=== PATIENT | female | born 1945 | race Caucasian/White ===

== ENCOUNTER → 2016-04-06 | Outpatient (CLI) | payer OTHER ==
[~2016-04-06] MED LIST: ALBU1AER9 INH; AMR2 PO; ASPEC81 PO; ATOR-24 PO; CLOP1TAB15 PO; COEN1CAP28 PO; CZR50 PO; FLUO20CA35 PO; INSUINJ8 SC; ISOS30TA3 PO; METF1000 PO; METO50TA16 PO; MULT-190 PO; NITR0.4S UT; PRIM50TA29 PO; REPA0.5T PO; VTMB122500 PO
[2016-04-06 12:28] LABS: HEMATOCRIT 36.9 % (37-47); MEAN CORPUSCULAR HGB CONC 34.1 g/dl (32-36); MEAN PLATELET VOLUME 10.1 fL (7.4-10.4); PLATELET COUNT 244 K/uL (130-400); RED BLOOD COUNT 4.34 M/uL (4.2-5.4); WHITE BLOOD COUNT 8.22 K/uL (4.8-10.8)
[2016-04-06 16:45] LABS: ALT/SGPT 26 U/L (12-78); AST/SGOT 20 U/L (15-37); BLOOD UREA NITROGEN 13 mg/dl (7-18); BUN/CREATININE RATIO 13.3 (10-20); CARBON DIOXIDE 26 mmol/L (21-32); CHLORIDE 105 mmol/L (98-107); CHOLESTEROL 134 mg/dl (0-200); CHOLESTEROL/HDL RATIO 2.7; CREATININE 0.97 mg/dl (0.60-1.20); GLUCOSE 68 mg/dl (70-99); HDL CHOLESTEROL 50 mg/dl; POTASSIUM 4.3 mmol/L (3.5-5.1); SODIUM 141 mmol/L (136-145)
[2016-04-06 16:48] LABS: ALB/GLOB RATIO 0.9 (0.9-2); ALKALINE PHOSPHATASE 65 U/L (45-117); LDL CHOLESTEROL CALCULATED 59 mg/dl; TRIGLYCERIDES 124 mg/dl (0-150); VERY LOW DENSITY LIPOPROT CALC 25 mg/dl
== END | disposition home or self-care (01) ==
LOC: C.LABBFT 09:12
PROVIDERS: ATTEND Internal Medicine
DX: I25.10 Atherosclerotic heart disease of native coronary artery without angina pectoris (principal)

== ENCOUNTER → 2016-07-20 | Outpatient (CLI) | payer OTHER ==
--- NOTE | 2016-07-20 15:08 | MAMMOGRAPHY REPORT ---
BILATERAL DIGITAL SCREENING MAMMOGRAM WITH CAD: 07/20/2016 CLINICAL HISTORY: Routine screening. Patient has no complaints. TECHNIQUE: Current study was also evaluated with a Computer Aided Detection (CAD) system. Bilatera l CC and MLO views were obtained. COMPARISON: Comparison is made to exams dated: 07/14/2015 mammogram, 08/26/2014 mammogram, 08/12/2014 m ammogram, 05/30/2013 mammogram, 05/21/2012 mammogram, and 05/17/2011 mammogram - [facility]. BREAST COMPOSITION: There are scattered areas of fibroglandular density in both breasts. FINDINGS: No suspicious masses, calcifications, or areas of architectural distortion are noted in e ither breast. There has been no significant interval change compared to prior exams. Bilateral puneet gn-appearing calcifications are not significantly changed. A biopsy marker clip is again noted in t he right lower inner quadrant. IMPRESSION: ACR BI-RADS CATEGORY 2: BENIGN There is no mammographic evidence of malignancy. A 1 year screening mammogram is recommended. The p atient will receive written notification of the results. Approximately 10% of breast cancers are not detected with mammography. A negative mammographic repor t should not delay biopsy if a clinically suggestive mass is present. Monie Pereira M.D. /:07/20/2016 12:22:39 Critical Care Nurse Specialist: Shaila FOSTER(Roddy)(M), [facility] letter sent: Normal 1/2 BI-RADS Code: ACR BI-RADS Category 2: Benign
== END | disposition home or self-care (01) ==
LOC: C.MAMM 09:09
PROVIDERS: ATTEND Internal Medicine
DX: Z12.31 Encounter for screening mammogram for malignant neoplasm of breast (principal)

== ENCOUNTER → 2016-10-09 | Outpatient (CLI) | payer OTHER ==
[2016-10-09 12:27] LABS: HEMATOCRIT 36.8 % (37-47); MEAN CELL VOLUME 86.6 fL (80-100); MEAN CORPUSCULAR HEMOGLOBIN 29.6 pg (25-34); MEAN CORPUSCULAR HGB CONC 34.2 g/dl (32-36); MEAN PLATELET VOLUME 9.9 fL (7.4-10.4); PLATELET COUNT 235 K/uL (130-400); RED BLOOD COUNT 4.25 M/uL (4.2-5.4); WHITE BLOOD COUNT 7.16 K/uL (4.8-10.8)
[2016-10-09 12:51] LABS: ESTIMATED AVERAGE GLUCOSE 212 mg/dl; HA1C FLAG Normal (Normal)
[2016-10-09 12:52] LABS: BLOOD UREA NITROGEN 15 mg/dl (7-18); GLUCOSE 125 mg/dl (70-99)
[2016-10-09 12:53] LABS: ALT/SGPT 29 U/L (12-78); BUN/CREATININE RATIO 14.9 (10-20); CALCIUM 9.3 mg/dl (8.5-10.1); CARBON DIOXIDE 28 mmol/L (21-32); CHLORIDE 107 mmol/L (98-107); CHOLESTEROL 128 mg/dl (0-200); POTASSIUM 5.3 mmol/L (3.5-5.1); SODIUM 139 mmol/L (136-145); TRIGLYCERIDES 131 mg/dl (0-150); VERY LOW DENSITY LIPOPROT CALC 26 mg/dl
[2016-10-09 13:03] LABS: ALB/GLOB RATIO 0.9 (0.9-2); ALKALINE PHOSPHATASE 67 U/L (45-117); AST/SGOT 19 U/L (15-37); CHOLESTEROL/HDL RATIO 3.3; HDL CHOLESTEROL 39 mg/dl; LDL CHOLESTEROL CALCULATED 63 mg/dl
== END | disposition home or self-care (01) ==
LOC: C.LABBFT 09:20
PROVIDERS: ATTEND Physician Assistant
DX: I25.10 Atherosclerotic heart disease of native coronary artery without angina pectoris (principal); E11.9 Type 2 diabetes mellitus without complications

== ENCOUNTER → 2017-04-23 | Outpatient (CLI) | payer OTHER ==
[2017-04-23 12:23] LABS: HEMATOCRIT 36.1 % (37-47); HEMOGLOBIN 11.7 g/dL (12.0-16.0); MEAN CELL VOLUME 87.4 fL (80-100); MEAN CORPUSCULAR HEMOGLOBIN 28.3 pg (25-34); MEAN CORPUSCULAR HGB CONC 32.4 g/dl (32-36); MEAN PLATELET VOLUME 10.7 fL (7.4-10.4); PLATELET COUNT 243 K/uL (130-400); RED CELL DISTRIBUTION WIDTH CV 13.7 % (11.5-14.5); RED CELL DISTRIBUTION WIDTH SD 43.6 fL (36.4-46.3); WHITE BLOOD COUNT 7.46 K/uL (4.8-10.8)
[2017-04-23 12:34] LABS: HEMOGLOBIN A1C 8.1 % (4.5-5.6)
[2017-04-23 12:48] LABS: ALBUMIN 3.4 gm/dl (3.4-5.0); ALT/SGPT 25 U/L (12-78); AST/SGOT 20 U/L (15-37); BLOOD UREA NITROGEN 15 mg/dl (7-18); CALCIUM 9.4 mg/dl (8.5-10.1); CARBON DIOXIDE 27 mmol/L (21-32); CHOLESTEROL 113 mg/dl (0-200); CREATININE 1.08 mg/dl (0.60-1.20); GLUCOSE 196 mg/dl (70-99); POTASSIUM 4.7 mmol/L (3.5-5.1); SODIUM 137 mmol/L (136-145)
[2017-04-23 12:51] LABS: ALKALINE PHOSPHATASE 67 U/L (45-117); LDL CHOLESTEROL CALCULATED 56 mg/dl; TOTAL PROTEIN 7.8 gm/dl (6.4-8.2)
[2017-04-23 14:13] LABS: CREATININE RANDOM URINE 79.4 mg/dl
== END | disposition home or self-care (01) ==
LOC: C.LABBFT 09:09
PROVIDERS: ATTEND Internal Medicine
DX: E11.9 Type 2 diabetes mellitus without complications (principal); E78.5 Hyperlipidemia, unspecified; I10 Essential (primary) hypertension

== ENCOUNTER → 2017-07-23 | Outpatient (CLI) | payer OTHER ==
--- NOTE | 2017-07-24 12:45 | MAMMOGRAPHY REPORT ---
BILATERAL DIGITAL SCREENING MAMMOGRAM TOMOSYNTHESIS WITH CAD: 07/23/2017 CLINICAL HISTORY: Routine screening. Patient has no complaints. TECHNIQUE: Breast tomosynthesis in addition to standard 2D mammography was performed. Current study was also evaluated with a Computer Aided Detection (CAD) system. COMPARISON: Comparison is made to exams dated: 07/20/2016 mammogram, 07/14/2015 mammogram, 09/10/2014 m ammogram, 09/10/2014 stereotactic biopsy, 08/26/2014 mammogram, and 08/12/2014 mammogram - [facility]. BREAST COMPOSITION: There are scattered areas of fibroglandular density in both breasts. FINDINGS: There is an 8 mm irregular focal asymmetry in the upper outer middle one third of the left breast, for which additional targeted ultrasound and possible additional mammographic views are veronica mmended. There are moderate vascular calcifications and scattered benign rodlike and round/coarse calcificatio ns in the breasts. No other suspicious masses, asymmetries, areas of architectural distortion or prince picious microcalcifications identified. IMPRESSION: ACR BI-RADS CATEGORY 0: INCOMPLETE EVALUATION: NEED ADDITIONAL IMAGING EVALUATION The 8 mm irregular focal asymmetry in the left upper outer breast needs additional evaluation. The patient will be called to schedule an appointment. Approximately 10% of breast cancers are not detected with mammography. A negative mammographic report should not delay biopsy if a clinically suggestive mass is present. Marline Reed M.D. ay/:07/23/2017 14:24:16 Manager Banking: Aishwarya FOSTER(Roddy)(Rey), [facility] letter sent: Addl Imaging 0 BI-RADS Code: ACR BI-RADS Category 0: Incomplete Evaluation: Need Additional Imaging Evaluation
== END | disposition home or self-care (01) ==
LOC: C.MAMM 10:57
PROVIDERS: ATTEND Internal Medicine
DX: Z12.31 Encounter for screening mammogram for malignant neoplasm of breast (principal); N64.89 Other specified disorders of breast

== ENCOUNTER → 2017-07-26 | Outpatient (CLI) | payer OTHER ==
--- NOTE | 2017-07-26 12:41 | MAMMOGRAPHY REPORT ---
ULTRASOUND OF LEFT BREAST: 07/26/2017 CLINICAL HISTORY: Callback from screening mammogram for left breast asymmetry. COMPARISON: Comparison is made to exams dated: 07/23/2017 mammogram, 07/20/2016 mammogram, 07/14/2015 m ammogram, 08/12/2014 mammogram, 05/30/2013 mammogram, and 05/21/2012 mammogram - [facility]ter. TECHNIQUE: Real-time targeted ultrasound of the left breast was performed. FINDINGS: Real-time, high-resolution targeted ultrasound was performed of the left upper outer quadra nt in the region of the 8 mm irregular focal asymmetry seen on the recent screening mammogram. In th e left 2:00 breast, 5 cm from the nipple, there is an irregular hypoechoic solid mass with non-circum scribed margins which measures 6 x 7 x 5 mm. This corresponds with the mammographic asymmetry and is highly suspicious for malignancy. Recommend ultrasound-guided core needle biopsy for further evalua tion. Targeted ultrasound was performed of the left axillary region, which shows morphologically normal lef t axillary lymph nodes without evidence of adenopathy. IMPRESSION: ACR BI-RADS CATEGORY 5: HIGHLY SUGGESTIVE OF MALIGNANCY - FOLLOW-UP RECOMMENDED 1. Irregular hypoechoic 7 mm mass in the left 2:00 breast on ultrasound, which corresponds with the n ew irregular mammographic asymmetry. The mass is suspicious for malignancy and ultrasound-guided cor e needle biopsy is recommended for further evaluation. 2. No evidence of left axillary adenopathy. A phone call was made to the physician's office to confirm faxed results were received. The patient was verbally notified of the results. She tentatively scheduled the biopsy before leaving the depart ment. I will leave it up to the patient's referring provider if she can safely discontinue baby aspi rin for a few days (preferably 5-7 days) prior to the procedure. Monie Pereira M.D. /:07/26/2017 08:57:32 Emt I/99: Shaila DAN)(Rey), [facility] letter sent: Abnormal 4/5 BI-RADS Code: ACR BI-RADS Category 5: Highly Suggestive Of Malignancy
== END | disposition home or self-care (01) ==
LOC: C.MAMM 08:29
PROVIDERS: ATTEND Internal Medicine
DX: N63.21 Unspecified lump in the left breast, upper outer quadrant (principal)

== ENCOUNTER → 2017-08-01 | Outpatient (CLI) | payer OTHER ==
--- NOTE | 2017-08-01 11:09 | Discharge Instructions ---
Discharge Instructions Procedure Procedure Date: August 01, 2017. Reason for visit: Left Mass. Discharge Discharge Date: August 01, 2017. Discharge Diagnosis: status post breast biopsy Instructions Activity Recommendations: Additional Limitations (see below) Return to School/Work: no limitations Recommended Home Diet: No Limitations Provider Instructions: ACTIVITY RECOMMENDATIONS: * No lifting, pushing, pulling or exercising the affected side for three days. RETURN TO SCHOOL/WORK: * You may return to work/school after the procedure, but do not perform any strenuous activities for 24 to 48 hours. MEDICATIONS: * Tylenol (two 325 mg) every four to six hours if needed for mild pain (if not allergic to Tylenol). DIET: * Resume previous diet. SPECIAL CARE INSTRUCTIONS: * Keep biopsy site dry for 24 hours. May shower after 24 hours, but do not soak (bathe) incision. * May remove Tegaderm (plastic patch) tomorrow AFTER showering. * Leave the steri-strips on for one week. Allow the steri-strips to fall off by themselves. If not off after one week, you may remove them. You may place a Bandaid crosswise over the strips, if desired. * Apply ice 10 minutes on and 10 minutes off as needed. * Wear a bra at bedtime to sleep more comfortably for 2-3 days. * Your referring physician should have the results after approximately 5 to 7 business days. * Call for unusual bleeding, fever, drainage, etc or if you have any questions call during normal business hours or after hours call Dr Pereira, . FOLLOW UP VISIT: Follow-up with Referring Physician as scheduled. Allergies Coded Allergies: Lisinopril (Unverified Allergy, Mild, Cough, 12/09/14) Dedrick Quan Recommendations: Call your doctor if: * Temperature above 101 degrees * Pain not relieved by pain medicine ordered * There is increased drainage or redness from any incision * You have any unanswered questions or concerns. Your Doctors Instructions noted above were prepared by provider Monie Pereira. Patient Signature Section: Patient Instructions Signature Page William Xie Patient (or Guardian) Signature/Date: I have read and understand the instructions given to me by my caregivers. Caregiver/RN/Doctor Signature/Date: The above-named patient and/or guardian has received patient instructions on this date. + Original Patient Signature Page (only) stays with chart. Please make copy for patient.
--- NOTE | 2017-08-01 15:04 | MAMMOGRAPHY REPORT ---
ULTRASOUND GUIDED BIOPSY LEFT BREAST: 08/01/2017 CLINICAL HISTORY: Left 2:00 breast mass. PATIENT CONSENT: The procedure, risks and benefits were discussed with the patient and informed writt en consent was obtained. A timeout was performed immediately prior to the procedure. PROCEDURE DESCRIPTION: With ultrasound guidance, aseptic technique, and lidocaine as the local anesth etic (1% lidocaine to anesthetize the skin and 1% lidocaine with epinephrine to anesthetize the deepe r tissues), the mass of concern in the left 2:00 breast was sampled 5 times with a 14-gauge Achieve b iopsy needle. Immediately thereafter, with ultrasound guidance, aseptic technique, and lidocaine as the local anesthetic, a metallic localizer clip was placed centrally in the mass. Direct pressure wa s applied to the site immediately post procedure and hemostasis was achieved. Postprocedure unilater al mammograms were performed to confirm placement of the clip in the expected location of the breast mass. The patient tolerated the procedure without complication. She was given wound care instructio ns. The specimens were sent to pathology for analysis. COMPARISON: Comparison is made to exams dated: 07/26/2017 ultrasound, 07/23/2017 mammogram, 07/20/2016 m ammogram, 07/14/2015 mammogram, 08/26/2014 mammogram, and 08/12/2014 mammogram - [facility]ter. IMPRESSION: ULTRASOUND GUIDED BIOPSY Ultrasound-guided core needle biopsy of the left 2:00 breast mass, with clip placement. The patient will receive pathology results from her referring provider. Monie Pereira M.D. ah/:08/01/2017 11:10:16 Medical Research Assistant: Shaila DAN)(M), [facility]
--- NOTE | 2017-08-01 15:08 | MAMMOGRAPHY REPORT ---
UNILATERAL LEFT DIGITAL DIAGNOSTIC MAMMOGRAM TOMOSYNTHESIS: 08/01/2017 CLINICAL HISTORY: Status post left breast biopsy. TECHNIQUE: Breast tomosynthesis in addition to standard 2D mammography was performed. Postprocedura l left CC and ML tomosynthesis images were obtained. COMPARISON: Comparison is made to exams dated: 07/23/2017 mammogram, 07/26/2017 ultrasound, 07/20/2016 m ammogram, 07/14/2015 mammogram, 09/10/2014 mammogram, and 09/10/2014 stereotactic biopsy - [facility]. BREAST COMPOSITION: There are scattered areas of fibroglandular density in the left breast. FINDINGS: A new ribbon-shaped biopsy marker clip is seen at the site of the biopsied mass in the left 2:00 breast. No significant postbiopsy hematoma is seen. IMPRESSION: POST PROCEDURE IMAGING FOR MARKER PLACEMENT New biopsy marker clip status post left breast biopsy. Pathology results are pending. Approximately 10% of breast cancers are not detected with mammography. A negative mammographic report should not delay biopsy if a clinically suggestive mass is present. Monie Pereira M.D. ah/:08/01/2017 11:32:59 Data Center Manager: Shaila FOSTER(R)(M), [facility] BI-RADS Code: Post Procedure Imaging For Marker Placement
== END | disposition home or self-care (01) ==
LOC: C.MAMM 10:28
PROVIDERS: ATTEND Internal Medicine
DX: N63.20 Unspecified lump in the left breast, unspecified quadrant (principal); C50.912 Malignant neoplasm of unspecified site of left female breast

== ENCOUNTER → 2017-10-30 | Outpatient (CLI) | payer OTHER ==
[~2017-10-30] MED LIST changes: -ALBU1AER9 INH; -ASPEC81 PO; -CLOP1TAB15 PO; -INSUINJ8 SC; -ISOS30TA3 PO; +NVLNI SQ; -REPA0.5T PO; +REPA1TAB40 PO; +VNTHFA/IN INH
[2017-10-30 12:45] LABS: HEMATOCRIT 34.1 % (37-47); MEAN CELL VOLUME 86.1 fL (80-100); MEAN CORPUSCULAR HEMOGLOBIN 27.8 pg (25-34); MEAN CORPUSCULAR HGB CONC 32.3 g/dl (32-36); RED CELL DISTRIBUTION WIDTH CV 14.5 % (11.5-14.5); RED CELL DISTRIBUTION WIDTH SD 45.6 fL (36.4-46.3); WHITE BLOOD COUNT 6.98 K/uL (4.8-10.8)
[2017-10-30 12:49] LABS: ALBUMIN 3.3 gm/dl (3.4-5.0); ALKALINE PHOSPHATASE 70 U/L (45-117); ALT/SGPT 25 U/L (12-78); AST/SGOT 22 U/L (15-37); BLOOD UREA NITROGEN 15 mg/dl (7-18); CALCIUM 8.8 mg/dl (8.5-10.1); CARBON DIOXIDE 24 mmol/L (21-32); CHOLESTEROL 101 mg/dl (0-200); GLUCOSE 191 mg/dl (70-99); LDL CHOLESTEROL CALCULATED 43 mg/dl; POTASSIUM 5.6 mmol/L (3.5-5.1); SODIUM 133 mmol/L (136-145); TOTAL PROTEIN 7.2 gm/dl (6.4-8.2)
[2017-10-30 13:14] LABS: BASO % 1.1 %; BASO ABS # 0.08 K/uL (0-0.2); EOS % 10.7 %; EOS ABS # 0.75 K/uL (0-0.5); IG# 0.01 K/uL (0.00-0.02); LYMPH % 22.2 %; LYMPH ABS # 1.55 K/uL (1.2-3.4); MEAN PLATELET VOLUME 12.3 fL (7.4-10.4); MONO % 9.5 %; MONO ABS # 0.66 K/uL (0.11-0.59); NEUT % 56.4 %; NEUT ABS # 3.93 K/uL (1.4-6.5); PLATELET COUNT 65 K/uL (130-400)
== END | disposition home or self-care (01) ==
LOC: C.LAB1850 10:47
PROVIDERS: ATTEND Internal Medicine
DX: I25.10 Atherosclerotic heart disease of native coronary artery without angina pectoris (principal); E11.65 Type 2 diabetes mellitus with hyperglycemia; D05.10 Intraductal carcinoma in situ of unspecified breast

== ENCOUNTER → 2017-11-05 | Outpatient (CLI) | payer OTHER ==
[~2017-11-05] MED LIST changes: +GADAVIST IV PRN
--- NOTE | 2017-11-06 14:57 | MAMMOGRAPHY REPORT ---
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 Reexcision of the medial steve n performed 10/04/2017 demonstrated 2 additional foci of DCIS. COMPARISON: Prior screening mammograms dated 07/23/2017, 07/20/2016, 08/12/2014, 05/30/2013, stereotactic right breast biopsy and postprocedure mammogram dated 09/10/2014, left breast diagnostic ultrasound da merna 07/26/2017, left breast core needle biopsy dated 08/01/2017. TECHNIQUE: Using a 1.5 Machelle magnet and dedicated breast coil, multisequence axial images were obtain ed through the breasts. After uneventful IV administration of 8 mL of Gadavist, dynamic multiphase c ontrast-enhanced axial images, and sagittal postcontrast were obtained. Temporal subtraction axial i mages and 3-D MIP images are provided. Everything was then reviewed on a 3-D workstation, [employer]. FINDINGS: Right breast: There is minimal background parenchymal enhancement. There is susceptibility artifact from a biopsy marker clip in the 6:00 posterior right breast, denoting the site of prior benign stere otactic biopsy. There is a single conspicuous focus of enhancement in the 9:00 middle one third of t he right breast measuring 4 x 4 x 5 mm (axial page 77/120, sagittal page 111/136), that demonstrates associated mixed plateau and washout kinetics, no significant T2 hyperintensity. Although this could represent background enhancement, given that it is the only conspicuous focus, targeted second look ultrasound and possible ultrasound-guided core biopsy is recommended. No other suspicious mass, non- mass enhancement or suspicious kinetics identified in the right breast. No suspicious right axillary lymphadenopathy. Left breast: There is minimal background parenchymal enhancement. There is a skin surgical scar in t he left upper outer quadrant, in addition to mild asymmetric diffuse left breast skin thickening, ski n edema and trabecular edema. There is small cylindrical surgical cavity/fluid collection measuring 1 x 3 cm at the lumpectomy bed in the 2:00 middle one third of the left breast, with expected archite ctural distortion and associated diffuse irregular non-mass enhancement throughout the surgical site. This non-mass enhancement and associated architectural distortion measures approximately 4.1 cm in AP by 2.4 cm in craniocaudal by 2.7 cm in transverse dimension and the MRI appearance could represent postsurgical change and/or residual disease. The associated kinetics are predominantly persistent e xcept for 1 small fingerlike projection along the posterior lateral/superior aspect of the surgical s ite which measures 3 mm and demonstrates plateau-type kinetics. Given this is the only focal area of plateau type kinetics near or at the surgical bed it raises suspicion for residual DCIS. No other c onspicuous non-mass enhancement, mass enhancement or suspicious kinetics identified in the left breas t. The nipple areolar complex is intact. The retromammary fat is intact. There is expected archite ctural distortion in the left axilla from lymph node sampling. No suspicious left axillary lymphaden opathy. There is susceptibility artifact from median sternotomy wires. Asymmetric enlargement and heterogene ous enhancement of the right thyroid lobe. IMPRESSION: ACR BI-RADS CATEGORY 0: INCOMPLETE EVALUATION: NEED ADDITIONAL IMAGING EVALUATION 1. One conspicuous focus of enhancement in the 9:00 middle one third of the right breast measuring 4 x 4 x 5 mm that could represent normal background enhancement although targeted second look ultrasou nd, possible ultrasound-guided core biopsy is recommended given that it is the only area of enhanceme nt within the right breast. 2. Expected architectural distortion, small 1 x 3 cm cylindrical fluid collection and associated irr egular non-mass enhancement at the lumpectomy bed in the 2:00 middle one third of the left breast. T he associated non-mass enhancement which measures approximately 4.1 x 2.4 x 2.7 cm demonstrates predo minantly persistent type kinetics, with one single 3mm fingerlike projection demonstrating plateau ty pe kinetics along the posterior lateral/superior aspect of the surgical site, which raises suspicion for an additional focus of DCIS. 3. No other suspicious mass, non-mass enhancement or suspicious kinetics identified in the left [address]ia st. 4. Stable biopsy marker clip in the 6:00 posterior right breast. Marline Reed M.D. 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
== END | disposition home or self-care (01) ==
LOC: C.MRI 09:03
PROVIDERS: ATTEND Surgery
DX: D05.12 Intraductal carcinoma in situ of left breast (principal); Z98.890 Other specified postprocedural states

== ENCOUNTER → 2017-11-07 | Outpatient (CLI) | payer OTHER ==
[~2017-11-07] MED LIST changes: -GADAVIST IV PRN
[2017-11-07 17:17] LABS: BASO % 0.4 %; BASO ABS # 0.03 K/uL (0-0.2); EOS ABS # 0.15 K/uL (0-0.5); HEMATOCRIT 33.4 % (37-47); HEMOGLOBIN 10.9 g/dL (12.0-16.0); IG# 0.02 K/uL (0.00-0.02); LYMPH % 31.7 %; LYMPH ABS # 2.33 K/uL (1.2-3.4); MEAN CELL VOLUME 86.3 fL (80-100); MEAN CORPUSCULAR HEMOGLOBIN 28.2 pg (25-34); MEAN CORPUSCULAR HGB CONC 32.6 g/dl (32-36); MEAN PLATELET VOLUME 10.3 fL (7.4-10.4); MONO % 8.2 %; NEUT % 57.4 %; NEUT ABS # 4.21 K/uL (1.4-6.5); PLATELET COUNT 274 K/uL (130-400); RED CELL DISTRIBUTION WIDTH CV 14.7 % (11.5-14.5); WHITE BLOOD COUNT 7.34 K/uL (4.8-10.8)
[2017-11-07 17:26] LABS: ALBUMIN 3.4 gm/dl (3.4-5.0); ALKALINE PHOSPHATASE 71 U/L (45-117); ALT/SGPT 26 U/L (12-78); AST/SGOT 20 U/L (15-37); BLOOD UREA NITROGEN 12 mg/dl (7-18); CALCIUM 9.1 mg/dl (8.5-10.1); CARBON DIOXIDE 23 mmol/L (21-32); CREATININE 1.03 mg/dl (0.60-1.20); GLUCOSE 217 mg/dl (70-99); SODIUM 134 mmol/L (136-145); TOTAL PROTEIN 7.5 gm/dl (6.4-8.2)
== END | disposition home or self-care (01) ==
LOC: C.LABBFT 14:07
PROVIDERS: ATTEND Internal Medicine
DX: C50.919 Malignant neoplasm of unspecified site of unspecified female breast (principal)

== ENCOUNTER 2024-05-25 10:00 | Observation (INO) ==
[2024-05-25] MEDS: SODIUM CHLORIDE 0.9% 1,000 ML IV SCH (10:48)
--- NOTE | 2024-05-25 11:00 | Emergency Department Note ---
Impression & Plan Generalized weakness, Diarrhea, Hypomagnesemia, JOBY (acute kidney injury), Pulmonary edema, Dyspnea ED Provider Note ED Provider Note NAME: CARLA MOORE AGE:78 SEX: Female : 1945 ARRIVES VIA: Private vehicle INFORMANT: Patient ED PROVIDER(s): Marj Sung DO CHIEF COMPLAINT: Diarrhea, weakness, fatigue HPI: This is an 78-year-old female who presents emergency department due to concern for 1 week of diarrhea with worsening weakness and fatigue. Patient denies nausea, vomiting, and fevers but admits to chills. She states she has intermittent brief episodes of abdominal pain. She denies any known sick contacts, no change in medications, no change in diet, no recent travel. She denies any history of IBS or IBD. She denies noting any blood with the diarrhea. She states she is having upwards of 6-7 episodes per day. PAST MEDICAL HISTORY:See Below PAST SURGICAL HISTORY:See Below FAMILY HISTORY:See Below SOCIAL HISTORY:See Below HOME MEDICATIONS:See Below ALLERGIES:See Below VITALS:See Below PHYSICAL EXAMINATION: GENERAL: alert, well appearing, well nourished, no distress, non-toxic EYE EXAM: normal conjunctiva, PERRL and EOM's grossly intact OROPHARYNX: no exudate, no erythema, lips, buccal mucosa, and tongue normal and mucous membranes are dry NECK: supple, no nuchal rigidity, no adenopathy, non-tender LUNGS: Clear to auscultation. Normal chest wall mechanics, no w/r/r HEART: no murmurs, S1 normal and S2 normal ABDOMEN: abdomen soft, non-tender, normo-active bowel sounds, no masses, no rebound or guarding. SKIN: no rashes, petechiae, orbruising UPPER EXTREMITIES: upper extremities are grossly normal. FROM, nml pulses b/l. LOWER EXTREMITIES: No pitting edema. FROM, nml pulses b/l. NEURO EXAM: Normal sensorium, cranial nerves II-XII grossly intact, normal speech, no facial droop,nogross weakness of arms, no gross weakness of legs. Gross sensation intact. No ataxia. Vital Signs: reviewed and remarkable Differential Diagnosis: dehydration, stroke, anemia, hypoglycemia, hyponatremia, hypernatremia, urinary tract infection, pneumonia, bronchitis, sepsis, gastroenteritis, additional abdominal pathology, metabolic abnormalities, as well as others were considered MEDICAL DECISION MAKING: This is an 78-year-old female who presents emergency department due to concern for 1 week of persistent diarrhea with increased weakness and fatigue. Unclear etiology per bedside discussion. She was afebrile and hemodynamically stable on arrival. She did appear clinically dehydrated. Labs drawn and sent, IV established, EKG performed at bedside and interpreted by me and patient monitored on telemetry. She was started on IV fluid rehydration. Patient was noted to have hypomagnesemia and she was given repletion. She was noted to be hyperglycemic as well and was given IV insulin. Following further rehydration and monitoring this was rechecked and was still elevated and she was given an additional dose of IV insulin. No evidence for DKA. Patient reported feeling slight improvement and was interested in p.o. trial. She tolerated ice chips and then water without difficulty. She then was able to tolerate devaughn dakotah. She did not have any further diarrhea while present in the emergency department. Patient was noted to have hyponatremia although I suspect that some of this was related to her hyperglycemia as well as decreased oral intake throughout the week. Patient's blood work was rechecked as a precaution to monitor for improvement as clinically she reported feeling well and her preference was to be discharged home. Patient was able to urinate, a specimen was obtained and sent and was suggestive of infection. She was started on IV antibiotics. I suspect some of this is due to the recent diarrhea this week and keeping up with personal hygiene. After patient tolerated p.o., we discussed ambulatory trial. While ambulating patient became very tachypneic and dyspneic. I reexamined the patient and noted bilateral rails. A stat bedside chest x-ray was ordered now showing new pulmonary edema. Patient's fluids were stopped and she was given a dose of IV Lasix. Due to concern for evolving symptoms and tenuous volume status, we discussed further inpatient management. Case discussed with the hospitalist team for additional evaluation and management. Patient did remain hemodynamically stable and was not overly hypoxic despite her tachypnea and increased work of breathing. Consultation(s): 1644: Discussed with Dr. Kim, [facility] hospitalist team, for additional evaluation and management. ER Treatment Provided: See below Diagnostics Interpreted By Me: -ECG: Normal sinus at 73, normal axis, normal intervals, nonspecific ST/T wave changes -Cardiac Monitoring: An order was placed for continuous cardiac monitoring. The monitor shows a rate of 77 with normal sinus rhythm. -Laboratory studies: As stated above and show below. -Imaging studies: cxr: Bilateral pulmonary edema, no pleural effusions, no wide mediastinum, no focal consolidation Triage Nursing Note Reviewed Prior/Outside Records Reviewed Critical care: Critical care of 44 min performed to assess and manage high likelihood of life- threatening electrolyte abnormalities and acute pulmonary edema, involving labs and imaging performed with assessment to evaluate diarrhea, dehydration, and acute dyspnea diagnosis with frequent reassessment. This time includes bedside time, treatment discussions with patient/family/consultants, documentation time and excludes procedure time. Past Med/Surg History Problem List (Updated 05/25/24 @ 18:23 by Marj Sung DO) Dyspnea (Acute) Pulmonary edema (Acute) JOBY (acute kidney injury) (Acute) Hypomagnesemia (Acute) UTI (urinary tract infection) Diarrhea (Acute) Generalized weakness (Acute) Gait disorder Allergic rhinitis Overweight (BMI 25.0-29.9) Abnormal PFT Dyspnea on exertion Solitary pulmonary nodule Wheeze Postmenopausal estrogen deficiency Sore throat Congestion of nasal sinus Cough Headache Bacterial sinusitis Sensorineural hearing loss of both ears Diabetic nephropathy associated with type 2 diabetes mellitus Uncontrolled type 2 diabetes mellitus with hyperglycemia, with long-term current use of insulin Seborrheic keratoses Abrasion, right lower leg, initial encounter Subacromial bursitis Rotator cuff tendinitis Toe fracture Glenohumeral arthritis Toe swelling Left shoulder pain CAD (coronary artery disease) (Chronic) 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) Tremor (Chronic) Osteopenia (Acute) Obesity (Acute) Hypertension (Chronic) Dyslipidemia (Chronic) Depression (Chronic) Breast cancer (Chronic 07/2017) left breast infiltrating ductal CA dx 07/2017 (ER+/WI+, Her 2 -) and right breast invasive ductal CA dx 11/2017 (ER+/WI+, Her 2 +), s/p elective B/L mastectomy with right axillary dissection (0/7 nodes +), on Arimedex since Jan 2018 Arthralgia of multiple sites (Acute) Arteriosclerotic cardiovascular disease (Acute) Chronic kidney disease Type 2 diabetes mellitus treated with insulin (Chronic) 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 Sinusitis Parkinsonism Anemia (Chronic) Tremor of both hands (Chronic) Internal hemorrhoid (Chronic) Gait instability (Chronic) Hypercalcemia Hypomagnesemia Hypophosphatemia Medical History Arthritis Hx of breast cancer Anxiety Neuropathy Myocardial Infarction History of COVID-19 Thrombocytopenia DM type 2 (diabetes mellitus, type 2) CAD (coronary artery disease) Tremor Hypertension Hyperlipidemia Unstable angina (03/16/14) Surgical History H/O bilateral mastectomy H/O lumpectomy History of tooth extraction History of surgery History of colonoscopy History of trigger finger History of open reduction and internal fixation (ORIF) procedure History of cataract surgery History of cardiac cath History of coronary artery bypass graft Family History Sister Breast cancer Father Alcoholism Mother Heart disease Uncle Heart disease Daughter Family history of diabetes mellitus Other No family history of adverse response to anesthesia Denies family history of Ovarian cancer Prostate cancer Myocardial infarction Colorectal cancer Social History Smoking Status: Former smoker Tobacco Type: Cigarettes Age Started Using Tobacco: 13; Age Quit Using Tobacco: 43; packs per day: 0.75; Smoking End Date: 35 years ago; Second Hand Exposure: No; Do You Dip or Chew Tobacco: No; Hx Alcohol Use: No Hx Substance Use: No Preferred Language: Albanian Communication Ability: Effective Visual Impairment: No Limitations Hearing Ability: Normal Composing Room Machinist Required: No Beliefs That Will Affect Care: None marital status: Current Living Situation: Spouse current occupational status: retired 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 [employer] Other Information That Helps Us Care for You: No Feels Safe at Home: Yes Safety Concerns: Feels Safe At This Time Childhood Exposure to Second-Hand Smoke: Yes Diet: regular caffeine: Yes Dental Care, Regularly: No Physical Activity Frequency: Does not Exercise Seatbelt Use: always Sunscreen Use: Yes Assistive Devices: None Allergies Allergies Allergy/AdvReac Type Severity Reaction Status Date / Time lisinopril Allergy Intermediate Cough Verified 05/12/24 14:17 isosorbide AdvReac Headache Verified 05/12/24 14:17 Home Meds Home Medications Medication Instructions Recorded Confirmed anastrozole 1 mg tablet 1 mg PO QAM 11/08/18 05/25/24 coenzyme Q10 200 mg capsule 200 mg PO QAM 01/06/20 05/25/24 lancets 33 gauge (OneTouch Delica 02/09/20 05/12/24 Plus Lancet) choline [id number] 1 tab PO QAM 08/27/20 05/25/24 tablet vit C 250 mg-vit E 90 mg-zinc 40 1 tab PO BID 09/26/21 05/25/24 mg-copper 1 ev-vvsesy-[id number] capsule (PreserVision AREDS-2) prevagen 1 tab PO DAILY 05/29/22 05/25/24 cyanocobalamin (vitamin B-12) 1,000 mcg PO .3XWK 12/19/23 05/25/24 2,500 mcg tablet Previous Rx's Medication Instructions Recorded blood-glucose meter (OneTouch #1 ea 07/29/20 Verio Meter) Spacer for Inhaler #1 ea 09/27/21 blood-glucose meter (OneTouch #1 ea 03/24/22 Verio Flex Meter) clopidogrel 75 mg tablet 75 mg PO DAILY #90 tabs 05/08/23 losartan 50 mg tablet 50 mg PO QAM #90 tabs 05/08/23 insulin NPH isoph U-100 human 100 See Rx Instructions subcut 05/23/23 unit/mL (3 mL) subcutaneous pen .COMPLEX 90 days #90 mL (Novolin N FlexPen) insulin regular human 100 unit/mL 30 unit (0.3 mL) subcut BID 90 05/23/23 (3 mL) subcutaneous pen (Novolin R days #60 mL FlexPen) pen needle, diabetic 32 gauge x #400 ea 05/23/2332" (BD Ultra-Fine Suzette Pen Needle) metoprolol tartrate 50 mg tablet 50 mg PO BID #180 tabs 05/31/23 (Lopressor) ipratropium 0.5 mg-albuterol 3 mg 3 ml inhalation Q4H PRN wheezing 07/10/23 (2.5 mg base)/3 mL nebulization #180 mL soln nebulizer and compressor #1 ea 07/10/23 OneTouch Verio test strips (blood #300 ea 07/30/23 sugar diagnostic) budesonide 0.5 mg/2 mL suspension 0.5 mg (2 mL) inhalation BID #60 mL 07/30/23 for nebulization alendronate 70 mg tablet 70 mg PO .COMPLEX #5 tabs 12/19/23 atorvastatin 80 mg tablet 80 mg PO QPM #90 tabs 01/08/24 nitroglycerin 0.4 mg sublingual 0.4 mg sublingual Q5M PRN chest 01/08/24 tablet (Nitrostat) pain #25 tabs albuterol sulfate 90 mcg/actuation 2 puff inhalation Q6H PRN Wheezing 01/17/24 aerosol inhaler #18 grams metformin 1,000 mg tablet 1,000 mg PO BID #180 tabs 01/21/24 fluoxetine 20 mg capsule (Prozac) 20 mg PO QAM #90 caps 04/24/24 primidone 50 mg tablet (Mysoline) 100 mg (2 x 50 mg) PO BID 90 days 05/06/24 #360 tabs amlodipine 5 mg tablet 5 mg PO QAM #90 tabs 05/07/24 Results & Data (ED) Vital Signs Vital Signs - 24 hr 05/25/24 10:02 05/25/24 10:45 05/25/24 11:12 Temperature 36.9 C Temperature Source Oral Pulse Rate 76 67 67 Pulse Rate [Apical] Pulse Rate from SpO2 Sensor 65 67 Pulse Rhythm [Apical] Respiratory Rate 18 13 20 Respiratory Effort / Characteristics Respiratory Depth Blood Pressure 122/65 Blood Pressure [Right Arm] Blood Pressure Mean 84 Blood Pressure Mean [Right Arm] Pulse Oximetry 98 97 92 Oxygen Delivery Method Room Air Sepsis New/Unexplained Change in Mental Status No Sepsis Action Taken by Nursing No Action Required 05/25/24 11:54 05/25/24 11:54 05/25/24 11:56 Temperature Temperature Source Pulse Rate 74 73 Pulse Rate [Apical] Pulse Rate from SpO2 Sensor 73 Pulse Rhythm [Apical] Respiratory Rate 21 Respiratory Effort / Characteristics Respiratory Depth Blood Pressure 141/87 H Blood Pressure [Right Arm] Blood Pressure Mean 112 Blood Pressure Mean [Right Arm] Pulse Oximetry 95 Oxygen Delivery Method Sepsis New/Unexplained Change in Mental Status Sepsis Action Taken by Nursing 05/25/24 11:58 05/25/24 12:00 05/25/24 12:30 Temperature Temperature Source Pulse Rate Pulse Rate [Apical] 77 Pulse Rate from SpO2 Sensor Pulse Rhythm [Apical] Respiratory Rate 22 Respiratory Effort / Characteristics Respiratory Depth Blood Pressure 151/83 H 111/73 Blood Pressure [Right Arm] 141/87 H Blood Pressure Mean 106 78 Blood Pressure Mean [Right Arm] 105 Pulse Oximetry 97 Oxygen Delivery Method Room Air Sepsis New/Unexplained Change in Mental Status Sepsis Action Taken by Nursing 05/25/24 12:30 05/25/24 13:00 05/25/24 13:00 Temperature Temperature Source Pulse Rate 71 73 Pulse Rate [Apical] Pulse Rate from SpO2 Sensor 69 73 Pulse Rhythm [Apical] Respiratory Rate 26 H 21 Respiratory Effort / Characteristics Respiratory Depth Blood Pressure 139/70 Blood Pressure [Right Arm] Blood Pressure Mean 105 Blood Pressure Mean [Right Arm] Pulse Oximetry 96 97 Oxygen Delivery Method Sepsis New/Unexplained Change in Mental Status Sepsis Action Taken by Nursing 05/25/24 13:30 05/25/24 13:31 05/25/24 13:34 Temperature Temperature Source Pulse Rate 70 Pulse Rate [Apical] 72 Pulse Rate from SpO2 Sensor Pulse Rhythm [Apical] Regular Respiratory Rate 25 H 18 Respiratory Effort / Characteristics Non-Labored Spontaneous Respiratory Depth Normal Blood Pressure 137/64 Blood Pressure [Right Arm] 137/64 Blood Pressure Mean 76 Blood Pressure Mean [Right Arm] 88 Pulse Oximetry 97 Oxygen Delivery Method Room Air Sepsis New/Unexplained Change in Mental Status Sepsis Action Taken by Nursing 05/25/24 14:00 05/25/24 14:00 05/25/24 14:27 Temperature Temperature Source Pulse Rate 71 70 Pulse Rate [Apical] Pulse Rate from SpO2 Sensor 72 70 Pulse Rhythm [Apical] Respiratory Rate 27 H 28 H Respiratory Effort / Characteristics Respiratory Depth Blood Pressure 110/88 Blood Pressure [Right Arm] Blood Pressure Mean 99 Blood Pressure Mean [Right Arm] Pulse Oximetry 96 95 Oxygen Delivery Method Sepsis New/Unexplained Change in Mental Status Sepsis Action Taken by Nursing 05/25/24 14:35 05/25/24 14:42 05/25/24 15:45 Temperature Temperature Source Pulse Rate 74 75 Pulse Rate [Apical] Pulse Rate from SpO2 Sensor Pulse Rhythm [Apical] Respiratory Rate 30 H 26 H Respiratory Effort / Characteristics Respiratory Depth Blood Pressure 119/64 142/74 H Blood Pressure [Right Arm] Blood Pressure Mean 85 96 Blood Pressure Mean [Right Arm] Pulse Oximetry 93 Oxygen Delivery Method Sepsis New/Unexplained Change in Mental Status Sepsis Action Taken by Nursing 05/25/24 16:01 05/25/24 17:03 05/25/24 18:00 Temperature Temperature Source Pulse Rate 75 72 75 Pulse Rate [Apical] Pulse Rate from SpO2 Sensor 75 76 Pulse Rhythm [Apical] Respiratory Rate 27 H 23 24 Respiratory Effort / Characteristics Respiratory Depth Blood Pressure 145/75 H 155/81 H 118/94 Blood Pressure [Right Arm] Blood Pressure Mean 86 105 102 Blood Pressure Mean [Right Arm] Pulse Oximetry 92 93 95 Oxygen Delivery Method Sepsis New/Unexplained Change in Mental Status Sepsis Action Taken by Nursing Laboratory Data 05/26/24 08:07 05/26/24 08:07 Lab Results 05/25/24 05/25/24 05/25/24 Range/Units 10:46 12:43 14:25 WBC 11.67 H (4.8-10.8) K/ul RBC 3.45 L (4.20-5.40) M/uL Hgb 9.9 L (12.0-16.0) g/dl Hct 29.4 L (37.0-47.0) % MCV 85.2 (80.0-100.0) fL MCH 28.7 (25.0-34.0) pg MCHC 33.7 (32.0-36.0) g/dL RDW Std Deviation 41.0 (36.4-46.3) fL RDW Coeff of Sarina 13.2 (11.5-14.5) % Plt Count 273 (130-400) K/uL MPV 10.6 (9.4-12.4) fL Immature Gran % (Auto) 0.3 % Neut % (Auto) 85.9 % Lymph % (Auto) 7.4 % [place] % (Auto) 5.9 % Eos % (Auto) 0.3 % Baso % (Auto) 0.2 % Neut # (Auto) 10.04 H (1.40-6.50) K/uL Lymph # (Auto) 0.86 L (1.20-3.40) K/uL [place] # (Auto) 0.69 H (0.11-0.59) K/uL Eos # (Auto) 0.03 (0.00-0.50) K/uL Baso # (Auto) 0.02 (0.00-0.20) K/uL Immature Gran # (Auto) 0.03 (0.01-0.20) K/uL Sodium 128 L (136-145) mmol/L Potassium 4.4 (3.5-5.1) mmol/L Chloride 98 (98-107) mmol/L Carbon Dioxide 23 (21-32) mmol/L Anion Gap 7 (3-11) BUN 26 H (6-23) mg/dl Creatinine 1.24 H (0.6-1.2) mg/dl Est Cr Clr Drug Dosing 33.9 ml/min eGFR 43.99 BUN/Creatinine Ratio 21.0 H (10-20) Glucose 387 H* (70-99(Fasting)) mg/dl POC Glucose 348 H* (70-99) mg/dl Lactate (0.4-2.0) mmol/L Calcium 8.9 (8.6-10.3) mg/dl Magnesium 1.3 L (1.7-2.4) mg/dl Total Bilirubin 0.4 (0.2-1.0) mg/dl AST 23 (13-39) U/L ALT 24 (7-52) U/L Alkaline Phosphatase 56 (34-104) U/L Total Protein 6.5 (6.0-8.3) gm/dl Albumin 3.2 L (3.4-5.0) gm/dl Globulin 3.3 (2.5-4.0) gm/dl Albumin/Globulin Ratio 1.0 (0.9-2) Lipase 142 H (11-82) U/L TSH 2.490 (0.300-4.500) uIu/ml Urine Color Yellow Urine Appearance Cloudy A (Clear) Urine pH 6.0 (4.5-7.5) Ur Specific [place] 1.032 H (1.000-1.030) Urine Protein 1+ H (Negative) Urine Glucose (UA) 2+ H (Negative) Urine Ketones Negative (Negative) Urine Blood 1+ H (Negative) Urine Nitrite Positive A (Negative) Urine Bilirubin Negative (Negative) Urine Urobilinogen Negative (Negative) Ur Leukocyte Esterase 2+ H (Negative) Urine WBC (Auto) >50 H (0-5) /hpf Urine RBC (Auto) 0-2 (0-2) /hpf U Hyaline Cast (Auto) 3-5 H (0-2) /lpf U Epithel Cells (Auto) 0-2 (0-2) /hpf Urine Bacteria (Auto) 4+ H (None Seen) 05/25/24 05/25/24 Range/Units 14:45 16:02 WBC (4.8-10.8) K/ul RBC (4.20-5.40) M/uL Hgb (12.0-16.0) g/dl Hct (37.0-47.0) % MCV (80.0-100.0) fL MCH (25.0-34.0) pg MCHC (32.0-36.0) g/dL RDW Std Deviation (36.4-46.3) fL RDW Coeff of Sarina (11.5-14.5) % Plt Count (130-400) K/uL MPV (9.4-12.4) fL Immature Gran % (Auto) % Neut % (Auto) % Lymph % (Auto) % [place] % (Auto) % Eos % (Auto) % Baso % (Auto) % Neut # (Auto) (1.40-6.50) K/uL Lymph # (Auto) (1.20-3.40) K/uL [place] # (Auto) (0.11-0.59) K/uL Eos # (Auto) (0.00-0.50) K/uL Baso # (Auto) (0.00-0.20) K/uL Immature Gran # (Auto) (0.01-0.20) K/uL Sodium 127 L (136-145) mmol/L Potassium 4.4 (3.5-5.1) mmol/L Chloride 98 (98-107) mmol/L Carbon Dioxide 23 (21-32) mmol/L Anion Gap 6 (3-11) BUN 25 H (6-23) mg/dl Creatinine 1.22 H (0.6-1.2) mg/dl Est Cr Clr Drug Dosing 34.5 ml/min eGFR 44.86 BUN/Creatinine Ratio 20.5 H (10-20) Glucose 331 H* (70-99(Fasting)) mg/dl POC Glucose 313 H* (70-99) mg/dl Lactate 1.3 (0.4-2.0) mmol/L Calcium 8.4 L (8.6-10.3) mg/dl Magnesium (1.7-2.4) mg/dl Total Bilirubin (0.2-1.0) mg/dl AST (13-39) U/L ALT (7-52) U/L Alkaline Phosphatase (34-104) U/L Total Protein (6.0-8.3) gm/dl Albumin (3.4-5.0) gm/dl Globulin (2.5-4.0) gm/dl Albumin/Globulin Ratio (0.9-2) Lipase 114 H (11-82) U/L TSH (0.300-4.500) uIu/ml Urine Color Urine Appearance (Clear) Urine pH (4.5-7.5) Ur Specific [place] (1.000-1.030) Urine Protein (Negative) Urine Glucose (UA) (Negative) Urine Ketones (Negative) Urine Blood (Negative) Urine Nitrite (Negative) Urine Bilirubin (Negative) Urine Urobilinogen (Negative) Ur Leukocyte Esterase (Negative) Urine WBC (Auto) (0-5) /hpf Urine RBC (Auto) (0-2) /hpf U Hyaline Cast (Auto) (0-2) /lpf U Epithel Cells (Auto) (0-2) /hpf Urine Bacteria (Auto) (None Seen) Administered Medications Acetaminophen (Acetaminophen 325 Mg Tab) 650 mg PO Q4H PRN PRN Reason: pain/fever Stop: 06/24/24 17:16 Last Admin: 05/26/24 16:06 Dose: 650 mg Documented By: Admin: 05/26/24 05:30 Dose: 650 mg Documented By: AMRITA Amlodipine Besylate (Amlodipine Besylate 5 Mg Tab) [facility] [place] Stop: 06/25/24 08:59 Last Admin: 05/26/24 09:03 Dose: 5 mg Documented By: COLEMAN Anastrozole (Anastrozole 1 Mg Tab) 1 [facility] [place] Stop: 06/25/24 08:59 Last Admin: 05/26/24 09:03 Dose: 1 mg Documented By: COLEMAN Co-signed By: IZA Atorvastatin Calcium (Atorvastatin 40 Mg Tab) 80 mg PO QPM [facility] Stop: 06/24/24 20:59 Last Admin: 05/25/24 20:38 Dose: 80 mg Documented By: AMRITA Budesonide (Budesonide 0.5 Mg/2 Ml Vial (Pulmicort)) 0.5 mg INH BID [facility] Stop: 06/24/24 20:59 Last Admin: 05/26/24 06:14 Dose: 0.5 mg Documented By: Admin: 05/25/24 21:47 Dose: 0.5 mg Documented By: MARTHA Clopidogrel Bisulfate (Clopidogrel Bisulfate 75 Mg Tab) 75 mg PO DAILY [facility] Stop: 06/25/24 08:59 Last Admin: 05/26/24 09:03 Dose: 75 mg Documented By: COLEMAN Fluoxetine HCl (Fluoxetine Hcl 20 Mg Cap) 20 mg PO QAM [facility] Stop: 06/25/24 08:59 Last Admin: 05/26/24 09:03 Dose: 20 mg Documented By: COLEMAN Heparin Sodium (Porcine) (Heparin Sod 5,000 Unit/0.5 Ml Vial) 5,000 units SQ Q12 [facility] Stop: 06/24/24 20:59 Last Admin: 05/26/24 09:04 Dose: 5,000 units Documented By: Admin: 05/25/24 20:41 Dose: 5,000 units Documented By: AMRITA Ceftriaxone Sodium (Rocephin) 2,000 mg in 50 mls @ 100 mls/hr IV Q24H [facility] Stop: 05/31/24 15:49 Last Admin: 05/26/24 16:07 Dose: 100 mls/hr Documented By: COLEMAN Insulin Aspart (Insulin Aspart Per Unit Charge) 0 units SC ACHS [facility] Stop: 06/24/24 20:59 Last Admin: 05/26/24 13:08 Dose: 13 units Documented By: COLEMAN Co-signed By: IZA Admin: 05/26/24 09:05 Dose: 8 units Documented By: COLEMAN Co-signed By: IZA Admin: 05/25/24 20:41 Dose: 15 units Documented By: AMRITA Co-signed By: LESLIE Metoprolol Tartrate (Metoprolol Tartrate 50 Mg Tab) 50 mg PO BID [facility] Stop: 06/24/24 20:59 Last Admin: 05/26/24 09:03 Dose: 50 mg Documented By: Admin: 05/25/24 20:38 Dose: 50 mg Documented By: AMRITA Primidone (Primidone 50 Mg Tab) 100 mg PO BID [facility] Stop: 06/24/24 20:59 Last Admin: 05/26/24 09:03 Dose: 100 mg Documented By: Admin: 05/25/24 20:38 Dose: 100 mg Documented By: AMRITA Discontinued Medications Furosemide (Furosemide 40 Mg/4 Ml Vial) 40 mg IV ONE ONE Stop: 05/25/24 16:41 Last Admin: 05/25/24 17:19 Dose: 40 mg Documented By: POPEYE Sodium Chloride (Nss) 1,000 mls @ 250 mls/hr IV .Q4H [facility] Stop: 05/26/24 10:44 Last Infusion: 05/25/24 16:54 Dose: 0 mls/hr Documented By: Admin: 05/25/24 15:11 Dose: 250 mls/hr Documented By: Infusion: 05/25/24 14:55 Dose: Infused Documented By: Admin: 05/25/24 10:48 Dose: 250 mls/hr Documented By: RUT Magnesium Sulfate/Dextrose (Magnesium Sulfate / D5w) 1 gm in 100 mls @ 100 mls/hr IV Q1H [facility] Stop: 05/25/24 13:51 Last Infusion: 05/25/24 13:46 Dose: Infused Documented By: Admin: 05/25/24 12:32 Dose: 100 mls/hr Documented By: Infusion: 05/25/24 12:32 Dose: Infused Documented By: Admin: 05/25/24 11:55 Dose: 100 mls/hr Documented By: RUT Acetaminophen (Ofirmev) 1,000 mg in 100 mls @ 400 mls/hr IV NOW STA Stop: 05/25/24 13:35 Last Infusion: 05/25/24 13:46 Dose: Infused Documented By: Admin: 05/25/24 13:32 Dose: 400 mls/hr Documented By: RUT Ceftriaxone Sodium (Rocephin) 2,000 mg in 50 mls @ 100 mls/hr IV NOW STA Stop: 05/25/24 15:47 Last Infusion: 05/25/24 16:32 Dose: Infused Documented By: Admin: 05/25/24 15:49 Dose: 100 mls/hr Documented By: POPEYE Magnesium Sulfate/Dextrose (Magnesium Sulfate / D5w) 1 gm in 100 mls @ 50 mls/hr IV Q2H [facility] Stop: 05/25/24 18:29 Last Infusion: 05/25/24 20:46 Dose: Infused Documented By: Admin: 05/25/24 17:19 Dose: 50 mls/hr Documented By: POPEYE Insulin Glargine (Lantus Per Unit Charge) 25 units SQ BID [facility] Stop: 06/24/24 20:59 Last Admin: 05/26/24 09:04 Dose: 25 units Documented By: COLEMAN Co-signed By: IZA Admin: 05/25/24 20:42 Dose: 25 units Documented By: AMRITA Co-signed By: EFK Insulin Human Regular (Novolin-R Insulin Per Unit Charge) 4 units IV NOW STA Stop: 05/25/24 11:48 Last Admin: 05/25/24 11:55 Dose: 4 units Documented By: RUT Co-signed By: TNK Insulin Human Regular (Novolin-R Insulin Per Unit Charge) 4 units IV NOW STA Stop: 05/25/24 15:21 Last Admin: 05/25/24 15:45 Dose: 4 units Documented By: POPEYE Co-signed By: RUPERTO Imaging Data Radiologist's Impression: Abdomen/Pelvis CT 05/25/24 12:[address] WITH IV CONTRAST CT DOSE: 1171.13 mGy.cm HISTORY: Acute generalized abdominal pain with diarrhea diarrhea, anemia TECHNIQUE: Multiaxial CT images of the abdomen and pelvis were performed following the IV administration of 94 cc of Optiray, A dose lowering technique was utilized adhering to the principles of ALARA. COMPARISON STUDY: None. FINDINGS: Cardiomegaly. Median sternotomy with coronary artery calcifications. Small pleural effusions. Interstitial pulmonary edema with mild bibasilar atelectasis. No pneumatosis or pneumoperitoneum. Unremarkable spleen, pancreas and adrenal glands. Mildly distended gallbladder. Mild marginal lobulated liver suggestive of cirrhosis. Small left hepatic lobe cyst. Patency of the hepatic and portal veins. Cortical thinning of the kidneys with bilateral perinephric stranding. Urothelial thickening of the renal collecting systems. 4 mm calcification of the superior pole left kidney. Urinary bladder wall thickening with partial distention. No adnexal mass lesions. Retroaortic left renal vein. Atherosclerosis of the aorta and branch vessels. There is suggestion of high-grade stenosis in the right common femoral artery secondary to calcified plaque on image 299. Colonic diverticulosis without acute diverticulitis. No bowel obstruction or bowel wall thickening. Distal esophageal wall thickening with small hiatal hernia. Normal appendix. No acute fracture. IMPRESSION: 1. Bladder wall thickening with partial distention. Correlate with urinalysis. 2. Bilateral perinephric stranding with urothelial thickening. Correlate with urinalysis to exclude infection. 3. Cardiomegaly with interstitial pulmonary edema and small pleural effusions. 4. Cirrhotic morphology of the liver. 5. Additional findings as above. ACT 112: Negative or not required by law. The above report was generated using voice recognition software. It may contain grammatical, syntax or spelling errors. Electronically signed by: Surinder Valdez M.D. 05/25/2024 1:02 PM Chest X-Ray 05/25/24 16:20 Clinical History: Shortness of breath Technique: A frontal view of the chest was obtained Comparison is made to the prior examination dated 03/24/2024 Findings: There is worsened diffuse interstitial prominence, most likely due to pulmonary edema. The heart size is at the upper limit of normal. No pleural effusion or pneumothorax is seen. No fracture is noted. Sternal wires are present Impression: Diffuse interstitial prominence, most likely due to pulmonary edema Electronically signed by Luis Pyle 05-25-2024 4:46 PM Discharge Plan Visit Data Chief Complaint: Weakness Stated Complaint: WEAK, CAN'T EAT/POOR APPETITE ED Provider: Marj Sung Discharge Problem: Generalized weakness, Diarrhea, Hypomagnesemia, JOBY (acute kidney injury), Pulmonary edema, Dyspnea Patient Disposition: Admitted As Inpatient Discharge Instructions Interventions: ED Discharge Assessment Last Done: 05/25/24 18:39
[2024-05-25 11:26] LABS: Basophils # (auto) 0.02 K/uL (0.00-0.20); Basophils % (auto) 0.2 %; Eosinophils # (auto) 0.03 K/uL (0.00-0.50); Eosinophils % (auto) 0.3 %; Hematocrit (blood only) 29.4 % (37.0-47.0); Hemoglobin 9.9 g/dl (12.0-16.0); Immature Granulocytes # (auto) 0.03 K/uL (0.01-0.20); Immature Granulocytes % (auto) 0.3 %; Lymphocytes # (auto) 0.86 K/uL (1.20-3.40); Lymphocytes % (auto) 7.4 %; Mean Corpuscular Hemoglobin 28.7 pg (25.0-34.0); Mean Corpuscular Hgb Conc 33.7 g/dL (32.0-36.0); Mean Corpuscular Volume 85.2 fL (80.0-100.0); Mean Platelet Volume 10.6 fL (9.4-12.4); Monocytes # (auto) 0.69 K/uL (0.11-0.59); Monocytes % (auto) 5.9 %; Neutrophils # (auto) 10.04 K/uL (1.40-6.50); Neutrophils % (auto) 85.9 %; Platelet Count 273 K/uL (130-400); RDW Coefficient of Variation 13.2 % (11.5-14.5); Red Blood Count 3.45 M/uL (4.20-5.40); White Blood Count 11.67 K/ul (4.8-10.8)
[2024-05-25 11:46] LABS: Albumin Level 3.2 gm/dl (3.4-5.0); Bilirubin,Total 0.4 mg/dl (0.2-1.0); Calcium 8.9 mg/dl (8.6-10.3); Creatinine Clr Calc Pharmacy 33.9 ml/min; Globulin 3.3 gm/dl (2.5-4.0); Magnesium 1.3 mg/dl (1.7-2.4); Potassium 4.4 mmol/L (3.5-5.1); Total Protein 6.5 gm/dl (6.0-8.3)
[2024-05-25 11:55] LABS: Thyroid Stimulating Hormone 2.49 uIu/ml (0.300-4.500)
[2024-05-25] MEDS: NovoLIN-R INSULIN PER UNIT CHARGE IV STA ×2 (11:55→15:45)
[2024-05-25] MEDS: MAGNESIUM SULFATE / D5W 1 GM/100 ML BAG IV SCH ×2 (11:55→17:19)
--- NOTE | 2024-05-25 13:05 | CT Scan Report ---
ABDOMEN AND PELVIS CT WITH IV CONTRAST CT DOSE: 1171.13 mGy.cm HISTORY: Acute generalized abdominal pain with diarrhea diarrhea, anemia TECHNIQUE: Multiaxial CT images of the abdomen and pelvis were performed following the IV administrat ion of 94 cc of Optiray, A dose lowering technique was utilized adhering to the principles of ALARA. COMPARISON STUDY: None. FINDINGS: Cardiomegaly. Median sternotomy with coronary artery calcifications. Small pleural effusion s. Interstitial pulmonary edema with mild bibasilar atelectasis. No pneumatosis or pneumoperitoneum. Unremarkable spleen, pancreas and adrenal glands. Mildly distended gallbladder. Mild marginal lobulat ed liver suggestive of cirrhosis. Small left hepatic lobe cyst. Patency of the hepatic and portal vei ns. Cortical thinning of the kidneys with bilateral perinephric stranding. Urothelial thickening of t he renal collecting systems. 4 mm calcification of the superior pole left kidney. Urinary bladder wal l thickening with partial distention. No adnexal mass lesions. Retroaortic left renal vein. Atheroscl erosis of the aorta and branch vessels. There is suggestion of high-grade stenosis in the right commo n femoral artery secondary to calcified plaque on image 299. Colonic diverticulosis without acute diverticulitis. No bowel obstruction or bowel wall thickening. D istal esophageal wall thickening with small hiatal hernia. Normal appendix. No acute fracture. IMPRESSION: 1. Bladder wall thickening with partial distention. Correlate with urinalysis. 2. Bilateral perinephric stranding with urothelial thickening. Correlate with urinalysis to exclude i nfection. 3. Cardiomegaly with interstitial pulmonary edema and small pleural effusions. 4. Cirrhotic morphology of the liver. 5. Additional findings as above. ACT 112: Negative or not required by law. The above report was generated using voice recognition software. It may contain grammatical, syntax o r spelling errors. Electronically signed by: Surinder Valdez M.D. 05/25/2024 1:02 PM
[2024-05-25] MEDS: ACETAMINOPHEN 1,000 MG/100 ML VIAL IV STA (13:32)
[2024-05-25 14:47] LABS: Appearance Urine Cloudy (Clear); Bacteria Urine Automated 4+ (None Seen); Bilirubin Urine Negative (Negative); Blood Urine 1+ (Negative); Color Urine Yellow; Epithelial Cell Urine Auto 0-2 /hpf (0-2); Glucose Urine UA 2+ (Negative); Ketones Urine Negative (Negative); Leukocyte Esterase Urine 2+ (Negative); Nitrite Urine Positive (Negative); Protein Urine 1+ (Negative); RBC Urine Automated 0-2 /hpf (0-2); Specific Gravity Urine 1.032 (1.000-1.030); Urobilinogen Urine Negative (Negative); WBC Urine Automated >50 /hpf (0-5)
[2024-05-25 15:20] LABS: BUN Creatinine Ratio 20.5 (10-20); Calcium 8.4 mg/dl (8.6-10.3); Creatinine Clr Calc Pharmacy 34.5 ml/min; Potassium 4.4 mmol/L (3.5-5.1)
[2024-05-25] MEDS: cefTRIAXone SODIUM 2,000 MG/50 ML BAG IV STA (15:49)
--- NOTE | 2024-05-25 16:38 | History & Physical Report ---
Date of Service May 25, 2024 Assessment & Plan (1) UTI (urinary tract infection): Plan: UTI With leukocytosis, infected appearing UA, cystitis radiographically Continue Rocephin Follow urine speciation Coronary artery disease S/p triple CABG with known occluded grafts. Pt reports has stents placed subsequent to this EKG without acute territorial ST changes on admission. No chest pain on admission DSE 08/2023: EF 55-60%. Base to mid septal wall hypokinesis and ST depressions in inferior leads occurred with exertion. Overall felt to be low risk Continue Plavix, amlodipine, Imdur, metoprolol. Losartan held for mild JOBY resume once renal function is at baseline Continue statin - No SERENITY. No hypoxia although some mild CHF radiographically and basilar crackles present. - Lasix given in ER. Defer additional to clinical re-evaluation. No risk of intravascular contraction given diarrhea, poor intake, and Cr rise DM2 Hyperglycemic on admission. S/p IV insulin 4 units x 2 Home regimen NPH 46 units, RR 31 units before breakfast. Was trialing are 31 units before dinner and NPH 46 units a p.m. Will switch to basal bolus based on estimated total daily dose of approximately 104 units. Goal BSG 129332 Last A1c 05/22/2023 9.9%, poorly controlled Tremor/gait disorder Continued on primidone Mixed tremor/resting/postural tremor. Had some response to primidone and is continued on this. No indication on prior examinations of parkinsonian disease. 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 Has had intermittent abdominal pain and 6-7 bowel movements per day. On ER provider assessment she is found to have a leukocytosis of 11.6, is hyponatremic at 127, has a mild JOBY with creatinine 1.22, is hypomagnesemic, and has an infected appearing UA. CTA/P with contrast shows bladder wall thickening consistent with UTI, bilateral perinephric stranding consistent with UTI, cardiomegaly with interstitial pulmonary edema and small pleural effusions, and cirrhotic morphology of the liver. Is recommended for admission for UTI without prior culture results available. 1 week of fatigue, weakness, and diarrhea. BSG has been very high. Chills for the last week, shaking chills covering with blankets No chest pain or chest pressure Denies shortness of breath except for going for a walk today when she was mostly very tired Denies orthopnea. Dyspnea improves with rest. Has a hx of heart failure due to triple bipass, but feels her fluid levels are mostly close to normal. 10 years since her last CHF exacerbation (2010) per pt. Did have 2 stents after that but reports she hasn't really had problems with fluid since. Medical History: Reviewed Medications: Reviewed Surgical History: Reviewed Family history: Reviewed Allergies: Reviewed Social History: No tobacco/etoh Code Status: DNR/DNI Allergies Allergy/AdvReac Type Severity Reaction Status Date / Time lisinopril Allergy Intermediate Cough Verified 05/12/24 14:17 isosorbide AdvReac Headache Verified 05/12/24 14:17 Home Medications Medication Instructions Recorded Confirmed Type anastrozole 1 mg tablet 1 mg PO QAM 11/08/18 05/25/24 History coenzyme Q10 200 mg capsule 200 mg PO QAM 01/06/20 05/25/24 History lancets 33 gauge (OneTouch Delica 02/09/20 05/12/24 History Plus Lancet) blood-glucose meter (OneTouch #1 ea 07/29/20 05/12/24 Rx Verio Meter) choline [id number] 1 tab PO QAM 08/27/20 05/25/24 History tablet vit C 250 mg-vit E 90 mg-zinc 40 1 tab PO BID 09/26/21 05/25/24 History mg-copper 1 [id number] capsule (PreserVision AREDS-2) Spacer for Inhaler #1 ea 09/27/21 05/12/24 Rx blood-glucose meter (OneTouch #1 ea 03/24/22 05/12/24 Rx Verio Flex Meter) prevagen 1 tab PO DAILY 05/29/22 05/25/24 History clopidogrel 75 mg tablet 75 mg PO DAILY #90 tabs 05/08/23 05/25/24 Rx losartan 50 mg tablet 50 mg PO QAM #90 tabs 05/08/23 05/25/24 Rx insulin NPH isoph U-100 human 100 See Rx Instructions subcut 05/23/23 05/25/24 Rx unit/mL (3 mL) subcutaneous pen .COMPLEX 90 days #90 mL (Novolin N FlexPen) insulin regular human 100 unit/mL 30 unit (0.3 mL) subcut BID 90 05/23/23 05/25/24 Rx (3 mL) subcutaneous pen (Novolin R days #60 mL FlexPen) pen needle, diabetic 32 gauge x #400 ea 05/23/23 05/12/24 Rx 5/32" (BD Ultra-Fine Suzette Pen Needle) metoprolol tartrate 50 mg tablet 50 mg PO BID #180 tabs 05/31/23 05/25/24 Rx (Lopressor) ipratropium 0.5 mg-albuterol 3 mg 3 ml inhalation Q4H PRN wheezing 07/10/23 05/25/24 Rx (2.5 mg base)/3 mL nebulization #180 mL soln nebulizer and compressor #1 ea 07/10/23 05/12/24 Rx OneTouch Verio test strips (blood #300 ea 07/30/23 05/12/24 Rx sugar diagnostic) budesonide 0.5 mg/2 mL suspension 0.5 mg (2 mL) inhalation BID #60 mL 07/30/23 05/25/24 Rx for nebulization alendronate 70 mg tablet 70 mg PO .COMPLEX #5 tabs 12/19/23 05/25/24 Rx cyanocobalamin (vitamin B-12) 1,000 mcg PO .3XWK 12/19/23 05/25/24 History 2,500 mcg tablet atorvastatin 80 mg tablet 80 mg PO QPM #90 tabs 01/08/24 05/25/24 Rx nitroglycerin 0.4 mg sublingual 0.4 mg sublingual Q5M PRN chest 01/08/24 05/25/24 Rx tablet (Nitrostat) pain #25 tabs albuterol sulfate 90 mcg/actuation 2 puff inhalation Q6H PRN Wheezing 01/17/24 05/25/24 Rx aerosol inhaler #18 grams metformin 1,000 mg tablet 1,000 mg PO BID #180 tabs 01/21/24 05/25/24 Rx fluoxetine 20 mg capsule (Prozac) 20 mg PO QAM #90 caps 04/24/24 05/25/24 Rx primidone 50 mg tablet (Mysoline) 100 mg (2 x 50 mg) PO BID 90 days 05/06/24 05/25/24 Rx #360 tabs amlodipine 5 mg tablet 5 mg PO QAM #90 tabs 05/07/24 05/25/24 Rx Past Med/Surg History Problem List (Updated 05/25/24 @ 16:51 by Xu Kim MD) UTI (urinary tract infection) Diarrhea (Acute) Generalized weakness (Acute) Gait disorder Allergic rhinitis Overweight (BMI 25.0-29.9) Abnormal PFT Dyspnea on exertion Solitary pulmonary nodule Wheeze Postmenopausal estrogen deficiency Sore throat Congestion of nasal sinus Cough Headache Bacterial sinusitis Sensorineural hearing loss of both ears Diabetic nephropathy associated with type 2 diabetes mellitus Uncontrolled type 2 diabetes mellitus with hyperglycemia, with long-term current use of insulin Seborrheic keratoses Abrasion, right lower leg, initial encounter Subacromial bursitis Rotator cuff tendinitis Toe fracture Glenohumeral arthritis Toe swelling Left shoulder pain CAD (coronary artery disease) (Chronic) 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) Tremor (Chronic) Osteopenia (Acute) Obesity (Acute) Hypertension (Chronic) Dyslipidemia (Chronic) Depression (Chronic) Breast cancer (Chronic 07/2017) left breast infiltrating ductal CA dx 07/2017 (ER+/MS+, Her 2 -) and right breast invasive ductal CA dx 11/2017 (ER+/MS+, Her 2 +), s/p elective B/L mastectomy with right axillary dissection (0/7 nodes +), on Arimedex since Jan 2018 Arthralgia of multiple sites (Acute) Arteriosclerotic cardiovascular disease (Acute) Chronic kidney disease Type 2 diabetes mellitus treated with insulin (Chronic) 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 Sinusitis Parkinsonism Anemia (Chronic) Tremor of both hands (Chronic) Internal hemorrhoid (Chronic) Gait instability (Chronic) Hypercalcemia Hypomagnesemia Hypophosphatemia Medical History Arthritis Hx of breast cancer Anxiety Neuropathy Myocardial Infarction History of COVID-19 Thrombocytopenia DM type 2 (diabetes mellitus, type 2) CAD (coronary artery disease) Tremor Hypertension Hyperlipidemia Unstable angina (03/16/14) Surgical History H/O bilateral mastectomy H/O lumpectomy History of tooth extraction History of surgery History of colonoscopy History of trigger finger History of open reduction and internal fixation (ORIF) procedure History of cataract surgery History of cardiac cath History of coronary artery bypass graft Family History Sister Breast cancer Father Alcoholism Mother Heart disease Uncle Heart disease Daughter Family history of diabetes mellitus Other No family history of adverse response to anesthesia Denies family history of Ovarian cancer Prostate cancer Myocardial infarction Colorectal cancer Social History Smoking Status: Former smoker Tobacco Type: Cigarettes Age Started Using Tobacco: 13; Age Quit Using Tobacco: 43; packs per day: 0.75; Second Hand Exposure: Yes ( A CHILD); Do You Dip or Chew Tobacco: No; Hx Alcohol Use: No Hx Substance Use: No Preferred Language: Nigerien Communication Ability: Effective Visual Impairment: No Limitations Hearing Ability: Normal Section Cutter Required: No Beliefs That Will Affect Care: None marital status: Current Living Situation: Spouse current occupational status: retired 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 NAD. Cooperative. HEENT: Atraumatic, normocephalic. Pulm: Diminished, trace basilar crackles. Symmetrical chest rise. No increased work of breathing. No respiratory distress. Cardiac: RRR, -mrg. Radial pulses intact and symmetrical. Abdominal: Nontender, nondistended, soft. BS present. Ext: no edema Results & Data Results & Data Vital Signs (Past 12 Hours) Vital Signs Temp Pulse Pulse Resp BP BP Pulse Ox 05/25/24 14:42 74 30 H 05/25/24 14:35 119/64 05/25/24 14:27 70 28 H 95 05/25/24 14:00 71 27 H 96 05/25/24 14:00 110/88 05/25/24 13:34 72 18 137/64 97 05/25/24 13:31 137/64 05/25/24 13:30 70 25 H 05/25/24 13:00 139/70 05/25/24 13:00 73 21 97 05/25/24 12:30 71 26 H 96 05/25/24 12:30 111/73 05/25/24 12:00 151/83 H 05/25/24 11:58 77 22 141/87 H 97 05/25/24 11:56 141/87 H 05/25/24 11:54 73 21 95 05/25/24 11:54 74 05/25/24 11:12 67 20 92 05/25/24 10:45 67 13 97 05/25/24 10:02 36.9 C 76 18 122/65 98 O2 Del Method 05/25/24 14:42 05/25/24 14:35 05/25/24 14:27 05/25/24 14:00 05/25/24 14:00 05/25/24 13:34 Room Air 05/25/24 13:31 05/25/24 13:30 05/25/24 13:00 05/25/24 13:00 05/25/24 12:30 05/25/24 12:30 05/25/24 12:00 05/25/24 11:58 Room Air 05/25/24 11:56 05/25/24 11:54 05/25/24 11:54 05/25/24 11:12 05/25/24 10:45 05/25/24 10:02 Room Air PG Care Time/CCT Total # of Minutes Spent Total Time Spent with Patient: Total time spent is greater than 50% in coordination of care (as documented) at patient's floor/unit and/or counseling patient: Coding Level of Care Code 04227 INT INP/OBS CARE 3/75MIN Diagnoses UTI (urinary tract infection) N39.0 Uncontrolled type 2 diabetes mellitus with hyperglycemia, with long-term current use of insulin E11.65; Z79.4 CAD (coronary artery disease) I25.10 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
--- NOTE | 2024-05-25 16:47 | XRay Report ---
Clinical History: Shortness of breath Technique: A frontal view of the chest was obtained Comparison is made to the prior examination dated 03/24/2024 Findings: There is worsened diffuse interstitial prominence, most likely due to pulmonary edema. The heart size is at the upper limit of normal. No pleural effusion or pneumothorax is seen. No fracture is noted. Sternal wires are present Impression: Diffuse interstitial prominence, most likely due to pulmonary edema Electronically signed by Luis Pyle 05-25-2024 4:46 PM
[2024-05-25] MEDS ORDERED: POLYETHYLENE (MIRALAX) 17 GM PACK PO PRN (17:17)
[2024-05-25] MEDS: FUROSEMIDE 40 MG/4 ML VIAL IV ONE (17:19)
[2024-05-25] MEDS ORDERED: GLUCOSE 40% GEL 15 GM TUBE PO PRN (19:17)
[2024-05-25] MEDS ORDERED: ALBUTEROL HFA 8 GM INHALER INH PRN (19:17)
[2024-05-25] MEDS ORDERED: ALBUT/IPRATROP 3MG/0.5MG NEB 3 ML VIAL INH PRN (19:17)
[2024-05-25] MEDS ORDERED: GLUCOSE 10 TAB/TUBE PO PRN (19:17)
[2024-05-25] MEDS ORDERED: CARBOHYDRATES FOR HYPOGLYCEMIA PO PRN (19:17)
[2024-05-25] MEDS ORDERED: DEXTROSE 50% 50 ML SYRINGE IV PRN (19:17)
[2024-05-25] MEDS ORDERED: GLUCAGON FOR INJ 1 MG VIAL SQ PRN (19:17)
[2024-05-25] MEDS: ATORVASTATIN 40 MG TAB PO SCH (20:38)
[2024-05-25] MEDS: METOPROLOL TARTRATE 50 MG TAB PO SCH (20:38)
[2024-05-25] MEDS: PRIMIDONE 50 MG TAB PO SCH (20:38)
[2024-05-25] MEDS: HEPARIN SOD 5,000 UNIT/0.5 ML VIAL SQ SCH (20:41)
[2024-05-25] MEDS: INSULIN ASPART PER UNIT CHARGE SC SCH (20:41)
[2024-05-25] MEDS: LANTUS PER UNIT CHARGE SQ SCH (20:42)
[2024-05-25] MEDS: BUDESONIDE 0.5 MG/2 ML VIAL (PULMICORT) INH SCH (21:47)
[2024-05-26] MEDS: ACETAMINOPHEN 325 MG TAB PO PRN (05:30)
[2024-05-26 08:36] LABS: Basophils # (auto) 0.02 K/uL (0.00-0.20); Basophils % (auto) 0.2 %; Eosinophils # (auto) 0.05 K/uL (0.00-0.50); Eosinophils % (auto) 0.4 %; Hematocrit (blood only) 29.4 % (37.0-47.0); Hemoglobin 10.2 g/dl (12.0-16.0); Immature Granulocytes # (auto) 0.05 K/uL (0.01-0.20); Immature Granulocytes % (auto) 0.4 %; Lymphocytes # (auto) 1.24 K/uL (1.20-3.40); Lymphocytes % (auto) 10.1 %; Mean Corpuscular Hgb Conc 34.7 g/dL (32.0-36.0); Mean Corpuscular Volume 83.5 fL (80.0-100.0); Mean Platelet Volume 10.5 fL (9.4-12.4); Monocytes # (auto) 0.64 K/uL (0.11-0.59); Monocytes % (auto) 5.2 %; Neutrophils # (auto) 10.24 K/uL (1.40-6.50); Neutrophils % (auto) 83.7 %; Platelet Count 304 K/uL (130-400); RDW Coefficient of Variation 13.3 % (11.5-14.5); RDW Standard Deviation 40.9 fL (36.4-46.3); Red Blood Count 3.52 M/uL (4.20-5.40); White Blood Count 12.24 K/ul (4.8-10.8)
[2024-05-26 08:54] LABS: BUN Creatinine Ratio 19.5 (10-20); Creatinine Clr Calc Pharmacy 36.5 ml/min; Magnesium 1.8 mg/dl (1.7-2.4)
[2024-05-26] MEDS: CLOPIDOGREL BISULFATE 75 MG TAB PO SCH (09:03)
[2024-05-26] MEDS: amLODIPine BESYLATE 5 MG TAB PO SCH (09:03)
[2024-05-26] MEDS: ANASTROZOLE 1 MG TAB PO SCH (09:03)
[2024-05-26] MEDS: FLUoxetine HCL 20 MG CAP PO SCH (09:03)
[2024-05-26 09:35] LABS: Estimated Average Glucose 246 mg/dl; Hemoglobin A1C 10.2 % (4.5-5.6)
--- NOTE | 2024-05-26 13:02 | Hospitalist Progress Note ---
Date of Service May 26, 2024 Assessment & Plan (1) UTI (urinary tract infection): Plan: UTI With leukocytosis, infected appearing UA, cystitis radiographically Continue Rocephin UCx positive for E. coli, sensitivities remain pending. Coronary artery disease S/p triple CABG with known occluded grafts. Pt reports has stents placed subsequent to this EKG without acute territorial ST changes on admission. No chest pain on admission DSE 08/2023: EF 55-60%. Base to mid septal wall hypokinesis and ST depressions in inferior leads occurred with exertion. Overall felt to be low risk Continue Plavix, amlodipine, Imdur, metoprolol. Losartan held for mild JOBY resume once renal function is at baseline Continue statin - No SERENITY. No hypoxia although some mild CHF radiographically and basilar crackles present. -Appears relatively euvolemic /. No lower extremity edema, lungs are slightly diminished but clear. Breathing is unlabored without dyspnea patient was able to walk the halls without shortness of breath. P.o. encouraged, diuresis deferred. DM2 Hyperglycemic on admission. S/p IV insulin 4 units x 2 Continue basal bolus. Blood sugars above goal today, coverage tightened Goal BSG [id number] Last A1c 05/22/2023 9.9%, poorly controlled Repeat A1c remains poorly controlled. Will need updated insulin recommendations on discharge Tremor/gait disorder Continued on primidone Mixed tremor/resting/postural tremor. Had some response to primidone and is continued on this. No indication on prior examinations of parkinsonian disease. 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 Diarrhea improved, no further diarrhea today. Still feels weak and tired. No dysuria. Denies cough, shortness of breath, congestion. Denies chest pain chest pressure. Physical Exam Physical Exam: General: A&Ox3. NAD. Cooperative. HEENT: Atraumatic, normocephalic. Pulm: Clear. Symmetrical chest rise. No increased work of breathing. No respiratory distress. Cardiac: RRR, -mrg. Radial pulses intact and symmetrical. Abdominal: Nontender, nondistended, soft. BS present. Ext: no edema Results & Data Results & Data Vital Signs (Past 12 Hours) Vital Signs Temp Pulse Pulse Resp BP BP Pulse Ox 05/26/24 10:49 36.7 C 71 16 164/88 H 95 05/26/24 08:30 05/26/24 07:48 36.7 C 79 16 164/88 H 95 05/26/24 07:28 84 05/26/24 06:15 80 16 96 05/26/24 02:57 36.7 C 81 18 144/77 H 94 O2 Del Method 05/26/24 10:49 Room Air 05/26/24 08:30 Room Air 05/26/24 07:48 Room Air 05/26/24 07:28 05/26/24 06:15 Room Air 05/26/24 02:57 Room Air PG Care Time/CCT Total # of Minutes Spent Total Time Spent with Patient: Total time spent is greater than 50% in coordination of care (as documented) at patient's floor/unit and/or counseling patient: Coding Level of Care Code 72232 SUB INP/OBS CARE 350MIN Diagnoses UTI (urinary tract infection) N39.0 Uncontrolled type 2 diabetes mellitus with hyperglycemia, with long-term current use of insulin E11.65; Z79.4 CAD (coronary artery disease) I25.10 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
[2024-05-26] MEDS ORDERED: PHARMACY GLYCEMIC MGMT CONSULT PRN (13:03)
--- NOTE | 2024-05-26 13:26 | Pharmacy Report ---
Pharmacy Glycemic Short Note 2 - Date of Service May 26, 2024 - Glycemic Short BSG Results (Last 24 hours): 05/25/24 05/25/24 05/25/24 14:45 16:02 19:33 Glucose 331 H* POC Glucose 313 H* 312 H* 05/26/24 05/26/24 05/26/24 08:07 08:22 12:11 Glucose 256 H POC Glucose 254 H 285 H OUTPATIENT ANTIDIABETIC REGIMEN: * NPH 48 units SC AM + 44 units SC PM * Regular insulins 30 units SC BID * Metformin 1000 mg PO BID HbA1c: * 10.2% (05/26/24) ASSESSMENT: * 78 yo F admitted on 05/25/24 secondary to UTI. Pharmacy has been consulted to assist with inpatient glycemic management. Patient is a Type 2 diabetic as an outpatient. Please refer to outpatient regimen and most recent HbA1c above. * Received 25 units of basal last night in addition to 23 units total of bolus insulin. BSGs high: 348-313-312 mg/dL. * Fasting BSG was 254 mg/dL this AM. Given another 25 of basal this morning. Pharmacy consulted after lunchtime today when BSG was 285 mg/dL. * Will tighten goal range to 110-140 mg/dL hoping that this keeps most BSGs below 180 mg/dL. Will increase basal to near home dose with reasoning being outpatient A1c uncontrolled on home dose. Also tightening correction factor and carb ratio. PLAN FOR INPATIENT GLYCEMIC CONTROL: * Hold outpatient oral diabetes medications * Basal insulin * Lantus 25 units SC x 1 this AM * Lantus 40 units SC BID starting this PM * Bolus insulin * NovoLog per scale ACHS or Q6hrs while NPO * Goal Range: Low 110 mg/dL - High 140 mg/dL * Correction Factor: 12 mg/dL/unit * Nutritional / Prandial insulin per carb ratio of 1 unit per 3 grams CHO consumed
[2024-05-26] MEDS: cefTRIAXone SODIUM 2,000 MG/50 ML BAG IV SCH (16:07)
[2024-05-26] MEDS: LANTUS PER UNIT CHARGE SQ SCH (21:33)
[2024-05-26] MEDS: ONDANSETRON INJ 2 MG/ML 2 ML VIAL IV PRN (21:34)
[2024-05-27] MEDS: INSULIN ASPART PER UNIT CHARGE SC SCH (00:11)
[2024-05-27 00:20] VITALS: TEMP 98.1
[2024-05-27 07:25] VITALS: BP 157/79
[2024-05-27 07:45] VITALS: RESP 15; O2SAT 93
[2024-05-27] MEDS: OPTIRAY 320 100ml IV ONE (08:46)
[2024-05-27] MEDS: LANTUS PER UNIT CHARGE SQ SCH (09:04)
[2024-05-27 12:13] VITALS: PULSE 81
--- NOTE | 2024-05-27 12:19 | Discharge Summary ---
Discharge Summary Date of Service May 27, 2024 Principal Dx & Hospital Course #1 = Principal Diagnosis (1) UTI (urinary tract infection): Yumiko is an 78-year-old female who presented with acute UTI and hyperglycemia. Hypoglycemia resolved with inpatient glycemic control but A1c recently 9.9 suggesting poor recent control. Her UTI resolved with antibiotics and her strength greatly improved. She is seen by PT who recommended discharge home. She was provided with a home PT prescription at time of discharge. She does have a history of coronary disease and triple CABG however had no chest pain at or during admission, and was euvolemic during admission and on discharge. Diuresis was not required during admission. To do as outpatient: 1. Complete 5-day course of antibiotics with cefpodoxime 200 mg p.o. twice daily 2. Outpatient physical therapy 3. 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 Has had intermittent abdominal pain and 6-7 bowel movements per day. On ER provider assessment she is found to have a leukocytosis of 11.6, is hyponatremic at 127, has a mild JOBY with creatinine 1.22, is hypomagnesemic, and has an infected appearing UA. CTA/P with contrast shows bladder wall thickening consistent with UTI, bilateral perinephric stranding consistent with UTI, cardiomegaly with interstitial pulmonary edema and small pleural effusions, and cirrhotic morphology of the liver. Is recommended for admission for UTI without prior culture results available. 1 week of fatigue, weakness, and diarrhea. BSG has been very high. Chills for the last week, shaking chills covering with blankets No chest pain or chest pressure Denies shortness of breath except for going for a walk today when she was mostly very tired Denies orthopnea. Dyspnea improves with rest. Has a hx of heart failure due to triple bipass, but feels her fluid levels are mostly close to normal. 10 years since her last CHF exacerbation (2010) per pt. Did have 2 stents after that but reports she hasn't really had problems with fluid since. Medical History: Reviewed Medications: Reviewed Surgical History: Reviewed Family history: Reviewed Allergies: Reviewed Social History: No tobacco/etoh Code Status: DNR/DNI Discharge Exam General: A&Ox3. NAD. Cooperative. HEENT: Atraumatic, normocephalic. Pulm: CTAB A&P. -wheezes, -rales, -rhonchi. Symmetrical chest rise. No increase in work of breathing. No respiratory distress. Cardiac: RRR, soft SM. Radial pulses intact and symmetrical. Abdominal: Nontender, nondistended, soft. BS present. Discharge Plan Discharge Items Patient Disposition: Home - Self-Care Reason For Visit: UTI, ? CHF Discharge Diagnosis: UTI Activity: Resume your previous activity Non-emergency contact: Primary Care Provider Call non-emergency contact if: you have any medication questions, your symptoms worsen and your pain is not controlled Follow-up/Referrals: Harry Lozano PA-C [Physician Customs Brokerage Agent] - () Bashir Melgar DO [Primary Care Provider] - 06/12/24 9:00 am Diet: Regular Addtl Attending Provider Instructions: You were seen in the hospital for a UTI and low sodium. Your low sodium was improving and near normal day of discharge. Your urine culture showed a UTI with E coli, a common bacteria. You have been prescribed antibiotics as below. Please take cefpodoxime 200mg twice daily by mouth for 3 more days. You can take your first dose of this medication in the morning on 05/28. This is an antibiotic for your UTI. Your blood sugar has been poorly controlled. You had good control in the hospital using a combination of short acting and long acting insulin. Your A1C is still elevated above goal, indicating that while your blood sugar was acutely worse in the hospital due to your infection you also need better fpc control. An appointment with your disease education specialist is being scheduled. If you develop any new or worsening symptoms including fever, chills, sweats, chest pain, chest pressure, difficulty breathing, uncontrolled nausea/vomiting, rash, wheezing, passing out or nearly passing out, bleeding, black/bloody bowel movements, or other new or concerning symptoms please call your primary care physician, or call 911 for re-evaluation in the emergency department if you are very concerned. Pending Studies at Discharge: No Stand-Alone Forms: My [facility], Smoking Cessation Medications and DC Order Prescriptions: New cefpodoxime 200 mg tablet 200 mg PO BID 3 Days Qty: 6 0RF Rx Instructions: must administer with a meal/food Continued (DME) blood-glucose meter [OneTouch Verio Meter] [facility] [place] Rx Instructions .ROUTE .MEDSUPPLY Qty: 1 0RF Rx Instructions: Test blood sugar two times daily clopidogrel 75 mg tablet 75 mg PO DAILY Qty: 90 3RF losartan 50 mg tablet 50 mg PO QAM Qty: 90 3RF metoprolol tartrate [Lopressor] 50 mg tablet 50 mg PO BID Qty: 180 3RF (DME) OneTouch Verio test strips Strip See Rx Instructions .ROUTE .MEDSUPPLY Qty: 300 3RF Dose Instruction: As directed Rx Instructions: test blood sugar three times a day albuterol sulfate 90 mcg/actuation HFA aerosol inhaler 2 puff INHALATION Q6H PRN (Reason: Wheezing) Qty: 18 3RF metformin 1,000 mg tablet 1,000 mg PO BID Qty: 180 3RF fluoxetine [Prozac] 20 mg capsule 20 mg PO QAM Qty: 90 3RF amlodipine 5 mg tablet 5 mg PO QAM Qty: 90 3RF Patient Comments: TAKES 7.5MG QAM prevagen 1 tab PO DAILY (DME) blood-glucose meter [OneTouch Verio Flex meter] [facility] [place] See Rx Instructions .ROUTE .MEDSUPPLY Qty: 1 0RF Rx Instructions: As directed (DME) lancets [OneTouch Delica Plus Lancet] [facility] See Rx Instructions .ROUTE .MEDSUPPLY Dose Instruction: As directed Rx Instructions: test blood sugar 2 x daily choline [id number] Tablet 1 tab PO QAM Patient Comments: prevegen anastrozole 1 mg tablet 1 mg PO QAM coenzyme Q10 200 mg capsule 200 mg PO QAM Novolin N FlexPen 100 unit/mL (3 mL) insulin pen See Rx Instructions subcut .COMPLEX 90 Days Qty: 90 3RF Rx Instructions: 48 unit in AM; 44 units PM subcutaneously; Novolin R FlexPen 100 unit/mL (3 mL) insulin pen 30 unit subcut BID 90 Days Qty: 60 2RF (DME) pen needle, diabetic [BD Ultra-Fine Suzette Pen Needle] 32 gauge x 5/32" needle See Dose Instructions .ROUTE .MEDSUPPLY Qty: 400 3RF Rx Instructions: use 4 daily budesonide 0.5 mg/2 mL suspension for nebulization 0.5 mg inhalation BID Qty: 60 1RF cyanocobalamin (vitamin B-12) 2,500 mcg tablet 1,000 mcg PO .3XWK Rx Instructions: 1,000 mcg orally 3x per week; atorvastatin 80 mg tablet 80 mg PO QPM Qty: 90 3RF nitroglycerin [Nitrostat] 0.4 mg tablet, sublingual 0.4 mg Sublingual Q5M PRN (Reason: chest pain) Qty: 25 5RF Rx Instructions: PLACE 1 TAB UNDER TONGUE Q5M FOR UP TO 3 DOSES PRN CHEST PAIN. CALL 911 IF PAIN PERSISTS (DME) nebulizer and compressor Device See Rx Instructions .ROUTE .MEDSUPPLY Qty: 1 0RF Rx Instructions: As directed ipratropium-albuterol 0.5 mg-3 mg(2.5 mg base)/3 mL solution for nebulization 3 ml inhalation Q4H PRN (Reason: wheezing) Qty: 180 1RF primidone [Mysoline] 50 mg tablet 100 mg PO BID 90 Days Qty: 360 1RF alendronate 70 mg tablet 70 mg PO .COMPLEX Qty: 5 11RF Rx Instructions: 70 mg orally once weekly; PreserVision AREDS-2 250-90-40-1 mg Capsule 1 tab PO BID (DME) Spacer for Inhaler Misc See Rx Instructions .Route Qty: 1 0RF Rx Instructions: Use with albuterol inhaler as needed every 2 hours for wheezing. Discharge Orders: Discharge Order (Routine); Ordered 05/27/24 Ordered By: Xu Kim Admission Data Admit Date/Time: 05/25/24 17:19 Attending Provider: Xu Kim Admit Provider: Xu Kim Primary Care Provider: Bashir Melgar Other Providers: Xu Kim Other Interventions: Discharge Summary Assessment (RN) Last Done: 05/27/24 12:12 Hospital Stay Data Consultations 05/25/24 16:43 ED Decision to Admit Stat Diagnostic Imagining Performed 05/25/24 12:13 CT abd pelvis IV con only Stat Pending Results Patient Have Any Pending Studies at Discharge: No Discharge Instructions Given to Patient (Per Discharging Provider) You were seen in the hospital for a UTI and low sodium. Your low sodium was improving and near normal day of discharge. Your urine culture showed a UTI with E coli, a common bacteria. You have been prescribed antibiotics as below. Please take cefpodoxime 200mg twice daily by mouth for 3 more days. You can take your first dose of this medication in the morning on 05/28. This is an antibiotic for your UTI. Your blood sugar has been poorly controlled. You had good control in the hospital using a combination of short acting and long acting insulin. Your A1C is still elevated above goal, indicating that while your blood sugar was acutely worse in the hospital due to your infection you also need better tip stitcher control. An appointment with your disease education specialist is being scheduled. If you develop any new or worsening symptoms including fever, chills, sweats, chest pain, chest pressure, difficulty breathing, uncontrolled nausea/vomiting, rash, wheezing, passing out or nearly passing out, bleeding, black/bloody bowel movements, or other new or concerning symptoms please call your primary care physician, or call 911 for re-evaluation in the emergency department if you are very concerned. Total Time Total Time Spent Total Time Spent (In Minutes): Time spend day of discharge 35 minutes including direct patient care, documentation, review of labs and images, and coordination of care. 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
--- NOTE | 2024-05-28 16:44 | Electrocardiogram Report ---
Test Reason : Blood Pressure : */* mmHG Vent. Rate : 73 BPM Atrial Rate : 73 BPM P-R Int : 154 ms QRS Dur : 74 ms QT Int : 420 ms P-R-T Axes : 37 9 129 degrees QTcB Int : 462 ms Normal sinus rhythm Abnormal ECG When compared with ECG of 26-Sep-2021 22:59, Minimal criteria for Anteroseptal infarct are no longer Present T wave inversion more evident in Anterior leads Confirmed by Alfredo August ([id number]) on 05/28/2024 4:43:52 PM Referred By: REFERRED SELF Confirmed By: Alfredo August
== END 2024-05-27 12:13 | disposition home or self-care (01) ==
LOC: ED 10:00 → INTOOBSV 17:19 → 2W 17:19

== ENCOUNTER 2024-05-31 14:00 | Inpatient (IN) ==
[2024-05-31] MEDS: NITROGLYCERIN SL 0.4 MG/TAB TAB SL PRN (14:20)
[2024-05-31] MEDS: ASPIRIN CHEW 324 MG ONE (14:22)
[2024-05-31] MEDS: ASPIRIN CHEW 324 MG PO STA (14:22)
[2024-05-31] MEDS: NITROGLYCERIN SL 0.4 MG/TAB TAB ONE (14:22)
[2024-05-31 14:23] LABS: HCO3 VBG 23 mmol/L; Oxygen Saturation VBG 80.9 %; PCO2 VBG 55 mmHg (38-50); PO2 VBG 53 mmHg; pH VBG 7.23 (7.36-7.41)
[2024-05-31] MEDS: NITROGLYCERIN 2% OINTMENT 30GM TUBE EXT ONE ×2 (14:25)
[2024-05-31 14:34] LABS: Basophils # (auto) 0.08 K/uL (0.00-0.20); Basophils % (auto) 0.4 %; Eosinophils # (auto) 0.27 K/uL (0.00-0.50); Eosinophils % (auto) 1.4 %; Hematocrit (blood only) 33.7 % (37.0-47.0); Immature Granulocytes # (auto) 0.16 K/uL (0.01-0.20); Immature Granulocytes % (auto) 0.8 %; Lymphocytes % (auto) 12.6 %; Mean Corpuscular Hemoglobin 28.9 pg (25.0-34.0); Mean Corpuscular Hgb Conc 32.6 g/dL (32.0-36.0); Mean Corpuscular Volume 88.7 fL (80.0-100.0); Mean Platelet Volume 9.7 fL (9.4-12.4); Monocytes # (auto) 0.95 K/uL (0.11-0.59); Monocytes % (auto) 4.8 %; Neutrophils # (auto) 15.89 K/uL (1.40-6.50); Platelet Count 609 K/uL (130-400); RDW Coefficient of Variation 14.1 % (11.5-14.5); RDW Standard Deviation 45.1 fL (36.4-46.3); White Blood Count 19.85 K/ul (4.8-10.8)
--- NOTE | 2024-05-31 14:35 | XRay Report ---
HISTORY: Chest pain. Shortness of breath. TECHNIQUE: Portable AP radiograph of the chest. COMPARISON: Chest radiograph dated 05/25/2024. FINDINGS: Small effusions. Pulmonary vascular congestion. Mild pulmonary edema. No pneumothorax. Cardiomegaly. Postsurgical changes of median sternotomy and CABG. Left-sided aortic arch. Midline trachea. Degenerative changes of the shoulders. Included upper abdomen is unremarkable. IMPRESSION: Findings of CHF with cardiomegaly, trace effusions, vascular congestion, and mild interstitial pulmonary edema. Electronically signed by Zak Burger 05-31-2024 2:35 PM
[2024-05-31 14:44] LABS: Anion Gap 9 (3-11); BUN Creatinine Ratio 16.8 (10-20); Blood Urea Nitrogen 17 mg/dl (6-23); Carbon Dioxide 24 mmol/L (21-32); Chloride 99 mmol/L (98-107); Glucose 283 mg/dl (70-99(Fasting)); Lipase 51 U/L (11-82); Potassium 5.3 mmol/L (3.5-5.1); Sodium 132 mmol/L (136-145)
[2024-05-31 14:59] LABS: Troponin I High Sensitivity 166.7 pg/ml (0-14)
[2024-05-31] MEDS: FUROSEMIDE 40 MG/4 ML VIAL IV ONE (15:07)
[2024-05-31] MEDS ORDERED: NITROGLYCERIN SL 0.4 MG/TAB TAB SL PRN (15:20)
[2024-05-31] MEDS ORDERED: ALBUT/IPRATROP 3MG/0.5MG NEB 3 ML VIAL INH PRN (15:20)
[2024-05-31] MEDS ORDERED: GLUCAGON FOR INJ 1 MG VIAL SQ PRN (15:25)
[2024-05-31] MEDS ORDERED: GLUCOSE 10 TAB/TUBE PO PRN (15:25)
[2024-05-31] MEDS ORDERED: GLUCOSE 40% GEL 15 GM TUBE PO PRN (15:25)
[2024-05-31] MEDS ORDERED: ACETAMINOPHEN 325 MG TAB PO PRN (15:25)
[2024-05-31] MEDS ORDERED: PHARMACY GLYCEMIC MGMT CONSULT PRN (15:25)
[2024-05-31] MEDS ORDERED: CARBOHYDRATES FOR HYPOGLYCEMIA PO PRN (15:25)
[2024-05-31] MEDS ORDERED: DEXTROSE 50% 50 ML SYRINGE IV PRN (15:25)
[2024-05-31 15:36] LABS: Influenza A virus by PCR Negative (Neg); Influenza B virus by PCR Negative (Neg); RSV by PCR Negative (Neg); SARS CoV2 RNA(COVID-19) Ceph NEGATIVE (Negative)
[2024-05-31] MEDS: HEPARIN 25000 UNIT/500 ML D5W 25,000 UNITS/500 ML BAG IV SCH (16:08)
[2024-05-31] MEDS: HEPARIN SOD (PORCINE) 1000 UNIT/ML IV ONE (16:10)
[2024-05-31] MEDS: Heparin IV Adult Wt-Based Standard w/ INITIAL Bolus Protocol IV STA (16:18)
--- NOTE | 2024-05-31 16:33 | History & Physical Report ---
Date of Service May 31, 2024 Assessment & Plan (1) CHF exacerbation: Plan: -lasix 40 IV BID -bipap -echo -cardiology consulted -BNP >3000 -CXR with pulmonary edema (2) NSTEMI (non-ST elevated myocardial infarction): Plan: -troponin >160 -con't to trend -asa, plavix, metoprolol, atorvastatin -heparin drip (3) Diabetes: Plan: -RISS (4) Hypertension: Plan: -amlodapine -losartan -metoprolol (5) Hyperlipidemia: Plan: -atorvastatin History of Present Illness Chief Complaint: SOB Primary Care Provider: Bashir Melgar DO Pt is an 78 y/o female with pmh of CAD s/p CABG, stents x2, DM, HTN, HLD, anxiety, who presents with 1 day history of SOB that began this am. Patient denies any chest pain, fever, or cough. In the ER her CXR showed CHF with pulmonary vascular congestion. Her EKG showe sinus tachycardia with some lateral ischemia. Her troponin was >166 and BNP > 3000. Pt was given lasix IV and started on bipap in the ER. Her symptoms improved and she was also started on heparin drip. Pt is being admitted for further treatment of CHF exacerbation with NSTEMI. Allergies Allergy/AdvReac Type Severity Reaction Status Date / Time lisinopril Allergy Intermediate Cough Verified 05/31/24 16:23 isosorbide AdvReac Headache Verified 05/31/24 16:23 Home Medications Medication Instructions Recorded Confirmed Type anastrozole 1 mg tablet 1 mg PO QAM 11/08/18 05/31/24 History coenzyme Q10 200 mg capsule 200 mg PO QAM 01/06/20 05/31/24 History lancets 33 gauge (OneTouch Delica 02/09/20 05/12/24 History Plus Lancet) blood-glucose meter (OneTouch #1 ea 07/29/20 05/12/24 Rx Verio Meter) choline [id number] 1 tab PO QAM 08/27/20 05/25/24 History tablet vit C 250 mg-vit E 90 mg-zinc 40 1 tab PO BID 09/26/21 05/31/24 History mg-copper 1 [id number] capsule (PreserVision AREDS-2) Spacer for Inhaler #1 ea 09/27/21 05/12/24 Rx blood-glucose meter (OneTouch #1 ea 03/24/22 05/12/24 Rx Verio Flex Meter) prevagen 1 tab PO DAILY 05/29/22 05/25/24 History insulin NPH isoph U-100 human 100 See Rx Instructions subcut 05/23/23 05/31/24 Rx unit/mL (3 mL) subcutaneous pen .COMPLEX 90 days #90 mL (Novolin N FlexPen) insulin regular human 100 unit/mL 30 unit (0.3 mL) subcut BID 90 05/23/23 05/31/24 Rx (3 mL) subcutaneous pen (Novolin R days #60 mL FlexPen) pen needle, diabetic 32 gauge x #400 ea 05/23/23 05/12/24 Rx 532" (BD Ultra-Fine Suzette Pen Needle) metoprolol tartrate 50 mg tablet 50 mg PO BID #180 tabs 05/31/23 05/31/24 Rx (Lopressor) ipratropium 0.5 mg-albuterol 3 mg 3 ml inhalation Q4H PRN wheezing 07/10/23 05/31/24 Rx (2.5 mg base)/3 mL nebulization #180 mL soln nebulizer and compressor #1 ea 07/10/23 05/12/24 Rx OneTouch Verio test strips (blood #300 ea 07/30/23 05/12/24 Rx sugar diagnostic) budesonide 0.5 mg/2 mL suspension 0.5 mg (2 mL) inhalation BID #60 mL 07/30/23 05/31/24 Rx for nebulization alendronate 70 mg tablet 70 mg PO .COMPLEX #5 tabs 12/19/23 05/31/24 Rx cyanocobalamin (vitamin B-12) 1,000 mcg PO .3XWK 12/19/23 05/31/24 History 2,500 mcg tablet atorvastatin 80 mg tablet 80 mg PO QPM #90 tabs 01/08/24 05/31/24 Rx nitroglycerin 0.4 mg sublingual 0.4 mg sublingual Q5M PRN chest 01/08/24 05/31/24 Rx tablet (Nitrostat) pain #25 tabs albuterol sulfate 90 mcg/actuation 2 puff inhalation Q6H PRN Wheezing 01/17/24 05/31/24 Rx aerosol inhaler #18 grams metformin 1,000 mg tablet 1,000 mg PO BID #180 tabs 01/21/24 05/31/24 Rx fluoxetine 20 mg capsule (Prozac) 20 mg PO QAM #90 caps 04/24/24 05/31/24 Rx primidone 50 mg tablet (Mysoline) 100 mg (2 x 50 mg) PO BID 90 days 05/06/24 05/31/24 Rx #360 tabs amlodipine 5 mg tablet 5 mg PO QAM #90 tabs 05/07/24 05/31/24 Rx clopidogrel 75 mg tablet 75 mg PO DAILY #90 tabs 05/28/24 05/31/24 Rx losartan 50 mg tablet 50 mg PO QAM #90 tabs 05/28/24 05/31/24 Rx Past Med/Surg History Problem List (Updated 05/31/24 @ 16:36 by Syd Adams MD) Diabetes NSTEMI (non-ST elevated myocardial infarction) CHF exacerbation Dyspnea (Acute) Pulmonary edema (Acute) JOBY (acute kidney injury) (Acute) Hypomagnesemia (Acute) UTI (urinary tract infection) Diarrhea (Acute) Generalized weakness (Acute) Gait disorder Allergic rhinitis Overweight (BMI 25.0-29.9) Abnormal PFT Dyspnea on exertion Solitary pulmonary nodule Wheeze Postmenopausal estrogen deficiency Sore throat Congestion of nasal sinus Cough Headache Bacterial sinusitis Sensorineural hearing loss of both ears Diabetic nephropathy associated with type 2 diabetes mellitus Uncontrolled type 2 diabetes mellitus with hyperglycemia, with long-term current use of insulin Seborrheic keratoses Abrasion, right lower leg, initial encounter Subacromial bursitis Rotator cuff tendinitis Toe fracture Glenohumeral arthritis Toe swelling Left shoulder pain CAD (coronary artery disease) (Chronic) 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) Tremor (Chronic) Osteopenia (Acute) Obesity (Acute) Hypertension (Chronic) Dyslipidemia (Chronic) Depression (Chronic) Breast cancer (Chronic 07/2017) left breast infiltrating ductal CA dx 07/2017 (ER+/ME+, Her 2 -) and right breast invasive ductal CA dx 11/2017 (ER+/ME+, Her 2 +), s/p elective B/L mastectomy with right axillary dissection (0/7 nodes +), on Arimedex since Jan 2018 Arthralgia of multiple sites (Acute) Arteriosclerotic cardiovascular disease (Acute) Chronic kidney disease Type 2 diabetes mellitus treated with insulin (Chronic) 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 Sinusitis Parkinsonism Anemia (Chronic) Tremor of both hands (Chronic) Internal hemorrhoid (Chronic) Gait instability (Chronic) Hypercalcemia Hypomagnesemia Hypophosphatemia Medical History Arthritis Hx of breast cancer Anxiety Neuropathy Myocardial Infarction History of COVID-19 Thrombocytopenia DM type 2 (diabetes mellitus, type 2) CAD (coronary artery disease) Tremor Hypertension Hyperlipidemia Unstable angina (03/16/14) Surgical History H/O bilateral mastectomy H/O lumpectomy History of tooth extraction History of surgery History of colonoscopy History of trigger finger History of open reduction and internal fixation (ORIF) procedure History of cataract surgery History of cardiac cath History of coronary artery bypass graft Family History Sister Breast cancer Father Alcoholism Mother Heart disease Uncle Heart disease Daughter Family history of diabetes mellitus Other No family history of adverse response to anesthesia Denies family history of Ovarian cancer Prostate cancer Myocardial infarction Colorectal cancer Social History Smoking Status: Former smoker Tobacco Type: Cigarettes Age Started Using Tobacco: 13; Age Quit Using Tobacco: 43; packs per day: 0.75; Second Hand Exposure: No; Do You Dip or Chew Tobacco: No; Hx Alcohol Use: No Hx Substance Use: No Preferred Language: Korean Communication Ability: Effective Visual Impairment: No Limitations Hearing Ability: Normal Caterpillar Operator Required: No Beliefs That Will Affect Care: None marital status: Current Living Situation: Spouse current occupational status: retired 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 HENT: Negative for neck pain/stiffness, headache, congestion, sore throat, swelling. EYES: Negative for discharge/pain or vision changes. RESP: Negative for cough/hemoptysis and shortness of breath. CV: Negative chest pain, difficulty breathing, palpitations. ABD: Negative pain, nausea, vomiting. : Negative increase frequency, dysuria, blood in urine or stool. MUSC: Negative for muscle aches, edema. SKIN: Negative rash, lesions/sores. NEURO: Negative headache, dizziness, weakness. Physical Exam Physical Exam: GENERAL APPEARANCE NAD, activity normal for age, well developed/ well nourished, no cyanosis, pallor, or diaphoresis. EYES lids/conjunctiva normal. EARS/NOSE/THROAT Mucous membranes moist, nares normal, lips/teeth normal uvula midline without oral pharyngeal erythema, exudate or swelling TMs normal bilaterally. No lymphangitis/lymphedema. HEAD/NECK normocephalic atraumatic, no facial trauma, neck is supple. Bipap in place RESPIRATORY respiratory effort normal, speaks in full sentences, no tripod position, no accessory muscle use. Lungs clear to auscultation without rhonchi, wheezes, rales CARDIAC Regular rate and rhythm, no edema. ABDOMINAL Soft, ND/NT. No evidence of fluid wave. No pulsatile masses on exam, rebound tenderness, Blanca sign or pain over Mcburney's point. MUSCLES/EXTREMITIES No abnormal range of motion, no swelling. SKIN Warm, pink and dry. No rashes, dermatoses, petechiae or lesions. NEUROLOGICAL Speech is clear and appropriate. Normal level of consciousness. Gait and coordination are normal. 5/5 strength in all extremities. PSYCH Normal mood and affect. Judgement/competence is appropriate Results & Data Results & Data Vital Signs (Past 12 Hours) Vital Signs Pulse Resp BP BP Pulse Ox O2 Del Method O2 Flow Rate 05/31/24 15:12 82 30 H 134/73 99 05/31/24 15:09 84 21 123/85 99 05/31/24 15:00 82 21 126/72 99 05/31/24 14:56 115/68 05/31/24 14:50 134/82 05/31/24 14:48 BiPAP 05/31/24 14:47 98 BiPAP 05/31/24 14:45 90 33 H 144/82 H 98 05/31/24 14:36 90 30 H 146/90 H 98 05/31/24 14:35 146/90 H 05/31/24 14:30 214/107 H 05/31/24 14:30 100 H 28 H 98 05/31/24 14:21 104 H 34 H 92 05/31/24 14:20 22 197/129 H 94 05/31/24 14:15 103 H 33 H 96 05/31/24 14:13 101 H 36 H 216/132 H 94 Nasal Cannula 6 05/31/24 14:13 Oxymask 8 05/31/24 14:11 106 H 05/31/24 14:08 216/132 H FiO2 05/31/24 15:12 05/31/24 15:09 05/31/24 15:00 05/31/24 14:56 05/31/24 14:50 05/31/24 14:48 35 05/31/24 14:47 35 05/31/24 14:45 05/31/24 14:36 05/31/24 14:35 05/31/24 14:30 05/31/24 14:30 35 05/31/24 14:21 05/31/24 14:20 05/31/24 14:15 05/31/24 14:13 05/31/24 14:13 05/31/24 14:11 05/31/24 14:08 PG Care Time/CCT Total # of Minutes Spent Total Time Spent with Patient: Total time spent is greater than 50% in coordination of care (as documented) at patient's floor/unit and/or counseling patient: Coding Level of Care Code 94887 INT INP/OBS CARE 2/55MIN Diagnoses CHF exacerbation I50.9 NSTEMI (non-ST elevated myocardial infarction) I21.4 Diabetes E11.9 Hypertension I10 Hyperlipidemia E78.5
--- NOTE | 2024-05-31 18:08 | Emergency Department Note ---
History of Present Illness General Chief Complaint: Shortness of Breath/Dyspnea Time Seen by Provider: 05/31/24 14:10 History of Present Illness Provider Complaint: shortness of breath Onset (ago): day(s) (1) Severity: severe Consistency/Duration: + progressively worsening Relieved By: + oxygen and + upright position Exacerbated By: + lying flat, + exertion, + coughing and + talking Known history of: congestive heart failure Associated symptoms: + cough, + wheezing, + orthopnea and + chest congestion; no chest pain, no sputum production or no hemoptysis Treatment prior to arrival: oxygen and bronchodilator Related Data Home oxygen amount: none Home Medications Medication Instructions Recorded Confirmed Type anastrozole 1 mg tablet 1 mg PO QAM 11/08/18 05/31/24 History coenzyme Q10 200 mg capsule 200 mg PO QAM 01/06/20 05/31/24 History lancets 33 gauge (OneTouch Delica 02/09/20 05/12/24 History Plus Lancet) blood-glucose meter (OneTouch #1 ea 07/29/20 05/12/24 Rx Verio Meter) vit C 250 mg-vit E 90 mg-zinc 40 1 tab PO BID 09/26/21 05/31/24 History mg-copper 1 [id number] capsule (PreserVision AREDS-2) Spacer for Inhaler #1 ea 09/27/21 05/12/24 Rx blood-glucose meter (OneTouch #1 ea 03/24/22 05/12/24 Rx Verio Flex Meter) prevagen 1 tab PO DAILY 05/29/22 05/31/24 History insulin NPH isoph U-100 human 100 See Rx Instructions subcut 05/23/23 05/31/24 Rx unit/mL (3 mL) subcutaneous pen .COMPLEX 90 days #90 mL (Novolin N FlexPen) insulin regular human 100 unit/mL 30 unit (0.3 mL) subcut BID 90 05/23/23 05/31/24 Rx (3 mL) subcutaneous pen (Novolin R days #60 mL FlexPen) pen needle, diabetic 32 gauge x #400 ea 05/23/23 05/12/24 Rx 5/32" (BD Ultra-Fine Suzette Pen Needle) metoprolol tartrate 50 mg tablet 50 mg PO BID #180 tabs 05/31/23 05/31/24 Rx (Lopressor) ipratropium 0.5 mg-albuterol 3 mg 3 ml inhalation Q4H PRN wheezing 07/10/23 05/31/24 Rx (2.5 mg base)/3 mL nebulization #180 mL soln nebulizer and compressor #1 ea 07/10/23 05/12/24 Rx OneTouch Verio test strips (blood #300 ea 07/30/23 05/12/24 Rx sugar diagnostic) budesonide 0.5 mg/2 mL suspension 0.5 mg (2 mL) inhalation BID #60 mL 07/30/23 05/31/24 Rx for nebulization alendronate 70 mg tablet 70 mg PO .COMPLEX #5 tabs 12/19/23 05/31/24 Rx cyanocobalamin (vitamin B-12) 1,000 mcg PO .3XWK 12/19/23 05/31/24 History 2,500 mcg tablet atorvastatin 80 mg tablet 80 mg PO QPM #90 tabs 01/08/24 05/31/24 Rx nitroglycerin 0.4 mg sublingual 0.4 mg sublingual Q5M PRN chest 01/08/24 05/31/24 Rx tablet (Nitrostat) pain #25 tabs albuterol sulfate 90 mcg/actuation 2 puff inhalation Q6H PRN Wheezing 01/17/24 05/31/24 Rx aerosol inhaler #18 grams metformin 1,000 mg tablet 1,000 mg PO BID #180 tabs 01/21/24 05/31/24 Rx fluoxetine 20 mg capsule (Prozac) 20 mg PO QAM #90 caps 04/24/24 05/31/24 Rx primidone 50 mg tablet (Mysoline) 100 mg (2 x 50 mg) PO BID 90 days 05/06/24 05/31/24 Rx #360 tabs amlodipine 5 mg tablet 5 mg PO QAM #90 tabs 05/07/24 05/31/24 Rx clopidogrel 75 mg tablet 75 mg PO DAILY #90 tabs 05/28/24 05/31/24 Rx losartan 50 mg tablet 50 mg PO QAM #90 tabs 05/28/24 05/31/24 Rx choline [id number] 1 tab PO QAM 05/31/24 05/31/24 History Allergies Allergy/AdvReac Type Severity Reaction Status Date / Time lisinopril Allergy Intermediate Cough Verified 05/31/24 16:23 isosorbide AdvReac Headache Verified 05/31/24 16:23 Past Med/Surg History Problem List (Updated 05/31/24 @ 18:36 by Perry Chow MD) Flash pulmonary edema (Acute) Diabetes NSTEMI (non-ST elevated myocardial infarction) CHF exacerbation Dyspnea (Acute) Pulmonary edema (Acute) JOBY (acute kidney injury) (Acute) Hypomagnesemia (Acute) UTI (urinary tract infection) Diarrhea (Acute) Generalized weakness (Acute) Gait disorder Allergic rhinitis Overweight (BMI 25.0-29.9) Abnormal PFT Dyspnea on exertion Solitary pulmonary nodule Wheeze Postmenopausal estrogen deficiency Sore throat Congestion of nasal sinus Cough Headache Bacterial sinusitis Sensorineural hearing loss of both ears Diabetic nephropathy associated with type 2 diabetes mellitus Uncontrolled type 2 diabetes mellitus with hyperglycemia, with long-term current use of insulin Seborrheic keratoses Abrasion, right lower leg, initial encounter Subacromial bursitis Rotator cuff tendinitis Toe fracture Glenohumeral arthritis Toe swelling Left shoulder pain CAD (coronary artery disease) (Chronic) 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) Tremor (Chronic) Osteopenia (Acute) Obesity (Acute) Hypertension (Chronic) Dyslipidemia (Chronic) Depression (Chronic) Breast cancer (Chronic 07/2017) left breast infiltrating ductal CA dx 07/2017 (ER+/MT+, Her 2 -) and right breast invasive ductal CA dx 11/2017 (ER+/MT+, Her 2 +), s/p elective B/L mastectomy with right axillary dissection (0/7 nodes +), on Arimedex since Jan 2018 Arthralgia of multiple sites (Acute) Arteriosclerotic cardiovascular disease (Acute) Chronic kidney disease Type 2 diabetes mellitus treated with insulin (Chronic) 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 Sinusitis Parkinsonism Anemia (Chronic) Tremor of both hands (Chronic) Internal hemorrhoid (Chronic) Gait instability (Chronic) Hypercalcemia Hypomagnesemia Hypophosphatemia Medical History Arthritis Hx of breast cancer Anxiety Neuropathy Myocardial Infarction 2010 History of COVID-19 01/2021>MILD SYMPTOMS *RESOLVED Thrombocytopenia DM type 2 (diabetes mellitus, type 2) IDDM CAD (coronary artery disease) Tremor L ARM ON OCC-NO DIAGNOSIS Hypertension Hyperlipidemia Unstable angina (03/16/14) Surgical History H/O bilateral mastectomy SURGERY ONLY>(NO LIMB RESTRICTION) NO RECONSTRUCTION H/O lumpectomy LEFT X 2 History of tooth extraction History of surgery Right Axillary Dissection, Bilateral Breast Scar Revision - 12/2017 [facility] History of colonoscopy History of trigger finger right thumb release History of open reduction and internal fixation (ORIF) procedure RT ANKLE History of cataract surgery RT/LEFT History of cardiac cath STENTS 06/2010 IN LAD (DIAG AND CX), 1 STENT 04/2011, AND 1 STENT 2013 IN LAD History of coronary artery bypass graft 3 VESSELS-2009 AT [place] *FOLLOWS WITH DR. HAMMER Family History Sister Breast cancer Father Alcoholism Mother Heart disease Uncle Heart disease Daughter Family history of diabetes mellitus Other No family history of adverse response to anesthesia Denies family history of Ovarian cancer Prostate cancer Myocardial infarction Colorectal cancer Social History Smoking Status: Former smoker Tobacco Type: Cigarettes Age Started Using Tobacco: 13; Age Quit Using Tobacco: 43; packs per day: 0.75; Second Hand Exposure: No; Do You Dip or Chew Tobacco: No; Hx Alcohol Use: No Hx Substance Use: No Preferred Language: Arabic Communication Ability: Effective Visual Impairment: No Limitations Hearing Ability: Normal Library Aide Required: No Beliefs That Will Affect Care: None marital status: Current Living Situation: Spouse current occupational status: retired 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 [employer] Feels Safe at Home: Yes Childhood Exposure to Second-Hand Smoke: Yes Diet: regular caffeine: Yes Dental Care, Regularly: No Physical Activity Frequency: Does not Exercise Seatbelt Use: always Sunscreen Use: Yes Assistive Devices: None Physical Exam 2 Vital Signs: Vital Signs - 24 hr 05/31/24 14:08 05/31/24 14:11 05/31/24 14:13 Pulse Rate 106 H Pulse Rate from Sp O2 Sensor Respiratory Rate Respiratory Effort / Characteristics Spontaneous Access ory Muscle Use Lab ored Short of Loida th SOB on Exertion Respiratory Depth Shallow Respiratory Patter n Tachypnea Blood Pressure 216/132 H Blood Pressure [Le ft Arm] Blood Pressure Marci n 146 Blood Pressure Marci n [Left Arm] Pulse Oximetry Oxygen Delivery Me thod Oxymask Oxygen Flow Rate 8 Fraction of Inspir ed Oxygen SaO2/FiO2 Ratio Sepsis Recent Feve r Within 48 Hours Sepsis New/Unexpla ined Change in Men isabelle Status Sepsis Action Take n by Nursing 05/31/24 14:13 05/31/24 14:15 05/31/24 14:20 Pulse Rate 101 H 103 H Pulse Rate from Sp O2 Sensor 102 H Respiratory Rate 36 H 33 H 22 Respiratory Effort / Characteristics Accessory Muscle U se Labored Short o f Breath SOB on Ex ertion Respiratory Depth Respiratory Patter n Tachypnea Blood Pressure 216/132 H 197/129 H Blood Pressure [Le ft Arm] Blood Pressure Marci n 160 153 Blood Pressure Marci n [Left Arm] Pulse Oximetry 94 96 94 Oxygen Delivery Me thod Nasal Cannula Oxygen Flow Rate 6 Fraction of Inspir ed Oxygen SaO2/FiO2 Ratio Sepsis Recent Feve r Within 48 Hours No Sepsis New/Unexpla ined Change in Men isabelle Status No Sepsis Action Take n by Nursing Physician Notified 05/31/24 14:21 05/31/24 14:30 05/31/24 14:30 Pulse Rate 104 H 100 H Pulse Rate from Sp O2 Sensor 105 H Respiratory Rate 34 H 28 H Respiratory Effort / Characteristics Non-Labored Sponta neous Respiratory Depth Normal Respiratory Patter n Regular Blood Pressure 214/107 H Blood Pressure [Le ft Arm] Blood Pressure Marci n 149 Blood Pressure Marci n [Left Arm] Pulse Oximetry 92 98 Oxygen Delivery Me thod Oxygen Flow Rate Fraction of Inspir ed Oxygen 35 SaO2/FiO2 Ratio Sepsis Recent Feve r Within 48 Hours Sepsis New/Unexpla ined Change in Men isbaelle Status Sepsis Action Take n by Nursing 05/31/24 14:35 05/31/24 14:36 05/31/24 14:45 Pulse Rate 90 90 Pulse Rate from Sp O2 Sensor 90 Respiratory Rate 30 H 33 H Respiratory Effort / Characteristics Respiratory Depth Respiratory Patter n Blood Pressure 146/90 H 144/82 H Blood Pressure [Le ft Arm] 146/90 H Blood Pressure Marci n 108 101 Blood Pressure Marci n [Left Arm] 108 Pulse Oximetry 98 98 Oxygen Delivery Me thod Oxygen Flow Rate Fraction of Inspir ed Oxygen SaO2/FiO2 Ratio Sepsis Recent Feve r Within 48 Hours Sepsis New/Unexpla ined Change in Men isabelle Status Sepsis Action Take n by Nursing 05/31/24 14:47 05/31/24 14:48 05/31/24 14:50 Pulse Rate Pulse Rate from Sp O2 Sensor Respiratory Rate Respiratory Effort / Characteristics Respiratory Depth Respiratory Patter n Blood Pressure 134/82 Blood Pressure [Le ft Arm] Blood Pressure Marci n 94 Blood Pressure Marci n [Left Arm] Pulse Oximetry 98 Oxygen Delivery Me thod BiPAP BiPAP Oxygen Flow Rate Fraction of Inspir ed Oxygen 35 35 SaO2/FiO2 Ratio 280 Sepsis Recent Feve r Within 48 Hours Sepsis New/Unexpla ined Change in Men isabelle Status Sepsis Action Take n by Nursing 05/31/24 14:56 05/31/24 15:00 05/31/24 15:09 Pulse Rate 82 84 Pulse Rate from Sp O2 Sensor 82 85 Respiratory Rate 21 21 Respiratory Effort / Characteristics Respiratory Depth Respiratory Patter n Blood Pressure 115/68 126/72 123/85 Blood Pressure [Le ft Arm] Blood Pressure Marci n 91 90 97 Blood Pressure Marci n [Left Arm] Pulse Oximetry 99 99 Oxygen Delivery Me thod Oxygen Flow Rate Fraction of Inspir ed Oxygen SaO2/FiO2 Ratio Sepsis Recent Feve r Within 48 Hours Sepsis New/Unexpla ined Change in Men isabelle Status Sepsis Action Take n by Nursing 05/31/24 15:12 Pulse Rate 82 Pulse Rate from Sp O2 Sensor 83 Respiratory Rate 30 H Respiratory Effort / Characteristics Respiratory Depth Respiratory Patter n Blood Pressure 134/73 Blood Pressure [Le ft Arm] Blood Pressure Marci n 93 Blood Pressure Marci n [Left Arm] Pulse Oximetry 99 Oxygen Delivery Me thod Oxygen Flow Rate Fraction of Inspir ed Oxygen SaO2/FiO2 Ratio Sepsis Recent Feve r Within 48 Hours Sepsis New/Unexpla ined Change in Men isabelle Status Sepsis Action Take n by Nursing Physical Exam: Physical Exam GENERAL: Ill-appearing. CV: Tachycardic rate, regular rhythm, normal heart sounds and intact distal pulses. There is no peripheral edema. Palpable radial pulses bue. PULM/CHEST: Tachypneic. Inspiratory rales bilaterally. Expiratory wheezes bilaterally. NEURO: Motor and sensation grossly intact. Course Course 1410: The patient was evaluated in room A1. A complete history and physical exam was performed Cardiac monitoring: An order was placed for continuous cardiac monitoring. The monitor shows a rate of 100 with sinus rhythm interpreted by me Patient hypoxic and hypertensive. Patient placed on supplemental oxygen via Ventimask. Patient will be started on BiPAP. Patient sounds like she might be in flash pulmonary edema. Nitroglycerin 0.4 mg sublingual ordered for the patient. 1417: Chest x-ray confirms cardiomegaly with fluid overload. Patient does appear to be in flash pulmonary edema. Patient moved to resuscitation bay will be started on BiPAP. 1423: Patient is having difficult time with sublingual nitroglycerin not dissolving underneath her tongue. Patient switched to Nitropaste. 1500: Vital signs stable. Patient tolerating BiPAP well. Blood pressure improved. Nitropaste removed from the patient's chest. Patient reports her breathing is improved. BNP greater than 3000 high-sensitivity troponin 166.7. Patient will be admitted to the [facility] team. Administered Medications Heparin Sodium/Dextrose (Heparin 93325 Unit/500 Ml D5w) 25,000 units in 500 mls @ 22 mls/hr IV .[id number] [facility]; Protocol Stop: 06/30/24 15:44 Last Admin: 05/31/24 16:08 Dose: 1,100 units/hr, 22 mls/hr Documented By: HENRY Co-signed By: LIDIA Nitroglycerin (Nitroglycerin Sl 0.4 Mg/Tab Tab) 0.4 mg SL Q5M PRN PRN Reason: Chest Pain Stop: 06/30/24 14:12 Last Admin: 05/31/24 14:20 Dose: 0.4 mg Documented By: MARGIE Discontinued Medications Aspirin (Aspirin Chew 324 Mg) 324 mg PO NOW STA Stop: 05/31/24 14:14 Last Admin: 05/31/24 14:22 Dose: 324 mg Documented By: MARGIE Aspirin (Aspirin Chew 324 Mg) Confirm Administered Dose 324 mg .ROUTE .STK-MED ONE Stop: 05/31/24 14:15 Last Admin: 05/31/24 14:22 Dose: Not Given Documented By: MARGIE Furosemide (Furosemide 40 Mg/4 Ml Vial) 40 mg IV ONE ONE Stop: 05/31/24 14:59 Last Admin: 05/31/24 15:07 Dose: 40 mg Documented By: MARGIE Heparin Sodium (Porcine) (Heparin Sod (Porcine) 1000 Unit/Ml) 1 units IV NOW ONE Stop: 05/31/24 15:40 Last Admin: 05/31/24 16:10 Dose: 5,000 units Documented By: HENRY Co-signed By: LIDIA Heparin Sodium/Dextrose (Heparin Iv Adult Wt-Based Standard W/ Initial Bolus Protocol) 1 each IV NOW STA; Protocol Stop: 05/31/24 15:24 Last Admin: 05/31/24 16:18 Dose: Not Given Documented By: HENRY Nitroglycerin (Nitroglycerin Sl 0.4 Mg/Tab Tab) Confirm Administered Dose 0.4 mg .ROUTE .STK-MED ONE Stop: 05/31/24 14:14 Last Admin: 05/31/24 14:22 Dose: Not Given Documented By: MARGIE Nitroglycerin (Nitroglycerin 2% Ointment 30gm Tube) 0.5 inch EXT NOW ONE Stop: 05/31/24 14:24 Last Admin: 05/31/24 14:25 Dose: 0.5 inch Documented By: MARGIE Nitroglycerin (Nitroglycerin 2% Ointment 30gm Tube) Confirm Administered Dose 18 inch EXT .STK-MED ONE Stop: 05/31/24 14:24 Last Admin: 05/31/24 14:25 Dose: Not Given Documented By: MARGIE Medical Decision Making Laboratory Data Attestation: I reviewed the patient's lab results. 05/31/24 14:13 05/31/24 14:13 Lab Results 05/31/24 05/31/24 Range/Units 14:13 14:45 WBC 19.85 H (4.8-10.8) K/ul RBC 3.80 L (4.20-5.40) M/uL Hgb 11.0 L (12.0-16.0) g/dl Hct 33.7 L (37.0-47.0) % MCV 88.7 (80.0-100.0) fL MCH 28.9 (25.0-34.0) pg MCHC 32.6 (32.0-36.0) g/dL RDW Std Deviation 45.1 (36.4-46.3) fL RDW Coeff of Sarina 14.1 (11.5-14.5) % Plt Count 609 H (130-400) K/uL MPV 9.7 (9.4-12.4) fL Immature Gran % (Auto) 0.8 % Neut % (Auto) 80.0 % Lymph % (Auto) 12.6 % [place] % (Auto) 4.8 % Eos % (Auto) 1.4 % Baso % (Auto) 0.4 % Neut # (Auto) 15.89 H (1.40-6.50) K/uL Lymph # (Auto) 2.50 (1.20-3.40) K/uL [place] # (Auto) 0.95 H (0.11-0.59) K/uL Eos # (Auto) 0.27 (0.00-0.50) K/uL Baso # (Auto) 0.08 (0.00-0.20) K/uL Immature Gran # (Auto) 0.16 (0.01-0.20) K/uL VBG pH 7.23 L (7.36-7.41) VBG pCO2 55 H (38-50) mmHg VBG pO2 53 mmHg VBG HCO3 23 mmol/L VBG O2 Saturation 80.9 % VBG Base Excess -5.0 mEq/L Sodium 132 L (136-145) mmol/L Potassium 5.3 H (3.5-5.1) mmol/L Chloride 99 (98-107) mmol/L Carbon Dioxide 24 (21-32) mmol/L Anion Gap 9 (3-11) BUN 17 (6-23) mg/dl Creatinine 1.01 (0.6-1.2) mg/dl Est Cr Clr Drug Dosing Not Reportable eGFR 56.28 BUN/Creatinine Ratio 16.8 (10-20) Glucose 283 H (70-99(Fasting)) mg/dl Calcium 10.0 (8.6-10.3) mg/dl Troponin I High Sens 166.7 H* (0-14) pg/ml B-Natriuretic Peptide 3042 H (0-100) pg/ml Lipase 51 (11-82) U/L SARS-CoV-2 (PCR) NEGATIVE (Negative) Influenza Type A (PCR) Negative (Neg) Influenza Type B (PCR) Negative (Neg) RSV (RT-PCR) Negative (Neg) Imaging Data Attestation: I personally reviewed and interpreted this imaging study as follows: My Impression: Chest x-ray confirms cardiomegaly with fluid overload. Patient does appear to be in flash pulmonary edema. Radiologist's Impression: Chest X-Ray 05/31/24 14:13 HISTORY: Chest pain. Shortness of breath. TECHNIQUE: Portable AP radiograph of the chest. COMPARISON: Chest radiograph dated 05/25/2024. FINDINGS: Small effusions. Pulmonary vascular congestion. Mild pulmonary edema. No pneumothorax. Cardiomegaly. Postsurgical changes of median sternotomy and CABG. Left-sided aortic arch. Midline trachea. Degenerative changes of the shoulders. Included upper abdomen is unremarkable. IMPRESSION: Findings of CHF with cardiomegaly, trace effusions, vascular congestion, and mild interstitial pulmonary edema. Electronically signed by Zak Burger 05-31-2024 2:35 PM ECG Data Attestation: I personally reviewed and interpreted this ECG as follows: Interpretation: Sinus tachycardia with rate of 105. MT QRS and QTc intervals within normal limits. No ST elevation or ST depression. Baseline artifact and wander secondary to patient respiratory distress. [facility] Narrative 1410: The patient was evaluated in room A1. A complete history and physical exam was performed Cardiac monitoring: An order was placed for continuous cardiac monitoring. The monitor shows a rate of 100 with sinus rhythm interpreted by me Patient hypoxic and hypertensive. Patient placed on supplemental oxygen via Ventimask. Patient will be started on BiPAP. Patient sounds like she might be in flash pulmonary edema. Nitroglycerin 0.4 mg sublingual ordered for the patient. 1417: Chest x-ray confirms cardiomegaly with fluid overload. Patient does appear to be in flash pulmonary edema. Patient moved to resuscitation bay will be started on BiPAP. 1423: Patient is having difficult time with sublingual nitroglycerin not dissolving underneath her tongue. Patient switched to Nitropaste. 1500: Vital signs stable. Patient tolerating BiPAP well. Blood pressure improved. Nitropaste removed from the patient's chest. Patient reports her breathing is improved. BNP greater than 3000 high-sensitivity troponin 166.7. Patient will be admitted to the [facility] team. Impression & Plan Flash pulmonary edema Critical Care Time Critical Care Time: Yes Total Critical Care Time: 50 I have personally spent greater than 50 minutes of critical care time in the direct management of this patient. This includes bedside care, interpretation of diagnostic studies, and testing, discussion with consultants, patient, and family members, and other required patient management activities. This 50 minutes is in excess of all separately billable procedures. Discharge Plan Visit Data Chief Complaint: Shortness of Breath/Dyspnea ED Provider: Perry Chow Discharge Problem: Flash pulmonary edema Patient Disposition: Admitted As Inpatient Discharge Instructions Interventions: ED Discharge Assessment Last Done: 05/31/24 18:21
[2024-05-31] MEDS: FUROSEMIDE 40 MG/4 ML VIAL IV SCH (19:24)
[2024-05-31] MEDS: ASPIRIN 81 MG ECTAB PO SCH (19:56)
[2024-05-31] MEDS: ATORVASTATIN 40 MG TAB PO SCH (19:57)
[2024-05-31] MEDS: PRIMIDONE 50 MG TAB PO SCH (19:58)
[2024-05-31] MEDS: METOPROLOL TARTRATE 50 MG TAB PO SCH (19:58)
[2024-05-31] MEDS: LANTUS PER UNIT CHARGE SC SCH (20:04)
[2024-05-31] MEDS: INSULIN ASPART PER UNIT CHARGE SC SCH (20:05)
--- NOTE | 2024-05-31 22:44 | Electrocardiogram Report ---
Test Reason : Blood Pressure : */* mmHG Vent. Rate : 105 BPM Atrial Rate : 105 BPM P-R Int : 152 ms QRS Dur : 92 ms QT Int : 350 ms P-R-T Axes : 67 -28 123 degrees QTcB Int : 462 ms Sinus tachycardia Possible Left atrial enlargement Anteroseptal infarct , age undetermined Abnormal ECG When compared with ECG of 25-May-2024 10:56, QRS duration has increased Anteroseptal infarct is now Present Non-specific change in ST segment in Anterior leads Confirmed by Josr Rodrigues ([id number]) on 05/31/2024 10:44:14 PM Referred By: REFERRED SELF Confirmed By: Josr Rodrigues
[2024-05-31 23:48] LABS: ANTI-Xa, UFH(UnfractionatedHep 0.97 IU/ml (0.3-0.7)
[2024-06-01] MEDS: LANTUS PER UNIT CHARGE SC SCH (08:22)
[2024-06-01 08:49] LABS: ANTI-Xa, UFH(UnfractionatedHep 0.72 IU/ml (0.3-0.7)
[2024-06-01] MEDS: CLOPIDOGREL BISULFATE 75 MG TAB PO SCH (09:00)
[2024-06-01] MEDS: ANASTROZOLE 1 MG TAB PO SCH (09:00)
[2024-06-01] MEDS: amLODIPine BESYLATE 5 MG TAB PO SCH (09:00)
[2024-06-01] MEDS: LOSARTAN POTASSIUM 50 MG TAB PO SCH (09:00)
[2024-06-01] MEDS: FLUoxetine HCL 20 MG CAP PO SCH (09:00)
--- NOTE | 2024-06-01 09:06 | Cardiology Consultation ---
Date of Consultation June 01, 2024 Assessment & Plan (1) Acute HFrEF (heart failure with reduced ejection fraction): (2) NSTEMI (non-ST elevated myocardial infarction): (3) CAD (coronary artery disease): (4) Hypertension: (5) Dyslipidemia: (6) History of coronary artery bypass graft: (7) S/P coronary artery stent placement: (8) Cardiomyopathy: (9) Anemia: (10) Pulmonary hypertension: (11) Mitral regurgitation: Plan ASSESSMENT/PLAN: 1. Acute heart failure with reduced EF: LV systolic function has declined. Much better after initial diuresis but unfortunately fluid balance has not been monitored. Not yet back to baseline from a breathing standpoint. She still appears mildly hypervolemic. NYHA class IV on presentation. Continue intravenous Lasix. Reminded patient to collect her urine for measurement. Monitor renal function and electrolytes closely. Replace losartan with Entresto tomorrow. Replace metoprolol to tartrate with metoprolol succinate at discharge. She was initially hyperkalemic and therefore holding off on mineralocorticoid receptor antagonist for now. Will consider SGLT2 inhibitor later this hospital stay. Strict I's and O's. Daily weights. Low-sodium diet. 2. NSTEMI: She did not present with angina. Elevated troponin may be due to demand ischemia in the setting of heart failure however she also had abnormal stress in the past calendar year and has documented CAD. With reduced LV systolic function and heart failure presentation, consider coronary angiography. Risk and benefits were discussed with her in detail and she was agreeable to proceed. Coronary angiography is not urgent and we will first ask primary spitalist service to evaluate her anemia which has worsened today compared to yesterday despite diuresis. Continue antiplatelet therapy if no contraindication. Can continue heparin drip for now but would discontinue if her hemoglobin further drops significantly or for active bleeding. Cardiac rehab. Continue beta-marcela. 3. CAD s/p CABG and PCI LAD/Diag and Cx: No angina but elevated troponin and heart failure presentation with abnormal stress in the past calendar year. Antiplatelet therapy as above. If single antiplatelet therapy, continue Plavix as she has chronically been on. Continue beta-marcela. 4. Cardiomyopathy: LV systolic function has declined. Plan as above. She does not meet criteria for ICD for primary prevention. Adjust medical therapy for GDMT. 5. Mitral regurgitation: Appears moderate on 06/01/2024 echo. Follow-up in the outpatient setting. 6. Pulmonary hypertension: Moderately elevated. Could be due to heart failure/hypervolemia. Can reevaluate in the future after diuresis. 7. Hypertension: Blood pressure well-controlled. 8. Dyslipidemia: Continue high intensity statin therapy. LDL has been well- controlled. 9. Anemia: Baseline hemoglobin seems to be in the 11 range. Her hemoglobin was 11 on 05/31/2024 but dropped to 9.4 today and she describes possible melena. Will defer to primary hospitalist service. Heme check stool. Monitor for bleeding. 10. Disposition: Cardiology will continue to follow. Follow-up with Dr. Hammer on discharge. Heart failure program referral. Highly complex medical issues. Thank you for allowing me to participate in the care of your patient. Please call for any other questions or concerns. Sincerely, Rafael Rodrigues M.D. History of Present Illness Reason for Consultation: "CHF, elevated troponin" Requesting Physician: Syd Adams MD Attending Physician: Syd Adams MD History of Present Illness Ms. Xie is a very pleasant 78-year-old female with a history significant for CAD s/p CABG x 3 (2009; [place] to LAD and 2 occluded SVG), PCI of LAD/diagonal and circumflex (2011), hypertension, dyslipidemia, type 2 diabetes, and DCIS s/p mastectomy. She also has a history of gastritis/ulcers and diverticulosis in the setting of iron deficiency anemia. Her primary dye mixer is Dr. Hammer. She was hospitalized on 05/31/2024 with increased shortness of breath. She had been treated for UTI earlier this month and was discharged on 05/27/2024 with UTI. She states that after returning home, she became more increasingly short of breath, to the point where she was short of breath even sitting. She otherwise had been gradually becoming more short of breath up until that point. She developed orthopnea but no edema. She denies chest pain, syncope, near syncope, palpitations, hematuria, or hematochezia. She has noted black soft stool over the past few days. She also had experiencing back pain before her presentation. On presentation, she was placed on BiPAP by initial providers and given intravenous Lasix. Although fluid balance is not complete, she states that she had significant urine output and feels much better. She is not yet back to baseline however. Review of systems: As above. Family history: Mother and her mother's siblings had heart disease. Social history: She quit smoking approximately 40 years ago. No alcohol or drug abuse. She lives at home with her (Kane). She has 2 daughters (Queta and Joleen). Her daughters and were present at the bedside. Allergies Allergy/AdvReac Type Severity Reaction Status Date / Time lisinopril Allergy Intermediate Cough Verified 05/31/24 16:23 isosorbide AdvReac Headache Verified 05/31/24 16:23 Home Medications Medication Instructions Recorded Confirmed Type anastrozole 1 mg tablet 1 mg PO QAM 11/08/18 05/31/24 History coenzyme Q10 200 mg capsule 200 mg PO QAM 01/06/20 05/31/24 History lancets 33 gauge (OneTouch Delica 02/09/20 05/12/24 History Plus Lancet) blood-glucose meter (OneTouch #1 ea 07/29/20 05/12/24 Rx Verio Meter) vit C 250 mg-vit E 90 mg-zinc 40 1 tab PO BID 09/26/21 05/31/24 History mg-copper 1 gm-[id number]-dssyec capsule (PreserVision AREDS-2) Spacer for Inhaler #1 ea 09/27/21 05/12/24 Rx blood-glucose meter (OneTouch #1 ea 03/24/22 05/12/24 Rx Verio Flex Meter) prevagen 1 tab PO DAILY 05/29/22 05/31/24 History insulin NPH isoph U-100 human 100 See Rx Instructions subcut 05/23/23 05/31/24 Rx unit/mL (3 mL) subcutaneous pen .COMPLEX 90 days #90 mL (Novolin N FlexPen) insulin regular human 100 unit/mL 30 unit (0.3 mL) subcut BID 90 05/23/23 05/31/24 Rx (3 mL) subcutaneous pen (Novolin R days #60 mL FlexPen) pen needle, diabetic 32 gauge x #400 ea 05/23/23 05/12/24 Rx 5/32" (BD Ultra-Fine Suzette Pen Needle) metoprolol tartrate 50 mg tablet 50 mg PO BID #180 tabs 05/31/23 05/31/24 Rx (Lopressor) ipratropium 0.5 mg-albuterol 3 mg 3 ml inhalation Q4H PRN wheezing 07/10/23 05/31/24 Rx (2.5 mg base)/3 mL nebulization #180 mL soln nebulizer and compressor #1 ea 07/10/23 05/12/24 Rx OneTouch Verio test strips (blood #300 ea 07/30/23 05/12/24 Rx sugar diagnostic) budesonide 0.5 mg/2 mL suspension 0.5 mg (2 mL) inhalation BID #60 mL 07/30/23 05/31/24 Rx for nebulization alendronate 70 mg tablet 70 mg PO .COMPLEX #5 tabs 12/19/23 05/31/24 Rx cyanocobalamin (vitamin B-12) 1,000 mcg PO .3XWK 12/19/23 05/31/24 History 2,500 mcg tablet atorvastatin 80 mg tablet 80 mg PO QPM #90 tabs 01/08/24 05/31/24 Rx nitroglycerin 0.4 mg sublingual 0.4 mg sublingual Q5M PRN chest 01/08/24 05/31/24 Rx tablet (Nitrostat) pain #25 tabs albuterol sulfate 90 mcg/actuation 2 puff inhalation Q6H PRN Wheezing 01/17/24 05/31/24 Rx aerosol inhaler #18 grams metformin 1,000 mg tablet 1,000 mg PO BID #180 tabs 01/21/24 05/31/24 Rx fluoxetine 20 mg capsule (Prozac) 20 mg PO QAM #90 caps 04/24/24 05/31/24 Rx primidone 50 mg tablet (Mysoline) 100 mg (2 x 50 mg) PO BID 90 days 05/06/24 05/31/24 Rx #360 tabs amlodipine 5 mg tablet 5 mg PO QAM #90 tabs 05/07/24 05/31/24 Rx clopidogrel 75 mg tablet 75 mg PO DAILY #90 tabs 05/28/24 05/31/24 Rx losartan 50 mg tablet 50 mg PO QAM #90 tabs 05/28/24 05/31/24 Rx choline [id number] 1 tab PO QAM 05/31/24 05/31/24 History Problem List (Updated 06/01/24 @ 21:57 by Josr Rodrigues MD) Mitral regurgitation Pulmonary hypertension Cardiomyopathy S/P coronary artery stent placement Acute HFrEF (heart failure with reduced ejection fraction) Flash pulmonary edema (Acute) Diabetes NSTEMI (non-ST elevated myocardial infarction) CHF exacerbation Dyspnea (Acute) Pulmonary edema (Acute) JOBY (acute kidney injury) (Acute) Hypomagnesemia (Acute) UTI (urinary tract infection) Diarrhea (Acute) Generalized weakness (Acute) Gait disorder Allergic rhinitis Overweight (BMI 25.0-29.9) Abnormal PFT Dyspnea on exertion Solitary pulmonary nodule Wheeze Postmenopausal estrogen deficiency Sore throat Congestion of nasal sinus Cough Headache Bacterial sinusitis Sensorineural hearing loss of both ears Diabetic nephropathy associated with type 2 diabetes mellitus Uncontrolled type 2 diabetes mellitus with hyperglycemia, with long-term current use of insulin Seborrheic keratoses Abrasion, right lower leg, initial encounter Subacromial bursitis Rotator cuff tendinitis Toe fracture Glenohumeral arthritis Toe swelling Left shoulder pain CAD (coronary artery disease) (Chronic) 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) Tremor (Chronic) Osteopenia (Acute) Obesity (Acute) Hypertension (Chronic) Dyslipidemia (Chronic) Depression (Chronic) Breast cancer (Chronic 07/2017) left breast infiltrating ductal CA dx 07/2017 (ER+/MT+, Her 2 -) and right breast invasive ductal CA dx 11/2017 (ER+/MT+, Her 2 +), s/p elective B/L mastectomy with right axillary dissection (0/7 nodes +), on Arimedex since Jan 2018 Arthralgia of multiple sites (Acute) Arteriosclerotic cardiovascular disease (Acute) Chronic kidney disease Type 2 diabetes mellitus treated with insulin (Chronic) 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 Sinusitis Parkinsonism Anemia (Chronic) Tremor of both hands (Chronic) Internal hemorrhoid (Chronic) Gait instability (Chronic) Hypercalcemia Hypomagnesemia Hypophosphatemia Patient History Medical History Arthritis Hx of breast cancer Anxiety Neuropathy Myocardial Infarction 2009 History of COVID-19 01/2021>MILD SYMPTOMS *RESOLVED Thrombocytopenia DM type 2 (diabetes mellitus, type 2) IDDM CAD (coronary artery disease) Tremor L ARM ON OCC-NO DIAGNOSIS Hypertension Hyperlipidemia Unstable angina (03/16/14) Surgical History H/O bilateral mastectomy SURGERY ONLY>(NO LIMB RESTRICTION) NO RECONSTRUCTION H/O lumpectomy LEFT X 2 History of tooth extraction History of surgery Right Axillary Dissection, Bilateral Breast Scar Revision - 12/2017 [facility] History of colonoscopy History of trigger finger right thumb release History of open reduction and internal fixation (ORIF) procedure RT ANKLE History of cataract surgery RT/LEFT History of cardiac cath STENTS 06/2010 IN LAD (DIAG AND CX), 1 STENT 04/2011, AND 1 STENT 2013 IN LAD History of coronary artery bypass graft 3 VESSELS-2009 AT [facility] *FOLLOWS WITH DR. HAMMER Family History Sister Breast cancer Father Alcoholism Mother Heart disease Uncle Heart disease Daughter Family history of diabetes mellitus Other No family history of adverse response to anesthesia Denies family history of Ovarian cancer Prostate cancer Myocardial infarction Colorectal cancer Social History Smoking Status: Former smoker Tobacco Type: Cigarettes Age Started Using Tobacco: 13; Age Quit Using Tobacco: 43; packs per day: 0.75; Second Hand Exposure: No; Do You Dip or Chew Tobacco: No; Hx Alcohol Use: No Hx Substance Use: No Preferred Language: Samoan Communication Ability: Effective Visual Impairment: No Limitations Hearing Ability: Normal Shelf Stocker Required: No Beliefs That Will Affect Care: None marital status: Current Living Situation: Spouse Current Living Situation Comment: single story house current occupational status: retired 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 Alert and oriented. HEENT: Anicteric sclera. Neck: No JVD. Hepatojugular reflux noted. No bruits. Normal carotid upstrokes bilaterally. Cardiac: Regular. Normal S1-S2. 1/6 systolic ejection murmur. Pulmonary: Clear to auscultation bilaterally without wheezes, rales, or rhonchi. Abdomen: Soft, nontender, nondistended, with normoactive bowel sounds. No bruits noted. Extremities: 2+ radial pulses bilaterally. 2+ posterior tibialis pulses bilaterally. Trace bilateral pedal edema. No cyanosis. Psychiatric: Affect appears appropriate. Results & Data Vital Signs (Past 12 Hours) Vital Signs Temp Pulse Pulse Resp BP Pulse Ox O2 Del Method 06/01/24 07:03 36.4 C L 73 18 117/72 99 Nasal Cannula 06/01/24 05:31 69 06/01/24 03:38 36.7 C 83 16 117/71 98 Nasal Cannula 05/31/24 22:36 36.8 C 80 18 116/74 94 Nasal Cannula 05/31/24 21:50 71 O2 Flow Rate 06/01/24 07:03 2 06/01/24 05:31 06/01/24 03:38 05/31/24 22:36 05/31/24 21:50 Laboratory Results Laboratory Results - last 24 hr 05/31/24 05/31/24 05/31/24 14:13 14:45 15:58 WBC 19.85 H RBC 3.80 L Hgb 11.0 L Hct 33.7 L MCV 88.7 MCH 28.9 MCHC 32.6 RDW Std Deviation 45.1 RDW Coeff of Sarina 14.1 Plt Count 609 H MPV 9.7 Immature Gran % (Auto) 0.8 Neut % (Auto) 80.0 Lymph % (Auto) 12.6 [place] % (Auto) 4.8 Eos % (Auto) 1.4 Baso % (Auto) 0.4 Neut # (Auto) 15.89 H Lymph # (Auto) 2.50 [place] # (Auto) 0.95 H Eos # (Auto) 0.27 Baso # (Auto) 0.08 Immature Gran # (Auto) 0.16 Heparin Anti-Xa, Unfract VBG pH 7.23 L VBG pCO2 55 H VBG pO2 53 VBG HCO3 23 VBG O2 Saturation 80.9 VBG Base Excess -5.0 Sodium 132 L Potassium 5.3 H Chloride 99 Carbon Dioxide 24 Anion Gap 9 BUN 17 Creatinine 1.01 Est Cr Clr Drug Dosing Not Reportable eGFR 56.28 BUN/Creatinine Ratio 16.8 Glucose 283 H POC Glucose Calcium 10.0 Troponin I High Sens 166.7 H* 237.7 H* D B-Natriuretic Peptide 3042 H Lipase 51 SARS-CoV-2 (PCR) NEGATIVE Influenza Type A (PCR) Negative Influenza Type B (PCR) Negative RSV (RT-PCR) Negative 05/31/24 05/31/24 06/01/24 18:36 22:36 07:02 WBC RBC Hgb Hct MCV MCH MCHC RDW Std Deviation RDW Coeff of Sarina Plt Count MPV Immature Gran % (Auto) Neut % (Auto) Lymph % (Auto) [place] % (Auto) Eos % (Auto) Baso % (Auto) Neut # (Auto) Lymph # (Auto) [place] # (Auto) Eos # (Auto) Baso # (Auto) Immature Gran # (Auto) Heparin Anti-Xa, Unfract 0.97 H* VBG pH VBG pCO2 VBG pO2 VBG HCO3 VBG O2 Saturation VBG Base Excess Sodium Potassium Chloride Carbon Dioxide Anion Gap BUN Creatinine Est Cr Clr Drug Dosing eGFR BUN/Creatinine Ratio Glucose POC Glucose 212 H 161 H Calcium Troponin I High Sens 397.9 H* D B-Natriuretic Peptide Lipase SARS-CoV-2 (PCR) Influenza Type A (PCR) Influenza Type B (PCR) RSV (RT-PCR) 06/01/24 08:04 WBC RBC Hgb Hct MCV MCH MCHC RDW Std Deviation RDW Coeff of Sarina Plt Count MPV Immature Gran % (Auto) Neut % (Auto) Lymph % (Auto) [place] % (Auto) Eos % (Auto) Baso % (Auto) Neut # (Auto) Lymph # (Auto) [place] # (Auto) Eos # (Auto) Baso # (Auto) Immature Gran # (Auto) Heparin Anti-Xa, Unfract 0.72 H* VBG pH VBG pCO2 VBG pO2 VBG HCO3 VBG O2 Saturation VBG Base Excess Sodium Potassium Chloride Carbon Dioxide Anion Gap BUN Creatinine Est Cr Clr Drug Dosing eGFR BUN/Creatinine Ratio Glucose POC Glucose Calcium Troponin I High Sens 439.9 H* B-Natriuretic Peptide Lipase SARS-CoV-2 (PCR) Influenza Type A (PCR) Influenza Type B (PCR) RSV (RT-PCR) Diagnostic Findings Labs reviewed and notable for elevated high-sensitivity troponin initially 166 and climbing to 439; mild hyperkalemia, stable renal function, elevated A1c, recently normal magnesium and transaminase levels, leukocytosis, chronic and stable anemia, elevated platelets, elevated BNP, normal lipase. Chest x-ray 05/31/2024: Images personally reviewed: Increased vascular congestion. No obvious infiltrate on personal review. Radiology reports trace pleural effusions, vascular congestion and mild interstitial pulmonary edema. ECG personally reviewed 325: Sinus tachycardia 105 bpm. Anteroseptal infarct. Lateral ST/T wave abnormality. Dobutamine stress echo 08/28/2023 was abnormal with septal wall hypokinesis at peak stress. Resting EF 55 to 60%. No significant valvular abnormalities. Outpatient cardiology note reviewed from 01/08/2024. History and physical report reviewed. ECHO 06/01/2024: 1. Normal left ventricular size with moderately reduced systolic function. EF 35-40%. Severe hypokinesis of the mid inferior wall. Probable moderate hypokinesis of the anterior wall. Otherwise, mild global hypokinesis. Moderate concentric left ventricular hypertrophy. 2. Sclerotic aortic valve without significant stenosis. 3. Moderate mitral regurgitation. 4. Moderate pulmonary hypertension. Estimated RVSP 54 mmHg. 5. Technically difficult study. 6. Compared to prior study on 08/28/2023, LV systolic function has declined. Previous study was enhanced with IV echo contrast which allowed for better wall motion analysis. Mitral regurgitation is now moderate and RVSP is now moderately elevated. Medications Administered Current Inpatient Medications Acetaminophen (Acetaminophen 325 Mg Tab) 650 mg PO Q4H PRN PRN Reason: pain/fever Stop: 06/30/24 15:24 Albuterol (Albut/Ipratrop 3mg/0.5mg Neb 3 Ml Vial) 3 ml INH Q4H PRN; Protocol PRN Reason: wheezing Stop: 06/30/24 15:19 Amlodipine Besylate (Amlodipine Besylate 5 Mg Tab) 5 mg PO QAM AZEEM Stop: 07/01/24 08:59 Last Admin: 06/01/24 09:00 Dose: 5 mg Anastrozole (Anastrozole 1 Mg Tab) 1 mg PO QAM AZEEM Stop: 07/01/24 08:59 Last Admin: 06/01/24 09:00 Dose: 1 mg Aspirin (Aspirin 81 Mg Ectab) 81 mg PO DAILY AZEEM Stop: 06/30/24 16:44 Last Admin: 06/01/24 09:00 Dose: 81 mg Atorvastatin Calcium (Atorvastatin 40 Mg Tab) 80 mg PO QPM AZEEM Stop: 06/30/24 20:59 Last Admin: 05/31/24 19:57 Dose: 80 mg Clopidogrel Bisulfate (Clopidogrel Bisulfate 75 Mg Tab) 75 mg PO DAILY AZEEM Stop: 07/01/24 08:59 Last Admin: 06/01/24 09:00 Dose: 75 mg Dextrose (Dextrose 50% 50 Ml Syringe) 25 - 50 ml IV UD PRN; Protocol PRN Reason: Hypoglycemia Protocol Stop: 06/30/24 15:24 Fluoxetine HCl (Fluoxetine Hcl 20 Mg Cap) 20 mg PO QAM AZEEM Stop: 07/01/24 08:59 Last Admin: 06/01/24 09:00 Dose: 20 mg Furosemide (Furosemide 40 Mg/4 Ml Vial) 40 mg IV BID17 AZEEM Stop: 06/30/24 18:29 Last Admin: 06/01/24 09:00 Dose: 40 mg Glucagon (Glucagon For Inj 1 Mg Vial) 1 mg SQ UD PRN; Protocol PRN Reason: Hypoglycemia Protocol Stop: 06/30/24 15:24 Glucose (Glucose 40% Gel 15 Gm Tube) 15 - 30 gm PO UD PRN; Protocol PRN Reason: Hypoglycemia Protocol Stop: 06/30/24 15:24 Glucose (Glucose 10 Tab/Tube) 4 - 8 tab PO UD PRN; Protocol PRN Reason: Hypoglycemia Protocol Stop: 06/30/24 15:24 Heparin Sodium/Dextrose (Heparin 50835 Unit/500 Ml D5w) 25,000 units in 500 mls @ 17 mls/hr IV .Q24H [facility]; Protocol Stop: 06/30/24 15:44 Last Titration: 06/01/24 08:56 Dose: 850 units/hr, 17 mls/hr Insulin Aspart (Insulin Aspart Per Unit Charge) 0 units SC ACHS [facility] Stop: 06/30/24 16:29 Last Admin: 06/01/24 08:22 Dose: 10 units Insulin Glargine (Lantus Per Unit Charge) 25 units SC BID AZEEM Stop: 07/01/24 08:59 Last Admin: 06/01/24 08:22 Dose: 25 units Losartan Potassium (Losartan Potassium 50 Mg Tab) 50 mg PO QAM AZEEM Stop: 07/01/24 08:59 Last Admin: 06/01/24 09:00 Dose: 50 mg Metoprolol Tartrate (Metoprolol Tartrate 50 Mg Tab) 50 mg PO BID [facility] Stop: 06/30/24 20:59 Last Admin: 06/01/24 08:59 Dose: 50 mg Miscellaneous (Carbohydrates For Hypoglycemia ) 15 - 30 gm PO UD PRN PRN Reason: Hypoglycemia Protocol Stop: 06/30/24 15:24 Miscellaneous Information (Pharmacy Glycemic Mgmt Consult) 1 each N/A UD PRN PRN Reason: Consult Stop: 06/30/24 15:24 Nitroglycerin (Nitroglycerin Sl 0.4 Mg/Tab Tab) 0.4 mg SL Q5M PRN PRN Reason: chest pain Stop: 06/30/24 15:19 Primidone (Primidone 50 Mg Tab) 100 mg PO BID AZEEM Stop: 06/30/24 20:59 Last Admin: 06/01/24 08:59 Dose: 100 mg PG Care Time/CCT Total # of Minutes Spent Total Time Spent with Patient: Total time spent is greater than 50% in coordination of care (as documented) at patient's floor/unit and/or counseling patient: Coding Level of Care Code 33872 INT INP/OBS CARE 3/75MIN Diagnoses Acute HFrEF (heart failure with reduced ejection fraction) I50.21 NSTEMI (non-ST elevated myocardial infarction) I21.4 CAD (coronary artery disease) I25.10 Hypertension I10 Dyslipidemia E78.5 History of coronary artery bypass graft Z95.1 S/P coronary artery stent placement Z95.5 Cardiomyopathy I42.9 Anemia D64.9 Pulmonary hypertension I27.20 Mitral regurgitation I34.0
[2024-06-01 10:17] LABS: Hematocrit (blood only) 28.3 % (37.0-47.0); Hemoglobin 9.4 g/dl (12.0-16.0); Mean Corpuscular Hemoglobin 28.8 pg (25.0-34.0); Mean Corpuscular Hgb Conc 33.2 g/dL (32.0-36.0); Mean Corpuscular Volume 86.8 fL (80.0-100.0); Mean Platelet Volume 9.5 fL (9.4-12.4); Platelet Count 400 K/uL (130-400); RDW Coefficient of Variation 14.1 % (11.5-14.5); RDW Standard Deviation 44.1 fL (36.4-46.3); Red Blood Count 3.26 M/uL (4.20-5.40); White Blood Count 11.41 K/ul (4.8-10.8)
--- NOTE | 2024-06-01 10:20 | Hospitalist Progress Note ---
Date of Service June 01, 2024 Assessment & Plan (1) CHF exacerbation: Plan: -lasix 40 IV BID - off bipap -echo -cardiology consulted -BNP >3000 -CXR with pulmonary edema (2) NSTEMI (non-ST elevated myocardial infarction): Plan: -troponin >160, now 439 -con't to trend -asa, plavix, metoprolol, atorvastatin -heparin drip (3) Diabetes: Plan: -RISS (4) Hypertension: Plan: -amlodapine -losartan -metoprolol (5) Hyperlipidemia: Plan: -atorvastatin Admission and Anticipated Discharge Date Admission Date: May 31, 2024 Subjective No events overnight. Pt states her breathing is much improved. No SOB, or chest pain. Review of Systems Review of Systems: SOB CONST: Negative for fever, body aches and chills. HENT: Negative for neck pain/stiffness, headache, congestion, sore throat, swelling. EYES: Negative for discharge/pain or vision changes. RESP: Negative for cough/hemoptysis and shortness of breath. CV: Negative chest pain, difficulty breathing, palpitations. ABD: Negative pain, nausea, vomiting. : Negative increase frequency, dysuria, blood in urine or stool. MUSC: Negative for muscle aches, edema. SKIN: Negative rash, lesions/sores. NEURO: Negative headache, dizziness, weakness. Physical Exam Physical Exam: GENERAL APPEARANCE NAD, activity normal for age, well developed/ well nourished, no cyanosis, pallor, or diaphoresis. EYES lids/conjunctiva normal. EARS/NOSE/THROAT Mucous membranes moist, nares normal, lips/teeth normal uvula midline without oral pharyngeal erythema, exudate or swelling TMs normal bilaterally. No lymphangitis/lymphedema. HEAD/NECK normocephalic atraumatic, no facial trauma, neck is supple. Bipap in place RESPIRATORY respiratory effort normal, speaks in full sentences, no tripod position, no accessory muscle use. Lungs clear to auscultation without rhonchi, wheezes, rales CARDIAC Regular rate and rhythm, no edema. ABDOMINAL Soft, ND/NT. No evidence of fluid wave. No pulsatile masses on exam, rebound tenderness, Blanca sign or pain over Mcburney's point. MUSCLES/EXTREMITIES No abnormal range of motion, no swelling. SKIN Warm, pink and dry. No rashes, dermatoses, petechiae or lesions. NEUROLOGICAL Speech is clear and appropriate. Normal level of consciousness. Gait and coordination are normal. 5/5 strength in all extremities. PSYCH Normal mood and affect. Judgement/competence is appropriate Results & Data Results & Data Vital Signs (Past 12 Hours) Vital Signs Temp Pulse Pulse Resp BP Pulse Ox O2 Del Method 06/01/24 07:03 36.4 C L 73 18 117/72 99 Nasal Cannula 06/01/24 05:31 69 06/01/24 03:38 36.7 C 83 16 117/71 98 Nasal Cannula 05/31/24 22:36 36.8 C 80 18 116/74 94 Nasal Cannula 05/31/24 21:50 71 O2 Flow Rate 06/01/24 07:03 2 06/01/24 05:31 06/01/24 03:38 05/31/24 22:36 05/31/24 21:50 PG Care Time/CCT Total # of Minutes Spent Total Time Spent with Patient: Total time spent is greater than 50% in coordination of care (as documented) at patient's floor/unit and/or counseling patient: Coding Level of Care Code 42216 SUB INP/OBS CARE 2/35MIN Diagnoses CHF exacerbation I50.9 NSTEMI (non-ST elevated myocardial infarction) I21.4 Diabetes E11.9 Hypertension I10 Hyperlipidemia E78.5
[2024-06-01 10:30] LABS: BUN Creatinine Ratio 19.8 (10-20); Calcium 9.1 mg/dl (8.6-10.3); Creatinine Clr Calc Pharmacy 38.4 ml/min; Potassium 4.2 mmol/L (3.5-5.1)
--- NOTE | 2024-06-01 10:33 | XCELERA ---
[id number]
--- NOTE | 2024-06-01 13:59 | Pharmacy Report ---
Pharmacy Glycemic Short Note 2 - Date of Service June 01, 2024 - Glycemic Short BSG Results (Last 24 hours): 05/31/24 05/31/24 06/01/24 14:13 18:36 07:02 Glucose 283 H POC Glucose 212 H 161 H 06/01/24 06/01/24 09:59 11:24 Glucose 249 H POC Glucose 202 H OUTPATIENT ANTIDIABETIC REGIMEN: * NPH insulin 48 units QAM and 44 units QPM * Regular insulin 30 units BID * metformin 1000mg po BID HbA1c: 10.2% on 05/26/24 ASSESSMENT: * 78 year old female admitted for CHF exacerbation with STEMI. Pharmacy was consulted for glycemic management while she is admitted. * BSG on admit was 212mg/dL. 30 units of Lantus SQ x 1 was ordered last evening and a bolus insulin regimen with tight parameters was also started (based on previous admission data). * Fasting BSG was 161mg/dL this morning. Lantus 25 units SQ BID was ordered to start this morning (based on previous admission data--pt require between 25 and 40 units of Lantus BID). * Bolus insulin parameters will be continued as ordered. PLAN FOR INPATIENT GLYCEMIC CONTROL: * Hold outpatient diabetes medications * Basal insulin * Lantus 30 units SQ x 1 kast evening, then 30units SQ BID * Bolus insulin * NovoLog per scale ACHS or Q6hrs while NPO * Goal Range: Low 110 mg/dL - High 140 mg/dL * Correction Factor: 15 mg/dL/unit * Nutritional / Prandial insulin per carb ratio of 1 unit per 5 grams CHO consumed
[2024-06-01 15:11] LABS: ANTI-Xa, UFH(UnfractionatedHep 0.59 IU/ml (0.3-0.7)
[2024-06-02 07:03] LABS: Hematocrit (blood only) 29.2 % (37.0-47.0); Hemoglobin 9.8 g/dl (12.0-16.0); Mean Corpuscular Hemoglobin 29.2 pg (25.0-34.0); Mean Corpuscular Hgb Conc 33.6 g/dL (32.0-36.0); Mean Corpuscular Volume 86.9 fL (80.0-100.0); Mean Platelet Volume 9.8 fL (9.4-12.4); Platelet Count 407 K/uL (130-400); RDW Coefficient of Variation 14.1 % (11.5-14.5); RDW Standard Deviation 43.9 fL (36.4-46.3); Red Blood Count 3.36 M/uL (4.20-5.40); White Blood Count 9.38 K/ul (4.8-10.8)
[2024-06-02 07:23] LABS: BUN Creatinine Ratio 19.2 (10-20); Calcium 9.2 mg/dl (8.6-10.3); Potassium 3.8 mmol/L (3.5-5.1)
[2024-06-02 07:43] LABS: ANTI-Xa, UFH(UnfractionatedHep 0.54 IU/ml (0.3-0.7)
[2024-06-02] MEDS: VALSARTAN/SACUBITRIL 26/24MG TAB PO SCH (08:23)
--- NOTE | 2024-06-02 09:38 | Hospitalist Progress Note ---
Date of Service June 02, 2024 Assessment & Plan (1) CHF exacerbation: Plan: -lasix 40 IV BID - off bipap -echo -cardiology consulted -BNP >3000 -CXR with pulmonary edema (2) NSTEMI (non-ST elevated myocardial infarction): Plan: -troponin >160, now 439 -con't to trend -asa, plavix, metoprolol, atorvastatin -heparin drip -cardiology to follow up for cath -h/h improved today with heme up to 9.8 -stool occult pending (3) Diabetes: Plan: -RISS (4) Hypertension: Plan: -amlodapine -losartan -metoprolol (5) Hyperlipidemia: Plan: -atorvastatin Admission and Anticipated Discharge Date Admission Date: May 31, 2024 Subjective No events overnight. Pt states her breathing is much improved. No SOB, or chest pain. Review of Systems Review of Systems: SOB CONST: Negative for fever, body aches and chills. HENT: Negative for neck pain/stiffness, headache, congestion, sore throat, swelling. EYES: Negative for discharge/pain or vision changes. RESP: Negative for cough/hemoptysis and shortness of breath. CV: Negative chest pain, difficulty breathing, palpitations. ABD: Negative pain, nausea, vomiting. : Negative increase frequency, dysuria, blood in urine or stool. MUSC: Negative for muscle aches, edema. SKIN: Negative rash, lesions/sores. NEURO: Negative headache, dizziness, weakness. Physical Exam Physical Exam: GENERAL APPEARANCE NAD, activity normal for age, well developed/ well nourished, no cyanosis, pallor, or diaphoresis. EYES lids/conjunctiva normal. EARS/NOSE/THROAT Mucous membranes moist, nares normal, lips/teeth normal uvula midline without oral pharyngeal erythema, exudate or swelling TMs normal bilaterally. No lymphangitis/lymphedema. HEAD/NECK normocephalic atraumatic, no facial trauma, neck is supple. Bipap in place RESPIRATORY respiratory effort normal, speaks in full sentences, no tripod position, no accessory muscle use. Lungs clear to auscultation without rhonchi, wheezes, rales CARDIAC Regular rate and rhythm, no edema. ABDOMINAL Soft, ND/NT. No evidence of fluid wave. No pulsatile masses on exam, rebound tenderness, Blanca sign or pain over Mcburney's point. MUSCLES/EXTREMITIES No abnormal range of motion, no swelling. SKIN Warm, pink and dry. No rashes, dermatoses, petechiae or lesions. NEUROLOGICAL Speech is clear and appropriate. Normal level of consciousness. Gait and coordination are normal. 5/5 strength in all extremities. PSYCH Normal mood and affect. Judgement/competence is appropriate Results & Data Results & Data Vital Signs (Past 12 Hours) Vital Signs Temp Pulse Pulse Resp BP BP Pulse Ox 06/02/24 07:59 36.6 C 73 18 137/88 95 06/02/24 02:32 36.6 C 67 16 126/81 97 06/01/24 22:35 36.5 C 73 16 134/78 95 06/01/24 22:14 74 O2 Del Method 06/02/24 07:59 Room Air 06/02/24 02:32 Room Air 06/01/24 22:35 Room Air 06/01/24 22:14 PG Care Time/CCT Total # of Minutes Spent Total Time Spent with Patient: Total time spent is greater than 50% in coordination of care (as documented) at patient's floor/unit and/or counseling patient: Coding Level of Care Code 48081 SUB INP/OBS CARE 235MIN Diagnoses CHF exacerbation I50.9 NSTEMI (non-ST elevated myocardial infarction) I21.4 Diabetes E11.9 Hypertension I10 Hyperlipidemia E78.5
--- NOTE | 2024-06-02 14:55 | Cardiology Progress Note ---
Date of Service June 02, 2024 Assessment & Plan (1) Acute HFrEF (heart failure with reduced ejection fraction): (2) NSTEMI (non-ST elevated myocardial infarction): (3) CAD (coronary artery disease): (4) Hypertension: (5) Dyslipidemia: (6) History of coronary artery bypass graft: (7) S/P coronary artery stent placement: (8) Cardiomyopathy: (9) Anemia: (10) Pulmonary hypertension: (11) Mitral regurgitation: Plan ASSESSMENT/PLAN: 1. Acute heart failure with reduced EF: LV systolic function has declined. Much better after initial diuresis but unfortunately fluid balance has not been monitored. Strict I's and O's recommended. Not yet back to baseline from a b reathing standpoint. Continue to diurese. Monitor renal function and electrolytes. NYHA class IV on presentation. Continue intravenous Lasix. Entresto started on 06/02/2024. Replace metoprolol to tartrate with metoprolol succinate at discharge. She was initially hyperkalemic and therefore holding off on mineralocorticoid receptor antagonist for now. Will consider SGLT2 inhibitor later this hospital stay. Strict I's and O's. Daily weights. Low- sodium diet. 2. NSTEMI: She did not present with angina. Elevated troponin may be due to demand ischemia in the setting of heart failure however she also had abnormal stress in the past calendar year and has documented CAD. With reduced LV systolic function and heart failure presentation, recommended coronary angiography. Anemia slightly better today. Heme checking stool. Continue antiplatelet therapy if no contraindication. Can continue heparin drip for now but would discontinue if her hemoglobin further drops significantly or for active bleeding. Cardiac rehab. Continue beta-marcela. 3. CAD s/p CABG and PCI LAD/Diag and Cx: No angina but elevated troponin and heart failure presentation with abnormal stress in the past calendar year. Antiplatelet therapy as above. If single antiplatelet therapy, continue Plavix as she has chronically been on. Continue beta-marcela. 4. Cardiomyopathy: LV systolic function has declined. Plan as above. She does not meet criteria for ICD for primary prevention. Adjust medical therapy for GDMT as noted. 5. Mitral regurgitation: Appears moderate on 06/01/2024 echo. Follow-up in the outpatient setting. 6. Pulmonary hypertension: Moderately elevated. Could be due to heart failure/hypervolemia. Can reevaluate in the future after diuresis. 7. Hypertension: Blood pressure well-controlled. 8. Dyslipidemia: Continue high intensity statin therapy. LDL has been well- controlled. 9. Anemia: Baseline hemoglobin seems to be in the 11 range. Her hemoglobin was 11 on 05/31/2024 but dropped to 9.4 on 06/01/2024 but recovered somewhat today. She described possible melena prehospital but no further bowel movement. Heme checking stool. Will defer to primary hospitalist service. Monitor for bleeding. 10. Disposition: Cardiology will continue to follow. Follow-up with Dr. Venegas on discharge. Heart failure program referral. Nonurgent PCI not available today and she would like to hold off to have diagnostic study until tomorrow where PCI could be warmed at the same time, if felt appropriate. N.p.o. after midnight. Plan of care communicated with primary hospitalist, Dr. Adams. Admission and Anticipated Discharge Date Admission Date: May 31, 2024 Subjective She was seen this afternoon. She was unaccompanied. She denies chest pain. She had 2 episodes of paroxysmal nocturnal dyspnea overnight and orthopnea. In general, her breathing is better today than yesterday but she is not yet back to baseline. She denies edema, syncope, near syncope, palpitations. She has not had any further black stool. She has not had a bowel movement in general. Physical Exam Physical Exam: Gen.: No acute distress. Alert and oriented. HEENT: Anicteric sclera. Neck: No JVD. Cardiac: Regular. Normal S1-S2. 1/6 systolic ejection murmur. Pulmonary: Clear to auscultation bilaterally without wheezes, rales, or rhonchi. Abdomen: Soft, nontender, nondistended, with normoactive bowel sounds. No bruits noted. Extremities: 2+ radial pulses bilaterally. 2+ posterior tibialis pulses bilaterally. No significant edema. No cyanosis. Results & Data Vital Signs (Past 12 Hours) Vital Signs Temp Pulse Resp BP Pulse Ox O2 Del Method 06/02/24 11:31 36.6 C 70 18 128/80 98 Room Air 06/02/24 09:53 Room Air 06/02/24 07:59 36.6 C 73 18 137/88 95 Room Air Intake & Output 05/31/24 06/01/24 06/02/24 06/03/24 05:59 06:59 06:59 06:59 Intake Total 164.333 / 164.333 Output Total Balance 164.333 / 164.333 Weight 161 lb 2.526 oz Laboratory Results Laboratory Results - last 24 hr 06/01/24 06/01/24 06/01/24 14:15 15:52 20:04 WBC RBC Hgb Hct MCV MCH MCHC RDW Std Deviation RDW Coeff of Sarina Plt Count MPV Heparin Anti-Xa, Unfract 0.59 Sodium Potassium Chloride Carbon Dioxide Anion Gap BUN Creatinine Est Cr Clr Drug Dosing eGFR BUN/Creatinine Ratio Glucose POC Glucose 142 H 155 H Calcium Troponin I High Sens 387.2 H* 06/02/24 06/02/24 06/02/24 06:24 07:17 11:19 WBC 9.38 RBC 3.36 L Hgb 9.8 L Hct 29.2 L MCV 86.9 MCH 29.2 MCHC 33.6 RDW Std Deviation 43.9 RDW Coeff of Sarina 14.1 Plt Count 407 H MPV 9.8 Heparin Anti-Xa, Unfract 0.54 Sodium 136 Potassium 3.8 Chloride 100 Carbon Dioxide 29 Anion Gap 7 BUN 23 Creatinine 1.20 Est Cr Clr Drug Dosing 35.0 eGFR 45.76 BUN/Creatinine Ratio 19.2 Glucose 88 POC Glucose 97 146 H Calcium 9.2 Troponin I High Sens Diagnostic Findings Labs reviewed and notable for normal potassium, stable renal function, Anemia but slightly improved from yesterday, improved leukocytosis. Telemetry personally reviewed: Sinus rhythm. No arrhythmia. Medications Administered Current Inpatient Medications Acetaminophen (Acetaminophen 325 Mg Tab) 650 mg PO Q4H PRN PRN Reason: pain/fever Stop: 06/30/24 15:24 Albuterol (Albut/Ipratrop 3mg/0.5mg Neb 3 Ml Vial) 3 ml INH Q4H PRN; Protocol PRN Reason: wheezing Stop: 06/30/24 15:19 Amlodipine Besylate (Amlodipine Besylate 5 Mg Tab) 5 mg PO QAM [facility] Stop: 07/01/24 08:59 Last Admin: 06/02/24 08:22 Dose: 5 mg Anastrozole (Anastrozole 1 Mg Tab) 1 mg PO QAM [facility] Stop: 07/01/24 08:59 Last Admin: 06/02/24 08:22 Dose: 1 mg Aspirin (Aspirin 81 Mg Ectab) 81 mg PO DAILY [facility] Stop: 06/30/24 16:44 Last Admin: 06/02/24 08:22 Dose: 81 mg Atorvastatin Calcium (Atorvastatin 40 Mg Tab) 80 mg PO QPM [facility] Stop: 06/30/24 20:59 Last Admin: 06/01/24 20:39 Dose: 80 mg Clopidogrel Bisulfate (Clopidogrel Bisulfate 75 Mg Tab) 75 mg PO DAILY [facility] Stop: 07/01/24 08:59 Last Admin: 06/02/24 08:22 Dose: 75 mg Dextrose (Dextrose 50% 50 Ml Syringe) 25 - 50 ml IV UD PRN; Protocol PRN Reason: Hypoglycemia Protocol Stop: 06/30/24 15:24 Fluoxetine HCl (Fluoxetine Hcl 20 Mg Cap) 20 mg PO QAM [facility] Stop: 07/01/24 08:59 Last Admin: 06/02/24 08:22 Dose: 20 mg Furosemide (Furosemide 40 Mg/4 Ml Vial) 40 mg IV BID17 [facility] Stop: 06/30/24 18:29 Last Admin: 06/02/24 08:22 Dose: 40 mg Glucagon (Glucagon For Inj 1 Mg Vial) 1 mg SQ UD PRN; Protocol PRN Reason: Hypoglycemia Protocol Stop: 06/30/24 15:24 Glucose (Glucose 40% Gel 15 Gm Tube) 15 - 30 gm PO UD PRN; Protocol PRN Reason: Hypoglycemia Protocol Stop: 06/30/24 15:24 Glucose (Glucose 10 Tab/Tube) 4 - 8 tab PO UD PRN; Protocol PRN Reason: Hypoglycemia Protocol Stop: 06/30/24 15:24 Heparin Sodium/Dextrose (Heparin 22530 Unit/500 Ml D5w) 25,000 units in 500 mls @ 17 mls/hr IV .Q24H [facility]; Protocol Stop: 06/30/24 15:44 Last Titration: 06/02/24 07:12 Dose: 850 units/hr, 17 mls/hr Insulin Aspart (Insulin Aspart Per Unit Charge) 0 units SC ACHS [facility] Stop: 06/30/24 16:29 Last Admin: 06/02/24 12:40 Dose: 1 units Insulin Glargine (Lantus Per Unit Charge) 0 units SC HS [facility]; Protocol Stop: 07/02/24 20:59 Metoprolol Tartrate (Metoprolol Tartrate 50 Mg Tab) 50 mg PO BID [facility] Stop: 06/30/24 20:59 Last Admin: 06/02/24 08:23 Dose: 50 mg Miscellaneous (Carbohydrates For Hypoglycemia ) 15 - 30 gm PO UD PRN PRN Reason: Hypoglycemia Protocol Stop: 06/30/24 15:24 Miscellaneous Information (Pharmacy Glycemic Mgmt Consult) 1 each N/A UD PRN PRN Reason: Consult Stop: 06/30/24 15:24 Nitroglycerin (Nitroglycerin Sl 0.4 Mg/Tab Tab) 0.4 mg SL Q5M PRN PRN Reason: chest pain Stop: 06/30/24 15:19 Primidone (Primidone 50 Mg Tab) 100 mg PO BID [facility] Stop: 06/30/24 20:59 Last Admin: 06/02/24 08:23 Dose: 100 mg Sacubitril/Valsartan (Valsartan/Sacubitril 26/24mg Tab) 1 tab PO BID [facility] Stop: 07/02/24 08:59 Last Admin: 06/02/24 08:23 Dose: 1 tab PG Care Time/CCT Total # of Minutes Spent Total Time Spent with Patient: Total time spent is greater than 50% in coordination of care (as documented) at patient's floor/unit and/or counseling patient: Coding Level of Care Code 81866 SUB INP/OBS CARE 3/50MIN Diagnoses Acute HFrEF (heart failure with reduced ejection fraction) I50.21 NSTEMI (non-ST elevated myocardial infarction) I21.4 CAD (coronary artery disease) I25.10 Hypertension I10 Dyslipidemia E78.5 History of coronary artery bypass graft Z95.1 S/P coronary artery stent placement Z95.5 Cardiomyopathy I42.9 Anemia D64.9 Pulmonary hypertension I27.20 Mitral regurgitation I34.0
[2024-06-02] MEDS: LANTUS PER UNIT CHARGE SC SCH (21:43)
--- NOTE | 2024-06-03 05:43 | Electrocardiogram Report ---
Test Reason : Blood Pressure : */* mmHG Vent. Rate : 70 BPM Atrial Rate : 70 BPM P-R Int : 144 ms QRS Dur : 78 ms QT Int : 442 ms P-R-T Axes : 53 -9 157 degrees QTcB Int : 477 ms Normal sinus rhythm with sinus arrhythmia Anteroseptal infarct (cited on or before 31-May-2024) Abnormal ECG When compared with ECG of 31-May-2024 14:09, Vent. rate has decreased by 35 bpm T wave inversion now evident in Anterior leads Confirmed by Josr Rodrigues ([id number]) on 06/03/2024 5:43:08 AM Referred By: REFERRED SELF Confirmed By: Josr Rodrigues
[2024-06-03] MEDS ORDERED: Nursing to Pharmacy Communication SCH (06:00)
[2024-06-03] MEDS: INSULIN ASPART PER UNIT CHARGE SC SCH ×2 (06:09→17:32)
[2024-06-03 07:46] LABS: ANTI-Xa, UFH(UnfractionatedHep 0.61 IU/ml (0.3-0.7)
[2024-06-03 07:52] LABS: BUN Creatinine Ratio 18.6 (10-20); Calcium 9.2 mg/dl (8.6-10.3); Potassium 3.6 mmol/L (3.5-5.1)
--- NOTE | 2024-06-03 09:07 | Hospitalist Progress Note ---
Date of Service June 03, 2024 Assessment & Plan (1) CHF exacerbation: Plan: -lasix 40 IV BID - off bipap -echo -cardiology consulted -BNP >3000 -CXR with pulmonary edema (2) NSTEMI (non-ST elevated myocardial infarction): Plan: -troponin >160, now 439 -con't to trend -asa, plavix, metoprolol, atorvastatin -heparin drip -cardiology planned for cath today / -h/h improved today with heme up to 9.8 -stool occult pending (3) Diabetes: Plan: -RISS (4) Hypertension: Plan: -amlodapine -losartan -metoprolol (5) Hyperlipidemia: Plan: -atorvastatin Admission and Anticipated Discharge Date Admission Date: May 31, 2024 Subjective No events overnight. Pt to have PCI this am. Review of Systems Review of Systems: SOB CONST: Negative for fever, body aches and chills. HENT: Negative for neck pain/stiffness, headache, congestion, sore throat, swelling. EYES: Negative for discharge/pain or vision changes. RESP: Negative for cough/hemoptysis and shortness of breath. CV: Negative chest pain, difficulty breathing, palpitations. ABD: Negative pain, nausea, vomiting. : Negative increase frequency, dysuria, blood in urine or stool. MUSC: Negative for muscle aches, edema. SKIN: Negative rash, lesions/sores. NEURO: Negative headache, dizziness, weakness. Physical Exam Physical Exam: GENERAL APPEARANCE NAD, activity normal for age, well developed/ well nourished, no cyanosis, pallor, or diaphoresis. EYES lids/conjunctiva normal. EARS/NOSE/THROAT Mucous membranes moist, nares normal, lips/teeth normal uvula midline without oral pharyngeal erythema, exudate or swelling TMs normal bilaterally. No lymphangitis/lymphedema. HEAD/NECK normocephalic atraumatic, no facial trauma, neck is supple. Bipap in place RESPIRATORY respiratory effort normal, speaks in full sentences, no tripod position, no accessory muscle use. Lungs clear to auscultation without rhonchi, wheezes, rales CARDIAC Regular rate and rhythm, no edema. ABDOMINAL Soft, ND/NT. No evidence of fluid wave. No pulsatile masses on exam, rebound tenderness, Blanca sign or pain over Mcburney's point. MUSCLES/EXTREMITIES No abnormal range of motion, no swelling. SKIN Warm, pink and dry. No rashes, dermatoses, petechiae or lesions. NEUROLOGICAL Speech is clear and appropriate. Normal level of consciousness. Gait and coordination are normal. 5/5 strength in all extremities. PSYCH Normal mood and affect. Judgement/competence is appropriate Results & Data Results & Data Vital Signs (Past 12 Hours) Vital Signs Temp Pulse Pulse Resp BP BP Pulse Ox 06/03/24 08:33 80 14 137/89 96 06/03/24 07:15 36.7 C 72 18 120/77 94 06/03/24 07:09 70 06/03/24 03:03 36.7 C 66 18 122/69 96 06/02/24 23:12 36.9 C 66 19 126/73 96 06/02/24 21:44 88 O2 Del Method 06/03/24 08:33 Room Air 06/03/24 07:15 Room Air 06/03/24 07:09 06/03/24 03:03 Room Air 06/02/24 23:12 Room Air 06/02/24 21:44 PG Care Time/CCT Total # of Minutes Spent Total Time Spent with Patient: Total time spent is greater than 50% in coordination of care (as documented) at patient's floor/unit and/or counseling patient: Coding Level of Care Code 87618 SUB INP/OBS CARE 2/35MIN Diagnoses CHF exacerbation I50.9 NSTEMI (non-ST elevated myocardial infarction) I21.4 Diabetes E11.9 Hypertension I10 Hyperlipidemia E78.5
--- NOTE | 2024-06-03 09:23 | Pre Anesthesia Assessment ---
Date of Service June 03, 2024 Pre Sedation Assessment Vital Signs Temp Pulse Pulse Resp BP BP Pulse Ox 06/03/24 08:33 80 14 137/89 96 06/03/24 07:15 36.7 C 72 18 120/77 94 06/03/24 07:09 70 06/03/24 03:03 36.7 C 66 18 122/69 96 06/02/24 23:12 36.9 C 66 19 126/73 96 06/02/24 21:44 88 06/02/24 19:35 36.8 C 71 19 122/77 98 06/02/24 16:18 36.5 C 70 18 122/69 96 06/02/24 11:31 36.6 C 70 18 128/80 98 06/02/24 09:53 O2 Del Method 06/03/24 08:33 Room Air 06/03/24 07:15 Room Air 06/03/24 07:09 06/03/24 03:03 Room Air 06/02/24 23:12 Room Air 06/02/24 21:44 06/02/24 19:35 Room Air 06/02/24 16:18 Room Air 06/02/24 11:31 Room Air 06/02/24 09:53 Room Air Cardiovascular + murmur Respiratory normal respiratory effort, lungs clear to auscultation Pre-Sedation Airway Assessment Smoking Status: Former smoker Short, Thick Neck: No Thyromental Distance: > or= 3.5 Finger Breadths Oral Cavity: + WNL Mallampati Class: III ASA: ASA3 NPO Status Date of Last Intake of Fluids: 06/02/24 Time of Last Intake of Fluids: 22:30 Last Oral Intake of Fluids Comment: otherwise sips with meds Date of Last Intake of Solid Food: 06/02/24 Time of Last Intake of Solid Foods: 22:30 Procedure Planning Contraindications for Sedation: none Current Medications Reviewed: Yes Notes The planned sedation has been discussed with the patient. Informed Consent was obtained. I have identified the patient, determined the appropriateness of sedation and have assessed the patient immediately prior to the procedure. All medicine(s) and interventions are by my order.
[2024-06-03] MEDS: NITROGLYCERIN/D5W 100MCG/ML 20ML SYR ONE (09:24)
[2024-06-03] MEDS: niCARdipine 2,000 MCG/20 ML SYR ONE (09:24)
[2024-06-03 10:04] LABS: iSTAT Arterial Blood Gas HCO3 31 meg/L (19-24); iSTAT Arterial Blood Gas pCO2 44 mmHg (35-46); iSTAT Arterial Blood Gas pH 7.46 (7.35-7.45); iSTAT Arterial Blood Gas pO2 31 mmHg (80-95); iSTAT Carbon Dioxide 32 mmol/L (24-31); iSTAT Hematocrit 30 % (37-47); iSTAT Hemoglobin 10.2 g/dl (12.0-16.0); iSTAT Potassium 3.8 mmol/L (3.3-5.0); iSTAT Sodium 136 mmol/L (135-144)
[2024-06-03] MEDS: IODIXANOL (VISIPAQUE) 320 MG/ML 100ML IV ONE (10:33)
[2024-06-03] MEDS: HEPARIN (PORCINE) 1000 UNIT/ML 10 ML (CATH LAB USE ONLY) ONE (10:33)
[2024-06-03] MEDS: MIDAZOLAM HCL 1 MG/ML 2ML VIAL ONE ×2 (10:33→10:34)
[2024-06-03] MEDS: fentaNYL citrate PF 100 MCG/2 ML VIAL ONE (10:33)
--- NOTE | 2024-06-03 10:36 | Post Anesthesia Assessment ---
Date of Service June 03, 2024 Post Sedation Assessment Vital Signs Temp Pulse Pulse Resp BP BP Pulse Ox 06/03/24 11:41 36.5 C 69 16 139/80 98 06/03/24 11:15 66 18 131/53 L 98 06/03/24 11:00 69 18 104/67 98 06/03/24 10:45 71 18 117/59 L 93 06/03/24 09:44 06/03/24 08:33 80 14 137/89 96 06/03/24 07:15 36.7 C 72 18 120/77 94 06/03/24 07:09 70 06/03/24 03:03 36.7 C 66 18 122/69 96 06/02/24 23:12 36.9 C 66 19 126/73 96 06/02/24 21:44 88 06/02/24 19:35 36.8 C 71 19 122/77 98 06/02/24 16:18 36.5 C 70 18 122/69 96 O2 Del Method 06/03/24 11:41 Room Air 06/03/24 11:15 Room Air 06/03/24 11:00 Room Air 06/03/24 10:45 Room Air 06/03/24 09:44 Room Air 06/03/24 08:33 Room Air 06/03/24 07:15 Room Air 06/03/24 07:09 06/03/24 03:03 Room Air 06/02/24 23:12 Room Air 06/02/24 21:44 06/02/24 19:35 Room Air 06/02/24 16:18 Room Air Recovery Score Activity: Moves 4 extremities Respiration: Deep Breath/Cough Circulation: +/-20% PreAnes Value Consciousness: Fully Awake Oxygen Saturation: > 92% On Room Air Discharge Sedation Level of Care: Fast Track Phase II Post Sedation Plan On clinical assessment, the patient appears to have tolerated the sedation without complications. Patient is recovering as anticipated. Patient will continue to be monitored by nursing and may be discharged when sedation discharge criteria are met per below protocol. Upon Completions of procedure up to 15 minutes continue every 5 minute vital signs and the P.A.R. score; then discharge to a Phase I or Fast Track to Phase II per the following guidelines: * Discharge Patient to appropriate Phase II area if PAR is 8 or greater or return to pre- procedure baseline. The post - procedure orders will be as directed. * If PAR score is less than 8 or not return to pre-procedure baseline then patient will follow Phase I monitoring till PAR is reached for Phase II. The Phase I may be done in procedure room or may call to secure a Phase I area. * If naloxone or flumazenil are used for reversal, hold in Phase I for continued monitoring from when last reversal dose was given for a minimum of 60 minutes or longer pending the nurse and/or physician discretion of patient condition before discharge to Phase II. Please call the Sedation Physician to re-evaluate and complete post-note for discharge to Phase II area. Do NOT discharge from procedure sedation or Phase 1 until post- sedation evaluation note is complete by procedure /sedation MD Sedation Discharge Instructions to be given to the patient at discharge to home.
[2024-06-03 10:41] LABS: iSTAT Arterial Blood Gas HCO3 26 meg/L (19-24); iSTAT Arterial Blood Gas pCO2 37 mmHg (35-46); iSTAT Arterial Blood Gas pH 7.45 (7.35-7.45); iSTAT Arterial Blood Gas pO2 89 mmHg (80-95); iSTAT Carbon Dioxide 27 mmol/L (24-31); iSTAT Hematocrit 25 % (37-47); iSTAT Hemoglobin 8.5 g/dl (12.0-16.0); iSTAT Potassium 3.2 mmol/L (3.3-5.0); iSTAT Sodium 139 mmol/L (135-144)
--- NOTE | 2024-06-03 10:41 | Cardiac Catheterization ---
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 Cardiac Status Clinical evaluation leading to the procedure CAD Presenation: No Sxs, No angina Anginal Classification: No Symptoms Heart Failure: NYHA Class: CCS IV Cardiogenic Shock within 24 Hours: No Cardiac Arrest within 24 Hours: No Imaging Studies Past 6 Months: Yes Stress Studies Past 6 Months: No Coronary Anatomy Dominant: Right Diagnostic Physicians Name: Josr Rodrigues MD Status: Elective Closure Device Percutaneous Entry Location: Radial Recommendations: Management Recommendatons Cardiac Cath Procedure Full Procedure Date June 03, 2024 Pre-Procedure Diagnosis Pre-Procedure Diagnosis: Non STEMI, CHF and Cardiomyopathy AUC Score AUC Score: 8 Post-Procedure Diagnosis Post-Procedure Diagnosis: Severe CAD Procedure(s) Performed Procedure(s) Performed: Coronary Angiography, Left Heart Cath, Right Heart Cath and Bypass Graft Angiography Storage Worker Josr Rodrigues MD Tail Dogger(s) Robbi Estimated Blood Loss Estimated Blood Loss: <25 ml Medication(s) Medication(s): Fentanyl, Heparin, Lidocaine 1%, Nicardipine and Versed Summary of Findings Procedures: 1. Coronary angiography 2. Coronary artery bypass graft angiography 3. Left heart catheterization 4. Right heart catheterization 5. Moderate sedation Indication: Mrs. Xie is a pleasant 78-year-old female with a history significant for CAD s/p CABG x 3 (SVG x 2 occluded, MCCORMACK to LAD), LAD/ diag and circumflex PCI, who presented with acute heart failure with reduced EF, new cardiomyopathy, and elevated high-sensitivity troponin. She had an abnormal dobutamine stress echo in 2023. Coronary angiography: 1. Left main: No significant CAD. 2. Left anterior descending: Ostial LAD 50%. Proximal LAD stent occluded at distal margin. 3. Circumflex: Proximal circumflex 60%. Mid circumflex diffuse 50%. Early distal circumflex stent patent. Distal circumflex 80% at distal stent margin. Vessel extends distally is a very small caliber vessel and severely diseased diffusely. Small to medium caliber OM1 ostial/proximal 90%. CHASITY-3 flow. Small OM 2 ostial 98% with CHASITY II flow. 4. Right coronary artery: RCA is dominant. Proximal RCA 50%. Mid and distal RCA diffuse mild CAD. PL and PDA without significant CAD. Calcification noted throughout the RCA. Right to left collaterals. Coronary artery bypass graft angiography: 1. MCCORMACK to LAD: Patent. 2. Previous SVG bypass graft x 2 have been documented as occluded. Additional angiography was not attempted. Left heart catheterization: 1. Left ventriculography was not performed. 2. No significant aortic stenosis. 3. LVEDP 13 mmHg. Right heart catheterization: 1. Pulmonary capillary wedge pressure: V wave 14 mmHg; mean 13 mmHg. 2. Pulmonary arterial pressure: 32/7 mmHg with a mean of 15 mmHg. 3. Right ventricular pressure: 31/8 with RVEDP 10 mmHg. 4. Right atrial pressure: A wave 11; V wave 9; mean 8 mmHg. 5. Cardiac output via thermodilution was 3.15 L/min with a cardiac index of 1.82 L/min/m. 6. PVR 0.63 Wood units. Moderate sedation: 1. Sedation start time: 9:47 AM 2. Sedation end time: 10:36 AM Procedural notes: 1. Coronary angiography was performed via the left radial artery without known complication. 2. A 6 [place] Glidesheath was placed in the left radial artery over a wire after initial stick with access needle. The Glidesheath did not fully advance due to discomfort and difficulty further advancing the sheath. This sheath was advanced sufficiently to perform the case. 3. Due to left radial artery spasm, there was difficulty maneuvering the 4 [place] JR diagnostic catheter to successfully engage the MCCORMACK. A subselective image was taken, demonstrating patency. 4. Left main was engaged with 4 [place] JL 3.5 diagnostic catheter. 5. Right heart cath was performed via right brachiocephalic vein without known complication. Impression: 1. Severe multivessel CAD including LAD with occluded proximal LAD stent, and otherwise severe CAD of the circumflex, and smaller caliber OM vessels. 2. Mild to moderate nonobstructive CAD involving RCA. 3. Right to left collaterals. 4. Patent MCCORMACK to LAD. 5. Previously documented occluded SVG vein grafts x 2. 6. Nonelevated left and right sided filling pressures. 7. Normal pulmonary artery pressure. 8. Reduced cardiac output. 9. No significant aortic stenosis. Plan: 1. Goal-directed medical therapy for heart failure with reduced EF. 2. Ongoing risk factor modification. 3. Cardiac rehab. 4. Images were reviewed with interventional cardiology. Medical therapy recommended. Hemodynamics Rest Ao:: 134/60 Final Ao: 123/56 LV: 125/6/13 Recommendations Recommendations: Management Recommendatons Specimens Specimens: None Radiation Exposure (mGy) 635 mGy. Fluoro time 10.6 min. Contrast (mls) 60 ml Procedural Complication(s) None Disposition PCU I attest to the content of the Intraoperative Record and any orders documented therein. Any exceptions are noted below. [facility] Card Cath Procedure Codes Cardiac Catheterization Procedure 1: Cardiovascular Cath Procedures: 74969 Coronaries & RHC &LHC&Grafts/IM (arterial & venous) Moderate Sedation Procedure 1: Sedation/Anesthesia: 90429 Mod Sedation by the same physician;Init15 Min Child Age 5 & Up Procedure 2: Sedation/Anesthesia: 93055 Mod Sedation by the same physician; Ea [id number] Minutes Procedure 3: Sedation/Anesthesia: 41505 Mod Sedation by the same physician; Ea [id number] Minutes Procedure 4: Sedation/Anesthesia: 34586 Mod Sedation by the same physician; Ea [id number] Minutes PG Care Time/CCT Total # of Minutes Spent Total Time Spent with Patient: Total time spent is greater than 50% in coordination of care (as documented) at patient's floor/unit and/or counseling patient:
--- NOTE | 2024-06-03 11:52 | Cardiology Progress Note ---
Date of Service June 03, 2024 Assessment & Plan (1) Acute HFrEF (heart failure with reduced ejection fraction): (2) NSTEMI (non-ST elevated myocardial infarction): (3) CAD (coronary artery disease): (4) Hypertension: (5) Dyslipidemia: (6) History of coronary artery bypass graft: (7) S/P coronary artery stent placement: (8) Cardiomyopathy: (9) Anemia: (10) Pulmonary hypertension: (11) Mitral regurgitation: Plan ASSESSMENT/PLAN: 1. Acute heart failure with reduced EF: LV systolic function has declined. Fluid balance has not been calculated but she appears much better clinically and no longer appears hypervolemic. Filling pressures noted on cardiac cath, are not significantly elevated. Discontinue intravenous Lasix. Initiate Lasix 40 mg once daily tomorrow. Monitor renal function and electrolytes. NYHA class IV on presentation, since improved. Entresto started on 06/02/2024. Replace metoprolol to tartrate with metoprolol succinate at discharge. She was initially hyperkalemic and therefore holding off on mineralocorticoid receptor antagonist for now. No SGLT2 inhibitor at this time given recent UTI. Strict I's and O's. Daily weights. Low-sodium diet. 2. NSTEMI: She did not present with angina. Continue antiplatelet therapy if no contraindication. Can discontinue heparin drip. Cardiac rehab. Continue beta- marcela. 3. CAD s/p CABG and PCI LAD/Diag and Cx: Has severe multivessel CAD noted on 06/03/2024 cath with prior LAD stent now occluded and also severe CAD involving the circumflex system. Medical therapy recommended by interventional cardiology. Could likely consider PCI of circumflex for angina. Given history of gastric ulcer and black stools on presentation, would discontinue aspirin and continue Plavix which she has been on chronically. Continue beta-marcela. Intensity statin therapy. 4. Cardiomyopathy: LV systolic function has declined. Plan as above. She does not meet criteria for ICD for primary prevention. Replace metoprolol tartrate with metoprolol succinate. Entresto initiated on 06/02/2024 and can be further adjusted in the outpatient setting. 5. Mitral regurgitation: Appears moderate on 06/01/2024 echo. Follow-up in the outpatient setting. 6. Pulmonary hypertension: Moderately elevated on initial echo this hospital stay but PA pressure normal on cath on 06/03/2024 after diuresis. 7. Hypertension: Blood pressure well-controlled. 8. Dyslipidemia: Continue high intensity statin therapy. LDL has been well- controlled. 9. Anemia: Baseline hemoglobin seems to be in the 11 range. Her hemoglobin was 11 on 05/31/2024 but dropped to 9.4 on 06/01/2024 but has since slightly improved. She described possible melena prehospital but none further. Heme checking stool. Will defer to primary hospitalist service. Monitor for bleeding. 10. Disposition: Cardiology will continue to follow. Follow-up with Dr. Venegas on discharge. Heart failure program referral. Plan of care communicated with primary hospitalist, Dr. Adams. Possible discharge tomorrow. Admission and Anticipated Discharge Date Admission Date: May 31, 2024 Subjective She underwent cardiac catheterization today. She denies chest pain, shortness of breath, syncope, near syncope, palpitations, edema, or bleeding. She did not notice orthopnea overnight, but she admits that she did not lay flat. Physical Exam Physical Exam: Gen.: No acute distress. Alert and oriented. HEENT: Anicteric sclera. Neck: No JVD. No hepatojugular reflux. Cardiac: Regular. Normal S1-S2. 1/6 systolic ejection murmur. Pulmonary: Clear to auscultation bilaterally without wheezes, rales, or rhonchi. Abdomen: Soft, nontender, nondistended, with normoactive bowel sounds. No bruits noted. Extremities: 2+ radial pulses bilaterally. 2+ posterior tibialis pulses bilaterally. No significant edema. No cyanosis. Results & Data Vital Signs (Past 12 Hours) Vital Signs Temp Pulse Pulse Resp BP BP Pulse Ox 06/03/24 11:41 36.5 C 69 16 139/80 98 06/03/24 11:15 66 18 131/53 L 98 06/03/24 11:00 69 18 104/67 98 06/03/24 10:45 71 18 117/59 L 93 06/03/24 09:44 06/03/24 08:33 80 14 137/89 96 06/03/24 07:15 36.7 C 72 18 120/77 94 06/03/24 07:09 70 06/03/24 03:03 36.7 C 66 18 122/69 96 O2 Del Method 06/03/24 11:41 Room Air 06/03/24 11:15 Room Air 06/03/24 11:00 Room Air 06/03/24 10:45 Room Air 06/03/24 09:44 Room Air 06/03/24 08:33 Room Air 06/03/24 07:15 Room Air 06/03/24 07:09 06/03/24 03:03 Room Air Intake & Output 06/01/24 06/02/24 06/03/24 06/04/24 06:59 06:59 06:59 06:59 Intake Total 610.833 / 610.833 181.617 / 181.617 Output Total Balance 610.833 / 610.833 181.617 / 181.617 Weight 161 lb 2.526 oz 159 lb 13.362 oz Laboratory Results Laboratory Results - last 24 hr 06/02/24 06/02/24 06/03/24 15:53 20:27 06:01 POC Hgb POC Hct Heparin Anti-Xa, Unfract POC pH POC pCO2 POC pO2 POC HCO3 POC Total CO2 POC Base Excess POC ABG O2 Sat POC Sodium Sodium POC Potassium Potassium Chloride Carbon Dioxide Anion Gap BUN Creatinine Est Cr Clr Drug Dosing eGFR BUN/Creatinine Ratio Glucose POC Glucose 238 H 148 H 151 H Calcium 06/03/24 06/03/24 06/03/24 06:18 09:52 10:29 POC Hgb 10.2 L 8.5 L POC Hct 30 L 25 L Heparin Anti-Xa, Unfract 0.61 POC pH 7.46 H 7.45 POC pCO2 44 37 POC pO2 31 L 89 POC HCO3 31 H 26 H POC Total CO2 32 H 27 POC Base Excess 7.0 H 2.0 H POC ABG O2 Sat 63.0 L 97.0 H POC Sodium 136 139 Sodium 137 POC Potassium 3.8 3.2 L Potassium 3.6 Chloride 98 Carbon Dioxide 30 Anion Gap 9 BUN 21 Creatinine 1.13 Est Cr Clr Drug Dosing 37.0 eGFR 49.18 BUN/Creatinine Ratio 18.6 Glucose 141 H POC Glucose Calcium 9.2 06/03/24 11:39 POC Hgb POC Hct Heparin Anti-Xa, Unfract POC pH POC pCO2 POC pO2 POC HCO3 POC Total CO2 POC Base Excess POC ABG O2 Sat POC Sodium Sodium POC Potassium Potassium Chloride Carbon Dioxide Anion Gap BUN Creatinine Est Cr Clr Drug Dosing eGFR BUN/Creatinine Ratio Glucose POC Glucose 274 H Calcium Diagnostic Findings Telemetry personally reviewed: Sinus rhythm. No arrhythmia. Labs reviewed and notable for stable renal function, normal potassium. Cardiac cath 06/03/2024: Coronary angiography: 1. Left main: No significant CAD. 2. Left anterior descending: Ostial LAD 50%. Proximal LAD stent occluded at distal margin. 3. Circumflex: Proximal circumflex 60%. Mid circumflex diffuse 50%. Early distal circumflex stent patent. Distal circumflex 80% at distal stent margin. Vessel extends distally is a very small caliber vessel and severely diseased diffusely. Small to medium caliber OM1 ostial/proximal 90%. CHASITY-3 flow. Small OM 2 ostial 98% with CHASITY II flow. 4. Right coronary artery: RCA is dominant. Proximal RCA 50%. Mid and distal RCA diffuse mild CAD. PL and PDA without significant CAD. Calcification noted throughout the RCA. Right to left collaterals. Coronary artery bypass graft angiography: 1. MCCORMACK to LAD: Patent. 2. Previous SVG bypass graft x 2 have been documented as occluded. Additional angiography was not attempted. Left heart catheterization: 1. Left ventriculography was not performed. 2. No significant aortic stenosis. 3. LVEDP 13 mmHg. Right heart catheterization: 1. Pulmonary capillary wedge pressure: V wave 14 mmHg; mean 13 mmHg. 2. Pulmonary arterial pressure: 32/7 mmHg with a mean of 15 mmHg. 3. Right ventricular pressure: 31/8 with RVEDP 10 mmHg. 4. Right atrial pressure: A wave 11; V wave 9; mean 8 mmHg. 5. Cardiac output via thermodilution was 3.15 L/min with a cardiac index of 1.82 L/min/m. 6. PVR 0.63 Wood units. Medications Administered Current Inpatient Medications Acetaminophen (Acetaminophen 325 Mg Tab) 650 mg PO Q4H PRN PRN Reason: pain/fever Stop: 06/30/24 15:24 Albuterol (Albut/Ipratrop 3mg/0.5mg Neb 3 Ml Vial) 3 ml INH Q4H PRN; Protocol PRN Reason: wheezing Stop: 06/30/24 15:19 Amlodipine Besylate (Amlodipine Besylate 5 Mg Tab) 5 mg PO QAM [facility] Stop: 07/01/24 08:59 Last Admin: 06/03/24 08:11 Dose: 5 mg Anastrozole (Anastrozole 1 Mg Tab) 1 mg PO QAM [facility] Stop: 07/01/24 08:59 Last Admin: 06/03/24 08:11 Dose: 1 mg Aspirin (Aspirin 81 Mg Ectab) 81 mg PO DAILY [facility] Stop: 06/30/24 16:44 Last Admin: 06/03/24 08:11 Dose: 81 mg Atorvastatin Calcium (Atorvastatin 40 Mg Tab) 80 mg PO QPM [facility] Stop: 06/30/24 20:59 Last Admin: 06/02/24 21:49 Dose: 80 mg Clopidogrel Bisulfate (Clopidogrel Bisulfate 75 Mg Tab) 75 mg PO DAILY [facility] Stop: 07/01/24 08:59 Last Admin: 06/03/24 08:12 Dose: 75 mg Dextrose (Dextrose 50% 50 Ml Syringe) 25 - 50 ml IV UD PRN; Protocol PRN Reason: Hypoglycemia Protocol Stop: 06/30/24 15:24 Fluoxetine HCl (Fluoxetine Hcl 20 Mg Cap) 20 mg PO QAM [facility] Stop: 07/01/24 08:59 Last Admin: 06/03/24 08:11 Dose: 20 mg Furosemide (Furosemide 40 Mg/4 Ml Vial) 40 mg IV [id number] [facility] Stop: 06/30/24 18:29 Last Admin: 06/03/24 08:12 Dose: 40 mg Glucagon (Glucagon For Inj 1 Mg Vial) 1 mg SQ UD PRN; Protocol PRN Reason: Hypoglycemia Protocol Stop: 06/30/24 15:24 Glucose (Glucose 40% Gel 15 Gm Tube) 15 - 30 gm PO UD PRN; Protocol PRN Reason: Hypoglycemia Protocol Stop: 06/30/24 15:24 Glucose (Glucose 10 Tab/Tube) 4 - 8 tab PO UD PRN; Protocol PRN Reason: Hypoglycemia Protocol Stop: 06/30/24 15:24 Heparin Sodium/Dextrose (Heparin 13491 Unit/500 Ml D5w) 25,000 units in 500 mls @ 0 mls/hr IV .Q0M AZEEM; Protocol Stop: 06/30/24 15:44 Last Titration: 06/03/24 08:23 Dose: 0 units/hr, 0 mls/hr Insulin Aspart (Insulin Aspart Per Unit Charge) 0 units SC Q6 [facility] Stop: 07/03/24 05:59 Last Admin: 06/03/24 06:09 Dose: 1 units Insulin Glargine (Lantus Per Unit Charge) 0 units SC HS [facility]; Protocol Stop: 07/02/24 20:59 Last Admin: 06/02/24 21:43 Dose: 10 units Metoprolol Tartrate (Metoprolol Tartrate 50 Mg Tab) 50 mg PO BID [facility] Stop: 06/30/24 20:59 Last Admin: 06/03/24 08:12 Dose: 50 mg Miscellaneous (Carbohydrates For Hypoglycemia ) 15 - 30 gm PO UD PRN PRN Reason: Hypoglycemia Protocol Stop: 06/30/24 15:24 Miscellaneous Information (Pharmacy Glycemic Mgmt Consult) 1 each N/A UD PRN PRN Reason: Consult Stop: 06/30/24 15:24 Nitroglycerin (Nitroglycerin Sl 0.4 Mg/Tab Tab) 0.4 mg SL Q5M PRN PRN Reason: chest pain Stop: 06/30/24 15:19 Primidone (Primidone 50 Mg Tab) 100 mg PO BID [facility] Stop: 06/30/24 20:59 Last Admin: 06/03/24 08:11 Dose: 100 mg Sacubitril/Valsartan (Valsartan/Sacubitril 26/24mg Tab) 1 tab PO BID [facility] Stop: 07/02/24 08:59 Last Admin: 06/03/24 08:11 Dose: 1 tab PG Care Time/CCT Total # of Minutes Spent Total Time Spent with Patient: Total time spent is greater than 50% in coordination of care (as documented) at patient's floor/unit and/or counseling patient: Coding Level of Care Code 80451 SUB INP/OBS CARE 3/50MIN Diagnoses Acute HFrEF (heart failure with reduced ejection fraction) I50.21 NSTEMI (non-ST elevated myocardial infarction) I21.4 CAD (coronary artery disease) I25.10 Hypertension I10 Dyslipidemia E78.5 History of coronary artery bypass graft Z95.1 S/P coronary artery stent placement Z95.5 Cardiomyopathy I42.9 Anemia D64.9 Pulmonary hypertension I27.20 Mitral regurgitation I34.0
[2024-06-03 15:35] LABS: iSTAT Arterial Blood Gas HCO3 31 meg/L (19-24); iSTAT Arterial Blood Gas pCO2 49 mmHg (35-46); iSTAT Arterial Blood Gas pH 7.41 (7.35-7.45); iSTAT Arterial Blood Gas pO2 30 mmHg (80-95); iSTAT Carbon Dioxide 32 mmol/L (24-31); iSTAT Hematocrit 28 % (37-47); iSTAT Hemoglobin 9.5 g/dl (12.0-16.0); iSTAT Potassium 3.7 mmol/L (3.3-5.0); iSTAT Sodium 135 mmol/L (135-144)
[2024-06-03] MEDS: MELATONIN 3 MG TAB PO PRN (21:49)
[2024-06-04 07:19] VITALS: RESP 18; TEMP 97.9; O2SAT 96
[2024-06-04 07:46] LABS: Hematocrit (blood only) 30.5 % (37.0-47.0); Hemoglobin 10.4 g/dl (12.0-16.0); Mean Corpuscular Hemoglobin 29.5 pg (25.0-34.0); Mean Corpuscular Hgb Conc 34.1 g/dL (32.0-36.0); Mean Corpuscular Volume 86.4 fL (80.0-100.0); Mean Platelet Volume 9.8 fL (9.4-12.4); Platelet Count 409 K/uL (130-400); RDW Coefficient of Variation 14.3 % (11.5-14.5); RDW Standard Deviation 44.1 fL (36.4-46.3); Red Blood Count 3.53 M/uL (4.20-5.40); White Blood Count 7.86 K/ul (4.8-10.8)
[2024-06-04 08:02] LABS: BUN Creatinine Ratio 15.9 (10-20); Calcium 8.5 mg/dl (8.6-10.3); Creatinine Clr Calc Pharmacy 29.1 ml/min; Potassium 4.1 mmol/L (3.5-5.1)
[2024-06-04] MEDS: METOPROLOL SUCC 50MG EXT REL TAB PO SCH (08:42)
[2024-06-04] MEDS: FUROSEMIDE 40 MG TAB PO SCH (08:43)
[2024-06-04] MEDS: LANTUS PER UNIT CHARGE SC SCH (08:52)
[2024-06-04] MEDS: INSULIN ASPART PER UNIT CHARGE SC SCH (08:53)
--- NOTE | 2024-06-04 08:53 | Cardiology Progress Note ---
Date of Service June 04, 2024 Assessment & Plan (1) Acute HFrEF (heart failure with reduced ejection fraction): (2) NSTEMI (non-ST elevated myocardial infarction): (3) CAD (coronary artery disease): (4) Hypertension: (5) Dyslipidemia: (6) History of coronary artery bypass graft: (7) S/P coronary artery stent placement: (8) Cardiomyopathy: (9) Anemia: (10) Pulmonary hypertension: (11) Mitral regurgitation: Plan ASSESSMENT/PLAN: 1. Acute heart failure with reduced EF: LV systolic function has declined. Euvolemic. Renal function slightly worse today. Held today's Lasix. Will likely require Lasix 20 or 40 mg p.o. daily. Monitor renal function and electrolytes. NYHA class IV on presentation, since improved and likely class II/III. Entresto started on 06/02/2024. Replace metoprolol to tartrate with metoprolol succinate at discharge. She was initially hyperkalemic and therefore holding off on mineralocorticoid receptor antagonist for now. No SGLT2 inhibitor at this time given recent UTI. Strict I's and O's. Daily weights. Low-sodium diet. 2. NSTEMI: She did not present with angina. Continue antiplatelet therapy if no contraindication. Can discontinue heparin drip. Cardiac rehab. Continue beta- marcela. 3. CAD s/p CABG and PCI LAD/Diag and Cx: Has severe multivessel CAD noted on 06/03/2024 cath with prior LAD stent now occluded and also severe CAD involving the circumflex system. Medical therapy recommended by interventional cardio logy. Could likely consider PCI of circumflex for angina. Given history of gastric ulcer and black stools on presentation, would discontinue aspirin and continue Plavix which she has been on chronically. Continue beta-marcela. High intensity statin therapy. Given her dyspnea on exertion in the hallway and the fact that she now appears euvolemic, recommend isosorbide mononitrate 30 mg daily. 4. Cardiomyopathy: LV systolic function has declined. Plan as above. She does not meet criteria for ICD for primary prevention. Replace metoprolol tartrate with metoprolol succinate. Entresto initiated on 06/02/2024 and can be further adjusted in the outpatient setting. 5. Mitral regurgitation: Appears moderate on 06/01/2024 echo. Follow-up in the outpatient setting. 6. Pulmonary hypertension: Moderately elevated on initial echo this hospital stay but PA pressure normal on cath on 06/03/2024 after diuresis. 7. Hypertension: Blood pressure well-controlled. Plan as above. 8. Dyslipidemia: Continue high intensity statin therapy. LDL has been well- controlled. 9. Anemia: Baseline hemoglobin seems to be in the 11 range. Her hemoglobin was 11 on 05/31/2024 but dropped to 9.4 on 06/01/2024 but has since improved. She described possible melena prehospital but none further. Heme checking stool. Will defer to primary hospitalist service. Monitor for bleeding. 10. Disposition: If for communication with primary hospitalist, she has since been discharged and therefore not discharged on isosorbide mononitrate. When reviewing discharge medications, she was discharged both on losartan and Entresto. Message sent to Dr. Adams to discontinue losartan, which was replaced during this hospital stay by Entresto. Will arrange for isosorbide mononitrate 30 mg once daily through the office. Follow-up with Dr. Venegas on discharge. Heart failure program referral. Admission and Anticipated Discharge Date Admission Date: May 31, 2024 Subjective She was seen earlier this morning with her family at the bedside. She was able to ambulate in the hallway and had dyspnea but no chest pain. In general, she feels much improved compared to presentation. She denies syncope, near syncope, palpitations, edema, or bleeding. Physical Exam Physical Exam: Gen.: No acute distress. Alert and oriented. HEENT: Anicteric sclera. Neck: No JVD. No hepatojugular reflux. Cardiac: Regular. Normal S1-S2. 1/6 systolic ejection murmur. Pulmonary: Clear to auscultation bilaterally without wheezes, rales, or rhonchi. Abdomen: Soft, nontender, nondistended, with normoactive bowel sounds. No bruits noted. Extremities: 2+ radial pulses bilaterally. Left radial cath site was clean, dry, and intact without erythema or discharge. Right brachiocephalic access site appeared clean, dry, and intact without erythema or discharge. So you know that hospitalist I told you about that 1 that that was send that got home so he sent her home my 1 lady on losartan and Entresto 2+ posterior tibialis pulses bilaterally. No significant edema. No cyanosis. Results & Data Vital Signs (Past 12 Hours) Vital Signs Temp Pulse Pulse Resp BP Pulse Ox O2 Del Method 06/04/24 07:18 36.6 C 66 18 108/69 96 Room Air 06/04/24 03:04 36.4 C L 66 16 120/72 93 Room Air 06/03/24 21:47 74 Intake & Output 06/02/24 06/03/24 06/04/24 06/05/24 06:59 06:59 06:59 06:59 Intake Total 610.833 / 610.833 301.617 / 301.617 Balance 610.833 / 610.833 301.617 / 301.617 Weight 161 lb 2.526 oz 159 lb 13.362 oz 163 lb 2.273 oz Laboratory Results Laboratory Results - last 24 hr 06/03/24 06/03/24 06/03/24 09:52 09:53 10:29 WBC RBC Hgb POC Hgb 10.2 L 8.5 L Hct POC Hct 30 L MCV MCH MCHC RDW Std Deviation RDW Coeff of Sarina Plt Count MPV Activ Coag Time Kaolin 147 H POC pH 7.46 H POC pCO2 44 POC pO2 31 L POC HCO3 31 H POC Total CO2 32 H POC Base Excess 7.0 H POC ABG O2 Sat 63.0 L POC Sodium 136 Sodium POC Potassium 3.8 Potassium Chloride Carbon Dioxide Anion Gap BUN Creatinine Est Cr Clr Drug Dosing eGFR BUN/Creatinine Ratio Glucose POC Glucose Calcium 06/03/24 06/03/24 06/03/24 10:29 10:29 10:29 WBC RBC Hgb POC Hgb 9.5 L Hct POC Hct 25 L 28 L MCV MCH MCHC RDW Std Deviation RDW Coeff of Sarina Plt Count MPV Activ Coag Time Kaolin POC pH 7.45 7.41 POC pCO2 37 POC pO2 POC HCO3 POC Total CO2 POC Base Excess POC ABG O2 Sat POC Sodium Sodium POC Potassium Potassium Chloride Carbon Dioxide Anion Gap BUN Creatinine Est Cr Clr Drug Dosing eGFR BUN/Creatinine Ratio Glucose POC Glucose Calcium 06/03/24 06/03/24 06/03/24 10:29 10:29 10:29 WBC RBC Hgb POC Hgb Hct POC Hct MCV MCH MCHC RDW Std Deviation RDW Coeff of Sarina Plt Count MPV Activ Coag Time Kaolin POC pH POC pCO2 49 H POC pO2 89 30 L POC HCO3 26 H 31 H POC Total CO2 27 POC Base Excess POC ABG O2 Sat POC Sodium Sodium POC Potassium Potassium Chloride Carbon Dioxide Anion Gap BUN Creatinine Est Cr Clr Drug Dosing eGFR BUN/Creatinine Ratio Glucose POC Glucose Calcium 06/03/24 06/03/24 06/03/24 10:29 10:29 10:29 WBC RBC Hgb POC Hgb Hct POC Hct MCV MCH MCHC RDW Std Deviation RDW Coeff of Sarina Plt Count MPV Activ Coag Time Kaolin POC pH POC pCO2 POC pO2 POC HCO3 POC Total CO2 32 H POC Base Excess 2.0 H 6.0 H POC ABG O2 Sat 97.0 H 57.0 L POC Sodium 139 Sodium POC Potassium Potassium Chloride Carbon Dioxide Anion Gap BUN Creatinine Est Cr Clr Drug Dosing eGFR BUN/Creatinine Ratio Glucose POC Glucose Calcium 06/03/24 06/03/24 06/03/24 10:29 10:29 11:39 WBC RBC Hgb POC Hgb Hct POC Hct MCV MCH MCHC RDW Std Deviation RDW Coeff of Sarina Plt Count MPV Activ Coag Time Kaolin POC pH POC pCO2 POC pO2 POC HCO3 POC Total CO2 POC Base Excess POC ABG O2 Sat POC Sodium 135 Sodium POC Potassium 3.2 L 3.7 Potassium Chloride Carbon Dioxide Anion Gap BUN Creatinine Est Cr Clr Drug Dosing eGFR BUN/Creatinine Ratio Glucose POC Glucose 274 H Calcium 06/03/24 06/03/24 06/04/24 16:01 20:23 06:52 WBC 7.86 RBC 3.53 L Hgb 10.4 L POC Hgb Hct 30.5 L POC Hct MCV 86.4 MCH 29.5 MCHC 34.1 RDW Std Deviation 44.1 RDW Coeff of Sarina 14.3 Plt Count 409 H MPV 9.8 Activ Coag Time Kaolin POC pH POC pCO2 POC pO2 POC HCO3 POC Total CO2 POC Base Excess POC ABG O2 Sat POC Sodium Sodium 131 L POC Potassium Potassium 4.1 Chloride 95 L Carbon Dioxide 28 Anion Gap 8 BUN 23 Creatinine 1.45 H D Est Cr Clr Drug Dosing 29.1 eGFR 36.46 BUN/Creatinine Ratio 15.9 Glucose 166 H POC Glucose 168 H 124 H Calcium 8.5 L 06/04/24 07:22 WBC RBC Hgb POC Hgb Hct POC Hct MCV MCH MCHC RDW Std Deviation RDW Coeff of Sarina Plt Count MPV Activ Coag Time Kaolin POC pH POC pCO2 POC pO2 POC HCO3 POC Total CO2 POC Base Excess POC ABG O2 Sat POC Sodium Sodium POC Potassium Potassium Chloride Carbon Dioxide Anion Gap BUN Creatinine Est Cr Clr Drug Dosing eGFR BUN/Creatinine Ratio Glucose POC Glucose 174 H Calcium Diagnostic Findings Labs reviewed and notable for normal potassium, mild renal insufficiency, improved hemoglobin. Telemetry personally reviewed: Sinus rhythm. No arrhythmia. Medications Administered Current Inpatient Medications Acetaminophen (Acetaminophen 325 Mg Tab) 650 mg PO Q4H PRN PRN Reason: pain/fever Stop: 06/30/24 15:24 Albuterol (Albut/Ipratrop 3mg/0.5mg Neb 3 Ml Vial) 3 ml INH Q4H PRN; Protocol PRN Reason: wheezing Stop: 06/30/24 15:19 Amlodipine Besylate (Amlodipine Besylate 5 Mg Tab) 5 mg PO QAM AZEEM Stop: 07/01/24 08:59 Last Admin: 06/03/24 08:11 Dose: 5 mg Anastrozole (Anastrozole 1 Mg Tab) 1 mg PO QAM AZEEM Stop: 07/01/24 08:59 Last Admin: 06/03/24 08:11 Dose: 1 mg Atorvastatin Calcium (Atorvastatin 40 Mg Tab) 80 mg PO QPM AZEEM Stop: 06/30/24 20:59 Last Admin: 06/03/24 21:50 Dose: 80 mg Clopidogrel Bisulfate (Clopidogrel Bisulfate 75 Mg Tab) 75 mg PO DAILY AZEEM Stop: 07/01/24 08:59 Last Admin: 06/03/24 08:12 Dose: 75 mg Dextrose (Dextrose 50% 50 Ml Syringe) 25 - 50 ml IV UD PRN; Protocol PRN Reason: Hypoglycemia Protocol Stop: 06/30/24 15:24 Fluoxetine HCl (Fluoxetine Hcl 20 Mg Cap) 20 mg PO QAM AZEEM Stop: 07/01/24 08:59 Last Admin: 06/03/24 08:11 Dose: 20 mg Furosemide (Furosemide 40 Mg Tab) 40 mg PO QAM AZEEM Stop: 07/04/24 08:59 Glucagon (Glucagon For Inj 1 Mg Vial) 1 mg SQ UD PRN; Protocol PRN Reason: Hypoglycemia Protocol Stop: 06/30/24 15:24 Glucose (Glucose 40% Gel 15 Gm Tube) 15 - 30 gm PO UD PRN; Protocol PRN Reason: Hypoglycemia Protocol Stop: 06/30/24 15:24 Glucose (Glucose 10 Tab/Tube) 4 - 8 tab PO UD PRN; Protocol PRN Reason: Hypoglycemia Protocol Stop: 06/30/24 15:24 Insulin Aspart (Insulin Aspart Per Unit Charge) 0 units SC 0730 [facility] Stop: 07/04/24 07:29 Insulin Aspart (Insulin Aspart Per Unit Charge) 0 units SC 1130,1630,2100 [facility] Stop: 07/04/24 11:29 Insulin Glargine (Lantus Per Unit Charge) 0 units SC HS [facility]; Protocol Stop: 07/02/24 20:59 Last Admin: 06/03/24 21:06 Dose: Not Given Insulin Glargine (Lantus Per Unit Charge) 10 units SC DAILY [facility] Stop: 07/04/24 08:59 Melatonin (Melatonin 3 Mg Tab) 3 mg PO HS PRN PRN Reason: Sleep Stop: 07/03/24 20:33 Last Admin: 06/03/24 21:49 Dose: 3 mg Metoprolol Succinate (Metoprolol Succ 50mg Ext Rel Tab) 100 mg PO QAM [facility] Stop: 07/04/24 08:59 Miscellaneous (Carbohydrates For Hypoglycemia ) 15 - 30 gm PO UD PRN PRN Reason: Hypoglycemia Protocol Stop: 06/30/24 15:24 Miscellaneous Information (Pharmacy Glycemic Mgmt Consult) 1 each N/A UD PRN PRN Reason: Consult Stop: 06/30/24 15:24 Nitroglycerin (Nitroglycerin Sl 0.4 Mg/Tab Tab) 0.4 mg SL Q5M PRN PRN Reason: chest pain Stop: 06/30/24 15:19 Primidone (Primidone 50 Mg Tab) 100 mg PO BID [facility] Stop: 06/30/24 20:59 Last Admin: 06/03/24 21:50 Dose: 100 mg Sacubitril/Valsartan (Valsartan/Sacubitril 26/24mg Tab) 1 tab PO BID [facility] Stop: 07/02/24 08:59 Last Admin: 06/03/24 21:51 Dose: 1 tab PG Care Time/CCT Total # of Minutes Spent Total Time Spent with Patient: Total time spent is greater than 50% in coordination of care (as documented) at patient's floor/unit and/or counseling patient: Coding Level of Care Code 60525 SUB INP/OBS CARE 3/50MIN Diagnoses Acute HFrEF (heart failure with reduced ejection fraction) I50.21 NSTEMI (non-ST elevated myocardial infarction) I21.4 CAD (coronary artery disease) I25.10 Hypertension I10 Dyslipidemia E78.5 History of coronary artery bypass graft Z95.1 S/P coronary artery stent placement Z95.5 Cardiomyopathy I42.9 Anemia D64.9 Pulmonary hypertension I27.20 Mitral regurgitation I34.0
--- NOTE | 2024-06-04 09:46 | Discharge Summary ---
Discharge Summary Date of Service June 04, 2024 Principal Dx & Hospital Course #1 = Principal Diagnosis (1) CHF exacerbation: -lasix 40 IV BID - off bipap -echo -cardiology consulted -BNP >3000 -CXR with pulmonary edema (2) NSTEMI (non-ST elevated myocardial infarction): -troponin >160, now 439 -con't to trend -asa, plavix, metoprolol, atorvastatin -heparin drip - cath shows prior LAD stent now occluded and also severe CAD involving the circumflex system. Medical therapy recommended by interventional cardiology. -h/h improved today with heme up to 9.8 -stool occult pending (3) Diabetes: -RISS (4) Hypertension: -amlodapine -losartan -metoprolol (5) Hyperlipidemia: -atorvastatin Admission HPI Per Admitting Provider Pt is an 78 y/o female with pmh of CAD s/p CABG, stents x2, DM, HTN, HLD, anxiety, who presents with 1 day history of SOB that began this am. Patient den ies any chest pain, fever, or cough. In the ER her CXR showed CHF with pulmonary vascular congestion. Her EKG showe sinus tachycardia with some lateral ischemia. Her troponin was >166 and BNP > 3000. Pt was given lasix IV and started on bipap in the ER. Her symptoms improved and she was also started on heparin drip. Pt is being admitted for further treatment of CHF exacerbation with NSTEMI. Discharge Exam GENERAL APPEARANCE NAD, activity normal for age, well developed/ well nourished, no cyanosis, pallor, or diaphoresis. EYES lids/conjunctiva normal. EARS/NOSE/THROAT Mucous membranes moist, nares normal, lips/teeth normal uvula midline without oral pharyngeal erythema, exudate or swelling TMs normal bilaterally. No lymphangitis/lymphedema. HEAD/NECK normocephalic atraumatic, no facial trauma, neck is supple. Bipap in place RESPIRATORY respiratory effort normal, speaks in full sentences, no tripod position, no accessory muscle use. Lungs clear to auscultation without rhonchi, wheezes, rales CARDIAC Regular rate and rhythm, no edema. ABDOMINAL Soft, ND/NT. No evidence of fluid wave. No pulsatile masses on exam, rebound tenderness, Blanca sign or pain over Mcburney's point. MUSCLES/EXTREMITIES No abnormal range of motion, no swelling. SKIN Warm, pink and dry. No rashes, dermatoses, petechiae or lesions. NEUROLOGICAL Speech is clear and appropriate. Normal level of consciousness. Gait and coordination are normal. 5/5 strength in all extremities. PSYCH Normal mood and affect. Judgement/competence is appropriate Discharge Plan Discharge Items Patient Disposition: Home - Self-Care Reason For Visit: CHF,ELEVATED TROPONIN Discharge Diagnosis: CHF, NSTEMI Activity: Resume your previous activity Non-emergency contact: Primary Care Provider Call non-emergency contact if: you have any medication questions Follow-up/Referrals: Bashir Melgar DO [Primary Care Provider] - Diet: Regular Addtl Attending Provider Instructions: ACTIVITY RECOMMENDATIONS: Excess manipulation of the wrist should be avoided for the next 24-48 hours. * No lifting over 2 pounds (approximately a 1/2 gallon of milk) with the utilized arm for 24 hours. * No strenuous activity such as bowling or tennis for 3 days. * Keep the site of the procedure covered with a bandage for 24 hours. *You may shower the day after the procedure. Do not take a tub bath or submerge the puncture site in water for the next 3 days. *Do not operate any motorized equipment for 3 days. SPECIAL CARE INSTRUCTIONS: The site may be slightly bruised and sore following your procedure. Should any of the following occur, contact the Dr. who performed your procedure. 1. Redness/inflammation, swelling, chills, or fever, or colored drainage at procedure site within 3-7 days after your procedure. 2. Coldness, discoloration, ongoing numbness, severe pain, or swelling. Expect mild tingling of hand and tenderness at the puncture site for up to three days. If this persists beyond three days, or other symptoms develop, notify the Dr. who performed your procedure. BLEEDING: If the procedure site on your wrist begins to bleed, do not panic 1. Place 1 or 2 fingers firmly just slightly above the insertion site to stop the bleeding. You may be able to feel your pulse as you hold pressure. 2. Lift your finger after 5 minutes to see if the bleeding has stopped. 3. Once the bleeding has stopped, gently wipe the wrist area clean with a bandage. * If the bleeding from your wrist does not stop after 10 minutes, or if there is a large amount of bleeding or spurting, call 911 (do not drive yourself to the hospital). SKIN IRRITATION: * You may experience some redness and/or swelling in the area where radiation was administered. If any skin irritation occurs, please contact your family physician. FOLLOW UP VISIT: Keep any scheduled doctor appointments. Pending Studies at Discharge: No Stand-Alone Forms: My [facility], Smoking Cessation Medications and DC Order Prescriptions: New metoprolol succinate 50 mg Tablet Extended Release 24 Hr 100 mg PO QAM Qty: 30 0RF Entresto 24-26 mg Tablet 1 tab PO BID Qty: 60 0RF furosemide 40 mg Tablet 40 mg PO QAM Qty: 30 0RF Continued (DME) blood-glucose meter [OneTouch Verio Meter] [facility] See Rx Instructions .ROUTE .MEDSUPPLY Qty: 1 0RF Rx Instructions: Test blood sugar two times daily (DME) OneTouch Verio test strips Strip See Rx Instructions .ROUTE .MEDSUPPLY Qty: 300 3RF Dose Instruction: As directed Rx Instructions: test blood sugar three times a day albuterol sulfate 90 mcg/actuation HFA aerosol inhaler 2 puff INHALATION Q6H PRN (Reason: Wheezing) Qty: 18 3RF metformin 1,000 mg tablet 1,000 mg PO BID Qty: 180 3RF fluoxetine [Prozac] 20 mg capsule 20 mg PO QAM Qty: 90 3RF amlodipine 5 mg tablet 5 mg PO QAM Qty: 90 3RF Patient Comments: TAKES 7.5MG QAM clopidogrel 75 mg tablet 75 mg PO DAILY Qty: 90 3RF losartan 50 mg tablet 50 mg PO QAM Qty: 90 3RF prevagen 1 tab PO DAILY (DME) blood-glucose meter [OneTouch Verio Flex meter] [facility] See Rx Instructions .ROUTE .MEDSUPPLY Qty: 1 0RF Rx Instructions: As directed (DME) lancets [OneTouch Delica Plus Lancet] 33 gauge [facility] [place] See Rx Instructions .ROUTE .MEDSUPPLY Dose Instruction: As directed Rx Instructions: test blood sugar 2 x daily anastrozole 1 mg tablet 1 mg PO QAM coenzyme Q10 200 mg capsule 200 mg PO QAM Novolin N FlexPen 100 unit/mL (3 mL) insulin pen See Rx Instructions subcut .COMPLEX 90 Days Qty: 90 3RF Rx Instructions: 48 unit in AM; 44 units PM subcutaneously; Novolin R FlexPen 100 unit/mL (3 mL) insulin pen 30 unit subcut BID 90 Days Qty: 60 2RF (DME) pen needle, diabetic [BD Ultra-Fine Suzette Pen Needle] 32 gauge x 5/32" needle See Dose Instructions .ROUTE .MEDSUPPLY Qty: 400 3RF Rx Instructions: use 4 daily budesonide 0.5 mg/2 mL suspension for nebulization 0.5 mg inhalation BID Qty: 60 1RF cyanocobalamin (vitamin B-12) 2,500 mcg tablet 1,000 mcg PO .3XWK Rx Instructions: 1,000 mcg orally 3x per week; atorvastatin 80 mg tablet 80 mg PO QPM Qty: 90 3RF nitroglycerin [Nitrostat] 0.4 mg tablet, sublingual 0.4 mg Sublingual Q5M PRN (Reason: chest pain) Qty: 25 5RF Rx Instructions: PLACE 1 TAB UNDER TONGUE Q5M FOR UP TO 3 DOSES PRN CHEST PAIN. CALL 911 IF PAIN PERSISTS (DME) nebulizer and compressor Device See Rx Instructions .ROUTE .MEDSUPPLY Qty: 1 0RF Rx Instructions: As directed ipratropium-albuterol 0.5 mg-3 mg(2.5 mg base)/3 mL solution for nebulization 3 ml inhalation Q4H PRN (Reason: wheezing) Qty: 180 1RF primidone [Mysoline] 50 mg tablet 100 mg PO BID 90 Days Qty: 360 1RF alendronate 70 mg tablet 70 mg PO .COMPLEX Qty: 5 11RF Rx Instructions: 70 mg orally once weekly; PreserVision AREDS-2 250-90-40-1 mg Capsule 1 tab PO BID (DME) Spacer for Inhaler Misc See Rx Instructions .Route Qty: 1 0RF Rx Instructions: Use with albuterol inhaler as needed every 2 hours for wheezing. choline [id number] 1 tab PO QAM Discontinued metoprolol tartrate [Lopressor] 50 mg tablet 50 mg PO BID Qty: 180 3RF Discharge Orders: Discharge Order (Routine); Ordered 06/04/24 Ordered By: Syd Adams Admission Data Admit Date/Time: 05/31/24 15:25 Attending Provider: Syd Adams Admit Provider: Syd Adams Primary Care Provider: Bashir Melgar Other Providers: Syd Adams; Josr Rodrigues; Ifeoma Fermin Hospital Stay Data Consultations 05/31/24 15:02 ED Decision to Admit Stat 05/31/24 16:24 Consult Cardiology Stat 06/01/24 22:00 [facility] CHF Program Referral Routine Procedures Performed Operation Date: 06/03/24 09:30 Actual Procedures p Cineradiography w/Routine Exam - Josr Rodrigues MD p Cath, Right and Left Heart - Josr Rodrigues MD Diagnostic Imagining Performed 06/03/24 06:51 CL Cath Imgs for PACS use only Routine Pending Results Patient Have Any Pending Studies at Discharge: No Discharge Instructions Given to Patient (Per Discharging Provider) ACTIVITY RECOMMENDATIONS: Excess manipulation of the wrist should be avoided for the next 24-48 hours. * No lifting over 2 pounds (approximately a 1/2 gallon of milk) with the utilized arm for 24 hours. * No strenuous activity such as bowling or tennis for 3 days. * Keep the site of the procedure covered with a bandage for 24 hours. *You may shower the day after the procedure. Do not take a tub bath or submerge the puncture site in water for the next 3 days. *Do not operate any motorized equipment for 3 days. SPECIAL CARE INSTRUCTIONS: The site may be slightly bruised and sore following your procedure. Should any of the following occur, contact the Dr. who performed your procedure. 1. Redness/inflammation, swelling, chills, or fever, or colored drainage at procedure site within 3-7 days after your procedure. 2. Coldness, discoloration, ongoing numbness, severe pain, or swelling. Expect mild tingling of hand and tenderness at the puncture site for up to three days. If this persists beyond three days, or other symptoms develop, notify the Dr. who performed your procedure. BLEEDING: If the procedure site on your wrist begins to bleed, do not panic 1. Place 1 or 2 fingers firmly just slightly above the insertion site to stop the bleeding. You may be able to feel your pulse as you hold pressure. 2. Lift your finger after 5 minutes to see if the bleeding has stopped. 3. Once the bleeding has stopped, gently wipe the wrist area clean with a bandage. * If the bleeding from your wrist does not stop after 10 minutes, or if there is a large amount of bleeding or spurting, call 911 (do not drive yourself to the hospital). SKIN IRRITATION: * You may experience some redness and/or swelling in the area where radiation was administered. If any skin irritation occurs, please contact your family physician. FOLLOW UP VISIT: Keep any scheduled doctor appointments. Total Time Total Time Spent Total Time Spent (In Minutes): 50 Coding Level of Care Code 29057 INP/OBS DISCH >30 MIN Diagnoses CHF exacerbation I50.9 NSTEMI (non-ST elevated myocardial infarction) I21.4 Diabetes E11.9 Hypertension I10 Hyperlipidemia E78.5
[2024-06-04 10:49] VITALS: BP 116/70; PULSE 66
[2024-06-04] MEDS ORDERED: INSULIN ASPART PER UNIT CHARGE SC SCH (11:30)
== END 2024-06-04 12:13 | disposition home or self-care (01) | DRG 280 ==
LOC: SUATTDRO → ED 14:00 → 2S 15:25

== ENCOUNTER 2024-06-09 09:36 | Observation (INO) ==
--- NOTE | 2024-06-09 10:08 | Emergency Department Note ---
Impression & Plan Dyspnea ADMIT ED Provider Note HPI: History obtained from patient. The patient is a 78-year-old female past medical history of CABG x 2, coronary artery disease, CHF with reduced ejection fraction, who presents the emergency department with chief complaint of shortness of breath. Patient states that she woke up at approximately midnight last night feeling more short of breath than usual. She states she also had a headache and some back pain. Patient states her headache and back pain are improved from previous but she continues to feel short of breath. Per nursing patient was at 88% on room air on arrival and was placed on nasal cannula oxygen with good improvement. Patient states she does not wear oxygen at baseline. She does not wear positive pressure ventilation at night. On arrival here to the ED otherwise the patient appears to be in no acute distress, she displayed some mild increased work of breathing but she is alert on arrival and otherwise appears nontoxic. Patient denies any chest pain. ROS: - Per HPI Differential Diagnosis: Acute CHF exacerbation with pulmonary edema, pleural effusion, hypercapnic respiratory failure, COPD, pneumonia, viral upper respiratory infection, amongst other potential pathologies. *Outpatient medications and allergy history reviewed. PE: General: Alert HEENT: Normocephalic, trachea midline Eyes: Extraocular eye movement is intact, no scleral erythema Pulmonary: Diminished bilateral breath sounds Cardio: Regular rate and rhythm GI: Abdomen is soft to palpation : No suprapubic tenderness MSK: No evidence of trauma or malformation of the extremities, 1-2+ bilateral lower extremity edema Skin: No evidence of rash Neuro: Alert, no focal deficits Psychiatric: Cooperative INDEPENDENT INTERPRETATIONS: playground monitor: (As interpreted by myself): - An order was placed for continuous cardiac monitoring - Patient was noted to be in sinus rhythm with a rate of 90 EKG: (As interpreted by myself): Rate: 93 Rhythm: Normal sinus rhythm Intervals: Within normal limits ST changes: No ST elevation Time: 0947 Chest x-ray: (As interpreted by myself): Pulmonary edema pattern Interventions provided in ED: -IV Lasix, BiPAP Medical Decision Making: IV was established and lab work obtained, patient was placed on case monitor. Lab work shows a mild leukocytosis of 12.2, hemoglobin is stable at 9.4, platelet count is normal, CMP shows mild hyperkalemia of 5.3, baseline kidney disease, troponin is with mild elevation at 35, BNP is markedly elevated at 2857. EKG per my interpretation shows normal sinus rhythm without any acute ischemic changes, there is some ST depressions in the lateral leads that appear similar to the patient's previous EKG. On my reassessment the patient was more tachypneic on nasal cannula oxygen, she was therefore switched to BiPAP as she was during her recent admission as well. Patient did seem to respond well to this, her venous blood gas did show evidence of some mild acidosis with a pH of 7. 3 0 and a pCO2 of 52. Patient was given a dose of IV Lasix as she stated she did not take her morning medications, she will be placed for admission to the hospitalist service following my discussion with the on-call hospitalist, Dr. Kim. Patient and her family member at the bedside were in agreement to this plan and the patient was placed for admission in stable condition. Consultants/Discussions held with other healthcare providers: -Hospitalist, Dr. Kim Disposition discussion held by myself with: -Patient * CRITICAL CARE TIME: ( 43 ) minutes -Stabilization of patient with hypoxia with presenting oxygen saturations at 88% on room air requiring supplemental oxygen and eventually positive pressure ventilation for correction, time spent at the bedside, interpretation of diagnostic studies, discussion with other healthcare providers and arrangement of admission. Diagnosis: 1. Hypoxia, acute 2. CHF exacerbation, acute 3. Elevated BNP, acute 4. Hypercapnic respiratory failure, acute Disposition: Admission Camron Byrne DO Emergency Medicine Past Med/Surg History Problem List (Updated 06/09/24 @ 15:28 by Camron Byrne DO) Dyspnea (Acute) Mitral regurgitation Pulmonary hypertension Cardiomyopathy S/P coronary artery stent placement Acute HFrEF (heart failure with reduced ejection fraction) Flash pulmonary edema (Acute) Diabetes NSTEMI (non-ST elevated myocardial infarction) CHF exacerbation Dyspnea (Acute) JOBY (acute kidney injury) (Acute) Hypomagnesemia (Acute) UTI (urinary tract infection) Diarrhea (Acute) Generalized weakness (Acute) Gait disorder Allergic rhinitis Overweight (BMI 25.0-29.9) Abnormal PFT Dyspnea on exertion Solitary pulmonary nodule Wheeze Postmenopausal estrogen deficiency Sore throat Congestion of nasal sinus Cough Headache Bacterial sinusitis Sensorineural hearing loss of both ears Diabetic nephropathy associated with type 2 diabetes mellitus Uncontrolled type 2 diabetes mellitus with hyperglycemia, with long-term current use of insulin Seborrheic keratoses Abrasion, right lower leg, initial encounter Subacromial bursitis Rotator cuff tendinitis Toe fracture Glenohumeral arthritis Toe swelling Left shoulder pain CAD (coronary artery disease) (Chronic) 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) Tremor (Chronic) Osteopenia (Acute) Obesity (Acute) Hypertension (Chronic) Dyslipidemia (Chronic) Depression (Chronic) Breast cancer (Chronic 07/2017) left breast infiltrating ductal CA dx 07/2017 (ER+/AR+, Her 2 -) and right breast invasive ductal CA dx 11/2017 (ER+/AR+, Her 2 +), s/p elective B/L mastectomy with right axillary dissection (0/7 nodes +), on Arimedex since Jan 2018 Arthralgia of multiple sites (Acute) Arteriosclerotic cardiovascular disease (Acute) Chronic kidney disease Type 2 diabetes mellitus treated with insulin (Chronic) 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 Sinusitis Parkinsonism Anemia (Chronic) Tremor of both hands (Chronic) Internal hemorrhoid (Chronic) Gait instability (Chronic) Hypercalcemia Hypomagnesemia Hypophosphatemia Medical History Pulmonary edema Arthritis Hx of breast cancer Anxiety Neuropathy Myocardial Infarction 2010 History of COVID-19 01/2021>MILD SYMPTOMS *RESOLVED Thrombocytopenia DM type 2 (diabetes mellitus, type 2) IDDM CAD (coronary artery disease) Tremor L ARM ON OCC-NO DIAGNOSIS Hypertension Hyperlipidemia Unstable angina (03/16/14) Surgical History H/O bilateral mastectomy SURGERY ONLY>(NO LIMB RESTRICTION) NO RECONSTRUCTION H/O lumpectomy LEFT X 2 History of tooth extraction History of surgery Right Axillary Dissection, Bilateral Breast Scar Revision - 12/2017 [facility] History of colonoscopy History of trigger finger right thumb release History of open reduction and internal fixation (ORIF) procedure RT ANKLE History of cataract surgery RT/LEFT History of cardiac cath STENTS 06/2010 IN [place] (DIAG AND CX), 1 STENT 04/2011, AND 1 STENT 2013 IN [place] History of coronary artery bypass graft 3 VESSELS-2009 AT [facility] *FOLLOWS WITH DR. HAMMER Family History Sister Breast cancer Father Alcoholism Mother Heart disease Uncle Heart disease Daughter Family history of diabetes mellitus Other No family history of adverse response to anesthesia Denies family history of Ovarian cancer Prostate cancer Myocardial infarction Colorectal cancer Social History Smoking Status: Former smoker Tobacco Type: Cigarettes Age Started Using Tobacco: 13; Age Quit Using Tobacco: 43; packs per day: 0.75; Second Hand Exposure: No; Do You Dip or Chew Tobacco: No; Hx Alcohol Use: No Hx Substance Use: No Preferred Language: Upper Sorbian Communication Ability: Effective Visual Impairment: No Limitations Hearing Ability: Normal Bell Spinner Sousaphones Required: No Beliefs That Will Affect Care: None marital status: Current Living Situation: Spouse Current Living Situation Comment: single story house current occupational status: retired 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 [employer] Feels Safe at Home: Yes Childhood Exposure to Second-Hand Smoke: Yes Diet: regular caffeine: Yes Dental Care, Regularly: No Physical Activity Frequency: Does not Exercise Seatbelt Use: always Sunscreen Use: Yes Assistive Devices: None Allergies Allergies Allergy/AdvReac Type Severity Reaction Status Date / Time lisinopril Allergy Intermediate Cough Verified 06/06/24 12:58 isosorbide AdvReac Headache Verified 06/06/24 12:58 Home Meds Home Medications Medication Instructions Recorded Confirmed anastrozole 1 mg tablet 1 mg PO QAM 11/08/18 06/09/24 coenzyme Q10 200 mg capsule 200 mg PO QAM 01/06/20 06/09/24 lancets 33 gauge (OneTouch Delica 02/09/20 06/06/24 Plus Lancet) vit C 250 mg-vit E 90 mg-zinc 40 1 tab PO BID 09/26/21 06/09/24 mg-copper 1 [id number] capsule (PreserVision AREDS-2) prevagen 1 tab PO DAILY 05/29/22 06/09/24 cyanocobalamin (vitamin B-12) 1,000 mcg PO .3XWK 12/19/23 06/09/24 2,500 mcg tablet choline [id number] 1 tab PO QAM 05/31/24 06/09/24 furosemide 40 mg tablet 20 mg PO UD 06/09/24 06/09/24 isosorbide mononitrate 30 mg 30 mg PO UD 06/09/24 06/09/24 tablet,extended release 24 hr Previous Rx's Medication Instructions Recorded blood-glucose meter (OneTouch #1 ea 07/29/20 Verio Meter) Spacer for Inhaler #1 ea 09/27/21 blood-glucose meter (OneTouch #1 ea 03/24/22 Verio Flex Meter) insulin NPH isoph U-100 human 100 See Rx Instructions subcut 05/23/23 unit/mL (3 mL) subcutaneous pen .COMPLEX 90 days #90 mL (Novolin N FlexPen) insulin regular human 100 unit/mL 30 unit (0.3 mL) subcut BID 90 05/23/23 (3 mL) subcutaneous pen (Novolin R days #60 mL FlexPen) pen needle, diabetic 32 gauge x #400 ea 05/23/23" (BD Ultra-Fine Suzette Pen Needle) ipratropium 0.5 mg-albuterol 3 mg 3 ml inhalation Q4H PRN wheezing 07/10/23 (2.5 mg base)/3 mL nebulization #180 mL soln nebulizer and compressor #1 ea 07/10/23 OneTouch Verio test strips (blood #300 ea 07/30/23 sugar diagnostic) budesonide 0.5 mg/2 mL suspension 0.5 mg (2 mL) inhalation BID #60 mL 07/30/23 for nebulization alendronate 70 mg tablet 70 mg PO .COMPLEX #5 tabs 12/19/23 atorvastatin 80 mg tablet 80 mg PO QPM #90 tabs 01/08/24 nitroglycerin 0.4 mg sublingual 0.4 mg sublingual Q5M PRN chest 01/08/24 tablet (Nitrostat) pain #25 tabs albuterol sulfate 90 mcg/actuation 2 puff inhalation Q6H PRN Wheezing 01/17/24 aerosol inhaler #18 grams metformin 1,000 mg tablet 1,000 mg PO BID #180 tabs 01/21/24 fluoxetine 20 mg capsule (Prozac) 20 mg PO QAM #90 caps 04/24/24 primidone 50 mg tablet (Mysoline) 100 mg (2 x 50 mg) PO BID 90 days 05/06/24 #360 tabs amlodipine 5 mg tablet 5 mg PO QAM #90 tabs 05/07/24 clopidogrel 75 mg tablet 75 mg PO DAILY #90 tabs 05/28/24 metoprolol succinate 50 mg 100 mg (2 x 50 mg) PO QAM #30 tabs 06/04/24 tablet,extended release 24 hr sacubitril 24 mg-valsartan 26 mg 1 tab PO BID #60 tabs 06/04/24 tablet (Entresto) Results & Data (ED) Vital Signs Vital Signs - 24 hr 06/09/24 10:00 06/09/24 10:03 06/09/24 10:03 Temperature 36.5 C Temperature Source Oral Pulse Rate 83 85 Pulse Rate [Apical] Pulse Rate from SpO2 Sensor 84 Pulse Rhythm Regular Pulse Rhythm [Apical] Pulse Strength Normal Pulse Strength [Apical] Respiratory Rate 28 H 28 H Respiratory Effort / Characteristics Spontaneous Labored Spontaneous Labored Respiratory Depth Shallow Normal Respiratory Pattern Tachypnea Regular Blood Pressure 158/101 H 158/101 H Blood Pressure [Left Arm] Blood Pressure Mean 120 120 Blood Pressure Mean [Left Arm] Blood Pressure Position Semi-fowlers Blood Pressure Position [Left Arm] Pulse Oximetry 100 88 L Oxygen Delivery Method Nasal Cannula Nasal Cannula Room Air Oxygen Flow Rate 2 2 Fraction of Inspired Oxygen Sepsis Recent Fever Within 48 Hours No Sepsis New/Unexplained Change in Mental Status No Sepsis Action Taken by Nursing No Action Required Oxygen Flow Rate - Titration Pulse Oximetry Post Tiitration 06/09/24 10:03 06/09/24 10:03 06/09/24 10:03 Temperature 36.5 C Temperature Source Oral Pulse Rate 85 Pulse Rate [Apical] 85 Pulse Rate from SpO2 Sensor Pulse Rhythm Regular Pulse Rhythm [Apical] Regular Pulse Strength Pulse Strength [Apical] Normal Respiratory Rate 28 H 28 H Respiratory Effort / Characteristics Spontaneous Labored Respiratory Depth Normal Respiratory Pattern Tachypnea Blood Pressure Blood Pressure [Left Arm] 158/101 H Blood Pressure Mean Blood Pressure Mean [Left Arm] 120 Blood Pressure Position Blood Pressure Position [Left Arm] Semi-fowlers Pulse Oximetry 88 L 98 98 Oxygen Delivery Method Room Air Nasal Cannula Nasal Cannula Oxygen Flow Rate 0 2 2 Fraction of Inspired Oxygen Sepsis Recent Fever Within 48 Hours Sepsis New/Unexplained Change in Mental Status Sepsis Action Taken by Nursing Oxygen Flow Rate - Titration 2 Pulse Oximetry Post Tiitration 98 06/09/24 10:30 06/09/24 10:33 06/09/24 10:58 Temperature Temperature Source Pulse Rate 90 98 H Pulse Rate [Apical] Pulse Rate from SpO2 Sensor 90 Pulse Rhythm Pulse Rhythm [Apical] Pulse Strength Pulse Strength [Apical] Respiratory Rate 30 H 34 H Respiratory Effort / Characteristics Labored Short of Breath Respiratory Depth Respiratory Pattern Blood Pressure 163/96 H Blood Pressure [Left Arm] Blood Pressure Mean 121 Blood Pressure Mean [Left Arm] Blood Pressure Position Blood Pressure Position [Left Arm] Pulse Oximetry 96 100 Oxygen Delivery Method Nasal Cannula Oxygen Flow Rate 2 Fraction of Inspired Oxygen 35 Sepsis Recent Fever Within 48 Hours Sepsis New/Unexplained Change in Mental Status Sepsis Action Taken by Nursing Oxygen Flow Rate - Titration Pulse Oximetry Post Tiitration 06/09/24 11:00 06/09/24 12:24 06/09/24 12:30 Temperature Temperature Source Pulse Rate 98 H 85 81 Pulse Rate [Apical] Pulse Rate from SpO2 Sensor 98 H 84 81 Pulse Rhythm Pulse Rhythm [Apical] Pulse Strength Pulse Strength [Apical] Respiratory Rate 36 H 27 H 26 H Respiratory Effort / Characteristics Respiratory Depth Respiratory Pattern Blood Pressure 197/130 H 149/78 H 140/101 H Blood Pressure [Left Arm] Blood Pressure Mean 152 101 114 Blood Pressure Mean [Left Arm] Blood Pressure Position Blood Pressure Position [Left Arm] Pulse Oximetry 100 100 100 Oxygen Delivery Method BiPAP BiPAP BiPAP Oxygen Flow Rate Fraction of Inspired Oxygen Sepsis Recent Fever Within 48 Hours Sepsis New/Unexplained Change in Mental Status Sepsis Action Taken by Nursing Oxygen Flow Rate - Titration Pulse Oximetry Post Tiitration 06/09/24 13:30 06/09/24 13:47 06/09/24 14:00 Temperature Temperature Source Pulse Rate 76 75 81 Pulse Rate [Apical] Pulse Rate from SpO2 Sensor 76 80 Pulse Rhythm Pulse Rhythm [Apical] Pulse Strength Pulse Strength [Apical] Respiratory Rate 28 H 22 Respiratory Effort / Characteristics Respiratory Depth Respiratory Pattern Blood Pressure 160/74 H 126/69 Blood Pressure [Left Arm] Blood Pressure Mean 102 88 Blood Pressure Mean [Left Arm] Blood Pressure Position Blood Pressure Position [Left Arm] Pulse Oximetry 100 100 Oxygen Delivery Method BiPAP BiPAP Oxygen Flow Rate Fraction of Inspired Oxygen Sepsis Recent Fever Within 48 Hours Sepsis New/Unexplained Change in Mental Status Sepsis Action Taken by Nursing Oxygen Flow Rate - Titration Pulse Oximetry Post Tiitration 06/09/24 15:00 06/09/24 15:14 Temperature Temperature Source Pulse Rate 72 78 Pulse Rate [Apical] Pulse Rate from SpO2 Sensor 73 Pulse Rhythm Pulse Rhythm [Apical] Pulse Strength Pulse Strength [Apical] Respiratory Rate 24 22 Respiratory Effort / Characteristics Non-Labored Spontaneous Respiratory Depth Normal Respiratory Pattern Regular Blood Pressure Blood Pressure [Left Arm] Blood Pressure Mean Blood Pressure Mean [Left Arm] Blood Pressure Position Blood Pressure Position [Left Arm] Pulse Oximetry 100 100 Oxygen Delivery Method BiPAP Oxygen Flow Rate Fraction of Inspired Oxygen Sepsis Recent Fever Within 48 Hours Sepsis New/Unexplained Change in Mental Status Sepsis Action Taken by Nursing Oxygen Flow Rate - Titration Pulse Oximetry Post Tiitration Laboratory Data 06/09/24 09:50 06/09/24 09:50 Lab Results 06/09/24 06/09/24 06/09/24 Range/Units 09:50 09:58 11:15 WBC 12.20 H (4.8-10.8) K/ul RBC 3.21 L (4.20-5.40) M/uL Hgb 9.4 L (12.0-16.0) g/dl POC Hgb (12.0-16.0) g/dl Hct 29.3 L (37.0-47.0) % POC Hct (37-47) % MCV 91.3 (80.0-100.0) fL MCH 29.3 (25.0-34.0) pg MCHC 32.1 (32.0-36.0) g/dL RDW Std Deviation 50.6 H (36.4-46.3) fL RDW Coeff of Sarina 15.5 H (11.5-14.5) % Plt Count 293 (130-400) K/uL MPV 10.3 (9.4-12.4) fL Immature Gran % (Auto) 0.3 % Neut % (Auto) 85.5 % Lymph % (Auto) 9.6 % [place] % (Auto) 3.9 % Eos % (Auto) 0.3 % Baso % (Auto) 0.4 % Neut # (Auto) 10.43 H (1.40-6.50) K/uL Lymph # (Auto) 1.17 L (1.20-3.40) K/uL [place] # (Auto) 0.47 (0.11-0.59) K/uL Eos # (Auto) 0.04 (0.00-0.50) K/uL Baso # (Auto) 0.05 (0.00-0.20) K/uL Immature Gran # (Auto) 0.04 (0.01-0.20) K/uL PT 11.3 (9.0-12.0) Seconds INR 1.0 (0.9-1.1) POC pH (7.35-7.45) POC pCO2 (35-46) mmHg POC pO2 (80-95) mmHg POC HCO3 (19-24) antione/L POC Total CO2 (24-31) mmol/L POC Base Excess (-9-1.8) antione/L POC ABG O2 Sat (90-95) % VBG pH 7.25 L (7.36-7.41) VBG pCO2 58 H (38-50) mmHg VBG pO2 64 mmHg VBG HCO3 25 mmol/L VBG O2 Saturation 90.8 % VBG Base Excess -2.5 mEq/L POC Sodium (135-144) mmol/L Sodium 134 L (136-145) mmol/L POC Potassium (3.3-5.0) mmol/L Potassium 5.3 H (3.5-5.1) mmol/L Chloride 99 (98-107) mmol/L Carbon Dioxide 28 (21-32) mmol/L Anion Gap 7 (3-11) BUN 25 H (6-23) mg/dl Creatinine 1.25 H (0.6-1.2) mg/dl Est Cr Clr Drug Dosing 34.1 ml/min eGFR 43.57 BUN/Creatinine Ratio 20.0 (10-20) Glucose 295 H (70-99(Fasting)) mg/dl Calcium 9.3 (8.6-10.3) mg/dl Total Bilirubin 0.4 (0.2-1.0) mg/dl AST 23 (13-39) U/L ALT 24 (7-52) U/L Alkaline Phosphatase 70 (34-104) U/L Troponin I High Sens 35.5 H (0-14) pg/ml B-Natriuretic Peptide 2857 H (0-100) pg/ml Total Protein 7.2 (6.0-8.3) gm/dl Albumin 3.9 (3.4-5.0) gm/dl Globulin 3.3 (2.5-4.0) gm/dl Albumin/Globulin Ratio 1.2 (0.9-2) Adenovirus (PCR) Not Detected (NotDetected) B. pertussis DNA (PCR) Not Detected (NotDetected) B.parapertussis DNA PCR Not Detected (NotDetected) C. pneumoniae DNA (PCR) Not Detected (NotDetected) Coronavirus OC43 (PCR) Not Detected (NotDetected) Coronavirus HKU1 (PCR) Not Detected (NotDetected) Coronavirus 229E (PCR) Not Detected (NotDetected) SARS-CoV-2 (PCR) Not Detected (NotDetected) Coronavirus NL63 (PCR) Not Detected (NotDetected) Human Metapneumovir PCR Not Detected (NotDetected) Influenza Type A (PCR) Not Detected (NotDetected) Influenza Type B (PCR) Not Detected (NotDetected) M. pneumoniae (PCR) Not Detected (NotDetected) Parainfluenza 1 (PCR) Not Detected (NotDetected) Parainfluenza 2 (PCR) Not Detected (NotDetected) Parainfluenza 3 (PCR) Not Detected (NotDetected) Parainfluenza 4 (PCR) Not Detected (NotDetected) RSV (PCR) Not Detected (NotDetected) Entero/Rhino (PCR) Not Detected (NotDetected) 06/09/24 06/09/24 Range/Units 11:47 12:37 WBC (4.8-10.8) K/ul RBC (4.20-5.40) M/uL Hgb (12.0-16.0) g/dl POC Hgb 10.5 L (12.0-16.0) g/dl Hct (37.0-47.0) % POC Hct 31 L (37-47) % MCV (80.0-100.0) fL MCH (25.0-34.0) pg MCHC (32.0-36.0) g/dL RDW Std Deviation (36.4-46.3) fL RDW Coeff of Sarina (11.5-14.5) % Plt Count (130-400) K/uL MPV (9.4-12.4) fL Immature Gran % (Auto) % Neut % (Auto) % Lymph % (Auto) % [place] % (Auto) % Eos % (Auto) % Baso % (Auto) % Neut # (Auto) (1.40-6.50) K/uL Lymph # (Auto) (1.20-3.40) K/uL [place] # (Auto) (0.11-0.59) K/uL Eos # (Auto) (0.00-0.50) K/uL Baso # (Auto) (0.00-0.20) K/uL Immature Gran # (Auto) (0.01-0.20) K/uL PT (9.0-12.0) Seconds INR (0.9-1.1) POC pH 7.30 L (7.35-7.45) POC pCO2 52 H (35-46) mmHg POC pO2 93 (80-95) mmHg POC HCO3 26 H (19-24) antione/L POC Total CO2 27 (24-31) mmol/L POC Base Excess -1.0 (-9-1.8) antione/L POC ABG O2 Sat 96.0 H (90-95) % VBG pH (7.36-7.41) VBG pCO2 (38-50) mmHg VBG pO2 mmHg VBG HCO3 mmol/L VBG O2 Saturation % VBG Base Excess mEq/L POC Sodium 133 L (135-144) mmol/L Sodium (136-145) mmol/L POC Potassium 5.3 H (3.3-5.0) mmol/L Potassium (3.5-5.1) mmol/L Chloride (98-107) mmol/L Carbon Dioxide (21-32) mmol/L Anion Gap (3-11) BUN (6-23) mg/dl Creatinine (0.6-1.2) mg/dl Est Cr Clr Drug Dosing ml/min eGFR BUN/Creatinine Ratio (10-20) Glucose (70-99(Fasting)) mg/dl Calcium (8.6-10.3) mg/dl Total Bilirubin (0.2-1.0) mg/dl AST (13-39) U/L ALT (7-52) U/L Alkaline Phosphatase (34-104) U/L Troponin I High Sens 34.1 H (0-14) pg/ml B-Natriuretic Peptide (0-100) pg/ml Total Protein (6.0-8.3) gm/dl Albumin (3.4-5.0) gm/dl Globulin (2.5-4.0) gm/dl Albumin/Globulin Ratio (0.9-2) Adenovirus (PCR) (NotDetected) B. pertussis DNA (PCR) (NotDetected) B.parapertussis DNA PCR (NotDetected) C. pneumoniae DNA (PCR) (NotDetected) Coronavirus OC43 (PCR) (NotDetected) Coronavirus HKU1 (PCR) (NotDetected) Coronavirus 229E (PCR) (NotDetected) SARS-CoV-2 (PCR) (NotDetected) Coronavirus NL63 (PCR) (NotDetected) Human Metapneumovir PCR (NotDetected) Influenza Type A (PCR) (NotDetected) Influenza Type B (PCR) (NotDetected) M. pneumoniae (PCR) (NotDetected) Parainfluenza 1 (PCR) (NotDetected) Parainfluenza 2 (PCR) (NotDetected) Parainfluenza 3 (PCR) (NotDetected) Parainfluenza 4 (PCR) (NotDetected) RSV (PCR) (NotDetected) Entero/Rhino (PCR) (NotDetected) Administered Medications Discontinued Medications Furosemide (Furosemide 40 Mg/4 Ml Vial) 40 mg IV ONE ONE Stop: 06/09/24 10:51 Last Admin: 06/09/24 11:04 Dose: 40 mg Documented By: Ioversol (Optiray 320 125ml) 112 ml IV ONCE ONE Stop: 06/09/24 12:03 Last Admin: 06/09/24 12:03 Dose: 112 ml Documented By: [facility] Imaging Data Radiologist's Impression: Chest X-Ray 06/09/24 09:57 XR chest 1V portable CLINICAL HISTORY: Dyspnea COMPARISON STUDY: 05/31/2024 FINDINGS: Stable CABG. Stable cardiomegaly with mild pulmonary vascular congestion. Stable interstitial and faint patchy pulmonary opacities in the lung bases with mild blunting of the costophrenic angles. No pneumothorax. IMPRESSION: Stable exam. ACT 112: Negative or not required by law. Electronically signed by: Joshua Singh M.D. 06/09/2024 10:15 AM Chest CTA 06/09/24 11:18 CT angio chest PE protocol CT DOSE: 945.04 mGy.cm HISTORY: PE. TECHNIQUE: Multiple CTA images of the chest were obtained after the intravenous administration of ml Optiray. Coronal and sagittal MIPS were obtained from the axial data set and were submitted for review. All measurements were obtained according to NASCET criteria. A dose lowering technique was utilized adhering to the principles of ALARA. COMPARISON STUDY: 09/28/2023 FINDINGS: There is prior CABG. There are diffuse coronary artery and aortic calcifications. There is mild cardiomegaly with mild prominence of the pulmonary vasculature consistent with CHF. There are bilateral pleural effusions, small on the left and moderate on the right with moderate adjacent compressive atelectasis at the lower lung lobes. There is septal thickening and mild scattered groundglass pulmonary opacity consistent with pulmonary edema. No pneumothorax. Stable enlarged multinodular right thyroid lobe. No enlarged adenopathy. No pulmonary embolism. No thoracic aortic dissection or aneurysm. There are moderate thoracic spine degenerative changes. IMPRESSION: 1. No pulmonary embolism seen. 2. CHF with pulmonary edema and pleural effusions. ACT 112: Negative or not required by law. The above report was generated using voice recognition software. It may contain grammatical, syntax or spelling errors. Electronically signed by: Joshua Singh M.D. 06/09/2024 12:41 PM Discharge Plan Visit Data Chief Complaint: Shortness of Breath/Dyspnea ED Provider: Camron Byrne Discharge Problem: Dyspnea Patient Disposition: Admitted As Inpatient Forms Stand Alone Forms: [facility] Prescriptions Prescriptions: No Action (DME) blood-glucose meter [OneTouch Verio Meter] Misc See Rx Instructions .ROUTE .MEDSUPPLY Qty: 1 0RF Rx Instructions: Test blood sugar two times daily (DME) OneTouch Verio test strips Strip See Rx Instructions .ROUTE .MEDSUPPLY Qty: 300 3RF Dose Instruction: As directed Rx Instructions: test blood sugar three times a day albuterol sulfate 90 mcg/actuation HFA aerosol inhaler 2 puff INHALATION Q6H PRN (Reason: Wheezing) Qty: 18 3RF metformin 1,000 mg tablet 1,000 mg PO BID Qty: 180 3RF fluoxetine [Prozac] 20 mg capsule 20 mg PO QAM Qty: 90 3RF amlodipine 5 mg tablet 5 mg PO QAM Qty: 90 3RF Patient Comments: TAKES 7.5MG QAM clopidogrel 75 mg tablet 75 mg PO DAILY Qty: 90 3RF prevagen 1 tab PO DAILY (DME) blood-glucose meter [OneTouch Verio Flex meter] Misc See Rx Instructions .ROUTE .MEDSUPPLY Qty: 1 0RF Rx Instructions: As directed (DME) lancets [OneTouch Delica Plus Lancet] 33 gauge misc See Rx Instructions .ROUTE .MEDSUPPLY Dose Instruction: As directed Rx Instructions: test blood sugar 2 x daily anastrozole 1 mg tablet 1 mg PO QAM coenzyme Q10 200 mg capsule 200 mg PO QAM Novolin N FlexPen 100 unit/mL (3 mL) insulin pen See Rx Instructions subcut .COMPLEX 90 Days Qty: 90 3RF Rx Instructions: 48 unit in AM; 44 units PM subcutaneously; Novolin R FlexPen 100 unit/mL (3 mL) insulin pen 30 unit subcut BID 90 Days Qty: 60 2RF (DME) pen needle, diabetic [BD Ultra-Fine Suzette Pen Needle] 32 gauge x 5/32" needle See Dose Instructions .ROUTE .MEDSUPPLY Qty: 400 3RF Rx Instructions: use 4 daily budesonide 0.5 mg/2 mL suspension for nebulization 0.5 mg inhalation BID Qty: 60 1RF cyanocobalamin (vitamin B-12) 2,500 mcg tablet 1,000 mcg PO .3XWK Rx Instructions: 1,000 mcg orally 3x per week; atorvastatin 80 mg tablet 80 mg PO QPM Qty: 90 3RF nitroglycerin [Nitrostat] 0.4 mg tablet, sublingual 0.4 mg Sublingual Q5M PRN (Reason: chest pain) Qty: 25 5RF Rx Instructions: PLACE 1 TAB UNDER TONGUE Q5M FOR UP TO 3 DOSES PRN CHEST PAIN. CALL 911 IF PAIN PERSISTS (DME) nebulizer and compressor Device See Rx Instructions .ROUTE .MEDSUPPLY Qty: 1 0RF Rx Instructions: As directed ipratropium-albuterol 0.5 mg-3 mg(2.5 mg base)/3 mL solution for nebulization 3 ml inhalation Q4H PRN (Reason: wheezing) Qty: 180 1RF primidone [Mysoline] 50 mg tablet 100 mg PO BID 90 Days Qty: 360 1RF alendronate 70 mg tablet 70 mg PO .COMPLEX Qty: 5 11RF Rx Instructions: 70 mg orally once weekly; PreserVision AREDS-2 250-90-40-1 mg Capsule 1 tab PO BID (DME) Spacer for Inhaler Misc See Rx Instructions .Route Qty: 1 0RF Rx Instructions: Use with albuterol inhaler as needed every 2 hours for wheezing. choline [id number] 1 tab PO QAM metoprolol succinate 50 mg Tablet Extended Release 24 Hr 100 mg PO QAM Qty: 30 0RF Entresto 24-26 mg Tablet 1 tab PO BID Qty: 60 0RF isosorbide mononitrate 30 mg tablet extended release 24 hr 30 mg PO UD Rx Instructions: 30 mg po daily. Listed as an adverse reaction on pt chart. furosemide 40 mg tablet 20 mg PO UD Rx Instructions: 20 mg po qam. Per fill history, 3/ medication was filled for 40 mg po daily. Note from heart failure visit states "taking lasix 40 mg daily. Can likely decrease to prn pending on today's labs". Referrals Referrals: Bashir Melgar, [Primary Care Provider] -
[2024-06-09 10:14] LABS: Basophils # (auto) 0.05 K/uL (0.00-0.20); Basophils % (auto) 0.4 %; Eosinophils # (auto) 0.04 K/uL (0.00-0.50); Eosinophils % (auto) 0.3 %; Hematocrit (blood only) 29.3 % (37.0-47.0); Hemoglobin 9.4 g/dl (12.0-16.0); Immature Granulocytes # (auto) 0.04 K/uL (0.01-0.20); Immature Granulocytes % (auto) 0.3 %; Lymphocytes # (auto) 1.17 K/uL (1.20-3.40); Lymphocytes % (auto) 9.6 %; Mean Corpuscular Hemoglobin 29.3 pg (25.0-34.0); Mean Corpuscular Hgb Conc 32.1 g/dL (32.0-36.0); Mean Corpuscular Volume 91.3 fL (80.0-100.0); Mean Platelet Volume 10.3 fL (9.4-12.4); Monocytes # (auto) 0.47 K/uL (0.11-0.59); Monocytes % (auto) 3.9 %; Neutrophils # (auto) 10.43 K/uL (1.40-6.50); Neutrophils % (auto) 85.5 %; Platelet Count 293 K/uL (130-400); RDW Coefficient of Variation 15.5 % (11.5-14.5); RDW Standard Deviation 50.6 fL (36.4-46.3); Red Blood Count 3.21 M/uL (4.20-5.40)
--- NOTE | 2024-06-09 10:16 | XRay Report ---
XR chest 1V portable CLINICAL HISTORY: Dyspnea COMPARISON STUDY: 05/31/2024 FINDINGS: Stable CABG. Stable cardiomegaly with mild pulmonary vascular congestion. Stable interstiti al and faint patchy pulmonary opacities in the lung bases with mild blunting of the costophrenic angl es. No pneumothorax. IMPRESSION: Stable exam. ACT 112: Negative or not required by law. Electronically signed by: Joshua Singh M.D. 06/09/2024 10:15 AM
[2024-06-09 10:24] LABS: Prothrombin Time 11.3 Seconds (9.0-12.0)
[2024-06-09 10:34] LABS: Albumin Globulin Ratio 1.2 (0.9-2); Albumin Level 3.9 gm/dl (3.4-5.0); Bilirubin,Total 0.4 mg/dl (0.2-1.0); Calcium 9.3 mg/dl (8.6-10.3); Creatinine Clr Calc Pharmacy 34.1 ml/min; Globulin 3.3 gm/dl (2.5-4.0); Potassium 5.3 mmol/L (3.5-5.1); Total Protein 7.2 gm/dl (6.0-8.3)
[2024-06-09 10:40] LABS: Troponin I High Sensitivity 35.5 pg/ml (0-14)
[2024-06-09] MEDS: FUROSEMIDE 40 MG/4 ML VIAL IV ONE (11:04)
[2024-06-09 11:31] LABS: Adenovirus PCR Not Detected (NotDetected); Bordetella parapertussis PCR Not Detected (NotDetected); Bordetella pertussis PCR Not Detected (NotDetected); Chlamydia pneumoniae PCR Not Detected (NotDetected); Coronavirus 229E PCR Not Detected (NotDetected); Coronavirus CoV-2 (COVID19)PCR Not Detected (NotDetected); Coronavirus HKU1 PCR Not Detected (NotDetected); Coronavirus NL63 PCR Not Detected (NotDetected); Coronavirus OC43PCR Not Detected (NotDetected); Human Metapneumovirus PCR Not Detected (NotDetected); Influenza A PCR Not Detected (NotDetected); Influenza B PCR Not Detected (NotDetected); Mycoplasma pneumoniae PCR Not Detected (NotDetected); Parainfluenza Virus 1 PCR Not Detected (NotDetected); Parainfluenza Virus 2 PCR Not Detected (NotDetected); Parainfluenza Virus 3 PCR Not Detected (NotDetected); Parainfluenza Virus 4 PCR Not Detected (NotDetected); Respiratory Syncytial VirusPCR Not Detected (NotDetected); Rhinovirus/Enterovirus PCR Not Detected (NotDetected)
[2024-06-09 11:38] LABS: Base Excess VBG -2.5 mEq/L; HCO3 VBG 25 mmol/L; Oxygen Saturation VBG 90.8 %; PCO2 VBG 58 mmHg (38-50); PO2 VBG 64 mmHg; pH VBG 7.25 (7.36-7.41)
--- NOTE | 2024-06-09 11:45 | History & Physical Report ---
Date of Service June 09, 2024 Assessment & Plan (1) Acute HFrEF (heart failure with reduced ejection fraction): (2) JOBY (acute kidney injury): (3) Uncontrolled type 2 diabetes mellitus with hyperglycemia, with long-term current use of insulin: (4) CAD (coronary artery disease): (5) Hypertension: (6) Dyslipidemia: (7) Breast cancer: Plan Ms. Xie is an 78 y/o female with PMHx of CAD S/P CABGx3/Ischemic Cardiomyopathy/HFrEF (30-45%), HTN, HLD, T2DM (A1c 10.2), DCIS S/P Mastectomy, CKD, Chronic Anemia, Tremor/Gait Disorder who presents to the ED c/o SOB since this AM. #Acute Hypoxic Respiratory Failure on BIPAP: -2/2 acute on chronic HFrEF vs PE vs infectious -Pt does not require O2 at baseline. Found to be mildly hypoxic at 88% requiring BIPAP placement due to tachypnea. She was given Lasix 40 mg IV x 1 in ED -CXR shows stable cardiomegaly with mild pulmonary vascular congestion with stable interstitial and faint patchy pulmonary opacities in the lung bases with mild blunting of the costophrenic angles - not changed much from prior -CTA ordered to R/O PE given multiple hospital admissions/no hospital admissions - reported back pain and largely unchanged CXR; stat echo to determine any wall motion changes or R heart strain give her CAD status and previous cath findings -Continue BIPAP at current ER settings and can be weaned as appropriate #Acute Exacerbation of HFrEF//CAD S/P CABG x 3//Ischemic Cardiomyopathy//HTN/ /HLD: -Most recent echo with EF 35-40%; RVSP at 54 mmHg however not as significant on heart cath assessment -Per CHF clinic note from 06/06 - was instructed to move to PRN dosing as she was doing well with fluid status; Previous cath earlier this month with ongoing occlusive disease -Will continue Lasix 40 mg IV BID; monitor labs/Cr -Continue amlodipine 5 mg; Atorvastatin 80 mg daily; Plavix 75 mg daily; Toprol XL 100 mg daily; Entresto BID -Consult cardiology- follows with [facility] [place] [place] [facility] #JOBY on CKD (Baseline Cr 1.0-1.1) -Mildly elevated at 1.2 - will need to monitor in setting of contrast from CTA -Daily labs for now;will continue Entresto at this time but will be mindful with repeat Cr #Hyperkalemia: -Mildly elevated at 5.3; will monitor with diuresis #T2DM, Uncontrolled - A1c 10.2: -Hold home regimen; SSI and consult glycemic pharmacist #Chronic Anemia: Baseline HGB 10-11 -Do not suspect contributing at this time. Will monitor Tremor/Gait Disorder: -Primidone 100 mg BID DCIS S/P Mastectomy: -Continue Anastrozole daily CODE STATUS: FULL DVT PROPHYLAXIS: Heparin SC BID Disposition: Admit to PCU for CHF exacerbation History of Present Illness Chief Complaint: SOB Primary Care Provider: Bashir Melgar DO Ms. Xie is an 78 y/o female with PMHx of CAD S/P CABGx3/Ischemic Cardiomyopathy/HFrEF (30-45%), HTN, HLD, T2DM (A1c 10.2), DCIS S/P Mastectomy, CKD, Chronic Anemia, Tremor/Gait Disorder who presents to the ED c/o SOB since this AM. Pt awoke around midnight with increased SOB compared to her baseline ESPINO. She also noted headache and back pain that has since resolved. She was just evaluated in CHF clinic and was able to go to PRN Lasix due to euvolemic status. Patient and daughter do not report any changes in diet. She was noted to be hypoxic at 88% on RA in ED and initially placed on nasal cannula. While in the ED she became more tachypneic and was placed on BIPAP. Pt reports improvement with BIPAP but remained tachypneic and tachycardic. She is still able to answer questions appropriately and baseline mentation. She was recently admitted on 05/31 with similar presentation requiring BIPAP and diuresis. During previous admission, she underwent cardiac cath which showed prior LAD stent is now occluded and severe CAD involving the circumflex system. Medical therapy was recommended at that time. Currently improving with BIPAP and diuresis. Allergies Allergy/AdvReac Type Severity Reaction Status Date / Time lisinopril Allergy Intermediate Cough Verified 06/06/24 12:58 isosorbide AdvReac Headache Verified 06/06/24 12:58 Home Medications Medication Instructions Recorded Confirmed Type anastrozole 1 mg tablet 1 mg PO QAM 11/08/18 06/09/24 History coenzyme Q10 200 mg capsule 200 mg PO QAM 01/06/20 06/09/24 History lancets 33 gauge (OneTouch Delica 02/09/20 06/06/24 History Plus Lancet) blood-glucose meter (OneTouch #1 ea 07/29/20 06/06/24 Rx Verio Meter) vit C 250 mg-vit E 90 mg-zinc 40 1 tab PO BID 09/26/21 06/09/24 History mg-copper 1 [id number] capsule (PreserVision AREDS-2) Spacer for Inhaler #1 ea 09/27/21 06/06/24 Rx blood-glucose meter (OneTouch #1 ea 03/24/22 06/06/24 Rx Verio Flex Meter) prevagen 1 tab PO DAILY 05/29/22 06/09/24 History insulin NPH isoph U-100 human 100 See Rx Instructions subcut 05/23/23 06/09/24 Rx unit/mL (3 mL) subcutaneous pen .COMPLEX 90 days #90 mL (Novolin N FlexPen) insulin regular human 100 unit/mL 30 unit (0.3 mL) subcut BID 90 05/23/23 06/09/24 Rx (3 mL) subcutaneous pen (Novolin R days #60 mL FlexPen) pen needle, diabetic 32 gauge x #400 ea 05/23/23 06/06/24 Rx 5/32" (BD Ultra-Fine Suzette Pen Needle) ipratropium 0.5 mg-albuterol 3 mg 3 ml inhalation Q4H PRN wheezing 07/10/23 06/09/24 Rx (2.5 mg base)/3 mL nebulization #180 mL soln nebulizer and compressor #1 ea 07/10/23 06/06/24 Rx OneTouch Verio test strips (blood #300 ea 07/30/23 06/06/24 Rx sugar diagnostic) budesonide 0.5 mg/2 mL suspension 0.5 mg (2 mL) inhalation BID #60 mL 07/30/23 06/09/24 Rx for nebulization alendronate 70 mg tablet 70 mg PO .COMPLEX #5 tabs 12/19/23 06/09/24 Rx cyanocobalamin (vitamin B-12) 1,000 mcg PO .3XWK 12/19/23 06/09/24 History 2,500 mcg tablet atorvastatin 80 mg tablet 80 mg PO QPM #90 tabs 01/08/24 06/09/24 Rx nitroglycerin 0.4 mg sublingual 0.4 mg sublingual Q5M PRN chest 01/08/24 06/09/24 Rx tablet (Nitrostat) pain #25 tabs albuterol sulfate 90 mcg/actuation 2 puff inhalation Q6H PRN Wheezing 01/17/24 06/09/24 Rx aerosol inhaler #18 grams metformin 1,000 mg tablet 1,000 mg PO BID #180 tabs 01/21/24 06/09/24 Rx fluoxetine 20 mg capsule (Prozac) 20 mg PO QAM #90 caps 04/24/24 06/09/24 Rx primidone 50 mg tablet (Mysoline) 100 mg (2 x 50 mg) PO BID 90 days 05/06/24 06/09/24 Rx #360 tabs amlodipine 5 mg tablet 5 mg PO QAM #90 tabs 05/07/24 06/09/24 Rx clopidogrel 75 mg tablet 75 mg PO DAILY #90 tabs 05/28/24 06/09/24 Rx choline [id number] 1 tab PO QAM 05/31/24 06/09/24 History metoprolol succinate 50 mg 100 mg (2 x 50 mg) PO QAM #30 tabs 06/04/24 06/09/24 Rx tablet,extended release 24 hr sacubitril 24 mg-valsartan 26 mg 1 tab PO BID #60 tabs 06/04/24 06/09/24 Rx tablet (Entresto) furosemide 40 mg tablet 20 mg PO UD 06/09/24 06/09/24 History isosorbide mononitrate 30 mg 30 mg PO UD 06/09/24 06/09/24 History tablet,extended release 24 hr Past Med/Surg History Problem List (Updated 06/09/24 @ 15:28 by Camron Byrne DO) Dyspnea (Acute) Mitral regurgitation Pulmonary hypertension Cardiomyopathy S/P coronary artery stent placement Acute HFrEF (heart failure with reduced ejection fraction) Flash pulmonary edema (Acute) Diabetes NSTEMI (non-ST elevated myocardial infarction) CHF exacerbation Dyspnea (Acute) JOBY (acute kidney injury) (Acute) Hypomagnesemia (Acute) UTI (urinary tract infection) Diarrhea (Acute) Generalized weakness (Acute) Gait disorder Allergic rhinitis Overweight (BMI 25.0-29.9) Abnormal PFT Dyspnea on exertion Solitary pulmonary nodule Wheeze Postmenopausal estrogen deficiency Sore throat Congestion of nasal sinus Cough Headache Bacterial sinusitis Sensorineural hearing loss of both ears Diabetic nephropathy associated with type 2 diabetes mellitus Uncontrolled type 2 diabetes mellitus with hyperglycemia, with long-term current use of insulin Seborrheic keratoses Abrasion, right lower leg, initial encounter Subacromial bursitis Rotator cuff tendinitis Toe fracture Glenohumeral arthritis Toe swelling Left shoulder pain CAD (coronary artery disease) (Chronic) 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) Tremor (Chronic) Osteopenia (Acute) Obesity (Acute) Hypertension (Chronic) Dyslipidemia (Chronic) Depression (Chronic) Breast cancer (Chronic 07/2017) left breast infiltrating ductal CA dx 07/2017 (ER+/HI+, Her 2 -) and right breast invasive ductal CA dx 11/2017 (ER+/HI+, Her 2 +), s/p elective B/L mastectomy with right axillary dissection (0/7 nodes +), on Arimedex since Jan 2018 Arthralgia of multiple sites (Acute) Arteriosclerotic cardiovascular disease (Acute) Chronic kidney disease Type 2 diabetes mellitus treated with insulin (Chronic) 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 Sinusitis Parkinsonism Anemia (Chronic) Tremor of both hands (Chronic) Internal hemorrhoid (Chronic) Gait instability (Chronic) Hypercalcemia Hypomagnesemia Hypophosphatemia Medical History Pulmonary edema Arthritis Hx of breast cancer Anxiety Neuropathy Myocardial Infarction 2010 History of COVID-19 01/2021>MILD SYMPTOMS *RESOLVED Thrombocytopenia DM type 2 (diabetes mellitus, type 2) IDDM CAD (coronary artery disease) Tremor L ARM ON OCC-NO DIAGNOSIS Hypertension Hyperlipidemia Unstable angina (03/16/14) Surgical History H/O bilateral mastectomy SURGERY ONLY>(NO LIMB RESTRICTION) NO RECONSTRUCTION H/O lumpectomy LEFT X 2 History of tooth extraction History of surgery Right Axillary Dissection, Bilateral Breast Scar Revision - 12/2017 [facility] History of colonoscopy History of trigger finger right thumb release History of open reduction and internal fixation (ORIF) procedure RT ANKLE History of cataract surgery RT/LEFT History of cardiac cath STENTS 06/2010 IN [place] (DIAG AND CX), 1 STENT 04/2011, AND 1 STENT 2013 IN [place] History of coronary artery bypass graft 3 VESSELS-2010 AT [place] *FOLLOWS WITH DR. HAMMER Family History Sister Breast cancer Father Alcoholism Mother Heart disease Uncle Heart disease Daughter Family history of diabetes mellitus Other No family history of adverse response to anesthesia Denies family history of Ovarian cancer Prostate cancer Myocardial infarction Colorectal cancer Social History Smoking Status: Never smoker Tobacco Type: Cigarettes Age Started Using Tobacco: 13; Age Quit Using Tobacco: 43; packs per day: 0.75; Second Hand Exposure: No; Do You Dip or Chew Tobacco: No; Tobacco Cessation Education Requested by Patient: No Hx Alcohol Use: No Hx Substance Use: No Preferred Language: Kiswahili Communication Ability: Effective Visual Impairment: No Limitations Hearing Ability: Normal Nuclear Logging Engineer Required: Voice Beliefs That Will Affect Care: None marital status: Current Living Situation: Spouse Current Living Situation Comment: single story house current occupational status: retired 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 [employer] Other Information That Helps Us Care for You: No Feels Safe at Home: Yes Safety Concerns: Feels Safe At This Time Childhood Exposure to Second-Hand Smoke: Yes Diet: regular caffeine: Yes Dental Care, Regularly: No Physical Activity Frequency: Does not Exercise Seatbelt Use: always Sunscreen Use: Yes Assistive Devices: Cane Review of Systems Review of Systems: REVIEW OF SYSTEMS General/Constitutional: Denies fever/chills, fatigue, weight gain Cardiovascular: Denies chest pain Respiratory: + SOB; Denies cough, sputum, wheezing GI: Denies nausea, vomiting, abdominal pain, constipation, diarrhea, melena/hematochezia : Denies dysuria Neurologic: Denies dizziness/lightheadedness Physical Exam Physical Exam: PHYSICAL EXAM General Appearance: WDWN in mild distress who is A&O x 3 HEENT: Head is normocephalic/atraumatic; Hearing grossly intact; BIPAP placed Neck: Supple; Trachea midline; Neg JVD Heart: Tachycardiac; regular rhythm Lungs: crackles at bases bilat; Respirations mildly labored with bipap on Abdomen: Soft, non-tender, bloating; Positive BS x 4 quadrants Extremities: Neg cyanosis; trace pitting edema bilateral in lower extremities Neurological: Speech clear; Neg focal neurologic deficits Psychiatric: Appropriate mood/affect Skin: Normal Color; Warm/Dry Results & Data Results & Data Vital Signs (Past 12 Hours) Vital Signs Temp Pulse Pulse Resp BP BP Pulse Ox 06/09/24 11:00 98 H 36 H 197/130 H 100 06/09/24 10:58 98 H 34 H 100 06/09/24 10:33 90 30 H 96 06/09/24 10:30 163/96 H 06/09/24 10:03 85 28 H 98 06/09/24 10:03 36.5 C 85 28 H 158/101 H 98 06/09/24 10:03 88 L 06/09/24 10:03 36.5 C 85 28 H 158/101 H 88 L 06/09/24 10:03 06/09/24 10:00 83 28 H 158/101 H 100 O2 Del Method O2 Flow Rate FiO2 06/09/24 11:00 BiPAP 06/09/24 10:58 35 06/09/24 10:33 Nasal Cannula 2 06/09/24 10:30 06/09/24 10:03 Nasal Cannula 2 06/09/24 10:03 Nasal Cannula 2 06/09/24 10:03 Room Air 0 06/09/24 10:03 Room Air 06/09/24 10:03 Nasal Cannula 2 06/09/24 10:00 Nasal Cannula 2 Laboratory Results Laboratory Results - last 24 hr 06/09/24 06/09/24 06/09/24 09:50 09:58 11:15 WBC 12.20 H RBC 3.21 L Hgb 9.4 L Hct 29.3 L MCV 91.3 MCH 29.3 MCHC 32.1 RDW Std Deviation 50.6 H RDW Coeff of Sarina 15.5 H Plt Count 293 MPV 10.3 Immature Gran % (Auto) 0.3 Neut % (Auto) 85.5 Lymph % (Auto) 9.6 Navarro % (Auto) 3.9 Eos % (Auto) 0.3 Baso % (Auto) 0.4 Neut # (Auto) 10.43 H Lymph # (Auto) 1.17 L Navarro # (Auto) 0.47 Eos # (Auto) 0.04 Baso # (Auto) 0.05 Immature Gran # (Auto) 0.04 PT 11.3 INR 1.0 VBG pH 7.25 L VBG pCO2 58 H VBG pO2 64 VBG HCO3 25 VBG O2 Saturation 90.8 VBG Base Excess -2.5 Sodium 134 L Potassium 5.3 H Chloride 99 Carbon Dioxide 28 Anion Gap 7 BUN 25 H Creatinine 1.25 H Est Cr Clr Drug Dosing 34.1 eGFR 43.57 BUN/Creatinine Ratio 20.0 Glucose 295 H Calcium 9.3 Total Bilirubin 0.4 AST 23 ALT 24 Alkaline Phosphatase 70 Troponin I High Sens 35.5 H B-Natriuretic Peptide 2857 H Total Protein 7.2 Albumin 3.9 Globulin 3.3 Albumin/Globulin Ratio 1.2 Adenovirus (PCR) Not Detected B. pertussis DNA (PCR) Not Detected B.parapertussis DNA PCR Not Detected C. pneumoniae DNA (PCR) Not Detected Coronavirus OC43 (PCR) Not Detected Coronavirus HKU1 (PCR) Not Detected Coronavirus 229E (PCR) Not Detected SARS-CoV-2 (PCR) Not Detected Coronavirus NL63 (PCR) Not Detected Human Metapneumovir PCR Not Detected Influenza Type A (PCR) Not Detected Influenza Type B (PCR) Not Detected M. pneumoniae (PCR) Not Detected Parainfluenza 1 (PCR) Not Detected Parainfluenza 2 (PCR) Not Detected Parainfluenza 3 (PCR) Not Detected Parainfluenza 4 (PCR) Not Detected RSV (PCR) Not Detected Entero/Rhino (PCR) Not Detected Diagnostic Findings Chest X-Ray 06/09/24 09:57 XR chest 1V portable CLINICAL HISTORY: Dyspnea COMPARISON STUDY: 05/31/2024 FINDINGS: Stable CABG. Stable cardiomegaly with mild pulmonary vascular congestion. Stable interstitial and faint patchy pulmonary opacities in the lung bases with mild blunting of the costophrenic angles. No pneumothorax. IMPRESSION: Stable exam. ACT 112: Negative or not required by law. Electronically signed by: Joshua Singh M.D. 06/09/2024 10:15 AM Code Status & VTE Plan Code Status FULL CODE Supervising Physician Co-Signing Physician Notes Patient seen and examined, chart reviewed, case discussed with Shanae Sharma PA-C and I agree with the assessment and plan as above except as otherwise noted Labs and images reviewed William is an 78-year-old female with past medical history of HFrEF last EF 35- 40%, CAD s/p CABG and PCI to LAD/diagonal/circumflex with multivessel CAD seen on 06/03/2024 with occluded LAD stent recommended for medical therapy but for which could be considered for circumflex PCI in the future. Patient's aspirin was discontinued from Plavix monotherapy due to gastric ulcer and melena at that time. Entresto was started 06/02/2024. She presents to the ER with worsening dyspnea, much worse since midnight and woke from sleep with shortness of breath. Hypoxic on arrival to the ER was placed on nasal cannula with some improvement however had increased work of breathing and hypoxia and was switched to PPV. Her BNP was 2857. Chest x-ray with relatively stable exam with mild pulmonary vascular congestion and patchy opacities. At bedside patient appears uncomfortable, is on BiPAP. Tachypneic at 36. Endorses shortness of breath. Lungs are with some basilar crackles however without overt rales. No significant lower extremity swelling. Given significantly increased work of breathing and which is out of proportion with findings on x-ray recommend expanded workup. She has recently been hospitalized and is not on anticoagulation. Differential could also include infectious (patient has had fevers and severe chills), DVT/PE, and cardiogenic given recent history and known residual CAD. Echo pending to evaluate for wall motion and any right heart strain. CTA ordered. For/benefits of contrast discussed with patient and family at bedside given very mild JOBY, agree with CTA at this time. VBG with 7.2 5/58/64/25 consent with acute respiratory acidosis. Repeat ABG [id number] ordered to reevaluate following BiPAP and for pO2. Subsequently CTA with no evidence of PE, does show bilateral pleural effusions and pulmonary edema consistent with CHF. Continue BiPAP, diuresis medical management as above. PG Care Time/CCT Total # of Minutes Spent Total Time Spent with Patient: Total time spent is greater than 50% in coordination of care (as documented) at patient's floor/unit and/or counseling patient: Coding Level of Care Code 46872 INT INP/OBS CARE 3/75MIN Diagnoses Acute HFrEF (heart failure with reduced ejection fraction) I50.21 JOBY (acute kidney injury) N17.9 Uncontrolled type 2 diabetes mellitus with hyperglycemia, with long-term current use of insulin E11.65; Z79.4 CAD (coronary artery disease) I25.10 Hypertension I10 Dyslipidemia E78.5 Breast cancer C50.919
[2024-06-09] MEDS: OPTIRAY 320 125ml IV ONE (12:03)
[2024-06-09 12:31] LABS: iSTAT Arterial Blood Gas HCO3 26 meg/L (19-24); iSTAT Arterial Blood Gas pCO2 52 mmHg (35-46); iSTAT Arterial Blood Gas pO2 93 mmHg (80-95); iSTAT Carbon Dioxide 27 mmol/L (24-31); iSTAT Hematocrit 31 % (37-47); iSTAT Hemoglobin 10.5 g/dl (12.0-16.0); iSTAT Potassium 5.3 mmol/L (3.3-5.0); iSTAT Sodium 133 mmol/L (135-144)
--- NOTE | 2024-06-09 12:43 | CT Scan Report ---
CT angio chest PE protocol CT DOSE: 945.04 mGy.cm HISTORY: PE. TECHNIQUE: Multiple CTA images of the chest were obtained after the intravenous administration of ml Optiray. Coronal and sagittal MIPS were obtained from the axial data set and were submitted for revi ew. All measurements were obtained according to NASCET criteria. A dose lowering technique was utili zed adhering to the principles of ALARA. COMPARISON STUDY: 09/28/2023 FINDINGS: There is prior CABG. There are diffuse coronary artery and aortic calcifications. There is mild cardiomegaly with mild prominence of the pulmonary vasculature consistent with CHF. There are bi lateral pleural effusions, small on the left and moderate on the right with moderate adjacent julian sive atelectasis at the lower lung lobes. There is septal thickening and mild scattered groundglass p ulmonary opacity consistent with pulmonary edema. No pneumothorax. Stable enlarged multinodular right thyroid lobe. No enlarged adenopathy. No pulmonary embolism. No thoracic aortic dissection or aneury sm. There are moderate thoracic spine degenerative changes. IMPRESSION: 1. No pulmonary embolism seen. 2. CHF with pulmonary edema and pleural effusions. ACT 112: Negative or not required by law. The above report was generated using voice recognition software. It may contain grammatical, syntax o r spelling errors. Electronically signed by: Joshua Singh M.D. 06/09/2024 12:41 PM
--- NOTE | 2024-06-09 14:36 | XCELERA ---
[id number]
[2024-06-09] MEDS ORDERED: GLUCAGON FOR INJ 1 MG VIAL SQ PRN (16:14)
[2024-06-09] MEDS ORDERED: ALBUTEROL HFA 8 GM INHALER INH PRN (16:14)
[2024-06-09] MEDS ORDERED: ALUMINUM/MAGNESIUM SUSP 30 ML UDC PO PRN (16:14)
[2024-06-09] MEDS ORDERED: DEXTROSE 50% 50 ML SYRINGE IV PRN (16:14)
[2024-06-09] MEDS ORDERED: CARBOHYDRATES FOR HYPOGLYCEMIA PO PRN (16:14)
[2024-06-09] MEDS ORDERED: MAGNESIUM HYDROXIDE SUSP 30 ML UDC PO PRN (16:14)
[2024-06-09] MEDS ORDERED: POLYETHYLENE (MIRALAX) 17 GM PACK PO PRN (16:14)
[2024-06-09] MEDS ORDERED: PHARMACY GLYCEMIC MGMT CONSULT PRN (16:14)
[2024-06-09] MEDS ORDERED: ONDANSETRON INJ 2 MG/ML 2 ML VIAL IV PRN (16:14)
[2024-06-09] MEDS ORDERED: GLUCOSE 10 TAB/TUBE PO PRN (16:14)
[2024-06-09] MEDS ORDERED: ACETAMINOPHEN 325 MG TAB PO PRN (16:14)
[2024-06-09] MEDS ORDERED: ALBUT/IPRATROP 3MG/0.5MG NEB 3 ML VIAL INH PRN (16:14)
[2024-06-09] MEDS ORDERED: GLUCOSE 40% GEL 15 GM TUBE PO PRN (16:14)
[2024-06-09] MEDS: amLODIPine BESYLATE 5 MG TAB PO SCH (17:19)
[2024-06-09] MEDS: FUROSEMIDE 40 MG/4 ML VIAL IV SCH (17:19)
[2024-06-09] MEDS: METOPROLOL SUCC 50MG EXT REL TAB PO SCH (17:19)
[2024-06-09] MEDS: LANTUS PER UNIT CHARGE SQ SCH (17:20)
[2024-06-09] MEDS: INSULIN ASPART PER UNIT CHARGE SC SCH (17:20)
[2024-06-09] MEDS: 4.5GM X1 IV ONE (17:20)
--- NOTE | 2024-06-09 17:55 | Cardiology Consultation ---
Date of Consultation June 09, 2024 Assessment & Plan (1) Acute HFrEF (heart failure with reduced ejection fraction): (2) Cardiomyopathy: (3) Mitral regurgitation: (4) CAD (coronary artery disease): Plan 1. Acute on chronic left ventricular systolic heart failure. He seems of developed pulmonary edema early this morning. Unclear etiology. No evidence of arrhythmia. She is been compliant with her medical therapy although her diuretic dose was reduced recently. No increased salt intake by report. No evidence of an ischemic event. She seems to responded to initial attempts at diuresis. I think we will continue diuresis monitoring renal function electrolytes closely. She will probably need to be discharged on her increased dose of diuretic, 40 mg Lasix daily. 2. Ischemic cardiomyopathy: She was discharged on an aggressive medical regimen to include metoprolol succinate and Entresto. Empagliflozin was held due to recent urinary tract infection. Will monitor renal function may have an opportunity to add spironolactone. 3. Mitral regurgitation: Moderate. 4. Coronary artery disease: She has severe coronary artery disease including known occlusion of the LAD and 2 vein grafts. She not appear to be a candidate for revascularization in her last admission. No current symptoms to suggest angina or coronary insufficiency. Will continue aggressive secondary prevention with high-dose atorvastatin and clopidogrel. Isosorbide added at the time of d ischarge for persistent dyspnea despite normal left and right ventricular filling pressures. History of Present Illness Reason for Consultation: Shortness of breath Requesting Physician: Judy Attending Physician: Xu Kim MD History of Present Illness The patient is an 78-year-old woman with a history of coronary artery disease having previously undergone surgical revascularization who was recently admitted to [facility] with symptoms of decompensated heart failure. During that hospitalization she was noted to have reduced LV systolic function and did undergo cardiac catheterization. She was noted to have severe coronary disease including known occlusion of 2 vein grafts and proximal LAD stent. Medical therapy was recommended. She was started on an aggressive regimen for her reduced LV systolic function and underwent a diuresis. After returning home the patient was feeling well. She met with our heart failure specialist a few days ago and based on her clinical improvement her diuretic dose was reduced. He states that she was also feeling well until early this morning when she woke with a headache and back discomfort. Over time she also developed some significant breathing difficulty which eventually prompted her presentation to the emergency room. She was found to be somewhat hypoxic on presentation. She had evidence of pulmonary vascular congestion and underwent administration of Lasix. She was admitted for observation and additional treatment. At the time of my interview she was feeling much better. She states that she is on some mild dyspnea, but much improved from this morning. She has not been experiencing dizziness, lightheadedness orthostatic type symptoms. No orthopnea. She has not noticed any lower extremity edema. He has not been aware of any palpitations or rapid heartbeats. She has been compliant with her medical therapy. She is able to ambulate and do her routine activities. She can ascending stairs but takes her time. She likes to rest afterwards as she is somewhat fatigued but did not report any exertional chest pain or chest pain at rest. Allergies Allergy/AdvReac Type Severity Reaction Status Date / Time lisinopril Allergy Intermediate Cough Verified 06/06/24 12:58 isosorbide AdvReac Headache Verified 06/06/24 12:58 Home Medications Medication Instructions Recorded Confirmed Type anastrozole 1 mg tablet 1 mg PO QAM 11/08/18 06/09/24 History coenzyme Q10 200 mg capsule 200 mg PO QAM 01/06/20 06/09/24 History lancets 33 gauge (OneTouch Delica 02/09/20 06/06/24 History Plus Lancet) blood-glucose meter (OneTouch #1 ea 07/29/20 06/06/24 Rx Verio Meter) vit C 250 mg-vit E 90 mg-zinc 40 1 tab PO BID 09/26/21 06/09/24 History mg-copper 1 [id number] capsule (PreserVision AREDS-2) Spacer for Inhaler #1 ea 09/27/21 06/06/24 Rx blood-glucose meter (OneTouch #1 ea 03/24/22 06/06/24 Rx Verio Flex Meter) prevagen 1 tab PO DAILY 05/29/22 06/09/24 History insulin NPH isoph U-100 human 100 See Rx Instructions subcut 05/23/23 06/09/24 Rx unit/mL (3 mL) subcutaneous pen .COMPLEX 90 days #90 mL (Novolin N FlexPen) insulin regular human 100 unit/mL 30 unit (0.3 mL) subcut BID 90 05/23/23 06/09/24 Rx (3 mL) subcutaneous pen (Novolin R days #60 mL FlexPen) pen needle, diabetic 32 gauge x #400 ea 05/23/23 06/06/24 Rx 5/32" (BD Ultra-Fine Suzette Pen Needle) ipratropium 0.5 mg-albuterol 3 mg 3 ml inhalation Q4H PRN wheezing 07/10/23 06/09/24 Rx (2.5 mg base)/3 mL nebulization #180 mL soln nebulizer and compressor #1 ea 07/10/23 06/06/24 Rx OneTouch Verio test strips (blood #300 ea 07/30/23 06/06/24 Rx sugar diagnostic) budesonide 0.5 mg/2 mL suspension 0.5 mg (2 mL) inhalation BID #60 mL 07/30/23 06/09/24 Rx for nebulization alendronate 70 mg tablet 70 mg PO .COMPLEX #5 tabs 12/19/23 06/09/24 Rx cyanocobalamin (vitamin B-12) 1,000 mcg PO .3XWK 12/19/23 06/09/24 History 2,500 mcg tablet atorvastatin 80 mg tablet 80 mg PO QPM #90 tabs 01/08/24 06/09/24 Rx nitroglycerin 0.4 mg sublingual 0.4 mg sublingual Q5M PRN chest 01/08/24 06/09/24 Rx tablet (Nitrostat) pain #25 tabs albuterol sulfate 90 mcg/actuation 2 puff inhalation Q6H PRN Wheezing 01/17/24 06/09/24 Rx aerosol inhaler #18 grams metformin 1,000 mg tablet 1,000 mg PO BID #180 tabs 01/21/24 06/09/24 Rx fluoxetine 20 mg capsule (Prozac) 20 mg PO QAM #90 caps 04/24/24 06/09/24 Rx primidone 50 mg tablet (Mysoline) 100 mg (2 x 50 mg) PO BID 90 days 05/06/24 06/09/24 Rx #360 tabs amlodipine 5 mg tablet 5 mg PO QAM #90 tabs 05/07/24 06/09/24 Rx clopidogrel 75 mg tablet 75 mg PO DAILY #90 tabs 05/28/24 06/09/24 Rx choline [id number] 1 tab PO QAM 05/31/24 06/09/24 History metoprolol succinate 50 mg 100 mg (2 x 50 mg) PO QAM #30 tabs 06/04/24 06/09/24 Rx tablet,extended release 24 hr sacubitril 24 mg-valsartan 26 mg 1 tab PO BID #60 tabs 06/04/24 06/09/24 Rx tablet (Entresto) furosemide 40 mg tablet 20 mg PO UD 06/09/24 06/09/24 History isosorbide mononitrate 30 mg 30 mg PO UD 06/09/24 06/09/24 History tablet,extended release 24 hr Patient History Medical History Pulmonary edema Arthritis Hx of breast cancer Anxiety Neuropathy Myocardial Infarction 2009 History of COVID-19 01/2021>MILD SYMPTOMS *RESOLVED Thrombocytopenia DM type 2 (diabetes mellitus, type 2) IDDM CAD (coronary artery disease) Tremor L ARM ON OCC-NO DIAGNOSIS Hypertension Hyperlipidemia Unstable angina (03/16/14) Surgical History H/O bilateral mastectomy SURGERY ONLY>(NO LIMB RESTRICTION) NO RECONSTRUCTION H/O lumpectomy LEFT X 2 History of tooth extraction History of surgery Right Axillary Dissection, Bilateral Breast Scar Revision - 12/2017 [facility] History of colonoscopy History of trigger finger right thumb release History of open reduction and internal fixation (ORIF) procedure RT ANKLE History of cataract surgery RT/LEFT History of cardiac cath STENTS 06/2010 [place] (DIAG AND CX), 1 STENT 04/2011, AND 1 STENT 2013 [place] History of coronary artery bypass graft 3 VESSELS-2009 AT [facility] *FOLLOWS WITH DR. HAMMER Family History Sister Breast cancer Father Alcoholism Mother Heart disease Uncle Heart disease Daughter Family history of diabetes mellitus Other No family history of adverse response to anesthesia Denies family history of Ovarian cancer Prostate cancer Myocardial infarction Colorectal cancer Social History Smoking Status: Never smoker Tobacco Type: Cigarettes Age Started Using Tobacco: 13; Age Quit Using Tobacco: 43; packs per day: 0.75; Second Hand Exposure: No; Do You Dip or Chew Tobacco: No; Tobacco Cessation Education Requested by Patient: No Hx Alcohol Use: No Hx Substance Use: No Preferred Language: Syriac Communication Ability: Effective Visual Impairment: No Limitations Hearing Ability: Normal Geospatial Information Technologist Required: Voice Beliefs That Will Affect Care: None marital status: Current Living Situation: Spouse Current Living Situation Comment: single story house current occupational status: retired 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 Mood affect appear normal. She answered all questions appropriately. HEENT: Sclerae are anicteric. Pupils are equal and reactive to light and accommodation. Extraocular movements were intact. Neuro: Cranial nerves intact Lungs: Some crackles at the bases bilaterally. No expiratory wheezing. Normal respiratory effort. Cardiac: The rhythm was regular. S1 and S2 were normal. Crescendo systolic murmur. The PMI was not markedly displaced on palpation. Extremities: Patient has bilateral radial pulses that are equal in intensity. There is no evidence cyanosis or clubbing. There was no evidence of significant peripheral edema bilaterally. Skin: There are no rashes noted on examination today. Results & Data Vital Signs (Past 12 Hours) Vital Signs Temp Pulse Pulse Resp BP BP Pulse Ox 06/09/24 16:25 36.7 C 86 16 152/75 H 97 06/09/24 16:00 06/09/24 16:00 89 06/09/24 15:26 06/09/24 15:14 78 22 100 06/09/24 15:00 72 24 100 06/09/24 14:00 81 22 126/69 100 06/09/24 13:47 75 06/09/24 13:30 76 28 H 160/74 H 100 06/09/24 12:30 81 26 H 140/101 H 100 06/09/24 12:24 85 27 H 149/78 H 100 06/09/24 11:00 98 H 36 H 197/130 H 100 06/09/24 10:58 98 H 34 H 100 06/09/24 10:33 90 30 H 96 06/09/24 10:30 163/96 H 06/09/24 10:03 85 28 H 98 06/09/24 10:03 36.5 C 85 28 H 158/101 H 98 06/09/24 10:03 88 L 06/09/24 10:03 36.5 C 85 28 H 158/101 H 88 L 06/09/24 10:03 06/09/24 10:00 83 28 H 158/101 H 100 O2 Del Method O2 Flow Rate FiO2 06/09/24 16:25 Nasal Cannula 2 06/09/24 16:00 Nasal Cannula 2 06/09/24 16:00 06/09/24 15:26 BiPAP 06/09/24 15:14 06/09/24 15:00 BiPAP 06/09/24 14:00 BiPAP 06/09/24 13:47 06/09/24 13:30 BiPAP 06/09/24 12:30 BiPAP 06/09/24 12:24 BiPAP 06/09/24 11:00 BiPAP 06/09/24 10:58 35 06/09/24 10:33 Nasal Cannula 2 06/09/24 10:30 06/09/24 10:03 Nasal Cannula 2 06/09/24 10:03 Nasal Cannula 2 06/09/24 10:03 Room Air 0 06/09/24 10:03 Room Air 06/09/24 10:03 Nasal Cannula 2 06/09/24 10:00 Nasal Cannula 2 Laboratory Results Abnormal Lab Results 06/09/24 06/09/24 06/09/24 09:50 09:58 11:15 WBC 12.20 H RBC 3.21 L Hgb 9.4 L POC Hgb Hct 29.3 L POC Hct MCV 91.3 MCH 29.3 MCHC 32.1 RDW Std Deviation 50.6 H RDW Coeff of Sarina 15.5 H Plt Count 293 MPV 10.3 Immature Gran % (Auto) 0.3 Neut % (Auto) 85.5 Lymph % (Auto) 9.6 [place] % (Auto) 3.9 Eos % (Auto) 0.3 Baso % (Auto) 0.4 Neut # (Auto) 10.43 H Lymph # (Auto) 1.17 L [place] # (Auto) 0.47 Eos # (Auto) 0.04 Baso # (Auto) 0.05 Immature Gran # (Auto) 0.04 PT 11.3 INR 1.0 POC pH POC pCO2 POC pO2 POC HCO3 POC Total CO2 POC Base Excess POC ABG O2 Sat VBG pH 7.25 L VBG pCO2 58 H VBG pO2 64 VBG HCO3 25 VBG O2 Saturation 90.8 VBG Base Excess -2.5 POC Sodium Sodium 134 L POC Potassium Potassium 5.3 H Chloride 99 Carbon Dioxide 28 Anion Gap 7 BUN 25 H Creatinine 1.25 H Est Cr Clr Drug Dosing 34.1 eGFR 43.57 BUN/Creatinine Ratio 20.0 Glucose 295 H POC Glucose Calcium 9.3 Total Bilirubin 0.4 AST 23 ALT 24 Alkaline Phosphatase 70 Troponin I High Sens 35.5 H B-Natriuretic Peptide 2857 H Total Protein 7.2 Albumin 3.9 Globulin 3.3 Albumin/Globulin Ratio 1.2 Adenovirus (PCR) Not Detected B. pertussis DNA (PCR) Not Detected B.parapertussis DNA PCR Not Detected C. pneumoniae DNA (PCR) Not Detected Coronavirus OC43 (PCR) Not Detected Coronavirus HKU1 (PCR) Not Detected Coronavirus 229E (PCR) Not Detected SARS-CoV-2 (PCR) Not Detected Coronavirus NL63 (PCR) Not Detected Human Metapneumovir PCR Not Detected Influenza Type A (PCR) Not Detected Influenza Type B (PCR) Not Detected M. pneumoniae (PCR) Not Detected Parainfluenza 1 (PCR) Not Detected Parainfluenza 2 (PCR) Not Detected Parainfluenza 3 (PCR) Not Detected Parainfluenza 4 (PCR) Not Detected RSV (PCR) Not Detected Entero/Rhino (PCR) Not Detected 06/09/24 06/09/24 06/09/24 11:47 12:37 16:10 WBC RBC Hgb POC Hgb 10.5 L Hct POC Hct 31 L MCV MCH MCHC RDW Std Deviation RDW Coeff of Sarina Plt Count MPV Immature Gran % (Auto) Neut % (Auto) Lymph % (Auto) [place] % (Auto) Eos % (Auto) Baso % (Auto) Neut # (Auto) Lymph # (Auto) [place] # (Auto) Eos # (Auto) Baso # (Auto) Immature Gran # (Auto) PT INR POC pH 7.30 L POC pCO2 52 H POC pO2 93 POC HCO3 26 H POC Total CO2 27 POC Base Excess -1.0 POC ABG O2 Sat 96.0 H VBG pH VBG pCO2 VBG pO2 VBG HCO3 VBG O2 Saturation VBG Base Excess POC Sodium 133 L Sodium POC Potassium 5.3 H Potassium Chloride Carbon Dioxide Anion Gap BUN Creatinine Est Cr Clr Drug Dosing eGFR BUN/Creatinine Ratio Glucose POC Glucose 298 H Calcium Total Bilirubin AST ALT Alkaline Phosphatase Troponin I High Sens 34.1 H B-Natriuretic Peptide Total Protein Albumin Globulin Albumin/Globulin Ratio Adenovirus (PCR) B. pertussis DNA (PCR) B.parapertussis DNA PCR C. pneumoniae DNA (PCR) Coronavirus OC43 (PCR) Coronavirus HKU1 (PCR) Coronavirus 229E (PCR) SARS-CoV-2 (PCR) Coronavirus NL63 (PCR) Human Metapneumovir PCR Influenza Type A (PCR) Influenza Type B (PCR) M. pneumoniae (PCR) Parainfluenza 1 (PCR) Parainfluenza 2 (PCR) Parainfluenza 3 (PCR) Parainfluenza 4 (PCR) RSV (PCR) Entero/Rhino (PCR) Diagnostic Findings Echocardiogram 06/09/2024: Moderately reduced LV systolic function with ejection fraction of 30 to 35%. Regional wall motion really including akinesis of the anterior and lateral barton. Echocardiogram 06/01/2024: Ejection fraction 35 to 40%. Regional wall motion abnormality involving the mid inferior wall and anterior wall. Moderate LVH. Moderate mitral regurgitation. Aortic valve sclerosis without stenosis. Cardiac catheterization 06/03/2024: 1. Severe multivessel CAD including LAD with occluded proximal LAD stent, and otherwise severe CAD of the circumflex, and smaller caliber OM vessels. 2. Mild to moderate nonobstructive CAD involving RCA. 3. Right to left collaterals. 4. Patent MCCORMACK to LAD. 5. Previously documented occluded SVG vein grafts x 2. 6. Nonelevated left and right sided filling pressures. 7. Normal pulmonary artery pressure. 8. Reduced cardiac output. 9. No significant aortic stenosis. Chest CTA did not demonstrate pulmonary embolus. Chest x-ray demonstrated mild pulmonary vascular congestion. PG Care Time/CCT Total # of Minutes Spent Total Time Spent with Patient: Total time spent is greater than 50% in coordination of care (as documented) at patient's floor/unit and/or counseling patient: Coding Level of Care Code 09525 INT INP/OBS CARE MIN Diagnoses Acute HFrEF (heart failure with reduced ejection fraction) I50.21 Cardiomyopathy I42.9 Mitral regurgitation I34.0 CAD (coronary artery disease) I25.10
[2024-06-09] MEDS: ATORVASTATIN 40 MG TAB PO SCH (20:24)
[2024-06-09] MEDS: HEPARIN SOD 5,000 UNIT/0.5 ML VIAL SQ SCH (20:25)
[2024-06-09] MEDS: PRIMIDONE 50 MG TAB PO SCH (20:26)
[2024-06-09] MEDS: VALSARTAN/SACUBITRIL 26/24MG TAB PO SCH (20:27)
[2024-06-09] MEDS: PIPERACILLIN/TAZOBACTAM 4.5 GM/100 ML BAG IV SCH (22:02)
[2024-06-09] MEDS ORDERED: ZOLPIDEM TARTRATE 5 MG TAB PO PRN (23:56)
[2024-06-10] MEDS: MELATONIN 3 MG TAB PO PRN (00:21)
[2024-06-10 00:51] LABS: Appearance Urine Clear (Clear); Bacteria Urine Automated None Seen (None Seen); Bilirubin Urine Negative (Negative); Blood Urine Negative (Negative); Cast Urine Automated 0-2 /lpf (0-2); Color Urine Yellow; Epithelial Cell Urine Auto 0-2 /hpf (0-2); Glucose Urine UA Negative (Negative); Ketones Urine Negative (Negative); Leukocyte Esterase Urine 3+ (Negative); Nitrite Urine Negative (Negative); Protein Urine Negative (Negative); RBC Urine Automated 0-2 /hpf (0-2); Specific Gravity Urine 1.013 (1.000-1.030); Urobilinogen Urine Negative (Negative); WBC Urine Automated >50 /hpf (0-5)
[2024-06-10] MEDS: ALENDRONATE SODIUM 10 MG TAB PO SCH (06:18)
[2024-06-10 06:34] LABS: Hematocrit (blood only) 28.4 % (37.0-47.0); Hemoglobin 9.3 g/dl (12.0-16.0); Mean Corpuscular Hemoglobin 29.1 pg (25.0-34.0); Mean Corpuscular Hgb Conc 32.7 g/dL (32.0-36.0); Mean Corpuscular Volume 88.8 fL (80.0-100.0); Mean Platelet Volume 10.1 fL (9.4-12.4); Platelet Count 240 K/uL (130-400); RDW Coefficient of Variation 15.4 % (11.5-14.5); White Blood Count 9.33 K/ul (4.8-10.8)
[2024-06-10] MEDS: ANASTROZOLE 1 MG TAB PO SCH (08:52)
[2024-06-10] MEDS: FLUoxetine HCL 20 MG CAP PO SCH (08:53)
[2024-06-10] MEDS: CLOPIDOGREL BISULFATE 75 MG TAB PO SCH (08:53)
[2024-06-10] MEDS: LANTUS PER UNIT CHARGE SQ SCH (09:04)
[2024-06-10 10:12] LABS: BUN Creatinine Ratio 16.6 (10-20); Calcium 9.3 mg/dl (8.6-10.3); Creatinine Clr Calc Pharmacy 28.8 ml/min; Magnesium 1.6 mg/dl (1.7-2.4); Potassium 4.9 mmol/L (3.5-5.1)
[2024-06-10] MEDS: MAGNESIUM SULFATE / D5W 1 GM/100 ML BAG IV SCH (11:09)
--- NOTE | 2024-06-10 13:22 | Hospitalist Progress Note ---
Date of Service June 10, 2024 Assessment & Plan (1) Acute HFrEF (heart failure with reduced ejection fraction): (2) JOBY (acute kidney injury): (3) Uncontrolled type 2 diabetes mellitus with hyperglycemia, with long-term current use of insulin: (4) CAD (coronary artery disease): (5) Hypertension: (6) Dyslipidemia: (7) Breast cancer: Plan Ms. Xie is an 78yo female with h/o CAD S/P CABGx3 vessels/Ischemic Cardiomyopathy/HFrEF (30-35%), HTN, T2DM (A1c 10.2), DCIS S/P Mastectomy, CKD stage 3a, Chronic Anemia, Tremor/Gait Disorder who presented with acute hypoxic resp failure 2nd to pulmonary edema / acute on chronic systolic CHF. #Acute Hypoxic Respiratory Failure - * resolved * initially required BIPAP in the ER and for a period of time after admission due to increased work of breathing * she was diuresed and BIPAP was able to be stopped; at this point she is off all supplemental O2 * no evidence of any infectious process -- d/c zosyn #Acute on chronic HFrEF/ischemic cardiomyopathy - * recent echo with EF 35-40%; today's echo EF 30-35% * s/p lasix in ER yesterday 40mg x 1; then repeat 40mg IV x 1 this am * at this point she appears euvolemic on exam thus stop IV lasix * moving forward likely to need 40mg of PO lasix daily (recent attempts to make her lasix prn for weight gain/edema not successful) * cont Entresto - watch Creatinine & K level carefully; cont meto succ 100mg daily * can't rule out ongoing ischemia in the setting of advanced CAD contributing to decompensation #CAD S/P CABG x 3/HTN - * no evidence of ACS during this stay * cont meto succ, Entresto, statin, plavix, imdur * BPs were low-normal this am - held amlodipine; at discharge may need to reduce the dose to 2.5mg or eliminate all together * she is s/p left heart cath on 06/03/24 with advanced CAD but nothing that was amenable to stenting; medical management advised at that time #JOBY on CKD (Baseline Cr 1.0-1.1) - * Mildly elevated Cr at 1.2 yesterday; 1.45 today * BMP in am * diuresis, Entresto, etc likely all contributing to mild JOBY #Hyperkalemia - * Mildly elevated at 5.3 yesterday; s/p diuresis; K now 4.9 * repeat BMP am * if hyperkalemia is persistent we will be forced to hold her Entresto #T2DM, Uncontrolled - A1c 10.2 - * pharmacy glycemic team is managing * cont basal-bolus insulins * home regimen on hold for now #Chronic Anemia: Baseline HGB 10-11 * hemoglobin mid 9's today without signs/symptoms of GI bleeding, etc #Tremor/Gait Disorder: * Primidone 100 mg BID #mild hypomagnesemia - 2nd to diuretics * mag sulfate 2gm IV x 1 * repeat mag level am DVT PROPHYLAXIS - Heparin SC BID family updated at bedside today ( and daughter on 2 visits) possible d/c home tomorrow Admission and Anticipated Discharge Date Admission Date: June 09, 2024 Subjective patient sitting in the chair eating her meal she feels much better today all supplemental o2 has already been weaned off denies cough denies any dyspnea or ESPINO no chest pain tele overnight wnl we discussed her presentation, her need for daily lasix at home post-d/c, etc updated at bedside Review of Systems Review of Systems: CV - no orthopnea, PND, edema gen - no fevers or chills; good appetite pulm - no cough or congestion GI - no nausea/emesis Physical Exam Physical Exam: gen - NAD, looks very good, pleasant neck - no JVD sitting upright mouth - MMM heart - RRR, s2 s2, 2/6 systolic murmur LSB lungs - minimally decreased BS bases; otherwise CTA b/l; no rales abd - soft NT ND BS+ ext - no edema, pulses 2+ b/l Results & Data Results & Data Vital Signs (Past 12 Hours) Vital Signs Temp Pulse Pulse Resp BP Pulse Ox O2 Del Method 06/10/24 11:05 36.8 C 66 19 117/66 99 Room Air 06/10/24 08:20 Room Air 06/10/24 08:06 36.9 C 74 24 104/63 97 Room Air 06/10/24 07:16 64 06/10/24 02:11 36.7 C 65 18 158/61 H 93 Room Air Laboratory Results Laboratory Results - last 24 hr 06/10/24 06/10/2425 06:02 07:14 11:30 WBC 9.33 RBC 3.20 L Hgb 9.3 L Hct 28.4 L MCV 88.8 MCH 29.1 MCHC 32.7 RDW Std Deviation 49.0 H RDW Coeff of Sarina 15.4 H Plt Count 240 MPV 10.1 Sodium 132 L Potassium 4.9 Chloride 97 L Carbon Dioxide 30 Anion Gap 5 BUN 24 H Creatinine 1.45 H Est Cr Clr Drug Dosing 28.8 eGFR 36.46 BUN/Creatinine Ratio 16.6 Glucose 285 H POC Glucose 242 H 173 H Calcium 9.3 Magnesium 1.6 L B-Natriuretic Peptide 2140 H 06/10/24 16:41 WBC RBC Hgb Hct MCV MCH MCHC RDW Std Deviation RDW Coeff of Sarina Plt Count MPV Sodium Potassium Chloride Carbon Dioxide Anion Gap BUN Creatinine Est Cr Clr Drug Dosing eGFR BUN/Creatinine Ratio Glucose POC Glucose 115 H Calcium Magnesium B-Natriuretic Peptide Diagnostic Findings limited echo - EF 30-35%; anterolateral hypokinesis PG Care Time/CCT Total # of Minutes Spent Total Time Spent with Patient: Total time spent is greater than 50% in coordination of care (as documented) at patient's floor/unit and/or counseling patient: Coding Level of Care Code 59947 SUB INP/OBS CARE 2/35MIN Diagnoses Acute HFrEF (heart failure with reduced ejection fraction) I50.21 JOBY (acute kidney injury) N17.9 Uncontrolled type 2 diabetes mellitus with hyperglycemia, with long-term current use of insulin E11.65; Z79.4 CAD (coronary artery disease) I25.10 Hypertension I10 Dyslipidemia E78.5 Breast cancer C50.919
--- NOTE | 2024-06-10 13:34 | Cardiology Progress Note ---
Date of Service June 10, 2024 Assessment & Plan (1) Acute HFrEF (heart failure with reduced ejection fraction): (2) Cardiomyopathy: (3) Mitral regurgitation: (4) CAD (coronary artery disease): Plan 1. Acute on chronic left ventricular systolic heart failure. She appears to have affected a good diuresis with resolution of her symptoms. Renal function has remained stable. Mild hyponatremia. This appears chronic. I think would be reasonable to return her to 40 mg of Lasix daily. Despite a history of UTIs, I think she would benefit from an SGLT2 inhibitor especially given her readmission. I think starting Jardiance 10 mg daily would be a good option. Will continue her Entresto and metoprolol. 2. Ischemic cardiomyopathy: She was discharged on an aggressive medical regimen to include metoprolol succinate and Entresto. Will start Entresto. 3. Mitral regurgitation: Moderate. 4. Coronary artery disease: She has severe coronary artery disease including known occlusion of the LAD and 2 vein grafts. She not appear to be a candidate for revascularization in her last admission. No current symptoms to suggest angina or coronary insufficiency. Will continue aggressive secondary prevention with high-dose atorvastatin and clopidogrel. Isosorbide added at the time of discharge for persistent dyspnea despite normal left and right ventricular filling pressures. Admission and Anticipated Discharge Date Admission Date: June 09, 2024 Subjective This morning patient was feeling "great". She did have some difficulty sleeping last night but this did not appear to be related to orthopnea. This morning she states that her breathing is not quite returned to normal but certainly improved dramatically from admission. She has been ambulatory from the bed to the chair. No dizziness or lightheadedness. Review of Systems Review of Systems: Per HPI Physical Exam Physical Exam: She is alert and oriented x3. Mood affect appear normal. She answered all questions appropriately. HEENT: Sclerae are anicteric. Pupils are equal and reactive to light and accommodation. Extraocular movements were intact. Neuro: Cranial nerves intact Lungs: Clear bilaterally. No expiratory wheezing. Normal respiratory effort. Cardiac: The rhythm was regular. S1 and S2 were normal. Crescendo systolic murmur. The PMI was not markedly displaced on palpation. Extremities: Patient has bilateral radial pulses that are equal in intensity. There is no evidence cyanosis or clubbing. There was no evidence of significant peripheral edema bilaterally. Skin: There are no rashes noted on examination today. Results & Data Vital Signs (Past 12 Hours) Vital Signs Temp Pulse Pulse Resp BP Pulse Ox O2 Del Method 06/10/24 11:05 36.8 C 66 19 117/66 99 Room Air 06/10/24 08:20 Room Air 06/10/24 08:06 36.9 C 74 24 104/63 97 Room Air 06/10/24 07:16 64 06/10/24 02:11 36.7 C 65 18 158/61 H 93 Room Air Laboratory Results Abnormal Lab Results 06/09/24 06/09/24 06/10/24 16:10 20:16 00:24 WBC RBC Hgb Hct MCV MCH MCHC RDW Std Deviation RDW Coeff of Sarina Plt Count MPV Sodium Potassium Chloride Carbon Dioxide Anion Gap BUN Creatinine Est Cr Clr Drug Dosing eGFR BUN/Creatinine Ratio Glucose POC Glucose 298 H 161 H Calcium Magnesium B-Natriuretic Peptide Urine Color Yellow Urine Appearance Clear Urine pH 7.0 Ur Specific [place] 1.013 Urine Protein Negative Urine Glucose (UA) Negative Urine Ketones Negative Urine Blood Negative Urine Nitrite Negative Urine Bilirubin Negative Urine Urobilinogen Negative Ur Leukocyte Esterase 3+ H Urine WBC (Auto) >50 H Urine RBC (Auto) 0-2 U Hyaline Cast (Auto) 0-2 U Epithel Cells (Auto) 0-2 Urine Bacteria (Auto) None Seen 06/10/24 06/10/24 06/10/24 06:02 07:14 11:30 WBC 9.33 RBC 3.20 L Hgb 9.3 L Hct 28.4 L MCV 88.8 MCH 29.1 MCHC 32.7 RDW Std Deviation 49.0 H RDW Coeff of Sarina 15.4 H Plt Count 240 MPV 10.1 Sodium 132 L Potassium 4.9 Chloride 97 L Carbon Dioxide 30 Anion Gap 5 BUN 24 H Creatinine 1.45 H Est Cr Clr Drug Dosing 28.8 eGFR 36.46 BUN/Creatinine Ratio 16.6 Glucose 285 H POC Glucose 242 H 173 H Calcium 9.3 Magnesium 1.6 L B-Natriuretic Peptide 2140 H Urine Color Urine Appearance Urine pH Ur Specific [place] Urine Protein Urine Glucose (UA) Urine Ketones Urine Blood Urine Nitrite Urine Bilirubin Urine Urobilinogen Ur Leukocyte Esterase Urine WBC (Auto) Urine RBC (Auto) U Hyaline Cast (Auto) U Epithel Cells (Auto) Urine Bacteria (Auto) PG Care Time/CCT Total # of Minutes Spent Total Time Spent with Patient: Total time spent is greater than 50% in coordination of care (as documented) at patient's floor/unit and/or counseling patient: Coding Level of Care Code 44380 SUB INP/OBS CARE 2/35MIN Diagnoses Acute HFrEF (heart failure with reduced ejection fraction) I50.21 Cardiomyopathy I42.9 Mitral regurgitation I34.0 CAD (coronary artery disease) I25.10
--- NOTE | 2024-06-10 14:09 | Pharmacy Report ---
Pharmacy Glycemic Short Note 2 - Date of Service June 10, 2024 - Glycemic Short BSG Results (Last 24 hours): 06/09/24 06/09/24 06/10/24 16:10 20:16 06:02 Glucose 285 H POC Glucose 298 H 161 H 06/10/24 06/10/24 07:14 11:30 Glucose POC Glucose 242 H 173 H OUTPATIENT ANTIDIABETIC REGIMEN: * Metformin 1g BID * NPH 48 units qam, 44 units qpm * A1c: 10.2% ASSESSMENT: * Patient presenting with SOB and acute hypoxic respiratory failure requiring BIPAP. * Patient received 30 units lantus and 20 units novolog yesterday * BSGs yesterday were 295-298-161 mg/dL. BSGs today were 242-173 mg/dL. * Lantus dosing adjusted this morning to include increased dosing per scale based on BSG * Patient is tolerating a diet. PLAN FOR INPATIENT GLYCEMIC CONTROL: * Hold outpatient oral diabetes medications * Basal insulin * Lantus 30-40 units SQ BID based on BSG * Bolus insulin * NovoLog per scale ACHS or Q6hrs while NPO * Goal Range: Low 120 mg/dL - High 150 mg/dL * Correction Factor: 15 mg/dL/unit * Nutritional / Prandial insulin per carb ratio of 1 unit per 5 grams CHO consumed
[2024-06-11 06:39] LABS: BUN Creatinine Ratio 15.9 (10-20); Calcium 9.1 mg/dl (8.6-10.3); Creatinine Clr Calc Pharmacy 30.5 ml/min; Potassium 4.5 mmol/L (3.5-5.1)
[2024-06-11 07:04] VITALS: BP 133/67; RESP 18; TEMP 98.2; O2SAT 96
--- NOTE | 2024-06-11 09:25 | Cardiology Progress Note ---
Date of Service June 11, 2024 Assessment & Plan (1) Acute HFrEF (heart failure with reduced ejection fraction): (2) Cardiomyopathy: (3) Mitral regurgitation: (4) CAD (coronary artery disease): Plan 1. Acute on chronic left ventricular systolic heart failure. Unclear precip itant. She appears to have affected a good diuresis with resolution of her symptoms. Renal function has remained stable. Mild hyponatremia. She seems stable for discharge. I think we can return her to her daily dose of oral Lasix, 40 mg a day. I will start her on empagliflozin as well. I will ask him to arrange follow-up within the next week in our clinic. 2. Ischemic cardiomyopathy: She was discharged on an aggressive medical regimen to include metoprolol succinate and Entresto. Will start empagliflozin. 3. Mitral regurgitation: Moderate. 4. Coronary artery disease: She has severe coronary artery disease including known occlusion of the LAD and 2 vein grafts. She not appear to be a candidate for revascularization in her last admission. No current symptoms to suggest angina or coronary insufficiency. Will continue aggressive secondary prevention with high-dose atorvastatin and clopidogrel. Isosorbide added at the time of discharge for persistent dyspnea despite normal left and right ventricular filling pressures. Admission and Anticipated Discharge Date Admission Date: June 09, 2024 Subjective This morning patient claims to be feeling well. She states her breathing is good. She is been ambulatory around her room without dizziness or lightheadedness. Review of Systems Review of Systems: Per HPI Physical Exam Physical Exam: She is alert and oriented x3. Mood affect appear normal. She answered all questions appropriately. HEENT: Sclerae are anicteric. Pupils are equal and reactive to light and accommodation. Extraocular movements were intact. Neuro: Cranial nerves intact Lungs: Clear bilaterally. No expiratory wheezing. Normal respiratory effort. Cardiac: The rhythm was regular. S1 and S2 were normal. Crescendo systolic murmur. The PMI was not markedly displaced on palpation. Extremities: Patient has bilateral radial pulses that are equal in intensity. There is no evidence cyanosis or clubbing. There was no evidence of significant peripheral edema bilaterally. Skin: There are no rashes noted on examination today. Results & Data Vital Signs (Past 12 Hours) Vital Signs Temp Pulse Pulse Resp BP Pulse Ox O2 Del Method 06/11/24 07:04 36.8 C 67 18 133/67 96 Room Air 06/11/24 02:34 36.7 C 73 20 115/59 L 95 Room Air 06/10/24 23:00 36.7 C 58 L 18 107/53 L 94 Room Air 06/10/24 22:00 56 L Laboratory Results Abnormal Lab Results 06/10/24 06/10/24 06/10/24 06:02 11:30 16:41 Sodium 132 L Potassium 4.9 Chloride 97 L Carbon Dioxide 30 Anion Gap 5 BUN 24 H Creatinine 1.45 H Est Cr Clr Drug Dosing 28.8 eGFR 36.46 BUN/Creatinine Ratio 16.6 Glucose 285 H POC Glucose 173 H 115 H Calcium 9.3 Magnesium 1.6 L B-Natriuretic Peptide 2140 H 06/10/24 06/11/24 06/11/24 20:14 05:52 07:06 Sodium 133 L Potassium 4.5 Chloride 98 Carbon Dioxide 29 Anion Gap 6 BUN 22 Creatinine 1.38 H Est Cr Clr Drug Dosing 30.5 eGFR 38.69 BUN/Creatinine Ratio 15.9 Glucose 117 H POC Glucose 84 137 H Calcium 9.1 Magnesium 2.0 B-Natriuretic Peptide PG Care Time/CCT Total # of Minutes Spent Total Time Spent with Patient: Total time spent is greater than 50% in coordination of care (as documented) at patient's floor/unit and/or counseling patient: Coding Level of Care Code 11565 SUB INP/OBS CARE 235MIN Diagnoses Acute HFrEF (heart failure with reduced ejection fraction) I50.21 Cardiomyopathy I42.9 Mitral regurgitation I34.0 CAD (coronary artery disease) I25.10
[2024-06-11] MEDS: FUROSEMIDE 40 MG TAB PO SCH (10:29)
[2024-06-11] MEDS: EMPAGLIFLOZIN 10 MG TAB PO SCH (10:29)
--- NOTE | 2024-06-11 10:38 | Discharge Summary ---
Discharge Summary Date of Service June 11, 2024 Principal Dx & Hospital Course #1 = Principal Diagnosis (1) Acute HFrEF (heart failure with reduced ejection fraction): (2) JOBY (acute kidney injury): (3) Uncontrolled type 2 diabetes mellitus with hyperglycemia, with long-term current use of insulin: (4) CAD (coronary artery disease): (5) Hypertension: (6) Dyslipidemia: (7) Breast cancer: Plan William Xie is an 78 year old female with known ischemic cardiomyopathy admitted to [facility] from June 09 - 2024 due to shortness of breath. She was diagnosed with acute on chronic heart failure with reduced ejection fraction. Repeat echo with LVEF 30 to 35%. She was treated with intravenous diuretics with Lasix (initially 40mg IV BID). She was reviewed by cardiology and suspected to be euvolemic on discharge. She will be discharged on and increased dose of Lasix at 40mg PO daily and Jardiance 10 mg p.o. daily. Notes For Next Care Provider Follow-up cost of Jardiance as may be unaffordable - consider switch to alternative SGLT2 inhibitor, monitor for hypoglycemia with her concurrent insulin Entresto appears to be unaffordable on her current insurance therefore if unable to obtain samples this may need to be switched Patient appears to be confused about her alendronate dosing (thinks she takes 10mg PO daily). Advised to make sure this is 70mg PO once weekly. I suspect she is taking it correctly as she appears to be picking it up correctly from the pharmacy. Monitor for increasing weight or worsening shortness of breath Patient will have follow-up labs previously arranged by the heart failure clinic on Sunday Medication Changes From Visit Lasix 40 mg p.o. daily rather than PRN to help with heart failure Jardiance started also to help with heart failure Admission HPI Per Admitting Provider Ms. Xie is an 78 y/o female with PMHx of CAD S/P CABGx3/Ischemic Cardiomyopathy/HFrEF (30-45%), HTN, HLD, T2DM (A1c 10.2), DCIS S/P Mastectomy, CKD, Chronic Anemia, Tremor/Gait Disorder who presents to the ED c/o SOB since this AM. Pt awoke around midnight with increased SOB compared to her baseline ESPINO. She also noted headache and back pain that has since resolved. She was just evaluated in CHF clinic and was able to go to PRN Lasix due to euvolemic status. Patient and daughter do not report any changes in diet. She was noted to be hypoxic at 88% on RA in ED and initially placed on nasal cannula. While in the ED she became more tachypneic and was placed on BIPAP. Pt reports improvement with BIPAP but remained tachypneic and tachycardic. She is still able to answer questions appropriately and baseline mentation. She was recently admitted on 05/31 with similar presentation requiring BIPAP and diuresis. During previous admission, she underwent cardiac cath which showed prior LAD stent is now occlud ed and severe CAD involving the circumflex system. Medical therapy was recommended at that time. Currently improving with BIPAP and diuresis. Discharge Exam Constitutional WD/WN, vitals as above Respiratory normal respiratory effort, lungs clear to auscultation Cardiovascular RRR, no murmur, no edema Discharge Plan Discharge Items Patient Disposition: Home - Self-Care Reason For Visit: ACUTE CHF EXACERBATION Discharge Diagnosis: Acute on chronic heart failure exacerbation Activity: Resume your previous activity Non-emergency contact: Primary Care Provider Call non-emergency contact if: you have any medication questions Follow-up/Referrals: Kyrie Richardson MD [Physician] - 06/23/24 11:30 am (Follow up heart failure scheduled with Radha Fermin on 06/23/24 at 11:30) Bashir Melgar DO [Primary Care Provider] - 06/20/24 1:00 pm (hospital follow up scheduled on 06/20/24 at 1:[address] Melgar) Diet: Heart Healthy and Low Sodium (2gm) Addtl Attending Provider Instructions: You were admitted to [facility] from June 09 - 2024 due to shortness of breath. You were diagnosed with acute on chronic heart failure with reduced ejection fraction. You were treated with intravenous diuresis with Lasix. You were seen by cardiology and now appear back to your dry weight. You will be discharged on and increased dose of Lasix at 40mg PO daily. Your field reviewer also wishes to start on a diabetes medication called Jardiance which also helps with heart failure. Be aware Jardiance in addition to your insulin can cause low blood glucose levels but given your A1C 10.2 this is not anticipated to be an issue - please call your material expeditor for re commendations on reducing insulin if low glucose levels are an issue. Jardiance also increases you risk of urine tract infection - please contact your PCP for advice if you start having painful urination. Please follow up with your field reviewer and the heart failure clinic for ongoing adjustments to your diuretics. Pending Studies at Discharge: No Stand-Alone Forms: My [facility] [employer], Smoking Cessation Medications and DC Order Prescriptions: New Jardiance 10 mg Tablet 10 mg PO DAILY Qty: 30 0RF Continued (DME) blood-glucose meter [OneTouch Verio Meter] [facility] See Rx Instructions .ROUTE .MEDSUPPLY Qty: 1 0RF Rx Instructions: Test blood sugar two times daily (DME) OneTouch Verio test strips Strip See Rx Instructions .ROUTE .MEDSUPPLY Qty: 300 3RF Dose Instruction: As directed Rx Instructions: test blood sugar three times a day albuterol sulfate 90 mcg/actuation HFA aerosol inhaler 2 puff INHALATION Q6H PRN (Reason: Wheezing) Qty: 18 3RF metformin 1,000 mg tablet 1,000 mg PO BID Qty: 180 3RF fluoxetine [Prozac] 20 mg capsule 20 mg PO QAM Qty: 90 3RF amlodipine 5 mg tablet 5 mg PO QAM Qty: 90 3RF Patient Comments: TAKES 7.5MG QAM clopidogrel 75 mg tablet 75 mg PO DAILY Qty: 90 3RF prevagen 1 tab PO DAILY (DME) blood-glucose meter [OneTouch Verio Flex meter] [facility] See Rx Instructions .ROUTE .MEDSUPPLY Qty: 1 0RF Rx Instructions: As directed (DME) lancets [OneTouch Delica Plus Lancet] [facility] See Rx Instructions .ROUTE .MEDSUPPLY Dose Instruction: As directed Rx Instructions: test blood sugar 2 x daily anastrozole 1 mg tablet 1 mg PO QAM coenzyme Q10 200 mg capsule 200 mg PO QAM Novolin N FlexPen 100 unit/mL (3 mL) insulin pen See Rx Instructions subcut .COMPLEX 90 Days Qty: 90 3RF Rx Instructions: 48 unit in AM; 44 units PM subcutaneously; Novolin R FlexPen 100 unit/mL (3 mL) insulin pen 30 unit subcut BID 90 Days Qty: 60 2RF (DME) pen needle, diabetic [BD Ultra-Fine Uszette Pen Needle] 32 gauge x 5/32" needle See Dose Instructions .ROUTE .MEDSUPPLY Qty: 400 3RF Rx Instructions: use 4 daily budesonide 0.5 mg/2 mL suspension for nebulization 0.5 mg inhalation BID Qty: 60 1RF cyanocobalamin (vitamin B-12) 2,500 mcg tablet 1,000 mcg PO .3XWK Rx Instructions: 1,000 mcg orally 3x per week; atorvastatin 80 mg tablet 80 mg PO QPM Qty: 90 3RF nitroglycerin [Nitrostat] 0.4 mg tablet, sublingual 0.4 mg Sublingual Q5M PRN (Reason: chest pain) Qty: 25 5RF Rx Instructions: PLACE 1 TAB UNDER TONGUE Q5M FOR UP TO 3 DOSES PRN CHEST PAIN. CALL 911 IF PAIN PERSISTS (DME) nebulizer and compressor Device See Rx Instructions .ROUTE .MEDSUPPLY Qty: 1 0RF Rx Instructions: As directed ipratropium-albuterol 0.5 mg-3 mg(2.5 mg base)/3 mL solution for nebulization 3 ml inhalation Q4H PRN (Reason: wheezing) Qty: 180 1RF primidone [Mysoline] 50 mg tablet 100 mg PO BID 90 Days Qty: 360 1RF alendronate 70 mg tablet 70 mg PO .COMPLEX Qty: 5 11RF Rx Instructions: 70 mg orally once weekly; PreserVision AREDS-2 250-90-40-1 mg Capsule 1 tab PO BID (DME) Spacer for Inhaler Misc See Rx Instructions .Route Qty: 1 0RF Rx Instructions: Use with albuterol inhaler as needed every 2 hours for wheezing. choline [id number] 1 tab PO QAM metoprolol succinate 50 mg Tablet Extended Release 24 Hr 100 mg PO QAM Qty: 30 0RF Entresto 24-26 mg Tablet 1 tab PO BID Qty: 60 0RF isosorbide mononitrate 30 mg tablet extended release 24 hr 30 mg PO UD Rx Instructions: 30 mg po daily. Listed as an adverse reaction on pt chart. Changed furosemide 40 mg tablet 40 mg PO QAM Qty: 0 0RF Rx Instructions: 20 mg po qam. Per fill history, 06/04 medication was filled for 40 mg po daily. Note from heart failure visit states "taking lasix 40 mg daily. Can likely decrease to prn pending on today's labs". Discharge Orders: Discharge Order- CHF (Routine); Ordered 06/11/24 Ordered By: Jeff Jolly Admission Data Admit Date/Time: 06/09/24 12:59 Attending Provider: Jeff Jolly Admit Provider: Xu Kim Primary Care Provider: Bashir Melgar Other Providers: Xu Kim; Kyrie Richardson Other Interventions: Discharge Summary Assessment (RN) Last Done: 06/11/24 11:08 Hospital Stay Data Consultations 06/09/24 10:57 ED Decision to Admit Stat 06/09/24 16:14 Consult Cardiology Routine Diagnostic Imagining Performed 06/09/24 11:18 CT angio chest PE protocol Stat Pending Results Patient Have Any Pending Studies at Discharge: No Discharge Instructions Given to Patient (Per Discharging Provider) You were admitted to [facility] from June 09 - 2024 due to shortness of breath. You were diagnosed with acute on chronic heart failure with reduced ejection fraction. You were treated with intravenous diuresis with Lasix. You were seen by cardiology and now appear back to your dry weight. You will be discharged on and increased dose of Lasix at 40mg PO daily. Your field reviewer also wishes to start on a diabetes medication called Jardiance which also helps with heart failure. Be aware Jardiance in addition to your insulin can cause low blood glucose levels but given your A1C 10.2 this is not anticipated to be an issue - please call your material expeditor for recommendations on reducing insulin if low glucose levels are an issue. Jardiance also increases you risk of urine tract infection - please contact your PCP for advice if you start having painful urination. Please follow up with your field reviewer and the heart failure clinic for ongoing adjustments to your diuretics. Total Time Total Time Spent Total Time Spent (In Minutes): 40 Coding Level of Care Code 95191 INP/OBS DISCH >30 MIN Diagnoses Acute HFrEF (heart failure with reduced ejection fraction) I50.21 JOBY (acute kidney injury) N17.9 Uncontrolled type 2 diabetes mellitus with hyperglycemia, with long-term current use of insulin E11.65; Z79.4 CAD (coronary artery disease) I25.10 Hypertension I10 Dyslipidemia E78.5 Breast cancer C50.919
[2024-06-11 11:09] VITALS: PULSE 66
--- NOTE | 2024-06-12 13:29 | Coding Query ---
CODING QUERY FOR UNCONTROLLED DIABETES To promote full compliance with coding requirements relating to patient care, provider participation is requested in all cases of hose tubing backer uncertainty. Please assist us with the question(s) below: Coding Question: The term uncontrolled Diabetes was used throughout the record. To be able to code this diagnosis properly, could you please clarify the diagnosis below: ( ) Uncontrolled Diabetes meaning hypoglycemia (X ) Uncontrolled Diabetes meaning hyperglycemia - elevated HbA1C ( ) Other (please specify) Principal Diagnosis: "that condition established after study, to be chiefly responsible for occasioning the admission of the patient to the hospital for care." Co-Existing Principal Diagnosis: "when two or more diagnoses equally meet the criteria for principal diagnosis as determined by the circumstances of admission, diagnostic work up, and/or therapy provided, and the Alphabetic Index, Tabular List, or another coding guideline does not provide sequencing direction, any one of the diagnoses may be sequenced first." "When the physician has documented what appears to be a current diagnosis in the body of the record, but has not included the diagnosis in the final diagnostic statement, the physician should be asked whether the diagnosis should be added." (Source Coding Clinic 2 QTR90. p3-4) NORM
[2024-06-16] MEDS ORDERED: ALENDRONATE SODIUM 70 MG TAB PO SCH (06:30)
--- NOTE | 2024-06-17 13:12 | Electrocardiogram Report ---
Test Reason : Blood Pressure : */* mmHG Vent. Rate : 93 BPM Atrial Rate : 93 BPM P-R Int : 156 ms QRS Dur : 90 ms QT Int : 372 ms P-R-T Axes : 61 -38 128 degrees QTcB Int : 462 ms Normal sinus rhythm Possible Left atrial enlargement Left axis deviation Septal infarct (cited on or before 31-May-2024) Marked ST abnormality, possible inferior subendocardial injury Abnormal ECG When compared with ECG of 02-Jun-2024 15:37, Serial changes of Septal infarct Present Confirmed by Ady Ricketts ([id number]) on 06/17/2024 1:12:25 PM Referred By: REFERRED SELF Confirmed By: Ady Ricketts
== END 2024-06-11 12:28 | disposition home or self-care (01) | DRG 682 ==
LOC: ED 09:36 → 2E 12:59 → SUATTDRO 12:59 → INTOOBSV 12:59 → 2E 15:26

== ENCOUNTER 2025-01-09 08:32 | Inpatient (IN) ==
--- NOTE | 2025-01-09 08:43 | Emergency Department Note ---
Impression & Plan Acute respiratory failure with hypoxia and hypercarbia, CHF (congestive heart failure), Pleural effusion ED Provider Note Provider: Chai Brito MD CHIEF COMPLAINT: Difficulty breathing HISTORY OF PRESENT ILLNESS: Patient is a 79-year-old female history of type 2 diabetes, CKD, heart failure/pulmonary hypertension, cardiomyopathy, breast cancer status postmastectomy presenting here today the ambulance from home. Started with some cough yesterday. Woke this morning with severe difficulty breathing and wheezing. Home inhaler was not effective. According to EMS patient was in the low 80s on room air tachypneic. Transition to 8 L mask and then to BiPAP for respiratory support with some improvement. Nebulizer given and route. Patient denies any pain or chest pain. No syncope or falls reported. PAST MEDICAL HISTORY: As noted above MEDICATIONS: Reviewed home medications SOCIAL HISTORY: lives at home PHYSICAL EXAM: GENERAL: alert and oriented in no acute distress on stretcher on BiPAP Head: normocephalic and atraumatic EYES: No injection, discharge or icterus. EOMI. NECK: Trachea midline. Good range of motion ENT: Mucous membranes pink and moist. LUNGS: Airway patent. No retractions but some tachypnea noted. Breath sounds diminished particular in the bases with faint crackles HEART: Regular rate and rhythm. No chest wall tenderness with prior healed mastectomy scars ABDOMEN: Soft and non-tender, without guarding or rebound. SKIN: Acyanotic, warm, dry, without rashes EXTREMITIES: Without tenderness but 1+ bilateral lower extremity edema. NEUROLOGICAL: No focal deficits. No aphasia. No facial droop or slurred speech. Normal strength and tone in the extremities. Sensation to gross touch normal. Ambulatory. EK bpm. Normal sinus rhythm. No acute ST segment elevation or depression with a QTc of 461. Some prominent anterior T waves noted. CONTINUOUS CARDIAC MONITORING: was ordered and showed a heart rate of 70s bpm in normal sinus rhythm Patient's laboratory studies and imaging reviewed. Differential includes Reactive airway disease, pneumonia, pneumothorax, COPD, CHF, infections, cardiac ischemia, pulmonary embolism, musculoskeletal, gastrointestinal, as well as other pathologies. IMPRESSION/MEDICAL DECISION MAKING: Patient with significant cardiac history. Hypoxic with work of breathing earlier today improving now with BiPAP. Chest x-ray obtained and labs sent. No fevers reported. Question of this possibly fluid overload versus pneumonia versus respiratory infection. Patient does not appear to be obtunded but a VBG was obtained. Supportive care blood work shows some elevated glucose of 316 with stable renal function creatinine 1.4. Will complete a CT of the chest for the elucidation of the pulmonary parenchyma as well as to exclude PE. Will give some IV Lasix given concern for fluid overload. VBG with some mild acidosis and elevated CO2 of 58. Again is on BiPAP. Chest x-ray question is pneumonia versus atelectasis with some signs of fluid overload. CT scan was completed. Do see evidence of right greater than left effusions. Again Lasix has been given. Electrolytes with mild hyponatremia. Stable renal function. Hyperglycemia noted. Procalcitonin not elevated. Lactate not elevated. Troponin 82 is higher than baseline. Believe likely demand and she denies pain. BNP of 1590 elevated but has been higher in the past according to records. Respiratory viral panel was completed. Updated family at bedside. Will bring in for further care here to the hospital. Hospitalist team was consulted. DIAGNOSIS: Hypoxic respiratory failure, CHF, pleural effusions DISPOSITION: Hospitalist will evaluate Patient was agreeable with this plan. Critical Care I have personally spent 42 minutes of critical care time in the direct management of this patient. This includes bedside care, interpretation of diagnostic studies, and testing, discussion with consultants, patient, and family members, and other required patient management activities. These 42 minutes is in excess of all separately billable procedures. Past Med/Surg History Problem List (Updated 01/09/25 @ 09:32 by Chai Brito M.D.) Pleural effusion (Acute) CHF (congestive heart failure) (Acute) Acute respiratory failure with hypoxia and hypercarbia (Acute) CKD stage 3b, GFR 30-44 ml/min Normocytic anemia Type 2 diabetes mellitus with retinopathy of both eyes, with long-term current use of insulin Hyperlipidemia Hypertension 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 Mitral regurgitation Pulmonary hypertension Cardiomyopathy Overweight (BMI 25.0-29.9) Sensorineural hearing loss of both ears Diabetic nephropathy associated with type 2 diabetes mellitus Glenohumeral arthritis CAD (coronary artery disease) (Chronic) Osteopenia (Acute) Depression (Chronic) Breast cancer (Chronic 07/2017) left breast infiltrating ductal CA dx 07/2017 (ER+/CT+, Her 2 -) and right breast invasive ductal CA dx 11/2017 (ER+/CT+, Her 2 +), s/p elective B/L mastectomy with right axillary dissection (0/7 nodes +), on Arimedex since Jan 2018 Medical History (Updated 01/09/25 @ 09:32 by Chai Brito M.D.) Solitary pulmonary nodule stable, seen by pulm, no further follow up recommended Internal hemorrhoid Seborrheic keratoses NSTEMI (non-ST elevated myocardial infarction) Myocardial Infarction 2009 History of COVID-19 01/2021>MILD SYMPTOMS *RESOLVED Surgical History (Updated 01/06/25 @ 11:56 by Piedad Cronin MD) H/O bilateral mastectomy SURGERY ONLY>(NO LIMB RESTRICTION) NO RECONSTRUCTION H/O lumpectomy LEFT X 2 History of tooth extraction History of surgery Right Axillary Dissection, Bilateral Breast Scar Revision - 12/2017 [facility] History of colonoscopy History of trigger finger right thumb release History of open reduction and internal fixation (ORIF) procedure RT ANKLE History of cataract surgery RT/LEFT History of cardiac cath STENTS 06/2010 IN [place] (DIAG AND CX), 1 STENT 04/2011, AND 1 STENT 2013 [place] History of coronary artery bypass graft 3 VESSELS-2009 AT [facility] *FOLLOWS WITH DR. HAMMER Family History Sister Breast cancer Father Alcoholism Mother Heart disease Uncle Heart disease Daughter Family history of diabetes mellitus Other No family history of adverse response to anesthesia Denies family history of Ovarian cancer Prostate cancer Myocardial infarction Colorectal cancer Social History Smoking Status: Former smoker Tobacco Type: Cigarettes Age Started Using Tobacco: 13; Age Quit Using Tobacco: 43; packs per day: 0.75; Second Hand Exposure: No; Do You Dip or Chew Tobacco: No; Hx Alcohol Use: No Hx Substance Use: No Preferred Language: Sierra Leonean Communication Ability: Effective Visual Impairment: No Limitations Hearing Ability: Normal Consulting 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 Required: Voice Beliefs That Will Affect Care: Baptist marital status: Current Living Situation: Spouse Current Living Situation Comment: single story house current occupational status: retired current occupation: Retired Feels Safe at Home: Yes Childhood Exposure to Second-Hand Smoke: Yes Diet: regular caffeine: Yes Dental Care, Regularly: No Physical Activity Frequency: Does not Exercise Seatbelt Use: always Sunscreen Use: Yes Assistive Devices: Cane Allergies Allergies Allergy/AdvReac Type Severity Reaction Status Date / Time lisinopril Allergy Intermediate Cough Verified 01/01/25 15:54 isosorbide AdvReac Headache Verified 01/01/25 15:54 Home Meds Home Medications Medication Instructions Recorded Confirmed anastrozole 1 mg tablet 1 mg PO QAM 11/08/18 01/09/25 coenzyme Q10 200 mg capsule 200 mg PO QAM 01/06/20 01/09/25 vit C 250 mg-vit E 90 mg-zinc 40 1 tab PO BID 09/26/21 01/09/25 mg-copper 1 [id number] capsule (PreserVision AREDS-2) prevagen 1 tab PO DAILY 05/29/22 01/09/25 cyanocobalamin (vitamin B-12) 1,000 mcg PO .3XWK 12/19/23 01/09/25 2,500 mcg tablet choline [id number] 1 tab PO QAM 05/31/24 01/09/25 primidone 50 mg tablet (Mysoline) See Rx Instructions PO .COMPLEX 06/20/24 01/09/25 insulin regular human 100 unit/mL 31 unit subcut BID 09/05/24 01/09/25 (3 mL) subcutaneous pen (Novolin R FlexPen) alendronate 70 mg tablet 70 mg PO WK 01/09/25 01/09/25 Previous Rx's Medication Instructions Recorded Spacer for Inhaler #1 ea 09/27/21 insulin NPH isoph U-100 human 100 See Rx Instructions subcut 05/23/23 unit/mL (3 mL) subcutaneous pen .COMPLEX 90 days #90 mL (Novolin N FlexPen) pen needle, diabetic 32 gauge x #400 ea 05/23/23" (BD Ultra-Fine Suzette Pen Needle) ipratropium 0.5 mg-albuterol 3 mg 3 ml inhalation Q4H PRN wheezing 07/10/23 (2.5 mg base)/3 mL nebulization #180 mL soln nebulizer and compressor #1 ea 07/10/23 budesonide 0.5 mg/2 mL suspension 0.5 mg (2 mL) inhalation BID #60 mL 07/30/23 for nebulization nitroglycerin 0.4 mg sublingual 0.4 mg sublingual Q5M PRN chest 01/08/24 tablet (Nitrostat) pain #25 tabs albuterol sulfate 90 mcg/actuation 2 puff inhalation Q6H PRN Wheezing 01/17/24 aerosol inhaler #18 grams clopidogrel 75 mg tablet 75 mg PO DAILY #90 tabs 05/28/24 empagliflozin 10 mg tablet 10 mg PO DAILY #30 tabs 06/20/24 (Jardiance) furosemide 40 mg tablet 20 mg (1/2 x 40 mg) PO QAM #90 tabs 07/10/24 metoprolol succinate 200 mg 200 mg PO QAM #90 tabs 08/22/24 tablet,extended release 24 hr carbidopa 25 mg-levodopa 100 mg 1 tab PO TID #90 tabs 10/30/24 tablet metformin 500 mg tablet 500 mg PO BIDWMEAL 90 days #180 12/16/24 tabs blood sugar diagnostic (True #300 ea 12/30/24 Metrix Glucose Test Strip) blood-glucose meter (True Metrix #1 ea 12/30/24 Glucose Meter) lancets 33 gauge (TRUEplus Lancets) #300 ea 12/30/24 blood-glucose sensor (TRELYScom G7 #1 ea 01/01/25 Sensor device) losartan 50 mg tablet 50 mg PO DAILY #90 tabs 01/02/25 atorvastatin 80 mg tablet 80 mg PO QPM #90 tabs 01/05/25 Results & Data (ED) Vital Signs Vital Signs - 24 hr 01/09/25 08:38 01/09/25 08:38 01/09/25 08:40 Temperature 36.4 C L Temperature Source Oral Pulse Rate 74 76 Pulse Rate from SpO2 Sensor Respiratory Rate 27 H Respiratory Effort / Characteristics Non-Labored Spontaneous Respiratory Depth Deep Respiratory Pattern Regular Blood Pressure 174/92 H Blood Pressure Mean 119 Blood Pressure Position Lying Pulse Oximetry 97 Oxygen Delivery Method BiPAP BiPAP Fraction of Inspired Oxygen Sepsis Recent Fever Within 48 Hours No Sepsis New/Unexplained Change in Mental Status No Sepsis Action Taken by Nursing No Action Required 01/09/25 08:45 01/09/25 08:48 01/09/25 08:56 Temperature Temperature Source Pulse Rate 76 76 Pulse Rate from SpO2 Sensor 75 Respiratory Rate 28 H 25 H Respiratory Effort / Characteristics Spontaneous Short of Breath Respiratory Depth Normal Respiratory Pattern Tachypnea Blood Pressure Blood Pressure Mean Blood Pressure Position Pulse Oximetry 98 97 100 Oxygen Delivery Method BiPAP BiPAP Fraction of Inspired Oxygen 30 Sepsis Recent Fever Within 48 Hours Sepsis New/Unexplained Change in Mental Status Sepsis Action Taken by Nursing 01/09/25 08:56 01/09/25 09:01 01/09/25 09:03 Temperature Temperature Source Pulse Rate 71 Pulse Rate from SpO2 Sensor 71 Respiratory Rate 27 H Respiratory Effort / Characteristics Respiratory Depth Respiratory Pattern Blood Pressure 150/39 H Blood Pressure Mean 45 Blood Pressure Position Pulse Oximetry 100 98 Oxygen Delivery Method BiPAP BiPAP Fraction of Inspired Oxygen Sepsis Recent Fever Within 48 Hours Sepsis New/Unexplained Change in Mental Status Sepsis Action Taken by Nursing 01/09/25 09:27 01/09/25 09:38 01/09/25 09:48 Temperature Temperature Source Pulse Rate 92 H 68 Pulse Rate from SpO2 Sensor 83 68 Respiratory Rate 22 21 Respiratory Effort / Characteristics Respiratory Depth Respiratory Pattern Blood Pressure 148/89 H Blood Pressure Mean 110 Blood Pressure Position Pulse Oximetry 97 100 Oxygen Delivery Method BiPAP BiPAP Fraction of Inspired Oxygen Sepsis Recent Fever Within 48 Hours Sepsis New/Unexplained Change in Mental Status Sepsis Action Taken by Nursing 01/09/25 09:57 01/09/25 10:01 01/09/25 10:09 Temperature Temperature Source Pulse Rate 70 67 Pulse Rate from SpO2 Sensor 70 67 Respiratory Rate 19 19 Respiratory Effort / Characteristics Respiratory Depth Respiratory Pattern Blood Pressure 135/75 Blood Pressure Mean 98 Blood Pressure Position Pulse Oximetry 97 98 Oxygen Delivery Method BiPAP BiPAP Fraction of Inspired Oxygen Sepsis Recent Fever Within 48 Hours Sepsis New/Unexplained Change in Mental Status Sepsis Action Taken by Nursing 01/09/25 10:33 01/09/25 10:46 01/09/25 11:20 Temperature Temperature Source Pulse Rate 68 70 72 Pulse Rate from SpO2 Sensor Respiratory Rate 12 22 20 Respiratory Effort / Characteristics Non-Labored Spontaneous Respiratory Depth Normal Respiratory Pattern Regular Blood Pressure 154/76 H Blood Pressure Mean Blood Pressure Position Pulse Oximetry 97 100 Oxygen Delivery Method BiPAP Fraction of Inspired Oxygen 25 Sepsis Recent Fever Within 48 Hours Sepsis New/Unexplained Change in Mental Status Sepsis Action Taken by Nursing Laboratory Data 01/09/25 08:46 01/09/25 08:46 Lab Results 01/09/25 01/09/25 01/09/25 Range/Units 08:40 08:45 08:46 WBC 9.89 (4.8-10.8) K/ul RBC 3.87 L (4.20-5.40) M/uL Hgb 11.1 L (12.0-16.0) g/dl POC Hgb (12.0-16.0) g/dl Hct 34.7 L (37.0-47.0) % POC Hct (37-47) % MCV 89.7 (80.0-100.0) fL MCH 28.7 (25.0-34.0) pg MCHC 32.0 (32.0-36.0) g/dL RDW Std Deviation 47.8 H (36.4-46.3) fL RDW Coeff of Sarina 14.8 H (11.5-14.5) % Plt Count 239 (130-400) K/uL MPV 10.4 (9.4-12.4) fL Immature Gran % (Auto) 0.3 % Neut % (Auto) 80.1 % Lymph % (Auto) 8.9 % [place] % (Auto) 7.8 % Eos % (Auto) 2.5 % Baso % (Auto) 0.4 % Neut # (Auto) 7.92 H (1.40-6.50) K/uL Lymph # (Auto) 0.88 L (1.20-3.40) K/uL [place] # (Auto) 0.77 H (0.11-0.59) K/uL Eos # (Auto) 0.25 (0.00-0.50) K/uL Baso # (Auto) 0.04 (0.00-0.20) K/uL Immature Gran # (Auto) 0.03 (0.01-0.20) K/uL PT 11.2 (9.0-12.0) Seconds INR 1.1 (0.9-1.1) APTT 25 (21-31) Seconds PTT Ratio 0.9 VBG pH 7.27 L (7.36-7.41) VBG pCO2 58 H (38-50) mmHg VBG pO2 25 mmHg VBG HCO3 27 mmol/L VBG O2 Saturation < 60.0 % VBG Base Excess -1.4 mEq/L POC Sodium (135-144) mmol/L Sodium 133 L (136-145) mmol/L POC Potassium (3.3-5.0) mmol/L Potassium 4.8 (3.5-5.1) mmol/L POC Chloride (101-112) mmol/L Chloride 98 (98-107) mmol/L Carbon Dioxide 27 (21-32) mmol/L POC Total CO2 (24-31) mmol/L Anion Gap 8 (3-11) POC Anion Gap (16-25) mmol/L POC BUN (7-18) mg/dl BUN 31 H (6-23) mg/dl Creatinine 1.29 H (0.6-1.2) mg/dl POC Creatinine (0.6-1.3) mg/dl Est Cr Clr Drug Dosing 31.7 ml/min eGFR 41.70 BUN/Creatinine Ratio 24.0 H (10-20) Glucose 328 H* (70-99(Fasting)) mg/dl POC Glucose (other) (70-99) mg/dl Lactate 1.6 (0.4-2.0) mmol/L Calcium 9.5 (8.6-10.3) mg/dl POC Ioniz Calcium Tariq (1.12-1.32) mmol/l Magnesium 2.1 (1.7-2.4) mg/dl Total Bilirubin 0.4 (0.2-1.0) mg/dl AST 37 (13-39) U/L ALT 19 (7-52) U/L Alkaline Phosphatase 81 (34-104) U/L Troponin I High Sens 82.2 H* (0-14) pg/ml B-Natriuretic Peptide 1590 H (0-100) pg/ml Total Protein 7.5 (6.0-8.3) gm/dl Albumin 3.8 (3.4-5.0) gm/dl Globulin 3.7 (2.5-4.0) gm/dl Albumin/Globulin Ratio 1.0 (0.9-2) Procalcitonin 0.04 (0-0.5) ng/ml Adenovirus (PCR) Not Detected (NotDetected) B. pertussis DNA (PCR) Not Detected (NotDetected) B.parapertussis DNA PCR Not Detected (NotDetected) C. pneumoniae DNA (PCR) Not Detected (NotDetected) Coronavirus OC43 (PCR) Not Detected (NotDetected) Coronavirus HKU1 (PCR) Not Detected (NotDetected) Coronavirus 229E (PCR) Not Detected (NotDetected) SARS-CoV-2 (PCR) Not Detected (NotDetected) Coronavirus NL63 (PCR) Not Detected (NotDetected) Human Metapneumovir PCR Not Detected (NotDetected) Influenza Type A (PCR) Not Detected (NotDetected) Influenza Type B (PCR) Not Detected (NotDetected) M. pneumoniae (PCR) Not Detected (NotDetected) Parainfluenza 1 (PCR) Not Detected (NotDetected) Parainfluenza 2 (PCR) Not Detected (NotDetected) Parainfluenza 3 (PCR) Not Detected (NotDetected) Parainfluenza 4 (PCR) Not Detected (NotDetected) RSV (PCR) Not Detected (NotDetected) Entero/Rhino (PCR) Not Detected (NotDetected) 01/09/25 01/09/25 Range/Units 08:54 11:09 WBC (4.8-10.8) K/ul RBC (4.20-5.40) M/uL Hgb (12.0-16.0) g/dl POC Hgb 12.2 (12.0-16.0) g/dl Hct (37.0-47.0) % POC Hct 36 L (37-47) % MCV (80.0-100.0) fL MCH (25.0-34.0) pg MCHC (32.0-36.0) g/dL RDW Std Deviation (36.4-46.3) fL RDW Coeff of Sarina (11.5-14.5) % Plt Count (130-400) K/uL MPV (9.4-12.4) fL Immature Gran % (Auto) % Neut % (Auto) % Lymph % (Auto) % [place] % (Auto) % Eos % (Auto) % Baso % (Auto) % Neut # (Auto) (1.40-6.50) K/uL Lymph # (Auto) (1.20-3.40) K/uL [place] # (Auto) (0.11-0.59) K/uL Eos # (Auto) (0.00-0.50) K/uL Baso # (Auto) (0.00-0.20) K/uL Immature Gran # (Auto) (0.01-0.20) K/uL PT (9.0-12.0) Seconds INR (0.9-1.1) APTT (21-31) Seconds PTT Ratio VBG pH (7.36-7.41) VBG pCO2 (38-50) mmHg VBG pO2 mmHg VBG HCO3 mmol/L VBG O2 Saturation % VBG Base Excess mEq/L POC Sodium 135 (135-144) mmol/L Sodium (136-145) mmol/L POC Potassium 4.8 (3.3-5.0) mmol/L Potassium (3.5-5.1) mmol/L POC Chloride 100 L (101-112) mmol/L Chloride (98-107) mmol/L Carbon Dioxide (21-32) mmol/L POC Total CO2 25 (24-31) mmol/L Anion Gap (3-11) POC Anion Gap 15.0 L (16-25) mmol/L POC BUN 32 H (7-18) mg/dl BUN (6-23) mg/dl Creatinine (0.6-1.2) mg/dl POC Creatinine 1.4 H (0.6-1.3) mg/dl Est Cr Clr Drug Dosing ml/min eGFR BUN/Creatinine Ratio (10-20) Glucose (70-99(Fasting)) mg/dl POC Glucose (other) 316 H (70-99) mg/dl Lactate (0.4-2.0) mmol/L Calcium (8.6-10.3) mg/dl POC Ioniz Calcium Tariq 1.20 (1.12-1.32) mmol/l Magnesium (1.7-2.4) mg/dl Total Bilirubin (0.2-1.0) mg/dl AST (13-39) U/L ALT (7-52) U/L Alkaline Phosphatase (34-104) U/L Troponin I High Sens 74.4 H* (0-14) pg/ml B-Natriuretic Peptide (0-100) pg/ml Total Protein (6.0-8.3) gm/dl Albumin (3.4-5.0) gm/dl Globulin (2.5-4.0) gm/dl Albumin/Globulin Ratio (0.9-2) Procalcitonin (0-0.5) ng/ml Adenovirus (PCR) (NotDetected) B. pertussis DNA (PCR) (NotDetected) B.parapertussis DNA PCR (NotDetected) C. pneumoniae DNA (PCR) (NotDetected) Coronavirus OC43 (PCR) (NotDetected) Coronavirus HKU1 (PCR) (NotDetected) Coronavirus 229E (PCR) (NotDetected) SARS-CoV-2 (PCR) (NotDetected) Coronavirus NL63 (PCR) (NotDetected) Human Metapneumovir PCR (NotDetected) Influenza Type A (PCR) (NotDetected) Influenza Type B (PCR) (NotDetected) M. pneumoniae (PCR) (NotDetected) Parainfluenza 1 (PCR) (NotDetected) Parainfluenza 2 (PCR) (NotDetected) Parainfluenza 3 (PCR) (NotDetected) Parainfluenza 4 (PCR) (NotDetected) RSV (PCR) (NotDetected) Entero/Rhino (PCR) (NotDetected) Administered Medications Discontinued Medications Furosemide (Furosemide 40 Mg/4 Ml Vial) 40 mg IV ONE ONE Stop: 01/09/25 08:59 Last Admin: 01/09/25 09:04 Dose: 40 mg Documented By: MILES Ioversol (Optiray 320 125ml) 120 ml IV ONCE ONE Stop: 01/09/25 09:17 Last Admin: 01/09/25 09:17 Dose: 120 ml Documented By: IAN Imaging Data Radiologist's Impression: Chest X-Ray 01/09/25 08:33 XR chest 1V portable CLINICAL HISTORY: Dyspnea COMPARISON STUDY: 06/09/2024 FINDINGS: Stable CABG. Stable cardiomegaly with increased pulmonary vascular congestion. There is increased stranding opacity in the lung bases. There is blunting of the costophrenic angles. There is pulmonary interstitial prominence. No pneumothorax. IMPRESSION: 1. CHF with small pleural effusions. 2. Atelectasis versus pneumonia in the lung bases. ACT 112: Negative or not required by law. Electronically signed by: Joshua Singh M.D. 01/09/2025 9:18 AM Chest CTA 01/09/25 08:58 CT ANGIOGRAM OF THE CHEST CLINICAL HISTORY: Dyspnea. Hypoxia. COMPARISON STUDY: Chest x-ray dated 01/09/2025. Prior chest CT scans, most recently dated 06/09/2024 TECHNIQUE: Following the IV administration of 120 cc of Optiray 320, CT angiogram of the chest was performed from the upper abdomen to the thoracic inlet utilizing the pulmonary embolus protocol. Images are reviewed in the axial, sagittal, and coronal planes. 3-D MIPS images are created and assessed. IV contrast was administered without complication. A dose lowering technique was utilized adhering to the principles of ALARA. CT DOSE: 872.56 mGy.cm FINDINGS: Thyroid: Enlarged and heterogeneous, typical for goiter. Thoracic aorta: There is atherosclerotic calcification of the thoracic aorta, which is normal in caliber and demonstrates bovine variant arch anatomy. No dissection is seen. Pulmonary vasculature: The main pulmonary arteries are dilated suggesting pulmonary artery hypertension. There are no filling defects identified in main, lobar, or segmental pulmonary branches to suggest pulmonary embolus. Heart: The patient is status post midline sternotomy. The heart is enlarged and without pericardial effusion. The coronary arteries are densely calcified. Lungs and pleural spaces: Evaluation of the lung parenchyma is degraded by motion artifact. Diffuse interlobular septal thickening indicates fluid overload/congestive change. There are [id number] pleural effusions, right larger than left with dependent atelectasis. The trachea and central airways are clear. An 8 mm left upper lobe pulmonary nodule has been present dating back to at least 2019. This is of low suspicion given long-term stability. No new or enlarging pulmonary lesions identified. Mediastinum: Mildly enlarged mediastinal lymph nodes are similar to previous. A right paratracheal node measures up to 12 mm short axis. Prevascular nodes measure up to 8 mm in short axis. Marce: Clear. Axillae: There is no axillary lymphadenopathy. Upper abdomen: Reflux of contrast into the IVC and hepatic veins suggests cardiac dysfunction. There is a small hiatal hernia. Skeletal structures: The skeletal structures are osteopenic. Degenerative change is noted in the shoulders and thoracic spine. Periostitis of the left scapula is unchanged trauma and may be related to prior trauma. Bursal fluid is seen around both shoulders. There are chronic/healed left-sided rib fractures. No lytic or blastic bony lesions are seen. IMPRESSION: 1. There is no evidence of pulmonary embolus in the main, lobar, or segmental pulmonary arteries. 2. Cardiomegaly with evidence of congestive failure and cardiac dysfunction. 3. Right larger than left pleural effusions with dependent atelectasis. 4. Mildly enlarged mediastinal lymph nodes are nonspecific and likely reactive. These are similar to previous. 5. Additional findings as above. ACT 112: Negative or not required by law. Electronically signed by: Hira Callejas M.D. 01/09/2025 9:51 AM Discharge Plan Visit Data Chief Complaint: Respiratory Distress Stated Complaint: RISP. DISTRESS ED Provider: Chai Brito Discharge Problem: Acute respiratory failure with hypoxia and hypercarbia, CHF (congestive heart failure), Pleural effusion Patient Disposition: Being Evaluated by Hospitalist Condition: Serious Discharge Instructions Interventions: ED Discharge Assessment Last Done: 01/09/25 11:20 Forms Stand Alone Forms: [place] Prescriptions Prescriptions: No Action albuterol sulfate 90 mcg/actuation HFA aerosol inhaler 2 puff INHALATION Q6H PRN (Reason: Wheezing) Qty: 18 3RF clopidogrel 75 mg tablet 75 mg PO DAILY Qty: 90 3RF metformin 500 mg tablet 500 mg PO BIDWMEAL 90 Days Qty: 180 3RF (DME) blood-glucose meter [True Metrix Glucose Meter] Misc See Rx Instructions .Route Qty: 1 1RF Rx Instructions: Check blood glucose 3 times daily (DME) True Metrix Glucose Test Strip Strip See Rx Instructions .Route Qty: 300 3RF Rx Instructions: Check blood glucose 3 times daily (DME) lancets [TRUEplus Lancets] 33 gauge misc See Rx Instructions .Route Qty: 300 3RF Rx Instructions: Check blood glucose 3 times weekly losartan 50 mg tablet 50 mg PO DAILY Qty: 90 3RF atorvastatin 80 mg tablet 80 mg PO QPM Qty: 90 3RF prevagen 1 tab PO DAILY anastrozole 1 mg tablet 1 mg PO QAM coenzyme Q10 200 mg capsule 200 mg PO QAM Novolin N FlexPen 100 unit/mL (3 mL) insulin pen See Rx Instructions subcut .COMPLEX 90 Days Qty: 90 3RF Rx Instructions: 48 unit in AM; 44 units PM subcutaneously; (DME) pen needle, diabetic [BD Ultra-Fine Suzette Pen Needle] 32 gauge x 5/32" needle See Dose Instructions .ROUTE .MEDSUPPLY Qty: 400 3RF Rx Instructions: use 4 daily budesonide 0.5 mg/2 mL suspension for nebulization 0.5 mg inhalation BID Qty: 60 1RF cyanocobalamin (vitamin B-12) 2,500 mcg tablet 1,000 mcg PO .3XWK Rx Instructions: 1,000 mcg orally 3x per week; nitroglycerin [Nitrostat] 0.4 mg tablet, sublingual 0.4 mg Sublingual Q5M PRN (Reason: chest pain) Qty: 25 5RF Rx Instructions: PLACE 1 TAB UNDER TONGUE Q5M FOR UP TO 3 DOSES PRN CHEST PAIN. CALL 911 IF PAIN PERSISTS carbidopa-levodopa 25-100 mg tablet 1 tab PO TID Qty: 90 2RF Rx Instructions: take 1/2 tab tid for one week, then take 1 whole tab tid thereafter furosemide 40 mg tablet 20 mg PO QAM Qty: 90 3RF metoprolol succinate 200 mg tablet extended release 24 hr 200 mg PO QAM Qty: 90 3RF Novolin R FlexPen 100 unit/mL (3 mL) insulin pen 31 unit subcut BID (DME) Dexcom G7 Sensor Device See Rx Instructions .Route Qty: 1 3RF Rx Instructions: As directed -exchange every 10 days (DME) nebulizer and compressor Device See Rx Instructions .ROUTE .MEDSUPPLY Qty: 1 0RF Rx Instructions: As directed ipratropium-albuterol 0.5 mg-3 mg(2.5 mg base)/3 mL solution for nebulization 3 ml inhalation Q4H PRN (Reason: wheezing) Qty: 180 1RF Jardiance 10 mg tablet 10 mg PO DAILY Qty: 30 1RF primidone [Mysoline] 50 mg tablet See Rx Instructions PO .COMPLEX Rx Instructions: 2 tabs in the AM, 1 tab in the PM orally PreserVision AREDS-2 250-90-40-1 mg Capsule 1 tab PO BID (DME) Spacer for Inhaler Misc See Rx Instructions .Route Qty: 1 0RF Rx Instructions: Use with albuterol inhaler as needed every 2 hours for wheezing. choline [id number] 1 tab PO QAM alendronate 70 mg tablet 70 mg PO WK Rx Instructions: 70 mg orally once weekly; Referrals Referrals: Piedad Cronin MD [Primary Care Provider] -
[2025-01-09 08:59] LABS: Base Excess VBG -1.4 mEq/L; HCO3 VBG 27 mmol/L; Oxygen Saturation VBG < 60.0 %; PCO2 VBG 58 mmHg (38-50); PO2 VBG 25 mmHg; pH VBG 7.27 (7.36-7.41)
[2025-01-09] MEDS: FUROSEMIDE 40 MG/4 ML VIAL IV ONE (09:04)
[2025-01-09 09:12] LABS: Hematocrit (blood only) 34.7 % (37.0-47.0); Hemoglobin 11.1 g/dl (12.0-16.0); Immature Granulocytes # (auto) 0.03 K/uL (0.01-0.20); Immature Granulocytes % (auto) 0.3 %; Mean Corpuscular Hemoglobin 28.7 pg (25.0-34.0); Mean Corpuscular Volume 89.7 fL (80.0-100.0); Platelet Count 239 K/uL (130-400); RDW Standard Deviation 47.8 fL (36.4-46.3); Red Blood Count 3.87 M/uL (4.20-5.40); White Blood Count 9.89 K/ul (4.8-10.8)
[2025-01-09] MEDS: OPTIRAY 320 125ml IV ONE (09:17)
--- NOTE | 2025-01-09 09:19 | XRay Report ---
XR chest 1V portable CLINICAL HISTORY: Dyspnea COMPARISON STUDY: 06/09/2024 FINDINGS: Stable CABG. Stable cardiomegaly with increased pulmonary vascular congestion. There is inc reased stranding opacity in the lung bases. There is blunting of the costophrenic angles. There is pu lmonary interstitial prominence. No pneumothorax. IMPRESSION: 1. CHF with small pleural effusions. 2. Atelectasis versus pneumonia in the lung bases. ACT 112: Negative or not required by law. Electronically signed by: Joshua Singh M.D. 01/09/2025 9:18 AM
[2025-01-09 09:43] LABS: INR 1.1 (0.9-1.1); Partial Thromboplastin Time 25 Seconds (21-31); Prothrombin Time 11.2 Seconds (9.0-12.0)
[2025-01-09 09:46] LABS: Alanine Aminotransferase 19.0 U/L (7-52); Albumin Globulin Ratio 1.0 (0.9-2); Albumin Level 3.8 gm/dl (3.4-5.0); Alkaline Phosphatase 81.0 U/L (34-104); Anion Gap 8.0 (3-11); Bilirubin,Total 0.4 mg/dl (0.2-1.0); Blood Urea Nitrogen 31.0 mg/dl (6-23); Calcium 9.5 mg/dl (8.6-10.3); Carbon Dioxide 27.0 mmol/L (21-32); Chloride 98.0 mmol/L (98-107); Creatinine Clr Calc Pharmacy 31.7 ml/min; Globulin 3.7 gm/dl (2.5-4.0); Glucose 328.0 mg/dl (70-99(Fasting)); Magnesium 2.1 mg/dl (1.7-2.4); Potassium 4.8 mmol/L (3.5-5.1); Sodium 133.0 mmol/L (136-145); Total Protein 7.5 gm/dl (6.0-8.3)
--- NOTE | 2025-01-09 09:52 | CT Scan Report ---
CT ANGIOGRAM OF THE CHEST CLINICAL HISTORY: Dyspnea. Hypoxia. COMPARISON STUDY: Chest x-ray dated 01/09/2025. Prior chest CT scans, most recently dated 06/09/2024 TECHNIQUE: Following the IV administration of 120 cc of Optiray 320, CT angiogram of the chest was pe rformed from the upper abdomen to the thoracic inlet utilizing the pulmonary embolus protocol. Images are reviewed in the axial, sagittal, and coronal planes. 3-D MIPS images are created and assessed. I V contrast was administered without complication. A dose lowering technique was utilized adhering to the principles of ALARA. CT DOSE: 872.56 mGy.cm FINDINGS: Thyroid: Enlarged and heterogeneous, typical for goiter. Thoracic aorta: There is atherosclerotic calcification of the thoracic aorta, which is normal in milagros ewelina and demonstrates bovine variant arch anatomy. No dissection is seen. Pulmonary vasculature: The main pulmonary arteries are dilated suggesting pulmonary artery hypertensi on. There are no filling defects identified in main, lobar, or segmental pulmonary branches to sugges t pulmonary embolus. Heart: The patient is status post midline sternotomy. The heart is enlarged and without pericardial e ffusion. The coronary arteries are densely calcified. Lungs and pleural spaces: Evaluation of the lung parenchyma is degraded by motion artifact. Diffuse i nterlobular septal thickening indicates fluid overload/congestive change. There are [id number] pleural effusions, right larger than left with dependent atelectasis. The trachea and central airway s are clear. An 8 mm left upper lobe pulmonary nodule has been present dating back to at least 2019. This is of low suspicion given long-term stability. No new or enlarging pulmonary lesions identified. Mediastinum: Mildly enlarged mediastinal lymph nodes are similar to previous. A right paratracheal no de measures up to 12 mm short axis. Prevascular nodes measure up to 8 mm in short axis. Marce: Clear. Axillae: There is no axillary lymphadenopathy. Upper abdomen: Reflux of contrast into the IVC and hepatic veins suggests cardiac dysfunction. There is a small hiatal hernia. Skeletal structures: The skeletal structures are osteopenic. Degenerative change is noted in the shou lders and thoracic spine. Periostitis of the left scapula is unchanged trauma and may be related to p rior trauma. Bursal fluid is seen around both shoulders. There are chronic/healed left-sided rib frac tures. No lytic or blastic bony lesions are seen. IMPRESSION: 1. There is no evidence of pulmonary embolus in the main, lobar, or segmental pulmonary arteries. 2. Cardiomegaly with evidence of congestive failure and cardiac dysfunction. 3. Right larger than left pleural effusions with dependent atelectasis. 4. Mildly enlarged mediastinal lymph nodes are nonspecific and likely reactive. These are similar to previous. 5. Additional findings as above. ACT 112: Negative or not required by law. Electronically signed by: Hira Callejas M.D. 01/09/2025 9:51 AM
[2025-01-09 10:14] LABS: Chlamydia pneumoniae PCR Not Detected (NotDetected); Coronavirus 229E PCR Not Detected (NotDetected); Coronavirus CoV-2 (COVID19)PCR Not Detected (NotDetected); Coronavirus HKU1 PCR Not Detected (NotDetected); Coronavirus NL63 PCR Not Detected (NotDetected); Coronavirus OC43PCR Not Detected (NotDetected); Human Metapneumovirus PCR Not Detected (NotDetected); Parainfluenza Virus 1 PCR Not Detected (NotDetected); Parainfluenza Virus 2 PCR Not Detected (NotDetected); Parainfluenza Virus 3 PCR Not Detected (NotDetected); Parainfluenza Virus 4 PCR Not Detected (NotDetected); Respiratory Syncytial VirusPCR Not Detected (NotDetected); Rhinovirus/Enterovirus PCR Not Detected (NotDetected)
[2025-01-09] MEDS ORDERED: POLYETHYLENE (MIRALAX) 17 GM PACK PO PRN (10:23)
[2025-01-09] MEDS ORDERED: PHARMACY GLYCEMIC MGMT CONSULT PRN (10:23)
--- NOTE | 2025-01-09 11:05 | History & Physical Report ---
Date of Service January 09, 2025 Assessment & Plan (1) Acute respiratory failure with hypoxia and hypercarbia: (2) CHF (congestive heart failure): (3) Type 2 diabetes mellitus with retinopathy of both eyes, with long-term current use of insulin: (4) CKD stage 3b, GFR 30-44 ml/min: Plan This is an 79 year old female with past medical history of CHF, CKD, T2DM, pulmonary hypertension who presented to the ED on 01/09/2025 with shortness of breath. While in the ED, she was found to be hypoxic on arrival in the low 80s & was placed on BiPAP w/ improvement to O2 of 98%. EKG without signs of ischemia. Her CXR was read as CHF w/ small pleural effusions and chest CTA was negative for PE or pneumonia. CBC was consistent with anemia which is within her baseline. No leukocytosis. PT/INR stable. VBGs w/ pH 7.27, pCO2 58, pO2 25, HCO3 27. CMP w/ mild hyponatremia of 133, creatinine mildly elevated at 1.29, BG elevated at 328, Lactate WNL. Mag WNL. LFTs WNL. Trop elevated at 82.2 and BNP elevated at 1590. Procal negative. Respiratory biofire negative. Blood cultures are pending. #Acute exacerbation of CHF w/ hypoxia in route and placed on BiPAP in ED. Follows w/ CHF clinic in outpatient --> on Lasix 20mg PO daily outpatient & is compliant. On Jardiance which can be held inpatient. CXR: consistent with CHF Chest CTA: negative for PE/pnuemonia. Also consistent w/ CHF BNP elevated at 1590, repeat in AM Trop elevated at 82.2 --> likely demand in setting of acute CHF. Pt w/o CP & EKG w/o ischemia. repeat pending. CBC w/ stable hgb within her baseline. BMP w/ creatinine of 1.29 & Na of 133, likely secondary to volume overload. Will continue to trend. VBGs: pH 7.27; pCO2 58; pO2 25; HCO3 27 Continue BiPAP wean when able. s/p IV Lasix 40mg IV in ED --> Continue BID17 dosing upon admission Monitor intake & output --> w/o aguilar but if unable to accurately measure I&O's w/ purwick will have to have aguilar placed. Repeat echo pending. Most recent Echo 12/05/2024: EF 40-45%; mild-mod MR #Type 2 DM BG elevated at 328 on admission, elevation secondary to missing AM dose of insulin. A1c 05/2024: 8.3% --> repeat in AM on Metformin + NPH insulin + regular human insulin outpatient. Novolog w/ SSI Will consult pharmacy to aide in glycemic management Carb consistent diet/heart healthy when able to be off BiPAP #Cirrhosis ? CTAP from 05/2024 findings consistent w/ cirrhosis. LFTs WNL, plt count stable. PT/INR stable. In setting of distended abdomen obtain US to eval for ascites + recheck liver for cirrhosis. #CAD recent heart cath 06/03/2024 w/ prior LAD stent occlusion, severe CAD involving cicumflex system. Medical therapy recommended by interventional cardiology hx of Gastric ulcer/black stools --> on monotherapy w/ Plavix. Continue statin #HTN BP elevated on admission Continue Losartan + Metoprolol succinate Continue to monitor #CKD stage 3 Creatinine baseline: 1.2-1.4 - stable at 1.29 Na mildly low at 133 in setting of volume overload K/mag stable. #Tremor - Carbidopa-levodopa TID DVT prophylaxis: Lovenox Code: full Case discussed w/ Dr. Stapleton at time of admission. History of Present Illness Primary Care Provider: Piedad Cronin MD This is an 79 year old female with past medical history of CHF, CKD, T2DM, pulmonary hypertension who presented to the ED on 01/09/2025 with shortness of breath. The patient was seen & examined this morning with her family at bedside. The patient reports that she started to become short of breath yesterday but then felt okay yesterday evening. She states she woke up this morning with severe shortness of breath. She did not take any of her AM medications including her insulin or eat breakfast. She reports no chest pain or cough. She denies any abdominal pain, nausea, or vomiting. She denies any changes to bowel movements or urination. She denies any abdominal distention. She denies any dizziness. She reports she feels about the same at time of admission compared to her initial ED presentation. She had just gotten her dose of IV Lasix prior to my encounter & has had no urine output thus far. While in the ED, she was found to be hypoxic on arrival in the low 80s & was placed on BiPAP w/ improvement to O2 of 98%. EKG without signs of ischemia. Her CXR was read as CHF w/ small pleural effusions and chest CTA was negative for PE or pneumonia. CBC was consistent with anemia which is within her baseline. No leukocytosis. PT/INR stable. VBGs w/ pH 7.27, pCO2 58, pO2 25, HCO3 27. CMP w/ mild hyponatremia of 133, creatinine mildly elevated at 1.29, BG elevated at 328, Lactate WNL. Mag WNL. LFTs WNL. Trop elevated at 82.2 and BNP elevated at 1590. Procal negative. Respiratory biofire negative. Blood cultures are pending. Code discussion did take place and she does confirm that she is a full code. Allergies Allergy/AdvReac Type Severity Reaction Status Date / Time lisinopril Allergy Intermediate Cough Verified 01/01/25 15:54 isosorbide AdvReac Headache Verified 01/01/25 15:54 Home Medications Medication Instructions Recorded Confirmed Type anastrozole 1 mg tablet 1 mg PO QAM 11/08/18 01/09/25 History coenzyme Q10 200 mg capsule 200 mg PO QAM 01/06/20 01/09/25 History vit C 250 mg-vit E 90 mg-zinc 40 1 tab PO BID 09/26/21 01/09/25 History mg-copper 1 ou-ripwmn-hcdynr capsule (PreserVision AREDS-2) Spacer for Inhaler #1 ea 09/27/21 01/01/25 Rx prevagen 1 tab PO DAILY 05/29/22 01/09/25 History insulin NPH isoph U-100 human 100 See Rx Instructions subcut 05/23/23 01/09/25 Rx unit/mL (3 mL) subcutaneous pen .COMPLEX 90 days #90 mL (Novolin N FlexPen) pen needle, diabetic 32 gauge x #400 ea 05/23/23 01/01/25 Rx 5/32" (BD Ultra-Fine Suzette Pen Needle) ipratropium 0.5 mg-albuterol 3 mg 3 ml inhalation Q4H PRN wheezing 07/10/23 01/09/25 Rx (2.5 mg base)/3 mL nebulization #180 mL soln nebulizer and compressor #1 ea 07/10/23 01/01/25 Rx budesonide 0.5 mg/2 mL suspension 0.5 mg (2 mL) inhalation BID #60 mL 07/30/23 01/09/25 Rx for nebulization cyanocobalamin (vitamin B-12) 1,000 mcg PO .3XWK 12/19/23 01/09/25 History 2,500 mcg tablet nitroglycerin 0.4 mg sublingual 0.4 mg sublingual Q5M PRN chest 01/08/24 01/09/25 Rx tablet (Nitrostat) pain #25 tabs albuterol sulfate 90 mcg/actuation 2 puff inhalation Q6H PRN Wheezing 01/17/24 01/09/25 Rx aerosol inhaler #18 grams clopidogrel 75 mg tablet 75 mg PO DAILY #90 tabs 05/28/24 01/09/25 Rx choline [id number] 1 tab PO QAM 05/31/24 01/09/25 History empagliflozin 10 mg tablet 10 mg PO DAILY #30 tabs 06/20/24 01/09/25 Rx (Jardiance) primidone 50 mg tablet (Mysoline) See Rx Instructions PO .COMPLEX 06/20/24 01/09/25 History furosemide 40 mg tablet 20 mg (1/2 x 40 mg) PO QAM #90 tabs 07/10/24 01/09/25 Rx metoprolol succinate 200 mg 200 mg PO QAM #90 tabs 08/22/24 01/09/25 Rx tablet,extended release 24 hr insulin regular human 100 unit/mL 31 unit subcut BID 09/05/24 01/09/25 History (3 mL) subcutaneous pen (Novolin R FlexPen) carbidopa 25 mg-levodopa 100 mg 1 tab PO TID #90 tabs 10/30/24 01/09/25 Rx tablet metformin 500 mg tablet 500 mg PO BIDWMEAL 90 days #180 12/16/24 01/09/25 Rx tabs blood sugar diagnostic (True #300 ea 12/30/24 01/01/25 Rx Metrix Glucose Test Strip) blood-glucose meter (True Metrix #1 ea 12/30/24 01/01/25 Rx Glucose Meter) lancets 33 gauge (TRUEplus Lancets) #300 ea 12/30/24 01/01/25 Rx blood-glucose sensor (Dexcom G7 #1 ea 01/01/25 01/01/25 Rx Sensor device) losartan 50 mg tablet 50 mg PO DAILY #90 tabs 01/02/25 01/09/25 Rx atorvastatin 80 mg tablet 80 mg PO QPM #90 tabs 01/05/25 01/09/25 Rx alendronate 70 mg tablet 70 mg PO WK 01/09/25 01/09/25 History Past Med/Surg History Problem List (Updated 01/09/25 @ 09:32 by Chai Brito M.D.) Pleural effusion (Acute) CHF (congestive heart failure) (Acute) Acute respiratory failure with hypoxia and hypercarbia (Acute) CKD stage 3b, GFR 30-44 ml/min Normocytic anemia Type 2 diabetes mellitus with retinopathy of both eyes, with long-term current use of insulin Hyperlipidemia Hypertension 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 Mitral regurgitation Pulmonary hypertension Cardiomyopathy Overweight (BMI 25.0-29.9) Sensorineural hearing loss of both ears Diabetic nephropathy associated with type 2 diabetes mellitus Glenohumeral arthritis CAD (coronary artery disease) (Chronic) Osteopenia (Acute) Depression (Chronic) Breast cancer (Chronic 07/2017) left breast infiltrating ductal CA dx 07/2017 (ER+/NC+, Her 2 -) and right breast invasive ductal CA dx 11/2017 (ER+/NC+, Her 2 +), s/p elective B/L mastectomy with right axillary dissection (0/7 nodes +), on Arimedex since Jan 2018 Medical History (Updated 01/09/25 @ 09:32 by Chai Brito M.D.) Solitary pulmonary nodule stable, seen by pulm, no further follow up recommended Internal hemorrhoid Seborrheic keratoses NSTEMI (non-ST elevated myocardial infarction) Myocardial Infarction 2009 History of COVID-19 01/2021>MILD SYMPTOMS *RESOLVED Surgical History (Updated 01/06/25 @ 11:56 by Piedad Cronin MD) H/O bilateral mastectomy SURGERY ONLY>(NO LIMB RESTRICTION) NO RECONSTRUCTION H/O lumpectomy LEFT X 2 History of tooth extraction History of surgery Right Axillary Dissection, Bilateral Breast Scar Revision - 12/2017 [facility] History of colonoscopy History of trigger finger right thumb release History of open reduction and internal fixation (ORIF) procedure RT ANKLE History of cataract surgery RT/LEFT History of cardiac cath STENTS 06/2010 IN [facility] (DIAG AND CX), 1 STENT 04/2011, AND 1 STENT 2013 [place] [facility] History of coronary artery bypass graft 3 VESSELS-2010 AT [facility] *FOLLOWS WITH DR. HAMMER Family History Sister Breast cancer Father Alcoholism Mother Heart disease Uncle Heart disease Daughter Family history of diabetes mellitus Other No family history of adverse response to anesthesia Denies family history of Ovarian cancer Prostate cancer Myocardial infarction Colorectal cancer Social History Smoking Status: Former smoker Tobacco Type: Cigarettes Age Started Using Tobacco: 13; Age Quit Using Tobacco: 43; packs per day: 0.75; Smoking End Date: 1979; Second Hand Exposure: No; Do You Dip or Chew Tobacco: No; Hx Alcohol Use: No Hx Substance Use: No Preferred Language: Ukrainian Communication Ability: Effective Visual Impairment: No Limitations Hearing Ability: Normal Spinning Frame Fixer Required: No Beliefs That Will Affect Care: None and Jew marital status: Current Living Situation: Spouse Current Living Situation Comment: single story house current occupational status: retired current occupation: Retired Other Information That Helps Us Care for You: No Feels Safe at Home: Yes Safety Concerns: Feels Safe At This Time Childhood Exposure to Second-Hand Smoke: Yes Diet: regular caffeine: Yes Dental Care, Regularly: No Physical Activity Frequency: Does not Exercise Seatbelt Use: always Sunscreen Use: Yes Assistive Devices: None Physical Exam Physical Exam: General: NAD, VS: BP 135/75; P68; R12; T36.2 Resp: normal respiratory effort, lung sounds diminished throughout. CV: RRR, + murmur Abd: normal bowel sounds, non tender to palpation. firm, appears distended but per pt feels normal for her. Extremities: no edema Neuro: A&O x3 Skin: intact Results & Data Results & Data Vital Signs (Past 12 Hours) Vital Signs Temp Pulse Resp BP Pulse Ox O2 Del Method FiO2 01/09/25 09:48 68 21 100 BiPAP 01/09/25 09:38 148/89 H 01/09/25 09:27 92 H 22 97 BiPAP 01/09/25 09:03 71 27 H 98 BiPAP 01/09/25 09:01 150/39 H 01/09/25 08:56 100 BiPAP 01/09/25 08:56 100 BiPAP 01/09/25 08:48 76 25 H 97 BiPAP 01/09/25 08:45 76 28 H 98 30 01/09/25 08:40 76 01/09/25 08:38 BiPAP 01/09/25 08:38 36.4 C L 74 27 H 174/92 H 97 BiPAP Code Status & VTE Plan VTE Prophylaxis Plan VTE Prophylaxis will be ordered: Yes Supervising Physician Co-Signing Physician Notes The patient was seen by me. The chart was reviewed. Case discussed with VICTORINO Bergman. Agree with assessment and plan PG Care Time/CCT Total # of Minutes Spent Total Time Spent with Patient: Total time spent is greater than 50% in coordination of care (as documented) at patient's floor/unit and/or counseling patient: Coding Level of Care Code 74249 INT INP/OBS CARE 3/75MIN Diagnoses Acute respiratory failure with hypoxia and hypercarbia J96.01; J96.02 CHF (congestive heart failure) I50.9 Type 2 diabetes mellitus with retinopathy of both eyes, with long-term current use of insulin E11.319; Z79.4 CKD stage 3b, GFR 30-44 ml/min N18.32
[2025-01-09] MEDS ORDERED: DEXTROSE 50% 50 ML SYRINGE IV PRN (11:15)
[2025-01-09] MEDS ORDERED: GLUCOSE 10 TAB/TUBE PO PRN (11:15)
[2025-01-09] MEDS ORDERED: GLUCOSE 40% GEL 15 GM TUBE PO PRN (11:15)
[2025-01-09] MEDS ORDERED: GLUCAGON FOR INJ 1 MG VIAL SQ PRN (11:15)
[2025-01-09] MEDS ORDERED: NON-FORMULARY MEDICATION (Insulin Nph Isoph U-100 Human [Novolin N Flexpen] 100 unit/mL (3 SQ SCH (12:24)
--- NOTE | 2025-01-09 12:52 | Ultrasound Report ---
US abdomen limited HISTORY: hx cirrhosis on imaging, eval for ascites. COMPARISON: 05/25/2024 FINDINGS: 4 quadrants of the abdomen were examined with ultrasound. No ascites seen. IMPRESSION: No ascites. ACT 112: Negative or not required by law. Electronically signed by: Joshua Singh M.D. 01/09/2025 12:51 PM
[2025-01-09] MEDS: INSULIN ASPART PER UNIT CHARGE SC SCH (13:27)
[2025-01-09] MEDS: LANTUS PER UNIT CHARGE SC ONE (13:27)
[2025-01-09] MEDS: CARBIDOPA/LEVODOPA 25/100MG TAB PO SCH (13:35)
[2025-01-09] MEDS: LEVALBUTEROL HCL 0.63 MG/3 ML NEB NEB PRN (13:44)
--- NOTE | 2025-01-09 14:27 | Pharmacy Report ---
Pharmacy Glycemic Short Note 2 - Date of Service January 09, 2025 - Glycemic Short BSG Results (Last 24 hours): 01/09/25 01/09/25 01/09/25 08:46 08:54 12:33 Glucose 328 H* POC Glucose 334 H* POC Glucose (other) 316 H 01/09/25 12:35 Glucose POC Glucose 340 H* POC Glucose (other) OUTPATIENT ANTIDIABETIC REGIMEN: * jardiance 10 mg once daily, NPH 48 units Qam and 44 units Qpm, Novolin R 31 units bidm, metformin 500 mg bid ASSESSMENT: * 79 year old admitted with respiratory distress. Type 2 diabetic, BSGs >300 on admission. Pharmacy consulted for glycemic management. Will utilize Lantus and give 40 units x 1 now with scale on for HS. PLAN FOR INPATIENT GLYCEMIC CONTROL: * Hold outpatient oral diabetes medications * Basal insulin * Lantus 40 units x 1 now * Lantus 20-40 units HS * Bolus insulin * NovoLog per scale ACHS or Q6hrs while NPO * Goal Range: Low 110 mg/dL - High 160 mg/dL * Correction Factor: 15 mg/dL/unit * Nutritional / Prandial insulin per carb ratio of 1 unit per 5 grams CHO consumed
[2025-01-09 14:52] LABS: Appearance Urine Clear (Clear); Bacteria Urine Automated 4+ (None Seen); Cast Urine Automated 0-2 /lpf (0-2); Epithelial Cell Urine Auto 0-2 /hpf (0-2); Glucose Urine UA 3+ (Negative); WBC Urine Automated 21-50 /hpf (0-5)
[2025-01-09] MEDS: ACETAMINOPHEN 325 MG TAB PO PRN (15:42)
[2025-01-09] MEDS: FUROSEMIDE 40 MG/4 ML VIAL IV SCH (17:31)
[2025-01-09] MEDS: ATORVASTATIN 40 MG TAB PO SCH (20:42)
[2025-01-09] MEDS: LANTUS PER UNIT CHARGE SC SCH (20:42)
[2025-01-09] MEDS: PRIMIDONE 50 MG TAB PO SCH (20:42)
[2025-01-09] MEDS: HEPARIN SOD 5,000 UNIT/0.5 ML VIAL SQ SCH (20:42)
[2025-01-10] MEDS: INSULIN ASPART PER UNIT CHARGE SC SCH (00:12)
[2025-01-10] MEDS: CARBOHYDRATES FOR HYPOGLYCEMIA PO PRN (02:57)
[2025-01-10] MEDS: MELATONIN 3 MG TAB PO PRN (03:10)
[2025-01-10 06:24] LABS: Hematocrit (blood only) 31.4 % (37.0-47.0); Hemoglobin 10.1 g/dl (12.0-16.0); Mean Corpuscular Hemoglobin 28.5 pg (25.0-34.0); Mean Corpuscular Volume 88.5 fL (80.0-100.0); Platelet Count 198 K/uL (130-400); RDW Standard Deviation 46.8 fL (36.4-46.3); Red Blood Count 3.55 M/uL (4.20-5.40); White Blood Count 6.35 K/ul (4.8-10.8)
[2025-01-10 06:51] LABS: Anion Gap 10.0 (3-11); Blood Urea Nitrogen 33.0 mg/dl (6-23); Calcium 9.2 mg/dl (8.6-10.3); Carbon Dioxide 24.0 mmol/L (21-32); Chloride 100.0 mmol/L (98-107); Creatinine Clr Calc Pharmacy 25.7 ml/min; Glucose 143.0 mg/dl (70-99(Fasting)); Potassium 4.2 mmol/L (3.5-5.1); Sodium 134.0 mmol/L (136-145)
[2025-01-10] MEDS: CLOPIDOGREL BISULFATE 75 MG TAB PO SCH (08:12)
[2025-01-10] MEDS: ANASTROZOLE 1 MG TAB PO SCH (08:12)
[2025-01-10] MEDS: CEROVITE ADV FORMULA TAB PO SCH (08:12)
[2025-01-10] MEDS: METOPROLOL SUCC 50MG EXT REL TAB PO SCH (08:13)
[2025-01-10] MEDS: PRIMIDONE 50 MG TAB PO SCH (08:13)
[2025-01-10] MEDS: LOSARTAN POTASSIUM 50 MG TAB PO SCH (08:13)
[2025-01-10] MEDS: LANTUS PER UNIT CHARGE SC SCH (08:18)
--- NOTE | 2025-01-10 09:04 | XRay Report ---
SINGLE VIEW CHEST CLINICAL HISTORY: Congestive heart failure. FINDINGS: An AP, portable, upright chest radiograph is compared to chest x-ray and chest CT dated . The patient is status post midline sternotomy. The most superior sternotomy wire is fracture d. The heart is enlarged noting atherosclerotic calcification of the thoracic aorta. Pulmonary vascul ar congestion is improved from yesterday. There are splenic pleural effusions with dependent atelecta sis. No pneumothorax is seen. The skeletal structures are osteopenic. The bony thorax is grossly inta ct. Arthritic change is seen in the shoulders. IMPRESSION: 1. Cardiomegaly with evidence of congestive failure. Congestive change has improved from yesterday. 2. Layering pleural effusions with dependent atelectasis. ACT 112: Negative or not required by law. Electronically signed by: Hira Callejas M.D. 01/10/2025 9:03 AM
[2025-01-10] MEDS: FUROSEMIDE 40 MG/4 ML VIAL IV ONE (10:11)
--- NOTE | 2025-01-10 12:49 | Hospitalist Progress Note ---
Date of Service January 10, 2025 Assessment & Plan (1) Acute respiratory failure with hypoxia and hypercarbia: (2) CHF (congestive heart failure): (3) Type 2 diabetes mellitus with retinopathy of both eyes, with long-term current use of insulin: (4) CKD stage 3b, GFR 30-44 ml/min: (5) UTI (urinary tract infection): Plan This is an 79 year old female with past medical history of CHF, CKD, T2DM, pulmonary hypertension who presented to the ED on 01/09/2025 with shortness of breath. #Acute exacerbation of CHF Follows w/ CHF clinic in outpatient --> on Lasix 20mg PO daily outpatient & is compliant. On Jardiance which can be held inpatient. CXR: consistent with CHF; repeat CXR 01/10 showing improvement in CHF Chest CTA: negative for PE/pneumonia. Also consistent w/ CHF BNP elevated at 1590 on admission & now down-trending 1066 Trop downtrended to 74.4; EKG w/o ischemic signs. VBGs: pH 7.27; pCO2 58; pO2 25; HCO3 27 s/p IV Lasix 40mg IV x 3. Weight down to 155lb which is about her baseline. Repeat echo pending. Most recent Echo 12/05/2024: EF 40-45%; mild-mod MR #UTI UA + for UTI UC + for E. Coli Rocephin given 01/10, can transition to Keflex on discharge. #Type 2 DM BG elevated at 328 on admission, elevation secondary to missing AM dose of insulin. A1c 05/2024: 8.3% --> repeat in AM on Metformin + NPH insulin + regular human insulin outpatient. Novolog w/ SSI Will consult pharmacy to aide in glycemic management #Cirrhosis ? CTAP from 05/2024 findings consistent w/ cirrhosis. LFTs WNL, plt count stable. PT/INR stable. US neg for ascites. Recommend outpatient follow up w/ PCP and possible GI referral for liver work up. #CAD recent heart cath 06/03/2024 w/ prior LAD stent occlusion, severe CAD involving cicumflex system. Medical therapy recommended by interventional cardiology hx of Gastric ulcer/black stools --> on monotherapy w/ Plavix. Continue statin #HTN Continue Losartan + Metoprolol succinate Continue to monitor #CKD stage 3 Creatinine baseline: 1.2-1.4 - slight increase to 1.58 Na improvement to 134 K/mag stable. #Tremor - Carbidopa-levodopa TID + DVT prophylaxis: Lovenox Code: full Updated at bedside 01/10 Anticipate discharge home 01/11 Admission and Anticipated Discharge Date Admission Date: January 09, 2025 Supervising Physician Co-Signing Physician Notes The patient was not seen by me. The chart was reviewed. Case discussed with VICTORINO Bergman. Agree with assessment and plan Subjective William was seen & examined with her at bedside. She reports she is feeling better today. States this morning she was SOB but was tolerating room air & she was given oxygen for comfort. At time of encounter, she felt she could take it off. Discussed w/ nursing. She denies any CP. She states her dry weight at home recently has been between 152-155. Physical Exam Physical Exam: General: NAD, VS: BP 106/62; P70; R18; T36.4C Resp: normal respiratory effort, lungs clear to auscultation & diminished @ bases CV: RRR, + murmur Extremities: Moves all extremities, no edema Neuro: A&O x3 Skin: intact, no lesions noted Results & Data Results & Data Vital Signs (Past 12 Hours) Vital Signs Temp Pulse Resp BP Pulse Ox O2 Del Method O2 Flow Rate 01/10/25 11:43 36.4 C L 70 18 106/62 98 Room Air 01/10/25 10:21 67 16 99 Nasal Cannula 1 01/10/25 07:47 36.4 C L 85 20 142/73 H 95 Room Air 01/10/25 07:35 Room Air 01/10/25 07:35 Nasal Cannula 2 01/10/25 06:05 94 Room Air 01/10/25 02:47 36.6 C 86 18 126/74 98 Nasal Cannula 2 PG Care Time/CCT Total # of Minutes Spent Total Time Spent with Patient: Total time spent is greater than 50% in coordination of care (as documented) at patient's floor/unit and/or counseling patient: Coding Level of Care Code 01875 SUB INP/OBS CARE 3/50MIN Diagnoses Acute respiratory failure with hypoxia and hypercarbia J96.01; J96.02 CHF (congestive heart failure) I50.9 Type 2 diabetes mellitus with retinopathy of both eyes, with long-term current use of insulin E11.319; Z79.4 CKD stage 3b, GFR 30-44 ml/min N18.32 UTI (urinary tract infection) N39.0
[2025-01-10] MEDS: cefTRIAXone SODIUM 2,000 MG/50 ML BAG IV SCH (15:22)
--- NOTE | 2025-01-10 16:16 | XCELERA ---
[id number]
[2025-01-11 07:19] LABS: Hematocrit (blood only) 31.7 % (37.0-47.0); Hemoglobin 10.4 g/dl (12.0-16.0); Mean Corpuscular Hemoglobin 28.7 pg (25.0-34.0); Mean Corpuscular Volume 87.6 fL (80.0-100.0); Platelet Count 219 K/uL (130-400); RDW Standard Deviation 47.0 fL (36.4-46.3); Red Blood Count 3.62 M/uL (4.20-5.40); White Blood Count 5.63 K/ul (4.8-10.8)
[2025-01-11 07:37] LABS: Anion Gap 9.0 (3-11); Blood Urea Nitrogen 33.0 mg/dl (6-23); Calcium 9.2 mg/dl (8.6-10.3); Carbon Dioxide 27.0 mmol/L (21-32); Chloride 99.0 mmol/L (98-107); Creatinine Clr Calc Pharmacy 26.5 ml/min; Glucose 71.0 mg/dl (70-99(Fasting)); Potassium 4.4 mmol/L (3.5-5.1); Sodium 135.0 mmol/L (136-145)
[2025-01-11] MEDS: LANTUS PER UNIT CHARGE SC SCH (08:13)
[2025-01-11 09:04] LABS: Hemoglobin A1C 10.2 % (4.5-5.6)
[2025-01-11] MEDS: FUROSEMIDE 20 MG TAB PO SCH (10:27)
--- NOTE | 2025-01-11 11:03 | Hospitalist Progress Note ---
Date of Service January 11, 2025 Assessment & Plan (1) Acute respiratory failure with hypoxia and hypercarbia: (2) CHF (congestive heart failure): (3) Type 2 diabetes mellitus with retinopathy of both eyes, with long-term current use of insulin: (4) CKD stage 3b, GFR 30-44 ml/min: (5) UTI (urinary tract infection): Plan This is an 79 year old female with past medical history of CHF, CKD, T2DM, pulmonary hypertension who presented to the ED on 01/09/2025 with shortness of breath. #Acute exacerbation of CHF Follows w/ CHF clinic in outpatient --> on Lasix 20mg PO daily outpatient & is compliant. On Jardiance which can be held inpatient. CXR: consistent with CHF; repeat CXR 01/10 showing improvement in CHF Chest CTA: negative for PE/pneumonia. Also consistent w/ CHF BNP elevated at 1590 on admission & now down-trending 1066 Trop downtrended to 74.4; EKG w/o ischemic signs. VBGs: pH 7.27; pCO2 58; pO2 25; HCO3 27 s/p IV Lasix 40mg IV x 3. Weight down to 155lb which is about her baseline. Resumed regular 20mg PO dosing of Lasix 01/11 ---> discussed w/ pt about daily weights and additional prn doses if gained > 2lbs in 1 day or > 4lbs in 1 week which she was agreeable to. Repeat echo pending. Most recent Echo 12/05/2024: EF 40-45%; mild-mod MR #UTI UA + for UTI UC + for de oliveira sensitive E. Coli Continue IV Rocephin #Type 2 DM BG elevated at 328 on admission, elevation secondary to missing AM dose of insulin. A1c increased to 10.2% on Metformin + NPH insulin + regular human insulin outpatient. Novolog w/ SSI Will consult pharmacy to aide in glycemic management Rec close follow up with endocrinology outpatient. #Cirrhosis ? CTAP from 05/2024 findings consistent w/ cirrhosis. LFTs WNL, plt count stable. PT/INR stable. US neg for ascites. Recommend outpatient follow up w/ PCP and possible GI referral for liver work up. #CAD recent heart cath 06/03/2024 w/ prior LAD stent occlusion, severe CAD involving cicumflex system. Medical therapy recommended by interventional cardiology hx of Gastric ulcer/black stools --> on monotherapy w/ Plavix. Continue statin #HTN Continue Losartan + Metoprolol succinate Continue to monitor #CKD stage 3 Creatinine baseline: 1.2-1.4 - slight drop to 1.53 Na improvement to 135 K/mag stable. #Tremor - Carbidopa-levodopa TID DVT prophylaxis: Lovenox Code: full Anticipate discharge home 01/12 Admission and Anticipated Discharge Date Admission Date: January 09, 2025 Supervising Physician Co-Signing Physician Notes The patient was not seen by me. The chart was reviewed. Case discussed with VICTORINO Bergman. Agree with assessment and plan Subjective William was seen & examined this morning. She reports she is feeling okay today. She reports she had a brief episode of SOB this AM and was placed on oxygen for a brief period of time. She would feel more comfortable returning home tomorrow. Physical Exam Physical Exam: General: NAD, VS: BP 121/76; P59; R18; T36.3C Resp: normal respiratory effort, lungs clear to auscultation, diminished at bases b/l CV: RRR, + murmur, Extremities: no edema Neuro: A&O x3 Skin: intact, no lesions noted Results & Data Results & Data Vital Signs (Past 12 Hours) Vital Signs Temp Pulse Resp BP Pulse Ox O2 Del Method 01/11/25 08:15 36.6 C 70 20 128/82 100 Room Air 01/11/25 06:55 Room Air 01/11/25 02:54 36.5 C 64 16 125/77 97 Room Air PG Care Time/CCT Total # of Minutes Spent Total Time Spent with Patient: Total time spent is greater than 50% in coordination of care (as documented) at patient's floor/unit and/or counseling patient: Coding Level of Care Code 54781 SUB INP/OBS CARE 2/35MIN Diagnoses Acute respiratory failure with hypoxia and hypercarbia J96.01; J96.02 CHF (congestive heart failure) I50.9 Type 2 diabetes mellitus with retinopathy of both eyes, with long-term current use of insulin E11.319; Z79.4 CKD stage 3b, GFR 30-44 ml/min N18.32 UTI (urinary tract infection) N39.0
--- NOTE | 2025-01-11 13:57 | Pharmacy Report ---
Pharmacy Glycemic Short Note 2 - Date of Service January 11, 2025 - Glycemic Short BSG Results (Last 24 hours): 01/10/25 01/10/25 01/11/25 16:13 20:19 05:51 Glucose 71 POC Glucose 142 H 195 H 01/11/25 01/11/25 07:35 11:22 Glucose POC Glucose 101 H 166 H OUTPATIENT ANTIDIABETIC REGIMEN: * jardiance 10 mg once daily, NPH 48 units Qam and 44 units Qpm, Novolin R 31 units bidm, metformin 500 mg bid ASSESSMENT: 01/11 * Patient received total of 76 units of insulin yesterday, of which 50 units were basal insulin * Fasting BSG 101 mg/dL, 71 mg/dL on AM lab draw - will scale back on basal for today 01/09 * 79 year old admitted with respiratory distress. Type 2 diabetic, BSGs >300 on admission. Pharmacy consulted for glycemic management. Will utilize Lantus and give 40 units x 1 now with scale on for HS. PLAN FOR INPATIENT GLYCEMIC CONTROL: * Hold outpatient oral diabetes medications * Basal insulin * Lantus 20 units daily in AM * Lantus 10-20 units HS * Bolus insulin * NovoLog per scale ACHS or Q6hrs while NPO * Goal Range: Low 110 mg/dL - High 160 mg/dL * Correction Factor: 15 mg/dL/unit * Nutritional / Prandial insulin per carb ratio of 1 unit per 5 grams CHO consumed
--- NOTE | 2025-01-11 23:18 | Electrocardiogram Report ---
Test Reason : Blood Pressure : */* mmHG Vent. Rate : 76 BPM Atrial Rate : 76 BPM P-R Int : 144 ms QRS Dur : 94 ms QT Int : 410 ms P-R-T Axes : 52 5 124 degrees QTcB Int : 461 ms Normal sinus rhythm Possible Left atrial enlargement Septal infarct (cited on or before 31-May-2024) Abnormal ECG When compared with ECG of 09-Jun-2024 09:47, QRS axis Shifted right Confirmed by Alfredo August ([id number]) on 01/11/2025 11:18:30 PM Referred By: REFERRED SELF Confirmed By: Alfredo August
[2025-01-12 07:02] LABS: Anion Gap 8.0 (3-11); Blood Urea Nitrogen 31.0 mg/dl (6-23); Calcium 9.0 mg/dl (8.6-10.3); Carbon Dioxide 27.0 mmol/L (21-32); Chloride 97.0 mmol/L (98-107); Creatinine Clr Calc Pharmacy 25.5 ml/min; Glucose 100.0 mg/dl (70-99(Fasting)); Potassium 4.5 mmol/L (3.5-5.1); Sodium 132.0 mmol/L (136-145)
[2025-01-12] MEDS: LANTUS PER UNIT CHARGE SC SCH (08:34)
--- NOTE | 2025-01-12 14:17 | XRay Report ---
SINGLE VIEW CHEST CLINICAL HISTORY: Congestive heart failure. FINDINGS: An AP, portable, upright chest radiograph is chest x-ray dated 01/10/2025 and correlated wi th chest CT dated 01/09/2025. The examination is degraded by portable technique and apical lordotic p ositioning. The patient is status post midline sternotomy. The most superior sternotomy wire is fract ured. The heart is enlarged noting atherosclerotic calcification of the thoracic aorta. There is pulm onary vascular congestion. There are small pleural effusions with dependent atelectasis. No pneumoth orax is seen. The skeletal structures are osteopenic. The bony thorax is grossly intact. Arthritic ch candace is seen in the shoulders. IMPRESSION: 1. Cardiomegaly with evidence of congestive failure. This is similar to previous. 2. Layering pleural effusions with dependent atelectasis. ACT 112: Negative or not required by law. Electronically signed by: Hira Callejas M.D. 01/12/2025 2:15 PM
--- NOTE | 2025-01-12 15:00 | Pharmacy Report ---
Pharmacy Glycemic Short Note 2 - Date of Service January 12, 2025 - Glycemic Short BSG Results (Last 24 hours): 01/11/25 01/11/25 01/12/25 16:23 20:31 03:38 Glucose POC Glucose 109 H 83 90 01/12/25 01/12/25 01/12/25 05:52 07:22 11:30 Glucose 100 H POC Glucose 106 H 116 H OUTPATIENT ANTIDIABETIC REGIMEN: * jardiance 10 mg once daily, NPH 48 units Qam and 44 units Qpm, Novolin R 31 units bidm, metformin 500 mg bid ASSESSMENT: 01/12 * William received only 49 units of insulin yesterday (30 units were basal and 19 units were bolus). Despite the decrease in insulin, most of her BSGs were below goal yesterday. * Fasting BSG was 106mg/dL this morning. AM Lantus was decreased by 50% and the PM Lantus scale was changed so she would only receive a dose if her BSG is greater than 160mg/dL. * Carb ratio was also loosened to prevent further hypoglycemia. 01/11 * Patient received total of 76 units of insulin yesterday, of which 50 units were basal insulin * Fasting BSG 101 mg/dL, 71 mg/dL on AM lab draw - will scale back on basal for today 01/09 * 79 year old admitted with respiratory distress. Type 2 diabetic, BSGs >300 on admission. Pharmacy consulted for glycemic management. Will utilize Lantus and give 40 units x 1 now with scale on for HS. PLAN FOR INPATIENT GLYCEMIC CONTROL: * Hold outpatient oral medications * Basal insulin * Lantus 10 units daily in AM * Lantus scale (0,10, or 20 units depending on BSG) HS * Bolus insulin * NovoLog per scale ACHS or Q6hrs while NPO * Goal Range: Low 110 mg/dL - High 160 mg/dL * Correction Factor: 15 mg/dL/unit * Nutritional / Prandial insulin per carb ratio of 1 unit per 8 grams CHO consumed
--- NOTE | 2025-01-12 16:03 | Hospitalist Progress Note ---
Date of Service January 12, 2025 Assessment & Plan (1) Acute respiratory failure with hypoxia and hypercarbia: (2) CHF (congestive heart failure): (3) Type 2 diabetes mellitus with retinopathy of both eyes, with long-term current use of insulin: (4) CKD stage 3b, GFR 30-44 ml/min: (5) UTI (urinary tract infection): Plan This is an 79 year old female with past medical history of CHF, CKD, T2DM, pulmonary hypertension who presented to the ED on 01/09/2025 with shortness of breath. #Acute exacerbation of CHF Follows w/ CHF clinic in outpatient --> on Lasix 20mg PO daily outpatient & is compliant. On Jardiance which can be held inpatient. Recommend holding Jardiance upon discharge (in the setting of UTI) CXR: consistent with CHF; repeat CXR 01/10 and 01/12 showing improvement in CHF Chest CTA: negative for PE/pneumonia. Also consistent w/ CHF BNP trend: 1590 -> 1066 -> 1059 s/p IV Lasix 40mg IV x 3. Weight down to 155lb which is about her baseline. Echocardiogram on 01/10 revealed EF of 40% with mild to moderate global hypokinesis of the left ventricle Patient is currently optimized with medical management: On Jardiance, metoprolol, losartan Spironolactone deferred in the past due to history of hyperkalemia Entresto unaffordable Trop trend 82->74 on arrival; EKG without ischemic changes However, patient reported episode of severe SOB after walking on 01/11; labored breathing for approximately 15 minutes "I didn't think I would make it back to my bed" "I felt like I was going to " Per review of prior cardiac history, she has a known history of severe CAD Cardiac catheterization 06/03/2024: "Severe multivessel CAD noted... with prior LAD stent now occluded and also severe CAD involving the circumflex system" Allergy to Imdur Cardiology consult appreciated, as patient may benefit from PCI of the circumflex artery if this is truly angina manifesting as SOB N.p.o. at midnight Continue Lasix 20 mg p.o. daily, as feel that patient's HF has been improving, and she is still diuresing and reporting increased urinary output Discussed w/ pt about daily weights and additional PRN doses if gained > 2lbs in 1 day or > 4lbs in 1 week which she was agreeable to. #Asymptomatic bacteriuria UA + for UTI Clinically, patient denies any urinary symptoms (no burning with urination, suprapubic tenderness, or lower back pain) UC + for de oliveira sensitive E. Coli IV Rocephin 2000 mg x 3 days #Type 2 DM BG elevated at 328 on admission, elevation secondary to missing AM dose of insulin. A1c increased to 10.2% on Metformin + NPH insulin + regular human insulin outpatient. Novolog w/ SSI Will consult pharmacy to aide in glycemic management Rec close follow up with endocrinology outpatient. #Cirrhosis ? CTAP from 05/2024 findings consistent w/ cirrhosis. LFTs WNL, plt count stable. PT/INR stable. US neg for ascites. Recommend outpatient follow up w/ PCP and possible GI referral for liver work up. #CAD Continue medical therapy as recommended by interventional cardiology Hx of Gastric ulcer/black stools --> on monotherapy w/ Plavix. Continue statin #HTN Continue Losartan + Metoprolol succinate Continue to monitor #CKD stage 3 Creatinine baseline: 1.2-1.4 - slight drop to 1.53 Na improvement to 135 K/mag stable. #Tremor - Carbidopa-levodopa TID DVT prophylaxis: Lovenox Condition: Continued stay as patient may require PCI Admission and Anticipated Discharge Date Admission Date: January 09, 2025 Supervising Physician Co-Signing Physician Notes The patient was seen but not examined. The chart was reviewed. I verified all [place] points and agree with Erick Jaffe PA-C with the following exceptions and/or additions: Ongoing shortness of breath concerning possibly for angina equivalent with known circumflex blockage, will ask cardiology to review patient. Continues to diurese well even off the SGLT and on low dose 20mg PO lasix Subjective Mrs. Xie is doing well this morning. However, she reports difficulty sleeping last night. She sat up in her recliner chair most of the night, but could not get the bed. She does endorse orthopnea, and reports that she begins to feel short of breath whenever the bed is less than around 60 degrees. She also reports SOB at rest; which is different from her baseline. She was walking in the halls yesterday when she became incredibly winded. She reports she "did not think she would make it back to [her] bed", and "thought [she] was going to ". The shortness of breath lasted for approximately 15 minutes before subsiding. Patient reports she lives in a ranch home with her . While it is largely 1 floor, she does have 14 steps to the basement which she needs to use to get to her car as well as a laundry machine. Patient does have a walker and a cane at home, but does not use them at baseline. Patient is not on supplemental oxygen at baseline or CPAP at night. She denies any urinary symptoms this time (no burning with nation or lower back pain). She does endorse drinking 4 to 5 cups of water daily, and reports she has been told not to do this in the past. Patient does report she has an allergy to Imdur, but is unsure what happens when she takes this medication. ROS: Patient endorses SOB at rest, ESPINO, orthopnea, and increased urinary frequency (which she attributes to the Lasix). Patient denies fever, chest pain, cough (resolved), pleuritic CP, abdominal pain, nausea, vomiting, diarrhea, burning with urination, or lower extremity pain/swelling. Review of Systems Review of Systems: See HPI above Physical Exam Physical Exam: General: no acute distress; pleasant affect; non-toxic appearing; cooperative; SpO2 98% on RA HEENT: normocephalic, atraumatic; PERRLA; vision and hearing intact Neck: supple; trachea midline Skin: warm, dry without signs of tenting; no cyanosis; no rashes, bruising, lesions, or erythema noted CV: chest wall NTP; RRR; S1/S2 normal; pulses intact and symmetric at radial, DP, and PT Lungs: no acute respiratory distress; symmetrical chest wall expansion; clear breath sounds across all lung leon w/o adventitious sounds; no wheezing ABD: Soft, NTP; BS present; no rebound/guarding; no distention MSK: no tics or fasciculations; no edema noted in the LEs b/l, nonerythematous Neuro: A&Ox3; normal mood and affect; fluent speech; sensation intact and symmetric in the LEs b/l Gait: Ambulated with patient throughout the hallway, and she did not exhibit signs of postural sway or stutter steps. She was able to ambulate independently without ambulatory assistive devices. SpO2 after walking remained at 95% on room air. Results & Data Results & Data Vital Signs (Past 12 Hours) Vital Signs Temp Pulse Pulse Resp BP Pulse Ox Pulse Ox 01/12/25 14:31 63 01/12/25 14:29 67 01/12/25 12:00 98 01/12/25 11:46 36.6 C 59 L 16 135/75 98 01/12/25 07:51 36.4 C L 68 16 122/77 95 01/12/25 07:15 O2 Del Method O2 Del Method 01/12/25 14:31 01/12/25 14:29 01/12/25 12:00 Room Air 01/12/25 11:46 Room Air 01/12/25 07:51 Room Air 01/12/25 07:15 Room Air PG Care Time/CCT Total # of Minutes Spent Total Time Spent with Patient: Total time spent is greater than 50% in coordination of care (as documented) at patient's floor/unit and/or counseling patient: Coding [place] [address] SUB INP/OBS CARE 3/50MIN Patient Type Established Medical Decision Making High Complexity Diagnoses Acute respiratory failure with hypoxia and hypercarbia J96.01; J96.02 CHF (congestive heart failure) I50.9 Type 2 diabetes mellitus with retinopathy of both eyes, with long-term current use of insulin E11.319; Z79.4 CKD stage 3b, GFR 30-44 ml/min N18.32 UTI (urinary tract infection) N39.0
[2025-01-13] MEDS ORDERED: Nursing to Pharmacy Communication SCH ×2 (05:00→20:00)
[2025-01-13] MEDS: INSULIN ASPART PER UNIT CHARGE SC SCH ×2 (05:41→20:12)
[2025-01-13 07:23] LABS: Hematocrit (blood only) 30.2 % (37.0-47.0); Hemoglobin 10.0 g/dl (12.0-16.0); Mean Corpuscular Hemoglobin 29.1 pg (25.0-34.0); Mean Corpuscular Volume 87.8 fL (80.0-100.0); Platelet Count 204 K/uL (130-400); RDW Standard Deviation 47.6 fL (36.4-46.3); Red Blood Count 3.44 M/uL (4.20-5.40); White Blood Count 5.61 K/ul (4.8-10.8)
[2025-01-13 07:39] LABS: Anion Gap 7.0 (3-11); Blood Urea Nitrogen 35.0 mg/dl (6-23); Calcium 8.6 mg/dl (8.6-10.3); Carbon Dioxide 27.0 mmol/L (21-32); Chloride 98.0 mmol/L (98-107); Creatinine Clr Calc Pharmacy 24.7 ml/min; Glucose 88.0 mg/dl (70-99(Fasting)); Potassium 4.8 mmol/L (3.5-5.1); Sodium 132.0 mmol/L (136-145)
--- NOTE | 2025-01-13 13:15 | Pharmacy Report ---
Pharmacy Glycemic Short Note 2 - Date of Service January 13, 2025 - Glycemic Short BSG Results (Last 24 hours): 01/12/25 01/12/25 01/13/25 15:51 20:08 05:39 Glucose POC Glucose 108 H 162 H 85 01/13/25 01/13/25 07:04 11:48 Glucose 88 POC Glucose 109 H OUTPATIENT ANTIDIABETIC REGIMEN: * jardiance 10 mg once daily, NPH 48 units Qam and 44 units Qpm, Novolin R 31 units bidm, metformin 500 mg bid ASSESSMENT: 01/13 * William received a total of 39 units of insulin yesterday (20 units were basal and 19 units were bolus). BSGs were 790-782-528-162mg/dL. * Fasting BSG was 85mg/dL this morning and patient was made NPO after midnight today. AM Lantus was held and PM Lantus scale was decreased due to NPO status. * Will continue bolus insulin regimen without change for now. 01/12 * William received only 49 units of insulin yesterday (30 units were basal and 19 units were bolus). Despite the decrease in insulin, most of her BSGs were below goal yesterday. * Fasting BSG was 106mg/dL this morning. AM Lantus was decreased by 50% and the PM Lantus scale was changed so she would only receive a dose if her BSG is greater than 160mg/dL. * Carb ratio was also loosened to prevent further hypoglycemia. 01/11 * Patient received total of 76 units of insulin yesterday, of which 50 units were basal insulin * Fasting BSG 101 mg/dL, 71 mg/dL on AM lab draw - will scale back on basal for today 01/09 * 79 year old admitted with respiratory distress. Type 2 diabetic, BSGs >300 on admission. Pharmacy consulted for glycemic management. Will utilize Lantus and give 40 units x 1 now with scale on for HS. PLAN FOR INPATIENT GLYCEMIC CONTROL: * Hold outpatient oral medications * Basal insulin * Lantus scale (0, 5, or 10 units depending on BSG) at HS * Bolus insulin * NovoLog per scale ACHS or Q6hrs while NPO * Goal Range: Low 110 mg/dL - High 160 mg/dL * Correction Factor: 15 mg/dL/unit * Nutritional / Prandial insulin per carb ratio of 1 unit per 8 grams CHO consumed
--- NOTE | 2025-01-13 20:51 | Hospitalist Progress Note ---
Date of Service January 13, 2025 Assessment & Plan (1) Acute respiratory failure with hypoxia and hypercarbia: (2) CHF (congestive heart failure): (3) Type 2 diabetes mellitus with retinopathy of both eyes, with long-term current use of insulin: (4) CKD stage 3b, GFR 30-44 ml/min: (5) UTI (urinary tract infection): Plan This is an 79 year old female with past medical history of CHF, CKD, T2DM, pulmonary hypertension who presented to the ED on 01/09/2025 with shortness of breath. #Acute exacerbation of CHF Follows w/ CHF clinic in outpatient --> on Lasix 20mg PO daily outpatient & is compliant. On Jardiance which can be held inpatient. Recommend holding Jardiance upon discharge (in the setting of UTI) CXR: consistent with CHF; repeat CXR 01/10 and 01/12 showing improvement in CHF Chest CTA: negative for PE/pneumonia. Also consistent w/ CHF BNP trend: 1590 -> 1066 -> 1059 s/p IV Lasix 40mg IV x 3. Weight down to 155lb which is about her baseline. Echocardiogram on 01/10 revealed EF of 40% with mild to moderate global hypokinesis of the left ventricle Patient is currently optimized with medical management: On Jardiance, metoprolol, losartan Spironolactone deferred in the past due to history of hyperkalemia Entresto unaffordable Trop trend 82->74 on arrival; EKG without ischemic changes However, patient reported episode of severe SOB after walking on 01/11; labored breathing for approximately 15 minutes "I didn't think I would make it back to my bed" "I felt like I was going to " Per review of prior cardiac history, she has a known history of severe CAD Cardiac catheterization 06/03/2024: "Severe multivessel CAD noted... with prior LAD stent now occluded and also severe CAD involving the circumflex system" Allergy to Imdur Cardiology consult appreciated Repeat EKG unchanged on 01/13 Addendum at 1825: Will plan to hold off on PCI at this time, unless patient's exertional symptoms become more consistent Continue Lasix 20 mg p.o. daily, as feel that patient's HF has been improving, and she is still diuresing and reporting increased urinary output Discussed w/ pt about daily weights and additional PRN doses if gained > 2lbs in 1 day or > 4lbs in 1 week which she was agreeable to. #Asymptomatic bacteriuria UA + for UTI Clinically, patient denies any urinary symptoms (no burning with urination, suprapubic tenderness, or lower back pain) UC + for de oliveira sensitive E. Coli IV Rocephin 2000 mg x 3 days #Type 2 DM BG elevated at 328 on admission, elevation secondary to missing AM dose of insulin. A1c increased to 10.2% on Metformin + NPH insulin + regular human insulin outpatient. Novolog w/ SSI Will consult pharmacy to aide in glycemic management Rec close follow up with endocrinology outpatient. #Cirrhosis ? CTAP from 05/2024 findings consistent w/ cirrhosis. LFTs WNL, plt count stable. PT/INR stable. US neg for ascites. Recommend outpatient follow up w/ PCP and possible GI referral for liver work up. #CAD Continue medical therapy as recommended by interventional cardiology Hx of Gastric ulcer/black stools --> on monotherapy w/ Plavix. Continue statin #HTN Continue Losartan + Metoprolol succinate Continue to monitor #CKD stage 3 Creatinine baseline: 1.2-1.4 - slight drop to 1.53 Na improvement to 135 K/mag stable. #Tremor - Carbidopa-levodopa TID DVT prophylaxis: Lovenox Disposition: Continued stay on PCU telemetry pending formal cardio eval Admission and Anticipated Discharge Date Admission Date: January 09, 2025 Supervising Physician Co-Signing Physician Notes Patient was not seen by me. I verified all [place] points and agree with Erick Jaffe PA-C with the following exceptions and/or additions: Patient continues to diurese despite minimal lasix use. Awaiting cardiology evaluation for her coronary artery disease. Heart failure appears close to baseline but likely to maintain diuresis at home with Lasix 20mg PO which she has been getting here. Subjective Mrs. Xie is in good spirits this morning despite difficulty sleeping last night. While yesterday she reported she was having SOB at rest, she reports she is feeling a little bit better today, and closer to her baseline. No recurrence of severe SOB with walking. She reports she is still urinating a good amount on her current dose of Lasix. No chest pain with ambulation. ROS: Patient endorses ESPINO Patient denies SOB at rest, chest pain, or cough. Review of Systems Review of Systems: See HPI above Physical Exam Physical Exam: General: no acute distress; pleasant affect; family at bedside; non-toxic appearing; cooperative; SpO2 96% on RA HEENT: normocephalic, atraumatic; PERRLA; vision and hearing intact Neck: supple; trachea midline Skin: warm, dry without signs of tenting; no cyanosis; no rashes, bruising, lesions, or erythema noted CV: chest wall NTP; RRR; S1/S2 normal; pulses intact and symmetric at radial, DP, and PT Lungs: no acute respiratory distress; symmetrical chest wall expansion; clear breath sounds across all lung leon w/o adventitious sounds; no wheezing ABD: Soft, NTP; BS present; no rebound/guarding; no distention MSK: no tics or fasciculations; no edema noted in the LEs b/l, nonerythematous Neuro: A&Ox3; normal mood and affect; fluent speech; sensation intact and s ymmetric in the LEs b/l Gait: Ambulated with patient throughout the hallway again today; she did not exhibit signs of postural sway or stutter steps. She was able to ambulate independently without ambulatory assistive devices. SpO2 after walking remained at 95% on room air after returning to the room. Results & Data Results & Data Vital Signs (Past 12 Hours) Vital Signs Temp Pulse Pulse Resp BP Pulse Ox Pulse Ox 01/13/25 19:42 36.4 C L 69 20 114/72 96 01/13/25 15:20 36.6 C 60 18 109/72 97 01/13/25 14:21 55 L 01/13/25 12:00 93 01/13/25 11:55 36.4 C L 63 18 106/72 99 01/13/25 08:57 60 O2 Del Method O2 Del Method 01/13/25 19:42 Room Air 01/13/25 15:20 Room Air 01/13/25 14:21 01/13/25 12:00 Room Air 01/13/25 11:55 Room Air 01/13/25 08:57 PG Care Time/CCT Total # of Minutes Spent Total Time Spent with Patient: Total time spent is greater than 50% in coordination of care (as documented) at patient's floor/unit and/or counseling patient: Coding [place] [address] SUB INP/OBS CARE 35MIN Patient Type Established Medical Decision Making Moderate Complexity Diagnoses Acute respiratory failure with hypoxia and hypercarbia J96.01; J96.02 CHF (congestive heart failure) I50.9 Type 2 diabetes mellitus with retinopathy of both eyes, with long-term current use of insulin E11.319; Z79.4 CKD stage 3b, GFR 30-44 ml/min N18.32 UTI (urinary tract infection) N39.0
--- NOTE | 2025-01-14 00:08 | Cardiology Consultation ---
Date of Consultation January 13, 2025 Assessment & Plan (1) CHF (congestive heart failure): ICM/HFrEFEF 40-45 % 12/2024; ARB, BB, SGLT2 (Entresto dcd due cost; no MRA with hyperkalemia) 2. CAD --post three-vessel CABG; Patent MCCORMACK-LAD, occluded pLAD stent, diffuse LCx disease patent distal stent with 80% stenosis at distal edge. Mild to moderate RCA disease with R->L collaterals 05/2024 Intolerant to Imdur 3. Moderate MR 4. Hypertension--ARB/BB 5. Stage III CKD 6. Type 2 diabetes 7. Anemia Admitted with acute heart failure which has responded appropriately to diuretics. Improved dyspnea, negative more than 7.5 L since admit and minimal residual congestion on exam today. 2 days ago had acute episode of severe dyspnea with exertion. No recurrence since that time although activity has been limited. Question as to whether episode of dyspnea potentially secondary to accelerating angina. Repeat ECG unchanged. Reviewed patient's prior coronary angiography from 05/2024. Did have residual circumflex disease at that time but vessel is small and would favor continued medical management of residual CAD unless clear refractory angina with patient's comorbidities. Discussed this with patient, her and daughter and they are all in agreement. Plan on continued GDMT for HFrEF, maintenance diuretics, ASCVD secondary prevention and additional antianginal therapy as necessary. Continue current losartan, Toprol-XL, empagliflozin Continue maintenance Lasix 20 mg daily. Reinforced importance of salt restriction and home daily weights Continue current clopidogrel, atorvastatin has been intolerant to Imdur in the past. BP unlikely to tolerate CCB. Will arrange close follow-up with me and CHF clinic. If recurrent dyspnea (prior anginal symptoms) while euvolemic could consider Ranexa versus distal LCx PCI History of Present Illness Attending Physician: Fran Stapleton MD History of Present Illness Mrs. Xie is a very pleasant 79-year-old woman with history of CAD post three- vessel CABG in September of 2009 (known occluded vein grafts) and multiple prior PCI with stents to LAD/circumflex, type 2 diabetes on insulin, hypertension, DCIS post mastectomy and HFrEF (EF40%) seen today in hospital for acute heart failure and question of accelerating angina. Patient is well-known to me from the outpatient setting. Last seen 10/17/2024. She also follows with CHF clinic and was last seen 11/2024. At that time was thought to be on maximally tolerated GDMT (BB, ARB, SGLT2), maintenance Lasix 20 mg daily. Echo at that time showed slight improvement in LVEF up to 40 to 45%, DD 2 and mild to moderate MR. She was admitted 01/09 with acute heart failure initially requiring BiPAP. BNP 1000, HS TropI 80 down to 70. Repeat limited echo showed unchanged LV function. Has responded to IV Lasix, negative more than 7.5 L since admission. Has had improvement in overall shortness of breath and no longer on O2. 2 days ago while attempting to walk in the halls had episode of acute shortness of breath. No associated chest pain but has never had chest pain with her CAD. Yesterday was able to walk short distances without any dyspnea. Today reports feeling well. Continues to diurese on p.o. Lasix. Creatinine up from 1.3-1.6. ECG today shows sinus rhythm with questionable septal infarct and no new ST abnormalities. Cardiac history: Patient was previously followed by Dr. Segundo and Dr. Torres for her cardiovascular care. Her coronary disease was initially diagnosed back in 2009 in the setting of stable angina. Her anginal equivalent was shortness of breath/fatigue with exertion and associated numbness in her hands bilaterally. She initially did well following bypass surgery but approximately 8 months later had recurrence of limiting shortness of breath and was found to have occluded vein grafts. At that time underwent stenting from LAD into diagonal and circumflex into OM. Recurrence of symptoms in 2013 and underwent stenting in proximal LAD. Last cardiac catheterization in 04/2015 showed patent stents, patent MCCORMACK and no significant new coronary artery disease. ECHO at that time showed preserved LV function with no significant valvular disease. She completed cardiac rehab following that evaluation. Most recent studies: Echo 05/2024: EF 35% anterior/lateral base to mid barton severely hypokinetic, moderate MR Cardiac cath 05/2024: Patent MCCORMACK to LAD. Occluded proximal LAD stent, 60% proximal and 50% mid LCx. Distal LCx stent patent with 80% stenosis at distal edge. OM1 90% ostial, small OM2 98% ostial. Proximal RCA 50% with right to left collaterals PFTs 08/2023: FEV1 75%, FVC 73%, FEV1/FVC 102 DSE 08/2023: Base to mid septal hypokinesis at stress. ST depressions inferior, V3 through V6 lasting >4 minutes into recovery. Mild LVH, EF 55% at rest Echo 10/2021: EF 65%, mild LVH, DD 1, mild MR PFTs 11/2021: Normal spirometry EGD/colonoscopy 08/2021: Schatzki ring, small hiatal hernia with ulcers/gastritis, sigmoid polyp, diverticulosis, nonbleeding internal hemorrhoids Allergies Allergy/AdvReac Type Severity Reaction Status Date / Time lisinopril Allergy Intermediate Cough Verified 01/01/25 15:54 isosorbide AdvReac Headache Verified 01/01/25 15:54 Home Medications Medication Instructions Recorded Confirmed Type anastrozole 1 mg tablet 1 mg PO QAM 11/08/18 01/09/25 History coenzyme Q10 200 mg capsule 200 mg PO QAM 01/06/20 01/09/25 History vit C 250 mg-vit E 90 mg-zinc 40 1 tab PO BID 09/26/21 01/09/25 History mg-copper 1 [id number] capsule (PreserVision AREDS-2) Spacer for Inhaler #1 ea 09/27/21 01/01/25 Rx prevagen 1 tab PO DAILY 05/29/22 01/09/25 History insulin NPH isoph U-100 human 100 See Rx Instructions subcut 05/23/23 01/09/25 Rx unit/mL (3 mL) subcutaneous pen .COMPLEX 90 days #90 mL (Novolin N FlexPen) pen needle, diabetic 32 gauge x #400 ea 05/23/23 01/01/25 Rx 5/32" (BD Ultra-Fine Suzette Pen Needle) ipratropium 0.5 mg-albuterol 3 mg 3 ml inhalation Q4H PRN wheezing 07/10/23 01/09/25 Rx (2.5 mg base)/3 mL nebulization #180 mL soln nebulizer and compressor #1 ea 07/10/23 01/01/25 Rx budesonide 0.5 mg/2 mL suspension 0.5 mg (2 mL) inhalation BID #60 mL 07/30/23 01/09/25 Rx for nebulization cyanocobalamin (vitamin B-12) 1,000 mcg PO .3XWK 12/19/23 01/09/25 History 2,500 mcg tablet nitroglycerin 0.4 mg sublingual 0.4 mg sublingual Q5M PRN chest 01/08/24 01/09/25 Rx tablet (Nitrostat) pain #25 tabs albuterol sulfate 90 mcg/actuation 2 puff inhalation Q6H PRN Wheezing 01/17/24 01/09/25 Rx aerosol inhaler #18 grams clopidogrel 75 mg tablet 75 mg PO DAILY #90 tabs 05/28/24 01/09/25 Rx choline [id number] 1 tab PO QAM 05/31/24 01/09/25 History empagliflozin 10 mg tablet 10 mg PO DAILY #30 tabs 06/20/24 01/09/25 Rx (Jardiance) primidone 50 mg tablet (Mysoline) See Rx Instructions PO .COMPLEX 06/20/24 01/09/25 History furosemide 40 mg tablet 20 mg (1/2 x 40 mg) PO QAM #90 tabs 07/10/24 01/09/25 Rx metoprolol succinate 200 mg 200 mg PO QAM #90 tabs 08/22/24 01/09/25 Rx tablet,extended release 24 hr insulin regular human 100 unit/mL 31 unit subcut BID 09/05/24 01/09/25 History (3 mL) subcutaneous pen (Novolin R FlexPen) carbidopa 25 mg-levodopa 100 mg 1 tab PO TID #90 tabs 10/30/24 01/09/25 Rx tablet metformin 500 mg tablet 500 mg PO BIDWMEAL 90 days #180 12/16/24 01/09/25 Rx tabs blood-glucose sensor (Vivortecom G7 #1 ea 01/01/25 01/01/25 Rx Sensor device) losartan 50 mg tablet 50 mg PO DAILY #90 tabs 01/02/25 01/09/25 Rx atorvastatin 80 mg tablet 80 mg PO QPM #90 tabs 01/05/25 01/09/25 Rx alendronate 70 mg tablet 70 mg PO WK 01/09/25 01/09/25 History blood sugar diagnostic (Accu-Chek #300 ea 01/13/25 Rx Guide test strips) blood-glucose meter (Accu-Chek #1 ea 01/13/25 Rx Guide Glucose Meter) lancets (Accu-Chek Softclix #300 ea 01/13/25 Rx Lancets) Patient History Medical History (Updated 01/09/25 @ 09:32 by Chai Brito M.D.) Solitary pulmonary nodule stable, seen by pulm, no further follow up recommended Internal hemorrhoid Seborrheic keratoses NSTEMI (non-ST elevated myocardial infarction) Myocardial Infarction 2009 History of COVID-19 01/2021>MILD SYMPTOMS *RESOLVED Surgical History (Updated 01/06/25 @ 11:56 by Piedad Cronin MD) H/O bilateral mastectomy SURGERY ONLY>(NO LIMB RESTRICTION) NO RECONSTRUCTION H/O lumpectomy LEFT X 2 History of tooth extraction History of surgery Right Axillary Dissection, Bilateral Breast Scar Revision - 12/2017 [facility] History of colonoscopy History of trigger finger right thumb release History of open reduction and internal fixation (ORIF) procedure RT ANKLE History of cataract surgery RT/LEFT History of cardiac cath STENTS 06/2010 IN LAD (DIAG AND CX), 1 STENT 04/2011, AND 1 STENT 2013 IN LAD History of coronary artery bypass graft 3 VESSELS-2009 AT [place] *FOLLOWS WITH DR. HAMMER Family History Sister Breast cancer Father Alcoholism Mother Heart disease Uncle Heart disease Daughter Family history of diabetes mellitus Other No family history of adverse response to anesthesia Denies family history of Ovarian cancer Prostate cancer Myocardial infarction Colorectal cancer Social History Smoking Status: Former smoker Tobacco Type: Cigarettes Age Started Using Tobacco: 13; Age Quit Using Tobacco: 43; packs per day: 0.75; Second Hand Exposure: No; Do You Dip or Chew Tobacco: No; Hx Alcohol Use: No Hx Substance Use: No Preferred Language: Northern Irish Communication Ability: Effective Visual Impairment: No Limitations Hearing Ability: Normal Composition Mixer Required: No Beliefs That Will Affect Care: None and Sabianist marital status: Current Living Situation: Spouse Current Living Situation Comment: single story house current occupational status: retired current occupation: Retired Feels Safe at Home: Yes Childhood Exposure to Second-Hand Smoke: Yes Diet: regular caffeine: Yes Dental Care, Regularly: No Physical Activity Frequency: Does not Exercise Seatbelt Use: always Sunscreen Use: Yes Assistive Devices: Cane Review of Systems Review of Systems: All systems reviewed & are unremarkable except as noted in HPI & below Physical Exam Physical Exam: General: Comfortable, HEENT: Sclerae anicteric Lungs: Clear to auscultation bilaterally, no crackles or wheezes Cardiac: Regular rate and rhythm, 1-6 systolic ejection murmur. No JVD Vascular: 2+ radial on left, 1+ on right. Diminished DP/PT pulses bilaterally. Abdomen: Soft, nontender Extremities: Well perfused, no peripheral edema Neuro: Nonfocal Psych: Alert orient x3, normal affect and mood Results & Data Vital Signs (Past 12 Hours) Vital Signs Temp Pulse Pulse Resp BP Pulse Ox Pulse Ox 01/13/25 22:35 97.9 F 63 18 104/66 96 01/13/25 19:42 97.5 F L 69 20 114/72 96 01/13/25 15:20 97.9 F 60 18 109/72 97 01/13/25 14:21 55 L 01/13/25 12:00 93 01/13/25 11:55 97.5 F L 63 18 106/72 99 O2 Del Method O2 Del Method 01/13/25 22:35 Room Air 01/13/25 19:42 Room Air 01/13/25 15:20 Room Air 01/13/25 14:21 01/13/25 12:00 Room Air 01/13/25 11:55 Room Air PG Care Time/CCT Total # of Minutes Spent Total Time Spent with Patient: Total time spent is greater than 50% in coordination of care (as documented) at patient's floor/unit and/or counseling patient: Coding Level of Care Code 51671 INT INP/OBS CARE 2/55MIN Diagnoses CHF (congestive heart failure) I50.9
[2025-01-14 07:08] VITALS: BP 111/71; PULSE 65; RESP 18; TEMP 97.2; O2SAT 95
--- NOTE | 2025-01-14 08:07 | Discharge Summary ---
Discharge Summary Date of Service January 14, 2025 Principal Dx & Hospital Course #1 = Principal Diagnosis (1) Acute HFrEF (heart failure with reduced ejection fraction): (2) Acute respiratory failure with hypoxia and hypercarbia: (3) Type 2 diabetes mellitus with retinopathy of both eyes, with long-term current use of insulin: (4) CKD stage 3b, GFR 30-44 ml/min: (5) UTI (urinary tract infection): Plan This is an 79 year old female with past medical history of CHF, CKD, T2DM, pulmonary hypertension who presented to the ED on 01/09/2025 with shortness of breath. #Acute exacerbation of CHF Follows w/ CHF clinic in outpatient --> on Lasix 20mg PO daily outpatient & is compliant. On Jardiance which can be held inpatient. HOLD Jardiance upon discharge (in the setting of UTI) Patient resume after follow-up with PCP/heart failure clinic CXR: consistent with CHF; repeat CXR 01/10 and 01/12 showing improvement in CHF Chest CTA: negative for PE/pneumonia BNP trend: 1590 -> 1066 -> 1059 s/p IV Lasix 40mg IV x 3. Weight down to 155lb which is about her baseline. Echocardiogram on 01/10 revealed EF of 40% with mild to moderate global hypokinesis of the left ventricle Patient is currently optimized with medical management: On Jardiance, metoprolol, losartan Spironolactone deferred in the past due to history of hyperkalemia Entresto unaffordable Trop trend 82->74 on arrival; EKG without ischemic changes However, patient reported one episode of severe SOB after walking on 01/11; labored breathing for approximately 15 minutes after sitting down "I didn't think I would make it back to my bed" "I felt like I was going to " Per review of prior cardiac history, she has a known history of severe CAD Cardiac catheterization 06/03/2024: "Severe multivessel CAD noted... with prior LAD stent now occluded and also severe CAD involving the circumflex system" Allergy to Imdur Cardiology consult appreciated Repeat EKG unchanged on 01/13 Addendum at 1825: Will plan to hold off on PCI of the circumflex at this time If patient's exertional symptoms become more consistent, will reevaluate Discharge home on Lasix 20 mg p.o. She is still diuresing appropriately, and reporting consistent urinary output at time of discharge Encourage patient to weigh herself daily, and discussed additional PRN doses of Lasix if gained > 2lbs in 1 day or > 4lbs in 1 week, which she was agreeable to Recommend follow-up appointment with the CHF clinic in the next 7 to 10 days #Asymptomatic bacteriuria UA + for UTI Clinically, patient denies any urinary symptoms (no burning with urination, suprapubic tenderness, or lower back pain) UC + for de oliveira sensitive E. Coli IV Rocephin 2000 mg x 3 days Will defer additional antibiotics on discharge, but recommend holding Jardiance in the setting of bacteriuria #Type 2 DM BG elevated at 328 on admission, elevation secondary to missing AM dose of insulin. A1c increased to 10.2% on Metformin + NPH insulin + regular human insulin outpatient. Novolog w/ SSI Will consult pharmacy to aide in glycemic management Rec close follow up with endocrinology outpatient #Cirrhosis ? CTAP from 05/2024 findings consistent w/ cirrhosis. LFTs WNL, plt count stable. PT/INR stable. US neg for ascites. Recommend outpatient follow up w/ PCP and possible GI referral for liver work up. #CAD Continue medical therapy as recommended by interventional cardiology Hx of Gastric ulcer/black stools --> on monotherapy w/ Plavix. Continue statin #HTN Continue Losartan + Metoprolol succinate Continue to monitor #CKD stage 3 Creatinine baseline: 1.2-1.4 - slight drop to 1.53 Na improvement to 135 K/mag stable. #Tremor - Carbidopa-levodopa TID DVT prophylaxis: Lovenox Day of discharge 01/14: VSS Mrs. Xie is in good spirits this morning. She feels ready to go home today. She has had difficulty sleeping in the hospital due to all the noises. However, her breathing is "back to baseline". She has been able to ambulate in the hallways without any recurrence of respiratory distress. She reports that the episode on Thursday 01/11 where she became extremely winded and had to rest for 15 minutes has not recurred while ambulating over the past several days. She does not use up on oxygen at baseline or CPAP at night. She does have a walker/cane at home if needed, but reports no recent falls. She denies feeling lightheaded on her feet when walking through the hallways; she has been ambulated without assist devices in the hospital and doing well. ROS: Patient endorses regular urinary frequency (attributes to Lasix) Patient denies fever, chills, night sweats, chest pain, chest pain with ambulation, chest tightness, lightheadedness or dizziness when walking, chest palpitations, SOB at rest, ESPINO, pleuritic CP, cough, abdominal pain, N/V/D, burning with urination, lower back pain, or swelling/pain in the legs. Disposition: Discharge home Notes For Next Care Provider Patient hospitalized for acute heart failure. Improved with IV Lasix. Her Jardiance will be placed on hold upon discharge due to bacteriuria. Can likely restart in the next several days, or after repeat urinalysis. Additionally, discussed techniques for preventing further episodes of heart failure such as taking additional pill for Lasix 20 mg p.o. if she has weight gain or difficulty breathing with exertion. Admission HPI Per Admitting Provider This is an 79 year old female with past medical history of CHF, CKD, T2DM, pulmonary hypertension who presented to the ED on 01/09/2025 with shortness of breath. The patient was seen & examined this morning with her family at bedside. The patient reports that she started to become short of breath yesterday but then felt okay yesterday evening. She states she woke up this morning with severe shortness of breath. She did not take any of her AM medications including her insulin or eat breakfast. She reports no chest pain or cough. She denies any abdominal pain, nausea, or vomiting. She denies any changes to bowel movements or urination. She denies any abdominal distention. She denies any dizziness. She reports she feels about the same at time of admission compared to her initial ED presentation. She had just gotten her dose of IV Lasix prior to my encounter & has had no urine output thus far. While in the ED, she was found to be hypoxic on arrival in the low 80s & was placed on BiPAP w/ improvement to O2 of 98%. EKG without signs of ischemia. Her CXR was read as CHF w/ small pleural effusions and chest CTA was negative for PE or pneumonia. CBC was consistent with anemia which is within her baseline. No leukocytosis. PT/INR stable. VBGs w/ pH 7.27, pCO2 58, pO2 25, HCO3 27. CMP w/ mild hyponatremia of 133, creatinine mildly elevated at 1.29, BG elevated at 328, Lactate WNL. Mag WNL. LFTs WNL. Trop elevated at 82.2 and BNP elevated at 1590. Procal negative. Respiratory biofire negative. Blood cultures are pending. Code discussion did take place and she does confirm that she is a full code. Admission Exam Per Admitting Provider General: NAD, VS: BP 135/75; P68; R12; T36.2 Resp: normal respiratory effort, lung sounds diminished throughout. CV: RRR, + murmur Abd: normal bowel sounds, non tender to palpation. firm, appears distended but per pt feels normal for her. Extremities: no edema Neuro: A&O x3 Skin: intact Discharge Exam General: no acute distress; pleasant affect; non-toxic appearing; cooperative; SpO2 95% on RA HEENT: normocephalic, atraumatic; PERRLA; vision and hearing intact Neck: supple; trachea midline Skin: warm, dry without signs of tenting; no cyanosis; no rashes, bruising, lesions, or erythema noted CV: chest wall NTP; RRR; S1/S2 normal; pulses intact and symmetric at radial, DP, and PT Lungs: no acute respiratory distress; symmetrical chest wall expansion; clear breath sounds across all lung leon w/o adventitious sounds; no wheezing ABD: Soft, NTP; BS present; no rebound/guarding; no distention MSK: no tics or fasciculations; no edema noted in the LEs b/l, nonerythematous Neuro: A&Ox3; normal mood and affect; fluent speech; sensation intact and symmetric in the LEs b/l Gait: Ambulated with patient throughout the hallway again on day of discharge; she did not exhibit signs of postural sway or stutter steps. She was able to ambulate independently without ambulatory assistive devices. SpO2 after walking remained at 95% on room air after returning to the room. 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 from 01/09 - 01/14 for shortness of breath. On arrival, you were found to be hypoxic with a low oxygen saturation in the 80-89% range. However, your oxygen saturation quickly improved after being placed on BiPAP in the emergency department. Imaging of your chest was negative for pulmonary embolism (blood clots) or pneumonia. Thus, it was suspected that this acute exacerbation of breathing was due to heart failure. You received IV Lasix while in the hospital, and reported that your symptoms gradually improved. A repeat echocardiogram was ordered, which showed a reduced ejection fraction at 40%, similar to your study performed on 12/05/2024. We performed 3 chest x-rays while you are in the hospital, which all showed improvement from prior images to indicate your acute heart failure was improving. 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 At this time, they feel that you do not require a procedure to clear this artery, unless your exertional symptoms become more consistent. At time of discharge, your vitals are currently stable, and you were able to ambulate in the hallways multiple times without your oxygen saturation dropping below 95%. For these reasons we feel that you are safe to return home at this time. We recommend that you follow-up with the heart failure clinic within the next 7 to 10 days. Please check your weight daily, and if you notice increased weight gain of greater than 2 pounds, or trouble breathing with exertion, we recommend you take an additional dose of Lasix 20 mg by mouth. You may resume all previous medications upon discharge as they were prior to arrival (except for Jardiance). Jardiance can lead to increased risk of urinary tract infections. While you reported no urinary symptoms, you were treated with IV antibiotics (ceftriaxone) x 3 days due to bacteria in your urine. Please hold Jardiance until seen by your PCP or the heart failure clinic for follow-up. Please plan to follow-up with your PCP in the next 7 to 10 days for a transitional care appointment. Prior to this appointment, we recommend that you have blood work drawn to assess your kidney function. We also recommend you follow-up with the heart failure clinic at your earliest convenience. If you develop any new or worsening symptoms, such as fever, chills, trouble breathing at rest, chest pain, pain with deep breaths, or swelling in the legs, please return to the emergency department immediately. It was a pleasure taking care of you. Please reach out with any questions or concerns. Sincerely, The Hospital medicine team at [facility] Addtl Freelance Displayer Provider Instructions: DIABETES RECOMMENDATIONS: 1.) Take Novolin-R (clear insulin) 20-30 minutes before breakfast and 20-30 minutes before supper meals. 2.) Encourage continuing Dexcom G7 CGM to help guide diet/diabetes medication adjustments. You may find it easier to remove the sensor by adding oil or an adhesive remover before peeling it off slowly. Soaking the sensor in warm, soapy water can also help. 3.) May consider transitioning to a once daily/24 hour back-groun insulin + rapid-acting insulin (set dose) with meals. Encouraged further discussion with outpatient provider. 4.) If unable to get Jardiance samples from Cardiology office, may consider looking into Brenzavvy as an alternative. Cost is ~$50/month. Pending Studies at Discharge: No Stand-Alone Forms: My [facility] Medications and DC Order Prescriptions: Continued albuterol sulfate 90 mcg/actuation HFA aerosol inhaler 2 puff INHALATION Q6H PRN (Reason: Wheezing) Qty: 18 3RF clopidogrel 75 mg tablet 75 mg PO DAILY Qty: 90 3RF metformin 500 mg tablet 500 mg PO BIDWMEAL 90 Days Qty: 180 3RF losartan 50 mg tablet 50 mg PO DAILY Qty: 90 3RF atorvastatin 80 mg tablet 80 mg PO QPM Qty: 90 3RF prevagen 1 tab PO DAILY anastrozole 1 mg tablet 1 mg PO QAM coenzyme Q10 200 mg capsule 200 mg PO QAM Novolin N FlexPen 100 unit/mL (3 mL) insulin pen See Rx Instructions subcut .COMPLEX 90 Days Qty: 90 3RF Rx Instructions: 48 unit in AM; 44 units PM subcutaneously; (DME) pen needle, diabetic [BD Ultra-Fine Suzette Pen Needle] 32 gauge x 5/32" needle See Dose Instructions .ROUTE .MEDSUPPLY Qty: 400 3RF Rx Instructions: use 4 daily budesonide 0.5 mg/2 mL suspension for nebulization 0.5 mg inhalation BID Qty: 60 1RF cyanocobalamin (vitamin B-12) 2,500 mcg tablet 1,000 mcg PO .3XWK Rx Instructions: 1,000 mcg orally 3x per week; nitroglycerin [Nitrostat] 0.4 mg tablet, sublingual 0.4 mg Sublingual Q5M PRN (Reason: chest pain) Qty: 25 5RF Rx Instructions: PLACE 1 TAB UNDER TONGUE Q5M FOR UP TO 3 DOSES PRN CHEST PAIN. CALL 911 IF PAIN PERSISTS carbidopa-levodopa 25-100 mg tablet 1 tab PO TID Qty: 90 2RF Rx Instructions: take 1/2 tab tid for one week, then take 1 whole tab tid thereafter furosemide 40 mg tablet 20 mg PO QAM Qty: 90 3RF metoprolol succinate 200 mg tablet extended release 24 hr 200 mg PO QAM Qty: 90 3RF Novolin R FlexPen 100 unit/mL (3 mL) insulin pen 31 unit subcut BID (DME) Dexcom G7 Sensor Device See Rx Instructions .Route Qty: 1 3RF Rx Instructions: As directed -exchange every 10 days (DME) nebulizer and compressor Device See Rx Instructions .ROUTE .MEDSUPPLY Qty: 1 0RF Rx Instructions: As directed ipratropium-albuterol 0.5 mg-3 mg(2.5 mg base)/3 mL solution for nebulization 3 ml inhalation Q4H PRN (Reason: wheezing) Qty: 180 1RF primidone [Mysoline] 50 mg tablet See Rx Instructions PO .COMPLEX Rx Instructions: 2 tabs in the AM, 1 tab in the PM orally PreserVision AREDS-2 250-90-40-1 mg Capsule 1 tab PO BID (DME) Spacer for Inhaler Misc See Rx Instructions .Route Qty: 1 0RF Rx Instructions: Use with albuterol inhaler as needed every 2 hours for wheezing. choline [id number] 1 tab PO QAM alendronate 70 mg tablet 70 mg PO WK Rx Instructions: 70 mg orally once weekly; Held Jardiance 10 mg tablet 10 mg PO DAILY Qty: 30 1RF Hold Instructions: Resume on 01/21/25. HOLD until seen by PCP for follow-up No Action (DME) blood-glucose meter [Accu-Chek Guide Glucose Meter] Misc See Rx Instructions .Route Qty: 1 0RF Rx Instructions: TEST BLOOD SUGAR DAILY (DME) Accu-Chek Guide test strips Strip See Rx Instructions .Route Qty: 300 3RF Rx Instructions: TEST BLOOD SUGAR 3 TIMES DAILY (DME) lancets [Accu-Chek Softclix Lancets] Misc See Rx Instructions .Route Qty: 300 3RF Rx Instructions: TEST BLOOD SUGAR THREE TIMES DAILY Discharge Orders: Discharge Order (Routine); Ordered 01/14/25 Ordered By: Erick Odonnell/Other Patient Handouts: High Blood Sugar (Hyperglycemia), Managing Type 2 Diabetes, Heart Failure Dc Admission Data Admit Date/Time: 01/09/25 10:23 Attending Provider: Fran Stpaleton Admit Provider: Fran Stapleton Primary Care Provider: Piedad Cronin Other Providers: Fran Stapleton; Josr Rodrigues Hospital Stay Data Consultations 01/09/25 10:07 ED Decision to Admit Stat 01/12/25 14:57 Consult Cardiology Routine Diagnostic Imagining Performed 01/09/25 08:58 CT angio chest PE protocol Stat 01/09/25 10:43 US abdomen limited Urgent Pending Results Patient Have Any Pending Studies at Discharge: No Discharge Instructions Given to Patient (Per Discharging Provider) You were hospitalized at [facility] from 01/09 - 01/14 for shortness of breath. On arrival, you were found to be hypoxic with a low oxygen saturation in the 80-89% range. However, your oxygen saturation quickly improved after being placed on BiPAP in the emergency department. Imaging of your chest was negative for pulmonary embolism (blood clots) or pneumonia. Thus, it was suspected that this acute exacerbation of breathing was due to heart failure. You received IV Lasix while in the hospital, and reported that your symptoms gradually improved. A repeat echocardiogram was ordered, which showed a reduced ejection fraction at 40%, similar to your study performed on 12/05/2024. We performed 3 chest x-rays while you are in the hospital, which all showed improvement from prior images to indicate your acute heart failure was improving. 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 At this time, they feel that you do not require a procedure to clear this artery, unless your exertional symptoms become more consistent. At time of discharge, your vitals are currently stable, and you were able to ambulate in the hallways multiple times without your oxygen saturation dropping below 95%. For these reasons we feel that you are safe to return home at this time. We recommend that you follow-up with the heart failure clinic within the next 7 to 10 days. Please check your weight daily, and if you notice increased weight gain of greater than 2 pounds, or trouble breathing with exertion, we recommend you take an additional dose of Lasix 20 mg by mouth. You may resume all previous medications upon discharge as they were prior to arrival (except for Jardiance). Jardiance can lead to increased risk of urinary tract infections. While you reported no urinary symptoms, you were treated with IV antibiotics (ceftriaxone) x 3 days due to bacteria in your urine. Please hold Jardiance until seen by your PCP or the heart failure clinic for follow-up. Please plan to follow-up with your PCP in the next 7 to 10 days for a transitional care appointment. Prior to this appointment, we recommend that you have blood work drawn to assess your kidney function. We also recommend you follow-up with the heart failure clinic at your earliest convenience. If you develop any new or worsening symptoms, such as fever, chills, trouble breathing at rest, chest pain, pain with deep breaths, or swelling in the legs, please return to the emergency department immediately. It was a pleasure taking care of you. Please reach out with any questions or concerns. Sincerely, The Hospital medicine team at [facility] Supervising Physician Co-Signing Physician Notes The patient was not seen by me. The chart was reviewed. Case discussed with VICTORINO Babcock. Agree with assessment and plan Total Time Total Time Spent Total Time Spent (In Minutes): 25 Coding Level of Care Code 38294 IN/OBS DISCH 30 MIN/LESS Diagnoses Acute HFrEF (heart failure with reduced ejection fraction) I50.21 Acute respiratory failure with hypoxia and hypercarbia J96.01; J96.02 Type 2 diabetes mellitus with retinopathy of both eyes, with long-term current use of insulin E11.319; Z79.4 CKD stage 3b, GFR 30-44 ml/min N18.32 UTI (urinary tract infection) N39.0
[2025-01-14] MEDS: INSULIN HUMAN NPH SC SCH (09:04)
--- NOTE | 2025-01-15 06:09 | Electrocardiogram Report ---
Test Reason : Blood Pressure : */* mmHG Vent. Rate : 62 BPM Atrial Rate : 62 BPM P-R Int : 154 ms QRS Dur : 90 ms QT Int : 462 ms P-R-T Axes : 59 32 113 degrees QTcB Int : 468 ms Normal sinus rhythm Septal infarct (cited on or before 31-May-2024) T wave abnormality, consider lateral ischemia Abnormal ECG When compared with ECG of 09-Jan-2025 08:39, No significant change was found Confirmed by Josr Rodrigues ([id number]) on 01/15/2025 6:08:37 AM Referred By: REFERRED SELF Confirmed By: Josr Rodrigues
== END 2025-01-14 11:03 | disposition home or self-care (01) | DRG 291 ==
LOC: SUATTDRO → ED 08:32 → SUATTDRO 10:23 → 2S 10:23

== ENCOUNTER 2025-01-22 09:03 | Inpatient (IN) ==
--- NOTE | 2025-01-22 09:12 | Emergency Department Note ---
Impression & Plan Congestive heart failure, Increasing shortness of breath ED Provider Note CHIEF COMPLAINT: Respiratory distress HISTORY OF PRESENTING ILLNESS: The patient is a pleasant, 79-year-old female with past medical history CHF, CAD, CKD 3, T2DM. Patient has an occluded pLAD stent, who arrives to the emergency department for evaluation of an episode of shortness of breath. The patient was recently admitted to the hospital for a hypoxic respiratory failure, CHF, and pleural effusions. The patient was discharged on 01/14 from the hospital and has been feeling well. She reports this morning noting an episode of increased respiratory rate, with significant shortness of breath. She denies chest pain. She reports no abdominal pain. She states no recent cough, or viral illness. She states she was placed on BiPAP at her facility, for a short period of time, with improvement in her symptoms. She states she is feeling better at this time, however not completely improved. She does report a 2 pound weight gain since Sunday. She is not hypoxic upon arrival, on room air. Respiratory rate currently within normal limits. REVIEW OF SYSTEMS: See HPI for pertinent positives and pertinent negatives. ALLERGIES: See below MEDICATIONS: See below PAST MEDICAL HISTORY: See below PHYSICAL EXAM: VITALS: Vitals are noted on the nurse's note and reviewed by myself. Vital signs stable. GENERAL: 79-year-old female, in no acute distress, nondiaphoretic, well- developed well-nourished. SKIN: Areas of ecchymosis, on the upper extremities due to IV starts. HEAD: Normocephalic atraumatic. EARS: External auditory canals clear, tympanic membranes pearly watts without erythema or effusion bilaterally. EYES: Pupils equal round and reactive to light and accommodation. Conjunctivae without injection, sclerae without icterus. Extraocular movements intact. NOSE: Patent, turbinates without inflammation or discharge. No sinus tenderness. MOUTH: Mucous membranes moist. Tonsils are not enlarged. Pharynx without erythema or exudate. Uvula midline. Airway patent. Tongue does not deviate. NECK: Supple without nuchal rigidity. No lymphadenopathy. Cervical spine is nontender. No JVD. HEART: Regular rate and rhythm without murmurs gallops or rubs. LUNGS: Fine crackles in bases. ABDOMEN: Positive bowel sounds x 4. Soft, nontender, without masses or organomegaly. Blanca sign negative. No guarding or rebound tenderness. MUSCULOSKELETAL: No muscle atrophy, erythema, or edema noted. Normal gait. Strength 5/5 throughout. NEURO: Patient was alert and oriented to person place and time. No focal neurological deficits. DIFFERENTIAL DIAGNOSIS: Reactive airway disease, pneumonia, pneumothorax, COPD, CHF, infections, cardiac ischemia, pulmonary embolism, musculoskeletal, gastrointestinal, as well as other pathologies. ED COURSE AND MEDICAL DECISION MAKING: MEDICATIONS GIVEN: Reactive airway disease, pneumonia, pneumothorax, COPD, CHF, infections, cardiac ischemia, pulmonary embolism, musculoskeletal, gastrointestinal, as well as other pathologies. MONITOR: Continuous cardiac nurse practitioner: Order was placed for continuous cardiac nurse practitioner. Patient was placed on the cardiac nurse practitioner and continuous pulse ox. Patient was noted to be in normal sinus rhythm at an initial rate of 64 bpm per my interpretation. EKG: EKG was interpreted by myself as NSR at a rate of 62bpm with T wave inversions in lead I, AVL, consistent with previous of 01/13/2025. INTERPRETATION OF LABS: I interpreted the labs with full lab results as below in the lab section of this note. Pertinent lab results discussed in the MDM section below. INTERPRETATION OF IMAGING: Imaging studies were interpreted by myself and read by radiology as per the imaging section of this note. CHRONIC MEDICAL/SOCIAL CONDITIONS AFFECTING CARE: CHF, CAD, HTN, CKD III, T2DM MDM SUMMARY: The patient is a pleasant, 79-year-old female who arrives to the emergency department for evaluation of the above-stated complaint. Saline lock was established, lab work was obtained. CBC shows no leukocytosis, patient has a stable anemia. CMP shows elevated BUN and creatinine consistent with patient's baseline. Magnesium within normal limits. Initial troponin 107.9, with repeat 37.9. BNP 1944, consistent with CHF exacerbation. Patient did have fine crackles in the bases of the lungs. Chest x-ray per my interpretation shows a stable exam with stable CHF and small bilateral pleural effusions. Patient was provided 40 mg of IV Lasix. EKG interpreted as noted above. The patient will require admission for IV diuresis and serial troponin values. The patient was admitted to the [facility]. Dr. Stapleton agreed to evaluate and admit the patient under his care. Please refer to his documentation for further patient workup. DIAGNOSIS: CHF exacerbation, elevated troponin The patient's case was discussed with Dr. Taveras, who agreed with my evaluation and treatment plan. The chart was completed utilizing [employer] Speech voice recognition software. Grammatical errors, random word insertions, pronoun errors, and incomplete sentences are an occasional consequence of this system due to software limitations, ambient noise, and hardware issues. Any formal questions or concerns about the content, text, or information contained within the body of this dictation should be directly addressed to the provider for clarification. Past Med/Surg History Problem List (Updated 01/22/25 @ 15:56 by HOWARD Barrow) Increasing shortness of breath (Acute) Congestive heart failure (Acute) Type 2 diabetes mellitus Abnormal EKG Ischemic cardiomyopathy Acute on chronic systolic CHF (congestive heart failure) Hospital discharge follow-up CKD stage 3b, GFR 30-44 ml/min Normocytic anemia Type 2 diabetes mellitus with retinopathy of both eyes, with long-term current use of insulin Hyperlipidemia Hypertension 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 Mitral regurgitation Pulmonary hypertension Cardiomyopathy Overweight (BMI 25.0-29.9) Sensorineural hearing loss of both ears Diabetic nephropathy associated with type 2 diabetes mellitus Glenohumeral arthritis CAD (coronary artery disease) (Chronic) Osteopenia (Acute) Depression (Chronic) Breast cancer (Chronic 07/2017) left breast infiltrating ductal CA dx 07/2017 (ER+/[place]+, Her 2 -) and right breast invasive ductal CA dx 11/2017 (ER+/[place]+, Her 2 +), s/p elective B/L mastectomy with right axillary dissection (0/7 nodes +), on el?medex since Jan 2018 Medical History (Updated 01/22/25 @ 15:56 by HOWARD Barrow) Solitary pulmonary nodule stable, seen by pulm, no further follow up recommended Internal hemorrhoid Seborrheic keratoses NSTEMI (non-ST elevated myocardial infarction) Myocardial Infarction 2009 History of COVID-19 01/2021>MILD SYMPTOMS *RESOLVED Surgical History (Updated 01/06/25 @ 11:56 by Piedad Cronin MD) H/O bilateral mastectomy SURGERY ONLY>(NO LIMB RESTRICTION) NO RECONSTRUCTION H/O lumpectomy LEFT X 2 History of tooth extraction History of surgery Right Axillary Dissection, Bilateral Breast Scar Revision - 12/2017 [facility] History of colonoscopy History of trigger finger right thumb release History of open reduction and internal fixation (ORIF) procedure RT ANKLE History of cataract surgery RT/LEFT History of cardiac cath STENTS 06/2010 [facility] (DIAG AND CX), 1 STENT 04/2011, AND 1 STENT 2013 [facility] History of coronary artery bypass graft 3 VESSELS-2009 AT [facility] *FOLLOWS WITH DR. HAMMER Family History Sister Breast cancer Father Alcoholism Mother Heart disease Uncle Heart disease Daughter Family history of diabetes mellitus Other No family history of adverse response to anesthesia Denies family history of Ovarian cancer Prostate cancer Myocardial infarction Colorectal cancer Social History Smoking Status: Former smoker Tobacco Type: Cigarettes Age Started Using Tobacco: 13; Age Quit Using Tobacco: 43; packs per day: 0.75; Second Hand Exposure: No; Do You Dip or Chew Tobacco: No; Hx Alcohol Use: No Hx Substance Use: No Preferred Language: Turkmen Communication Ability: Effective Visual Impairment: No Limitations Hearing Ability: Normal Assistant Account Manager Required: No Beliefs That Will Affect Care: None marital status: Current Living Situation: Spouse Current Living Situation Comment: single story house current occupational status: retired current occupation: Retired Feels Safe at Home: Yes Childhood Exposure to Second-Hand Smoke: Yes Diet: regular caffeine: Yes Dental Care, Regularly: No Physical Activity Frequency: Does not Exercise Seatbelt Use: always Sunscreen Use: Yes Assistive Devices: Cane, Denture - Upper and Glasses Allergies Allergies Allergy/AdvReac Type Severity Reaction Status Date / Time lisinopril Allergy Intermediate Cough Verified 01/21/25 14:06 isosorbide AdvReac Headache Verified 01/21/25 14:06 Home Meds Home Medications Medication Instructions Recorded Confirmed anastrozole 1 mg tablet 1 mg PO QAM 11/08/18 01/22/25 coenzyme Q10 200 mg capsule 200 mg PO QAM 01/06/20 01/22/25 vit C 250 mg-vit E 90 mg-zinc 40 1 tab PO BID 09/26/21 01/22/25 mg-copper 1 [id number] capsule (PreserVision AREDS-2) prevagen 1 tab PO DAILY 05/29/22 01/22/25 cyanocobalamin (vitamin B-12) 1,000 mcg PO .3XWK 12/19/23 01/22/25 2,500 mcg tablet choline [id number] 1 tab PO QAM 05/31/24 01/22/25 primidone 50 mg tablet (Mysoline) 50 - 100 mg PO DIRECTED 06/20/24 01/22/25 insulin regular human 100 unit/mL 31 unit subcut BID 09/05/24 01/22/25 (3 mL) subcutaneous pen (Novolin R FlexPen) fluoxetine 20 mg capsule 20 mg PO DAILY 01/21/25 01/22/25 furosemide 40 mg tablet 40 mg PO QAM 01/21/25 01/22/25 alendronate 70 mg tablet 70 mg PO WK 01/22/25 01/22/25 insulin NPH isoph U-100 human 100 44 - 48 unit subcut BID 01/22/25 01/22/25 unit/mL (3 mL) subcutaneous pen (Novolin N FlexPen) Previous Rx's Medication Instructions Recorded Spacer for Inhaler #1 ea 09/27/21 pen needle, diabetic 32 gauge x #400 ea 05/23/23" (BD Ultra-Fine Suzette Pen Needle) ipratropium 0.5 mg-albuterol 3 mg 3 ml inhalation Q4H PRN wheezing 07/10/23 (2.5 mg base)/3 mL nebulization #180 mL soln nebulizer and compressor #1 ea 07/10/23 budesonide 0.5 mg/2 mL suspension 0.5 mg (2 mL) inhalation BID #60 mL 07/30/23 for nebulization nitroglycerin 0.4 mg sublingual 0.4 mg sublingual Q5M PRN chest 01/08/24 tablet (Nitrostat) pain #25 tabs albuterol sulfate 90 mcg/actuation 2 puff inhalation Q6H PRN Wheezing 01/17/24 aerosol inhaler #18 grams clopidogrel 75 mg tablet 75 mg PO DAILY #90 tabs 05/28/24 empagliflozin 10 mg tablet 10 mg PO DAILY #30 tabs 06/20/24 (Jardiance) carbidopa 25 mg-levodopa 100 mg 1 tab PO TID #90 tabs 10/30/24 tablet metformin 500 mg tablet 500 mg PO BIDWMEAL 90 days #180 12/16/24 tabs blood-glucose sensor (Dexcom G7 #1 ea 01/01/25 Sensor device) losartan 50 mg tablet 50 mg PO DAILY #90 tabs 01/02/25 atorvastatin 80 mg tablet 80 mg PO QPM #90 tabs 01/05/25 blood sugar diagnostic (Accu-Chek #300 ea 01/13/25 Guide test strips) blood-glucose meter (Accu-Chek #1 ea 01/13/25 Guide Glucose Meter) lancets (Accu-Chek Softclix #300 ea 01/13/25 Lancets) metoprolol succinate 200 mg 200 mg PO QAM #90 tabs 01/16/25 tablet,extended release 24 hr Results & Data (ED) Vital Signs Vital Signs - 24 hr 01/22/25 09:18 01/22/25 09:18 01/22/25 09:23 Temperature 36.7 C Temperature Source Oral Pulse Rate 64 Pulse Rate from SpO2 Sensor Respiratory Rate 24 Respiratory Effort / Characteristics Non-Labored Spontaneous Non-Labored Spontaneous Respiratory Depth Normal Respiratory Pattern Regular Blood Pressure 131/73 Blood Pressure Mean 92 Blood Pressure Position Lying Pulse Oximetry 94 91 Oxygen Delivery Method Room Air Room Air Room Air Sepsis Recent Fever Within 48 Hours No Sepsis New/Unexplained Change in Mental Status N/A Sepsis Action Taken by Nursing No Action Required 01/22/25 09:23 01/22/25 10:02 01/22/25 10:06 Temperature Temperature Source Pulse Rate 59 L 60 Pulse Rate from SpO2 Sensor 60 Respiratory Rate 15 Respiratory Effort / Characteristics Respiratory Depth Respiratory Pattern Blood Pressure Blood Pressure Mean Blood Pressure Position Pulse Oximetry 91 94 Oxygen Delivery Method Room Air Sepsis Recent Fever Within 48 Hours Sepsis New/Unexplained Change in Mental Status Sepsis Action Taken by Nursing 01/22/25 10:24 01/22/25 10:35 01/22/25 10:39 Temperature Temperature Source Pulse Rate 60 61 Pulse Rate from SpO2 Sensor 60 62 Respiratory Rate 25 H 19 Respiratory Effort / Characteristics Respiratory Depth Respiratory Pattern Blood Pressure 122/53 L Blood Pressure Mean 78 Blood Pressure Position Pulse Oximetry 95 96 Oxygen Delivery Method Sepsis Recent Fever Within 48 Hours Sepsis New/Unexplained Change in Mental Status Sepsis Action Taken by Nursing 01/22/25 11:00 Temperature Temperature Source Pulse Rate 61 Pulse Rate from SpO2 Sensor Respiratory Rate 23 Respiratory Effort / Characteristics Respiratory Depth Respiratory Pattern Blood Pressure 129/64 Blood Pressure Mean 86 Blood Pressure Position Pulse Oximetry 96 Oxygen Delivery Method Room Air Sepsis Recent Fever Within 48 Hours Sepsis New/Unexplained Change in Mental Status Sepsis Action Taken by Nursing Laboratory Data 01/22/25 09:10 01/22/25 09:10 Lab Results 01/22/25 01/22/25 Range/Units 09:10 10:54 WBC 7.31 (4.8-10.8) K/ul RBC 3.42 L (4.20-5.40) M/uL Hgb 10.0 L (12.0-16.0) g/dl Hct 31.1 L (37.0-47.0) % MCV 90.9 (80.0-100.0) fL MCH 29.2 (25.0-34.0) pg MCHC 32.2 (32.0-36.0) g/dL RDW Std Deviation 51.3 H (36.4-46.3) fL RDW Coeff of Sarina 15.6 H (11.5-14.5) % Plt Count 216 (130-400) K/uL MPV 10.3 (9.4-12.4) fL Immature Gran % (Auto) 0.4 % Neut % (Auto) 75.7 % Lymph % (Auto) 13.3 % [place] % (Auto) 7.5 % Eos % (Auto) 2.6 % Baso % (Auto) 0.5 % Neut # (Auto) 5.53 (1.40-6.50) K/uL Lymph # (Auto) 0.97 L (1.20-3.40) K/uL [place] # (Auto) 0.55 (0.11-0.59) K/uL Eos # (Auto) 0.19 (0.00-0.50) K/uL Baso # (Auto) 0.04 (0.00-0.20) K/uL Immature Gran # (Auto) 0.03 (0.01-0.20) K/uL Sodium 136 (136-145) mmol/L Potassium 4.9 (3.5-5.1) mmol/L Chloride 100 (98-107) mmol/L Carbon Dioxide 27 (21-32) mmol/L Anion Gap 9 (3-11) BUN 43 H (6-23) mg/dl Creatinine 1.62 H (0.6-1.2) mg/dl Est Cr Clr Drug Dosing 25.9 ml/min eGFR 31.72 BUN/Creatinine Ratio 26.5 H (10-20) Glucose 191 H (70-99(Fasting)) mg/dl Calcium 9.0 (8.6-10.3) mg/dl Magnesium 2.1 (1.7-2.4) mg/dl Total Bilirubin 0.4 (0.2-1.0) mg/dl AST 35 (13-39) U/L ALT 30 (7-52) U/L Alkaline Phosphatase 75 (34-104) U/L Troponin I High Sens 107.9 H* 107.5 H* (0-14) pg/ml B-Natriuretic Peptide 1944 H (0-100) pg/ml Total Protein 7.2 (6.0-8.3) gm/dl Albumin 3.6 (3.4-5.0) gm/dl Globulin 3.6 (2.5-4.0) gm/dl Albumin/Globulin Ratio 1.0 (0.9-2) Administered Medications Carbidopa/Levodopa (Carbidopa/Levodopa 25/100mg Tab) 1 tab PO TID AZEEM Stop: 02/21/25 13:59 Last Admin: 01/22/25 14:13 Dose: 1 tab Documented By: CHAZ Insulin Aspart (Insulin Aspart Per Unit Charge) 0 units SC ACHS AZEEM Stop: 02/21/25 12:08 Last Admin: 01/22/25 13:11 Dose: 5 units Documented By: CHAZ Co-signed By: DEDRICK Discontinued Medications Furosemide (Furosemide 40 Mg/4 Ml Vial) 40 mg IV ONE ONE Stop: 01/22/25 10:03 Last Admin: 01/22/25 10:35 Dose: 40 mg Documented By: MILES Imaging Data Radiologist's Impression: Chest X-Ray 01/22/25 09:12 XR chest 2V PA/lateral CLINICAL HISTORY: Dyspnea COMPARISON STUDY: 01/12/2025 FINDINGS: Stable CABG. Stable cardiomegaly with mild pulmonary vascular congestion. Stable small bilateral pleural effusions and mild adjacent lung base consolidation. No pneumothorax seen. IMPRESSION: Stable exam with CHF and small bilateral pleural effusions. ACT 112: Negative or not required by law. Electronically signed by: Joshua Singh M.D. 01/22/2025 10:06 AM Discharge Plan Visit Data Chief Complaint: Respiratory Distress Stated Complaint: RESP DIFF ED Provider: Nacho Taveras ED Midlevel Provider: Sirisha Malin Discharge Problem: Congestive heart failure, Increasing shortness of breath Patient Disposition: Admitted As Inpatient Condition: Fair Discharge Instructions Interventions: ED Discharge Assessment Last Done: 01/22/25 14:29
[2025-01-22 09:30] LABS: Hematocrit (blood only) 31.1 % (37.0-47.0); Hemoglobin 10.0 g/dl (12.0-16.0); Immature Granulocytes # (auto) 0.03 K/uL (0.01-0.20); Immature Granulocytes % (auto) 0.4 %; Mean Corpuscular Hemoglobin 29.2 pg (25.0-34.0); Mean Corpuscular Volume 90.9 fL (80.0-100.0); Platelet Count 216 K/uL (130-400); RDW Standard Deviation 51.3 fL (36.4-46.3); Red Blood Count 3.42 M/uL (4.20-5.40); White Blood Count 7.31 K/ul (4.8-10.8)
[2025-01-22 09:50] LABS: Alanine Aminotransferase 30.0 U/L (7-52); Albumin Globulin Ratio 1.0 (0.9-2); Albumin Level 3.6 gm/dl (3.4-5.0); Alkaline Phosphatase 75.0 U/L (34-104); Anion Gap 9.0 (3-11); Bilirubin,Total 0.4 mg/dl (0.2-1.0); Blood Urea Nitrogen 43.0 mg/dl (6-23); Calcium 9.0 mg/dl (8.6-10.3); Carbon Dioxide 27.0 mmol/L (21-32); Chloride 100.0 mmol/L (98-107); Creatinine Clr Calc Pharmacy 25.9 ml/min; Globulin 3.6 gm/dl (2.5-4.0); Glucose 191.0 mg/dl (70-99(Fasting)); Magnesium 2.1 mg/dl (1.7-2.4); Potassium 4.9 mmol/L (3.5-5.1); Sodium 136.0 mmol/L (136-145); Total Protein 7.2 gm/dl (6.0-8.3)
--- NOTE | 2025-01-22 10:07 | XRay Report ---
XR chest 2V PA/lateral CLINICAL HISTORY: Dyspnea COMPARISON STUDY: 01/12/2025 FINDINGS: Stable CABG. Stable cardiomegaly with mild pulmonary vascular congestion. Stable small bila teral pleural effusions and mild adjacent lung base consolidation. No pneumothorax seen. IMPRESSION: Stable exam with CHF and small bilateral pleural effusions. ACT 112: Negative or not required by law. Electronically signed by: Joshua Singh M.D. 01/22/2025 10:06 AM
[2025-01-22] MEDS: FUROSEMIDE 40 MG/4 ML VIAL IV ONE (10:35)
--- NOTE | 2025-01-22 10:35 | Emergency Department Note ---
ED Visit Note ED Physician Supervisory Note & Attestation: I was consulted by the Advanced Practice Provider, Sirisha LAWRENCE. I personally made/approved the management plan and take responsibility for the patient management. I performed a substantive portion of the visit. This includes the aspects of: MDM: 79-year-old female worsening respiratory distress is found to be in pulmonary edema requiring hospitalization Nacho Taveras MD
--- NOTE | 2025-01-22 11:34 | History & Physical Report ---
Date of Service January 22, 2025 Assessment & Plan (1) Acute on chronic systolic CHF (congestive heart failure): Plan: Recent cardiac echo revealed ejection fraction of 40 to 45%. Parenteral Lasix diuresis. Monitor intake and output. Serial chest x-ray (2) Ischemic cardiomyopathy: Plan: Troponin is elevated on admission. Telemetry. Serial troponins and serial EKGs ordered. Known history of coronary artery disease with bypass grafting and PCI. Cardiology consultation requested (3) Abnormal EKG: Plan: Lateral ST and T wave changes noted. Serial EKGs ordered. Telemetry (4) Type 2 diabetes mellitus: Plan: ADA diet. Continue NPH insulin twice daily. Sliding scale coverage Plan To be determined History of Present Illness Chief Complaint: Shortness of breath Primary Care Provider: Piedad Cronin MD 79-year-old white female who was recently hospitalized with exacerbation of CHF. She has known ischemic cardiomyopathy with ejection fraction approximately 40 to 45%. Previous history of coronary artery bypass grafting with PCI. She presents again with shortness of breath and findings of congestive heart failure. Troponin is elevated and BNP is also elevated. EKG is abnormal with lateral ST and T wave depressions. At the time of my examination she is symptom-free at rest. She is admitted for further evaluation and treatment. She denies feeling palpitations and denies syncope Allergies Allergy/AdvReac Type Severity Reaction Status Date / Time lisinopril Allergy Intermediate Cough Verified 01/21/25 14:06 isosorbide AdvReac Headache Verified 01/21/25 14:06 Home Medications Medication Instructions Recorded Confirmed Type anastrozole 1 mg tablet 1 mg PO QAM 11/08/18 01/22/25 History coenzyme Q10 200 mg capsule 200 mg PO QAM 01/06/20 01/22/25 History vit C 250 mg-vit E 90 mg-zinc 40 1 tab PO BID 09/26/21 01/22/25 History mg-copper 1 [id number] capsule (PreserVision AREDS-2) Spacer for Inhaler #1 ea 09/27/21 01/01/25 Rx prevagen 1 tab PO DAILY 05/29/22 01/22/25 History pen needle, diabetic 32 gauge x #400 ea 05/23/23 01/01/25 Rx 5/32" (BD Ultra-Fine Suzette Pen Needle) ipratropium 0.5 mg-albuterol 3 mg 3 ml inhalation Q4H PRN wheezing 07/10/23 01/22/25 Rx (2.5 mg base)/3 mL nebulization #180 mL soln nebulizer and compressor #1 ea 07/10/23 01/01/25 Rx budesonide 0.5 mg/2 mL suspension 0.5 mg (2 mL) inhalation BID #60 mL 07/30/23 01/22/25 Rx for nebulization cyanocobalamin (vitamin B-12) 1,000 mcg PO .3XWK 12/19/23 01/22/25 History 2,500 mcg tablet nitroglycerin 0.4 mg sublingual 0.4 mg sublingual Q5M PRN chest 01/08/24 01/22/25 Rx tablet (Nitrostat) pain #25 tabs albuterol sulfate 90 mcg/actuation 2 puff inhalation Q6H PRN Wheezing 01/17/24 01/22/25 Rx aerosol inhaler #18 grams clopidogrel 75 mg tablet 75 mg PO DAILY #90 tabs 05/28/24 01/22/25 Rx choline [id number] 1 tab PO QAM 05/31/24 01/22/25 History empagliflozin 10 mg tablet 10 mg PO DAILY #30 tabs 06/20/24 01/22/25 Rx (Jardiance) primidone 50 mg tablet (Mysoline) 50 - 100 mg PO DIRECTED 06/20/24 01/22/25 History insulin regular human 100 unit/mL 31 unit subcut BID 09/05/24 01/22/25 History (3 mL) subcutaneous pen (Novolin R FlexPen) carbidopa 25 mg-levodopa 100 mg 1 tab PO TID #90 tabs 10/30/24 01/22/25 Rx tablet metformin 500 mg tablet 500 mg PO BIDWMEAL 90 days #180 12/16/24 01/22/25 Rx tabs blood-glucose sensor (Dexcom G7 #1 ea 01/01/25 01/01/25 Rx Sensor device) losartan 50 mg tablet 50 mg PO DAILY #90 tabs 01/02/25 01/22/25 Rx atorvastatin 80 mg tablet 80 mg PO QPM #90 tabs 01/05/25 01/22/25 Rx blood sugar diagnostic (Accu-Chek #300 ea 01/13/25 Rx Guide test strips) blood-glucose meter (Accu-Chek #1 ea 01/13/25 Rx Guide Glucose Meter) lancets (Accu-Chek Softclix #300 ea 01/13/25 Rx Lancets) metoprolol succinate 200 mg 200 mg PO QAM #90 tabs 01/16/25 01/22/25 Rx tablet,extended release 24 hr fluoxetine 20 mg capsule 20 mg PO DAILY 01/21/25 01/22/25 History furosemide 40 mg tablet 40 mg PO QAM 01/21/25 01/22/25 History alendronate 70 mg tablet 70 mg PO WK 01/22/25 01/22/25 History insulin NPH isoph U-100 human 100 44 - 48 unit subcut BID 01/22/25 01/22/25 History unit/mL (3 mL) subcutaneous pen (Novolin N FlexPen) Past Med/Surg History Problem List (Updated 01/22/25 @ 11:32 by Fran Stapleton MD) Type 2 diabetes mellitus Abnormal EKG Ischemic cardiomyopathy Acute on chronic systolic CHF (congestive heart failure) Hospital discharge follow-up CKD stage 3b, GFR 30-44 ml/min Normocytic anemia Type 2 diabetes mellitus with retinopathy of both eyes, with long-term current use of insulin Hyperlipidemia Hypertension 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 Mitral regurgitation Pulmonary hypertension Cardiomyopathy Overweight (BMI 25.0-29.9) Sensorineural hearing loss of both ears Diabetic nephropathy associated with type 2 diabetes mellitus Glenohumeral arthritis CAD (coronary artery disease) (Chronic) Osteopenia (Acute) Depression (Chronic) Breast cancer (Chronic 07/2017) left breast infiltrating ductal CA dx 07/2017 ([place]+/[place]+, Her 2 -) and right breast invasive ductal CA dx 11/2017 ([place]+/[place]+, Her 2 +), s/p elective B/L mastectomy with right axillary dissection (0/7 nodes +), on Arimedex since Jan 2018 Medical History (Updated 01/22/25 @ 11:32 by Fran Stapleton MD) Solitary pulmonary nodule stable, seen by pulm, no further follow up recommended Internal hemorrhoid Seborrheic keratoses NSTEMI (non-ST elevated myocardial infarction) Myocardial Infarction 2009 History of COVID-19 01/2021>MILD SYMPTOMS *RESOLVED Surgical History (Updated 01/06/25 @ 11:56 by Piedad Cronin MD) H/O bilateral mastectomy SURGERY ONLY>(NO LIMB RESTRICTION) NO RECONSTRUCTION H/O lumpectomy LEFT X 2 History of tooth extraction History of surgery Right Axillary Dissection, Bilateral Breast Scar Revision - 12/2017 [facility] History of colonoscopy History of trigger finger right thumb release History of open reduction and internal fixation (ORIF) procedure RT ANKLE History of cataract surgery RT/LEFT History of cardiac cath STENTS 06/2010 IN [facility] (DIAG AND CX), 1 STENT 04/2011, AND 1 STENT 2013 IN [facility] History of coronary artery bypass graft 3 VESSELS-2009 AT [place] *FOLLOWS WITH DR. HAMMER Family History Sister Breast cancer Father Alcoholism Mother Heart disease Uncle Heart disease Daughter Family history of diabetes mellitus Other No family history of adverse response to anesthesia Denies family history of Ovarian cancer Prostate cancer Myocardial infarction Colorectal cancer Social History Smoking Status: Former smoker Tobacco Type: Cigarettes Age Started Using Tobacco: 13; Age Quit Using Tobacco: 43; packs per day: 0.75; Second Hand Exposure: No; Do You Dip or Chew Tobacco: No; Hx Alcohol Use: No Hx Substance Use: No Preferred Language: Irish Communication Ability: Effective Visual Impairment: No Limitations Hearing Ability: Normal House Cleaner Required: No Beliefs That Will Affect Care: None and Lutheran marital status: Current Living Situation: Spouse Current Living Situation Comment: single story house current occupational status: retired current occupation: Retired Feels Safe at Home: Yes Childhood Exposure to Second-Hand Smoke: Yes Diet: regular caffeine: Yes Dental Care, Regularly: No Physical Activity Frequency: Does not Exercise Seatbelt Use: always Sunscreen Use: Yes Assistive Devices: Cane Review of Systems 2 Review of Systems: Constitutionalno fever or chills ENTno blurred vision, no double vision, no epistaxis, no sore throat Respiratoryno cough, no wheezing. Dyspnea on exertion Cardiacno palpitations, no chest pain, no syncope Emanuel nausea, vomiting, diarrhea, melena, hematochezia GUno urinary retention, no urinary incontinence, no dysuria, no hematuria Musculoskeletalno joint pain, no muscle tenderness Skinno bruising, no rashes, no pruritus Neurono isolated weakness, no paresthesia, no weakness Psychno depression, no anxiety Physical Exam 2 Physical Exam: General-alert and oriented x3, no fever, no chills HEENT-head atraumatic and normocephalic, pupils equal and reactive to light, extraocular muscles intact Neck-no lymphadenopathy or thyromegaly, trachea midline Chest-bibasilar inspiratory rales. No dullness to percussion. No wheezing Cardiac-regular rate and rhythm, normal S1 and S2 Abdomen-normal bowel sounds, no hepatosplenomegaly Extremities-no cyanosis, clubbing, or edema Neuro-cranial nerves II through XII intact, motor and sensory function within normal limits, strength symmetrical, no focal deficits Psych-normal affect, normal mood Results & Data Results & Data Vital Signs (Past 12 Hours) Vital Signs Temp Pulse Resp BP Pulse Ox O2 Del Method 01/22/25 10:39 61 19 96 01/22/25 10:35 122/53 L 01/22/25 10:24 60 25 H 95 01/22/25 10:06 60 15 94 01/22/25 10:02 59 L 01/22/25 09:23 91 Room Air 01/22/25 09:23 91 Room Air 01/22/25 09:18 Room Air 01/22/25 09:18 36.7 C 64 24 131/73 94 Room Air Laboratory Results 01/22/25 09:10 01/22/25 09:10 Code Status & VTE Plan Code Status Full code PG Care Time/CCT Total # of Minutes Spent Total Time Spent with Patient: Total time spent is greater than 50% in coordination of care (as documented) at patient's floor/unit and/or counseling patient: Coding Level of Care Code 03193 INT INP/OBS CARE 3/75MIN Diagnoses Acute on chronic systolic CHF (congestive heart failure) I50.23 Ischemic cardiomyopathy I25.5 Abnormal EKG R94.31 Type 2 diabetes mellitus E11.9
[2025-01-22] MEDS ORDERED: CARBOHYDRATES FOR HYPOGLYCEMIA PO PRN (12:09)
[2025-01-22] MEDS ORDERED: GLUCAGON FOR INJ 1 MG VIAL SQ PRN (12:09)
[2025-01-22] MEDS ORDERED: GLUCOSE 10 TAB/TUBE PO PRN (12:09)
[2025-01-22] MEDS ORDERED: GLUCOSE 40% GEL 15 GM TUBE PO PRN (12:09)
[2025-01-22] MEDS ORDERED: NITROGLYCERIN SL 0.4 MG/TAB TAB SL PRN (12:09)
[2025-01-22] MEDS ORDERED: ACETAMINOPHEN 325 MG TAB PO PRN (12:09)
[2025-01-22] MEDS ORDERED: ONDANSETRON INJ 2 MG/ML 2 ML VIAL IV PRN (12:09)
[2025-01-22] MEDS ORDERED: ALBUTEROL HFA 8 GM INHALER INH PRN (12:09)
[2025-01-22] MEDS ORDERED: DEXTROSE 50% 50 ML SYRINGE IV PRN (12:09)
[2025-01-22] MEDS: INSULIN ASPART PER UNIT CHARGE SC SCH (13:11)
[2025-01-22] MEDS: CARBIDOPA/LEVODOPA 25/100MG TAB PO SCH (14:13)
--- NOTE | 2025-01-22 15:23 | Cardiology Consultation ---
Date of Consultation January 22, 2025 Assessment & Plan (1) Acute on chronic systolic CHF (congestive heart failure): (2) Ischemic cardiomyopathy: (3) Mitral regurgitation: (4) CAD (coronary artery disease): (5) Pulmonary hypertension: Plan 1. Acute decompensated left ventricular systolic failure: Unfortunately, the patient seems to have an element of pulmonary vascular congestion and volume overload again. No obvious precipitant. Likely chronic problem associated with inadequate dosing of her diuretic. No obvious dietary indiscretions or medical noncompliance. While there is been some concerned about an ischemic etiology for decompensation, she cannot describe any specific event which precipitated her symptoms. It seems that these symptoms progressed gradually over the course of several days rather than an acute event more suggestive of ischemia. She is on an aggressive medical regimen for heart failure to include losartan, metoprolol succinate and Jardiance (recently stopped due to bacteriuria). She will be placed back on an aggressive diuretic regimen for more immediate improvement in symptoms. Will have to decide on a diuretic dose at the time of discharge. 2. Ischemic cardiomyopathy: On therapy as noted above. She is not appear to have good options for revascularization at this point. 3. Coronary artery disease: Status post surgical revascularization quite remotely in 2009. Known occlusion of 2 vein grafts. Percutaneous intervention to both the LAD and circumflex previously. Known occlusion of the proximal LAD stent. Some in-stent restenosis involving the circumflex. Again, poor targets for revascularization at this point. She does have some exertional dyspnea, but this appears to be related to heart failure at this point. I think we will continue aggressive secondary prevention with high-dose atorvastatin and dual antiplatelet therapy. 4. Mitral regurgitation: Nonsevere. 5. Pulmonary hypertension: Secondary to left ventricular failure. Hopefully will improve with diuresis. She has used supplemental oxygen previously with improvement in symptoms. History of Present Illness Reason for Consultation: Congestive heart failure, dyspnea Requesting Physician: Pieter Attending Physician: Fran Stapleton MD History of Present Illness Patient is an 79-year-old woman with a long history of cardiac disease to include coronary artery disease status post percutaneous and surgical revascular ization as well as an ischemic cardiomyopathy and associated congestive heart failure. She was admitted to the hospital few days ago for decompensated systolic heart failure. She underwent a diuresis and adjustment in her medical regimen. She states that at the time of discharge she was not feeling 100% and still had an element of dyspnea. This seemed to have become progressive over a few days. She was advised to increase her outpatient diuretic dose but her symptoms persisted. She reported orthopnea and paroxysmal nocturnal dyspnea. Some increasing abdominal girth but no lower extremity edema. Very short of breath with ambulation. No chest pain at rest or with activity. She has not been aware of any palpitations. Some mild dizziness at times but no presyncope. She denied any specific dietary indiscretion. She is been compliant with her medical therapy. Based on the progressive nature of her symptoms and the fact that she was quite dyspneic this morning she elected to come to the emergency room for an evaluation. She was felt to have congestive heart failure and administered diuretic in the emergency room. Some improvement in her breathing currently. Allergies Allergy/AdvReac Type Severity Reaction Status Date / Time lisinopril Allergy Intermediate Cough Verified 01/21/25 14:06 isosorbide AdvReac Headache Verified 01/21/25 14:06 Home Medications Medication Instructions Recorded Confirmed Type anastrozole 1 mg tablet 1 mg PO QAM 11/08/18 01/22/25 History coenzyme Q10 200 mg capsule 200 mg PO QAM 01/06/20 01/22/25 History vit C 250 mg-vit E 90 mg-zinc 40 1 tab PO BID 09/26/21 01/22/25 History mg-copper 1 [id number]-[id number] capsule (PreserVision AREDS-2) Spacer for Inhaler #1 ea 09/27/21 01/01/25 Rx prevagen 1 tab PO DAILY 05/29/22 01/22/25 History pen needle, diabetic 32 gauge x #400 ea 05/23/23 01/01/25 Rx 5/32" (BD Ultra-Fine Suzette Pen Needle) ipratropium 0.5 mg-albuterol 3 mg 3 ml inhalation Q4H PRN wheezing 07/10/23 01/22/25 Rx (2.5 mg base)/3 mL nebulization #180 mL soln nebulizer and compressor #1 ea 07/10/23 01/01/25 Rx budesonide 0.5 mg/2 mL suspension 0.5 mg (2 mL) inhalation BID #60 mL 07/30/23 01/22/25 Rx for nebulization cyanocobalamin (vitamin B-12) 1,000 mcg PO .3XWK 12/19/23 01/22/25 History 2,500 mcg tablet nitroglycerin 0.4 mg sublingual 0.4 mg sublingual Q5M PRN chest 01/08/24 01/22/25 Rx tablet (Nitrostat) pain #25 tabs albuterol sulfate 90 mcg/actuation 2 puff inhalation Q6H PRN Wheezing 01/17/24 01/22/25 Rx aerosol inhaler #18 grams clopidogrel 75 mg tablet 75 mg PO DAILY #90 tabs 05/28/24 01/22/25 Rx choline [id number] 1 tab PO QAM 05/31/24 01/22/25 History empagliflozin 10 mg tablet 10 mg PO DAILY #30 tabs 06/20/24 01/22/25 Rx (Jardiance) primidone 50 mg tablet (Mysoline) 50 - 100 mg PO DIRECTED 06/20/24 01/22/25 History insulin regular human 100 unit/mL 31 unit subcut BID 09/05/24 01/22/25 History (3 mL) subcutaneous pen (Novolin R FlexPen) carbidopa 25 mg-levodopa 100 mg 1 tab PO TID #90 tabs 10/30/24 01/22/25 Rx tablet metformin 500 mg tablet 500 mg PO BIDWMEAL 90 days #180 12/16/24 01/22/25 Rx tabs blood-glucose sensor (Dexcom G7 #1 ea 01/01/25 01/01/25 Rx Sensor device) losartan 50 mg tablet 50 mg PO DAILY #90 tabs 01/02/25 01/22/25 Rx atorvastatin 80 mg tablet 80 mg PO QPM #90 tabs 01/05/25 01/22/25 Rx blood sugar diagnostic (Accu-Chek #300 ea 01/13/25 Rx Guide test strips) blood-glucose meter (Accu-Chek #1 ea 01/13/25 Rx Guide Glucose Meter) lancets (Accu-Chek Softclix #300 ea 01/13/25 Rx Lancets) metoprolol succinate 200 mg 200 mg PO QAM #90 tabs 01/16/25 01/22/25 Rx tablet,extended release 24 hr fluoxetine 20 mg capsule 20 mg PO DAILY 01/21/25 01/22/25 History furosemide 40 mg tablet 40 mg PO QAM 01/21/25 01/22/25 History alendronate 70 mg tablet 70 mg PO WK 01/22/25 01/22/25 History insulin NPH isoph U-100 human 100 44 - 48 unit subcut BID 01/22/25 01/22/25 History unit/mL (3 mL) subcutaneous pen (Novolin N FlexPen) Patient History Medical History (Updated 01/22/25 @ 11:32 by Fran Stapleton MD) Solitary pulmonary nodule stable, seen by pulm, no further follow up recommended Internal hemorrhoid Seborrheic keratoses NSTEMI (non-ST elevated myocardial infarction) Myocardial Infarction 2009 History of COVID-19 01/2021>MILD SYMPTOMS *RESOLVED Surgical History (Updated 01/06/25 @ 11:56 by Piedad Cronin MD) H/O bilateral mastectomy SURGERY ONLY>(NO LIMB RESTRICTION) NO RECONSTRUCTION H/O lumpectomy LEFT X 2 History of tooth extraction History of surgery Right Axillary Dissection, Bilateral Breast Scar Revision - 12/2017 [facility] History of colonoscopy History of trigger finger right thumb release History of open reduction and internal fixation (ORIF) procedure RT ANKLE History of cataract surgery RT/LEFT History of cardiac cath STENTS 06/2010 [place] [facility] (DIAG AND CX), 1 STENT 04/2011, AND 1 STENT 2013 IN [facility] History of coronary artery bypass graft 3 VESSELS-2009 AT [place] *FOLLOWS WITH DR. HAMMER Family History Sister Breast cancer Father Alcoholism Mother Heart disease Uncle Heart disease Daughter Family history of diabetes mellitus Other No family history of adverse response to anesthesia Denies family history of Ovarian cancer Prostate cancer Myocardial infarction Colorectal cancer Social History Smoking Status: Former smoker Tobacco Type: Cigarettes Age Started Using Tobacco: 13; Age Quit Using Tobacco: 43; packs per day: 0.75; Second Hand Exposure: No; Do You Dip or Chew Tobacco: No; Hx Alcohol Use: No Hx Substance Use: No Preferred Language: Slovak Communication Ability: Effective Visual Impairment: No Limitations Hearing Ability: Normal Lamp Developer Required: No Beliefs That Will Affect Care: None marital status: Current Living Situation: Spouse Current Living Situation Comment: single story house current occupational status: retired current occupation: Retired Feels Safe at Home: Yes Childhood Exposure to Second-Hand Smoke: Yes Diet: regular caffeine: Yes Dental Care, Regularly: No Physical Activity Frequency: Does not Exercise Seatbelt Use: always Sunscreen Use: Yes Assistive Devices: Cane, Denture - Upper and Glasses Review of Systems Review of Systems: Per HPI. Physical Exam Physical Exam: She is alert and oriented x3. Mood affect appear normal. She answered all questions appropriately. HEENT: Sclerae are anicteric. Pupils are equal and reactive to light and accommodation. Extraocular movements were intact. Neuro: Cranial nerves intact Lungs: Some reduced breath sounds with congestion in the left lower lobe. Some basilar rales on the right. No expiratory wheezing. Normal respiratory effort. Cardiac: The rhythm was regular. S1 and S2 were normal. There are no murmurs on examination. The PMI was not markedly displaced on palpation. Abdomen: Distended but nontender. Extremities: Patient has bilateral radial pulses that are equal in intensity. There is no evidence cyanosis or clubbing. There was no evidence of significant peripheral edema bilaterally. Skin: There are no rashes noted on examination today. Results & Data Vital Signs (Past 12 Hours) Vital Signs Temp Pulse Pulse Resp BP BP Pulse Ox 01/22/25 14:53 01/22/25 14:53 36.9 C 74 20 118/56 L 93 01/22/25 11:00 61 23 129/64 96 01/22/25 10:39 61 19 96 01/22/25 10:35 122/53 L 01/22/25 10:24 60 25 H 95 01/22/25 10:06 60 15 94 01/22/25 10:02 59 L 01/22/25 09:23 91 01/22/25 09:23 91 01/22/25 09:18 01/22/25 09:18 36.7 C 64 24 131/73 94 O2 Del Method 01/22/25 14:53 Room Air 01/22/25 14:53 Room Air 01/22/25 11:00 Room Air 01/22/25 10:39 01/22/25 10:35 01/22/25 10:24 01/22/25 10:06 01/22/25 10:02 01/22/25 09:23 Room Air 01/22/25 09:23 Room Air 01/22/25 09:18 Room Air 01/22/25 09:18 Room Air Laboratory Results Abnormal Lab Results 01/22/25 01/22/25 01/22/25 09:10 10:54 12:45 WBC 7.31 RBC 3.42 L Hgb 10.0 L Hct 31.1 L MCV 90.9 MCH 29.2 MCHC 32.2 RDW Std Deviation 51.3 H RDW Coeff of Sarina 15.6 H Plt Count 216 MPV 10.3 Immature Gran % (Auto) 0.4 Neut % (Auto) 75.7 Lymph % (Auto) 13.3 [place] % (Auto) 7.5 Eos % (Auto) 2.6 Baso % (Auto) 0.5 Neut # (Auto) 5.53 Lymph # (Auto) 0.97 L [place] # (Auto) 0.55 Eos # (Auto) 0.19 Baso # (Auto) 0.04 Immature Gran # (Auto) 0.03 Sodium 136 Potassium 4.9 Chloride 100 Carbon Dioxide 27 Anion Gap 9 BUN 43 H Creatinine 1.62 H Est Cr Clr Drug Dosing 25.9 eGFR 31.72 BUN/Creatinine Ratio 26.5 H Glucose 191 H POC Glucose 206 H Calcium 9.0 Magnesium 2.1 Total Bilirubin 0.4 AST 35 ALT 30 Alkaline Phosphatase 75 Troponin I High Sens 107.9 H* 107.5 H* B-Natriuretic Peptide 1944 H Total Protein 7.2 Albumin 3.6 Globulin 3.6 Albumin/Globulin Ratio 1.0 Diagnostic Findings Chest x-ray obtained at time admission revealed small bilateral pleural effusions and pulmonary vascular congestion. Echocardiogram 01/10/2025: Mildly reduced LV systolic function with ejection fraction of 40%. Mild to moderate global hypokinesis. Mild to moderate mitral regurgitation. Elevated right ventricular systolic pressure greater than 60 mmHg. PG Care Time/CCT Total # of Minutes Spent Total Time Spent with Patient: Total time spent is greater than 50% in coordination of care (as documented) at patient's floor/unit and/or counseling patient: Coding Level of Care Code 06135 INT INP/OBS CARE 3/75MIN Diagnoses Acute on chronic systolic CHF (congestive heart failure) I50.23 Ischemic cardiomyopathy I25.5 Mitral regurgitation I34.0 CAD (coronary artery disease) I25.10 Pulmonary hypertension I27.20
--- NOTE | 2025-01-22 15:48 | Electrocardiogram Report ---
Test Reason : Blood Pressure : */* mmHG Vent. Rate : 62 BPM Atrial Rate : 62 BPM P-R Int : 154 ms QRS Dur : 88 ms QT Int : 448 ms P-R-T Axes : 53 54 141 degrees QTcB Int : 454 ms Normal sinus rhythm Abnormal ECG When compared with ECG of 13-Jan-2025 13:43, No significant change was found Confirmed by Kyrie Richardson ([id number]) on 01/22/2025 3:48:34 PM Referred By: Confirmed By: Kyrie Richardson
[2025-01-22] MEDS ORDERED: INSULIN HUMAN NPH SC SCH (21:00)
[2025-01-22] MEDS: ATORVASTATIN 40 MG TAB PO SCH (21:07)
[2025-01-22] MEDS: FUROSEMIDE 40 MG/4 ML VIAL IV SCH (21:09)
[2025-01-22] MEDS: INSULIN HUMAN NPH SC ONE (22:02)
[2025-01-22 22:13] LABS: Appearance Urine Clear (Clear); Bacteria Urine Automated None Seen (None Seen); Cast Urine Automated 0-2 /lpf (0-2); Epithelial Cell Urine Auto 0-2 /hpf (0-2); Glucose Urine UA 2+ (Negative); RBC Urine Automated 0-2 /hpf (0-2)
[2025-01-23 06:50] LABS: Hematocrit (blood only) 29.5 % (37.0-47.0); Hemoglobin 9.6 g/dl (12.0-16.0); Immature Granulocytes # (auto) 0.01 K/uL (0.01-0.20); Immature Granulocytes % (auto) 0.2 %; Mean Corpuscular Hemoglobin 28.8 pg (25.0-34.0); Mean Corpuscular Volume 88.6 fL (80.0-100.0); Platelet Count 211 K/uL (130-400); RDW Standard Deviation 49.7 fL (36.4-46.3); Red Blood Count 3.33 M/uL (4.20-5.40); White Blood Count 6.58 K/ul (4.8-10.8)
[2025-01-23 07:18] LABS: Anion Gap 10.0 (3-11); Blood Urea Nitrogen 40.0 mg/dl (6-23); Calcium 9.1 mg/dl (8.6-10.3); Carbon Dioxide 26.0 mmol/L (21-32); Chloride 102.0 mmol/L (98-107); Creatinine Clr Calc Pharmacy 24.7 ml/min; Glucose 143.0 mg/dl (70-99(Fasting)); Potassium 4.3 mmol/L (3.5-5.1); Sodium 138.0 mmol/L (136-145)
[2025-01-23] MEDS: INSULIN HUMAN NPH SC SCH (08:23)
[2025-01-23] MEDS: ANASTROZOLE 1 MG TAB PO SCH (08:24)
[2025-01-23] MEDS: METOPROLOL SUCC 50MG EXT REL TAB PO SCH (08:24)
[2025-01-23] MEDS: LOSARTAN POTASSIUM 50 MG TAB PO SCH (08:25)
[2025-01-23] MEDS: CLOPIDOGREL BISULFATE 75 MG TAB PO SCH (08:25)
[2025-01-23] MEDS: EMPAGLIFLOZIN 10 MG TAB PO SCH (08:25)
[2025-01-23 12:40] LABS: Iron 35.0 mcg/dl (35-150)
[2025-01-23 12:48] LABS: Reticulocytes # 0.120 10^6/uL (0.020-0.100)
--- NOTE | 2025-01-23 13:19 | Cardiology Progress Note ---
Date of Service January 23, 2025 Assessment & Plan (1) Acute on chronic systolic CHF (congestive heart failure): (2) Ischemic cardiomyopathy: (3) Mitral regurgitation: (4) CAD (coronary artery disease): (5) Pulmonary hypertension: Plan 1. Acute decompensated left ventricular systolic failure: Continuing twice daily intravenous Lasix. She had a good response in the past. Electrolytes and renal function stable. Symptoms somewhat improved. 2. Ischemic cardiomyopathy: On therapy as noted above. She is not appear to have good options for revascularization at this point. I do not think there is a high probability of that her recent decompensation was related to an acute ischemic event. 3. Coronary artery disease: Status post surgical revascularization quite remotely in 2009. Known occlusion of 2 vein grafts. Percutaneous intervention to both the LAD and circumflex previously. Known occlusion of the proximal LAD stent. Some in-stent restenosis involving the circumflex. Again, poor targets for revascularization at this point. She does have some exertional dyspnea, but this appears to be related to heart failure at this point. I think we will continue aggressive secondary prevention with high-dose atorvastatin and dual antiplatelet therapy. 4. Mitral regurgitation: Nonsevere. 5. Pulmonary hypertension: Secondary to left ventricular failure. Hopefully will improve with diuresis. She has used supplemental oxygen previously with improvement in symptoms. When she has had adequate diuresis would seem reasonable to discharge her on a more aggressive diuretic regimen then she had last time. This could include as needed metolazone or a switch to bumetanide. Will try to arrange close follow- up in our heart failure clinic to avoid frequent readmissions. Admission and Anticipated Discharge Date Admission Date: January 22, 2025 Subjective Patient states that her symptoms are improved today. She did not say that she was "back to baseline", but her breathing is definitely better. She did have some element of orthopnea last night. No breathing difficulty at rest. Review of Systems Review of Systems: Per HPI. Physical Exam Physical Exam: She is alert and oriented x3. Mood affect appear normal. She answered all questions appropriately. HEENT: Sclerae are anicteric. Pupils are equal and reactive to light and accommodation. Extraocular movements were intact. Neuro: Cranial nerves intact Lungs: Some reduced breath sounds with congestion in the left lower lobe. Some basilar rales on the right. No expiratory wheezing. Normal respiratory effort. Cardiac: The rhythm was regular. S1 and S2 were normal. There are no murmurs on examination. The PMI was not markedly displaced on palpation. Abdomen: Distended but nontender. Extremities: Patient has bilateral radial pulses that are equal in intensity. There is no evidence cyanosis or clubbing. There was no evidence of significant peripheral edema bilaterally. Skin: There are no rashes noted on examination today. Results & Data Vital Signs (Past 12 Hours) Vital Signs Temp Pulse Pulse Resp BP Pulse Ox O2 Del Method 01/23/25 11:15 36.5 C 64 18 123/79 97 Room Air 01/23/25 07:07 36.6 C 65 18 147/76 H 96 Room Air 01/23/25 06:48 60 01/23/25 03:24 36.7 C 66 18 137/66 96 Room Air Laboratory Results Abnormal Lab Results 01/22/25 01/22/25 01/22/25 15:21 16:34 20:28 WBC RBC Hgb Hct MCV MCH MCHC RDW Std Deviation RDW Coeff of Sarina Plt Count MPV Immature Gran % (Auto) Neut % (Auto) Lymph % (Auto) [place] % (Auto) Eos % (Auto) Baso % (Auto) Reticulocyte % (Auto) Neut # (Auto) Lymph # (Auto) [place] # (Auto) Eos # (Auto) Baso # (Auto) Reticulocyte # Immature Gran # (Auto) Sodium Potassium Chloride Carbon Dioxide Anion Gap BUN Creatinine Est Cr Clr Drug Dosing eGFR BUN/Creatinine Ratio Glucose POC Glucose 161 H 197 H Calcium Iron Troponin I High Sens 104.9 H* Urine Color Urine Appearance Urine pH Ur Specific Purchase Urine Protein Urine Glucose (UA) Urine Ketones Urine Blood Urine Nitrite Urine Bilirubin Urine Urobilinogen Ur Leukocyte Esterase Urine WBC (Auto) Urine RBC (Auto) U Hyaline Cast (Auto) U Epithel Cells (Auto) Urine Bacteria (Auto) Urine Comment 01/22/25 01/22/25 01/23/25 21:37 21:56 01:30 WBC RBC Hgb Hct MCV MCH MCHC RDW Std Deviation RDW Coeff of Sarina Plt Count MPV Immature Gran % (Auto) Neut % (Auto) Lymph % (Auto) [place] % (Auto) Eos % (Auto) Baso % (Auto) Reticulocyte % (Auto) Neut # (Auto) Lymph # (Auto) [place] # (Auto) Eos # (Auto) Baso # (Auto) Reticulocyte # Immature Gran # (Auto) Sodium Potassium Chloride Carbon Dioxide Anion Gap BUN Creatinine Est Cr Clr Drug Dosing eGFR BUN/Creatinine Ratio Glucose POC Glucose Calcium Iron Troponin I High Sens 100.9 H* 97.5 H* Urine Color Yellow Urine Appearance Clear Urine pH 7.0 Ur Specific Purchase 1.008 Urine Protein Negative Urine Glucose (UA) 2+ H Urine Ketones Negative Urine Blood Trace H Urine Nitrite Negative Urine Bilirubin Negative Urine Urobilinogen Negative Ur Leukocyte Esterase 1+ H Urine WBC (Auto) 11-20 H Urine RBC (Auto) 0-2 U Hyaline Cast (Auto) 0-2 U Epithel Cells (Auto) 0-2 Urine Bacteria (Auto) None Seen Urine Comment 01/23/25 01/23/25 01/23/25 06:25 07:10 11:17 WBC 6.58 RBC 3.33 L Hgb 9.6 L Hct 29.5 L MCV 88.6 MCH 28.8 MCHC 32.5 RDW Std Deviation 49.7 H RDW Coeff of Sarina 15.6 H Plt Count 211 MPV 10.3 Immature Gran % (Auto) 0.2 Neut % (Auto) 62.3 Lymph % (Auto) 23.1 [place] % (Auto) 10.0 Eos % (Auto) 3.6 Baso % (Auto) 0.8 Reticulocyte % (Auto) 3.36 H Neut # (Auto) 4.10 Lymph # (Auto) 1.52 [place] # (Auto) 0.66 H Eos # (Auto) 0.24 Baso # (Auto) 0.05 Reticulocyte # 0.120 H Immature Gran # (Auto) 0.01 Sodium 138 Potassium 4.3 Chloride 102 Carbon Dioxide 26 Anion Gap 10 BUN 40 H Creatinine 1.65 H Est Cr Clr Drug Dosing 24.7 eGFR 31.03 BUN/Creatinine Ratio 24.2 H Glucose 143 H POC Glucose 142 H 136 H Calcium 9.1 Iron 35 Troponin I High Sens Urine Color Urine Appearance Urine pH Ur Specific Purchase Urine Protein Urine Glucose (UA) Urine Ketones Urine Blood Urine Nitrite Urine Bilirubin Urine Urobilinogen Ur Leukocyte Esterase Urine WBC (Auto) Urine RBC (Auto) U Hyaline Cast (Auto) U Epithel Cells (Auto) Urine Bacteria (Auto) Urine Comment PG Care Time/CCT Total # of Minutes Spent Total Time Spent with Patient: Total time spent is greater than 50% in coordination of care (as documented) at patient's floor/unit and/or counseling patient: Coding Level of Care Code 75868 SUB INP/OBS CARE MIN Diagnoses Acute on chronic systolic CHF (congestive heart failure) I50.23 Ischemic cardiomyopathy I25.5 Mitral regurgitation I34.0 CAD (coronary artery disease) I25.10 Pulmonary hypertension I27.20
[2025-01-23 13:24] LABS: Folate (Folic Acid),Ser orPlas 12.02 ng/ml (>5.38)
[2025-01-23 13:25] LABS: Vitamin B12 1154.0 pg/ml (180-914)
--- NOTE | 2025-01-23 13:25 | Hospitalist Progress Note ---
Date of Service January 23, 2025 Assessment & Plan (1) Acute on chronic systolic CHF (congestive heart failure): Plan: Recent cardiac echo revealed ejection fraction of 40 to 45%. Improving with parenteral Lasix diuresis. Monitor intake and output. Serial chest x-ray (2) Ischemic cardiomyopathy: Plan: Troponin was elevated on admission. Now trending down. No chest pain. Telemetry. Known history of coronary artery disease with bypass grafting and PCI. Cardiology consultation appreciated. (3) Abnormal EKG: Plan: Lateral ST and T wave changes noted on admission. No chest pain however.. Serial EKGs. Telemetry (4) Type 2 diabetes mellitus: Plan: ADA diet. Continue NPH insulin twice daily. Sliding scale coverage Plan Hopeful discharge to home tomorrow, January 24 Admission and Anticipated Discharge Date Admission Date: January 22, 2025 Subjective Improved. Awake and alert. No distress. Cardiology entry noted. She is diuresing well with the parenteral Lasix. Glucose acceptable at 143. Hemoglobin remains slightly low at 9.6. Serum iron, B12, folate, and reticulocyte count ordered and pending. She does not take a systemic anticoagulant. Cardiology entry noted. Hopefully she can go home tomorrow, January 24, on a higher dose of her oral Lasix Review of Systems 2 Review of Systems: Constitutionalno fever or chills ENTno blurred vision, no double vision, no epistaxis, no sore throat Respiratoryno cough, no wheezing. Dyspnea on exertion Cardiacno palpitations, no chest pain, no syncope Emanuel nausea, vomiting, diarrhea, melena, hematochezia GUno urinary retention, no urinary incontinence, no dysuria, no hematuria Musculoskeletalno joint pain, no muscle tenderness Skinno bruising, no rashes, no pruritus Neurono isolated weakness, no paresthesia, no weakness Psychno depression, no anxiety Physical Exam 2 Physical Exam: General-alert and oriented x3, no fever, no chills HEENT-head atraumatic and normocephalic, pupils equal and reactive to light, extraocular muscles intact Neck-no lymphadenopathy or thyromegaly, trachea midline Chest-bibasilar inspiratory rales. No dullness to percussion. No wheezing Cardiac-regular rate and rhythm, normal S1 and S2 Abdomen-normal bowel sounds, no hepatosplenomegaly Extremities-no cyanosis, clubbing, or edema Neuro-cranial nerves II through XII intact, motor and sensory function within normal limits, strength symmetrical, no focal deficits Psych-normal affect, normal mood Results & Data Results & Data Vital Signs (Past 12 Hours) Vital Signs Temp Pulse Pulse Resp BP Pulse Ox O2 Del Method 01/23/25 11:15 36.5 C 64 18 123/79 97 Room Air 01/23/25 07:07 36.6 C 65 18 147/76 H 96 Room Air 01/23/25 06:48 60 01/23/25 03:24 36.7 C 66 18 137/66 96 Room Air Laboratory Results 01/23/25 06:25 01/23/25 06:25 PG Care Time/CCT Total # of Minutes Spent Total Time Spent with Patient: Total time spent is greater than 50% in coordination of care (as documented) at patient's floor/unit and/or counseling patient: Coding Level of Care Code 15496 SUB INP/OBS CARE 2/35MIN Diagnoses Acute on chronic systolic CHF (congestive heart failure) I50.23 Ischemic cardiomyopathy I25.5 Abnormal EKG R94.31 Type 2 diabetes mellitus E11.9
--- NOTE | 2025-01-23 13:29 | Hospitalist Progress Note ---
Date of Service January 23, 2025 Assessment & Plan (1) Acute on chronic systolic CHF (congestive heart failure): Plan: Recent cardiac echo revealed ejection fraction of 40 to 45%. Much improved with parenteral Lasix diuresis. Monitor intake and output. Serial chest x-ray (2) Ischemic cardiomyopathy: Plan: Troponin was elevated on admission. Now trending down. No chest pain. Telemetry. Known history of coronary artery disease with bypass grafting and PCI. Cardiology consultation appreciated. No intervention planned at this time (3) Abnormal EKG: Plan: Lateral ST and T wave changes noted on admission. No chest pain however.. Serial EKGs. Telemetry (4) Type 2 diabetes mellitus: Plan: ADA diet. Continue NPH insulin twice daily. Sliding scale coverage Plan Hopeful discharge to home tomorrow, January 24 Admission and Anticipated Discharge Date Admission Date: January 22, 2025 Subjective Improving. Alert and oriented. No distress. Brisk diuresis with IV Lasix but intake and output levels have not been kept accurately. She is on room air. Anemia lab workup reveals borderline low iron with normal B12, normal folate, normal reticulocyte count. She is on room air. Troponin level is dropping. Hopefully she can go home tomorrow, January 24, with Lasix 80 mg once daily instead of Lasix 40 mg once daily. Review of Systems 2 Review of Systems: Constitutionalno fever or chills ENTno blurred vision, no double vision, no epistaxis, no sore throat Respiratoryno cough, no wheezing. Dyspnea on exertion has improved Cardiacno palpitations, no chest pain, no syncope Emanuel nausea, vomiting, diarrhea, melena, hematochezia GUno urinary retention, no urinary incontinence, no dysuria, no hematuria Musculoskeletalno joint pain, no muscle tenderness Skinno bruising, no rashes, no pruritus Neurono isolated weakness, no paresthesia, no weakness Psychno depression, no anxiety Physical Exam 2 Physical Exam: General-alert and oriented x3, no fever, no chills HEENT-head atraumatic and normocephalic, pupils equal and reactive to light, extraocular muscles intact Neck-no lymphadenopathy or thyromegaly, trachea midline Chest-bibasilar inspiratory rales have nearly resolved. No dullness to percussion. No wheezing Cardiac-regular rate and rhythm, normal S1 and S2 Abdomen-normal bowel sounds, no hepatosplenomegaly Extremities-no cyanosis, clubbing, or edema Neuro-cranial nerves II through XII intact, motor and sensory function within normal limits, strength symmetrical, no focal deficits Psych-normal affect, normal mood Results & Data Results & Data Vital Signs (Past 12 Hours) Vital Signs Temp Pulse Pulse Resp BP Pulse Ox O2 Del Method 01/23/25 11:15 36.5 C 64 18 123/79 97 Room Air 01/23/25 07:07 36.6 C 65 18 147/76 H 96 Room Air 01/23/25 06:48 60 01/23/25 03:24 36.7 C 66 18 137/66 96 Room Air Laboratory Results 01/23/25 06:25 01/23/25 06:25 PG Care Time/CCT Total # of Minutes Spent Total Time Spent with Patient: Total time spent is greater than 50% in coordination of care (as documented) at patient's floor/unit and/or counseling patient: Coding Level of Care Code 49034 SUB INP/OBS CARE 2/35MIN Diagnoses Acute on chronic systolic CHF (congestive heart failure) I50.23 Ischemic cardiomyopathy I25.5 Abnormal EKG R94.31 Type 2 diabetes mellitus E11.9
--- NOTE | 2025-01-24 08:06 | XRay Report ---
XR chest 1V portable CLINICAL HISTORY: CHF COMPARISON STUDY: 01/22/2025 FINDINGS: Stable CABG. Stable cardiomegaly with mild pulmonary vascular congestion. Stable small bila teral pleural effusions and mild associated lung base consolidation. No pneumothorax seen. IMPRESSION: Stable exam. ACT 112: Negative or not required by law. Electronically signed by: Joshua Singh M.D. 01/24/2025 8:04 AM
[2025-01-24 08:24] LABS: Hematocrit (blood only) 32.5 % (37.0-47.0); Hemoglobin 10.4 g/dl (12.0-16.0); Immature Granulocytes # (auto) 0.01 K/uL (0.01-0.20); Immature Granulocytes % (auto) 0.1 %; Mean Corpuscular Hemoglobin 28.9 pg (25.0-34.0); Mean Corpuscular Volume 90.3 fL (80.0-100.0); Platelet Count 225 K/uL (130-400); RDW Standard Deviation 51.0 fL (36.4-46.3); Red Blood Count 3.60 M/uL (4.20-5.40); White Blood Count 6.71 K/ul (4.8-10.8)
[2025-01-24 08:48] LABS: Anion Gap 10.0 (3-11); Blood Urea Nitrogen 39.0 mg/dl (6-23); Calcium 9.8 mg/dl (8.6-10.3); Carbon Dioxide 29.0 mmol/L (21-32); Chloride 97.0 mmol/L (98-107); Creatinine Clr Calc Pharmacy 21.3 ml/min; Glucose 168.0 mg/dl (70-99(Fasting)); Potassium 4.6 mmol/L (3.5-5.1); Sodium 136.0 mmol/L (136-145)
--- NOTE | 2025-01-24 16:03 | Hospitalist Progress Note ---
Date of Service January 24, 2025 Assessment & Plan (1) Acute on chronic systolic CHF (congestive heart failure): Plan: Recent cardiac echo revealed ejection fraction of 40 to 45%. Much improved with parenteral Lasix diuresis. Her home dose of Lasix will be increased to 80 mg daily at the time of discharge monitor intake and output. Serial chest x-ray (2) Ischemic cardiomyopathy: Plan: Troponin was elevated on admission. Now trending down. No chest pain. Telemetry. Known history of coronary artery disease with bypass grafting and PCI. Cardiology consultation appreciated. No intervention planned at this time (3) Abnormal EKG: Plan: Lateral ST and T wave changes noted on admission. No chest pain however.. Serial EKGs. Telemetry (4) Type 2 diabetes mellitus: Plan: ADA diet. Continue NPH insulin twice daily. Sliding scale coverage Plan Hopeful discharge to home tomorrow, January 25 Admission and Anticipated Discharge Date Admission Date: January 22, 2025 Subjective Alert and oriented. Stable overall. Family is at the bedside. She expressed her wishes to stay until tomorrow, January 25. Hemoglobin is slightly low but stable. Chest x-ray done today, January 24, looks good. Creatinine is up slightly to 1.8. Hopefully home tomorrow, January 25, on Lasix 80 mg daily. She remains on room air Review of Systems 2 Review of Systems: Constitutionalno fever or chills ENTno blurred vision, no double vision, no epistaxis, no sore throat Respiratoryno cough, no wheezing. Dyspnea on exertion has improved Cardiacno palpitations, no chest pain, no syncope Emanuel nausea, vomiting, diarrhea, melena, hematochezia GUno urinary retention, no urinary incontinence, no dysuria, no hematuria Musculoskeletalno joint pain, no muscle tenderness Skinno bruising, no rashes, no pruritus Neurono isolated weakness, no paresthesia, no weakness Psychno depression, no anxiety Physical Exam 2 Physical Exam: General-alert and oriented x3, no fever, no chills HEENT-head atraumatic and normocephalic, pupils equal and reactive to light, extraocular muscles intact Neck-no lymphadenopathy or thyromegaly, trachea midline Chest-bibasilar inspiratory rales have nearly resolved. No dullness to percussion. No wheezing Cardiac-regular rate and rhythm, normal S1 and S2 Abdomen-normal bowel sounds, no hepatosplenomegaly Extremities-no cyanosis, clubbing, or edema Neuro-cranial nerves II through XII intact, motor and sensory function within normal limits, strength symmetrical, no focal deficits Psych-normal affect, normal mood Results & Data Results & Data Vital Signs (Past 12 Hours) Vital Signs Temp Pulse Pulse Resp BP Pulse Ox O2 Del Method 01/24/25 15:38 36.3 C L 64 18 109/68 96 Room Air 01/24/25 11:58 58 L 01/24/25 11:04 36.3 C L 66 18 123/73 98 Room Air 01/24/25 07:08 36.6 C 62 18 130/66 90 Room Air Laboratory Results 01/24/25 07:41 01/24/25 07:41 PG Care Time/CCT Total # of Minutes Spent Total Time Spent with Patient: Total time spent is greater than 50% in coordination of care (as documented) at patient's floor/unit and/or counseling patient: Coding Level of Care Code 71481 SUB INP/OBS CARE 2/35MIN Diagnoses Acute on chronic systolic CHF (congestive heart failure) I50.23 Ischemic cardiomyopathy I25.5 Abnormal EKG R94.31 Type 2 diabetes mellitus E11.9
[2025-01-25 02:20] VITALS: PULSE 60
[2025-01-25 07:19] LABS: Hematocrit (blood only) 31.3 % (37.0-47.0); Hemoglobin 10.2 g/dl (12.0-16.0); Immature Granulocytes # (auto) 0.01 K/uL (0.01-0.20); Immature Granulocytes % (auto) 0.1 %; Mean Corpuscular Hemoglobin 29.0 pg (25.0-34.0); Mean Corpuscular Volume 88.9 fL (80.0-100.0); Platelet Count 229 K/uL (130-400); RDW Standard Deviation 49.4 fL (36.4-46.3); Red Blood Count 3.52 M/uL (4.20-5.40); White Blood Count 6.73 K/ul (4.8-10.8)
[2025-01-25 07:22] VITALS: BP 130/76; RESP 18; TEMP 97.5; O2SAT 95
[2025-01-25 07:47] LABS: Anion Gap 9.0 (3-11); Blood Urea Nitrogen 44.0 mg/dl (6-23); Calcium 9.4 mg/dl (8.6-10.3); Carbon Dioxide 27.0 mmol/L (21-32); Chloride 95.0 mmol/L (98-107); Creatinine Clr Calc Pharmacy 22.7 ml/min; Glucose 102.0 mg/dl (70-99(Fasting)); Potassium 4.4 mmol/L (3.5-5.1); Sodium 131.0 mmol/L (136-145)
--- NOTE | 2025-01-25 10:46 | Discharge Summary ---
Discharge Summary Date of Service January 25, 2025 Principal Dx & Hospital Course #1 = Principal Diagnosis (1) Acute on chronic systolic CHF (congestive heart failure): Recent cardiac echo revealed ejection fraction of 40 to 45%. Much improved with parenteral Lasix diuresis. Her home dose of Lasix will be increased to 80 mg daily at the time of discharge monitor intake and output. Serial chest x-ray (2) Ischemic cardiomyopathy: Troponin was elevated on admission. Now trending down. No chest pain. Telemetry. Known history of coronary artery disease with bypass grafting and PCI. Cardiology consultation appreciated. No intervention planned at this time (3) Abnormal EKG: Lateral ST and T wave changes noted on admission. No chest pain however.. Serial EKGs. Telemetry (4) Type 2 diabetes mellitus: ADA diet. Continue NPH insulin twice daily while hospitalized. She will resume her usual diabetic management at the time of discharge. Sliding scale coverage while hospitalized Plan Home today, January 25 Admission HPI Per Admitting Provider 79-year-old white female who was recently hospitalized with exacerbation of CHF. She has known ischemic cardiomyopathy with ejection fraction approximately 40 to 45%. Previous history of coronary artery bypass grafting with PCI. She presents again with shortness of breath and findings of congestive heart failure. Troponin is elevated and BNP is also elevated. EKG is abnormal with lateral ST and T wave depressions. At the time of my examination she is symptom-free at rest. She is admitted for further evaluation and treatment. She denies feeling palpitations and denies syncope Discharge Exam General-alert and oriented x3, no fever, no chills HEENT-head atraumatic and normocephalic, pupils equal and reactive to light, extraocular muscles intact Neck-no lymphadenopathy or thyromegaly, trachea midline Chest-bibasilar inspiratory rales have nearly resolved. No dullness to percussion. No wheezing Cardiac-regular rate and rhythm, normal S1 and S2 Abdomen-normal bowel sounds, no hepatosplenomegaly Extremities-no cyanosis, clubbing, or edema Neuro-cranial nerves II through XII intact, motor and sensory function within normal limits, strength symmetrical, no focal deficits Psych-normal affect, normal mood Discharge Plan Discharge Items Patient Disposition: Home - Self-Care Reason For Visit: RECURRENT CHF Discharge Diagnosis: Acute on chronic combined systolic and diastolic CHF, elevated troponin and abnormal EKG without acute coronary syndrome Condition on Discharge: Good Activity: Resume your previous activity Non-emergency contact: Primary Care Provider and Spiral Machine Operator Call non-emergency contact if: you have any medication questions and your symptoms worsen Follow-up/Referrals: Piedad Cronin MD [Primary Care Provider] - Diet: Carb Consistent or DM2 and Heart Healthy Addtl Attending Provider Instructions: Lasix has been increased to 80 mg once daily taken in the early afternoon after lunch. All other medications remain the same. A new prescription for Lasix has been sent to your pharmacy at [facility] on [address] Pending Studies at Discharge: No Stand-Alone Forms: My [facility], Smoking Cessation Medications and DC Order Prescriptions: New furosemide [Lasix] 80 mg tablet 80 mg PO DAILY Qty: 30 0RF Continued albuterol sulfate 90 mcg/actuation HFA aerosol inhaler 2 puff INHALATION Q6H PRN (Reason: Wheezing) Qty: 18 3RF clopidogrel 75 mg tablet 75 mg PO DAILY Qty: 90 3RF metformin 500 mg tablet 500 mg PO BIDWMEAL 90 Days Qty: 180 3RF losartan 50 mg tablet 50 mg PO DAILY Qty: 90 3RF atorvastatin 80 mg tablet 80 mg PO QPM Qty: 90 3RF (DME) blood-glucose meter [Accu-Chek Guide Glucose Meter] Misc See Rx Instructions .Route Qty: 1 0RF Rx Instructions: TEST BLOOD SUGAR DAILY (DME) Accu-Chek Guide test strips Strip See Rx Instructions .Route Qty: 300 3RF Rx Instructions: TEST BLOOD SUGAR 3 TIMES DAILY (DME) lancets [Accu-Chek Softclix Lancets] Misc See Rx Instructions .Route Qty: 300 3RF Rx Instructions: TEST BLOOD SUGAR THREE TIMES DAILY metoprolol succinate 200 mg tablet extended release 24 hr 200 mg PO QAM Qty: 90 3RF prevagen 1 tab PO DAILY anastrozole 1 mg tablet 1 mg PO QAM coenzyme Q10 200 mg capsule 200 mg PO QAM (DME) pen needle, diabetic [BD Ultra-Fine Suzette Pen Needle] 32 gauge x 5/32" needle See Dose Instructions .ROUTE .MEDSUPPLY Qty: 400 3RF Rx Instructions: use 4 daily budesonide 0.5 mg/2 mL suspension for nebulization 0.5 mg inhalation BID Qty: 60 1RF cyanocobalamin (vitamin B-12) 2,500 mcg tablet 1,000 mcg PO .3XWK Rx Instructions: 1,000 mcg orally 3x per week; nitroglycerin [Nitrostat] 0.4 mg tablet, sublingual 0.4 mg Sublingual Q5M PRN (Reason: chest pain) Qty: 25 5RF Rx Instructions: PLACE 1 TAB UNDER TONGUE Q5M FOR UP TO 3 DOSES PRN CHEST PAIN. CALL 911 IF PAIN PERSISTS carbidopa-levodopa 25-100 mg tablet 1 tab PO TID Qty: 90 2RF Rx Instructions: take 1/2 tab tid for one week, then take 1 whole tab tid thereafter Novolin R FlexPen 100 unit/mL (3 mL) insulin pen 31 unit subcut BID (DME) Dexcom G7 Sensor Device See Rx Instructions .Route Qty: 1 3RF Rx Instructions: As directed -exchange every 10 days fluoxetine 20 mg capsule 20 mg PO DAILY (DME) nebulizer and compressor Device See Rx Instructions .ROUTE .MEDSUPPLY Qty: 1 0RF Rx Instructions: As directed ipratropium-albuterol 0.5 mg-3 mg(2.5 mg base)/3 mL solution for nebulization 3 ml inhalation Q4H PRN (Reason: wheezing) Qty: 180 1RF Jardiance 10 mg tablet 10 mg PO DAILY Qty: 30 1RF Hold Instructions: Resume on 01/21/25. HOLD until seen by PCP for follow-up primidone [Mysoline] 50 mg tablet 50 - 100 mg PO DIRECTED Rx Instructions: 2 tabs in the AM, 1 tab in the PM orally PreserVision AREDS-2 250-90-40-1 mg Capsule 1 tab PO BID (DME) Spacer for Inhaler Misc See Rx Instructions .Route Qty: 1 0RF Rx Instructions: Use with albuterol inhaler as needed every 2 hours for wheezing. choline [id number] 1 tab PO QAM alendronate 70 mg tablet 70 mg PO WK Rx Instructions: Take 1 tablet by mouth once a week Novolin N FlexPen 100 unit/mL (3 mL) insulin pen 44 - 48 unit subcut BID Rx Instructions: 48 unit in AM; 44 units PM subcutaneously; Discontinued furosemide 40 mg tablet 40 mg PO QAM Discharge Orders: Discharge Order- CHF (Routine); Ordered 01/25/25 Ordered By: Fran Stapleton Admission Data Admit Date/Time: 01/22/25 11:19 Attending Provider: Fran Stapleton Admit Provider: Fran Stapleton Primary Care Provider: Piedad Cronin Other Providers: Ignacio Aguirre; Ady Ricketts; Brayan Parada; Alfredo August; Emmanuel Lima Jr; Josr Rodrigues; Cheryle Robles; Marline Rhoades; Kyrie Venegas; Kyrie Richardson; Ifeoma Fermin; [place] Trent; Nazanin Richards; [place] Delgado; Zackary Dubois; Emiliano Andre; Edgard Noble; Christian Awad; Kamila Funes; Shelli Gonzalez; Fran Stapleton Hospital Stay Data Consultations 01/22/25 10:26 ED Decision to Admit Stat 01/22/25 12:09 Consult Cardiology Routine Pending Results Patient Have Any Pending Studies at Discharge: No Discharge Instructions Given to Patient (Per Discharging Provider) Lasix has been increased to 80 mg once daily taken in the early afternoon after lunch. All other medications remain the same. A new prescription for Lasix has been sent to your pharmacy at [facility] on [facility] Total Time Total Time Spent Total Time Spent (In Minutes): 45 minutes. Total time included patient exam, discharge planning, and medication reconciliation. Coding Level of Care Code 10380 INP/OBS DISCH >30 MIN Diagnoses Acute on chronic systolic CHF (congestive heart failure) I50.23 Ischemic cardiomyopathy I25.5 Abnormal EKG R94.31 Type 2 diabetes mellitus E11.9
== END 2025-01-25 12:21 | disposition home or self-care (01) | DRG 291 ==
LOC: SUATTDRO → ED 09:03 → EDINP 11:19 → 2S 14:29

== ENCOUNTER 2025-01-30 15:45 | Inpatient (IN) ==
[2025-01-30 16:22] LABS: Hematocrit (blood only) 30.9 % (37.0-47.0); Hemoglobin 10.0 g/dl (12.0-16.0); Immature Granulocytes # (auto) 0.02 K/uL (0.01-0.20); Immature Granulocytes % (auto) 0.3 %; Mean Corpuscular Hemoglobin 29.4 pg (25.0-34.0); Mean Corpuscular Volume 90.9 fL (80.0-100.0); Platelet Count 219 K/uL (130-400); RDW Standard Deviation 50.3 fL (36.4-46.3); Red Blood Count 3.40 M/uL (4.20-5.40); White Blood Count 6.86 K/ul (4.8-10.8)
--- NOTE | 2025-01-30 16:41 | XRay Report ---
Chest x-ray, 2 views History: chest pain Comparison: 01/09/2025 Technique: 2 views of the chest, PA and lateral Findings: Small bilateral pleural effusions. The cardiac silhouette appears enlarged. Status post CABG changes. The heart size appears normal. No bony or soft tissue abnormality. Impression: Small pleural effusions and cardiomegaly again seen Electronically signed by Kyrie Madera 01-30-2025 4:41 PM
[2025-01-30 16:58] LABS: INR 1.0 (0.9-1.1); Partial Thromboplastin Time 24 Seconds (21-31); Prothrombin Time 11.0 Seconds (9.0-12.0)
[2025-01-30 17:08] LABS: Alanine Aminotransferase 25.0 U/L (7-52); Albumin Globulin Ratio 1.1 (0.9-2); Albumin Level 3.9 gm/dl (3.4-5.0); Alkaline Phosphatase 77.0 U/L (34-104); Anion Gap 9.0 (3-11); Bilirubin,Total 0.3 mg/dl (0.2-1.0); Blood Urea Nitrogen 54.0 mg/dl (6-23); Calcium 9.4 mg/dl (8.6-10.3); Carbon Dioxide 25.0 mmol/L (21-32); Chloride 99.0 mmol/L (98-107); Creatinine Clr Calc Pharmacy 21.0 ml/min; Globulin 3.4 gm/dl (2.5-4.0); Glucose 51.0 mg/dl (70-99(Fasting)); Potassium 5.3 mmol/L (3.5-5.1); Sodium 133.0 mmol/L (136-145); Total Protein 7.3 gm/dl (6.0-8.3)
--- NOTE | 2025-01-30 18:23 | Emergency Department Note ---
Impression & Plan CHF (congestive heart failure), Elevated troponin, CKD (chronic kidney disease), Dyspnea on minimal exertion ED Provider Note NAME: CARLA MOORE AGE: 79 SEX: F : 1945 ARRIVES VIA: Walk-In INFORMANT: Patient ED PROVIDER(S): Ismael Gil MD CHIEF COMPLAINT: CHF, referred PLAN: Disposition: Admit MEDICAL DECISION MAKING: The patient is a pleasant 79-year-old woman with a past medical history of ischemic cardiomyopathy, hypertension, hyperlipidemia, diabetes, CKD, pulmonary hypertension who presents to the Emergency Department via walk-in accompanied by her for evaluation of continued shortness of breath and fluid retention in setting of being mid to this facility from 01/22-01/25 for CHF. The patient had improvement during her hospitalization but since then reports she has gained 10 pounds of fluid retention. She had follow-up with her primary care provider for further management and recently had change of her Lasix to Bumex but due to acute worsening today presents to emergency department. Patient reports that the majority of her fluid typically is noticeable in her abdomen. She reports shortness of breath with minimal exertion and when she lay flat. She denies chest pain, fevers, productive sputum, GI or symptoms. Of note, the patient did arrive to emergency department during time of high volume, acuity and prolonged emergency department waiting times. Critical pathways initiated from triage. On evaluation the patient is no distress, afebrile with stable vital signs. O2 saturation 98% room air though with dyspnea with minimal exertion. EKG with ST and T wave abnormalities which appear more pronounced from her last EKG though has had similar ST abnormalities in the past. CXR demonstrates congestive change with small pleural effusions bilaterally per my preliminary independent interpretation. WBC and platelets similar limits. H/H similar to prior. Chemistry without metabolic acidosis. Creatinine is 1.97 similar to recent values though increased from prior hospitalization. Glucose initially 51 in triage though patient asymptomatic. This did improve with juice. Initial high-sensitivity troponin 516, increased from recent though similar to prior range values and in setting of the patient's known CHF and fluid retention. BNP 2200, similar to prior range values in setting of the patient's known CHF and CKD. Treatment was initiated with IV Bumex. Given the patient's symptoms in the setting of her fluid retention the patient and her agree with plan for admission for further management. Case was discussed with SABINE Rodriguez hospitalist, who will evaluate the patient for admission. Further management per admitting team. Triage Nursing notes reviewed and agree them. Prior/external medical records reviewed Vital Signs: reviewed Differential diagnosis: Reactive airway disease, pneumonia, pneumothorax, COPD, CHF, infections, cardiac ischemia, pulmonary embolism, musculoskeletal, gastrointestinal, as well as other pathologies. ER treatment provided: See below. Diagnostics interpreted by me: ECG: Normal sinus rhythm, sinus arrhythmia, 65 bpm, nonspecific ST and T wave abnormality, no overt ST elevation or depression. Cardiac Monitoring: An order for continuous cardiac monitoring was placed and demonstrated normal sinus rhythm, sinus arrhythmia, 65 bpm. Laboratory studies: See below Imaging studies: See below Consultation(s): Case was discussed with SABINE Rodriguez hospitalist, who will evaluate the patient for admission. HPI: Per MDM. ROS: See above HPI for pertinent positives & negatives. A total of 10 systems reviewed and were otherwise negative. VITALS:See Below PHYSICAL EXAMINATION: GENERAL: Awake, alert, in no distress HENT: Normocephalic, atraumatic. Oropharynx unremarkable. EYES: Normal conjunctiva. Sclera non-icteric. NECK: Supple. No nuchal rigidity. FROM. No JVD. RESPIRATORY: Diminished breath sounds of bilateral bases and otherwise clear apically. Dyspnea with minimal exertion. CARDIAC: Regular rate, normal rhythm. Extremities warm and well perfused. Pulses equal. ABDOMEN: Soft, non-distended. No tenderness to palpation. No rebound or guarding. No masses. MUSCULOSKELETAL: Chest examination reveals no tenderness. The back is symmetrical on inspection without obvious abnormality. There is no CVA tenderness to palpation. No joint edema. LOWER EXTREMITIES: Calves are equal size bilaterally and non-tender. No edema. No discoloration. NEURO: Normal sensorium. No sensory or motor deficits noted. SKIN: No rash or jaundice noted. Ismael Gil MD Past Med/Surg History Problem List (Updated 01/31/25 @ 02:22 by Ismael Gil MD) Dyspnea on minimal exertion (Acute) CKD (chronic kidney disease) (Acute) Elevated troponin (Acute) CHF (congestive heart failure) (Acute) Acute on chronic heart failure Ischemic cardiomyopathy Hospital discharge follow-up CKD stage 3b, GFR 30-44 ml/min Normocytic anemia Type 2 diabetes mellitus with retinopathy of both eyes, with long-term current use of insulin Hyperlipidemia Hypertension 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 Mitral regurgitation Pulmonary hypertension Overweight (BMI 25.0-29.9) Sensorineural hearing loss of both ears Diabetic nephropathy associated with type 2 diabetes mellitus Glenohumeral arthritis CAD (coronary artery disease) (Chronic) Osteopenia (Acute) Depression (Chronic) Breast cancer (Chronic 07/2017) left breast infiltrating ductal CA dx 07/2017 (ER+/FL+, Her 2 -) and right breast invasive ductal CA dx 11/2017 (ER+/FL+, Her 2 +), s/p elective B/L mastectomy with right axillary dissection (0/7 nodes +), on Arimedex since Jan 2018 Medical History Solitary pulmonary nodule stable, seen by pulm, no further follow up recommended Internal hemorrhoid Seborrheic keratoses NSTEMI (non-ST elevated myocardial infarction) Myocardial Infarction 2010 History of COVID-19 01/2021>MILD SYMPTOMS *RESOLVED Surgical History H/O bilateral mastectomy SURGERY ONLY>(NO LIMB RESTRICTION) NO RECONSTRUCTION H/O lumpectomy LEFT X 2 History of tooth extraction History of surgery Right Axillary Dissection, Bilateral Breast Scar Revision - 12/2017 [facility] History of colonoscopy History of trigger finger right thumb release History of open reduction and internal fixation (ORIF) procedure RT ANKLE History of cataract surgery RT/LEFT History of cardiac cath STENTS 06/2010 IN [facility] (DIAG AND CX), 1 STENT 04/2011, AND 1 STENT 2013 [facility] History of coronary artery bypass graft 3 VESSELS-2009 AT [facility] *FOLLOWS WITH DR. HAMMER Family History Sister Breast cancer Father Alcoholism Mother Heart disease Uncle Heart disease Daughter Family history of diabetes mellitus Other No family history of adverse response to anesthesia Denies family history of Ovarian cancer Prostate cancer Myocardial infarction Colorectal cancer Social History Smoking Status: Former smoker Tobacco Type: Cigarettes Age Started Using Tobacco: 13; Age Quit Using Tobacco: 43; packs per day: 0.75; Smoking End Date: 30 years ago; Second Hand Exposure: No; Do You Dip or Chew Tobacco: No; Tobacco Cessation Education Requested by Patient: No Hx Alcohol Use: No Hx Substance Use: No Preferred Language: Bhutanese Communication Ability: Effective Visual Impairment: No Limitations Hearing Ability: Normal 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: No Beliefs That Will Affect Care: None marital status: Current Living Situation: Spouse Current Living Situation Comment: lives at home with current occupational status: retired current occupation: Retired Other Information That Helps Us Care for You: No Feels Safe at Home: Yes Safety Concerns: Feels Safe At This Time Childhood Exposure to Second-Hand Smoke: Yes Diet: regular caffeine: Yes Dental Care, Regularly: No Physical Activity Frequency: Does not Exercise Seatbelt Use: always Sunscreen Use: Yes Assistive Devices: Cane and Denture - Upper Allergies Allergies Allergy/AdvReac Type Severity Reaction Status Date / Time lisinopril Allergy Intermediate Cough Verified 01/30/25 18:53 isosorbide AdvReac Intermediate Headache Verified 01/30/25 18:53 Home Meds Home Medications Medication Instructions Recorded Confirmed anastrozole 1 mg tablet 1 mg PO QAM 11/08/18 01/30/25 coenzyme Q10 200 mg capsule 200 mg PO QAM 01/06/20 01/30/25 vit C 250 mg-vit E 90 mg-zinc 40 1 tab PO BID 09/26/21 01/30/25 mg-copper 1 [id number] capsule (PreserVision AREDS-2) prevagen 1 tab PO DAILY 05/29/22 01/30/25 cyanocobalamin (vitamin B-12) 1,000 mcg PO 3XWK 12/19/23 01/30/25 2,500 mcg tablet choline [id number] 1 tab PO QAM 05/31/24 01/30/25 primidone 50 mg tablet (Mysoline) See Rx Instructions .Route .COMPLEX 06/20/24 01/30/25 alendronate 70 mg tablet 70 mg PO WK 01/22/25 01/30/25 insulin NPH isoph U-100 human 100 40 unit subcut BID 01/29/25 01/30/25 unit/mL (3 mL) subcutaneous pen (Novolin N FlexPen) insulin regular human 100 unit/mL 26 unit subcut BID 01/29/25 01/30/25 (3 mL) subcutaneous pen (Novolin R FlexPen) Previous Rx's Medication Instructions Recorded Spacer for Inhaler #1 ea 09/27/21 pen needle, diabetic 32 gauge x #400 ea 05/23/23/32" (BD Ultra-Fine Suzette Pen Needle) ipratropium 0.5 mg-albuterol 3 mg 3 ml inhalation Q4H PRN wheezing 07/10/23 (2.5 mg base)/3 mL nebulization #180 mL soln nebulizer and compressor #1 ea 07/10/23 budesonide 0.5 mg/2 mL suspension 0.5 mg (2 mL) inhalation BID #60 mL 07/30/23 for nebulization nitroglycerin 0.4 mg sublingual 0.4 mg sublingual Q5M PRN chest 01/08/24 tablet (Nitrostat) pain #25 tabs albuterol sulfate 90 mcg/actuation 2 puff inhalation Q6H PRN Wheezing 01/17/24 aerosol inhaler #18 grams clopidogrel 75 mg tablet 75 mg PO DAILY #90 tabs 05/28/24 empagliflozin 10 mg tablet 10 mg PO DAILY #30 tabs 06/20/24 (Jardiance) carbidopa 25 mg-levodopa 100 mg 1 tab PO TID #90 tabs 10/30/24 tablet metformin 500 mg tablet 500 mg PO BIDWMEAL 90 days #180 12/16/24 tabs losartan 50 mg tablet 50 mg PO DAILY #90 tabs 01/02/25 atorvastatin 80 mg tablet 80 mg PO QPM #90 tabs 01/05/25 blood sugar diagnostic (Accu-Chek #300 ea 01/13/25 Guide test strips) blood-glucose meter (Accu-Chek #1 ea 01/13/25 Guide Glucose Meter) lancets (Accu-Chek Softclix #300 ea 01/13/25 Lancets) metoprolol succinate 200 mg 200 mg PO QAM #90 tabs 01/16/25 tablet,extended release 24 hr furosemide 80 mg tablet (Lasix) 80 mg PO DAILY #30 tabs 01/25/25 blood-glucose sensor (Dexcom G7 #9 ea 01/28/25 Sensor device) bumetanide 2 mg tablet 2 mg PO BID #30 tabs 01/29/25 Results & Data (ED) Vital Signs Vital Signs - 24 hr 01/30/25 15:53 01/30/25 15:59 01/30/25 17:56 Temperature 36.6 C Temperature Source Temporal Artery Scan Pulse Rate 57 L 57 L Pulse Rate [Apical] Respiratory Rate 18 Respiratory Effort / Characteristics Non-Labored Spontaneous Respiratory Depth Normal Respiratory Pattern Regular Blood Pressure 105/70 Blood Pressure [Left Arm] Blood Pressure Mean 81 Blood Pressure Mean [Left Arm] Pulse Oximetry 98 98 Oxygen Delivery Method Room Air Room Air Sepsis Recent Fever Within 48 Hours No Sepsis New/Unexplained Change in Mental Status N/A Sepsis Action Taken by Nursing No Action Required 01/30/25 18:21 Temperature Temperature Source Pulse Rate Pulse Rate [Apical] 57 L Respiratory Rate 20 Respiratory Effort / Characteristics Respiratory Depth Respiratory Pattern Blood Pressure Blood Pressure [Left Arm] 125/78 Blood Pressure Mean Blood Pressure Mean [Left Arm] 93 Pulse Oximetry 98 Oxygen Delivery Method Room Air Sepsis Recent Fever Within 48 Hours Sepsis New/Unexplained Change in Mental Status Sepsis Action Taken by Nursing Laboratory Data Attestation: I reviewed the patient's lab results. 01/30/25 16:03 01/30/25 16:03 Lab Results 01/30/25 01/30/25 01/30/25 Range/Units 16:03 17:45 17:51 WBC 6.86 (4.8-10.8) K/ul RBC 3.40 L (4.20-5.40) M/uL Hgb 10.0 L (12.0-16.0) g/dl Hct 30.9 L (37.0-47.0) % MCV 90.9 (80.0-100.0) fL MCH 29.4 (25.0-34.0) pg MCHC 32.4 (32.0-36.0) g/dL RDW Std Deviation 50.3 H (36.4-46.3) fL RDW Coeff of Sarina 15.0 H (11.5-14.5) % Plt Count 219 (130-400) K/uL MPV 10.5 (9.4-12.4) fL Immature Gran % (Auto) 0.3 % Neut % (Auto) 65.8 % Lymph % (Auto) 21.6 % Grady % (Auto) 9.2 % Eos % (Auto) 2.5 % Baso % (Auto) 0.6 % Neut # (Auto) 4.52 (1.40-6.50) K/uL Lymph # (Auto) 1.48 (1.20-3.40) K/uL Grady # (Auto) 0.63 H (0.11-0.59) K/uL Eos # (Auto) 0.17 (0.00-0.50) K/uL Baso # (Auto) 0.04 (0.00-0.20) K/uL Immature Gran # (Auto) 0.02 (0.01-0.20) K/uL PT 11.0 (9.0-12.0) Seconds INR 1.0 (0.9-1.1) APTT 24 (21-31) Seconds PTT Ratio 0.9 Sodium 133 L (136-145) mmol/L Potassium 5.3 H (3.5-5.1) mmol/L Chloride 99 (98-107) mmol/L Carbon Dioxide 25 (21-32) mmol/L Anion Gap 9 (3-11) BUN 54 H (6-23) mg/dl Creatinine 1.97 H (0.6-1.2) mg/dl Est Cr Clr Drug Dosing 21.0 ml/min eGFR 25.09 BUN/Creatinine Ratio 27.4 H (10-20) Glucose 51 L* (70-99(Fasting)) mg/dl POC Glucose 67 L* (70-99) mg/dl Calcium 9.4 (8.6-10.3) mg/dl Magnesium 2.3 (1.7-2.4) mg/dl Total Bilirubin 0.3 (0.2-1.0) mg/dl AST 86 H (13-39) U/L ALT 25 (7-52) U/L Alkaline Phosphatase 77 (34-104) U/L Troponin I High Sens 516.2 H* 574.6 H* (0-14) pg/ml B-Natriuretic Peptide 2276 H (0-100) pg/ml Total Protein 7.3 (6.0-8.3) gm/dl Albumin 3.9 (3.4-5.0) gm/dl Globulin 3.4 (2.5-4.0) gm/dl Albumin/Globulin Ratio 1.1 (0.9-2) 11/07/25 Range/Units 18:51 WBC (4.8-10.8) K/ul RBC (4.20-5.40) M/uL Hgb (12.0-16.0) g/dl Hct (37.0-47.0) % MCV (80.0-100.0) fL MCH (25.0-34.0) pg MCHC (32.0-36.0) g/dL RDW Std Deviation (36.4-46.3) fL RDW Coeff of Sarina (11.5-14.5) % Plt Count (130-400) K/uL MPV (9.4-12.4) fL Immature Gran % (Auto) % Neut % (Auto) % Lymph % (Auto) % Grady % (Auto) % Eos % (Auto) % Baso % (Auto) % Neut # (Auto) (1.40-6.50) K/uL Lymph # (Auto) (1.20-3.40) K/uL Grady # (Auto) (0.11-0.59) K/uL Eos # (Auto) (0.00-0.50) K/uL Baso # (Auto) (0.00-0.20) K/uL Immature Gran # (Auto) (0.01-0.20) K/uL PT (9.0-12.0) Seconds INR (0.9-1.1) APTT (21-31) Seconds PTT Ratio Sodium (136-145) mmol/L Potassium (3.5-5.1) mmol/L Chloride (98-107) mmol/L Carbon Dioxide (21-32) mmol/L Anion Gap (3-11) BUN (6-23) mg/dl Creatinine (0.6-1.2) mg/dl Est Cr Clr Drug Dosing ml/min eGFR BUN/Creatinine Ratio (10-20) Glucose (70-99(Fasting)) mg/dl POC Glucose 84 (70-99) mg/dl Calcium (8.6-10.3) mg/dl Magnesium (1.7-2.4) mg/dl Total Bilirubin (0.2-1.0) mg/dl AST (13-39) U/L ALT (7-52) U/L Alkaline Phosphatase (34-104) U/L Troponin I High Sens (0-14) pg/ml B-Natriuretic Peptide (0-100) pg/ml Total Protein (6.0-8.3) gm/dl Albumin (3.4-5.0) gm/dl Globulin (2.5-4.0) gm/dl Albumin/Globulin Ratio (0.9-2) Administered Medications Atorvastatin Calcium (Atorvastatin 40 Mg Tab) 80 mg PO QPM AZEEM Stop: 03/01/25 21:50 Last Admin: 01/30/25 22:38 Dose: 80 mg Documented By: PAYAM Budesonide (Budesonide 0.5 Mg/2 Ml Vial (Pulmicort)) 0.5 mg INH BIDR AZEEM Stop: 03/01/25 21:50 Last Admin: 01/30/25 22:17 Dose: 0.5 mg Documented By: JANIE Carbidopa/Levodopa (Carbidopa/Levodopa 25/100mg Tab) 1 tab PO TID AZEEM Stop: 03/01/25 21:50 Last Admin: 01/30/25 22:38 Dose: 1 tab Documented By: PAYAM Insulin Aspart (Insulin Aspart Per Unit Charge) 0 units SC ACHS AZEEM Stop: 03/01/25 21:50 Last Admin: 01/30/25 22:39 Dose: Not Given Documented By: PAYAM Primidone (Primidone 50 Mg Tab) 50 mg PO PM AZEEM Stop: 03/01/25 21:50 Last Admin: 01/30/25 22:39 Dose: 50 mg Documented By: PAYAM Discontinued Medications Bumetanide 2 mg/ Syringe 8 mls @ 4 mls/min IV ONE ONE Stop: 01/30/25 18:23 Last Admin: 01/30/25 19:02 Dose: 4 mls/min Documented By: amaury Imaging Data Radiologist's Impression: Chest X-Ray 01/30/25 15:59 Chest x-ray, 2 views History: chest pain Comparison: 01/09/2025 Technique: 2 views of the chest, PA and lateral Findings: Small bilateral pleural effusions. The cardiac silhouette appears enlarged. Status post CABG changes. The heart size appears normal. No bony or soft tissue abnormality. Impression: Small pleural effusions and cardiomegaly again seen Electronically signed by Kyrie Madera 01-30-2025 4:41 PM Discharge Plan Visit Data Chief Complaint: Shortness of Breath/Dyspnea Stated Complaint: SOB, ED Provider: Ismael Gil Discharge Problem: CHF (congestive heart failure), Elevated troponin, CKD (chronic kidney disease), Dyspnea on minimal exertion Patient Disposition: Admitted As Inpatient Condition: Fair Discharge Instructions Interventions: ED Discharge Assessment Last Done: 01/30/25 21:10 Discharge Problem: CHF (congestive heart failure) Qualifiers: Heart failure type: systolic Heart failure chronicity: acute on chronic Q ualified Code(s): I50.23 - Acute on chronic systolic (congestive) heart failure CKD (chronic kidney disease) Qualifiers: Chronic kidney disease stage: unspecified stage Qualified Code(s): N18.9 - Chronic kidney disease, unspecified
[2025-01-30] MEDS: BUMETANIDE 2 MG in SYRINGE 0 ML IV ONE (19:02)
--- NOTE | 2025-01-30 19:30 | History & Physical Report ---
Date of Service January 30, 2025 Assessment & Plan (1) Acute on chronic heart failure: (2) CKD stage 3b, GFR 30-44 ml/min: (3) CAD (coronary artery disease): (4) Type 2 diabetes mellitus with retinopathy of both eyes, with long-term current use of insulin: (5) Hypertension: (6) Hyperlipidemia: (7) Breast cancer: Plan 79yo female presenting with progressive dyspnea, abdominal distention and weight gain. Patient with recent hospitalization with acute on chronic CHF with reduc ed EF. She was treated with IV Lasix, discharged on an increased dose of oral Lasix and has since been changed to Bumex. Patient reports approximately 10# weight gain since discharge despite escalating diuretics outpatient. Also with worsening shortness of breath. #Acute on chronic heart failure with reduced EF - last echocardiogram from January 10, 2025 with EF of 40%, mild to modeate global hypokinesis of the LV as well as mild to moderate MR -Observation to PCU -Continue diuresis with Bumex 2mg IV BID -Metolazone 2.5mg po qAM -Monitor strict intake/output -Monitor daily standing weights -BMP q 12 hours to monitor electroltyes and renal function -Continue Metoprolol 200mg po daily -Will hold Losartan for now given renal compromise -Continue Jardiance -Consider addition of mineral corticoid receptor antagonist, consider Entresto #CAD - patient denies chest pain. She has elevation of troponin 574.6, likely secondary to heart failure. EKG with some new TWI present in anterolateral leads -Telemetry monitoring -Continue to trend troponin -Consider repeat echo -Continue Plavix, Atorvastatin #Diabetes - last HgbA1C on 01/29/25 mildly elevated at 8.3, overall improved from prior -Lantus 25u BID -ISS -Goal blood sugar 110 - 160 -Continue Jardiance -Holding Metformin #Hypertension - blood pressure well controlled -Continue Metoprolol -Holding Losartan #Hyperlipidemia -Continue Atorvastatin #Breast cancer - patient with history of breast cancer and mastectomies -Continue anastrozole Heparin 5000u SQ BID Full Code History of Present Illness Chief Complaint: shortness of breath abdominal distention Primary Care Provider: Piedad Cronin MD William Xie is a pleasant 79yo female with history of CAD s/p stenting and CABG x3V, ICH, HFrEF (EF 40% with mild to moderate global hypokinesis of the LV per echo 01/10/2025), HTN, HLP, DM presenting with shortness of breath and abdominal distention. Patient was recently admitted to [facility] from 01/22 - 01/25/2025 after presenting with shortness of breath. She was found to have elevated troponin and BNP. She ws diuresed with Lasix while admitted and discharged on an increased dose of Lasix 80mg daily. Her weight on discharge noted to be 69.3kg. Patient reports she has been taking her lasix as prescribed but continues to have progressive shortness of breath as well as abdominal distention. She was seen by her PCP on 01/29/2025 for followup with complaint of increasing dyspnea - weight at that time 72.6kg. Her Lasix was placed on hold and she was started on Bumex 2mg po BID. Patient reports taking the Bumex but has not noted any increase in her urine output or improvement in her shortness of breath. Khadra tompkins she reports gaining 10 pounds since he discharge on 01/25 with a two pound weight gain since yesterday. She was seen again by her PCP today and was planning to start Metolazone in addition to the Bumex. Weight today noted to be 73kg. Labs obtained today revealed an increase in Cr to 2.14 from 1.77 therefore patient was advised to come to the ER. Patient denies chest pain, cough, palpitations, fever, chills, nausea, vomiting, diarrhea She has stable 3 pillow orthopnea Has some dyspnea at rest as well States her dry weight is approximatey 150-152# In the ER she is afebrile, HD stable ER Course: Bumex 2mg IV Allergies Allergy/AdvReac Type Severity Reaction Status Date / Time lisinopril Allergy Intermediate Cough Verified 01/30/25 18:53 isosorbide AdvReac Intermediate Headache Verified 01/30/25 18:53 Home Medications Medication Instructions Recorded Confirmed Type anastrozole 1 mg tablet 1 mg PO QAM 11/08/18 01/30/25 History coenzyme Q10 200 mg capsule 200 mg PO QAM 01/06/20 01/30/25 History vit C 250 mg-vit E 90 mg-zinc 40 1 tab PO BID 09/26/21 01/30/25 History mg-copper 1 [id number] capsule (PreserVision AREDS-2) Spacer for Inhaler #1 ea 09/27/21 01/30/25 Rx prevagen 1 tab PO DAILY 05/29/22 01/30/25 History pen needle, diabetic 32 gauge x #400 ea 05/23/23 01/30/25 Rx 5/32" (BD Ultra-Fine Suzette Pen Needle) ipratropium 0.5 mg-albuterol 3 mg 3 ml inhalation Q4H PRN wheezing 07/10/23 01/30/25 Rx (2.5 mg base)/3 mL nebulization #180 mL soln nebulizer and compressor #1 ea 07/10/23 01/30/25 Rx budesonide 0.5 mg/2 mL suspension 0.5 mg (2 mL) inhalation BID #60 mL 07/30/23 01/30/25 Rx for nebulization cyanocobalamin (vitamin B-12) 1,000 mcg PO 3XWK 12/19/23 01/30/25 History 2,500 mcg tablet nitroglycerin 0.4 mg sublingual 0.4 mg sublingual Q5M PRN chest 01/08/24 5 Rx tablet (Nitrostat) pain #25 tabs albuterol sulfate 90 mcg/actuation 2 puff inhalation Q6H PRN Wheezing 01/17/24 01/30/25 Rx aerosol inhaler #18 grams clopidogrel 75 mg tablet 75 mg PO DAILY #90 tabs 05/28/24 01/30/25 Rx choline [id number] 1 tab PO QAM 05/31/24 01/30/25 History empagliflozin 10 mg tablet 10 mg PO DAILY #30 tabs 06/20/24 01/30/25 Rx (Jardiance) primidone 50 mg tablet (Mysoline) See Rx Instructions .Route .COMPLEX 06/20/24 01/30/25 History carbidopa 25 mg-levodopa 100 mg 1 tab PO TID #90 tabs 10/30/24 01/30/25 Rx tablet metformin 500 mg tablet 500 mg PO BIDWMEAL 90 days #180 12/16/24 01/30/25 Rx tabs losartan 50 mg tablet 50 mg PO DAILY #90 tabs 01/02/25 01/30/25 Rx atorvastatin 80 mg tablet 80 mg PO QPM #90 tabs 01/05/25 01/30/25 Rx blood sugar diagnostic (Accu-Chek #300 ea 01/13/25 01/30/25 Rx Guide test strips) blood-glucose meter (Accu-Chek #1 ea 01/13/25 01/30/25 Rx Guide Glucose Meter) lancets (Accu-Chek Softclix #300 ea 01/13/25 01/30/25 Rx Lancets) metoprolol succinate 200 mg 200 mg PO QAM #90 tabs 01/16/25 01/30/25 Rx tablet,extended release 24 hr alendronate 70 mg tablet 70 mg PO WK 01/22/25 01/30/25 History furosemide 80 mg tablet (Lasix) 80 mg PO DAILY #30 tabs 01/25/25 01/30/25 Rx blood-glucose sensor (Dexcom G7 #9 ea 01/28/25 01/30/25 Rx Sensor device) bumetanide 2 mg tablet 2 mg PO BID #30 tabs 01/29/25 01/30/25 Rx insulin NPH isoph U-100 human 100 40 unit subcut BID 01/29/25 01/30/25 History unit/mL (3 mL) subcutaneous pen (Novolin N FlexPen) insulin regular human 100 unit/mL 26 unit subcut BID 01/29/25 01/30/25 History (3 mL) subcutaneous pen (Novolin R FlexPen) Past Med/Surg History Problem List (Updated 01/30/25 @ 20:54 by Dominique Noyola DO) Acute on chronic heart failure Ischemic cardiomyopathy Hospital discharge follow-up CKD stage 3b, GFR 30-44 ml/min Normocytic anemia Type 2 diabetes mellitus with retinopathy of both eyes, with long-term current use of insulin Hyperlipidemia Hypertension 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 Mitral regurgitation Pulmonary hypertension Overweight (BMI 25.0-29.9) Sensorineural hearing loss of both ears Diabetic nephropathy associated with type 2 diabetes mellitus Glenohumeral arthritis CAD (coronary artery disease) (Chronic) Osteopenia (Acute) Depression (Chronic) Breast cancer (Chronic 07/2017) left breast infiltrating ductal CA dx 07/2017 (ER+/MD+, Her 2 -) and right breast invasive ductal CA dx 11/2017 (ER+/MD+, Her 2 +), s/p elective B/L mastectomy with right axillary dissection (0/7 nodes +), on Arimedex since Jan 2018 Medical History Solitary pulmonary nodule stable, seen by pulm, no further follow up recommended Internal hemorrhoid Seborrheic keratoses NSTEMI (non-ST elevated myocardial infarction) Myocardial Infarction 2009 History of COVID-19 01/2021>MILD SYMPTOMS *RESOLVED Surgical History H/O bilateral mastectomy SURGERY ONLY>(NO LIMB RESTRICTION) NO RECONSTRUCTION H/O lumpectomy LEFT X 2 History of tooth extraction History of surgery Right Axillary Dissection, Bilateral Breast Scar Revision - 12/2017 [facility] History of colonoscopy History of trigger finger right thumb release History of open reduction and internal fixation (ORIF) procedure RT ANKLE History of cataract surgery RT/LEFT History of cardiac cath STENTS 06/2010 [facility] (DIAG AND CX), 1 STENT 04/2011, AND 1 STENT 2013 [place] [facility] History of coronary artery bypass graft 3 [facility]-2009 [facility] *FOLLOWS WITH DR. HAMMER Family History Sister Breast cancer Father Alcoholism Mother Heart disease Uncle Heart disease Daughter Family history of diabetes mellitus Other No family history of adverse response to anesthesia Denies family history of Ovarian cancer Prostate cancer Myocardial infarction Colorectal cancer Social History Smoking Status: Former smoker Tobacco Type: Cigarettes Age Started Using Tobacco: 13; Age Quit Using Tobacco: 43; packs per day: 0.75; Second Hand Exposure: No; Do You Dip or Chew Tobacco: No; Hx Alcohol Use: No Hx Substance Use: No Preferred Language: Tamazight Communication Ability: Effective Visual Impairment: No Limitations Hearing Ability: Normal Patient Flow Coordinator Required: No Beliefs That Will Affect Care: None marital status: Current Living Situation: Spouse Current Living Situation Comment: single story house current occupational status: retired current occupation: Retired Feels Safe at Home: Yes Childhood Exposure to Second-Hand Smoke: Yes Diet: regular caffeine: Yes Dental Care, Regularly: No Physical Activity Frequency: Does not Exercise Seatbelt Use: always Sunscreen Use: Yes Assistive Devices: Cane and Glasses Review of Systems Review of Systems: All systems reviewed & are unremarkable except as noted in HPI & below Physical Exam Physical Exam: General: patient resting comfortably, NAD, non-toxic in appearance, AA&O x 4 Skin: warm, dry, intact, no rashes or lesions HEENT: NC/AT, PERRL, EOMI, anicteric sclera, conjunctiva without injection, external ear normal to inspection and nontender, nares patent, moist mucus membranes, dentition intact, no oropharyngeal lesions, neck supple, trachea midline, no LAD, no thyromegaly, no JVD Heart: +S1/S2, regular, no m/r/g Lungs: equal air entry bilaterally, crackles in the bases bilaterally, no wheezing Abd: +BS, soft, mildly distended, non-tender, no masses/organomegaly/ascites Ext: warm, 2+ pulses in UE/LE bilaterally, no clubbing/cyanosis or edema Neuro: nonfocal, patient AA&O x 4, speech intact, no facial droop, moving all extremities on command with equal strength 5/5 Results & Data Results & Data Vital Signs (Past 12 Hours) Vital Signs Temp Pulse Pulse Resp BP BP Pulse Ox 01/30/25 18:21 57 L 20 125/78 98 01/30/25 17:56 57 L 01/30/25 15:59 98 01/30/25 15:53 36.6 C 57 L 18 105/70 98 O2 Del Method 01/30/25 18:21 Room Air 01/30/25 17:56 01/30/25 15:59 Room Air 01/30/25 15:53 Room Air Laboratory Results Laboratory Results WBC 6.86 K/ul (4.8-10.8) 01/30/25 16:03 RBC 3.40 M/uL (4.20-5.40) L 01/30/25 16:03 Hgb 10.0 g/dl (12.0-16.0) L 01/30/25 16:03 Hct 30.9 % (37.0-47.0) L 01/30/25 16:03 MCV 90.9 fL (80.0-100.0) 01/30/25 16:03 MCH 29.4 pg (25.0-34.0) 01/30/25 16:03 MCHC 32.4 g/dL (32.0-36.0) 01/30/25 16:03 RDW Std Deviation 50.3 fL (36.4-46.3) H 01/30/25 16:03 RDW Coeff of Sarina 15.0 % (11.5-14.5) H 01/30/25 16:03 Plt Count 219 K/uL (130-400) 01/30/25 16:03 MPV 10.5 fL (9.4-12.4) 01/30/25 16:03 Immature Gran % (Auto) 0.3 % 01/30/25 16:03 Neut % (Auto) 65.8 % 01/30/25 16:03 Lymph % (Auto) 21.6 % 01/30/25 16:03 Wilson % (Auto) 9.2 % 01/30/25 16:03 Eos % (Auto) 2.5 % 01/30/25 16:03 Baso % (Auto) 0.6 % 01/30/25 16:03 Neut # (Auto) 4.52 K/uL (1.40-6.50) 01/30/25 16:03 Lymph # (Auto) 1.48 K/uL (1.20-3.40) 01/30/25 16:03 Wilson # (Auto) 0.63 K/uL (0.11-0.59) H 01/30/25 16:03 Eos # (Auto) 0.17 K/uL (0.00-0.50) 01/30/25 16:03 Baso # (Auto) 0.04 K/uL (0.00-0.20) 01/30/25 16:03 Immature Gran # (Auto) 0.02 K/uL (0.01-0.20) 01/30/25 16:03 PT 11.0 Seconds (9.0-12.0) 01/30/25 16:03 INR 1.0 (0.9-1.1) 01/30/25 16:03 APTT 24 Seconds (21-31) 01/30/25 16:03 PTT Ratio 0.9 01/30/25 16:03 Sodium 133 mmol/L (136-145) L 01/30/25 16:03 Potassium 5.3 mmol/L (3.5-5.1) H 01/30/25 16:03 Chloride 99 mmol/L (98-107) 01/30/25 16:03 Carbon Dioxide 25 mmol/L (21-32) 01/30/25 16:03 Anion Gap 9 (3-11) 01/30/25 16:03 BUN 54 mg/dl (6-23) H 01/30/25 16:03 Creatinine 1.97 mg/dl (0.6-1.2) H 01/30/25 16:03 Est Cr Clr Drug Dosing 21.0 ml/min 01/30/25 16:03 eGFR 25.09 01/30/25 16:03 BUN/Creatinine Ratio 27.4 (10-20) H 01/30/25 16:03 Glucose 51 mg/dl (70-99(Fasting)) L* 01/30/25 16:03 POC Glucose 84 mg/dl (70-99) 01/30/25 18:51 Calcium 9.4 mg/dl (8.6-10.3) 01/30/25 16:03 Magnesium 2.3 mg/dl (1.7-2.4) 01/30/25 16:03 Total Bilirubin 0.3 mg/dl (0.2-1.0) 01/30/25 16:03 AST 86 U/L (13-39) H 01/30/25 16:03 ALT 25 U/L (7-52) 01/30/25 16:03 Alkaline Phosphatase 77 U/L (34-104) 01/30/25 16:03 Troponin I High Sens 574.6 pg/ml (0-14) H* 01/30/25 17:45 B-Natriuretic Peptide 2276 pg/ml (0-100) H 01/30/25 17:45 Total Protein 7.3 gm/dl (6.0-8.3) 01/30/25 16:03 Albumin 3.9 gm/dl (3.4-5.0) 01/30/25 16:03 Globulin 3.4 gm/dl (2.5-4.0) 01/30/25 16:03 Albumin/Globulin Ratio 1.1 (0.9-2) 01/30/25 16:03 Impressions Chest X-Ray 01/30/25 15:59 Chest x-ray, 2 views History: chest pain Comparison: 01/09/2025 Technique: 2 views of the chest, PA and lateral Findings: Small bilateral pleural effusions. The cardiac silhouette appears enlarged. Status post CABG changes. The heart size appears normal. No bony or soft tissue abnormality. Impression: Small pleural effusions and cardiomegaly again seen Electronically signed by Kyrie Madera 01-30-2025 4:41 PM ECG Additional Comments: EKG per independent review with nSR at 65bpm, normal axis, TWI present in anterior and lateral leads PG Care Time/CCT Total # of Minutes Spent Total Time Spent with Patient: Total time spent is greater than 50% in coordination of care (as documented) at patient's floor/unit and/or counseling patient: Coding Level of Care Code 80404 INT INP/OBS CARE 3/75MIN Diagnoses Acute on chronic heart failure I50.9 CKD stage 3b, GFR 30-44 ml/min N18.32 CAD (coronary artery disease) I25.10 Type 2 diabetes mellitus with retinopathy of both eyes, with long-term current use of insulin E11.319; Z79.4 Hypertension I10 Hyperlipidemia E78.5 Breast cancer C50.919
[2025-01-30 19:52] LABS: Magnesium 2.3 mg/dl (1.7-2.4)
[2025-01-30] MEDS ORDERED: GLUCOSE 10 TAB/TUBE PO PRN (21:51)
[2025-01-30] MEDS ORDERED: DOCUSATE SODIUM 100 MG CAP PO PRN (21:51)
[2025-01-30] MEDS ORDERED: ALBUTEROL HFA 8 GM INHALER INH PRN (21:51)
[2025-01-30] MEDS ORDERED: ONDANSETRON INJ 2 MG/ML 2 ML VIAL IV PRN (21:51)
[2025-01-30] MEDS ORDERED: DEXTROSE 50% 50 ML SYRINGE IV PRN (21:51)
[2025-01-30] MEDS ORDERED: CARBOHYDRATES FOR HYPOGLYCEMIA PO PRN (21:51)
[2025-01-30] MEDS ORDERED: GLUCAGON FOR INJ 1 MG VIAL SQ PRN (21:51)
[2025-01-30] MEDS ORDERED: GLUCOSE 40% GEL 15 GM TUBE PO PRN (21:51)
[2025-01-30] MEDS: BUDESONIDE 0.5 MG/2 ML VIAL (PULMICORT) INH SCH (22:17)
[2025-01-30] MEDS: ATORVASTATIN 40 MG TAB PO SCH (22:38)
[2025-01-30] MEDS: CARBIDOPA/LEVODOPA 25/100MG TAB PO SCH (22:38)
[2025-01-30] MEDS: PRIMIDONE 50 MG TAB PO SCH (22:39)
[2025-01-30] MEDS: INSULIN ASPART PER UNIT CHARGE SC SCH (22:39)
[2025-01-31 06:55] LABS: Hematocrit (blood only) 30.5 % (37.0-47.0); Hemoglobin 9.7 g/dl (12.0-16.0); Mean Corpuscular Hemoglobin 29.0 pg (25.0-34.0); Mean Corpuscular Volume 91.3 fL (80.0-100.0); Platelet Count 207 K/uL (130-400); RDW Standard Deviation 50.1 fL (36.4-46.3); Red Blood Count 3.34 M/uL (4.20-5.40); White Blood Count 8.04 K/ul (4.8-10.8)
[2025-01-31] MEDS: ALBUT/IPRATROP 3MG/0.5MG NEB 3 ML VIAL INH PRN (07:16)
[2025-01-31 07:23] LABS: Anion Gap 9.0 (3-11); Blood Urea Nitrogen 51.0 mg/dl (6-23); Calcium 9.3 mg/dl (8.6-10.3); Carbon Dioxide 25.0 mmol/L (21-32); Chloride 99.0 mmol/L (98-107); Creatinine Clr Calc Pharmacy 23.3 ml/min; Glucose 52.0 mg/dl (70-99(Fasting)); Potassium 4.7 mmol/L (3.5-5.1); Sodium 133.0 mmol/L (136-145)
[2025-01-31] MEDS: ANASTROZOLE 1 MG TAB PO SCH (08:37)
[2025-01-31] MEDS: BUMETANIDE 2 MG in SYRINGE 0 ML IV SCH (08:37)
[2025-01-31] MEDS: PRIMIDONE 50 MG TAB PO SCH (08:38)
[2025-01-31] MEDS: CLOPIDOGREL BISULFATE 75 MG TAB PO SCH (08:38)
[2025-01-31] MEDS: LANTUS PER UNIT CHARGE SQ SCH (08:41)
[2025-01-31] MEDS: METOPROLOL SUCC 50MG EXT REL TAB PO SCH (08:41)
[2025-01-31] MEDS: EMPAGLIFLOZIN 10 MG TAB PO SCH (08:41)
[2025-01-31] MEDS: HEPARIN SOD 5,000 UNIT/0.5 ML VIAL SQ SCH (08:48)
--- NOTE | 2025-01-31 17:20 | Hospitalist Progress Note ---
Date of Service January 31, 2025 Assessment & Plan (1) Acute on chronic heart failure: Plan: RESOLVING slowly with patient reporting that she feels "10% better today (01/31/2025) than yesterday (01/30/2025), when I came into the hospital. My legs were never swollen; the 10 pounds of weight gain in the past week all went to my belly. It will take a while to get the 10 pounds of weight gain off my belly. I am not in a barreto to go home until all the extra weight is gone. I normally weigh 150-152 pounds at home and sleep on 3 pillows. I was at [facility] recently (01/22/2025 - 01/25/2025), and I came back last night on 01/30/2025 for the same problem of shortness of breath and weight gain in my belly. I weighed 162.4 pounds last night. This morning, I weighed 158.8 pounds. So, I am still at least 6 pounds over my dry weight at home still." Continue medical management of acute exacerbation of chronic systolic and diastolic CHF with reduced LVEF 40% and grade II LV diastolic dysfunction (as noted on 01/10/2025, 11:45am TTE, CARDS Dr. Brayan Parada) which includes hospital-started bumex 2mg IV bid (9:00am, 5:00pm), hospital-started metolazone 2.5mg PO qam, home-scheduled empagliflozin 10mg PO daily, and home-scheduled metoprolol succinate 200mg PO qam. Holding off home-scheduled losartan 50mg PO daily given potential for this medication to cause further renal embarrassment in this patient admitted on 01/30/2025 with a secondary diagnosis of acute kidney injury with admission creatinine 1.96, GFR 25.24 mL/min (01/30/2025, 10:51am), superimposed on CKD stage III with baseline creatinine range, 1.25- 1.45 (06/04/2024 - 01/09/2025). (2) Acute kidney injury: Plan: Acute kidney injury with admission creatinine 1.96, GFR 25.24 mL/min (01/30/2025, 10:51am), superimposed on CKD stage III with baseline creatinine range, 1.25-1.45 (06/04/2024 - 01/09/2025). cf., creatinine 1.96, GFR 25.24 (01/30/2025, 10:51am). cf., creatinine 1.97, GFR 25.09 (01/30/2025, 4:03pm). cf., creatinine 1.80, GFR 27.96 (01/31/2025, 6:27am). cf., creatinine 2.07,GFR 23.64 (01/31/2025, 5:08pm). Etiology of acute kidney injury is most probably due to patient's home-scheduled losartan 50mg PO daily, home-scheduled lasix 80mg PO daily, and/or home- scheduled bumex 2mg PO bid. Subsequently, patient is being held off all 3 home- scheduled medications. In their place(s), patient is receiving hospital-started bumex 2mg IV bid (9:00am, 5:00pm), hospital-started metolazone 2.5mg PO qam, which may also potentiate acute kidney injury, but which is considered a necessary evil when trying to improve patient's complaint of progressive SOB/ESPINO and unintentional weight gain of 10 pounds in the abdomen over the past week since patient was last discharged from [facility] on 01/25/2025, and where patient had been hospitalized for acute exacerbation of chronic systolic and diastolic CHF with reduced LVEF 40% and grade II LV diastolic dysfunction (as noted on 01/10/2025, 11:45am TTE, CARDS Dr. Brayan Parada) since admission date 01/22/2025. Etiology of CKD stage 3 is due to (a) long-standing HTN on losartan 50mg PO daily, metoprolol succinate 200mg PO qam, lasix 80mg PO daily, and bumex 2mg PO bid, and (b) long-standing insulin dependent DM2 with HbA1c 8.3% (01/29/2025, 3:00pm) on NPH insulin 40 units SQ bid, regular insulin 26 units SQ bid, and metformin 500mg PO bid. (3) CKD stage 3b, GFR 30-44 ml/min: Plan: See bullet #2 above. (4) Acute hyperkalemia: Plan: cf., Benito 4.8 mmol/L (01/30/2025, 10:51am). cf., K 5.3 mmol/L (01/30/2025, 4:03pm). cf., K 4.7 mmol/L (01/31/2025, 6:27am). cf., K 5.8 mmol/L (01/31/2025, 5:08pm). Etiology of acute hyperkalemia is most probably due to acute kidney injury: cf., creatinine 1.96, GFR 25.24 (01/30/2025, 10:51am). cf., creatinine 1.97, GFR 25.09 (01/30/2025, 4:03pm). cf., creatinine 1.80, GFR 27.96 (01/31/2025, 6:27am). cf., creatinine 2.07,GFR 23.64 (01/31/2025, 5:08pm). Start sodium zirconium cyclosilicate 10g PO tid (01/31/2025, 6:00pm) and check repeat K level in the 02/01/2025 am. (5) CAD (coronary artery disease): Plan: Continue secondary prophylaxis against CAD utilizing home-scheduled atorvastatin 80mg PO qpm and plavix 75mg PO daily. (6) Type 2 diabetes mellitus with retinopathy of both eyes, with long-term current use of insulin: Plan: Long-standing glycemic control is poor with HbA1c 8.3% (01/29/2025, 3:00pm). Short-term glycemic control is poor with: glucose 67, anion gap 9, CO2 2 6(01/30/2025, 10:51am). glucose 51, anion gap 9, CO2 25 (01/30/2025, 4:03pm). glucose 52, anion gap 9, CO2 25 (01/31/2025, 6:27am). glucose 64 (01/31/2025, 7:26am). glucose 73 (01/31/2025, 7:27am). glucose 231 (01/31/2025, 11:13am). glucose 129 (01/31/2025, 4:22pm). glucose 189 (01/31/2025, 5:08pm). Continue carbohydrate consistent diet, empagliflozin 10mg PO daily, aspart insulin sliding scale qac + qhs, and lantus 25 units SQ bid. (7) Hypertension: Plan: Well-controlled with BP 133/64 on 2 gram Na diet, metoprolol succinate 200mg PO qam, bumex 2mg IV bid (9:00am, 5:00pm), metolazone 2.5mg PO qam. (8) Breast cancer: Plan: s/p bilateral mastectomies. No chemo. No XRT. Continue neoadjuvant anastrozole 1mg PO qam. (9) Chronic hyponatremia: Plan: cf., Na 132 mmol/L (01/30/2025, 10:51am). cf., Na 133 mmol/L (01/30/2025, 4:03pm). cf., Na 133 mmol/L (01/31/2025, 6:27am). cf., Na 130 mmol/L (01/31/2025, 5:08pm). cf., baseline Na range, 127-135 mmol/L (08/29/2017 - 01/25/2025). 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 Brayan Parada). Patient remains asymptomatic with this mild degree of chronic euvolemic hyponatremia. Hence, I have opted to observe this laboratory anomaly without need for fluid restriction on 01/31/2025. (10) Essential tremor: Plan: Asymptomatic on home-scheduled primidone 100mg PO qam and primidone 50mg PO qpm. (11) Parkinsonism: Plan: Asymptomatic on sinemet 25/100mg PO tid. No hand tremors, no cogwheel rigidity, no masked facies on 01/31/2025. (12) Elevated troponin: Plan: cf., Troponin-I #1 516.2 pg/mL (01/30/2025, 4:03pm). cf., Troponin-I #2 574.6 pg/mL (01/30/2025, 5:45pm). cf., Troponin-I #3 487.2 pg/mL (01/31/2025, 12:08am). cf., Troponin-I #4 437.4 pg/mL (01/31/2025, 6:27am). cf., EKG (01/30/2025, 4:02pm): NSR @ 65, MT 168, QTC 457, q in V1, V2; TWI in I, aVL, V2, V4-V6; no acute ST depressions/elevations (by my review). cf., EKG (01/22/2025, 9:08am): NSR @ 62, MT 154, QTC 454, q in V1, V2; TWI in I, aVL; no acute ST depressions/elevations (by my review). Etiology of nominal troponin elevation is due to demand ischemia, which in turn, is due to: (a) acute exacerbation of chronic systolic and diastolic CHF with reduced LVEF 40% and grade II LV diastolic dysfunction (as noted on 01/10/2025, 11:45am TTE, CARDS Dr. Brayan Parada); (b) acute kidney injury with admission creatinine 1.96, GFR 25.24 mL/min (01/30/2025, 10:51am), superimposed on CKD stage III with baseline creatinine range, 1.25-1.45 (06/04/2024 - 01/09/2025). Hence, I have opted to observe this laboratory anomaly of nominal troponin elevation without need for telemetry or further evaluation while patient remains in [facility]. (13) Transaminitis: Plan: cf., AST 67, ALT 22, ALK PHOS 75, total bili 0.4 (01/30/2025, 10:51am). cf., AST 86, ALT 25, ALK PHOS 77, total bili 0.3 (01/30/2025, 4:03pm). cf., baseline AST range, 20-37 (04/23/2017 - 01/22/2025). Etiology of acute elevation in AST levels remains unclear, but may be due to home-scheduled atorvastatin 80mg PO qpm. I will check repeat LFT in the 02/01/2025 am and continue home-scheduled atorvastatin 80mg PO qpm unless AST levels increase to 5 times the upper limit of normal AST levels (cf., upper limit of normal AST range is 39 U/L). Plan 79yo female presenting with progressive dyspnea, abdominal distention and weight gain. Patient with recent hospitalization with acute on chronic CHF with reduced EF. She was treated with IV Lasix, discharged on an increased dose of oral Lasix and has since been changed to Bumex. Patient reports approximately 10# weight gain since discharge despite escalating diuretics outpatient. Also with worsening shortness of breath. #Acute on chronic heart failure with reduced EF - last echocardiogram from January 10, 2025 with EF of 40%, mild to modeate global hypokinesis of the LV as well as mild to moderate MR -Observation to PCU -Continue diuresis with Bumex 2mg IV BID -Metolazone 2.5mg po qAM -Monitor strict intake/output -Monitor daily standing weights -BMP q 12 hours to monitor electroltyes and renal function -Continue Metoprolol 200mg po daily -Will hold Losartan for now given renal compromise -Continue Jardiance -Consider addition of mineral corticoid receptor antagonist, consider Entresto #CAD - patient denies chest pain. She has elevation of troponin 574.6, likely secondary to heart failure. EKG with some new TWI present in anterolateral leads -Telemetry monitoring -Continue to trend troponin -Consider repeat echo -Continue Plavix, Atorvastatin #Diabetes - last HgbA1C on 01/29/25 mildly elevated at 8.3, overall improved from prior -Lantus 25u BID -ISS -Goal blood sugar 110 - 160 -Continue Jardiance -Holding Metformin #Hypertension - blood pressure well controlled -Continue Metoprolol -Holding Losartan #Hyperlipidemia -Continue Atorvastatin #Breast cancer - patient with history of breast cancer and mastectomies -Continue anastrozole Heparin 5000u SQ BID Full Code Admission and Anticipated Discharge Date Admission Date: January 30, 2025 Subjective "I feel about 10% better today (01/31/2025) than yesterday (01/30/2025), when I came into the hospital. My legs were never swollen; the 10 pounds of weight gain in the past week all went to my belly. It will take a while to get the 10 pounds of weight gain off my belly. I am not in a barreto to go home until all the extra weight is gone. I normally weigh 150-152 pounds at home and sleep on 3 pillows. I was at [facility] recently (01/22/2025 - 01/25/2025), and I came back last night on 01/30/2025 for the same problem of shortness of breath and weight gain in my belly. I weighed 162.4 pounds last night. This morning, I weighed 158.8 pounds. So, I am still at least 6 pounds over my dry weight at home still." Review of Systems Constitutional: Positive for 10 pounds of unintentional weight gain in abdomen despite full compliance with lasix 80mg PO daily and bumex 2mg PO bid at home. Positive for shortness of breath at rest and dyspnea with exertion. Negative for antecedent/coincident fevers, chills, diaphoresis, cough, wheeze, sore throat, hemoptysis, chest pains, palpitations, pleurisy, nausea, vomiting, diarrhea, abdominal pain, pelvic pain, hematemesis, hematochezia, melena, hematuria, dysuria, frequency, urgency, headaches, dizziness, lightheadedness, visual changes, hearing changes, weakness, falls, syncope, trauma, travel history, sick contacts, or food/drug ingestions novel or new. All other review of systems are reported as negative by the patient on 01/31/2025. Physical Exam Constitutional: General: Comfortable, cooperative and coherent. Wide awake and alert. Not confused, lethargic, or obtunded. Patient speaks in complete, fluent, and articulate sentences, without pause, interruption, cough, or wheeze. HEENT: NC/AT. EOMI. PERRL. No nystagmus, gaze paresis, anisocoria, miosis, mydriasis, chemosis, hyphema, scleral injection, conjunctivitis, pterygium, facial droop, dysarthria, or pronator drift. No otorrhea. No rhinorrhea. Neck: Supple, no stridor, bruit, or goiter. Jugular venous pressure 3 cm above the sternal angle of Madhu, which is typically 5 cm above the right atrium. Lymph: No anterior/posterior cervical lymphadenopathy, supraclavicular/infraclavicular lymphadenopathy, axilla/epitrochlear/inguinal lymphadenopathy. Chest: Symmetric rise and fall with respirations. Non-tender to palpation. Heart: RRR, S1 and S2. No S3 or S4 summation gallop. No tripartite friction rub. No murmur. Lungs: Clear to auscultation and percussion. No audible expiratory wheeze, egophony, pectoriloquy, increase in tactile fremitus, or flatness/dullness to percussion at the bases. Abd: Soft, non-tender, non-distended. Bowel sounds auscultated in all 4 quadrants. No rebound, guarding, Blanca's sign, or organomegaly. Ext: No clubbing, cyanosis, or edema. 2+ pedal pulses bilaterally. Skin: No decubitus ulcer or enanthem or exanthem. Neuro: Alert and oriented in regards to person, place, time, and situation. No tremors, tics, or myoclonus. DTR+. 5/5 motor strength in all 4 extremities, both proximally and distally. Urology: No aguilar catheter. No purewick. No urethral discharge. Results & Data Results & Data Vital Signs (Past 12 Hours) Vital Signs Temp Pulse Pulse Resp BP Pulse Ox O2 Del Method 01/31/25 16:15 36.9 C 62 18 133/64 96 Room Air 01/31/25 13:59 71 01/31/25 11:43 36.9 C 58 L 18 150/87 H 96 Room Air 01/31/25 08:15 Room Air 01/31/25 07:55 36.5 C 58 L 18 125/77 98 Room Air 01/31/25 07:16 56 L 16 97 Room Air 01/31/25 07:00 54 L Laboratory Results WBC 6.86, Hb 10.0, MCV 90.9, MCHC 32.4, platelet 219 (01/30/2025, 4:03pm). WBC 8.04, Hb 9.7, MCV 91.3, MCHC 31.8, platelet 207 (01/31/2025, 6:27am). Na 132, K 4.8, BUN 53, creatinine 1.96, GFR 25.24, glucose 67, anion gap 9, CO2 26, Ca 9.2, AST 67, ALT 22, ALK PHOS 75, total bili 0.4 (01/30/2025, 10:51am). Na 133, K 5.3, BUN 54, creatinine 1.97, GFR 25.09, glucose 51, anion gap 9, CO2 25, Ca 9.4, AST 86, ALT 25, ALK PHOS 77, total bili 0.3 (01/30/2025, 4:03pm). Na 133, K 4.7, BUN 51, creatinine 1.80, GFR 27.96, glucose 52, anion gap 9, CO2 25, Ca 9.3 (01/31/2025, 6:27am). glucose 64 (01/31/2025, 7:26am). glucose 73 (01/31/2025, 7:27am). glucose 231 (01/31/2025, 11:13am). glucose 129 (01/31/2025, 4:22pm). Na 130, K 5.8, BUN 61, creatinine 2.07,GFR 23.64, glucose 189, anion gap 9, CO2 27, Ca 9.4 (01/31/2025, 5:08pm). HbA1c 8.3% (01/29/2025, 3:00pm). Troponin-I #1 516.2 pg/mL (01/30/2025, 4:03pm). Troponin-I #2 574.6 pg/mL (01/30/2025, 5:45pm). Troponin-I #3 487.2 pg/mL (01/31/2025, 12:08am). Troponin-I #4 437.4 pg/mL (01/31/2025, 6:27am). BNP 2276 pg/mL (01/30/2025, 5:45pm). Diagnostic Findings PA/lateral CXR (01/30/2025, 3:59pm): Cardiomegaly, bilateral effusions, pulmonary vascular congestion; no infiltrate or pneumothorax (by my review). Portable CXR (01/24/2025, 7:00am): Cardiomegaly, bilateral effusions, pulmonary vascular congestion; no infiltrate or pneumothorax (by my review). EKG (01/30/2025, 4:02pm): NSR @ 65, MT 168, QTC 457, q in V1, V2; TWI in I, aVL, V2, V4-V6; no acute ST depressions/elevations (by my review). EKG (01/22/2025, 9:08am): NSR @ 62, MT 154, QTC 454, q in V1, V2; TWI in I, aVL; no acute ST depressions/elevations (by my review). TTE (01/10/2025, 11:45am): 1. LVEF 40%. Mild concentric LVH. Mild-moderate global hypokinesis of LV. 2. RV grossly normal size. 3. LA normal size. RA normal size. 4. No . No AR. 5. PV not well visualized. 6. No MS. Mild-moderate MR. 7. Mild TR. RVSP > 60 mm Hg. 8. Aortic root normal size. 9. No pericardial effusion. 10.Grade II LV diastolic dysfunction with E/E' ratio 21.7. (as per CARDS Dr. Brayan Parada). PG Care Time/CCT Total # of Minutes Spent Total Time Spent with Patient: Total time spent is greater than 50% in coordination of care (as documented) at patient's floor/unit and/or counseling patient: Coding Level of Care Code 53931 SUB INP/OBS CARE 2/35MIN Diagnoses Acute on chronic combined systolic and diastolic heart failure I50.43 Heart failure type: combined systolic and diastolic Acute kidney injury N17.9 CKD stage 3b, GFR 30-44 ml/min N18.32 Acute hyperkalemia E87.5 CAD (coronary artery disease) I25.10 Type 2 diabetes mellitus with retinopathy of both eyes, with long-term current use of insulin E11.319; Z79.4 Hypertension I10 Breast cancer C50.919 Chronic hyponatremia E87.1 Essential tremor G25.0 Parkinsonism G20.C Elevated troponin R79.89 Transaminitis R74.01 (1) Acute on chronic heart failure Heart failure type: combined systolic and diastolic Qualified Code(s): I50.43 - Acute on chronic combined systolic (congestive) and diastolic (congestive) heart failure
[2025-01-31 17:43] LABS: Anion Gap 9.0 (3-11); Blood Urea Nitrogen 61.0 mg/dl (6-23); Calcium 9.4 mg/dl (8.6-10.3); Carbon Dioxide 27.0 mmol/L (21-32); Chloride 94.0 mmol/L (98-107); Creatinine Clr Calc Pharmacy 20.3 ml/min; Glucose 189.0 mg/dl (70-99(Fasting)); Potassium 5.8 mmol/L (3.5-5.1); Sodium 130.0 mmol/L (136-145)
[2025-01-31] MEDS: SODIUM ZIRCONIUM CYCLOSILICATE 10 GM PACKET PO SCH (18:00)
[2025-02-01 07:08] LABS: Alanine Aminotransferase 12.0 U/L (7-52); Anion Gap 10.0 (3-11); Bilirubin,Total 0.5 mg/dl (0.2-1.0); Blood Urea Nitrogen 54.0 mg/dl (6-23); Calcium 9.8 mg/dl (8.6-10.3); Carbon Dioxide 28.0 mmol/L (21-32); Chloride 96.0 mmol/L (98-107); Creatinine Clr Calc Pharmacy 21.5 ml/min; Glucose 104.0 mg/dl (70-99(Fasting)); Potassium 4.6 mmol/L (3.5-5.1); Sodium 134.0 mmol/L (136-145)
[2025-02-01 07:09] LABS: Albumin Level 4.1 gm/dl (3.4-5.0); Alkaline Phosphatase 72.0 U/L (34-104); Total Protein 7.4 gm/dl (6.0-8.3)
[2025-02-01] MEDS: ACETAMINOPHEN 325 MG TAB PO PRN (08:37)
[2025-02-01] MEDS: INSULIN ASPART PER UNIT CHARGE SC STA (09:12)
--- NOTE | 2025-02-01 15:52 | Hospitalist Progress Note ---
Date of Service February 01, 2025 Assessment & Plan (1) Acute on chronic heart failure: Plan: RESOLVING very well with patient reporting on 02/01/2025: "Overall, I feel a lot better today (02/01/2025) than when I came into the hospital (01/30/2025). My legs have never been swollen; the 10 pounds of weight gain in the past week all went to my belly. I normally weigh 150-152 pounds at home and sleep on 3 pillows. I was at [facility] recently (01/22/2025 - 01/25/2025), and I came on 01/30/2025 for the same problem of shortness of breath and weight gain in my belly. I weighed 162.4 pounds last night on 01/30/2025 (admission date). Yesterday morning, I weighed 158.8 pounds (01/31/2025). This morning, I weighed 153.3 pounds (02/01/2025). So, I am 1-2 pounds over my dry weight at home; I can see the difference. My belly is a lot smaller today (02/01/2025) than on 01/30/2025 (admission date)." Continue medical management of acute exacerbation of chronic systolic and diastolic CHF with reduced LVEF 40% and grade II LV diastolic dysfunction (as noted on 01/10/2025, 11:45am TTE, CARDS Dr. Brayan Parada) which includes hospital-started bumex 2mg IV bid (9:00am, 5:00pm), hospital-started metolazone 2.5mg PO qam, home-scheduled empagliflozin 10mg PO daily, and home-scheduled metoprolol succinate 200mg PO qam. Holding off home-scheduled losartan 50mg PO daily given potential for this medication to cause further renal embarrassment in this patient admitted on 01/30/2025 with a secondary diagnosis of acute kidney injury with admission creatinine 1.96, GFR 25.24 mL/min (01/30/2025, 10:51am), superimposed on CKD stage III with baseline creatinine range, 1.25- 1.45 (06/04/2024 - 01/09/2025). (2) Acute kidney injury: Plan: Acute kidney injury with admission creatinine 1.96, GFR 25.24 mL/min (01/30/2025, 10:51am), superimposed on CKD stage III with baseline creatinine range, 1.25-1.45 (06/04/2024 - 01/09/2025). cf., creatinine 1.96, GFR 25.24 (01/30/2025, 10:51am). cf., creatinine 1.97, GFR 25.09 (01/30/2025, 4:03pm). cf., creatinine 1.80, GFR 27.96 (01/31/2025, 6:27am). cf., creatinine 2.07,GFR 23.64 (01/31/2025, 5:08pm). cf., creatinine 1.92,GFR 25.87 (02/01/2025, 5:54am). Etiology of acute kidney injury is most probably due to patient's home-scheduled losartan 50mg PO daily, home-scheduled lasix 80mg PO daily, and/or home- scheduled bumex 2mg PO bid. Subsequently, patient is being held off all 3 home- scheduled medications. In their place(s), patient is receiving hospital-started bumex 2mg IV bid (9:00am, 5:00pm), hospital-started metolazone 2.5mg PO qam, which may also potentiate acute kidney injury, but which is considered a necessary evil when trying to improve patient's complaint of progressive SOB/ESPINO and unintentional weight gain of 10 pounds in the abdomen over the past week since patient was last discharged from [facility] on 01/25/2025, and where patient had been hospitalized for acute exacerbation of chronic systolic and diastolic CHF with reduced LVEF 40% and grade II LV diastolic dysfunction (as noted on 01/10/2025, 11:45am TTE, CARDS Dr. Brayan Parada) since admission date 01/22/2025. Etiology of CKD stage 3 is due to (a) long-standing HTN on losartan 50mg PO daily, metoprolol succinate 200mg PO qam, lasix 80mg PO daily, and bumex 2mg PO bid, and (b) long-standing insulin dependent DM2 with HbA1c 8.3% (01/29/2025, 3:00pm) on NPH insulin 40 units SQ bid, regular insulin 26 units SQ bid, and metformin 500mg PO bid. (3) CKD stage 3b, GFR 30-44 ml/min: Plan: See bullet #2 above. (4) Acute hyperkalemia: Plan: cf., K 4.8 mmol/L (01/30/2025, 10:51am). cf., K 5.3 mmol/L (01/30/2025, 4:03pm). cf., K 4.7 mmol/L (01/31/2025, 6:27am). cf., K 5.8 mmol/L (01/31/2025, 5:08pm). Etiology of acute hyperkalemia is most probably due to acute kidney injury: cf., creatinine 1.96, GFR 25.24 (01/30/2025, 10:51am). cf., creatinine 1.97, GFR 25.09 (01/30/2025, 4:03pm). cf., creatinine 1.80, GFR 27.96 (01/31/2025, 6:27am). cf., creatinine 2.07,GFR 23.64 (01/31/2025, 5:08pm). Subsequently, patient received sodium zirconium cyclosilicate 10g PO tid (01/31/2025, 6:00pm;02/01/2025, 7:46am, 11:58a). Subsequently, acute hyperkalemia RESOLVED with post-treatment K 4.6 mmol/L ( 02/01/2025, 5:54am). Subsequently, patient will receive 3 more doses of sodium zirconium cyclosilicate 10g PO tid (02/01/2025 pm - 02/02/2025 am), and I check repeat K level in the 02/02/2025 am. (5) CAD (coronary artery disease): Plan: Continue secondary prophylaxis against CAD utilizing home-scheduled atorvastatin 80mg PO qpm and plavix 75mg PO daily. (6) Type 2 diabetes mellitus with retinopathy of both eyes, with long-term current use of insulin: Plan: Long-standing glycemic control is poor with HbA1c 8.3% (01/29/2025, 3:00pm). Short-term glycemic control is poor with: glucose 67, anion gap 9, CO2 26 (01/30/2025, 10:51am). glucose 51, anion gap 9, CO2 25 (01/30/2025, 4:03pm). glucose 52, anion gap 9, CO2 25 (01/31/2025, 6:27am). glucose 64 (01/31/2025, 7:26am). glucose 73 (01/31/2025, 7:27am). glucose 231 (01/31/2025, 11:13am). glucose 129 (01/31/2025, 4:22pm). glucose 189 (01/31/2025, 5:08pm). glucose 104, anion gap 10, CO2 28 (02/01/2025, 5:54am). glucose 118 (02/01/2025, 7:19am). glucose 344 (02/01/2025, 8:53am). glucose 366 (02/01/2025, 8:54am). glucose 164 (02/01/2025, 11:32am). Subsequently, patient received aspart insulin 8 units SQ x 1 dose (02/01/2025, 9:12am) with decrease in POC glucose level, as shown above. Continue carbohydrate consistent diet, empagliflozin 10mg PO daily, aspart insulin sliding scale qac + qhs, and lantus 25 units SQ bid. (7) Hypertension: Plan: Well-controlled with BP 103/59 (02/01/2025, 1:37pm) on 2 gram Na diet, metoprolol succinate 200mg PO qam, bumex 2mg IV bid (9:00am, 5:00pm), metolazone 2.5mg PO qam. (8) Breast cancer: Plan: s/p bilateral mastectomies. No chemo. No XRT. Continue neoadjuvant anastrozole 1mg PO qam. (9) Chronic hyponatremia: Plan: cf., Na 132 mmol/L (01/30/2025, 10:51am). cf., Na 133 mmol/L (01/30/2025, 4:03pm). cf., Na 133 mmol/L (01/31/2025, 6:27am). cf., Na 130 mmol/L (01/31/2025, 5:08pm). cf., Na 134 mmol/L (02/01/2025, 5:54am). cf., baseline Na range, 127-135 mmol/L (08/29/2017 - 01/25/2025). 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 Brayan Parada). Patient remains asymptomatic with this mild degree of chronic euvolemic hyponatremia. Hence, I have opted to observe this laboratory anomaly without need for fluid restriction on 01/31/2025 - 02/01/2025. (10) Essential tremor: Plan: Asymptomatic on home-scheduled primidone 100mg PO qam and primidone 50mg PO qpm. (11) Parkinsonism: Plan: Asymptomatic on sinemet 25/100mg PO tid. No hand tremors, no cogwheel rigidity, no masked facies on 01/31/2025. (12) Elevated troponin: Plan: cf., Troponin-I #1 516.2 pg/mL (01/30/2025, 4:03pm). cf., Troponin-I #2 574.6 pg/mL (01/30/2025, 5:45pm). cf., Troponin-I #3 487.2 pg/mL (01/31/2025, 12:08am). cf., Troponin-I #4 437.4 pg/mL (01/31/2025, 6:27am). cf., Troponin-I #5 195.2 pg/mL (02/01/2025, 9:03am). cf., EKG (01/30/2025, 4:02pm): NSR @ 65, MT 168, QTC 457, q in V1, V2; TWI in I, aVL, V2, V4-V6; no acute ST depressions/elevations (by my review). cf., EKG (01/22/2025, 9:08am): NSR @ 62, MT 154, QTC 454, q in V1, V2; TWI in I, aVL; no acute ST depressions/elevations (by my review). Etiology of nominal troponin elevation is due to demand ischemia, which in turn, is due to: (a) acute exacerbation of chronic systolic and diastolic CHF with reduced LVEF 40% and grade II LV diastolic dysfunction (as noted on 01/10/2025, 11:45am TTE, CARDS Dr. Brayan Parada); (b) acute kidney injury with admission creatinine 1.96, GFR 25.24 mL/min (01/30/2025, 10:51am), superimposed on CKD stage III with baseline creatinine range, 1.25-1.45 (06/04/2024 - 01/09/2025). Hence, I have opted to observe this laboratory anomaly of nominal troponin elevation without need for telemetry or further evaluation while patient remains in [facility]. (13) Transaminitis: Plan: cf., AST 67, ALT 22, ALK PHOS 75, total bili 0.4 (01/30/2025, 10:51am). cf., AST 86, ALT 25, ALK PHOS 77, total bili 0.3 (01/30/2025, 4:03pm). cf., AST 38, ALT 12, ALK PHOS 72, total bili 0.5 (02/01/2025, 5:54am). cf., baseline AST range, 20-37 (04/23/2017 - 01/22/2025). Etiology of acute elevation in AST levels remains unclear and is probably NOT due to home-scheduled atorvastatin 80mg PO qpm. Acute elevation in AST level has RESOLVED spontaneously, as shown above, and hence, I have opted to continue home-scheduled atorvastatin 80mg PO qpm on 01/31/2025 and on 02/01/2025. Plan 79yo female presenting with progressive dyspnea, abdominal distention and weight gain. Patient with recent hospitalization with acute on chronic CHF with reduced EF. She was treated with IV Lasix, discharged on an increased dose of o ral Lasix and has since been changed to Bumex. Patient reports approximately 10# weight gain since discharge despite escalating diuretics outpatient. Also with worsening shortness of breath. #Acute on chronic heart failure with reduced EF - last echocardiogram from January 10, 2025 with EF of 40%, mild to modeate global hypokinesis of the LV as well as mild to moderate MR -Observation to PCU -Continue diuresis with Bumex 2mg IV BID -Metolazone 2.5mg po qAM -Monitor strict intake/output -Monitor daily standing weights -BMP q 12 hours to monitor electroltyes and renal function -Continue Metoprolol 200mg po daily -Will hold Losartan for now given renal compromise -Continue Jardiance -Consider addition of mineral corticoid receptor antagonist, consider Entresto #CAD - patient denies chest pain. She has elevation of troponin 574.6, likely secondary to heart failure. EKG with some new TWI present in anterolateral leads -Telemetry monitoring -Continue to trend troponin -Consider repeat echo -Continue Plavix, Atorvastatin #Diabetes - last HgbA1C on 01/29/25 mildly elevated at 8.3, overall improved from prior -Lantus 25u BID -ISS -Goal blood sugar 110 - 160 -Continue Jardiance -Holding Metformin #Hypertension - blood pressure well controlled -Continue Metoprolol -Holding Losartan #Hyperlipidemia -Continue Atorvastatin #Breast cancer - patient with history of breast cancer and mastectomies -Continue anastrozole Heparin 5000u SQ BID Full Code Admission and Anticipated Discharge Date Admission Date: January 31, 2025 Subjective "I had some numbness in both my forearms and some pain in the middle of my back earlier this morning, right after the nurse took my sugar level and saw that it was high at 366 mg/dL (02/01/2025, 8:54am). I ate some oatmeal and and orange and coffee, that's all. The numbness and the pain in the middle of my back did not last long. I am fine now." "Overall, I feel a lot better today (02/01/2025) than when I came into the hospital (01/30/2025). My legs have never been swollen; the 10 pounds of weight gain in the past week all went to my belly. I normally weigh 150-152 pounds at home and sleep on 3 pillows. I was at [facility] recently (01/22/2025 - 01/25/2025), and I came on 01/30/2025 for the same problem of shortness of breath and weight gain in my belly. I weighed 162.4 pounds last night on 01/30/2025 (admission date). Yesterday morning, I weighed 158.8 pounds (01/31/2025). This morning, I weighed 153.3 pounds (02/01/2025). So, I am 1-2 pounds over my dry weight at home; I can see the difference. My belly is a lot smaller today (02/01/2025) than on 01/30/2025 (admission date)." Review of Systems Constitutional: Positive for 10 pounds of unintentional weight gain in abdomen despite full compliance with lasix 80mg PO daily and bumex 2mg PO bid at home. Positive for shortness of breath at rest and dyspnea with exertion. Negative for antecedent/coincident fevers, chills, diaphoresis, cough, wheeze, sore throat, hemoptysis, chest pains, palpitations, pleurisy, nausea, vomiting, diarrhea, abdominal pain, pelvic pain, hematemesis, hematochezia, melena, hematuria, dysuria, frequency, urgency, headaches, dizziness, lightheadedness, visual changes, hearing changes, weakness, falls, syncope, trauma, travel history, sick contacts, or food/drug ingestions novel or new. All other review of systems are reported as negative by the patient on 02/01/2025. Physical Exam Constitutional: General: Comfortable, cooperative and coherent. Wide awake and alert. Not confused, lethargic, or obtunded. Patient speaks in complete, fluent, and articulate sentences, without pause, interruption, cough, or wheeze. HEENT: NC/AT. EOMI. PERRL. No nystagmus, gaze paresis, anisocoria, miosis, mydriasis, chemosis, hyphema, scleral injection, conjunctivitis, pterygium, facial droop, dysarthria, or pronator drift. No otorrhea. No rhinorrhea. Neck: Supple, no stridor, bruit, or goiter. Jugular venous pressure 3 cm above the sternal angle of Madhu, which is typically 5 cm above the right atrium. Lymph: No anterior/posterior cervical lymphadenopathy, supraclavicular/infraclavicular lymphadenopathy, axilla/epitrochlear/inguinal lymphadenopathy. Chest: Symmetric rise and fall with respirations. Non-tender to palpation. Heart: RRR, S1 and S2. No S3 or S4 summation gallop. No tripartite friction rub. No murmur. Lungs: Clear to auscultation and percussion. No audible expiratory wheeze, egophony, pectoriloquy, increase in tactile fremitus, or flatness/dullness to percussion at the bases. Abd: Soft, non-tender, non-distended. Bowel sounds auscultated in all 4 quadrants. No rebound, guarding, Blanca's sign, or organomegaly. Ext: No clubbing, cyanosis, or edema. 2+ pedal pulses bilaterally. Skin: No decubitus ulcer or enanthem or exanthem. Neuro: Alert and oriented in regards to person, place, time, and situation. No tremors, tics, or myoclonus. DTR+. 5/5 motor strength in all 4 extremities, both proximally and distally. Urology: No aguilar catheter. No purewick. No urethral discharge. Results & Data Results & Data Vital Signs (Past 12 Hours) Vital Signs Temp Pulse Pulse Resp BP Pulse Ox O2 Del Method 02/01/25 13:37 59 L 02/01/25 11:41 37.0 C 63 20 103/59 L 96 Room Air 02/01/25 08:35 77 20 115/56 L 93 Room Air 02/01/25 07:45 36.6 C 63 20 146/72 H 93 Room Air 02/01/25 07:14 68 18 93 Room Air 02/01/25 07:00 64 02/01/25 04:06 36.6 C 58 L 17 129/68 95 Room Air Laboratory Results WBC 6.86, Hb 10.0, MCV 90.9, MCHC 32.4, platelet 219 (01/30/2025, 4:03pm). WBC 8.04, Hb 9.7, MCV 91.3, MCHC 31.8, platelet 207 (01/31/2025, 6:27am). Na 132, K 4.8, BUN 53, creatinine 1.96, GFR 25.24, glucose 67, anion gap 9, CO2 26, Ca 9.2, AST 67, ALT 22, ALK PHOS 75, total bili 0.4 (01/30/2025, 10:51am). Na 133, K 5.3, BUN 54, creatinine 1.97, GFR 25.09, glucose 51, anion gap 9, CO2 25, Ca 9.4, AST 86, ALT 25, ALK PHOS 77, total bili 0.3 (01/30/2025, 4:03pm). Na 133, K 4.7, BUN 51, creatinine 1.80, GFR 27.96, glucose 52, anion gap 9, CO2 25, Ca 9.3 (01/31/2025, 6:27am). glucose 64 (01/31/2025, 7:26am). glucose 73 (01/31/2025, 7:27am). glucose 231 (01/31/2025, 11:13am). glucose 129 (01/31/2025, 4:22pm). Na 130, K 5.8, BUN 61, creatinine 2.07,GFR 23.64, glucose 189, anion gap 9, CO2 27, Ca 9.4 (01/31/2025, 5:08pm). Na 134, K 4.6, BUN 54, creatinine 1.92,GFR 25.87, glucose 104, anion gap 10, CO2 28, Ca 9.8 (02/01/2025, 5:54am). glucose 118 (02/01/2025, 7:19am). glucose 344 (02/01/2025, 8:53am). glucose 366 (02/01/2025, 8:54am). glucose 164 (02/01/2025, 11:32am). HbA1c 8.3% (01/29/2025, 3:00pm). Troponin-I #1 516.2 pg/mL (01/30/2025, 4:03pm). Troponin-I #2 574.6 pg/mL (01/30/2025, 5:45pm). Troponin-I #3 487.2 pg/mL (01/31/2025, 12:08am). Troponin-I #4 437.4 pg/mL (01/31/2025, 6:27am). Troponin-I #5 195.2 pg/mL (02/01/2025, 9:03am). BNP 2276 pg/mL (01/30/2025, 5:45pm). D-dimer 1,010 ug/L (02/01/2025, 9:03am)(Of note, I ordered this test to address patient's complaints of transient mid back pain on 02/01/2025, 9:03am, and which is most likely non-specifically elevated in the setting of CKD stage IV)(await V/Q scan in the 02/02/2025 am to R/O acute PE, which I highly doubt, and hence, I have NOT started patient on heparin infusion or lovenox 1mg/kg SQ q12, and instead, I have opted to keep patient on heparin 5000 units SQ q12 on 02/01/2025). Diagnostic Findings PA/lateral CXR (01/30/2025, 3:59pm): Cardiomegaly, bilateral effusions, pulmonary vascular congestion; no infiltrate or pneumothorax (by my review). EKG (01/30/2025, 4:02pm): NSR @ 65, MT 168, QTC 457, q in V1, V2; TWI in I, aVL, V2, V4-V6; no acute ST depressions/elevations (by my review). EKG (02/01/2025, 8:55am): NSR @ 71, MT 156, QTC 465, q in V1; TWI in I, aVL; no acute ST depressions/elevations (by my review). V/Q scan (02/01/2025 am): (to follow up on D-dimer 1,010 ug/L (02/01/2025, 9:03am)(Of note, I ordered this test to address patient's complaints of transient mid back pain on 02/01/2025, 9:03am, and which is most likely non-specifically elevated in the setting of CKD stage IV)(await V/Q scan in the 02/02/2025 am to R/O acute PE, which I highly doubt, and hence, I have NOT started patient on heparin infusion or lovenox 1mg/kg SQ q12, and instead, I have opted to keep patient on heparin 5000 units SQ q12 on 02/01/2025). Historical testing in [facility] includes: Portable CXR (01/24/2025, 7:00am): Cardiomegaly, bilateral effusions, pulmonary vascular congestion; no infiltrate or pneumothorax (by my review). EKG (01/22/2025, 9:08am): NSR @ 62, MT 154, QTC 454, q in V1, V2; TWI in I, aVL; no acute ST depressions/elevations (by my review). TTE (01/10/2025, 11:45am): 1. LVEF 40%. Mild concentric LVH. Mild-moderate global hypokinesis of LV. 2. RV grossly normal size. 3. LA normal size. RA normal size. 4. No . No AR. 5. PV not well visualized. 6. No MS. Mild-moderate MR. 7. Mild TR. RVSP > 60 mm Hg. 8. Aortic root normal size. 9. No pericardial effusion. 10.Grade II LV diastolic dysfunction with E/E' ratio 21.7. (as per CARDS Dr. Brayan Parada). PG Care Time/CCT Total # of Minutes Spent Total Time Spent with Patient: Total time spent is greater than 50% in coordination of care (as documented) at patient's floor/unit and/or counseling patient: Coding Level of Care Code 49384 SUB INP/OBS CARE 2/35MIN Diagnoses Acute on chronic combined systolic and diastolic heart failure I50.43 Heart failure type: combined systolic and diastolic Acute kidney injury N17.9 CKD stage 3b, GFR 30-44 ml/min N18.32 Acute hyperkalemia E87.5 CAD (coronary artery disease) I25.10 Type 2 diabetes mellitus with retinopathy of both eyes, with long-term current use of insulin E11.319; Z79.4 Hypertension I10 Breast cancer C50.919 Chronic hyponatremia E87.1 Essential tremor G25.0 Parkinsonism G20.C Elevated troponin R79.89 Transaminitis R74.01 (1) Acute on chronic heart failure Heart failure type: combined systolic and diastolic Qualified Code(s): I50.43 - Acute on chronic combined systolic (congestive) and diastolic (congestive) heart failure
[2025-02-01 19:00] LABS: Anion Gap 12.0 (3-11); Blood Urea Nitrogen 59.0 mg/dl (6-23); Calcium 9.1 mg/dl (8.6-10.3); Carbon Dioxide 28.0 mmol/L (21-32); Chloride 89.0 mmol/L (98-107); Creatinine Clr Calc Pharmacy 14.5 ml/min; Glucose 215.0 mg/dl (70-99(Fasting)); Potassium 5.0 mmol/L (3.5-5.1); Sodium 129.0 mmol/L (136-145)
[2025-02-02 06:52] LABS: Anion Gap 9.0 (3-11); Blood Urea Nitrogen 56.0 mg/dl (6-23); Calcium 9.4 mg/dl (8.6-10.3); Carbon Dioxide 30.0 mmol/L (21-32); Chloride 91.0 mmol/L (98-107); Creatinine Clr Calc Pharmacy 18.4 ml/min; Glucose 109.0 mg/dl (70-99(Fasting)); Potassium 4.3 mmol/L (3.5-5.1); Sodium 130.0 mmol/L (136-145)
--- NOTE | 2025-02-02 08:55 | XRay Report ---
XR chest 1V portable CLINICAL HISTORY: CHF COMPARISON STUDY: 01/30/2025 FINDINGS: Stable CABG. Stable cardiomegaly without pulmonary vascular congestion. There is minimal st randing in the lung bases with mild blunting of the costophrenic angles, improved. No pneumothorax. IMPRESSION: Interval improvement with possible trace residual pleural effusions. ACT 112: Negative or not required by law. Electronically signed by: Joshua Singh M.D. 02/02/2025 8:53 AM
--- NOTE | 2025-02-02 09:01 | Electrocardiogram Report ---
Test Reason : Blood Pressure : */* mmHG Vent. Rate : 65 BPM Atrial Rate : 65 BPM P-R Int : 168 ms QRS Dur : 82 ms QT Int : 440 ms P-R-T Axes : 48 19 155 degrees QTcB Int : 457 ms Normal sinus rhythm with sinus arrhythmia Possible Anteroseptal infarct (cited on or before 31-May-2024) Abnormal ECG When compared with ECG of 22-Jan-2025 09:08, T wave inversion now evident in Anterior leads Confirmed by Alfredo August ([id number]) on 02/02/2025 9:01:15 AM Referred By: REFERRED SELF Confirmed By: Alfreod August
--- NOTE | 2025-02-02 10:14 | Hospitalist Progress Note ---
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 Improved with parenteral loop diuresis along with oral metolazone. Will continue to monitor intake and output. Serial chest x-ray while hospitalized. She is on room (2) Acute kidney injury: Plan: Acute on chronic kidney disease stage III. Creatinine has improved to 2.2. I expect her creatinine to remain elevated due to her underlying chronic renal disease and diuretic effect. Monitor intake and output. Serial labs (3) CKD stage 3b, GFR 30-44 ml/min: Plan: Baseline mild elevation of creatinine consistent with CKD stage III (4) Acute hyperkalemia: Plan: Mild on admission. Will avoid oral potassium supplementation and avoid spironolactone. Avoid HIMANSHU inhibitors and ARB medications. (5) CAD (coronary artery disease): Plan: Currently stable. No chest pain. Continue current medical management (6) Type 2 diabetes mellitus with retinopathy of both eyes, with long-term current use of insulin: Plan: Glucose levels are acceptable at this time. Continue current medical management. Sliding scale insulin coverage as needed while hospitalized (7) Hypertension: Plan: Controlled. Continue current medical management (8) Breast cancer: Plan: s/p bilateral mastectomies. No chemo. No XRT. Continue neoadjuvant anastrozole 1mg PO qam. (9) Chronic hyponatremia: Plan: Mild. No treatment necessary. Sodium supplementation has been discontinued in the face of congestive heart failure. (10) Essential tremor: Plan: Stable. Continue primidone therapy (11) Parkinsonism: Plan: Stable. Continue Sinemet therapy (12) Elevated troponin: Plan: Not trending. No chest pain. No acute EKG changes. No evidence of acute coronary syndrome (13) Transaminitis: Plan: Mild elevation of liver enzymes. Probably from passive hepatic congestion related to CHF. Will follow Plan Hopeful discharge back to home within the next day or 2 Admission and Anticipated Discharge Date Admission Date: January 31, 2025 Subjective Alert and oriented. No distress. Chest x-ray done today, February 02, looks better. Oral sodium tablets have been discontinued. Creatinine improved to 2.2. Creatinine undoubtedly will remain mildly elevated with diuresis for the underlying CHF. Ventilation/perfusion scan is pending. This was ordered probably because her D-dimer was quite high. She is on room air. She is currently on intravenous Bumex with good urine output. She will eventually be switched back to oral Lasix along with the addition of metolazone which seems to be helping with her diuresis. Review of Systems 2 Review of Systems: Constitutionalno fever or chills ENTno blurred vision, no double vision, no epistaxis, no sore throat Respiratoryno cough, no wheezing, no shortness of breath Cardiacno palpitations, no chest pain, no syncope Emanuel nausea, vomiting, diarrhea, melena, hematochezia GUno urinary retention, no urinary incontinence, no dysuria, no hematuria Musculoskeletalno joint pain, no muscle tenderness Skinno bruising, no rashes, no pruritus Neurono isolated weakness, no paresthesia, no weakness Psychno depression, no anxiety Physical Exam 2 Physical Exam: General-alert and oriented x3, no fever, no chills HEENT-head atraumatic and normocephalic, pupils equal and reactive to light, extraocular muscles intact Neck-no lymphadenopathy or thyromegaly, trachea midline Chest-clear to auscultation. No rales, wheezing or rhonchi Cardiac-regular rate and rhythm, normal S1 and S2 Abdomen-normal bowel sounds, no hepatosplenomegaly Extremities-no cyanosis, clubbing, or edema Neuro-cranial nerves II through XII intact, motor and sensory function within normal limits, strength symmetrical, no focal deficits Psych-normal affect, normal mood Results & Data Results & Data Vital Signs (Past 12 Hours) Vital Signs Temp Pulse Pulse Resp BP Pulse Ox O2 Del Method 02/02/25 08:00 36.7 C 622 H 18 120/61 98 Room Air 02/02/25 07:19 62 15 91 Room Air 02/02/25 03:36 36.4 C L 58 L 17 110/66 95 Room Air 02/02/25 00:49 36.4 C L 57 L 17 114/69 95 Room Air 02/01/25 22:13 57 L FiO2 02/02/25 08:00 02/02/25 07:19 21 02/02/25 03:36 02/02/25 00:49 02/01/25 22:13 Laboratory Results 01/31/25 06:27 02/02/25 06:14 PG Care Time/CCT Total # of Minutes Spent Total Time Spent with Patient: Total time spent is greater than 50% in coordination of care (as documented) at patient's floor/unit and/or counseling patient: Coding Level of Care Code 77160 SUB INP/OBS CARE 3/50MIN Diagnoses Acute on chronic combined systolic and diastolic heart failure I50.43 Heart failure type: combined systolic and diastolic Acute kidney injury N17.9 CKD stage 3b, GFR 30-44 ml/min N18.32 Acute hyperkalemia E87.5 CAD (coronary artery disease) I25.10 Type 2 diabetes mellitus with retinopathy of both eyes, with long-term current use of insulin E11.319; Z79.4 Hypertension I10 Breast cancer C50.919 Chronic hyponatremia E87.1 Essential tremor G25.0 Parkinsonism G20.C Elevated troponin R79.89 Transaminitis R74.01 (1) Acute on chronic heart failure Heart failure type: combined systolic and diastolic Qualified Code(s): I50.43 - Acute on chronic combined systolic (congestive) and diastolic (congestive) heart failure
--- NOTE | 2025-02-02 10:41 | Nuclear Medicine Report ---
NM pul perfusion CLINICAL HISTORY: Elevated Ddimer; medial back pain COMPARISON STUDY: CT scan dated 01/09/2025 FINDINGS: The patient was injected with 5.4 mCi of technetium 99m MAA. A low number of particles was administer ed due to the patient's elevated pulmonary artery pressures. There is a small perfusion defect involving the right posterior lower lobe. The left lung demonstrates a fissure sign. This is a nonspecific finding with multiple causes. This i s most often seen with a pleural effusion. While it has been reported in pulmonary embolism, it is no t viewed as particularly suspicious for this entity. IMPRESSION: 1. Small perfusion defect involving the posterior aspect of the right lower lobe 2. Left lobe fissure sign, most often seen with a pleural effusion. ACT 112: Negative or not required by law. Electronically signed by: Julito Meza M.D. 02/02/2025 10:40 AM
[2025-02-03 08:24] VITALS: RESP 18
[2025-02-03 10:24] LABS: Anion Gap 10.0 (3-11); Blood Urea Nitrogen 55.0 mg/dl (6-23); Calcium 9.6 mg/dl (8.6-10.3); Carbon Dioxide 29.0 mmol/L (21-32); Chloride 83.0 mmol/L (98-107); Creatinine Clr Calc Pharmacy 20.4 ml/min; Glucose 187.0 mg/dl (70-99(Fasting)); Potassium 4.4 mmol/L (3.5-5.1); Sodium 122.0 mmol/L (136-145)
--- NOTE | 2025-02-03 11:00 | Discharge Summary ---
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 Improved with parenteral loop diuresis along with oral metolazone. Monitor intake and output while hospitalized. She is on room (2) Acute kidney injury: Acute on chronic kidney disease stage III. Creatinine has improved further to 2.0. I expect her creatinine to remain elevated due to her underlying chronic renal disease and diuretic effect. Monitor intake and output. Serial labs while hospitalized (3) CKD stage 3b, GFR 30-44 ml/min: Baseline mild elevation of creatinine consistent with CKD stage III (4) Acute hyperkalemia: Mild on admission. Will avoid oral potassium supplementation and avoid spironolactone. Avoid HIMANSHU inhibitors and ARB medications. (5) CAD (coronary artery disease): Currently stable. No chest pain. Continue current medical management (6) Type 2 diabetes mellitus with retinopathy of both eyes, with long-term current use of insulin: Glucose levels are acceptable at this time. Resume usual diabetic management at discharge. Sliding scale insulin coverage as needed while hospitalized (7) Hypertension: Controlled. Continue current medical management (8) Breast cancer: s/p bilateral mastectomies. No chemo. No XRT. Continue neoadjuvant anastrozole 1mg PO qam. (9) Chronic hyponatremia: Sodium is 122 per labs today, February 03. Not sure if this is accurate or not but not surprising in the face of intravenous diuretic therapy. Fortunately she is asymptomatic. Expect sodium to return to baseline soon since she will be off parenteral diuretic therapy at discharge. No treatment necessary. Sodium supplementation has been discontinued in the face of congestive heart failure. (10) Essential tremor: Stable. Continue primidone therapy (11) Parkinsonism: Stable. Continue Sinemet therapy (12) Elevated troponin: Not trending. No chest pain. No acute EKG changes. No evidence of acute coronary syndrome (13) Transaminitis: Mild elevation of liver enzymes. Probably from passive hepatic congestion related to CHF. Will follow while hospitalized Plan Home today, February 03 . She has Lasix 80 mg which she will take once daily in the early afternoon. She will take metolazone 2.5 mg daily on Sunday through Sunday Admission HPI Per Admitting Provider William Xie is a pleasant 79yo female with history of CAD s/p stenting and CABG x3V, ICH, HFrEF (EF 40% with mild to moderate global hypokinesis of the LV per echo 01/10/2025), HTN, HLP, DM presenting with shortness of breath and abdominal distention. Patient was recently admitted to [facility] from 01/22 - 01/25/2025 after presenting with shortness of breath. She was found to have elevated troponin and BNP. She ws diuresed with Lasix while admitted and discharged on an increased dose of Lasix 80mg daily. Her weight on discharge noted to be 69.3kg. Patient reports she has been taking her lasix as prescribed but continues to have progressive shortness of breath as well as abdominal distention. She was seen by her PCP on 01/29/2025 for followup with complaint of increasing dyspnea - weight at that time 72.6kg. Her Lasix was placed on hold and she was started on Bumex 2mg po BID. Patient reports taking the Bumex but has not noted any increase in her urine output or improvement in her shortness of breath. Overall she reports gaining 10 pounds since he discharge on 01/25 with a two pound weight gain since yesterday. She was seen again by her PCP today and was planning to start Metolazone in addition to the Bumex. Weight today noted to be 73kg. Labs obtained today revealed an increase in Cr to 2.14 from 1.77 therefore patient was advised to come to the ER. Patient denies chest pain, cough, palpitations, fever, chills, nausea, vomiting, diarrhea She has stable 3 pillow orthopnea Has some dyspnea at rest as well States her dry weight is approximatey 150-152# In the ER she is afebrile, HD stable ER Course: Bumex 2mg IV Discharge Exam General-alert and oriented x3, no fever, no chills HEENT-head atraumatic and normocephalic, pupils equal and reactive to light, extraocular muscles intact Neck-no lymphadenopathy or thyromegaly, trachea midline Chest-clear to auscultation. No rales, wheezing or rhonchi Cardiac-regular rate and rhythm, normal S1 and S2 Abdomen-normal bowel sounds, no hepatosplenomegaly Extremities-no cyanosis, clubbing, or edema Neuro-cranial nerves II through XII intact, motor and sensory function within normal limits, strength symmetrical, no focal deficits Psych-normal affect, normal mood Discharge Plan Discharge Items Patient Disposition: Home - Self-Care Reason For Visit: ACUTE ON CHRONIC SYSTOLIC AND DIASTOLIC CHF EXACER Discharge Diagnosis: Acute on chronic combined systolic and diastolic CHF, acute on chronic kidney disease stage III, diuretic induced hyponatremia Condition on Discharge: Good Activity: Resume your previous activity Non-emergency contact: Primary Care Provider and Field Clerk Call non-emergency contact if: you have any medication questions and your symptoms worsen Follow-up/Referrals: Piedad Cronin MD [Primary Care Provider] - Diet: Carb Consistent or DM2 and Heart Healthy Addtl Attending Provider Instructions: Take Lasix 80 mg daily in the early afternoon. Take metolazone 2.5 mg daily in the morning Sunday through Sunday. All other medication remains the same. A prescription for metolazone has been sent to [facility] pharmacy on . Resume your usual diabetic management at discharge Pending Studies at Discharge: No Stand-Alone Forms: My [facility] [employer], Smoking Cessation Medications and DC Order Prescriptions: New furosemide [Lasix] 80 mg tablet 80 mg PO DAILY Qty: 1 0RF metolazone 2.5 mg tablet 2.5 mg PO DAILY Qty: 30 0RF Rx Instructions: Take metolazone daily on Sunday through Sunday each week Continued albuterol sulfate 90 mcg/actuation HFA aerosol inhaler 2 puff INHALATION Q6H PRN (Reason: Wheezing) Qty: 18 3RF clopidogrel 75 mg tablet 75 mg PO DAILY Qty: 90 3RF metformin 500 mg tablet 500 mg PO BIDWMEAL 90 Days Qty: 180 3RF losartan 50 mg tablet 50 mg PO DAILY Qty: 90 3RF atorvastatin 80 mg tablet 80 mg PO QPM Qty: 90 3RF (DME) blood-glucose meter [Accu-Chek Guide Glucose Meter] Misc See Rx Instructions .Route Qty: 1 0RF Rx Instructions: TEST BLOOD SUGAR DAILY (DME) Accu-Chek Guide test strips Strip See Rx Instructions .Route Qty: 300 3RF Rx Instructions: TEST BLOOD SUGAR 3 TIMES DAILY (DME) lancets [Accu-Chek Softclix Lancets] Misc See Rx Instructions .Route Qty: 300 3RF Rx Instructions: TEST BLOOD SUGAR THREE TIMES DAILY metoprolol succinate 200 mg tablet extended release 24 hr 200 mg PO QAM Qty: 90 3RF prevagen 1 tab PO DAILY anastrozole 1 mg tablet 1 mg PO QAM coenzyme Q10 200 mg capsule 200 mg PO QAM (DME) pen needle, diabetic [BD Ultra-Fine Suzette Pen Needle] 32 gauge x 5/32" needle See Dose Instructions .ROUTE .MEDSUPPLY Qty: 400 3RF Rx Instructions: use 4 daily budesonide 0.5 mg/2 mL suspension for nebulization 0.5 mg inhalation BID Qty: 60 1RF cyanocobalamin (vitamin B-12) 2,500 mcg tablet 1,000 mcg PO 3XWK Rx Instructions: MON, WED, FRI nitroglycerin [Nitrostat] 0.4 mg tablet, sublingual 0.4 mg Sublingual Q5M PRN (Reason: chest pain) Qty: 25 5RF Rx Instructions: PLACE 1 TAB UNDER TONGUE Q5M FOR UP TO 3 DOSES PRN CHEST PAIN. CALL 911 IF PAIN PERSISTS carbidopa-levodopa 25-100 mg tablet 1 tab PO TID Qty: 90 2RF (DME) Dexcom G7 Sensor Device See Rx Instructions .Route Qty: 9 3RF Rx Instructions: To change every 10 days (DME) nebulizer and compressor Device See Rx Instructions .ROUTE .MEDSUPPLY Qty: 1 0RF Rx Instructions: As directed ipratropium-albuterol 0.5 mg-3 mg(2.5 mg base)/3 mL solution for nebulization 3 ml inhalation Q4H PRN (Reason: wheezing) Qty: 180 1RF Jardiance 10 mg tablet 10 mg PO DAILY Qty: 30 1RF Hold Instructions: Resume on 01/21/25. HOLD until seen by PCP for follow-up primidone [Mysoline] 50 mg tablet See Rx Instructions .ROUTE .COMPLEX Rx Instructions: TAKES 100 MG QAM, THEN 50 MG QPM. Novolin N FlexPen 100 unit/mL (3 mL) insulin pen 40 unit subcut BID Rx Instructions: 20 to 30 minutes before breakfast and supper Novolin R FlexPen 100 unit/mL (3 mL) insulin pen 26 unit subcut BID Patient Comments: 20 to 30 minutes before breakfast and supper PreserVision AREDS-2 250-90-40-1 mg Capsule 1 tab PO BID (DME) Spacer for Inhaler Misc See Rx Instructions .Route Qty: 1 0RF Rx Instructions: Use with albuterol inhaler as needed every 2 hours for wheezing. choline [id number] 1 tab PO QAM alendronate 70 mg tablet 70 mg PO WK Rx Instructions: FRIDAYS Take 1 tablet by mouth once a week furosemide [Lasix] 80 mg tablet 80 mg PO DAILY Qty: 30 0RF Rx Instructions: ON HOLD TO TRY BUMEX Discontinued bumetanide 2 mg tablet 2 mg PO BID Qty: 30 0RF Discharge Orders: Discharge Order- CHF (Routine); Ordered 02/03/25 Ordered By: Fran Stapleton Admission Data Admit Date/Time: 01/31/25 19:34 Attending Provider: Fran Stapleton Admit Provider: Dominique Noyola Primary Care Provider: Piedad Cronin Other Providers: Dominique Noyola Hospital Stay Data Consultations 01/30/25 18:31 ED Decision to Admit Stat Pending Results Patient Have Any Pending Studies at Discharge: No Discharge Instructions Given to Patient (Per Discharging Provider) Take Lasix 80 mg daily in the early afternoon. Take metolazone 2.5 mg daily in the morning Sunday through Sunday. All other medication remains the same. A prescription for metolazone has been [facility] Resume your usual diabetic management at discharge Total Time Total Time Spent Total Time Spent (In Minutes): 45 minutes. Total time included patient exam, discharge planning, medication reconciliation. . Coding Level of Care Code INP/OBS EV SAME DAY LV 3,85MIN Diagnoses Acute on chronic combined systolic and diastolic heart failure I50.43 Heart failure type: combined systolic and diastolic Acute kidney injury N17.9 CKD stage 3b, GFR 30-44 ml/min N18.32 Acute hyperkalemia E87.5 CAD (coronary artery disease) I25.10 Type 2 diabetes mellitus with retinopathy of both eyes, with long-term current use of insulin E11.319; Z79.4 Hypertension I10 Breast cancer C50.919 Chronic hyponatremia E87.1 Essential tremor G25.0 Parkinsonism G20.C Elevated troponin R79.89 Transaminitis R74.01
[2025-02-03 11:15] VITALS: BP 112/63; PULSE 58; TEMP 97.5; O2SAT 99
--- NOTE | 2025-02-05 12:36 | Electrocardiogram Report ---
Test Reason : Blood Pressure : */* mmHG Vent. Rate : 71 BPM Atrial Rate : 71 BPM P-R Int : 156 ms QRS Dur : 90 ms QT Int : 428 ms P-R-T Axes : 68 10 136 degrees QTcB Int : 465 ms Normal sinus rhythm with sinus arrhythmia Abnormal ECG When compared with ECG of 30-Jan-2025 16:02, (unconfirmed) Borderline criteria for Anteroseptal infarct are no longer Present ST now depressed in Anterior leads Confirmed by Alfredo August ([id number]) on 02/05/2025 12:35:53 PM Referred By: REFERRED SELF Confirmed By: Alfredo August
== END 2025-02-03 12:26 | disposition home or self-care (01) | DRG 291 ==
LOC: ED 15:45 → 2E 15:45 → SUATTDRO 19:42 → 2E 21:10 → SUATTDRO 01-31 19:34

== ENCOUNTER 2025-02-12 05:53 | Inpatient (IN) ==
[2025-02-12] MEDS: ASPIRIN CHEW 324 MG PO STA (06:17)
--- NOTE | 2025-02-12 06:18 | Emergency Department Note ---
Impression & Plan Chest pain, CHF (congestive heart failure), Shortness of breath, Elevated troponin ED Provider Note NAME: CARLA MOORE AGE: 79 SEX: F : 1945 ARRIVES VIA: Walk-In INFORMANT: Patient ED PROVIDER(S): Asim Reyna DO CHIEF COMPLAINT: Shortness of breath HPI: Patient is an 79-year-old female with a past medical history as heart failure with an EF of 40%, type 2 diabetes, CKD, ischemic cardiomyopathy who presents to the ER for shortness of breath and chest pain. Chest pain started about an hour ago. She notes it is midsternal and describes it as a tightness. She has associated shortness of breath. Shortness of breath has been getting worse for the past several days. Patient notes that she has gained some weight. provides additional history and notes that patient has gained close to 10 pounds since they have been discharged. She denies any dysuria, urgency or frequency. No other exacerbating or remitting factors. She has been taking her diuretic. She notes she is more short of breath with laying flat and improves with sitting up. ADDITIONAL HISTORY OBTAINED: Per HPI Chronic Medical/Social Conditions Affecting Care: Per HPI PAST MEDICAL HISTORY:See Below PAST SURGICAL HISTORY:See Below FAMILY HISTORY:See Below SOCIAL HISTORY:See Below HOME MEDICATIONS:See Below ALLERGIES:See Below VITALS:See Below PHYSICAL EXAMINATION: GENERAL: Sitting up in bed, alert, well appearing, well nourished, no distress, non-toxic EYE EXAM: normal conjunctiva. PERRL and EOM's grossly intact. OROPHARYNX: no exudate, no erythema, lips, buccal mucosa, and tongue normal and mucous membranes are moist NECK: supple, no nuchal rigidity, no adenopathy, non-tender LUNGS: Clear to auscultation. Normal chest wall mechanics HEART: no murmurs, S1 normal and S2 normal ABDOMEN: abdomen soft, non-tender, normo-active bowel sounds, no masses, no rebound or guarding. UPPER EXTREMITIES: upper extremities are grossly normal. LOWER EXTREMITIES: No pitting edema. NEURO EXAM: Normal sensorium, cranial nerves II-XII grossly intact, normal speech, no gross weakness of arms, no gross weakness of legs. MEDICAL DECISION MAKING: Patient is an 79-year-old female who presents ER with a past medical history of ischemic cardiomyopathy, CAD who presents to the ER for chest pain and shortness of breath. Upon arrival EKG shows ST depressions in the inferior anterior and lateral leads are slightly worse than previous. This was repeated x 1. Troponin resulted at at thousand. Creatinine is trending up at 2.5 and there is a hyponatremia. She does have a weight gain of over 10 pounds since being discharged. I discussed the case with Dr. Sutherland from cardiology and she recommended discussing with Dr. Mega Venegas. I discussed the case with him. He will evaluate the patient at bedside. Discussed the case with hospitalist for further evaluation management treatment. Patient was placed on a heparin drip and given a bolus. She denied any bleeding risk factors. Chest pain has been improving since sitting up. Her blood pressure was soft in the 90s and heart rate was in the 50s. Held on nitro and any beta-blockade at this time due to pressures and heart rate. Did give 2 of Bumex at the request of [facility] cardiology and admitted to to the hospitalist for further evaluation management treatment. Consults/Care Managements Discussions: Per [facility] [place] Triage Nursing notes reviewed. Limited review of prior medical records performed Vital Signs: reviewed and remarkable for no significant abnormalities Differential diagnosis: Cardiac ischemia, aortic dissection, pulmonary embolism, pneumothorax, pneumonia, pericarditis, myocarditis, esophageal rupture, GERD, cholecystitis, pancreatitis, musculoskeletal, as well as other pathologies. ER treatment provided: See below Diagnostics interpreted by me include EKG and cardiac monitoring as listed below: -Cardiac Monitoring: An order was placed for continuous cardiac monitoring. The monitor shows a rate of 50 with sinus rhythm. -ECG: Sinus rhythm rate of 55 Normal axis Septal Q waves ST depressions in the inferior leads, anterior and lateral leads without significant change from February 01 -Laboratory studies:Interpreted by me as stated above in MDM and shown below. Imaging studies: Xrays: As interpreted by me: Portable AP upright 1 view of the chest shows large cardiac silhouette CTs show: none Procedures:none Critical Care: I have personally spent 35 minutes of critical care time in the direct management of this patient. This includes bedside care, interpretation of diagnostic studies, and testing, discussion with consultants, patient, and family members, and other required patient management activities. This 35 minutes is in excess of all separately billable procedures. Past Med/Surg History Problem List (Updated 02/12/25 @ 10:05 by Asim Reyna DO) Elevated troponin (Acute) Shortness of breath (Acute) CHF (congestive heart failure) (Acute) Chest pain (Acute) CKD stage 3b, GFR 30-44 ml/min Low blood pressure Type 2 diabetes mellitus with insulin therapy Transaminitis Acute kidney injury Acute hyperkalemia Acute on chronic heart failure Ischemic cardiomyopathy Hospital discharge follow-up Normocytic anemia 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 Mitral regurgitation Pulmonary hypertension Overweight (BMI 25.0-29.9) Sensorineural hearing loss of both ears Diabetic nephropathy associated with type 2 diabetes mellitus Glenohumeral arthritis Osteopenia (Acute) Depression (Chronic) Medical History Solitary pulmonary nodule stable, seen by pulm, no further follow up recommended Internal hemorrhoid Seborrheic keratoses NSTEMI (non-ST elevated myocardial infarction) Myocardial Infarction 2009 History of COVID-19 01/2021>MILD SYMPTOMS *RESOLVED Surgical History H/O bilateral mastectomy H/O lumpectomy History of tooth extraction History of surgery History of colonoscopy History of trigger finger History of open reduction and internal fixation (ORIF) procedure History of cataract surgery History of cardiac cath History of coronary artery bypass graft Family History Sister Breast cancer Father Alcoholism Mother Heart disease Uncle Heart disease Daughter Family history of diabetes mellitus Other No family history of adverse response to anesthesia Denies family history of Ovarian cancer Prostate cancer Myocardial infarction Colorectal cancer Social History Smoking Status: Former smoker Tobacco Type: Cigarettes Age Started Using Tobacco: 13; Age Quit Using Tobacco: 43; packs per day: 0.75; Second Hand Exposure: No; Do You Dip or Chew Tobacco: No; Hx Alcohol Use: No Hx Substance Use: No Preferred Language: Ivorian Communication Ability: Effective Visual Impairment: No Limitations Hearing Ability: Normal Supervisor Shop Required: No Beliefs That Will Affect Care: None marital status: Current Living Situation: Spouse Current Living Situation Comment: lives at home with current occupational status: retired current occupation: Retired Feels Safe at Home: Yes Safety Concerns: Feels Safe At This Time Childhood Exposure to Second-Hand Smoke: Yes Diet: regular caffeine: Yes Dental Care, Regularly: No Physical Activity Frequency: Does not Exercise Seatbelt Use: always Sunscreen Use: Yes Assistive Devices: Cane and Glasses Allergies Allergies Allergy/AdvReac Type Severity Reaction Status Date / Time lisinopril Allergy Intermediate Cough Verified 02/11/25 13:59 isosorbide AdvReac Intermediate Headache Verified 02/11/25 13:59 Home Meds Home Medications Medication Instructions Recorded Confirmed anastrozole 1 mg tablet 1 mg PO QAM 11/08/18 02/12/25 coenzyme Q10 200 mg capsule 200 mg PO QAM 01/06/20 02/12/25 vit C 250 mg-vit E 90 mg-zinc 40 1 tab PO BID 09/26/21 02/12/25 mg-copper 1 [id number] capsule (PreserVision AREDS-2) prevagen 1 tab PO DAILY 05/29/22 02/12/25 cyanocobalamin (vitamin B-12) 1,000 mcg PO 3XWK 12/19/23 02/12/25 2,500 mcg tablet choline [id number] 1 tab PO QAM 05/31/24 02/12/25 primidone 50 mg tablet (Mysoline) See Rx Instructions .Route .COMPLEX 06/20/24 02/12/25 alendronate 70 mg tablet 70 mg PO WK 01/22/25 02/12/25 insulin regular human 100 unit/mL 26 unit subcut BID 01/29/25 02/12/25 (3 mL) subcutaneous pen (Novolin R FlexPen) insulin NPH isoph U-100 human 100 26 unit subcut BID 02/11/25 02/12/25 unit/mL (3 mL) subcutaneous pen (Novolin N FlexPen) Previous Rx's Medication Instructions Recorded Spacer for Inhaler #1 ea 09/27/21 pen needle, diabetic 32 gauge x #400 ea 05/23/23" (BD Ultra-Fine Suzette Pen Needle) nebulizer and compressor #1 ea 07/10/23 budesonide 0.5 mg/2 mL suspension 0.5 mg (2 mL) inhalation BID #60 mL 07/30/23 for nebulization nitroglycerin 0.4 mg sublingual 0.4 mg sublingual Q5M PRN chest 01/08/24 tablet (Nitrostat) pain #25 tabs albuterol sulfate 90 mcg/actuation 2 puff inhalation Q6H PRN Wheezing 01/17/24 aerosol inhaler #18 grams clopidogrel 75 mg tablet 75 mg PO DAILY #90 tabs 05/28/24 empagliflozin 10 mg tablet 10 mg PO DAILY #30 tabs 06/20/24 (Jardiance) carbidopa 25 mg-levodopa 100 mg 1 tab PO TID #90 tabs 10/30/24 tablet metformin 500 mg tablet 500 mg PO BIDWMEAL 90 days #180 12/16/24 tabs losartan 50 mg tablet 50 mg PO DAILY #90 tabs 01/02/25 atorvastatin 80 mg tablet 80 mg PO QPM #90 tabs 01/05/25 blood sugar diagnostic (Accu-Chek #300 ea 01/13/25 Guide test strips) blood-glucose meter (Accu-Chek #1 ea 01/13/25 Guide Glucose Meter) lancets (Accu-Chek Softclix #300 ea 01/13/25 Lancets) metoprolol succinate 200 mg 200 mg PO QAM #90 tabs 01/16/25 tablet,extended release 24 hr blood-glucose sensor (MBW Enterprise G7 #9 ea 01/28/25 Sensor device) ipratropium 0.5 mg-albuterol 3 mg 3 ml inhalation Q4H PRN wheezing 02/05/25 (2.5 mg base)/3 mL nebulization #180 mL soln glucagon 3 mg/actuation nasal spray 3 mg intranasal .q 20 minutes PRN 02/09/25 hypoglycemia #2 ea bumetanide 2 mg tablet 2 mg PO BID #90 tabs 02/10/25 metolazone 2.5 mg tablet 2.5 mg PO Q OTHER DAY PRN weight 02/10/25 gain, edema, SOB #30 tabs Results & Data (ED) Vital Signs Vital Signs - 24 hr 02/12/25 06:01 02/12/25 06:12 02/12/25 06:13 Temperature 36.5 C Temperature Source Temporal Artery Scan Pulse Rate 87 Pulse Rate [Apical] Pulse Rhythm [Apical] Pulse Strength [Apical] Respiratory Rate 20 Respiratory Effort / Characteristics Non-Labored Spontaneous Spontaneous Respiratory Depth Normal Respiratory Pattern Blood Pressure 105/46 L Blood Pressure [Right Arm] Blood Pressure Mean 65 Blood Pressure Mean [Right Arm] Blood Pressure Position [Right Arm] Pulse Oximetry 96 97 Oxygen Delivery Method Room Air Room Air Sepsis Recent Fever Within 48 Hours No Sepsis New/Unexplained Change in Mental Status N/A Sepsis Action Taken by Nursing No Action Required 02/12/25 06:13 02/12/25 06:15 02/12/25 06:16 Temperature Temperature Source Pulse Rate 55 L 54 L Pulse Rate [Apical] Pulse Rhythm [Apical] Pulse Strength [Apical] Respiratory Rate 24 Respiratory Effort / Characteristics Respiratory Depth Respiratory Pattern Blood Pressure 98/33 L Blood Pressure [Right Arm] Blood Pressure Mean 38 Blood Pressure Mean [Right Arm] Blood Pressure Position [Right Arm] Pulse Oximetry 97 97 Oxygen Delivery Method Room Air Sepsis Recent Fever Within 48 Hours Sepsis New/Unexplained Change in Mental Status Sepsis Action Taken by Nursing 02/12/25 09:00 02/12/25 09:00 Temperature Temperature Source Pulse Rate 63 Pulse Rate [Apical] 64 Pulse Rhythm [Apical] Regular Pulse Strength [Apical] Normal Respiratory Rate 22 16 Respiratory Effort / Characteristics Non-Labored Spontaneous Respiratory Depth Normal Respiratory Pattern Regular Blood Pressure 100/43 L Blood Pressure [Right Arm] 99/48 L Blood Pressure Mean Blood Pressure Mean [Right Arm] 65 Blood Pressure Position [Right Arm] Semi-fowlers Pulse Oximetry 98 98 Oxygen Delivery Method Room Air Room Air Sepsis Recent Fever Within 48 Hours Sepsis New/Unexplained Change in Mental Status Sepsis Action Taken by Nursing Laboratory Data 02/12/25 06:11 02/12/25 06:11 Lab Results 02/12/25 02/12/25 02/12/25 Range/Units 06:11 07:00 07:23 WBC 8.18 (4.8-10.8) K/ul RBC 3.03 L (4.20-5.40) M/uL Hgb 8.9 L (12.0-16.0) g/dL Hct 26.5 L (37.0-47.0) % MCV 87.5 (80.0-100.0) fL MCH 29.4 (25.0-34.0) pg MCHC 33.6 (32.0-36.0) g/dL RDW Std Deviation 47.6 H (36.4-46.3) fL RDW Coeff of Sarina 14.8 H (11.5-14.5) % Plt Count 202 (130-400) K/uL MPV 11.0 (9.4-12.4) fL Immature Gran % (Auto) 0.4 % Neut % (Auto) 71.7 % Lymph % (Auto) 15.2 % [place] % (Auto) 10.6 % Eos % (Auto) 1.7 % Baso % (Auto) 0.4 % Neut # (Auto) 5.87 (1.40-6.50) K/uL Lymph # (Auto) 1.24 (1.20-3.40) K/uL [place] # (Auto) 0.87 H (0.11-0.59) K/uL Eos # (Auto) 0.14 (0.00-0.50) K/uL Baso # (Auto) 0.03 (0.00-0.20) K/uL Immature Gran # (Auto) 0.03 (0.01-0.20) K/uL PT 11.7 (9.0-12.0) Seconds INR 1.1 (0.9-1.1) APTT 25 (21-31) Seconds PTT Ratio 0.9 Sodium 125 L (136-145) mmol/L Potassium 4.9 (3.5-5.1) mmol/L Chloride 90 L (98-107) mmol/L Carbon Dioxide 24 (21-32) mmol/L Anion Gap 11 (3-11) BUN 89 H (6-23) mg/dl Creatinine 2.59 H D (0.6-1.2) mg/dl Est Cr Clr Drug Dosing 16.3 ml/min eGFR 18.07 BUN/Creatinine Ratio 34.4 H (10-20) Glucose 106 H (70-99(Fasting)) mg/dl Calcium 8.9 (8.6-10.3) mg/dl Total Bilirubin 0.3 (0.2-1.0) mg/dl AST 34 (13-39) U/L ALT 17 (7-52) U/L Alkaline Phosphatase 67 (34-104) U/L Troponin I High Sens 1097.8 H* 1014.9 H* (0-14) pg/ml B-Natriuretic Peptide 3055 H (0-100) pg/ml Total Protein 6.8 (6.0-8.3) gm/dl Albumin 4.1 (3.4-5.0) gm/dl Globulin 2.7 (2.5-4.0) gm/dl Albumin/Globulin Ratio 1.5 (0.9-2) Lipase 149 H (11-82) U/L Administered Medications Heparin Sodium/Dextrose (Heparin 30382 Unit/500 Ml D5w) 25,000 units in 500 mls @ 15 mls/hr IV .Q24H AZEEM; Protocol Stop: 03/14/25 07:29 Last Admin: 02/12/25 07:49 Dose: 750 units/hr, 15 mls/hr Documented By: KELSY Co-signed By: MARU Discontinued Medications Aspirin (Aspirin Chew 324 Mg) 324 mg PO NOW STA Stop: 02/12/25 06:14 Last Admin: 02/12/25 06:17 Dose: 324 mg Documented By: SERAFIN Fentanyl Citrate (Fentanyl Citrate Pf 100 Mcg/2 Ml Vial) 25 mcg IV NOW ONE Stop: 02/12/25 07:03 Last Admin: 02/12/25 08:24 Dose: 25 mcg Documented By: KELSY Heparin Sodium (Porcine) (Heparin Sod (Porcine) 1000 Unit/Ml) 1 units IV NOW ONE Stop: 02/12/25 07:23 Last Admin: 02/12/25 07:50 Dose: 4,000 units Documented By: KELSY Co-signed By: MARU Heparin Sodium/Dextrose (Heparin Iv Adult Wt-Based Low-Dose W/ Initial Bolus Protocol) 1 each IV NOW STA; Protocol Stop: 02/12/25 07:08 Last Admin: 02/12/25 07:50 Dose: 1 each Documented By: KELSY Sodium Chloride (Nss) 250 mls @ 999 mls/hr IV .Q16M ONE Stop: 02/12/25 06:42 Last Infusion: 02/12/25 07:01 Dose: Infused Documented By: Admin: 02/12/25 06:30 Dose: 999 mls/hr Documented By: SERAFIN Bumetanide 2 mg/ Syringe 8 mls @ 4 mls/min IV ONE ONE Stop: 02/12/25 07:42 Last Admin: 02/12/25 08:25 Dose: 4 mls/min Documented By: KELSY Nitroglycerin (Nitroglycerin Sl 0.4 Mg/Tab Tab) 0.4 mg SL NOW STA Stop: 02/12/25 06:14 Last Admin: 02/12/25 06:26 Dose: Not Given Documented By: KML Imaging Data Radiologist's Impression: Chest X-Ray 02/12/25 06:07 EXAM: XR chest 1V portable CLINICAL HISTORY: Chest pain, nonspecific TECHNIQUE: An X-ray image of the chest is obtained in AP portable projection. COMPARISON: Prior chest x-ray dated 02/02/2025 reviewed. FINDINGS: Pulmonary Parenchyma: Sternotomy sutures seen in place. Chest leads in place. Nonhomogeneous opacity left lower mid zone and right paracardiac region possible atelectasis/infection. Heart and Mediastinum: Cardiomegaly noted. No mediastinal widening or masses. No hilar or mediastinal lymphadenopathy. Bony Thorax: Bony thorax appears intact without fractures or deformities. Soft Tissues: Soft tissues overlying the chest wall are unremarkable. IMPRESSION: 1. Cardiomegaly seen. 2. Nonhomogeneous opacity left lower mid zone and right paracardiac region possible atelectasis/infection. No significant interval change since prior study. Electronically signed by Todd Melgar 02-12-2025 08:15 AM Discharge Plan Visit Data Chief Complaint: Shortness of Breath/Dyspnea Stated Complaint: HARD TO BREATHE,SOB ED Provider: Asim Reyna Discharge Problem: Chest pain, CHF (congestive heart failure), Shortness of breath, Elevated troponin Patient Disposition: Admitted As Inpatient Condition: Serious Discharge Instructions Interventions: ED Discharge Assessment Last Done: 02/12/25 09:00 Discharge Problem: Chest pain Qualifiers: Chest pain type: unspecified Qualified Code(s): R07.9 - Chest pain, unspecified CHF (congestive heart failure) Qualifiers: Heart failure type: unspecified Heart failure chronicity: unspecified Qualified Code(s): I50.9 - Heart failure, unspecified
[2025-02-12] MEDS: NITROGLYCERIN SL 0.4 MG/TAB TAB SL STA (06:26)
[2025-02-12 06:27] LABS: Hematocrit (blood only) 26.5 % (37.0-47.0); Hemoglobin 8.9 g/dL (12.0-16.0); Immature Granulocytes # (auto) 0.03 K/uL (0.01-0.20); Immature Granulocytes % (auto) 0.4 %; Mean Corpuscular Hemoglobin 29.4 pg (25.0-34.0); Mean Corpuscular Volume 87.5 fL (80.0-100.0); Platelet Count 202 K/uL (130-400); RDW Standard Deviation 47.6 fL (36.4-46.3); Red Blood Count 3.03 M/uL (4.20-5.40); White Blood Count 8.18 K/ul (4.8-10.8)
[2025-02-12] MEDS: SODIUM CHLORIDE 0.9% 250 ML IV ONE (06:30)
[2025-02-12 06:46] LABS: Alanine Aminotransferase 17.0 U/L (7-52); Albumin Globulin Ratio 1.5 (0.9-2); Albumin Level 4.1 gm/dl (3.4-5.0); Alkaline Phosphatase 67.0 U/L (34-104); Anion Gap 11.0 (3-11); Bilirubin,Total 0.3 mg/dl (0.2-1.0); Blood Urea Nitrogen 89.0 mg/dl (6-23); Calcium 8.9 mg/dl (8.6-10.3); Carbon Dioxide 24.0 mmol/L (21-32); Chloride 90.0 mmol/L (98-107); Creatinine Clr Calc Pharmacy 16.3 ml/min; Globulin 2.7 gm/dl (2.5-4.0); Glucose 106.0 mg/dl (70-99(Fasting)); Lipase 149.0 U/L (11-82); Potassium 4.9 mmol/L (3.5-5.1); Sodium 125.0 mmol/L (136-145); Total Protein 6.8 gm/dl (6.0-8.3)
[2025-02-12] MEDS: HEPARIN 25000 UNIT/500 ML D5W 25,000 UNITS/500 ML BAG IV SCH (07:49)
[2025-02-12] MEDS: Heparin IV Adult Wt-Based Low-Dose w/ INITIAL Bolus Protocol IV STA (07:50)
[2025-02-12] MEDS: HEPARIN SOD (PORCINE) 1000 UNIT/ML IV ONE (07:50)
--- NOTE | 2025-02-12 07:59 | History & Physical Report ---
Date of Service February 12, 2025 Assessment & Plan (1) CHF (congestive heart failure): Mami William Xie is a 79 Y O Female with PMH of CKD stage IIIb, Type II DM on Insulin, CAD s/p CABG Chronic Heart Failure with reduced ejection fraction, Pulmonary Hypertension, Cirrhosis, CAD and Depression presented today with gradual worsening of shortness of breath for 3 days and chest pain that started this morning prior to coming ED. EKG done in the ER revealed new T wave inversi on and ST segment depression through leads V3 -V6. Repeat echo with significant decrease in ejection fraction to 30% compared to prior. She is being admitted for management of NSTEMI and Acute Exacerbation of Heart Failure. #NSTEMI - Came in with chest pain half an hour prior to ED visit. - EKG revealed new onset T wave inversion and ST segment depression -Cardiology on board. -Left Heart cath reveals 100% occlusion of distal aspect of distal circumflex stent; 100% chronic proximal LAD stent occlusion -Continue medical management as per cardio -Heparin drip for 48hr -Recommend DAPT. Patient is on Clopidogrel only at home. Will add aspirin -Continue home metoprolol 200mg qAM -Continue losartan 50mg Po daily -Continue Atorvastatin 80mg qPM - Sublingual Nitroglycerine and Morphine as needed #Acute Exacerbation of Chronic Heart Failure -Worsening shortness of breath for 3 days -Echo today shows Normal LV size, borderline concentric LVH with LVEF 25-30%, Global mild hypokinesis -Echo(12/05/2024) reveals LVEF of 40-35% -NSTEMI contributing to exacerbation of heart failure -Received Bumex 2mg Iv In the ED. Will give additional dose in the afternoon -Continue home metolazone -Measure I/Os #Chronic Conditions Parkinson disease: continue Levodopa/Carbidopa DMII: current home regimen: metformin 500mg BID, jardiance 10mg, NPH 32 units prior to breakfast and dinner, regular insulin 26 units for breakfast, 20units prior to dinner. Will hold metformin. Continue Jardiance. Lantus 25 unit BID and ISS Hypertension: Continue metoprolol and Losartan Hyperlipidemia: Continue Atorvastatin breast cancer:patient with history of breast cancer and mastectomies -Continue anastrozole Code: Full DVT Prophylaxis: On heparin Dispo: PCU History of Present Illness Chief Complaint: Chest pain, Shortness of breath Primary Care Provider: PiedadMD Anne-Marie Quiros Fadra is a 79 Y O Female with PMH of CKD stage IIIb, Type II DM on Insulin, CAD s/p CABG Chronic Heart Failure with reduced ejection fraction, Pulmonary Hypertension, Cirrhosis, CAD and Depression presented today with gradual worsening of shortness of breath for 3 days and chest pain that started this morning prior to coming ED. She reports chest pain mostly in the right chest upto epigastric region.She was recently admitted in the hospital for exacerbation of heart failure 3 times in the past. . . She has gained the weight of 10pound since discharge She is not voiding as usual since last Sunday.Denies light headedness, dizziness, palpitations. Denies recent changes in her diet.Her recent Echocardiogram from 01/09 shows normal left ventricle size with mild concentric left ventricular hypertrophy and EF 40% ER course EKG was done with new onset T wave inversion; ST segment depression in leads V3 to V6 Labs WBC: 8.18, hgb 8.9 Sodium 125, BUN 89; Creatinine 2.59 Troponin: 1097> 1014, BNP: 3055 Chest XR: Cardiomegaly seen.Non homogenous opacity left lower mid zone and right paracardiac region possible atelectasis/infection Allergies Allergy/AdvReac Type Severity Reaction Status Date / Time lisinopril Allergy Intermediate Cough Verified 02/11/25 13:59 isosorbide AdvReac Intermediate Headache Verified 02/11/25 13:59 Home Medications Medication Instructions Recorded Confirmed Type anastrozole 1 mg tablet 1 mg PO QAM 11/08/18 02/12/25 History coenzyme Q10 200 mg capsule 200 mg PO QAM 01/06/20 02/12/25 History vit C 250 mg-vit E 90 mg-zinc 40 1 tab PO BID 09/26/21 02/12/25 History mg-copper 1 [id number] capsule (PreserVision AREDS-2) Spacer for Inhaler #1 ea 09/27/21 02/11/25 Rx prevagen 1 tab PO DAILY 05/29/22 02/12/25 History pen needle, diabetic 32 gauge x #400 ea 05/23/23 02/11/25 Rx 5/32" (BD Ultra-Fine Suzette Pen Needle) nebulizer and compressor #1 ea 07/10/23 02/11/25 Rx budesonide 0.5 mg/2 mL suspension 0.5 mg (2 mL) inhalation BID #60 mL 07/30/23 02/12/25 Rx for nebulization cyanocobalamin (vitamin B-12) 1,000 mcg PO 3XWK 12/19/23 02/12/25 History 2,500 mcg tablet nitroglycerin 0.4 mg sublingual 0.4 mg sublingual Q5M PRN chest 01/08/24 02/12/25 Rx tablet (Nitrostat) pain #25 tabs albuterol sulfate 90 mcg/actuation 2 puff inhalation Q6H PRN Wheezing 01/17/24 02/12/25 Rx aerosol inhaler #18 grams clopidogrel 75 mg tablet 75 mg PO DAILY #90 tabs 05/28/24 02/12/25 Rx choline [id number] 1 tab PO QAM 05/31/24 02/12/25 History empagliflozin 10 mg tablet 10 mg PO DAILY #30 tabs 06/20/24 02/12/25 Rx (Jardiance) primidone 50 mg tablet (Mysoline) See Rx Instructions .Route .COMPLEX 06/20/24 02/12/25 History carbidopa 25 mg-levodopa 100 mg 1 tab PO TID #90 tabs 10/30/24 02/12/25 Rx tablet metformin 500 mg tablet 500 mg PO BIDWMEAL 90 days #180 12/16/24 02/12/25 Rx tabs losartan 50 mg tablet 50 mg PO DAILY #90 tabs 01/02/25 02/12/25 Rx atorvastatin 80 mg tablet 80 mg PO QPM #90 tabs 01/05/25 02/12/25 Rx blood sugar diagnostic (Accu-Chek #300 ea 01/13/25 02/11/25 Rx Guide test strips) blood-glucose meter (Accu-Chek #1 ea 01/13/25 02/11/25 Rx Guide Glucose Meter) lancets (Accu-Chek Softclix #300 ea 01/13/25 02/11/25 Rx Lancets) metoprolol succinate 200 mg 200 mg PO QAM #90 tabs 01/16/25 02/12/25 Rx tablet,extended release 24 hr alendronate 70 mg tablet 70 mg PO WK 01/22/25 02/12/25 History blood-glucose sensor (Dexcom G7 #9 ea 01/28/25 02/11/25 Rx Sensor device) insulin regular human 100 unit/mL 26 unit subcut BID 01/29/25 02/12/25 History (3 mL) subcutaneous pen (Novolin R FlexPen) ipratropium 0.5 mg-albuterol 3 mg 3 ml inhalation Q4H PRN wheezing 02/05/25 02/12/25 Rx (2.5 mg base)/3 mL nebulization #180 mL soln glucagon 3 mg/actuation nasal spray 3 mg intranasal .q 20 minutes PRN 02/09/25 02/12/25 Rx hypoglycemia #2 ea bumetanide 2 mg tablet 2 mg PO BID #90 tabs 02/10/25 02/12/25 Rx metolazone 2.5 mg tablet 2.5 mg PO Q OTHER DAY PRN weight 02/10/25 02/12/25 Rx gain, edema, SOB #30 tabs insulin NPH isoph U-100 human 100 26 unit subcut BID 02/11/25 02/12/25 History unit/mL (3 mL) subcutaneous pen (Novolin N FlexPen) Past Med/Surg History Problem List Elevated troponin (Acute) Shortness of breath (Acute) CHF (congestive heart failure) (Acute) Chest pain (Acute) CKD stage 3b, GFR 30-44 ml/min Low blood pressure Type 2 diabetes mellitus with insulin therapy Transaminitis Acute kidney injury Acute hyperkalemia Acute on chronic heart failure Ischemic cardiomyopathy Hospital discharge follow-up Normocytic anemia 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 Mitral regurgitation Pulmonary hypertension Overweight (BMI 25.0-29.9) Sensorineural hearing loss of both ears Diabetic nephropathy associated with type 2 diabetes mellitus Glenohumeral arthritis Osteopenia (Acute) Depression (Chronic) Medical History Parkinsonism Essential tremor Chronic hyponatremia CHF (congestive heart failure) Type 2 diabetes mellitus with retinopathy of both eyes, with long-term current use of insulin Breast cancer (07/2017) left breast infiltrating ductal CA dx 07/2017 ([place]+/[place]+, Her 2 -) and right breast invasive ductal CA dx 11/2017 ([place] Her 2 +), s/p elective B/L ma stectomy with right axillary dissection (0/7 nodes +), on Arimedex since Jan 2018 CAD (coronary artery disease) Hypertension Hyperlipidemia Solitary pulmonary nodule stable, seen by pulm, no further follow up recommended Internal hemorrhoid Seborrheic keratoses NSTEMI (non-ST elevated myocardial infarction) Myocardial Infarction 2010 History of COVID-19 01/2021>MILD SYMPTOMS *RESOLVED Surgical History H/O bilateral mastectomy SURGERY ONLY>(NO LIMB RESTRICTION) NO RECONSTRUCTION H/O lumpectomy LEFT X 2 History of tooth extraction History of surgery Right Axillary Dissection, Bilateral Breast Scar Revision - 12/2017 [facility] History of colonoscopy History of trigger finger right thumb release History of open reduction and internal fixation (ORIF) procedure RT ANKLE History of cataract surgery RT/LEFT History of cardiac cath STENTS 06/2010 IN [place] (DIAG AND CX), 1 STENT 04/2011, AND 1 STENT 2013 IN [facility] History of coronary artery bypass graft 3 VESSELS-2009 AT [place] *FOLLOWS WITH DR. HAMMER Family History Sister Breast cancer Father Alcoholism Mother Heart disease Uncle Heart disease Daughter Family history of diabetes mellitus Other No family history of adverse response to anesthesia Denies family history of Ovarian cancer Prostate cancer Myocardial infarction Colorectal cancer Social History Smoking Status: Former smoker Tobacco Type: Cigarettes Age Started Using Tobacco: 13; Age Quit Using Tobacco: 43; packs per day: 0.75; Second Hand Exposure: No; Do You Dip or Chew Tobacco: No; Hx Alcohol Use: No Hx Substance Use: No Preferred Language: Sinhala Communication Ability: Effective Visual Impairment: No Limitations Hearing Ability: Normal Global Clinical Leader Required: No Beliefs That Will Affect Care: None marital status: Current Living Situation: Spouse Current Living Situation Comment: lives at home with current occupational status: retired current occupation: Retired Other Information That Helps Us Care for You: No Feels Safe at Home: Yes Safety Concerns: Feels Safe At This Time Childhood Exposure to Second-Hand Smoke: Yes Diet: regular caffeine: Yes Dental Care, Regularly: No Physical Activity Frequency: Does not Exercise Seatbelt Use: always Sunscreen Use: Yes Assistive Devices: Glasses Review of Systems Review of Systems: As per HPI Physical Exam Physical Exam: Constitutional: Well appearing, No acute distress HEENT: Atraumatic, Normocephalic, No conjunctival injection CVS: S1 S2, regular rhythm Respiratory: Decreased breath sound at bases, basal crackles + GI: Soft, distended, Tenderness in right upper quadrant + MSK: No gross deformities noted Skin: Warm, Dry, No rashes Neuro: Alert, Oriented to TPP, No Focal deficit Psych: Mood and Affect congruent, Cooperative on exam Results & Data Results & Data Vital Signs (Past 12 Hours) Vital Signs Temp Pulse Resp BP Pulse Ox O2 Del Method 02/12/25 06:16 54 L 24 98/33 L 97 02/12/25 06:15 55 L 02/12/25 06:13 97 Room Air 02/12/25 06:13 97 Room Air 02/12/25 06:01 36.5 C 87 20 105/46 L 96 Room Air Supervising Physician Co-Signing Physician Notes I personally examined the patient and verified all [place] points of history and exam, discussed case, and agree with decision making with Dr Armas Feeling better than earlier this morning. Still has a little bit of abdominal pain, but she relates being constipated right now which is unusual for her. Notes that the chest discomfort and shortness of breath are markedly improved if not resolved. Vitals noted, in general she is awake and alert pleasant no distress. HEENT normocephalic atraumatic mucous membranes moist. Breathing unlabored no accessory muscle use good effort. Skin without rashes pallor or icterus. Neuro without focal deficits. NSTEMI with newly reduced EF and acute HFrEFstatus post cath, unfortunately no intervention amenable. Aggressive medical management, supportive care, time. Fortunately does seem to be feeling better already. Greatly appreciate cardiology assistance. Resident Activity Tracking Resident Involvement: Resident Care Provided Care Provided: Adult Hospital Medicine (1) CHF (congestive heart failure) Heart failure chronicity: unspecified Heart failure type: unspecified Qualified Code(s): I50.9 - Heart failure, unspecified
--- NOTE | 2025-02-12 08:15 | XRay Report ---
EXAM: XR chest 1V portable CLINICAL HISTORY: Chest pain, nonspecific TECHNIQUE: An X-ray image of the chest is obtained in AP portable projection. COMPARISON: Prior chest x-ray dated 02/02/2025 reviewed. FINDINGS: Pulmonary Parenchyma: Sternotomy sutures seen in place. Chest leads in place. Nonhomogeneous opacity left lower mid zone and right paracardiac region possible atelectasis/infection. Heart and Mediastinum: Cardiomegaly noted. No mediastinal widening or masses. No hilar or mediastinal lymphadenopathy. Bony Thorax: Bony thorax appears intact without fractures or deformities. Soft Tissues: Soft tissues overlying the chest wall are unremarkable. IMPRESSION: 1. Cardiomegaly seen. 2. Nonhomogeneous opacity left lower mid zone and right paracardiac region possible atelectasis/infection. No significant interval change since prior study. Electronically signed by Todd Melgar 02-12-2025 08:15 AM
[2025-02-12 08:18] LABS: INR 1.1 (0.9-1.1); Partial Thromboplastin Time 25 Seconds (21-31); Prothrombin Time 11.7 Seconds (9.0-12.0)
[2025-02-12] MEDS: BUMETANIDE 2 MG in SYRINGE 0 ML IV ONE ×2 (08:25→17:50)
--- NOTE | 2025-02-12 09:25 | Pre Anesthesia Assessment ---
Date of Service February 12, 2025 Pre Sedation Assessment Vital Signs Temp Pulse Pulse Resp BP BP Pulse Ox 02/12/25 09:00 64 16 99/48 L 98 02/12/25 09:00 63 22 100/43 L 98 02/12/25 06:16 54 L 24 98/33 L 97 02/12/25 06:15 55 L 02/12/25 06:13 97 02/12/25 06:13 97 02/12/25 06:01 97.7 F 87 20 105/46 L 96 O2 Del Method 02/12/25 09:00 Room Air 02/12/25 09:00 Room Air 02/12/25 06:16 02/12/25 06:15 02/12/25 06:13 Room Air 02/12/25 06:13 Room Air 02/12/25 06:01 Room Air Cardiovascular + bradycardic Respiratory + labored breathing Pre-Sedation Airway Assessment Smoking Status: Former smoker Hx Sleep Apnea: No Hx Difficult Intubation: No Short, Thick Neck: No Thyromental Distance: > or= 3.5 Finger Breadths Oral Cavity: + Dentures Mallampati Class: III ASA: ASA3 NPO Status Date of Last Intake of Fluids: 02/12/25 Time of Last Intake of Fluids: 05:30 Last Oral Intake of Fluids Comment: sips of water with meds Date of Last Intake of Solid Food: 02/11/25 Time of Last Intake of Solid Foods: 17:30 Procedure Planning Contraindications for Sedation: none Current Medications Reviewed: Yes Notes The planned sedation has been discussed with the patient. Informed Consent was obtained. I have identified the patient, determined the appropriateness of sedation and have assessed the patient immediately prior to the procedure. All medicine(s) and interventions are by my order.
[2025-02-12] MEDS: HEPARIN (PORCINE) 1000 UNIT/ML 10 ML (CATH LAB USE ONLY) ONE (10:20)
[2025-02-12] MEDS: NITROGLYCERIN/D5W 100MCG/ML 20ML SYR ONE (10:21)
[2025-02-12] MEDS: niCARdipine 2,000 MCG/20 ML SYR ONE (10:21)
[2025-02-12] MEDS: OPTIRAY 350 ONE (10:21)
[2025-02-12] MEDS: MIDAZOLAM HCL 1 MG/ML 2ML VIAL ONE (10:21)
[2025-02-12] MEDS: IODIXANOL (VISIPAQUE) 320 MG/ML 100ML IV ONE (10:21)
--- NOTE | 2025-02-12 10:31 | Post Anesthesia Assessment ---
Date of Service February 12, 2025 Post Sedation Assessment Vital Signs Temp Pulse Pulse Resp BP BP Pulse Ox 02/12/25 09:00 64 16 99/48 L 98 02/12/25 09:00 63 22 100/43 L 98 02/12/25 06:16 54 L 24 98/33 L 97 02/12/25 06:15 55 L 02/12/25 06:13 97 02/12/25 06:13 97 02/12/25 06:01 97.7 F 87 20 105/46 L 96 O2 Del Method 02/12/25 09:00 Room Air 02/12/25 09:00 Room Air 02/12/25 06:16 02/12/25 06:15 02/12/25 06:13 Room Air 02/12/25 06:13 Room Air 02/12/25 06:01 Room Air Recovery Score Activity: Moves 4 extremities Respiration: Deep Breath/Cough Circulation: +/-20% PreAnes Value Consciousness: Fully Awake Oxygen Saturation: O2 needed for >90% Discharge Sedation Level of Care: Fast Track Phase II
[2025-02-12 10:35] LABS: iSTAT Art Bld Gas Base Excess -2.0 mmol/L (-9-1.8)
[2025-02-12 10:36] LABS: iSTAT Art Bld Gas Base Excess -5.0 mmol/L (-9-1.8)
[2025-02-12 10:36] LABS: iSTAT Art Bld Gas Base Excess -1.0 mmol/L (-9-1.8)
--- NOTE | 2025-02-12 10:43 | Cardiac Catheterization ---
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: Concrete Engineering Technician Cardiac Status Clinical evaluation leading to the procedure CAD Presenation: Non STEMI Heart Failure: NYHA Class: CCS IV Diagnostic Physicians Name: Kyrie Venegas MD Closure Device Recommendations: Medical Therapy and/or Counseling Cardiac Cath Procedure Full Procedure Date February 12, 2025 Pre-Procedure Diagnosis Pre-Procedure Diagnosis: CAD and CHF AUC Score AUC Score: 8 Post-Procedure Diagnosis Post-Procedure Diagnosis: Severe CAD and Elevated Intracardiac Pressures Procedure(s) Performed Procedure(s) Performed: Coronary Angiography, Left Heart Cath, Right Heart Cath and Ultrasound Guided Vascular Access Electrologist Kyrie Venegas MD Talent Manager(s) Vannesa Estimated Blood Loss Estimated Blood Loss: 15 Medication(s) Medication(s): Fentanyl, Heparin, Lidocaine 1%, Nicardipine and Nitroglycerin Summary of Findings 1. Left main: No significant CAD. 2. Left anterior descending: Ostial LAD 50%. Proximal LAD stent occluded at distal margin. 3. Circumflex: Proximal circumflex 60%. Mid circumflex diffuse 50%. Early distal circumflex stent patent. Distal circumflex 80% at distal stent margin. Vessel extends distally is a very small caliber vessel and severely diseased diffusely. Small to medium caliber OM1 ostial/proximal 90%. CHASITY-3 flow. Small OM 2 ostial 98% with CHASITY II flow. 4. Right coronary artery: RCA is dominant. Proximal RCA 50%. Mid and distal RCA diffuse mild CAD. PL and PDA without significant CAD. Calcification noted throughout the RCA. Right to left collaterals. Indication: Acute heart failure, NSTEMI Access: 6 Fr right antecubital vein, 6 Fr slender right radial artery under ultrasound guidance Catheters: 6 Fr Row[place], 4 Fr JR4, 4 Fr JL 3.5 Findings: LM -calcified, normal caliber, no significant disease LAD -heavily calcified, 50% ostial, proximal stent 100% chronically occluded Circumflex -small to medium caliber, calcified, 50 to 60% mid segment disease. Distal segment stent with 100% acute appearing occlusion in distal portion. Very small diffusely diseased OM1, OM 2. RCA -dominant, heavily calcified, medium caliber, 50-60% proximal, mild diffuse late mid to distal disease Previous SVG x 2 documented to be occluded MCCORMACK to LAD patent on cath 06/03/2024 (not visualized today due to JOBY) RA 21 RV 66/24 PA 66/32 (44) PAWP 34, V wave 52 PaSat 48% AoSat 92% by pulse ox. Later 99% on O2 Nathan CO/CI 3.7/2.1 Thermo CO/CI 3.1/1.8 TPG 10 PVR 2.9 [facility] Arterial Closure: TR band Summary: 1. Severe [place] coronary artery disease -100% acute appearing occlusion of distal aspect of distal circumflex stent 100% chronic proximal LAD stent occlusion 50-60% proximal RCA 2. MCCORMACK to LADnot visualized on current study. Previously patent 06/03/2024 3. SVG x 2 previously shown to be occluded 4. Elevated left and right-sided filling pressures. 5. Severe pulmonary hypertension (combined pre-/postcapillary) 6. Borderline cardiac output Recommendations: Patient chest pain free and with acute on chronic renal failure recommend medical management of distal circumflex occlusion. Downstream PLB on prior cath noted to be small with diffuse disease. Continue heparin infusion for 48 hours Resume DAPT with aspirin, clopidogrel Continue IV diuresis Continued ASCVD risk factor modification Hemodynamics Rest Ao:: 114/50/77 Final Ao: 104/57/74 LV: -- Recommendations Recommendations: Medical Therapy and/or Counseling Specimens Specimens: None Radiation Exposure (mGy) 405 Contrast (mls) 10 Anesthesia Moderate 7406-3304 Procedural Complication(s) None Disposition PCU I attest to the content of the Intraoperative Record and any orders documented therein. Any exceptions are noted below. [facility] Card Cath Procedure Codes Cardiac Catheterization Procedure 1: Cardiovascular Cath Procedures: 89592 Coronaries and RHC Therapeutic Services & Ancillary Procedure 1: Cardiovascular Tx and Anc Procedures: 95697 Ultrasonic Guidance Vascular Access Moderate Sedation Procedure 1: Sedation/Anesthesia: 78864 Mod Sedation by the same physician;Init15 Min Child Age 5 & Up PG Care Time/CCT Total # of Minutes Spent Total Time Spent with Patient: Total time spent is greater than 50% in coordination of care (as documented) at patient's floor/unit and/or counseling patient:
--- NOTE | 2025-02-12 11:16 | Cardiology Consultation ---
Date of Consultation February 12, 2025 Assessment & Plan (1) CHF (congestive heart failure): ICM/HFrEFEF 25 % 01/2025; (long-term Entresto dcd due cost; no MRA with hyperkalemia) 2. CAD --post three-vessel CABG; Patent MCCORMACK-LAD, occluded pLAD stent, diffuse LCx disease, distal LCx stent now acutely occluded mild to moderate RCA disease with R->L collaterals 01/2025 Intolerant to Imdur 3. Moderate+ MR 4. Acute on chronic renal insufficiency 5. Hyponatremia 6. Type 2 diabetes 7. Anemia Patient admitted with recurrent acute heart failure. This is now her fourth hospitalization over the last 2 months with recurrent decompensation despite escalating doses of inpatient/outpatient diuretics. Picture complicated by worsened acute on chronic renal insufficiency and hyponatremia currently. On repeat testing today her LV function is worsened and MR more significant. Her distal circumflex stent is now occluded, potentially acutely. Significantly elevated right and left-sided filling pressures confirmed on catheterization. Fortunately at present patient hemodynamically and electrically stable with resolved chest pain. Plan: Medical management of acute distal circumflex occlusion. Downstream left PLB is a small vessel with diffuse disease. Feel risk of complication/JOBY outweigh potential benefits from intervention (only received 10 cc of contrast with). Continue heparin infusion for 48 hours Trend troponin until peak Resume DAPT with aspirin, clopidogrel Will need aggressive IV diuresis. Received Bumex 2 mg IV in ED. Plan on afternoon dose. If minimal response to initial Bumex consider starting IV furosemide infusion. Previously also previously responded to metolazone Follow standing weights, strict I's and O's and BMP Fluid restriction for hyponatremia Hold home metoprolol and losartan Continue atorvastatin Long-term recent worsening of her heart failure may be in part due to progression of mitral valve disease, potentially ischemic. After euvolemia may need repeat evaluation of mitral regurgitation to reassess severity and repair options if needed. Will follow History of Present Illness Attending Physician: Kyrie Hammer MD History of Present Illness Mrs. Xie is a very pleasant 79-year-old woman with history of CAD post three- vessel CABG in September of 2009 (known occluded vein grafts) and multiple prior PCI with stents to LAD/circumflex, type 2 diabetes on insulin, hypertension, DCIS post mastectomy and HFrEF (EF35%) seen urgently in the ED for acute heart failure and suspected ACS. Patient is well-known to me from the outpatient setting. She also follows with CHF clinic. 11/2024 was doing well on what was thought to be on maximally tolerated GDMT (BB, ARB, SGLT2), maintenance Lasix 20 mg daily. Echo at that time showed slight improvement in LVEF up to 40 to 45%, DD 2 and mild to moderate MR. Since that time has had multiple hospitalizations and recurrent heart failure despite diuretic adjustments. Initially admitted 01/09 with acute heart failure initially requiring BiPAP. BNP 1000, HS TropI 80 down to 70. Repeat limited echo showed unchanged LV function. Responded to IV Lasix, negative more than 7.5 L. Creatinine 1.3-1.6. Hospitalized again 01/22 - 01/25 and again 01/30 - 02/03. During last hospitalization creatinine up to 2.8. Eventually improved with IV diuretics and metolazone. Discharged on Lasix 80, metolazone 2.5 daily. Her sodium on discharge was 122, up to 129 yesterday. Was seen by CHF clinic 2 days ago, recorded weight up 10 pounds from discharge. Metolazone discontinued and started back on Bumex 2 mg daily. This morning woke up increasingly short of breath requiring her to sit on the edge of the bed. In route to hospital developed some central and right sided chest pressure. Chest discomfort different than prior anginal symptoms. On arrival to ED dyspneic but not hypoxic. Weight up an additional 8 pounds. ECG showed new T wave inversions/ST depressions inferiorly and in V3 through V6. Given fentanyl, started on heparin with improvement in chest discomfort. Received Bumex 2 mg IV x 1. Repeat echocardiogram showed worsened LV function EF 25% with worsened inferolateral hypokinesis and at least moderate MR. Underwent left and right heart catheterization which showed significantly elevated left and right-sided filling pressures with V wave up to 52, severe pulm hypertension and borderline cardiac output. Her RCA was widely patent. Distal circumflex stent appeared acutely occluded. Cardiac history: Patient was previously followed by Dr. Segundo and Dr. Torres for her cardiovascular care. Her coronary disease was initially diagnosed back in 2009 in the setting of stable angina. Her anginal equivalent was shortness of breath/fatigue with exertion and associated numbness in her hands bilaterally. She initially did well following bypass surgery but approximately 8 months later had recurrence of limiting shortness of breath and was found to have occluded vein grafts. At that time underwent stenting from LAD into diagonal and circumflex into OM. Recurrence of symptoms in 2013 and underwent stenting in pr oximal LAD. Last cardiac catheterization in 04/2015 showed patent stents, patent MCCORMACK and no significant new coronary artery disease. ECHO at that time showed preserved LV function with no significant valvular disease. She completed cardiac rehab following that evaluation. Most recent studies: Echo 05/2024: EF 35% anterior/lateral base to mid barton severely hypokinetic, moderate MR Cardiac cath 05/2024: Patent MCCORMACK to LAD. Occluded proximal LAD stent, 60% proximal and 50% mid LCx. Distal LCx stent patent with 80% stenosis at distal edge. OM1 90% ostial, small OM2 98% ostial. Proximal RCA 50% with right to left collaterals PFTs 08/2023: FEV1 75%, FVC 73%, FEV1/FVC 102 DSE 08/2023: Base to mid septal hypokinesis at stress. ST depressions inferior, V3 through V6 lasting >4 minutes into recovery. Mild LVH, EF 55% at rest Echo 10/2021: EF 65%, mild LVH, DD 1, mild MR PFTs 11/2021: Normal spirometry EGD/colonoscopy 08/2021: Schatzki ring, small hiatal hernia with ulcers/gastritis, sigmoid polyp, diverticulosis, nonbleeding internal hemorrhoids Allergies Allergy/AdvReac Type Severity Reaction Status Date / Time lisinopril Allergy Intermediate Cough Verified 02/11/25 13:59 isosorbide AdvReac Intermediate Headache Verified 02/11/25 13:59 Home Medications Medication Instructions Recorded Confirmed Type anastrozole 1 mg tablet 1 mg PO QAM 11/08/18 02/12/25 History coenzyme Q10 200 mg capsule 200 mg PO QAM 01/06/20 02/12/25 History vit C 250 mg-vit E 90 mg-zinc 40 1 tab PO BID 09/26/21 02/12/25 History mg-copper 1 [id number] capsule (PreserVision AREDS-2) Spacer for Inhaler #1 ea 09/27/21 02/11/25 Rx prevagen 1 tab PO DAILY 05/29/22 02/12/25 History pen needle, diabetic 32 gauge x #400 ea 05/23/23 02/11/25 Rx 5/32" (BD Ultra-Fine Suzette Pen Needle) nebulizer and compressor #1 ea 07/10/23 02/11/25 Rx budesonide 0.5 mg/2 mL suspension 0.5 mg (2 mL) inhalation BID #60 mL 07/30/23 02/12/25 Rx for nebulization cyanocobalamin (vitamin B-12) 1,000 mcg PO 3XWK 12/19/23 02/12/25 History 2,500 mcg tablet nitroglycerin 0.4 mg sublingual 0.4 mg sublingual Q5M PRN chest 01/08/24 02/12/25 Rx tablet (Nitrostat) pain #25 tabs albuterol sulfate 90 mcg/actuation 2 puff inhalation Q6H PRN Wheezing 01/17/24 02/12/25 Rx aerosol inhaler #18 grams clopidogrel 75 mg tablet 75 mg PO DAILY #90 tabs 05/28/24 02/12/25 Rx choline [id number] 1 tab PO QAM 05/31/24 02/12/25 History empagliflozin 10 mg tablet 10 mg PO DAILY #30 tabs 06/20/24 02/12/25 Rx (Jardiance) primidone 50 mg tablet (Mysoline) See Rx Instructions .Route .COMPLEX 06/20/24 02/12/25 History carbidopa 25 mg-levodopa 100 mg 1 tab PO TID #90 tabs 10/30/24 02/12/25 Rx tablet metformin 500 mg tablet 500 mg PO BIDWMEAL 90 days #180 12/16/24 02/12/25 Rx tabs losartan 50 mg tablet 50 mg PO DAILY #90 tabs 01/02/25 02/12/25 Rx atorvastatin 80 mg tablet 80 mg PO QPM #90 tabs 01/05/25 02/12/25 Rx blood sugar diagnostic (Accu-Chek #300 ea 01/13/25 02/11/25 Rx Guide test strips) blood-glucose meter (Accu-Chek #1 ea 01/13/25 02/11/25 Rx Guide Glucose Meter) lancets (Accu-Chek Softclix #300 ea 01/13/25 02/11/25 Rx Lancets) metoprolol succinate 200 mg 200 mg PO QAM #90 tabs 01/16/25 02/12/25 Rx tablet,extended release 24 hr alendronate 70 mg tablet 70 mg PO WK 01/22/25 02/12/25 History blood-glucose sensor (Dexcom G7 #9 ea 01/28/25 02/11/25 Rx Sensor device) insulin regular human 100 unit/mL 26 unit subcut BID 01/29/25 02/12/25 History (3 mL) subcutaneous pen (Novolin R FlexPen) ipratropium 0.5 mg-albuterol 3 mg 3 ml inhalation Q4H PRN wheezing 02/05/25 02/12/25 Rx (2.5 mg base)/3 mL nebulization #180 mL soln glucagon 3 mg/actuation nasal spray 3 mg intranasal .q 20 minutes PRN 02/09/25 02/12/25 Rx hypoglycemia #2 ea bumetanide 2 mg tablet 2 mg PO BID #90 tabs 02/10/25 02/12/25 Rx metolazone 2.5 mg tablet 2.5 mg PO Q OTHER DAY PRN weight 02/10/25 02/12/25 Rx gain, edema, SOB #30 tabs insulin NPH isoph U-100 human 100 26 unit subcut BID 02/11/25 02/12/25 History unit/mL (3 mL) subcutaneous pen (Novolin N FlexPen) Patient History Medical History Parkinsonism Essential tremor Chronic hyponatremia CHF (congestive heart failure) Type 2 diabetes mellitus with retinopathy of both eyes, with long-term current use of insulin Breast cancer (07/2017) left breast infiltrating ductal CA dx 07/2017 (ER+/ME+, Her 2 -) and right breast invasive ductal CA dx 11/2017 (ER+/ME+, Her 2 +), s/p elective B/L mastectomy with right axillary dissection (0/7 nodes +), on Arimedex since Jan 2018 CAD (coronary artery disease) Hypertension Hyperlipidemia Solitary pulmonary nodule stable, seen by pulm, no further follow up recommended Internal hemorrhoid Seborrheic keratoses NSTEMI (non-ST elevated myocardial infarction) Myocardial Infarction 2009 History of COVID-19 01/2021>MILD SYMPTOMS *RESOLVED Surgical History H/O bilateral mastectomy SURGERY ONLY>(NO LIMB RESTRICTION) NO RECONSTRUCTION H/O lumpectomy LEFT X 2 History of tooth extraction History of surgery Right Axillary Dissection, Bilateral Breast Scar Revision - 12/2017 [facility] History of colonoscopy History of trigger finger right thumb release History of open reduction and internal fixation (ORIF) procedure RT ANKLE History of cataract surgery RT/LEFT History of cardiac cath STENTS 06/2010 IN LAD (DIAG AND CX), 1 STENT 04/2011, AND 1 STENT 2013 IN LAD History of coronary artery bypass graft 3 VESSELS-2009 AT [facility] *FOLLOWS WITH DR. HAMMER Family History Sister Breast cancer Father Alcoholism Mother Heart disease Uncle Heart disease Daughter Family history of diabetes mellitus Other No family history of adverse response to anesthesia Denies family history of Ovarian cancer Prostate cancer Myocardial infarction Colorectal cancer Social History Smoking Status: Former smoker Tobacco Type: Cigarettes Age Started Using Tobacco: 13; Age Quit Using Tobacco: 43; packs per day: 0.75; Second Hand Exposure: No; Do You Dip or Chew Tobacco: No; Hx Alcohol Use: No Hx Substance Use: No Preferred Language: Nauruan Communication Ability: Effective Visual Impairment: No Limitations Hearing Ability: Normal Hopper Feeder Required: No Beliefs That Will Affect Care: None marital status: Current Living Situation: Spouse Current Living Situation Comment: lives at home with current occupational status: retired current occupation: Retired Other Information That Helps Us Care for You: No Feels Safe at Home: Yes Safety Concerns: Feels Safe At This Time Childhood Exposure to Second-Hand Smoke: Yes Diet: regular caffeine: Yes Dental Care, Regularly: No Physical Activity Frequency: Does not Exercise Seatbelt Use: always Sunscreen Use: Yes Assistive Devices: Cane Review of Systems Review of Systems: All systems reviewed & are unremarkable except as noted in HPI & below Physical Exam Physical Exam: General: Uncomfortable lying back, dyspneic HEENT: Sclerae anicteric Lungs: Clear to auscultation bilaterally, decreased breath sounds at bases, few crackles Cardiac: Regular rate and rhythm, 1-6 systolic ejection murmur. N Vascular: Diminished radial pulses bilaterally t. Diminished DP/PT pulses bilaterally. Abdomen: Soft, distended Extremities: Well perfused, no peripheral edema Neuro: Nonfocal Psych: Alert orient x3, normal affect and mood Results & Data Vital Signs (Past 12 Hours) Vital Signs Temp Pulse Pulse Resp BP BP Pulse Ox 02/12/25 09:00 64 16 99/48 L 98 02/12/25 09:00 63 22 100/43 L 98 02/12/25 06:16 54 L 24 98/33 L 97 02/12/25 06:15 55 L 02/12/25 06:13 97 02/12/25 06:13 97 02/12/25 06:01 97.7 F 87 20 105/46 L 96 O2 Del Method 02/12/25 09:00 Room Air 02/12/25 09:00 Room Air 02/12/25 06:16 02/12/25 06:15 02/12/25 06:13 Room Air 02/12/25 06:13 Room Air 02/12/25 06:01 Room Air PG Care Time/CCT Total # of Minutes Spent Total Time Spent with Patient: Total time spent is greater than 50% in coordination of care (as documented) at patient's floor/unit and/or counseling patient: Coding Level of Care Code 66295 ER DEPT VISIT HIGH LVL 5 Diagnoses CHF (congestive heart failure) I50.9
[2025-02-12] MEDS ORDERED: ONDANSETRON INJ 2 MG/ML 2 ML VIAL IV PRN (11:26)
[2025-02-12] MEDS ORDERED: ALBUTEROL HFA 8 GM INHALER INH PRN (11:26)
[2025-02-12] MEDS ORDERED: POLYETHYLENE (MIRALAX) 17 GM PACK PO PRN (11:26)
[2025-02-12] MEDS: ALBUT/IPRATROP 3MG/0.5MG NEB 3 ML VIAL INH PRN (11:45)
[2025-02-12] MEDS: BUDESONIDE 0.5 MG/2 ML VIAL (PULMICORT) INH SCH (11:46)
--- NOTE | 2025-02-12 12:05 | XCELERA ---
[id number] [id number]
[2025-02-12] MEDS: BUMETANIDE 1 MG TAB PO SCH (12:10)
[2025-02-12] MEDS: CARBIDOPA/LEVODOPA 25/100MG TAB PO SCH (12:10)
[2025-02-12] MEDS: LOSARTAN POTASSIUM 50 MG TAB PO SCH (12:11)
[2025-02-12] MEDS: CLOPIDOGREL BISULFATE 75 MG TAB PO SCH (12:11)
[2025-02-12] MEDS: METOPROLOL SUCC 50MG EXT REL TAB PO SCH (12:11)
[2025-02-12] MEDS: EMPAGLIFLOZIN 10 MG TAB PO SCH (12:11)
[2025-02-12] MEDS: ANASTROZOLE 1 MG TAB PO SCH (12:12)
[2025-02-12 15:26] LABS: ANTI-Xa, UFH(UnfractionatedHep 0.28 IU/ml (0.3-0.7)
--- NOTE | 2025-02-12 15:33 | Billing Data ---
Date of Service February 12, 2025 Coding Level of Care Code 83558 INT INP/OBS CARE
[2025-02-12] MEDS ORDERED: PHARMACY GLYCEMIC MGMT CONSULT PRN (16:11)
[2025-02-12] MEDS: INSULIN ASPART PER UNIT CHARGE SC SCH (17:00)
[2025-02-12] MEDS ORDERED: NITROGLYCERIN SL 0.4 MG/TAB TAB SL PRN (18:25)
--- NOTE | 2025-02-12 19:15 | Pharmacy Report ---
Pharmacy Glycemic Short Note 2 - Date of Service February 12, 2025 - Glycemic Short BSG Results (Last 24 hours): 02/12/25 02/12/25 02/12/25 06:11 11:35 16:40 Glucose 106 H POC Glucose 136 H 153 H OUTPATIENT ANTIDIABETIC REGIMEN: * NPH 26 units SC BIDM * Novolog 26 units SC BIDM * Metformin 500 mg PO BIDM * Empagliflozin 10 mg PO daily HbA1c: 8.3% (01/29/25) ASSESSMENT: * FH is an 79 year old female w/ NSTEMI now s/p cardiac catheterization * Pertient PMH includes CAD, CHF, T2DM, and breast cancer * On heparin gtt (mixed in dextrose), diet ordered * Prior admission earlier this month, patient on very similar regimen to current at that time * Apparent JOBY based on current SCr of 2.59 mg/dL (SCr of 1.3 in December) PLAN FOR INPATIENT GLYCEMIC CONTROL: * Empagliflozin 10 mg PO daily given today, but will hold given JOBY * Basal insulin * Lantus 25 units SC BID * Bolus insulin * NovoLog per scale ACHS or Q6hrs while NPO * Goal Range: Low 120 mg/dL - High 160 mg/dL * Correction Factor: 30 mg/dL/unit * Nutritional / Prandial insulin per carb ratio of 1 unit per 11 grams CHO consumed
[2025-02-12] MEDS: LANTUS PER UNIT CHARGE SQ SCH (20:24)
[2025-02-12] MEDS: MELATONIN 3 MG TAB PO PRN (20:24)
[2025-02-12] MEDS: ATORVASTATIN 40 MG TAB PO SCH (20:28)
[2025-02-12 22:10] LABS: ANTI-Xa, UFH(UnfractionatedHep 0.40 IU/ml (0.3-0.7)
--- NOTE | 2025-02-13 05:53 | Electrocardiogram Report ---
Test Reason : Blood Pressure : */* mmHG Vent. Rate : 55 BPM Atrial Rate : 55 BPM P-R Int : 154 ms QRS Dur : 84 ms QT Int : 460 ms P-R-T Axes : 82 10 225 degrees QTcB Int : 440 ms Sinus bradycardia Possible Septal infarct Abnormal ECG When compared with ECG of 01-Feb-2025 08:55, T wave inversion now evident in Inferior leads T wave inversion more evident in Anterior leads Confirmed by Josr Rodrigues ([id number]) on 02/13/2025 5:53:25 AM Referred By: REFERRED SELF Confirmed By: Josr Rodrigues
--- NOTE | 2025-02-13 05:54 | Electrocardiogram Report ---
Test Reason : Blood Pressure : */* mmHG Vent. Rate : 56 BPM Atrial Rate : 56 BPM P-R Int : 174 ms QRS Dur : 86 ms QT Int : 442 ms P-R-T Axes : 61 39 234 degrees QTcB Int : 426 ms Sinus bradycardia Low voltage QRS Septal infarct (cited on or before 12-Feb-2025) Abnormal ECG When compared with ECG of 12-Feb-2025 06:55, No significant change was found Confirmed by Josr Rodrigues ([id number]) on 02/13/2025 5:54:08 AM Referred By: REFERRED SELF Confirmed By: Josr Rodrigues
--- NOTE | 2025-02-13 05:54 | Electrocardiogram Report ---
Test Reason : Blood Pressure : */* mmHG Vent. Rate : 54 BPM Atrial Rate : 54 BPM P-R Int : 176 ms QRS Dur : 84 ms QT Int : 458 ms P-R-T Axes : 63 40 242 degrees QTcB Int : 434 ms Sinus bradycardia Septal infarct , age undetermined Abnormal ECG When compared with ECG of 12-Feb-2025 06:07, No significant change was found Confirmed by Josr Rodrigues ([id number]) on 02/13/2025 5:53:50 AM Referred By: REFERRED SELF Confirmed By: Josr Rodrigues
[2025-02-13] MEDS: ALENDRONATE SODIUM 70 MG TAB PO SCH (06:30)
[2025-02-13 06:37] LABS: Hematocrit (blood only) 24.5 % (37.0-47.0); Hemoglobin 8.2 g/dL (12.0-16.0); Immature Granulocytes # (auto) 0.04 K/uL (0.01-0.20); Immature Granulocytes % (auto) 0.4 %; Mean Corpuscular Hemoglobin 29.2 pg (25.0-34.0); Mean Corpuscular Volume 87.2 fL (80.0-100.0); Platelet Count 196 K/uL (130-400); RDW Standard Deviation 47.3 fL (36.4-46.3); Red Blood Count 2.81 M/uL (4.20-5.40); White Blood Count 9.38 K/ul (4.8-10.8)
[2025-02-13 06:58] LABS: ANTI-Xa, UFH(UnfractionatedHep 0.42 IU/ml (0.3-0.7); Anion Gap 15.0 (3-11); Blood Urea Nitrogen 95.0 mg/dl (6-23); Calcium 9.2 mg/dl (8.6-10.3); Carbon Dioxide 21.0 mmol/L (21-32); Chloride 89.0 mmol/L (98-107); Creatinine Clr Calc Pharmacy 16.4 ml/min; Glucose 137.0 mg/dl (70-99(Fasting)); Potassium 5.0 mmol/L (3.5-5.1); Sodium 125.0 mmol/L (136-145)
[2025-02-13] MEDS: ACETAMINOPHEN 325 MG TAB PO PRN (08:05)
[2025-02-13] MEDS: MAGNESIUM HYDROXIDE SUSP 30 ML UDC PO PRN (08:05)
[2025-02-13] MEDS: BUMETANIDE 2 MG in SYRINGE 0 ML IV ONE ×2 (11:45→12:55)
--- NOTE | 2025-02-13 12:36 | Hospitalist Progress Note ---
Date of Service February 13, 2025 Assessment & Plan (1) CHF (congestive heart failure): Mami William Xie is a 79 Y O Female with PMH of CKD stage IIIb, Type II DM on Insulin, CAD s/p CABG Chronic Heart Failure with reduced ejection fraction, Pulmonary Hypertension, Cirrhosis, CAD and Depression presented today with gradual worsening of shortness of breath for 3 days KIT PLANNER and chest pain that started morning prior to coming ED. EKG done in the ER revealed new T wave inversion and ST segment depression through leads V3 -V6. Repeat echo with significant decrease in ejection fraction to 30% compared to prior. She is being admitted for management of NSTEMI and Acute Exacerbation of Heart Failure. #NSTEMI - Came in with chest pain half an hour prior to ED visit. - EKG revealed new onset T wave inversion and ST segment depression -Cardiology on board. -Left Heart cath reveals 100% occlusion of distal aspect of distal circumflex stent; 100% chronic proximal LAD stent occlusion -Continue medical management as per cardio -Heparin drip for 48hr -Recommend DAPT. Patient is on Clopidogrel only at home. Will add aspirin - Metoprolol 200mg qAM at home. Will hold given her BP is soft and heart rate in the range of 50s -Llosartan 50mg Po daily at home. Hold given her low BP. -Continue Atorvastatin 80mg qPM - Sublingual Nitroglycerine and Morphine as needed #Acute Exacerbation of Chronic Heart Failure -Worsening shortness of breath for 3 days KIT PLANNER -Echo (02/12) shows Normal LV size, borderline concentric LVH with LVEF 25-30%, Global mild hypokinesis -Echo(12/05/2024) reveals LVEF of 40-35% -NSTEMI contributing to exacerbation of heart failure -Net diuresis ~600ml. Will target for net diuresis around 1l. Bumetanide 4mg IV this morning -Hold home PO bumetanide while she is getting IV -Measure I/Os with target diuresis~ 1l /24hr #Right upper quadrant tenderness -AST/ALT: WNL on admission -Denies any abdominal pain pattern associated with meal. -Will order YANET. -GI prophylaxis added. Protonix 40mg daily and Pepcid 10mg daily. -Small Bowel movement this morning. Miralax daily #Chronic Conditions Parkinson disease: continue Levodopa/Carbidopa DMII: current home regimen: metformin 500mg BID, jardiance 10mg, NPH 32 units prior to breakfast and dinner, regular insulin 26 units for breakfast, 20units prior to dinner. Will hold metformin. Continue Jardiance. Lantus 25 unit BID and ISS Hypertension: Continue metoprolol and Losartan Hyperlipidemia: Continue Atorvastatin breast cancer:patient with history of breast cancer and mastectomies -Continue anastrozole Code: Full DVT Prophylaxis: On heparin Dispo: PCU Admission and Anticipated Discharge Date Admission Date: February 12, 2025 Supervising Physician Co-Signing Physician Notes Patient seen and examined, chart reviewed, case discussed with Dr. Armas and I agree with the assessment and plan as above except as otherwise noted above +b/l crackles R>L RRR, +sm - edema Feels improved at bedside. Still clinically with some dyspnea/orthpnea but improving. No chest pain. Tearful due to a in the family for which is today. Appreciative of care All labs and images reviewed Continue diuresis, goal net negative 1-1.5L daily. Bumex titrated to 4mg. Continue BID. If inadequate output add metolazone 02/13. BB temporarily held for BP, anticipate starting Carvedilol and dose titrating as tolerated when able. Losartan held, resume and titrate when BP able to tolerate. D/c heparin 02/13 unless clinical bleeding --> d/c immediately. Resume sglt2 on dc Agree w/ above Subjective Fadra was seen as examined in the bedside this morning. She reports that shortness of breath is significantly improved compared to when she came in but still there. She denies chest pain/ tightness overnight and currently. Urine output with negative balance of 600ml overnight. Review of Systems Review of Systems: As per HPI Physical Exam Physical Exam: Constitutional: No acute distress, PILCCOD: Negative HEENT: Atraumatic, Normocephalic, No conjunctival injection CVS: S1 S2 Respiratory: Mild increased work of breathing, basal crackles +; No wheeze/rhonchi/stridor GI: Soft, Distended, tenderness in right upper and epigastric region MSK: No gross deformities noted Skin: Warm, Dry, No rashes Neuro: Alert, Oriented to TPP, No Focal deficit Results & Data Results & Data Vital Signs (Past 12 Hours) Vital Signs Temp Pulse Pulse Resp BP Pulse Ox Pulse Ox 02/13/25 11:26 97 02/13/25 11:13 36.4 C L 67 18 99/66 L 99 02/13/25 09:41 56 L 02/13/25 08:20 54 L 18 91/52 L 94 02/13/25 07:20 02/13/25 07:10 56 L 20 91 02/13/25 05:23 52 L 17 98 02/13/25 02:44 36.6 C 53 L 18 97/47 L 93 O2 Del Method O2 Del Method 02/13/25 11:26 Room Air 02/13/25 11:13 Room Air 02/13/25 09:41 02/13/25 08:20 Room Air 02/13/25 07:20 Room Air 02/13/25 07:10 Room Air 02/13/25 05:23 Room Air 02/13/25 02:44 Room Air Resident Activity Tracking Resident Involvement: Resident Care Provided Care Provided: Adult Hospital Medicine (1) CHF (congestive heart failure) Heart failure chronicity: unspecified Heart failure type: unspecified Qualified Code(s): I50.9 - Heart failure, unspecified
--- NOTE | 2025-02-13 13:47 | Cardiology Progress Note ---
Date of Service February 13, 2025 Assessment & Plan (1) CHF (congestive heart failure): Plan: ICM/HFrEFEF 25 % 01/2025; (long-term Entresto dcd due cost; no MRA with hyperkalemia) 2. CAD --post three-vessel CABG; Patent MCCORMACK-LAD, occluded pLAD stent, diffuse LCx disease, distal LCx stent now acutely occluded mild to moderate RCA disease with R->L collaterals 01/2025 Intolerant to Imdur 3. Moderate+ MR 4. Acute on chronic renal insufficiency 5. Hyponatremia 6. Type 2 diabetes 7. Anemia Still dyspneic, abdomen distended. Negative 600 yesterday. Wt down almost ~2lbs SCr stable. Sodium stable. Modest urine output with initial diuretics and congestion persists. Plan on continued IV diuresis today. Will increase loop diuretics today. Plan: Will give 4 mg of IV Bumex this morning, additional evening dose pending response Target >1 L negative today Continued medical management of distal circumflex occlusion. Continue heparin infusion for 48 hours. Can stop heparin tomorrow (or sooner if concern for bleeding). Continue DAPT with aspirin, clopidogrel Follow standing weights, strict I's and O's and BMP Fluid restriction for hyponatremia Hold home metoprolol and losartan Continue atorvastatin If urine output still limited today would consider addition of metolazone versus acetazolamide Long-term recent worsening of her heart failure may be in part due to progression of mitral valve disease, potentially ischemic. After euvolemia may need repeat evaluation of mitral regurgitation to reassess severity and repair options if needed. Will follow Admission and Anticipated Discharge Date Admission Date: February 12, 2025 Subjective Still short of breath this morning. No real change in symptoms. Telemetry reviewed -- Sinus rhythm, no events. Review of Systems Review of Systems: All systems reviewed & are unremarkable except as noted in HPI & below Physical Exam Physical Exam: General: dyspneic after coming back from bathroom HEENT: Sclerae anicteric Lungs: Clear to auscultation bilaterally, decreased breath sounds at bases Cardiac: Regular rate and rhythm, 1-6 systolic ejection murmur. Vascular: Diminished radial pulses bilaterally. Ecchymosis, no hematoma at access site. Diminished DP/PT pulses bilaterally. Abdomen: Soft, distended Extremities: Well perfused, no peripheral edema Neuro: Nonfocal Psych: Alert orient x3, normal affect and mood Results & Data Vital Signs (Past 12 Hours) Vital Signs Temp Pulse Pulse Resp BP Pulse Ox Pulse Ox 02/13/25 11:26 97 02/13/25 11:13 97.5 F L 67 18 99/66 L 99 02/13/25 09:41 56 L 02/13/25 08:20 54 L 18 91/52 L 94 02/13/25 07:20 02/13/25 07:10 56 L 20 91 02/13/25 05:23 52 L 17 98 02/13/25 02:44 97.9 F 53 L 18 97/47 L 93 O2 Del Method O2 Del Method 02/13/25 11:26 Room Air 02/13/25 11:13 Room Air 02/13/25 09:41 02/13/25 08:20 Room Air 02/13/25 07:20 Room Air 02/13/25 07:10 Room Air 02/13/25 05:23 Room Air 02/13/25 02:44 Room Air PG Care Time/CCT Total # of Minutes Spent Total Time Spent with Patient: Total time spent is greater than 50% in coordination of care (as documented) at patient's floor/unit and/or counseling patient: Coding Level of Care Code 14144 SUB INP/OBS CARE 2/35MIN Diagnoses CHF (congestive heart failure) I50.9
[2025-02-13] MEDS: POLYETHYLENE (MIRALAX) 17 GM PACK PO SCH (14:02)
[2025-02-13] MEDS: FAMOTIDINE 10 MG TABLET PO SCH (14:10)
--- NOTE | 2025-02-13 15:01 | Pharmacy Report ---
Pharmacy Glycemic Short Note 2 - Date of Service February 13, 2025 - Glycemic Short BSG Results (Last 24 hours): 02/12/25 02/12/25 02/13/25 16:40 19:35 06:02 Glucose 137 H POC Glucose 153 H 143 H 02/13/25 02/13/25 07:24 11:11 Glucose POC Glucose 177 H 253 H OUTPATIENT ANTIDIABETIC REGIMEN: * NPH 26 units SC BIDM * Novolog 26 units SC BIDM * Metformin 500 mg PO BIDM * Empagliflozin 10 mg PO daily HbA1c: 8.3% (01/29/25) ASSESSMENT: 02/13 * Fasting this morning 177 mg/dL- slightly reduced lantus scale for PM dose today * SCr remains elevated 2.52 today- monitor * Tightened carb ratio slightly this morning, consider further adjustments with trend today 02/12 * FH is an 79 year old female w/ NSTEMI now s/p cardiac catheterization * Pertient PMH includes CAD, CHF, T2DM, and breast cancer * On heparin gtt (mixed in dextrose), diet ordered * Prior admission earlier this month, patient on very similar regimen to current at that time * Apparent JOBY based on current SCr of 2.59 mg/dL (SCr of 1.3 in December) PLAN FOR INPATIENT GLYCEMIC CONTROL: * Empagliflozin 10 mg PO daily given today, but will hold given JOBY * Basal insulin * Lantus 25 units SC BID-- adjust to scale 01/08/20 with PM dose * Bolus insulin * NovoLog per scale ACHS or Q6hrs while NPO * Goal Range: Low 110 mg/dL - High 150 mg/dL * Correction Factor: 30 mg/dL/unit * Nutritional / Prandial insulin per carb ratio of 1 unit per 10 grams CHO consumed
[2025-02-13] MEDS: MoRPHine SULFATE 4 MG/ML 1 ML CARP\\VIAL IV PRN (19:46)
[2025-02-13] MEDS: ONDANSETRON INJ 2 MG/ML 2 ML VIAL IV PRN (19:47)
[2025-02-13] MEDS ORDERED: LANTUS PER UNIT CHARGE SQ SCH (21:00)
--- NOTE | 2025-02-13 21:53 | Ultrasound Report ---
Exam(s): US LIVER EXAM: US Abdomen Limited CLINICAL HISTORY: tenderness of right upper quadrant. TECHNIQUE: Real-time ultrasound of the abdomen with image documentation. COMPARISON: Ultrasound limited abdomen 01/09/2025 FINDINGS: Liver: The liver is slightly heterogeneous and mildly hyperechoic measuring 16.4 cm. Trace perihepatic fluid. Gallbladder: No cholelithiasis. The gallbladder wall measures 2.3 mm. Trace pericholecystic fluid appears to be regional rather than centered around the gallbladder. There is a reported negative sonographic Blanca's sign. Common bile duct: The common bile duct is borderline prominent for the patient's age, measuring 8.4 mm. Pancreas: Visualized segments of the pancreas are unremarkable. The pancreatic duct is within normal limits at 2.7 mm. Kidneys: The right kidney measures 10.5 cm. Pleural space: A right pleural effusion is noted. IMPRESSION: 1. No cholelithiasis. No gallbladder wall thickening. Trace pericholecystic fluid appears to be regional rather than centered around the gallbladder. There is a reported negative sonographic Blanca's sign. Findings predominantly argue against acute cholecystitis. 2. Borderline biliary dilatation with the patient's age with the common bile duct measuring 8.4 mm. No appreciable intrahepatic biliary dilatation. Please correlate with bilirubin levels. 3. Trace intraperitoneal fluid in the perihepatic region. 4. Small volume right pleural effusion. Electronically signed by: Dre Carvalho MD 02/13/25 21:52 PM
[2025-02-13] MEDS: LANTUS PER UNIT CHARGE SQ SCH (22:19)
[2025-02-13] MEDS: MoRPHine SULFATE 2 MG/ML CARP IV STA (22:20)
[2025-02-14 06:03] LABS: Hematocrit (blood only) 25.7 % (37.0-47.0); Hemoglobin 8.8 g/dL (12.0-16.0); Mean Corpuscular Hemoglobin 29.4 pg (25.0-34.0); Mean Corpuscular Volume 86.0 fL (80.0-100.0); Platelet Count 208 K/uL (130-400); RDW Standard Deviation 46.8 fL (36.4-46.3); Red Blood Count 2.99 M/uL (4.20-5.40); White Blood Count 16.76 K/ul (4.8-10.8)
[2025-02-14 06:22] LABS: Anion Gap 16.0 (3-11); Blood Urea Nitrogen 99.0 mg/dl (6-23); Calcium 9.0 mg/dl (8.6-10.3); Carbon Dioxide 22.0 mmol/L (21-32); Chloride 89.0 mmol/L (98-107); Creatinine Clr Calc Pharmacy 15.4 ml/min; Glucose 147.0 mg/dl (70-99(Fasting)); Potassium 4.8 mmol/L (3.5-5.1); Sodium 127.0 mmol/L (136-145)
[2025-02-14 06:23] LABS: ANTI-Xa, UFH(UnfractionatedHep < 0.10 IU/ml (0.3-0.7)
--- NOTE | 2025-02-14 06:45 | Hospitalist Progress Note ---
Date of Service February 14, 2025 Assessment & Plan (1) CHF (congestive heart failure): Plan William Xie is an 79yo F with PMH including CKD3b, DM2 on Insulin, CAD s/p CABG, HFrEF, Pulmonary Hypertension, Cirrhosis, and Depression who presented to the hospital 02/12 with worsening of SOB for 3 days and chest pain that started the morning of coming to the ER. Initial workup notable for EKG showing new T wave inversion and ST segment depressions, and echo showing significant decrease in EF compared to prior studies. She is admitted for management of NSTEMI and Acute CHF Exacerbation. #NSTEMI - Came in with chest pain half an hour prior to ED visit. EKG done in the ER revealed new T wave inversion and ST segment depression through leads V3 -V6. - Left heart cath showed 100% occlusion of distal aspect of LCX stent and 100% occlusion of proximal LAD stent - Cardiology on board. Continue medical management per their recs - Heparin drip for 48hr - discontinue 02/14 - Recommend DAPT. Patient is on Clopidogrel only at home. Aspirin added - Metoprolol 200mg qAM at home. Will hold given her BP is soft and heart rate in the range of 50s - On Losartan 50mg po daily at home. Will hold given her low BP. - Continue Atorvastatin 80mg qPM - Sublingual Nitroglycerine and Morphine as needed #Acute Exacerbation of Chronic Heart Failure - Worsening shortness of breath for 3 days prior to arrival. Echo on 02/12 showed: Normal LV size, borderline concentric LVH, mild global hypokinesis, and LVEF 25-30% (compared to Echo on 12/05/2024 w/ LVEF of 40-35%) - NSTEMI likely contributing to exacerbation of heart failure - I/O 24h net -573. Goal is 1L. Continue bumetanide 2mg BID. - Dry weight ~68kg. Today 73.6kg. Continue daily standing weights #Left upper quadrant pain/tenderness - Reports pain on left side/LUQ starting 02/13 PM - No peritoneal signs on exam but +firm, distended abdomen & nursing reports belching - CTAP ordered, w/o con given kidney fxn, to r/o intraabdominal pathology e.g. ileus #Right upper quadrant tenderness - AST/ALT: WNL on admission - Denies any abdominal pain pattern associated with meal. - RUQ US on 02/13 showed cholelithiasis, borderline (8.4mm) dilation of CBD, trace intraperitoneal fluid in the perihepatic region. - GI prophylaxis added: Protonix 40mg daily and Pepcid 10mg daily. - Small hard BM 02/13; none yet today. Continue Miralax daily #Parkinson disease - Continue Levodopa/Carbidopa #DM2 - Current home regimen: metformin 500mg BID, jardiance 10mg, NPH 32 units prior to breakfast and dinner, regular insulin 26u qAM and 20u in PM - Will hold metformin. Continue Jardiance. Lantus 25 unit qAM - ISS w/ goal 110-150, CF 30, CR 10, BSGs ACHS Hypertension - Holding metoprolol & losartan given low BPs during admission Hyperlipidemia - Continue Atorvastatin Breast cancer s/p mastectomies -Continue anastrozole Diet: DM2/HH Dispo: PCU Admission and Anticipated Discharge Date Admission Date: February 12, 2025 Supervising Physician Co-Signing Physician Notes Patient seen and examined, chart reviewed, case discussed with Dr. Nielson and I agree with the assessment and plan as above except as otherwise noted above. Increased abdominal discomfort today, now more in the left quadrant compared to the right. Initially was pending a KUB however given increased pain on reassessment was switched to to CTA/P. This shows mild laded small bowel loops with air-fluid levels, functional/ileus versus developing SBO. She is passing gas. Does have some air in the urinary bladder and possible inflammatory change, with some perinephric stranding. Mural thickening of the rectum with some smudging suggestive of proctitis. Clinically she has increased gaseous distention of the abdomen and appears worse today. She has a leukocytosis although no left shift. She is afebrile. Covered empirically with Unasyn. UA is infected appearing. will temporarily give bowel rest. She does not show a acute transition point or have rebound/guarding on exam. She is not having any ongoing chest pain/discomfort. Out of bed to chair as tolerated. Creatinine slightly elevated today. Superior leon of abdominal CT with bibasilar effusions. Sodium is rising. Net -600 cc overnight. Subjective NAEO. No chest pain or dyspnea when interviewed today. Did need 2L oxygen briefly last night, but now doing well on RA. Does report pain in her L side (indicates more flank than abd). Per nursing, ambulating well. No BM. Has been belching. Review of Systems Review of Systems: As per HPI Physical Exam Physical Exam: Gen: NAD, WD/WN HEENT: NCAT, normal conjunctiva, MMM, no LAD CV: RRR, no murmur appreciated, S1/S2 normal, mild LE edema Resp: CTAB, symmetrical chest rise, breathing non-labored Abd: Distended, nontender, no rigidity or guarding, normoactive BS, no masses Skin: Warm, dry, well-perfused, no rashes Neuro: AOx3, CN II-XII grossly intact, no focal deficits Results & Data Results & Data Vital Signs (Past 12 Hours) Vital Signs Temp Pulse Pulse Resp BP Pulse Ox O2 Del Method 02/14/25 04:22 36.4 C L 73 17 116/75 99 Room Air 02/13/25 23:45 36.5 C 68 22 127/70 92 Room Air 02/13/25 22:00 104 H 02/13/25 22:00 67 02/13/25 19:56 36.7 C 64 27 H 120/69 92 Room Air 02/13/25 19:30 Room Air Resident Activity Tracking Resident Involvement: Resident Care Provided Care Provided: Adult Hospital Medicine (1) CHF (congestive heart failure) Heart failure chronicity: unspecified Heart failure type: unspecified Qualified Code(s): I50.9 - Heart failure, unspecified
[2025-02-14] MEDS ORDERED: HEPARIN SOD (PORCINE) 1000 UNIT/ML IV ONE (06:54)
[2025-02-14] MEDS: LANTUS PER UNIT CHARGE SQ SCH (09:06)
[2025-02-14] MEDS: HEPARIN SOD (PORCINE) 1000 UNIT/ML IV ONE (09:07)
--- NOTE | 2025-02-14 11:03 | Cardiology Progress Note ---
Date of Service February 14, 2025 Assessment & Plan (1) CHF (congestive heart failure): (2) Ischemic cardiomyopathy: (3) CKD stage 3b, GFR 30-44 ml/min: (4) Elevated troponin: Plan 1. CHF (congestive heart failure): Plan: ICM/HFrEFEF 25 % 01/2025; (long-term Entresto dcd due cost; no MRA with hyperkalemia); could try valsartan, but not sure if her Cr will allow. 2. CAD --post three-vessel CABG; Patent MCCORMACK-LAD, occluded prox LAD stent, diffuse LCx disease, distal LCx stent now acutely occluded mild to moderate RCA disease with R->L collaterals 01/2025 Intolerant to Imdur 3. Moderate+ MR 4. Acute on chronic renal insufficiency 5. Hyponatremia 6. Type 2 diabetes 7. Anemia Plan: Will give 4 mg of IV Bumex this morning, additional evening dose pending response Target >1 L negative today Continued medical management of distal circumflex occlusion. Continue heparin infusion for 48 hours. Can stop heparin tomorrow (or sooner if concern for bleeding). Continue DAPT with aspirin, clopidogrel Follow standing weights, strict I's and O's and BMP Fluid restriction for hyponatremia Hold home metoprolol and losartan Continue atorvastatin If urine output still limited today would consider addition of metolazone versus acetazolamide Admission and Anticipated Discharge Date Admission Date: February 12, 2025 Subjective follow up for CHF. Converted to NSR overnight-remains in NSR 70s Breathing better Review of Systems Review of Systems: All systems reviewed & are unremarkable except as noted in HPI & below Physical Exam Physical Exam: General: resting comfortably HEENT: Sclerae anicteric Lungs: Clear to auscultation bilaterally, decreased breath sounds at bases Cardiac: Regular rate and rhythm, 1-6 systolic ejection murmur. Vascular: Diminished radial pulses bilaterally. Ecchymosis, no hematoma at access site. Diminished DP/PT pulses bilaterally. Abdomen: Soft, distended Extremities: Well perfused, no peripheral edema Neuro: Nonfocal Psych: Alert orient x3, normal affect and mood Results & Data Vital Signs (Past 12 Hours) Vital Signs Temp Pulse Resp BP Pulse Ox O2 Del Method FiO2 02/14/25 10:31 36.8 C 74 22 107/62 94 Room Air 02/14/25 07:57 36.4 C L 72 26 H 127/72 96 Room Air 02/14/25 07:21 71 15 88 L Room Air 21 02/14/25 04:22 36.4 C L 73 17 116/75 99 Room Air 02/13/25 23:45 36.5 C 68 22 127/70 92 Room Air Laboratory Results Abnormal lab results 02/13/25 02/14/25 02/14/25 Range/Units 20:28 05:22 07:24 WBC 16.76 H (4.8-10.8) K/ul RBC 2.99 L (4.20-5.40) M/uL Hgb 8.8 L (12.0-16.0) g/dL Hct 25.7 L (37.0-47.0) % RDW Std Deviation 46.8 H (36.4-46.3) fL RDW Coeff of Sarina 14.8 H (11.5-14.5) % Heparin Anti-Xa, Unfract < 0.10 L (0.3-0.7) IU/ml Sodium 127 L (136-145) mmol/L Chloride 89 L (98-107) mmol/L Anion Gap 16 H (3-11) BUN 99 H (6-23) mg/dl Creatinine 2.69 H (0.6-1.2) mg/dl BUN/Creatinine Ratio 36.8 H (10-20) Glucose 147 H (70-99(Fasting)) mg/dl POC Glucose 158 H 184 H (70-99) mg/dl AST (13-39) U/L Urine Appearance (Clear) Urine Glucose (UA) (Negative) Urine Blood (Negative) Ur Leukocyte Esterase (Negative) Urine WBC (Auto) (0-5) /hpf U Hyaline Cast (Auto) (0-2) /lpf U Epithel Cells (Auto) (0-2) /hpf Urine Bacteria (Auto) (None Seen) 02/14/25 02/14/25 02/14/25 Range/Units 11:28 12:56 16:10 WBC (4.8-10.8) K/ul RBC (4.20-5.40) M/uL Hgb (12.0-16.0) g/dL Hct (37.0-47.0) % RDW Std Deviation (36.4-46.3) fL RDW Coeff of Sarina (11.5-14.5) % Heparin Anti-Xa, Unfract 1.32 H* (0.3-0.7) IU/ml Sodium (136-145) mmol/L Chloride (98-107) mmol/L Anion Gap (3-11) BUN (6-23) mg/dl Creatinine (0.6-1.2) mg/dl BUN/Creatinine Ratio (10-20) Glucose (70-99(Fasting)) mg/dl POC Glucose 224 H 187 H (70-99) mg/dl AST 43 H (13-39) U/L Urine Appearance (Clear) Urine Glucose (UA) (Negative) Urine Blood (Negative) Ur Leukocyte Esterase (Negative) Urine WBC (Auto) (0-5) /hpf U Hyaline Cast (Auto) (0-2) /lpf U Epithel Cells (Auto) (0-2) /hpf Urine Bacteria (Auto) (None Seen) 02/14/25 Range/Units Unknown WBC (4.8-10.8) K/ul RBC (4.20-5.40) M/uL Hgb (12.0-16.0) g/dL Hct (37.0-47.0) % RDW Std Deviation (36.4-46.3) fL RDW Coeff of Sarina (11.5-14.5) % Heparin Anti-Xa, Unfract (0.3-0.7) IU/ml Sodium (136-145) mmol/L Chloride (98-107) mmol/L Anion Gap (3-11) BUN (6-23) mg/dl Creatinine (0.6-1.2) mg/dl BUN/Creatinine Ratio (10-20) Glucose (70-99(Fasting)) mg/dl POC Glucose (70-99) mg/dl AST (13-39) U/L Urine Appearance Cloudy A (Clear) Urine Glucose (UA) 1+ H (Negative) Urine Blood 1+ H (Negative) Ur Leukocyte Esterase 3+ H (Negative) Urine WBC (Auto) >50 H (0-5) /hpf U Hyaline Cast (Auto) 3-5 H (0-2) /lpf U Epithel Cells (Auto) 3-5 H (0-2) /hpf Urine Bacteria (Auto) 4+ H (None Seen) (1) CHF (congestive heart failure) Heart failure chronicity: unspecified Heart failure type: unspecified Qualified Code(s): I50.9 - Heart failure, unspecified
--- NOTE | 2025-02-14 12:32 | CT Scan Report ---
EXAM: CT abd pelvis wo con CLINICAL HISTORY: abd pain, diminished BS TECHNIQUE: Non-contrast CT of the abdomen and pelvis was performed, with the following protocol: axial images, and reconstructed coronal and sagittal images. No intravenous contrast was administered. One of the following dose reduction techniques was utilized for this exam: Automated exposure control, adjustment of the mA and/or kV according to patient size, and use of iterative reconstruction. COMPARISON: Comparison is made with 05/25/2024. FINDINGS: Abdomen: Liver: Normal in size, shape, and density. Unchanged small left lobe cyst. Gallbladder and Biliary System: The gallbladder is prominent and unchanged. No wall thickening, pericholecystic fluid, or gallstones were identified. Pancreas: Pancreatic head, body, and tail are visualized and appear normal in size and density. No pancreatic masses or calcifications were noted. Spleen: Normal in size, shape, and density. No splenic lesions or masses were identified. Kidneys and Adrenal Glands: Both kidneys are normal in size, shape, and position. Cortical thickness is within normal limits. Mild left pelvicalyceal system nd ureter down to the urinary bladder. No obvious renal stones could be noted. No renal calculi. A few small air bubbles within calicex on the left. Mild progression of perinephric stranding. Adrenal glands are unremarkable. Appendix: The appendix could not be traced. Pelvis: Urinary Bladder: Normal in contour and wall thickness. No intraluminal lesions. A small amount of air is in the urinary bladder. Uterus: age-related atrophy. No masses or abnormal thickening. Ovaries: Not well visualized but no gross abnormalities noted. Vagina: Normal in contour and wall thickness. Cervix: No evidence of mass or abnormal thickening. Peritoneal and Retroperitoneal Structures: Mild ascites noted. No new lymphadenopathy was noted. Bowel: A small hiatus hernia. Mildly dilated small bowel loops with air-fluid levels. Minimal circumferential mural thickening of the rectum with slight smudging of the mesorectal and presacral fat planes could be a sequel of proctitis Bones and Soft Tissues: Pelvic bones and soft tissues are unremarkable. No fractures or abnormal masses were identified. Unchanged lumbar spine spondylotic changes. Diffuse osteopenia Grade I L4-5 antrolithesis. IMPRESSION: 1. Mildly dilated small bowel loops with air-fluid levels. It could be functional, but small bowel obstruction cannot be ruled out. new 2. A small amount of air is in the urinary bladder. After caterisation or current inflammatory changes. Correlate with hx. 3. Mild left backpressure changes. No obvious renal stones could be noted. New 4. A few small air bubbles within calicex on the left ( new). Mild progression of perinephric stranding. After caterisation or inflammatory disease. Correlate clinically and with hx. 5. Progression of pleural effusion. 6. Mild ascites noted. new 7. Minimal circumferential mural thickening of the rectum with slight smudging of the mesorectal and presacral fat planes could be a sequel of proctitis. new 8. The gallbladder is prominent and unchanged. Electronically signed by Todd Melgar 02-14-2025 12:31 PM
[2025-02-14 13:37] LABS: Appearance Urine Cloudy (Clear); Bacteria Urine Automated 4+ (None Seen); Glucose Urine UA 1+ (Negative); RBC Urine Automated 0-2 /hpf (0-2); WBC Urine Automated >50 /hpf (0-5)
[2025-02-14 13:59] LABS: ANTI-Xa, UFH(UnfractionatedHep 1.32 IU/ml (0.3-0.7)
[2025-02-14 14:03] LABS: Alanine Aminotransferase 11.0 U/L (7-52); Albumin Level 4.0 gm/dl (3.4-5.0); Alkaline Phosphatase 60.0 U/L (34-104); Bilirubin,Total 0.4 mg/dl (0.2-1.0); Total Protein 6.9 gm/dl (6.0-8.3)
[2025-02-14] MEDS: AMPICILLIN/SULBACTAM SOD 1,500 MG/100 ML BAG IV SCH (14:08)
[2025-02-14] MEDS: MoRPHine SULFATE 4 MG/ML 1 ML CARP\\VIAL IV PRN (20:28)
[2025-02-15] MEDS: AMPICILLIN/SULBACTAM SOD 1,500 MG/100 ML BAG IV SCH ×2 (01:32→23:54)
--- NOTE | 2025-02-15 06:38 | Hospitalist Progress Note ---
Date of Service February 15, 2025 Assessment & Plan (1) CHF (congestive heart failure): Plan William Xie is an 79yo F with PMH including CKD3b, DM2 on Insulin, CAD s/p CABG, HFrEF, Pulmonary Hypertension, Cirrhosis, and Depression who presented to the hospital 02/12 with worsening of SOB for 3 days and chest pain that started the morning of coming to the ER. Initial workup notable for EKG showing new T wave inversion and ST segment depressions, and echo showing significant decrease in EF compared to prior studies. She is admitted for management of NSTEMI and Acute CHF Exacerbation. #NSTEMI - Came in with chest pain half an hour prior to ED visit. EKG done in the ER revealed new T wave inversion and ST segment depression through leads V3 -V6. - Left heart cath showed 100% occlusion of distal aspect of LCX stent and 100% occlusion of proximal LAD stent - Cardiology on board. Continue medical management per their recs - Heparin drip for 48hr - discontinued 02/14 - Recommend DAPT. Patient is on Clopidogrel only at home. Aspirin added - Metoprolol 200mg qAM at home. Will hold given her BP is soft and heart rate in the range of 50s - On Losartan 50mg po daily at home. Will hold given her low BP. - Continue Atorvastatin 80mg qPM - Sublingual Nitroglycerine and Morphine as needed #Acute Exacerbation of Chronic Heart Failure - Worsening shortness of breath for 3 days prior to arrival. Echo on 02/12 showed: Normal LV size, borderline concentric LVH, mild global hypokinesis, and LVEF 25-30% (compared to Echo on 12/05/2024 w/ LVEF of 40-35%) - NSTEMI likely contributing to exacerbation of heart failure - Bumex held while NPO. Abd distension remains. I/O 24h net +89. - Dry weight ~68kg. Today 72.7kg. Continue daily standing weights #RUQ tenderness / LUQ tenderness / UTI - AST/ALT: WNL on admission - Denies any pattern associated with meals - RUQ US on 02/13 showed cholelithiasis, borderline (8.4mm) dilation of CBD, trace intraperitoneal fluid in the perihepatic region. - CTAP on 02/14 showed: Mildly dilated small bowel loops with air-fluid levels, cannot r/o SBO; Small amount of air in the urinary bladder, may be post-cath or current inflammatory changes; Mild left back pressure changes, no obvious renal stones; mild progression of perinephric stranding; Progression of pleural effusion; Mild ascites, new finding; Minimal circumferential mural thickening of the rectum with slight smudging of the mesorectal and presacral fat planes, could be proctitis, new finding - UA obtained 02/14 was cloudy with 1+ gluc, 1+ blood, 3+ LE, >50 WBC, and 4+ bacteria. Ucx pending - Started on Unasyn to cover possible cystitis and proctitis - Made NPO except meds for possible SBO - Having small, hard BMs; continue Miralax daily - Continue GI prophylaxis with Protonix 40mg daily and Pepcid 10mg daily - Morphine 2mg available q6h prn for pain #Parkinson disease - Continue Levodopa/Carbidopa #DM2 - Current home regimen: metformin 500mg BID, jardiance 10mg, NPH 32 units prior to breakfast and dinner, regular insulin 26u qAM and 20u in PM - Will hold metformin. Continue Jardiance. Lantus 25 unit qAM - SSI w/ goal 110-150, CF 30, CR 10, BSGs ACHS Hypertension - Holding metoprolol & losartan given low BPs during admission Hyperlipidemia - Continue Atorvastatin Breast cancer s/p mastectomies -Continue anastrozole Diet: NPO Dispo: PCU Admission and Anticipated Discharge Date Admission Date: February 12, 2025 Supervising Physician Co-Signing Physician Notes Patient seen and examined, chart reviewed, case discussed with Dr. Nisreen MD and I agree with the assessment and plan as above except as otherwise noted Labs and images reviewed Converted overnight 02/14, remains in sinus with adequate rate control. Slightly hypotensive today. Has been undergoing diuresis for HFrEF with last EF 30%. Dry weight is around 68 kg, today 73.6 kg. Bumex held due to concerns for contraction yesterday. Cardiology following, had recieved a spot dose of lasix 02/14 for weight gain/bnp/hypxia and hyponatremia --> net negative approximately 600 cc and 900 cc of output. Did have a significant rise in creatinine today from 2.6 -> 3.4. She remains on nasal cannula. Hyponatremia is correcting, potassium slightly elevated 5.2.? Poor renal flow lining creatinine elevated versus intravascular contraction, however creatinine has risen she remains with an oxygen requirement, basilar crackles but no rales. Her leg edema has improved. Admitting x-ray was with stable left lower lobe opacity, she does have a leukocytosis. She was started on Unasyn yesterday. MRSA nare neagtive. Serial chest x-ray with some residual effusion but overall no overt pulmonary edema. Suspect she is dry/contracted, and given creatinine rise mild hyperkalemia will give 500 cc of fluid back at maintenance and trend BMP, reassess and give IVF in increments of 500cc until euvolemic and renal function improving. Cautious fluids given newly reduced EF and narrow euvolemic range. Lower suspicion for cardiorenal. Her abdominal symptoms are progressing. She is now passing gas and had some bowel movements, feels her abdomen is decompressing and she has much less pain today. Overall she reports she feels greatly improved from yesterday. Diet advanced to clears and will continue a bowel regimen, can continue to advance as tolerated and as she progresses. Otherwise agree with above Subjective NAEO. Reports feeling much better today than yesterday. Denies any pain or dyspnea. Per telemetry, has been nsr in the 70s. Maintaining good O2 sat, intermittently requiring 2L n.c. No new complaints. Review of Systems Review of Systems: As per HPI Physical Exam Physical Exam: Gen: NAD, WD/WN HEENT: NCAT, normal conjunctiva, MMM, no LAD CV: RRR, no murmur appreciated, S1/S2 normal, mild LE edema Resp: CTAB, symmetrical chest rise, breathing non-labored Abd: Soft, +distended, nontender, no rigidity or guarding, +BSx4, no masses Skin: Warm, dry, well-perfused, no rashes Neuro: AOx3, CN II-XII grossly intact, no focal deficits Results & Data Results & Data Vital Signs (Past 12 Hours) Vital Signs Temp Pulse Pulse Resp BP Pulse Ox O2 Del Method 02/15/25 03:50 36.8 C 77 22 109/58 L 92 Room Air 02/14/25 23:55 36.6 C 78 24 101/62 100 Nasal Cannula 02/14/25 22:00 Room Air 02/14/25 21:57 76 02/14/25 19:45 36.6 C 80 25 H 111/67 96 Room Air 02/14/25 19:35 81 20 96 Room Air O2 Flow Rate 02/15/25 03:50 02/14/25 23:55 2 02/14/25 22:00 02/14/25 21:57 02/14/25 19:45 02/14/25 19:35 Resident Activity Tracking Resident Involvement: Resident Care Provided Care Provided: Adult Hospital Medicine (1) CHF (congestive heart failure) Heart failure chronicity: unspecified Heart failure type: unspecified Qualified Code(s): I50.9 - Heart failure, unspecified
[2025-02-15 06:50] LABS: Hematocrit (blood only) 25.5 % (37.0-47.0); Hemoglobin 8.4 g/dL (12.0-16.0); Mean Corpuscular Hemoglobin 29.0 pg (25.0-34.0); Mean Corpuscular Volume 87.9 fL (80.0-100.0); Platelet Count 171 K/uL (130-400); RDW Standard Deviation 47.8 fL (36.4-46.3); Red Blood Count 2.90 M/uL (4.20-5.40); White Blood Count 16.23 K/ul (4.8-10.8)
[2025-02-15 07:10] LABS: Anion Gap 14.0 (3-11); Blood Urea Nitrogen 105.0 mg/dl (6-23); Calcium 8.8 mg/dl (8.6-10.3); Carbon Dioxide 24.0 mmol/L (21-32); Chloride 90.0 mmol/L (98-107); Creatinine Clr Calc Pharmacy 12.1 ml/min; Glucose 93.0 mg/dl (70-99(Fasting)); Potassium 5.2 mmol/L (3.5-5.1); Sodium 128.0 mmol/L (136-145)
--- NOTE | 2025-02-15 12:29 | XRay Report ---
Exam: 2 views of the chest Exam reason: Hypoxia Comparison: 02/12/2025 Technique: PA and lateral views of the chest were obtained Findings: The lungs are well-expanded. There is redemonstration of a small to moderate-sized left-sided pleural effusion. There is redemonstration of multiple median sternotomy wires. There is stable mild to moderate cardiomegaly. There is no pneumothorax and no acute bony abnormalities are seen. Impression: 1. Mild to moderate size left-sided pleural effusion. 2. Mild to moderate cardiomegaly without definite signs of failure. Electronically signed by Perry Izaguirre 02-15-2025 12:29 PM
[2025-02-15] MEDS: SODIUM CHLORIDE 0.9% 500 ML IV SCH (14:06)
--- NOTE | 2025-02-15 15:14 | Cardiology Progress Note ---
Date of Service February 15, 2025 Assessment & Plan (1) CHF (congestive heart failure): (2) Ischemic cardiomyopathy: (3) CKD stage 3b, GFR 30-44 ml/min: (4) Elevated troponin: Plan Holding diuresis given JOBY. appears comfortable for now no med changes for now. Admission and Anticipated Discharge Date Admission Date: February 12, 2025 Subjective Reports feeling much better today than yesterday. Starting clear liquids. Denies any pain or dyspnea. Per telemetry nsr in the 70s. Maintaining good O2 sat, intermittently requiring 2L n.c. No new complaints. Review of Systems Review of Systems: All systems reviewed & are unremarkable except as noted in HPI & below Physical Exam Physical Exam: General: resting comfortably HEENT: Sclerae anicteric Lungs: Clear to auscultation bilaterally, decreased breath sounds at bases Cardiac: Regular rate and rhythm, 1-6 systolic ejection murmur. Vascular: Diminished radial pulses bilaterally. Ecchymosis, no hematoma at access site. Diminished DP/PT pulses bilaterally. Abdomen: Soft, distended Extremities: Well perfused, no peripheral edema Neuro: Nonfocal Psych: Alert orient x3, normal affect and mood Results & Data Vital Signs (Past 12 Hours) Vital Signs Temp Pulse Pulse Resp BP Pulse Ox O2 Del Method 02/15/25 14:24 87 02/15/25 11:00 02/15/25 10:37 36.9 C 79 30 H 95/57 L 100 Nasal Cannula 02/15/25 07:19 36.8 C 77 22 99/65 L 97 Nasal Cannula 02/15/25 07:08 71 29 H 95 Nasal Cannula 02/15/25 05:46 79 02/15/25 03:50 36.8 C 77 22 109/58 L 92 Room Air O2 Del Method O2 Flow Rate 02/15/25 14:24 02/15/25 11:00 Room Air 02/15/25 10:37 02/15/25 07:19 02/15/25 07:08 3 02/15/25 05:46 02/15/25 03:50 Laboratory Results Abnormal lab results 02/15/25 02/15/25 02/15/25 Range/Units 06:24 11:02 15:36 WBC 16.23 H (4.8-10.8) K/ul RBC 2.90 L (4.20-5.40) M/uL Hgb 8.4 L (12.0-16.0) g/dL Hct 25.5 L (37.0-47.0) % RDW Std Deviation 47.8 H (36.4-46.3) fL RDW Coeff of Sarina 14.9 H (11.5-14.5) % Sodium 128 L 125 L (136-145) mmol/L Potassium 5.2 H 5.7 H (3.5-5.1) mmol/L Chloride 90 L 89 L (98-107) mmol/L Anion Gap 14 H 12 H (3-11) BUN 105 H 103 H (6-23) mg/dl Creatinine 3.41 H D 3.75 H D (0.6-1.2) mg/dl BUN/Creatinine Ratio 30.8 H 27.5 H (10-20) Glucose 145 H (70-99(Fasting)) mg/dl POC Glucose 115 H (70-99) mg/dl Calcium (8.6-10.3) mg/dl 02/15/25 02/15/25 02/15/25 Range/Units 15:58 19:26 21:11 WBC (4.8-10.8) K/ul RBC (4.20-5.40) M/uL Hgb (12.0-16.0) g/dL Hct (37.0-47.0) % RDW Std Deviation (36.4-46.3) fL RDW Coeff of Sarina (11.5-14.5) % Sodium 124 L (136-145) mmol/L Potassium 5.5 H (3.5-5.1) mmol/L Chloride 89 L (98-107) mmol/L Anion Gap 13 H (3-11) BUN 104 H (6-23) mg/dl Creatinine 3.82 H (0.6-1.2) mg/dl BUN/Creatinine Ratio 27.2 H (10-20) Glucose 218 H (70-99(Fasting)) mg/dl POC Glucose 166 H 252 H (70-99) mg/dl Calcium 8.4 L (8.6-10.3) mg/dl Medications Administered Current Inpatient Medications Acetaminophen (Acetaminophen 325 Mg Tab) 650 mg PO Q4H PRN PRN Reason: Pain or Fever Stop: 03/14/25 11:25 Last Admin: 02/13/25 08:05 Dose: 650 mg Albuterol (Albuterol Hfa 8 Gm Inhaler) 2 puffs INH Q6H PRN PRN Reason: Wheezing Stop: 03/14/25 11:25 Albuterol (Albut/Ipratrop 3mg/0.5mg Neb 3 Ml Vial) 3 ml INH Q4H PRN; Protocol PRN Reason: wheezing Stop: 03/14/25 11:25 Last Admin: 02/13/25 05:22 Dose: 3 ml Alendronate Sodium (Alendronate Sodium 70 Mg Tab) 70 mg PO Fr@0630 AZEEM Stop: 03/15/25 06:29 Last Admin: 02/13/25 06:30 Dose: 70 mg Anastrozole (Anastrozole 1 Mg Tab) 1 mg PO QAM AZEEM Stop: 03/14/25 11:44 Last Admin: 02/15/25 08:48 Dose: 1 mg Atorvastatin Calcium (Atorvastatin 40 Mg Tab) 80 mg PO QPM AZEEM Stop: 03/14/25 20:59 Last Admin: 02/15/25 20:21 Dose: 80 mg Budesonide (Budesonide 0.5 Mg/2 Ml Vial (Pulmicort)) 0.5 mg INH BID AZEEM Stop: 03/14/25 11:44 Last Admin: 02/15/25 19:36 Dose: 0.5 mg Bumetanide (Bumetanide 1 Mg Tab) 2 mg PO BID AZEEM Stop: 03/14/25 11:44 Last Admin: 02/12/25 12:10 Dose: 2 mg Carbidopa/Levodopa (Carbidopa/Levodopa 25/100mg Tab) 1 tab PO TID AZEEM Stop: 03/14/25 11:44 Last Admin: 02/15/25 20:22 Dose: 1 tab Clopidogrel Bisulfate (Clopidogrel Bisulfate 75 Mg Tab) 75 mg PO DAILY AZEEM Stop: 03/14/25 11:44 Last Admin: 02/15/25 08:48 Dose: 75 mg Empagliflozin (Empagliflozin 10 Mg Tab) 10 mg PO DAILY AZEEM Stop: 03/14/25 11:44 Last Admin: 02/12/25 12:11 Dose: 10 mg Famotidine (Famotidine 10 Mg Tablet) 10 mg PO QAM AZEEM Stop: 03/15/25 13:59 Last Admin: 02/15/25 08:48 Dose: 10 mg Guaifenesin (Guaifenesin Sugar Free 200 Mg/10 Ml Udc) 200 mg PO Q6H PRN PRN Reason: Cough Stop: 03/15/25 08:39 Last Admin: 02/13/25 09:05 Dose: 200 mg Ampicillin Sodium/Sulbactam Sodium (Unasyn) 1,500 mg in 100 mls @ 200 mls/hr IV Q24H [facility]; Protocol Stop: 02/19/25 13:59 Insulin Aspart (Insulin Aspart Per Unit Charge) 0 units SC ACHS AZEEM Stop: 03/14/25 16:29 Last Admin: 02/15/25 21:23 Dose: 4 units Insulin Glargine (Lantus Per Unit Charge) 0 units SQ HS AZEEM; Protocol Stop: 03/15/25 20:59 Last Admin: 02/15/25 21:24 Dose: 10 units Magnesium Hydroxide (Magnesium Hydroxide Susp 30 Ml Udc) 30 ml PO Q12H PRN PRN Reason: Constipation Stop: 03/14/25 11:25 Last Admin: 02/13/25 08:05 Dose: 30 ml Melatonin (Melatonin 3 Mg Tab) 3 mg PO HS PRN PRN Reason: Sleep Stop: 03/14/25 17:32 Last Admin: 02/14/25 20:28 Dose: 3 mg Miscellaneous Information (Pharmacy Glycemic Mgmt Consult) 1 each N/A UD PRN; Protocol PRN Reason: Consult Stop: 03/14/25 16:10 Morphine Sulfate (Morphine Sulfate 4 Mg/Ml 1 Ml Carp\Vial) 2 mg IV Q6 PRN PRN Reason: Pain Stop: 02/26/25 18:28 Last Admin: 02/14/25 20:28 Dose: 2 mg Nitroglycerin (Nitroglycerin Sl 0.4 Mg/Tab Tab) 0.4 mg SL Q5M PRN PRN Reason: Chest Pain Stop: 03/14/25 18:24 Ondansetron HCl (Ondansetron Inj 2 Mg/Ml 2 Ml Vial) 4 mg IV Q6H PRN PRN Reason: Nausea And Vomiting Stop: 03/14/25 11:04 Last Admin: 02/13/25 19:47 Dose: 4 mg Pantoprazole Sodium (Pantoprazole 40 Mg Tab) 40 mg PO DAILY AZEEM Stop: 02/17/25 20:59 Last Admin: 02/15/25 08:47 Dose: 40 mg Polyethylene Glycol (Polyethylene (Miralax) 17 Gm Pack) 17 gm PO DAILY [facility] Stop: 03/15/25 13:29 Last Admin: 02/15/25 08:46 Dose: 17 gm Sodium Zirconium Cyclosilicate (Sodium Zirconium Cyclosilicate 10 Gm Packet) 10 gm PO Q6H AZEEM Stop: 02/16/25 05:01 Last Admin: 02/15/25 17:05 Dose: 10 gm (1) CHF (congestive heart failure) Heart failure chronicity: unspecified Heart failure type: unspecified Qualified Code(s): I50.9 - Heart failure, unspecified
[2025-02-15 16:12] LABS: Anion Gap 12.0 (3-11); Blood Urea Nitrogen 103.0 mg/dl (6-23); Calcium 8.6 mg/dl (8.6-10.3); Carbon Dioxide 24.0 mmol/L (21-32); Chloride 89.0 mmol/L (98-107); Creatinine Clr Calc Pharmacy 11.0 ml/min; Glucose 145.0 mg/dl (70-99(Fasting)); Potassium 5.7 mmol/L (3.5-5.1); Sodium 125.0 mmol/L (136-145)
[2025-02-15] MEDS ORDERED: SODIUM CHLORIDE 0.9% 500 ML IV ONE (16:20)
[2025-02-15] MEDS: CALCIUM GLUCONATE 1,000 MG/60 ML BAG IV STA (16:48)
[2025-02-15] MEDS: SODIUM ZIRCONIUM CYCLOSILICATE 10 GM PACKET PO SCH (17:05)
[2025-02-15] MEDS: SODIUM CHLORIDE 0.9% 250 ML IV ONE (17:14)
[2025-02-15 20:03] LABS: Anion Gap 13.0 (3-11); Blood Urea Nitrogen 104.0 mg/dl (6-23); Calcium 8.4 mg/dl (8.6-10.3); Carbon Dioxide 22.0 mmol/L (21-32); Chloride 89.0 mmol/L (98-107); Creatinine Clr Calc Pharmacy 10.8 ml/min; Glucose 218.0 mg/dl (70-99(Fasting)); Potassium 5.5 mmol/L (3.5-5.1); Sodium 124.0 mmol/L (136-145)
[2025-02-15] MEDS ORDERED: SODIUM ZIRCONIUM CYCLOSILICATE 10 GM PACKET PO SCH (21:00)
[2025-02-16 00:06] LABS: Anion Gap 12.0 (3-11); Blood Urea Nitrogen 104.0 mg/dl (6-23); Calcium 8.3 mg/dl (8.6-10.3); Carbon Dioxide 23.0 mmol/L (21-32); Chloride 89.0 mmol/L (98-107); Creatinine Clr Calc Pharmacy 10.5 ml/min; Glucose 168.0 mg/dl (70-99(Fasting)); Potassium 5.0 mmol/L (3.5-5.1); Sodium 124.0 mmol/L (136-145)
[2025-02-16 06:42] LABS: Hematocrit (blood only) 23.4 % (37.0-47.0); Hemoglobin 7.8 g/dL (12.0-16.0); Mean Corpuscular Hemoglobin 29.5 pg (25.0-34.0); Mean Corpuscular Volume 88.6 fL (80.0-100.0); Platelet Count 161 K/uL (130-400); RDW Standard Deviation 48.7 fL (36.4-46.3); Red Blood Count 2.64 M/uL (4.20-5.40); White Blood Count 13.69 K/ul (4.8-10.8)
[2025-02-16 07:41] LABS: Anion Gap 14.0 (3-11); Blood Urea Nitrogen 107.0 mg/dl (6-23); Calcium 8.3 mg/dl (8.6-10.3); Carbon Dioxide 22.0 mmol/L (21-32); Chloride 89.0 mmol/L (98-107); Creatinine Clr Calc Pharmacy 10.1 ml/min; Glucose 174.0 mg/dl (70-99(Fasting)); Potassium 5.2 mmol/L (3.5-5.1); Sodium 125.0 mmol/L (136-145)
[2025-02-16] MEDS ORDERED: GLUCAGON FOR INJ 1 MG VIAL SQ PRN (07:45)
[2025-02-16] MEDS ORDERED: GLUCOSE 10 TAB/TUBE PO PRN (07:45)
[2025-02-16] MEDS ORDERED: GLUCOSE 40% GEL 15 GM TUBE PO PRN (07:45)
[2025-02-16] MEDS ORDERED: CARBOHYDRATES FOR HYPOGLYCEMIA PO PRN (07:45)
[2025-02-16] MEDS: LANTUS PER UNIT CHARGE SQ ONE (13:09)
--- NOTE | 2025-02-16 13:16 | Pharmacy Report ---
Pharmacy Glycemic Short Note 2 - Date of Service February 16, 2025 - Glycemic Short BSG Results (Last 24 hours): 02/15/25 02/15/25 02/15/25 15:36 15:58 19:26 Glucose 145 H 218 H POC Glucose 166 H 02/15/25 02/15/25 02/16/25 21:11 23:34 05:54 Glucose 168 H 174 H POC Glucose 252 H 02/16/25 02/16/25 07:22 12:07 Glucose POC Glucose 188 H 274 H OUTPATIENT ANTIDIABETIC REGIMEN: * NPH 26 units SC BIDM * Novolog 26 units SC BIDM * Metformin 500 mg PO BIDM * Empagliflozin 10 mg PO daily HbA1c: 8.3% (01/29/25) ASSESSMENT: 02/16 * Basal reduced to 10 units yesterday, after fasting 89 mg/dL with 25 units given the previous day/NPO status, SCR continues to increase * Fasting BSG 188 mg/dL this morning, will increase to 15 units given at lunch time * Patient has clear liquid diet ordered- 25% of breakfast documented as consumed. Will continue with current novolog parameters. 02/13 * Fasting this morning 177 mg/dL- slightly reduced lantus scale for PM dose today * SCr remains elevated 2.52 today- monitor * Tightened carb ratio slightly this morning, consider further adjustments with trend today 02/12 * FH is an 79 year old female w/ NSTEMI now s/p cardiac catheterization * Pertient PMH includes CAD, CHF, T2DM, and breast cancer * On heparin gtt (mixed in dextrose), diet ordered * Prior admission earlier this month, patient on very similar regimen to current at that time * Apparent JOBY based on current SCr of 2.59 mg/dL (SCr of 1.3 in December) PLAN FOR INPATIENT GLYCEMIC CONTROL: * Empagliflozin 10 mg PO daily given today, but will hold given JOBY * Basal insulin * Lantus 25 units SC BID-- adjust to scale 01/08/20 with PM dose * Bolus insulin * NovoLog per scale ACHS or Q6hrs while NPO * Goal Range: Low 110 mg/dL - High 150 mg/dL * Correction Factor: 30 mg/dL/unit * Nutritional / Prandial insulin per carb ratio of 1 unit per 10 grams CHO consumed
--- NOTE | 2025-02-16 16:34 | Hospitalist Progress Note ---
Date of Service February 16, 2025 Assessment & Plan (1) CHF (congestive heart failure): (2) Ischemic cardiomyopathy: (3) CKD stage 3b, GFR 30-44 ml/min: (4) Elevated troponin: Plan William Xie is an 79yo F with PMH including CKD3b, DM2 on Insulin, CAD s/p CABG, HFrEF, Pulmonary Hypertension, Cirrhosis, and Depression who presented to the hospital 02/12 with worsening of SOB for 3 days and chest pain that started the morning of coming to the ER. Initial workup notable for EKG showing new T wave inversion and ST segment depressions, and echo showing significant decrease in EF compared to prior studies. She is admitted for management of NSTEMI and Acute CHF Exacerbation. Requires continued admission for management and workup of her worsening renal function, likely as a consequence of aggressive diuresis for improved cardiac function. #Acute CHF exacerbation #NSTEMI - Worsening shortness of breath for 3 days prior to arrival. Echo on 02/12 showed: Normal LV size, borderline concentric LVH, mild global hypokinesis, and LVEF 25-30% (compared to Echo on 12/05/2024 w/ LVEF of 40-35%) - Left heart cath showed 100% occlusion of distal aspect of LCX stent and 100% occlusion of proximal LAD stent - Cardiology on board, appreciate recs - NSTEMI likely contributing to exacerbation of heart failure Continue DAPT: Clopidogrel + aspirin however holding aspirin for worsening kidney function - Metoprolol 200mg qAM at home. Holding given soft BP. - On Losartan 50mg po daily at home. Holding given BP. - Continue Atorvastatin 80mg qPM - Sublingual Nitroglycerin and Morphine as needed - holding off on diuresis as kidney function has significantly worsened, likely due to initial bumex 4mg 02/13/25 - Dry weight ~68kg. Most recently 72.7kg, will obtain weight 02/17/25 AM. #JOBY on CKD3b #Hyponatremia #Hyperkalemia In the setting of aggressive diuresis with bumex for HFrEF exacerbation - Na 125 (up from 124 day prior), K 5 -> 5.2, also likely consequence of recent diuresis however working up causes of hyponatremia Continue diet as ordered but wary of significant sodium intake and fluids as this could worsen pt's cardiac function by fluid overload Ordering lipids to ensure triglycerides not causing pseudohyponatremia- prior triglycerides elevated to upper 100s earlier in the year Ordered nephrology consultation for additional assistance in determining next steps in workup and treatment, appreciate recs. Family present today appearing worried about patient and wanting nephrology weigh-in mehul BMP, serum osmolality, urine electrolytes, urine osmolality, AM cortisol, and TSH for further evaluation and workup #Anemia, normocytic Hgb steadily downtrending 7.8 on 02/16AM; questioning bleed vs decreased EPO production due to progressing kidney injury vs hemodilution - no overt signs or symptoms of bleeding reported or seen and pt has not been receiving much IV fluids due to narrow euvolemic range, thus currently leaning toward decreased erythropoietin production Signed transfusion consent, will transfuse for Hgb <7.0 CBC in AM #RUQ tenderness / LUQ tenderness / UTI - AST/ALT: WNL on admission - Denies any pattern associated with meals - RUQ US on 02/13 showed cholelithiasis, borderline (8.4mm) dilation of CBD, trace intraperitoneal fluid in the perihepatic region. - CTAP on 02/14 showed: Mildly dilated small bowel loops with air-fluid levels, cannot r/o SBO; Small amount of air in the urinary bladder, may be post-cath or current inflammatory changes; Mild left back pressure changes, no obvious renal stones; mild progression of perinephric stranding; Progression of pleural effusion; Mild ascites, new finding; Minimal circumferential mural thickening of the rectum with slight smudging of the mesorectal and presacral fat planes, co uld be proctitis, new finding - UA obtained 02/14 was cloudy with 1+ gluc, 1+ blood, 3+ LE, >50 WBC, and 4+ bacteria. Ucx pending switch from Unasyn IV to Augmentin PO - Having small, hard BMs; continue Miralax daily - Continue GI prophylaxis with Protonix 40mg daily and Pepcid 10mg daily - Morphine 2mg available q6h prn for pain #Parkinson disease - Continue Levodopa/Carbidopa #DM2 - Current home regimen: metformin 500mg BID, jardiance 10mg, NPH 32 units prior to breakfast and dinner, regular insulin 26u qAM and 20u in PM - Holding metformin. Continue Jardiance. Lantus 25 unit qAM - SSI w/ goal 110-150, CF 30, CR 10, BSGs ACHS Hypertension - Holding metoprolol & losartan given continued low BP Hyperlipidemia - Continue Atorvastatin Breast cancer s/p mastectomies -Continue anastrozole Diet: clear liquids, fluids <1200mL VTE ppx: heparin 5,000units q12 Admission and Anticipated Discharge Date Admission Date: February 12, 2025 Supervising Physician Co-Signing Physician Notes Resident Physician Supervision Note: I personally examined the patient and verified all [place] points of history and exam, discussed case, and agree with decision making with Dr. Fitch I discussed the case with the resident and agree with the findings and plan as documented in the note. Any exceptions or clarifications are listed here: None Patient presented with chest pain and dynamic EKG changes. Taken for heart catheterization multivessel disease with recommendation for medical management. Patient had exacerbation of acute kidney injury to her chronic kidney disease stage III likely from diuresis and contrast dye use for heart catheterization. Patient continues to suffer from elevation of creatinine however has a prognostically worrying sign of hyponatremia and hyperkalemia. However clinically the patient has improved no further chest pain or shortness of breath Card exam sounds to be regular I hear no murmurs her lungs are diminished at the bases but otherwise clear her abdomen is NABS and soft extremities are without edema Continue to hold diuresis at this time trying to improve her hyponatremia hype rkalemia and renal failure in the face of heart failure reduced ejection fraction and recent NSTEMI Documented By: Jeffrey Garcia MD Subjective Reports feeling generally well today but too tired to get out of bed and walk on her own. No reported chest pain, SOB, dizziness, lightheadedness, or nausea/vomiting. No reported bleeding. Has been able to eat but only partial meals. Physical Exam Physical Exam: General: resting comfortably Resp: decreased breath sounds at bases b/l, otherwise generally clear to auscultation b/l CV: Regular rate and rhythm, soft systolic murmur otherwise no m/r/g heard GI/Abd: +BS, some discomfort with palpation, mild voluntary guarding, nontender Extremities: Well perfused, no peripheral edema Results & Data Results & Data Vital Signs (Past 12 Hours) Vital Signs Temp Pulse Pulse Resp BP Pulse Ox Pulse Ox 02/16/25 16:16 72 02/16/25 16:12 36.6 C 71 25 H 94/57 L 97 02/16/25 12:08 36.9 C 70 25 H 101/53 L 97 02/16/25 11:00 95 02/16/25 08:00 79 02/16/25 07:23 37.0 C 71 20 99/55 L 96 02/16/25 07:18 72 18 97 O2 Del Method O2 Del Method O2 Flow Rate 02/16/25 16:16 02/16/25 16:12 Room Air 02/16/25 12:08 Nasal Cannula 2 02/16/25 11:00 Room Air 02/16/25 08:00 02/16/25 07:23 Room Air 02/16/25 07:18 Room Air Resident Activity Tracking Resident Involvement: Resident Care Provided Care Provided: Adult Hospital Medicine (1) CHF (congestive heart failure) Heart failure chronicity: unspecified Heart failure type: unspecified Qualified Code(s): I50.9 - Heart failure, unspecified
--- NOTE | 2025-02-16 17:20 | Billing Data ---
Date of Service February 16, 2025 Coding Level of Care Code 41519 SUB INP/OBS CARE
--- NOTE | 2025-02-16 17:20 | Cardiology Progress Note ---
Date of Service February 16, 2025 Assessment & Plan (1) CHF (congestive heart failure): Plan: ICM/HFrEFEF 25 % 01/2025; (long-term Entresto dcd due cost; no MRA with hyperkalemia) 2. CAD --post three-vessel CABG; Patent MCCORMACK-LAD, occluded pLAD stent, diffuse LCx disease, distal LCx stent now acutely occluded mild to moderate RCA disease with R->L collaterals 01/2025 Intolerant to Imdur 3. Moderate+ MR 4. Acute on chronic renal insufficiency 5. Hyponatremia 6. Type 2 diabetes 7. Anemia Overall she seems to be doing better with the exception of her renal function which has not improved. Continuing dual antiplatelet therapy Continuing to hold most antihypertensives and heart failure medications due to her renal dysfunction and relative hypotension. Overall volume status appears adequate. Avoiding excessive diuresis at this point to monitor renal function. Will consider reevaluation of mitral regurgitation sometime this week. Admission and Anticipated Discharge Date Admission Date: February 12, 2025 Subjective This afternoon the patient clinically feeling better. Breathing at baseline. No dyspnea. No abdominal pain. No chest pain. Tolerating clear liquids. Review of Systems Review of Systems: Per HPI Physical Exam Physical Exam: General: Alert. Oriented. No discomfort. HEENT: Sclerae anicteric Lungs: Clear to auscultation bilaterally, decreased breath sounds at bases Cardiac: Regular rate and rhythm, 1-6 systolic ejection murmur. Extremities: Well perfused, no peripheral edema Neuro: Nonfocal Psych: Alert orient x3, normal affect and mood Results & Data Vital Signs (Past 12 Hours) Vital Signs Temp Pulse Pulse Resp BP Pulse Ox Pulse Ox 02/16/25 16:16 72 02/16/25 16:12 36.6 C 71 25 H 94/57 L 97 02/16/25 12:08 36.9 C 70 25 H 101/53 L 97 02/16/25 11:00 95 02/16/25 08:00 79 02/16/25 07:23 37.0 C 71 20 99/55 L 96 02/16/25 07:18 72 18 97 O2 Del Method O2 Del Method O2 Flow Rate 02/16/25 16:16 02/16/25 16:12 Room Air 02/16/25 12:08 Nasal Cannula 2 02/16/25 11:00 Room Air 02/16/25 08:00 02/16/25 07:23 Room Air 02/16/25 07:18 Room Air Laboratory Results Abnormal Lab Results 02/15/25 02/15/25 02/15/25 19:26 21:11 23:34 WBC RBC Hgb Hct MCV MCH MCHC RDW Std Deviation RDW Coeff of Sarina Plt Count MPV Sodium 124 L 124 L Potassium 5.5 H 5.0 Chloride 89 L 89 L Carbon Dioxide 22 23 Anion Gap 13 H 12 H BUN 104 H 104 H Creatinine 3.82 H 3.92 H Est Cr Clr Drug Dosing 10.8 10.5 eGFR 11.33 10.99 BUN/Creatinine Ratio 27.2 H 26.5 H Glucose 218 H 168 H POC Glucose 252 H Calcium 8.4 L 8.3 L 02/16/25 02/16/25 02/16/25 05:54 07:22 12:07 WBC 13.69 H RBC 2.64 L Hgb 7.8 L Hct 23.4 L MCV 88.6 MCH 29.5 MCHC 33.3 RDW Std Deviation 48.7 H RDW Coeff of Sarina 15.3 H Plt Count 161 MPV 12.0 Sodium 125 L Potassium 5.2 H Chloride 89 L Carbon Dioxide 22 Anion Gap 14 H BUN 107 H Creatinine 4.08 H Est Cr Clr Drug Dosing 10.1 eGFR 10.47 BUN/Creatinine Ratio 26.2 H Glucose 174 H POC Glucose 188 H 274 H Calcium 8.3 L 02/16/25 16:16 WBC RBC Hgb Hct MCV MCH MCHC RDW Std Deviation RDW Coeff of Sarina Plt Count MPV Sodium Potassium Chloride Carbon Dioxide Anion Gap BUN Creatinine Est Cr Clr Drug Dosing eGFR BUN/Creatinine Ratio Glucose POC Glucose 205 H Calcium PG Care Time/CCT Total # of Minutes Spent Total Time Spent with Patient: Total time spent is greater than 50% in coordination of care (as documented) at patient's floor/unit and/or counseling patient: Coding Level of Care Code 73994 SUB INP/OBS CARE 2/35MIN Diagnoses CHF (congestive heart failure) I50.9
[2025-02-16 19:15] LABS: Hematocrit (blood only) 23.6 % (37.0-47.0); Hemoglobin 8.0 g/dL (12.0-16.0)
[2025-02-16 19:40] LABS: Anion Gap 17.0 (3-11); Blood Urea Nitrogen 105.0 mg/dl (6-23); Calcium 8.1 mg/dl (8.6-10.3); Carbon Dioxide 21.0 mmol/L (21-32); Chloride 86.0 mmol/L (98-107); Creatinine Clr Calc Pharmacy 9.2 ml/min; Glucose 169.0 mg/dl (70-99(Fasting)); Potassium 5.1 mmol/L (3.5-5.1); Sodium 124.0 mmol/L (136-145)
[2025-02-16] MEDS: HEPARIN SOD 5,000 UNIT/0.5 ML VIAL SQ SCH (21:27)
[2025-02-16] MEDS: AMOXICILLIN/CLAVULANATE 250 MG TAB PO SCH (21:31)
--- NOTE | 2025-02-17 06:50 | Hospitalist Progress Note ---
Date of Service February 17, 2025 Assessment & Plan (1) CHF (congestive heart failure): (2) Ischemic cardiomyopathy: (3) CKD stage 3b, GFR 30-44 ml/min: (4) Elevated troponin: Plan William Xie is an 79yo F with PMH including CKD3b, DM2 on Insulin, CAD s/p CABG, HFrEF, Pulmonary Hypertension, Cirrhosis, and Depression who presented to the hospital 02/12 with worsening of SOB for 3 days and chest pain that started the morning of coming to the ER. Initial workup notable for EKG showing new T wave inversion and ST segment depressions, and echo showing significant decrease in EF compared to prior studies. She is admitted for management of NSTEMI and Acute CHF Exacerbation. Requires continued admission for management and workup of her worsening renal function, likely as a consequence of contrast dye and aggressive diuresis for improved cardiac function. #Acute CHF exacerbation #NSTEMI - Worsening shortness of breath for 3 days prior to arrival. Echo on 02/12 showed: Normal LV size, borderline concentric LVH, mild global hypokinesis, and LVEF 25-30% (compared to Echo on 12/05/2024 w/ LVEF of 40-35%) - Left heart cath showed 100% occlusion of distal aspect of LCX stent and 100% occlusion of proximal LAD stent - Cardiology on board, appreciate recs - NSTEMI likely contributing to exacerbation of heart failure Continue DAPT: Clopidogrel + aspirin however holding aspirin for worsening kidney function - Metoprolol 200mg qAM at home. Holding given soft BP. - On Losartan 50mg po daily at home. Holding given BP. - Continue Atorvastatin 80mg qPM - Sublingual Nitroglycerin and Morphine as needed - holding off on diuresis - Dry weight ~68kg. Most recently 72.7kg, will obtain weight 02/18/25 AM. #JOBY on CKD3b #Hyponatremia #Hyperkalemia s/p contrast dye from cardiac caths and aggressive diuresis with bumex for new HFrEF exacerbation nephro on board, appreciate recs and interventions - Na stable at 123 in AM and after giving small bolus of hypertonic saline, will proceed with additional hypertonic saline if sodium remains low - serum osmolality high end of normal, urine osmolality low- this points of likelihood of the contrast dye from heart caths inducing JOBY on pt's CKD, likely exacerbated further by bumex on 02/13 Diet advanced to nephro easy to chew, being wary of significant sodium intake and fluids as this could worsen pt's cardiac function by fluid overload BMP AM #Anemia, normocytic Hgb stable at 8.1 - hx of iron deficiency, given IV venofer today - no overt signs or symptoms of bleeding reported or seen and pt has not been receiving much IV fluids due to narrow euvolemic range Signed transfusion consent, will transfuse for Hgb <7.0 CBC and iron profile in AM #RUQ tenderness / LUQ tenderness / UTI - AST/ALT: WNL on admission - Denies any pattern associated with meals - RUQ US on 02/13 showed cholelithiasis, borderline (8.4mm) dilation of CBD, trace intraperitoneal fluid in the perihepatic region. - CTAP on 02/14 showed: Mildly dilated small bowel loops with air-fluid levels, cannot r/o SBO; Small amount of air in the urinary bladder, may be post-cath or current inflammatory changes; Mild left back pressure changes, no obvious renal stones; mild progression of perinephric stranding; Progression of pleural effusion; Mild ascites, new finding; Minimal circumferential mural thickening of the rectum with slight smudging of the mesorectal and presacral fat planes, could be proctitis, new finding - UA obtained 02/14 was cloudy with 1+ gluc, 1+ blood, 3+ LE, >50 WBC, and 4+ bacteria. Ucx pending switch from Unasyn IV to Augmentin PO - Having small, hard BMs; continue Miralax daily - Continue GI prophylaxis with Protonix 40mg daily and Pepcid 10mg daily - Morphine 2mg available q6h prn for pain #Parkinson disease - Continue Levodopa/Carbidopa #DM2 - Current home regimen: metformin 500mg BID, jardiance 10mg, NPH 32 units prior to breakfast and dinner, regular insulin 26u qAM and 20u in PM - Holding metformin. Continue Jardiance. Lantus 25 unit qAM - SSI w/ goal 110-150, CF 30, CR 10, BSGs ACHS Hypertension - Holding metoprolol & losartan given continued low BP Hyperlipidemia - Continue Atorvastatin Breast cancer s/p mastectomies -Continue anastrozole Diet: clear liquids, fluids <1200mL VTE ppx: heparin 5,000units q12 Admission and Anticipated Discharge Date Admission Date: February 12, 2025 Supervising Physician Co-Signing Physician Notes Resident Physician Supervision Note: I personally examined the patient and verified all [place] points of history and exam, discussed case, and agree with decision making with Dr. Fitch I discussed the case with the resident and agree with the findings and plan as documented in the note. Any exceptions or clarifications are listed here: None Patient presented with chest pain and dynamic EKG changes. Taken for heart catheterization multivessel disease with recommendation for medical management. Patient had exacerbation of acute kidney injury to her chronic kidney disease stage III likely from diuresis and contrast dye use for heart catheterization. Patient continues with hyponatremia and hyperkalemia. She feels fatigued but not with acute issues , clinically the patient has improved no further chest pain or shortness of breath Card exam sounds to be regular I hear no murmurs her lungs remain diminished at the bases but otherwise clear her abdomen is NABS and soft extremities are without edema Continue to hold diuresis at this time trying to improve her hyponatremia hyperkalemia and renal failure in the face of heart failure reduced ejection fraction and recent NSTEMI given concerns for acute on chronic renal failure progressing, will have nephrology assist in management Documented By: Jeffrey Garcia MD Subjective Endorses feeling the same as day prior, no concerns overnight. No SOB or chest pain reported. Tolerating diet well. Physical Exam Physical Exam: General: resting comfortably Resp: decreased breath sounds at bases b/l, otherwise generally clear to auscultation b/l CV: Regular rate and rhythm, soft systolic murmur otherwise no m/r/g heard GI/Abd: +BS, some discomfort with palpation, mild voluntary guarding, nontender Extremities: Well perfused, no peripheral edema Results & Data Results & Data Vital Signs (Past 12 Hours) Vital Signs Temp Pulse Resp BP Pulse Ox O2 Del Method 02/17/25 06:42 105/62 02/17/25 03:40 36.4 C L 70 20 82/57 L 97 Room Air 02/16/25 23:25 36.6 C 72 22 96/57 L 94 Room Air 02/16/25 20:01 71 24 98 Room Air 02/16/25 19:29 36.5 C 69 20 95/54 L 94 Room Air Resident Activity Tracking Resident Involvement: Resident Care Provided Care Provided: Adult Hospital Medicine (1) CHF (congestive heart failure) Heart failure chronicity: unspecified Heart failure type: unspecified Qualified Code(s): I50.9 - Heart failure, unspecified
[2025-02-17 07:39] LABS: Hematocrit (blood only) 24.1 % (37.0-47.0); Hemoglobin 8.1 g/dL (12.0-16.0); Mean Corpuscular Hemoglobin 29.0 pg (25.0-34.0); Mean Corpuscular Volume 86.4 fL (80.0-100.0); Platelet Count 132 K/uL (130-400); RDW Standard Deviation 48.1 fL (36.4-46.3); Red Blood Count 2.79 M/uL (4.20-5.40); White Blood Count 8.78 K/ul (4.8-10.8)
[2025-02-17 08:08] LABS: Anion Gap 15.0 (3-11); Blood Urea Nitrogen 119.0 mg/dl (6-23); Calcium 8.1 mg/dl (8.6-10.3); Carbon Dioxide 22.0 mmol/L (21-32); Chloride 86.0 mmol/L (98-107); Cholesterol 75.0 mg/dl (0-200); Creatinine Clr Calc Pharmacy 8.8 ml/min; Glucose 111.0 mg/dl (70-99(Fasting)); HDL Cholesterol 30.0 mg/dl; Potassium 5.1 mmol/L (3.5-5.1); Sodium 123.0 mmol/L (136-145); Triglycerides 82.0 mg/dl (0-150)
[2025-02-17 08:12] LABS: Thyroid Stimulating Hormone 2.608 uIu/ml (0.300-4.500)
[2025-02-17] MEDS: LANTUS PER UNIT CHARGE SQ SCH ×2 (08:39→21:28)
--- NOTE | 2025-02-17 09:13 | Nephrology Consultation ---
Date of Consultation February 17, 2025 Assessment & Plan (1) Acute kidney injury: Non-oliguric. Volume status -- intravascular volume depletion with decreased EAV. Notably underlying CRS. Clinical presentation is not consistent with HRS. I suspect a component of ATN following cardiac catheterization and hemodynamic instability with persistent hypotension. Thankfully, there is no emergent indication for dialysis. Losartan has been appropriately held. Empagliflozin held. Medications are appropriately dosed for kidney function. Document strict I/O's. Repeat serum metabolic profile tomorrow AM. Urine notable for evidence of cystitis which is currently being treated with Augmentin. UA + microscopy will be repeated if kidney function does not continue to improve. William has had chronic intermittent microscopic hematuria and may ultimately require urologic evaluation which may be considered on a outpatient basis. (2) CKD stage 3b, GFR 30-44 ml/min: CKD IIIb A2. Baseline creatinine ~1.8-2.0 mg/dL. MACR 50-250 mcg/mg. CKD attributed to underlying atherosclerosis and CRS. Cortical thickness is preserved on imaging. (3) CHF (congestive heart failure): Diuretics held. Metoprolol and RAASi held due to hypotension and JOBY. Cardiology following. (4) Ischemic cardiomyopathy: (5) Chronic hyponatremia: Serum osmolality suggests possible component of hypertonic hyponatremia from cardiac catheterization. William has had some chronic mild hyponatremia from cardiorenal syndrome. I cannot exclude a component of underlying SIADH. She has pulmonary hypertension but evidence of decreased EAV. Oral solute intake is poor. Laboratory studies and clinica presentation do not support hypothyroidism or adrenal insufficiency. I will provide a small bolus of 3% saline x 100 ml now with close monitoring. Repeat BMp has been ordered for this afternoon. I will recheck a renal panel + magnesium tomorrow AM. Maintain 1.2 L daily free water restriction. (6) Acute hyperkalemia: Chronic hyperkalemia noted. RAASi avoided. Continue to monitor. (7) Anemia: Significant history of iron deficiency (Tsat 9% earlier this month). 300 mg of Venofer has been ordered for now. Iron profile will be rechecked with next labs. History of Present Illness Reason for Consultation: JOBY on CKD, HFrEF w/ L Na, HKal, apprec. recs Requesting Physician: Jeffrey Garcia MD Attending Physician: Jeffrey Garcia MD History of Present Illness William Xie is an 79 year-old female with chronic kidney disease, atherosclerotic cardiovascular disease (h/o CABG x 3v), diabetes mellitus II, pulmonary hypertension, cirrhosis, iron deficiency anemia, history of breast cancer, osteoporosis, and Parkinson disease who presented to [facility] on February 12 with worsening shortness of breath. She has ~3 prior admissions in the past ~30 days with acute on chronic CHF. Baseline creatinine is ~1.8-2.0 mg/dL. MACR 50- 275 mcg/mg. Urine studies with WBCs and microscopic hematuria intermittently. William has never been previously evaluated by a gas controller. Kidneys are normal in appearance on imaging. Serum creatinine was ~2.6 mg/dL on presentation to the ER. Initial evaluation demonstrated evidence of NSTEMI for which left heart catheterization was performed demonstrating 100% occlusion of the distal LCx and 100% proximal LAD. SVG x 2 occluded. Post procedure, William was hypotensive for which metoprolol and losartan have been held. She received IV Bumex x ~2 days but diuretics were subsequently held due to evidence of intravascular volume depletion and worsening kidney function. Laboratory studies demonstrating moderate to severe chronic hyponatremia superimposed on chronic mild hyponatremia. Urine osmolality >350 with serum osmolality ~300. Angelique 23 UK 61. William has been struggling with abdominal discomfort. There is also evidence of partial small bowel obstruction for which a full liquid diet has been provided. Appetite is poor. She is breathing comfortably at this time. William denies dyspnea. She denies chest pain. Her abdomen is distended. Ct demonstrating mild ascites. She does not otherwise have evidence of fluid retention or edema. Augmentin is being provided for possible UTI. CT did demonstrate some air in the bladder and kidneys. She is afebrile and without leukocytosis. There has not been evidence of active bleeding. William was seen and evaluated in her hospital room this morning with her at the bedside. I discussed the patient with Dr. Garcia this AM. Allergies Allergy/AdvReac Type Severity Reaction Status Date / Time lisinopril Allergy Intermediate Cough Verified 02/11/25 13:59 isosorbide AdvReac Intermediate Headache Verified 02/11/25 13:59 Home Medications Medication Instructions Recorded Confirmed Type anastrozole 1 mg tablet 1 mg PO QAM 11/08/18 02/12/25 History coenzyme Q10 200 mg capsule 200 mg PO QAM 01/06/20 02/12/25 History vit C 250 mg-vit E 90 mg-zinc 40 1 tab PO BID 09/26/21 02/12/25 History mg-copper 1 [id number] capsule (PreserVision AREDS-2) Spacer for Inhaler #1 ea 09/27/21 02/11/25 Rx prevagen 1 tab PO DAILY 05/29/22 02/12/25 History pen needle, diabetic 32 gauge x #400 ea 05/23/23 02/11/25 Rx 5/32" (BD Ultra-Fine Suzette Pen Needle) nebulizer and compressor #1 ea 07/10/23 02/11/25 Rx budesonide 0.5 mg/2 mL suspension 0.5 mg (2 mL) inhalation BID #60 mL 07/30/23 02/12/25 Rx for nebulization cyanocobalamin (vitamin B-12) 1,000 mcg PO 3XWK 12/19/23 02/12/25 History 2,500 mcg tablet nitroglycerin 0.4 mg sublingual 0.4 mg sublingual Q5M PRN chest 01/08/24 02/12/25 Rx tablet (Nitrostat) pain #25 tabs albuterol sulfate 90 mcg/actuation 2 puff inhalation Q6H PRN Wheezing 01/17/24 02/12/25 Rx aerosol inhaler #18 grams clopidogrel 75 mg tablet 75 mg PO DAILY #90 tabs 05/28/24 02/12/25 Rx choline [id number] 1 tab PO QAM 05/31/24 02/12/25 History empagliflozin 10 mg tablet 10 mg PO DAILY #30 tabs 06/20/24 02/12/25 Rx (Jardiance) primidone 50 mg tablet (Mysoline) See Rx Instructions .Route .COMPLEX 06/20/24 02/12/25 History carbidopa 25 mg-levodopa 100 mg 1 tab PO TID #90 tabs 10/30/24 02/12/25 Rx tablet metformin 500 mg tablet 500 mg PO BIDWMEAL 90 days #180 12/16/24 02/12/25 Rx tabs losartan 50 mg tablet 50 mg PO DAILY #90 tabs 01/02/25 02/12/25 Rx atorvastatin 80 mg tablet 80 mg PO QPM #90 tabs 01/05/25 02/12/25 Rx blood sugar diagnostic (Accu-Chek #300 ea 01/13/25 02/11/25 Rx Guide test strips) blood-glucose meter (Accu-Chek #1 ea 01/13/25 02/11/25 Rx Guide Glucose Meter) lancets (Accu-Chek Softclix #300 ea 01/13/25 02/11/25 Rx Lancets) metoprolol succinate 200 mg 200 mg PO QAM #90 tabs 01/16/25 02/12/25 Rx tablet,extended release 24 hr alendronate 70 mg tablet 70 mg PO WK 01/22/25 02/12/25 History blood-glucose sensor (Dexcom G7 #9 ea 01/28/25 02/11/25 Rx Sensor device) insulin regular human 100 unit/mL 26 unit subcut BID 01/29/25 02/12/25 History (3 mL) subcutaneous pen (Novolin R FlexPen) ipratropium 0.5 mg-albuterol 3 mg 3 ml inhalation Q4H PRN wheezing 02/05/25 02/12/25 Rx (2.5 mg base)/3 mL nebulization #180 mL soln glucagon 3 mg/actuation nasal spray 3 mg intranasal .q 20 minutes PRN 02/09/25 02/12/25 Rx hypoglycemia #2 ea bumetanide 2 mg tablet 2 mg PO BID #90 tabs 02/10/25 02/12/25 Rx metolazone 2.5 mg tablet 2.5 mg PO Q OTHER DAY PRN weight 02/10/25 02/12/25 Rx gain, edema, SOB #30 tabs insulin NPH isoph U-100 human 100 26 unit subcut BID 02/11/25 02/12/25 History unit/mL (3 mL) subcutaneous pen (Novolin N FlexPen) Patient History Medical History Parkinsonism Essential tremor Chronic hyponatremia CHF (congestive heart failure) Type 2 diabetes mellitus with retinopathy of both eyes, with long-term current use of insulin Breast cancer (07/2017) left breast infiltrating ductal CA dx 07/2017 ([facility]+/[place]+, Her 2 -) and right breast invasive ductal CA dx 11/2017 (ER+/[place]+, Her 2 +), s/p elective B/L mastectomy with right axillary dissection (0/7 nodes +), on Arimedex since Jan 2018 CAD (coronary artery disease) Hypertension Hyperlipidemia Solitary pulmonary nodule stable, seen by pulm, no further follow up recommended Internal hemorrhoid Seborrheic keratoses NSTEMI (non-ST elevated myocardial infarction) Myocardial Infarction 2010 History of COVID-19 01/2021>MILD SYMPTOMS *RESOLVED Surgical History H/O bilateral mastectomy SURGERY ONLY>(NO LIMB RESTRICTION) NO RECONSTRUCTION H/O lumpectomy LEFT X 2 History of tooth extraction History of surgery Right Axillary Dissection, Bilateral Breast Scar Revision - 12/2017 [facility] History of colonoscopy History of trigger finger right thumb release History of open reduction and internal fixation (ORIF) procedure RT ANKLE History of cataract surgery RT/LEFT History of cardiac cath STENTS 06/2010 IN [place] (DIAG AND CX), 1 STENT 04/2011, AND 1 STENT 2013 [place] History of coronary artery bypass graft 3 VESSELS-2009 AT [facility] *FOLLOWS WITH DR. HAMMER Family History Sister Breast cancer Father Alcoholism Mother Heart disease Uncle Heart disease Daughter Family history of diabetes mellitus Other No family history of adverse response to anesthesia Denies family history of Ovarian cancer Prostate cancer Myocardial infarction Colorectal cancer Social History Smoking Status: Former smoker Tobacco Type: Cigarettes Age Started Using Tobacco: 13; Age Quit Using Tobacco: 43; packs per day: 0.75; Second Hand Exposure: No; Do You Dip or Chew Tobacco: No; Hx Alcohol Use: No Hx Substance Use: No Preferred Language: Amharic Communication Ability: Effective Visual Impairment: No Limitations Hearing Ability: Normal Rotary Cutter Feeder Required: No Beliefs That Will Affect Care: None marital status: Current Living Situation: Spouse Current Living Situation Comment: lives at home with current occupational status: retired current occupation: Retired Other Information That Helps Us Care for You: No Feels Safe at Home: Yes Safety Concerns: Feels Safe At This Time Childhood Exposure to Second-Hand Smoke: Yes Diet: regular caffeine: Yes Dental Care, Regularly: No Physical Activity Frequency: Does not Exercise Seatbelt Use: always Sunscreen Use: Yes Assistive Devices: Cane Review of Systems 2 Review of Systems: All systems reviewed & are unremarkable except as noted in HPI & below Cardiovascular: + lightheadedness; no syncope Physical Exam 2 Constitutional: + frail appearing; no acute distress Eyes: + anicteric sclerae; no conjunctival abn ormality ENMT: external ear and nose normal, oropharynx normal Neck: normal visual inspection and trachea midline Respiratory: normal respiratory effort Auscultation: lungs clear to auscultation bilaterally and + diminished lung sounds Cardiovascular: Rate/Rhythm: regular rate and regular rhythm Heart Sounds: normal S1 and normal S2 Gastrointestinal (Abdomen): Inspection/Auscultation: + abdomen distended P ercussion/Palpation: + dullness to percussion; no guarding and abdomen not rigid Musculoskeletal: Extremities: no cyanosis and no clubbing Skin: normal turgor; no jaundice Neurologic: Motor/Sensory: + tremor; no asterixis Psychiatric: Orientation: alert and oriented x 3 Results & Data Vital Signs (Past 12 Hours) Vital Signs Temp Pulse Resp BP Pulse Ox O2 Del Method 02/17/25 08:15 37.1 C 71 16 94/52 L 96 Room Air 02/17/25 07:11 70 18 97 Room Air 02/17/25 06:42 105/62 02/17/25 03:40 36.4 C L 70 20 82/57 L 97 Room Air 02/16/25 23:25 36.6 C 72 22 96/57 L 94 Room Air Laboratory Results Diagnostic Findings CXR: Comparison: 02/12/2025 Technique: PA and lateral views of the chest were obtained Findings: The lungs are well-expanded. There is redemonstration of a small to moderate-sized left-sided pleural effusion. There is redemonstration of multiple median sternotomy wires. There is stable mild to moderate cardiomegaly. There is no pneumothorax and no acute bony abnormalities are seen. Impression: 1. Mild to moderate size left-sided pleural effusion. 2. Mild to moderate cardiomegaly without definite signs of failure. CT abd pelvis wo con COMPARISON: Comparison is made with 05/25/2024. FINDINGS: Abdomen: Liver: Normal in size, shape, and density. Unchanged small left lobe cyst. Gallbladder and Biliary System: The gallbladder is prominent and unchanged. No wall thickening, pericholecystic fluid, or gallstones were identified. Pancreas: Pancreatic head, body, and tail are visualized and appear normal in size and density. No pancreatic masses or calcifications were noted. Spleen: Normal in size, shape, and density. No splenic lesions or masses were identified. Kidneys and Adrenal Glands: Both kidneys are normal in size, shape, and position. Cortical thickness is within normal limits. Mild left pelvicalyceal system nd ureter down to the urinary bladder. No obvious renal stones could be noted. No renal calculi. A few small air bubbles within calicex on the left. Mild progression of perinephric stranding. Adrenal glands are unremarkable. Appendix: The appendix could not be traced. Pelvis: Urinary Bladder: Normal in contour and wall thickness. No intraluminal lesions. A small amount of air is in the urinary bladder. Uterus: age-related atrophy. No masses or abnormal thickening. Ovaries: Not well visualized but no gross abnormalities noted. Vagina: Normal in contour and wall thickness. Cervix: No evidence of mass or abnormal thickening. Peritoneal and Retroperitoneal Structures: Mild ascites noted. No new lymphadenopathy was noted. Bowel: A small hiatus hernia. Mildly dilated small bowel loops with air-fluid levels. Minimal circumferential mural thickening of the rectum with slight smudging of the mesorectal and presacral fat planes could be a sequel of proctitis Bones and Soft Tissues: Pelvic bones and soft tissues are unremarkable. No fractures or abnormal masses were identified. Unchanged lumbar spine spondylotic changes. Diffuse osteopenia Grade I L4-5 antrolithesis. IMPRESSION: 1. Mildly dilated small bowel loops with air-fluid levels. It could be functional, but small bowel obstruction cannot be ruled out. new 2. A small amount of air is in the urinary bladder. After caterisation or current inflammatory changes. Correlate with hx. 3. Mild left backpressure changes. No obvious renal stones could be noted. New 4. A few small air bubbles within calicex on the left ( new). Mild progression of perinephric stranding. After caterisation or inflammatory disease. Correlate clinically and with hx. 5. Progression of pleural effusion. 6. Mild ascites noted. new 7. Minimal circumferential mural thickening of the rectum with slight smudging of the mesorectal and presacral fat planes could be a sequel of proctitis. new 8. The gallbladder is prominent and unchanged. PG Care Time/CCT Total # of Minutes Spent Total Time Spent with Patient: Total time spent is greater than 50% in coordination of care (as documented) at patient's floor/unit and/or counseling patient: Coding Level of Care Code 37013 IN/OBS CONSULT LVL 5,80M Diagnoses Acute kidney injury N17.9 CKD stage 3b, GFR 30-44 ml/min N18.32 CHF (congestive heart failure) I50.9 Heart failure chronicity: unspecified Heart failure type: unspecified Ischemic cardiomyopathy I25.5 Chronic hyponatremia E87.1 Acute hyperkalemia E87.5 Anemia D64.9 (3) CHF (congestive heart failure) Heart failure chronicity: unspecified Heart failure type: unspecified Qualified Code(s): I50.9 - Heart failure, unspecified
--- NOTE | 2025-02-17 09:27 | Pharmacy Report ---
Pharmacy Glycemic Short Note 2 - Date of Service February 17, 2025 - Glycemic Short BSG Results (Last 24 hours): 02/16/25 02/16/25 02/16/25 12:07 16:16 18:31 Glucose 169 H POC Glucose 274 H 205 H 02/16/25 02/17/25 02/17/25 20:58 07:05 07:24 Glucose 111 H POC Glucose 177 H 124 H OUTPATIENT ANTIDIABETIC REGIMEN: * NPH 26 units SC BIDM * Novolog 26 units SC BIDM * Metformin 500 mg PO BIDM * Empagliflozin 10 mg PO daily HbA1c: 8.3% (01/29/25) ASSESSMENT: 02/17: * BSGs [phone] mg/dL yesterday and fasting today was 124 mg/dL after 15 units of lantus given at lunchtime yesterday. Patient also received 10 units of NovoLog yesterday. * Given limited PO intake and continued worsening renal function, will order a conservative 10 units of lantus this morning and add a supplemental scale for this evening if needed. 02/16 * Basal reduced to 10 units yesterday, after fasting 89 mg/dL with 25 units given the previous day/NPO status, SCR continues to increase * Fasting BSG 188 mg/dL this morning, will increase to 15 units given at lunch time * Patient has clear liquid diet ordered- 25% of breakfast documented as consumed. Will continue with current novolog parameters. 02/13 * Fasting this morning 177 mg/dL- slightly reduced lantus scale for PM dose today * SCr remains elevated 2.52 today- monitor * Tightened carb ratio slightly this morning, consider further adjustments with trend today 02/12 * FH is an 79 year old female w/ NSTEMI now s/p cardiac catheterization * Pertient PMH includes CAD, CHF, T2DM, and breast cancer * On heparin gtt (mixed in dextrose), diet ordered * Prior admission earlier this month, patient on very similar regimen to current at that time * Apparent JOBY based on current SCr of 2.59 mg/dL (SCr of 1.3 in December) PLAN FOR INPATIENT GLYCEMIC CONTROL: * Empagliflozin 10 mg PO daily given today, but will hold given JOBY * Basal insulin * Lantus 10 units SC qam * Scale for PM dose * Bolus insulin * NovoLog per scale ACHS or Q6hrs while NPO * Goal Range: Low 110 mg/dL - High 150 mg/dL * Correction Factor: 30 mg/dL/unit * Nutritional / Prandial insulin per carb ratio of 1 unit per 10 grams CHO consumed
[2025-02-17] MEDS ORDERED: STAT IV/IM STA ×2 (09:58→16:05)
[2025-02-17] MEDS: SODIUM CHLORIDE 3 % 100 ML IV ONE (11:02)
[2025-02-17] MEDS: IRON SUCROSE 300 MG in SODIUM CHLORIDE 0.9% 250 ML IV ONE (11:23)
[2025-02-17] MEDS: LANTUS PER UNIT CHARGE SQ STA (11:32)
[2025-02-17 15:43] LABS: Anion Gap 15.0 (3-11); Blood Urea Nitrogen 119.0 mg/dl (6-23); Calcium 8.0 mg/dl (8.6-10.3); Carbon Dioxide 21.0 mmol/L (21-32); Chloride 87.0 mmol/L (98-107); Creatinine Clr Calc Pharmacy 8.6 ml/min; Glucose 124.0 mg/dl (70-99(Fasting)); Potassium 5.1 mmol/L (3.5-5.1); Sodium 123.0 mmol/L (136-145)
[2025-02-17] MEDS: SODIUM CHLORIDE 3 % 150 ML IV ONE (16:13)
--- NOTE | 2025-02-17 17:49 | Billing Data ---
Date of Service February 17, 2025 Coding Level of Care Code 34537 SUB INP/OBS CARE MIN
--- NOTE | 2025-02-17 18:07 | Cardiology Progress Note ---
Date of Service February 17, 2025 Assessment & Plan (1) CHF (congestive heart failure): Plan: ICM/HFrEFEF 25 % 01/2025; (long-term Entresto dcd due cost; no MRA with hyperkalemia) 2. CAD --post three-vessel CABG; Patent MCCORMACK-LAD, occluded pLAD stent, diffuse LCx disease, distal LCx stent now acutely occluded mild to moderate RCA disease with R->L collaterals 01/2025 Intolerant to Imdur 3. Moderate+ MR 4. Acute on chronic renal insufficiency 5. Hyponatremia 6. Type 2 diabetes 7. Anemia Unfortunately, her renal function has not yet improved. No indication for dialysis. Administered iron today in the hopes of improving anemia. Continuing to avoid diuresis. No evidence of volume overload or significant peripheral/pulmonary edema. No recurrent chest discomfort Will continue dual antiplatelet therapy and look for an opportunity to intensify her medical therapy once her blood pressure and renal function improved. Admission and Anticipated Discharge Date Admission Date: February 12, 2025 Subjective This afternoon the patient was feeling poorly. She has some difficulty characterizing the statement. Seems to simply fatigued and frustrated. She does not report any specific abdominal pain or pain elsewhere. She has not had breathing trouble. Minimal ambulation. She tolerated a regular diet today. Review of Systems Review of Systems: Per HPI Physical Exam Physical Exam: General: Alert. Oriented. No discomfort. HEENT: Sclerae anicteric Lungs: Clear to auscultation bilaterally, decreased breath sounds at bases Cardiac: Regular rate and rhythm, 1-6 systolic ejection murmur. Extremities: Well perfused, no peripheral edema Neuro: Nonfocal Psych: Alert orient x3, normal affect and mood Results & Data Vital Signs (Past 12 Hours) Vital Signs Temp Pulse Resp BP Pulse Ox Pulse Ox O2 Del Method 02/17/25 17:56 36.5 C 70 26 H 93/59 L 98 Room Air 02/17/25 11:00 97 02/17/25 10:47 36.4 C L 66 23 96/65 L 97 Room Air 02/17/25 08:15 37.1 C 71 16 94/52 L 96 Room Air 02/17/25 07:11 70 18 97 Room Air 02/17/25 06:42 105/62 O2 Del Method 02/17/25 17:56 02/17/25 11:00 Room Air 02/17/25 10:47 02/17/25 08:15 02/17/25 07:11 02/17/25 06:42 Laboratory Results Abnormal Lab Results 02/16/25 02/16/25 02/17/25 18:31 20:58 03:30 WBC RBC Hgb 8.0 L Hct 23.6 L MCV MCH MCHC RDW Std Deviation RDW Coeff of Sarina Plt Count MPV Sodium 124 L Potassium 5.1 Chloride 86 L Carbon Dioxide 21 Anion Gap 17 H BUN 105 H Creatinine 4.49 H D Est Cr Clr Drug Dosing 9.2 eGFR 9.33 BUN/Creatinine Ratio 23.4 H Glucose 169 H POC Glucose 177 H Osmolality 300 Calcium 8.1 L Triglycerides Cholesterol LDL Cholesterol, Calc VLDL Cholesterol, Calc HDL Cholesterol Cholesterol/HDL Ratio TSH Cortisol AM Sample Urine Osmolality 337 L Urine Sodium 23 Urine Potassium 61.4 Urine Chloride < 15 02/17/25 02/17/25 02/17/25 07:05 07:24 10:50 WBC 8.78 RBC 2.79 L Hgb 8.1 L Hct 24.1 L MCV 86.4 MCH 29.0 MCHC 33.6 RDW Std Deviation 48.1 H RDW Coeff of Sarina 15.3 H Plt Count 132 MPV 11.6 Sodium 123 L Potassium 5.1 Chloride 86 L Carbon Dioxide 22 Anion Gap 15 H BUN 119 H Creatinine 4.67 H* Est Cr Clr Drug Dosing 8.8 eGFR 8.90 BUN/Creatinine Ratio 25.5 H Glucose 111 H POC Glucose 124 H 157 H Osmolality Calcium 8.1 L Triglycerides 82 Cholesterol 75 LDL Cholesterol, Calc 29 VLDL Cholesterol, Calc 16 HDL Cholesterol 30 Cholesterol/HDL Ratio 2.5 TSH 2.608 Cortisol AM Sample 28.76 H Urine Osmolality Urine Sodium Urine Potassium Urine Chloride 02/17/25 02/17/25 15:08 16:21 WBC RBC Hgb Hct MCV MCH MCHC RDW Std Deviation RDW Coeff of Sarina Plt Count MPV Sodium 123 L Potassium 5.1 Chloride 87 L Carbon Dioxide 21 Anion Gap 15 H BUN 119 H Creatinine 4.78 H* Est Cr Clr Drug Dosing 8.6 eGFR 8.66 BUN/Creatinine Ratio 24.9 H Glucose 124 H POC Glucose 135 H Osmolality Calcium 8.0 L Triglycerides Cholesterol LDL Cholesterol, Calc VLDL Cholesterol, Calc HDL Cholesterol Cholesterol/HDL Ratio TSH Cortisol AM Sample Urine Osmolality Urine Sodium Urine Potassium Urine Chloride PG Care Time/CCT Total # of Minutes Spent Total Time Spent with Patient: Total time spent is greater than 50% in coordination of care (as documented) at patient's floor/unit and/or counseling patient: Coding Level of Care Code 17453 SUB INP/OBS CARE 2/35MIN Diagnoses CHF (congestive heart failure) I50.9
[2025-02-18 06:27] LABS: Hematocrit (blood only) 25.6 % (37.0-47.0); Hemoglobin 8.6 g/dL (12.0-16.0); Mean Corpuscular Hemoglobin 28.8 pg (25.0-34.0); Mean Corpuscular Volume 85.6 fL (80.0-100.0); Platelet Count 125 K/uL (130-400); RDW Standard Deviation 47.2 fL (36.4-46.3); Red Blood Count 2.99 M/uL (4.20-5.40); White Blood Count 10.27 K/ul (4.8-10.8)
[2025-02-18 06:45] LABS: Albumin Level 3.3 gm/dl (3.4-5.0); Anion Gap 17.0 (3-11); Calcium 7.9 mg/dl (8.6-10.3); Carbon Dioxide 19.0 mmol/L (21-32); Chloride 86.0 mmol/L (98-107); Creatinine Clr Calc Pharmacy 8.4 ml/min; Glucose 133.0 mg/dl (70-99(Fasting)); Iron 323.0 mcg/dl (35-150); Magnesium 3.5 mg/dl (1.7-2.4); Potassium 5.4 mmol/L (3.5-5.1); Sodium 122.0 mmol/L (136-145); Total Iron Binding Cap Calc 339.0 mcg/dl (250-450); Transferrin 242.0 mg/dl (200-360); Transferrin (FE) Percent Satur 95.0 % (15-50)
--- NOTE | 2025-02-18 06:52 | Hospitalist Progress Note ---
Date of Service February 18, 2025 Assessment & Plan (1) CHF (congestive heart failure): (2) Ischemic cardiomyopathy: (3) CKD stage 3b, GFR 30-44 ml/min: (4) Elevated troponin: Plan William Xie is an 79yo F with PMH including CKD3b, DM2 on Insulin, CAD s/p CABG, HFrEF, Pulmonary Hypertension, Cirrhosis, and Depression who presented to the hospital 02/12 with worsening of SOB for 3 days and chest pain that started the morning of coming to the ER. Initial workup notable for EKG showing new T wave inversion and ST segment depressions, and echo showing significant decrease in EF compared to prior studies. She is admitted for management of NSTEMI and Acute CHF Exacerbation. Requires continued admission for management and workup of her worsening renal function, likely as a consequence of contrast dye and aggressive diuresis for improved cardiac function. Will undergo temporary dialysis after cath placement by vascular, based on worsening kidney function. #JOBY on CKD3b #Hyponatremia #Hyperkalemia s/p contrast dye from cardiac caths and aggressive diuresis with bumex for new HFrEF exacerbation followup NSTEMI Na decreased at 122 in AM, K elevated at 5.4, creatinine continues to rise now 4.91 - no concerning tele findings, continues to be hemodynamically stable - nephro on board, appreciate recs and interventions: plan to pursue temporary dialysis based on worsening Na/K/Cr as well as phos and mag Dr Huber to place catheter today, Dr. Judge to set up dialysis thereafter - 02/17 labs: serum osmolality high end of normal, urine osmolality low- this points of likelihood of the contrast dye from heart caths inducing JOBY on pt's CKD, likely exacerbated further by bumex on 02/13 Diet advanced to nephro easy to chew, being wary of significant sodium intake and fluids as this could worsen pt's cardiac function by fluid overload trending BMP, mag, phos #Acute CHF exacerbation #NSTEMI - Worsening shortness of breath for 3 days prior to arrival. Echo on 02/12 showed: Normal LV size, borderline concentric LVH, mild global hypokinesis, and LVEF 25-30% (compared to Echo on 12/05/2024 w/ LVEF of 40-35%) - Left heart cath showed 100% occlusion of distal aspect of LCX stent and 100% occlusion of proximal LAD stent - Cardiology on board, appreciate recs - NSTEMI likely contributing to exacerbation of heart failure Continue DAPT: Clopidogrel + aspirin however holding aspirin for worsening kidney function - Metoprolol 200mg qAM at home. Holding given soft BP. - On Losartan 50mg po daily at home. Holding given BP. - Continue Atorvastatin 80mg qPM - Sublingual Nitroglycerin and Morphine as needed - holding off on diuresis - Dry weight ~68kg. Most recently 72.7kg, will obtain weight 02/18/25 AM. #Anemia, normocytic Hgb improved at 8.1 -> 8.6 s/p venofer infusion day prior - no overt signs or symptoms of bleeding reported or seen and pt has not been receiving much IV fluids due to narrow euvolemic range Signed transfusion consent, will transfuse for Hgb <7.0 CBC and iron profile in AM #RUQ tenderness / LUQ tenderness / UTI - AST/ALT: WNL on admission Currently some abdominal bloating w/ belching, constipation for 2 days -> given additional miralax dosage - RUQ US on 02/13 showed cholelithiasis, borderline (8.4mm) dilation of CBD, trace intraperitoneal fluid in the perihepatic region. - CTAP on 02/14 showed: Mildly dilated small bowel loops with air-fluid levels, cannot r/o SBO; Small amount of air in the urinary bladder, may be post-cath or current inflammatory changes; Mild left back pressure changes, no obvious renal stones; mild progression of perinephric stranding; Progression of pleural effusion; Mild ascites, new finding; Minimal circumferential mural thickening of the rectum with slight smudging of the mesorectal and presacral fat planes, could be proctitis, new finding - UA obtained 02/14 was cloudy with 1+ gluc, 1+ blood, 3+ LE, >50 WBC, and 4+ bacteria. Ucx pending switch from Unasyn IV to Augmentin PO - Having small, hard BMs; continue Miralax daily - Continue GI prophylaxis with Protonix 40mg daily and Pepcid 10mg daily - Morphine 2mg available q6h prn for pain #Parkinson disease - Continue Levodopa/Carbidopa #DM2 - Current home regimen: metformin 500mg BID, jardiance 10mg, NPH 32 units prior to breakfast and dinner, regular insulin 26u qAM and 20u in PM - Holding metformin. Continue Jardiance. Lantus 25 unit qAM - SSI w/ goal 110-150, CF 30, CR 10, BSGs ACHS Hypertension - Holding metoprolol & losartan given continued low BP Hyperlipidemia - Continue Atorvastatin Breast cancer s/p mastectomies -Continue anastrozole Diet: clear liquids, fluids <1200mL VTE ppx: heparin 5,000units q12 Admission and Anticipated Discharge Date Admission Date: February 12, 2025 Supervising Physician Co-Signing Physician Notes Resident Physician Supervision Note: I personally examined the patient and verified all [place] points of history and exam, discussed case, and agree with decision making with Dr. Fitch I discussed the case with the resident and agree with the findings and plan as documented in the note. Any exceptions or clarifications are listed here: None Patient presented with chest pain and dynamic EKG changes. Taken for heart catheterization multivessel disease with recommendation for medical management. Patient had exacerbation of acute kidney injury to her chronic kidney disease stage III likely from diuresis and contrast dye use for heart catheterization. PT did not improve, decision was made for dialysis, temporary dialysis cath was placed Patient continues with hyponatremia and hyperkalemia. She feels fatigued but not with acute issues , clinically the patient has improved no further chest pain or shortness of breath Card exam sounds to be regular I hear no murmurs her lungs remain diminished at the bases but otherwise clear her abdomen is NABS and soft extremities are without edema Continue to hold diuresis at this time trying to improve her hyponatremia hyperkalemia and renal failure in the face of heart failure reduced ejection fraction and recent NSTEMI given concerns for acute on chronic renal failure progressing, will have nephrology assist in management Documented By: Jeffrey Garcia MD Subjective Feeling weaker today but denies any SOB, chest pain, lightheadedness, or dizziness. Has been eating, about 1/3 of breakfast this morning. Notes she's been constipated for 2 days. Physical Exam Physical Exam: General: appearing in mild discomfort Resp: decreased breath sounds at bases b/l, otherwise generally clear to auscultation b/l CV: RRR, soft systolic murmur otherwise no m/r/g GI/Abd: normo-hyperactive BS, moderate abd distention but no guarding, some discomfort with palpation Extremities: Well perfused, no peripheral edema Results & Data Results & Data Vital Signs (Past 12 Hours) Vital Signs Temp Pulse Resp BP Pulse Ox O2 Del Method 02/18/25 03:01 36.7 C 74 18 102/58 L 96 Room Air 02/17/25 23:00 36.9 C 74 18 95/57 L 94 Room Air 02/17/25 20:00 Room Air 02/17/25 19:46 74 28 H 97 Room Air 02/17/25 19:26 36.7 C 74 18 100/62 98 Room Air Resident Activity Tracking Resident Involvement: Resident Care Provided Care Provided: Adult Hospital Medicine (1) CHF (congestive heart failure) Heart failure chronicity: unspecified Heart failure type: unspecified Qualified Code(s): I50.9 - Heart failure, unspecified
[2025-02-18 07:33] LABS: Blood Urea Nitrogen 133.0 mg/dl (6-23); Ferritin 379.6 ng/ml (8-388)
[2025-02-18] MEDS: LANTUS PER UNIT CHARGE SC SCH (08:04)
[2025-02-18] MEDS: SODIUM BICARBONATE 650 MG TAB PO SCH (09:23)
--- NOTE | 2025-02-18 10:00 | Nephrology Progress Note ---
Date of Service February 18, 2025 Assessment & Plan (1) Acute kidney injury: Plan: Non-oliguric. Remains intravascularly volume depleted with decreased EAV in the setting of CRS. Clinical presentation is not consistent with HRS. I suspect a component of ATN following cardiac catheterization and hemodynamic instability with persistent hypotension. Kidney dysfunction is progressing with significant azotemia and uremic symptoms and multiple electrolyte abnormalities. Risks/benefits of dialysis were discussed. William was receptive to proceeding with initiation of HD. I discussed with Dr. Huber and he will be available to place a dialysis catheter today. Vascular consultation requested. Medications are currently appropriately dosed for kidney function. Document strict I/O's. Repeat serum metabolic profile this evening. (2) CKD stage 3b, GFR 30-44 ml/min: Plan: CKD IIIb A2. Baseline creatinine ~1.8-2.0 mg/dL. MACR 50-250 mcg/mg. CKD attributed to underlying atherosclerosis and CRS. Cortical thickness is preserved on imaging. (3) CHF (congestive heart failure): Plan: Diuretics held. Metoprolol and RAASi held due to hypotension and JOBY. Cardiology following. (4) Ischemic cardiomyopathy: (5) Chronic hyponatremia: Plan: In setting of kidney dysfunction and CHF. Increasing azotemia and poor oral solute intake are primary contributing factors. Will provide low clearance HD treatment. Repeat labs this evening. Maintain 1.2 L daily fluid restriction. Laboratory studies and clinica presentation do not support hypothyroidism or adrenal insufficiency. (6) Acute hyperkalemia: Plan: Chronic hyperkalemia. RAASi avoided. Low K diet. Start MEDICAL RECORD RETRIEVAL SPECIALIST today. (7) Anemia: Plan: Iron profile acceptable. Epogen [id number] units will be provided with HD today. (8) UTI (urinary tract infection): Plan: Cx + E coli and alpha strep. Remains on Augmentin dosed appropriately for IHD (250 mg daily given in the evening). (9) Hematuria: Plan: Urine notable for evidence of cystitis which is currently being treated with Augmentin. UA + microscopy will be repeated once UTI treated. Review of records demonstrate chronic intermittent hematuria for which outpatient follow up is advised. Admission and Anticipated Discharge Date Admission Date: February 12, 2025 Yamileth Thomas was seen and evaluated this AM with her at the bedside. She does not feel well this morning. William did not sleep well last night and she is very tired this AM. She is clearly not feeling well overall. She denies chest pain or palpitations. She does endorse notable right sided abdominal pain/discomfort. She was able to tolerate some oatmeal for breakfast but appetite is poor. She does not endorse dyspnea. No fevers or chills. Generalized malaise and weakness. Her is concerned that he has seen a significant overall decline in the past few days. We discussed risks/benefits of hemodialysis and both William and her were agreeable to proceed. Review of Systems Review of Systems: All systems reviewed & are unremarkable except as noted in HPI & below Physical Exam Constitutional: + ill appearing and + frail appearing; n o acute distress Eyes: + anicteric sclerae; no conjunctival abn ormality ENMT: external ear and nose normal, oropharynx normal Mouth: + dry oral mucous membranes Neck: normal visual inspection and trachea midline Respiratory: + tachypneic Auscultation: lungs sweta r to auscultation bilaterally and + diminished lung sounds Cardiovascular: Rate/Rhythm: regular rate and regular rhythm Heart Sounds: normal S1 and normal S2 Gastrointestinal (Abdomen): Inspection/Auscultation: + abdomen distended Percussion/Palpation: + dullness to percussion; no guarding and abdomen not rigid Musculoskeletal: Extremities: no cyanosis and no clubbing Skin: normal turgor; no jaundice Neurologic: Motor/Sensory: + tremor; no asterixis Psychiatric: Orientation: alert and oriented x 3 Results & Data Vital Signs (Past 12 Hours) Vital Signs Temp Pulse Pulse Resp BP Pulse Ox O2 Del Method 02/18/25 08:14 Room Air 02/18/25 08:00 73 02/18/25 07:14 36.8 C 74 19 91/64 L 92 Room Air 02/18/25 06:54 71 16 95 Room Air 02/18/25 03:01 36.7 C 74 18 102/58 L 96 Room Air 02/17/25 23:00 36.9 C 74 18 95/57 L 94 Room Air Laboratory Results Laboratory Results - last 24 hr 02/17/25 02/17/25 02/17/25 10:50 15:08 16:21 WBC RBC Hgb Hct MCV MCH MCHC RDW Std Deviation RDW Coeff of Sarina Plt Count MPV Absolute Nucleated RBC Nucleated RBC % (auto) Sodium 123 L Potassium 5.1 Chloride 87 L Carbon Dioxide 21 Anion Gap 15 H BUN 119 H Creatinine 4.78 H* Est Cr Clr Drug Dosing 8.6 eGFR 8.66 BUN/Creatinine Ratio 24.9 H Glucose 124 H POC Glucose 157 H 135 H Calcium 8.0 L Phosphorus Magnesium Iron TIBC Transferrin Transferrin % Sat Ferritin Albumin 02/17/25 02/17/25 02/18/25 20:03 22:48 05:35 WBC 10.27 RBC 2.99 L Hgb 8.6 L Hct 25.6 L MCV 85.6 MCH 28.8 MCHC 33.6 RDW Std Deviation 47.2 H RDW Coeff of Sarina 15.2 H Plt Count 125 L MPV 12.0 Absolute Nucleated RBC 0.03 Nucleated RBC % (auto) 0.3 Sodium 122 L 122 L Potassium 5.4 H Chloride 86 L Carbon Dioxide 19 L Anion Gap 17 H BUN 133 H Creatinine 4.91 H* Est Cr Clr Drug Dosing 8.4 eGFR 8.39 BUN/Creatinine Ratio 27.1 H Glucose 133 H POC Glucose 183 H Calcium 7.9 L Phosphorus 8.8 H Magnesium 3.5 H Iron 323 H TIBC 339 Transferrin 242 Transferrin % Sat 95 H Ferritin 379.6 Albumin 3.3 L 02/18/25 07:19 WBC RBC Hgb Hct MCV MCH MCHC RDW Std Deviation RDW Coeff of Sarina Plt Count MPV Absolute Nucleated RBC Nucleated RBC % (auto) Sodium Potassium Chloride Carbon Dioxide Anion Gap BUN Creatinine Est Cr Clr Drug Dosing eGFR BUN/Creatinine Ratio Glucose POC Glucose 165 H Calcium Phosphorus Magnesium Iron TIBC Transferrin Transferrin % Sat Ferritin Albumin PG Care Time/CCT Total # of Minutes Spent Total Time Spent with Patient: Total time spent is greater than 50% in coordination of care (as documented) at patient's floor/unit and/or counseling patient: Coding Level of Care Code 97149 SUB INP/OBS CARE 3/50MIN Diagnoses Acute kidney injury N17.9 CKD stage 3b, GFR 30-44 ml/min N18.32 CHF (congestive heart failure) I50.9 Heart failure chronicity: unspecified Heart failure type: unspecified Ischemic cardiomyopathy I25.5 Chronic hyponatremia E87.1 Acute hyperkalemia E87.5 Anemia D64.9 UTI (urinary tract infection) N39.0 Hematuria R31.9 (3) CHF (congestive heart failure) Heart failure chronicity: unspecified Heart failure type: unspecified Qualified Code(s): I50.9 - Heart failure, unspecified
[2025-02-18] MEDS: EPOETIN ALFA 10,000 UNITS/ML VIAL SQ ONE (10:19)
--- NOTE | 2025-02-18 10:32 | Consultation ---
Date of Consultation February 18, 2025 Assessment & Plan (1) Acute kidney injury: Pt with JOBY and hyperkalemia, needs catheter for HD. Pt on plavix and has eaten some breakfast today. Discussed with Dr Huber, recommends temporary HD catheter placement for HD. Procedure, risks, benefits, and alternatives di scussed with pt and her , Primo. Pt expresses understanding and agreement, but requested her sign her consent forms. Patient was seen, examined, and chart reviewed. Agree with exam and treatment plan of the Vascular PA. History of Present Illness Reason for Consultation: JOBY Attending Physician: Jeffrey Garcia MD History of Present Illness 79 yo f with hx of CHF, CKD, DMII, anemia, ischemic cardiomyopathy, CAD, pulmonary htn, HTN, dyslipidemia, admitted with NSTEMI, seen in consultation today for dialysis catheter placement for HD. Pt underwent cardiac cath and developed JOBY post treamtent. Pt now with worsening renal fxn and hyperkalemia and uremic sx. Pt states she feels "awful." Admits mild nausea, ESPINO, orthopnea, general malaise. Denies JULES, fever, chest pain, SOB at rest, vomiting, rest pain, claudication, other complaints. Allergies Allergy/AdvReac Type Severity Reaction Status Date / Time lisinopril Allergy Intermediate Cough Verified 02/18/25 10:57 isosorbide AdvReac Intermediate Headache Verified 02/18/25 10:57 Home Medications Medication Instructions Recorded Confirmed Type anastrozole 1 mg tablet 1 mg PO QAM 11/08/18 02/12/25 History coenzyme Q10 200 mg capsule 200 mg PO QAM 01/06/20 02/12/25 History vit C 250 mg-vit E 90 mg-zinc 40 1 tab PO BID 09/26/21 02/12/25 History mg-copper 1 [id number] capsule (PreserVision AREDS-2) Spacer for Inhaler #1 ea 09/27/21 02/11/25 Rx prevagen 1 tab PO DAILY 05/29/22 02/12/25 History pen needle, diabetic 32 gauge x #400 ea 05/23/23 02/11/25 Rx 5/32" (BD Ultra-Fine Suzette Pen Needle) nebulizer and compressor #1 ea 07/10/23 02/11/25 Rx budesonide 0.5 mg/2 mL suspension 0.5 mg (2 mL) inhalation BID #60 mL 07/30/23 02/12/25 Rx for nebulization cyanocobalamin (vitamin B-12) 1,000 mcg PO 3XWK 12/19/23 02/12/25 History 2,500 mcg tablet nitroglycerin 0.4 mg sublingual 0.4 mg sublingual Q5M PRN chest 01/08/24 02/12/25 Rx tablet (Nitrostat) pain #25 tabs albuterol sulfate 90 mcg/actuation 2 puff inhalation Q6H PRN Wheezing 01/17/24 02/12/25 Rx aerosol inhaler #18 grams clopidogrel 75 mg tablet 75 mg PO DAILY #90 tabs 05/28/24 02/12/25 Rx choline [id number] 1 tab PO QAM 05/31/24 02/12/25 History empagliflozin 10 mg tablet 10 mg PO DAILY #30 tabs 06/20/24 02/12/25 Rx (Jardiance) primidone 50 mg tablet (Mysoline) See Rx Instructions .Route .COMPLEX 06/20/24 02/12/25 History carbidopa 25 mg-levodopa 100 mg 1 tab PO TID #90 tabs 10/30/24 02/12/25 Rx tablet metformin 500 mg tablet 500 mg PO BIDWMEAL 90 days #180 12/16/24 02/12/25 Rx tabs losartan 50 mg tablet 50 mg PO DAILY #90 tabs 01/02/25 02/12/25 Rx atorvastatin 80 mg tablet 80 mg PO QPM #90 tabs 01/05/25 02/12/25 Rx blood sugar diagnostic (Accu-Chek #300 ea 01/13/25 02/11/25 Rx Guide test strips) blood-glucose meter (Accu-Chek #1 ea 01/13/25 02/11/25 Rx Guide Glucose Meter) lancets (Accu-Chek Softclix #300 ea 01/13/25 02/11/25 Rx Lancets) metoprolol succinate 200 mg 200 mg PO QAM #90 tabs 01/16/25 02/12/25 Rx tablet,extended release 24 hr alendronate 70 mg tablet 70 mg PO WK 01/22/25 02/12/25 History blood-glucose sensor (DataFoxcom G7 #9 ea 01/28/25 02/11/25 Rx Sensor device) insulin regular human 100 unit/mL 26 unit subcut BID 01/29/25 02/12/25 History (3 mL) subcutaneous pen (Novolin R FlexPen) ipratropium 0.5 mg-albuterol 3 mg 3 ml inhalation Q4H PRN wheezing 02/05/25 02/12/25 Rx (2.5 mg base)/3 mL nebulization #180 mL soln glucagon 3 mg/actuation nasal spray 3 mg intranasal .q 20 minutes PRN 02/09/25 02/12/25 Rx hypoglycemia #2 ea bumetanide 2 mg tablet 2 mg PO BID #90 tabs 02/10/25 02/12/25 Rx metolazone 2.5 mg tablet 2.5 mg PO Q OTHER DAY PRN weight 02/10/25 02/12/25 Rx gain, edema, SOB #30 tabs insulin NPH isoph U-100 human 100 26 unit subcut BID 02/11/25 02/12/25 History unit/mL (3 mL) subcutaneous pen (Novolin N FlexPen) Patient History Medical History Parkinsonism Essential tremor Chronic hyponatremia CHF (congestive heart failure) Type 2 diabetes mellitus with retinopathy of both eyes, with long-term current use of insulin Breast cancer (07/2017) left breast infiltrating ductal CA dx 07/2017 (ER+/[place]+, Her 2 -) and right breast invasive ductal CA dx 11/2017 (ER+/[place]+, Her 2 +), s/p elective B/L mastectomy with right axillary dissection (0/7 nodes +), on Arimedex since Jan 2018 CAD (coronary artery disease) Hypertension Hyperlipidemia Solitary pulmonary nodule stable, seen by pulm, no further follow up recommended Internal hemorrhoid Seborrheic keratoses NSTEMI (non-ST elevated myocardial infarction) Myocardial Infarction 2009 History of COVID-19 01/2021>MILD SYMPTOMS *RESOLVED Surgical History H/O bilateral mastectomy SURGERY ONLY>(NO LIMB RESTRICTION) NO RECONSTRUCTION H/O lumpectomy LEFT X 2 History of tooth extraction History of surgery Right Axillary Dissection, Bilateral Breast Scar Revision - 12/2017 [facility] History of colonoscopy History of trigger finger right thumb release History of open reduction and internal fixation (ORIF) procedure RT ANKLE History of cataract surgery RT/LEFT History of cardiac cath STENTS 06/2010 [facility] (DIAG AND CX), 1 STENT 04/2011, AND 1 STENT 2013 [place] [facility] History of coronary artery bypass graft 3 VESSELS-2009 AT [facility] *FOLLOWS WITH DR. HAMMER Family History Sister Breast cancer Father Alcoholism Mother Heart disease Uncle Heart disease Daughter Family history of diabetes mellitus Other No family history of adverse response to anesthesia Denies family history of Ovarian cancer Prostate cancer Myocardial infarction Colorectal cancer Social History Smoking Status: Former smoker Tobacco Type: Cigarettes Age Started Using Tobacco: 13; Age Quit Using Tobacco: 43; packs per day: 0.75; Second Hand Exposure: No; Do You Dip or Chew Tobacco: No; Hx Alcohol Use: No Hx Substance Use: No Preferred Language: Korean Communication Ability: Effective Visual Impairment: No Limitations Hearing Ability: Normal Clammer Required: No Beliefs That Will Affect Care: None marital status: Current Living Situation: Spouse Current Living Situation Comment: lives at home with current occupational status: retired current occupation: Retired Feels Safe at Home: Yes Childhood Exposure to Second-Hand Smoke: Yes Diet: regular caffeine: Yes Dental Care, Regularly: No Physical Activity Frequency: Does not Exercise Seatbelt Use: always Sunscreen Use: Yes Assistive Devices: Cane Review of Systems Review of Systems: All systems reviewed & are unremarkable except as noted in HPI & below Physical Exam Constitutional: WD/WN, vitals as above cooperative; + uncomfortable and not in distress Respiratory: Auscultation: + diminished lung sounds and + crackles Cardiovascular: Rate/Rhythm: regular rate and regular rhythm Vessels: posterior tibial pulses present, dorsalis pedis pulses present and radial pulses present; + abnormal peripheral pulses Extremities: normal capillary refill and + edema Gastrointestinal (Abdomen): Inspection/Auscultation: abdomen normal to inspection and normal bowel sounds Percussion/Palpation: abdomen soft; abdomen nontender Musculoskeletal: no cyanosis or clubbing, extremities motor strength 5/5 Skin: no rashes, warm and dry Neurologic: moves all extremities and awake; no focal motor deficits and not confused Psychiatric: A+Ox3, euthymic affect Results & Data Vital Signs (Past 12 Hours) Vital Signs Temp Pulse Pulse Resp BP Pulse Ox O2 Del Method 02/18/25 08:14 Room Air 02/18/25 08:00 73 02/18/25 07:14 36.8 C 74 19 91/64 L 92 Room Air 02/18/25 06:54 71 16 95 Room Air 02/18/25 03:01 36.7 C 74 18 102/58 L 96 Room Air 02/17/25 23:00 36.9 C 74 18 95/57 L 94 Room Air
[2025-02-18] MEDS: ONDANSETRON INJ 2 MG/ML 2 ML VIAL IV STA (11:19)
[2025-02-18] MEDS: LIDOCAINE 1% LOCAL 20 ML VIAL ONE (11:31)
--- NOTE | 2025-02-18 11:40 | Operative Report ---
Post Operative Report Pre & Post Diagnosis Operation Date: 02/18/25 11:30 Pre-Op Diagnosis: NADIA Post-Op Diagnosis: Nadia I identified the patient and participated in the time-out.: Yes Procedure Operation Date: 02/18/25 11:30 Actual Procedures p Insertion Temporary Dialysis Catheter right femoral vein (Right) - Rc Huber MD Surgeon Rc Huber MD Launderer Hand None Estimated Blood Loss 5 Findings Consistent with Post-Op Diagnosis Specimens None Anesthesia Type Local Complications none Disposition Accompanied Patient To Recovery: No Disposition: Recovery Room Indications This is an 79-year-old female with acute kidney injury after heart. Dialysis is now needed. She lacks any venous access. Temporary dialysis catheter is recommended. I have discussed the risks options and benefits of the procedure with the patient. The patient understands the risks options and benefits and agrees to the procedure. Description of Procedure Patient was taken to the angio suite and placed in the supine position. The right groin was prepped and draped in a sterile manner. The patient was identified and a timeout performed. Local anesthesia was then administered to the appropriate areas of the groin. Ultrasound was then used to locate the right common femoral vein. The vein compressed easily, had no filing defects, and was patent. The vein was then punctured under direct ultrasound imaging. A guidewire was then passed centrally under fluoroscopic imaging. A stab wound was then made. The puncture site was then dilated and the temporary dialysis catheter was then inserted to a central position in the inferior vena cava. The catheter was then sutured in place using nylon sutures. Dermabond was used for a dressing on the puncture site. Both ports aspirated and flushed easily and were then packed with heparin. A sterile dressing was applied to the catheter. The patient left the operation room in satisfactory condition and tolerated the procedure well. All needle and sponge counts were correct at the end of the procedure. I attest to the content of the Intraoperative Record and any orders documented therein. Any exceptions are noted below.
[2025-02-18] MEDS: HEPARIN SOD (PORCINE) 5,000 UNITS/ML VIAL ONE (11:56)
--- NOTE | 2025-02-18 14:06 | Pharmacy Report ---
Pharmacy Glycemic Short Note 2 - Date of Service February 18, 2025 - Glycemic Short BSG Results (Last 24 hours): 02/17/25 02/17/25 02/17/25 15:08 16:21 20:03 Glucose 124 H POC Glucose 135 H 183 H 02/18/25 02/18/25 02/18/25 05:35 07:19 10:50 Glucose 133 H POC Glucose 165 H 199 H OUTPATIENT ANTIDIABETIC REGIMEN: * NPH 26 units SC BIDM * Novolog 26 units SC BIDM * Metformin 500 mg PO BIDM * Empagliflozin 10 mg PO daily HbA1c: 8.3% (01/29/25) ASSESSMENT: 02/18: * Received 19 units of insulin yesterday, 15 of which were basal. BSGs were: [phone] mg/dL. Only ate one time at dinner yesterday per deputy commonwealth's attorney. * Fasting BSG was 165 mg/dL this AM. Will increase basal scale slightly this evening to provide a max of 20 units of basal today. * Did eat a full breakfast then went to have a temp HD catheter placed and is now receiving dialysis. Unsure if this is a one time session or will be continued in the coming days. Will not adjust Novolog for now since basal was increased, but continue to monitor postprandial BSGs if appetite continues to improve. 02/17: * BSGs [phone] mg/dL yesterday and fasting today was 124 mg/dL after 15 units of lantus given at lunchtime yesterday. Patient also received 10 units of NovoLog yesterday. * Given limited PO intake and continued worsening renal function, will order a conservative 10 units of lantus this morning and add a supplemental scale for this evening if needed. 02/16 * Basal reduced to 10 units yesterday, after fasting 89 mg/dL with 25 units given the previous day/NPO status, SCR continues to increase * Fasting BSG 188 mg/dL this morning, will increase to 15 units given at lunch time * Patient has clear liquid diet ordered- 25% of breakfast documented as consumed. Will continue with current novolog parameters. 02/13 * Fasting this morning 177 mg/dL- slightly reduced lantus scale for PM dose today * SCr remains elevated 2.52 today- monitor * Tightened carb ratio slightly this morning, consider further adjustments with trend today 02/12 * FH is an 79 year old female w/ NSTEMI now s/p cardiac catheterization * Pertient PMH includes CAD, CHF, T2DM, and breast cancer * On heparin gtt (mixed in dextrose), diet ordered * Prior admission earlier this month, patient on very similar regimen to current at that time * Apparent JOBY based on current SCr of 2.59 mg/dL (SCr of 1.3 in December) PLAN FOR INPATIENT GLYCEMIC CONTROL: * Basal insulin * Lantus 10 units SC AM * Lantus 0-10 units SC HS (see eMAR for more details) * Bolus insulin * NovoLog per scale ACHS or Q6hrs while NPO * Goal Range: Low 110 mg/dL - High 150 mg/dL * Correction Factor: 30 mg/dL/unit * Nutritional / Prandial insulin per carb ratio of 1 unit per 10 grams CHO consumed
[2025-02-18] MEDS: EPOETIN ALFA 4,000 UNIT/ML VIAL IV ONE (14:17)
[2025-02-18] MEDS: MIDAZOLAM HCL 1 MG/ML 2ML VIAL ONE (15:50)
--- NOTE | 2025-02-18 16:35 | Cardiology Progress Note ---
Date of Service February 18, 2025 Assessment & Plan (1) CHF (congestive heart failure): Plan: ICM/HFrEFEF 25 % 01/2025; (long-term Entresto dcd due cost; no MRA with hyperkalemia) 2. CAD --post three-vessel CABG; Patent MCCORMACK-LAD, occluded pLAD stent, diffuse LCx disease, distal LCx stent now acutely occluded mild to moderate RCA disease with R->L collaterals 01/2025 Intolerant to Imdur 3. Moderate+ MR 4. Acute on chronic renal insufficiency, now on renal replacement therapy 5. Hyponatremia 6. Type 2 diabetes 7. Anemia The patient required insertion of a temporary dialysis catheter and dialysis today primarily for electrolyte abnormalities, poor urine output and symptoms of uremia Blood pressures remain low. I do not think there is an opportunity for more intensive medical therapy of her cardiac condition at this point Continue dual antiplatelet therapy. Admission and Anticipated Discharge Date Admission Date: February 12, 2025 Subjective The patient was resting this afternoon. She was fatigued. She does not report any specific pain, but does have some mild overall discomfort. Breathing without difficulty. Review of Systems Review of Systems: Per HPI Physical Exam Physical Exam: General: Alert. Oriented. Mild discomfort. Fatigue. HEENT: Sclerae anicteric Lungs: Clear to auscultation bilaterally, normal respiratory effort. No wheezing. Cardiac: Regular rate and rhythm, 1-6 systolic ejection murmur. Extremities: Well perfused, no peripheral edema Neuro: Nonfocal Psych: Alert orient x3, normal affect and mood Results & Data Vital Signs (Past 12 Hours) Vital Signs Temp Pulse Pulse Pulse Pulse Pulse Resp 02/18/25 16:27 72 02/18/25 15:15 36.7 C 87 02/18/25 15:00 80 02/18/25 14:45 80 02/18/25 14:30 76 02/18/25 14:15 71 02/18/25 14:00 77 02/18/25 13:45 76 02/18/25 13:30 76 02/18/25 13:15 76 02/18/25 13:06 76 02/18/25 13:00 36.8 C 75 02/18/25 12:40 76 17 02/18/25 12:20 75 17 02/18/25 12:05 78 17 02/18/25 11:35 81 19 02/18/25 11:33 79 14 02/18/25 11:28 74 15 02/18/25 11:22 80 14 02/18/25 11:00 02/18/25 10:58 36.5 C 83 20 02/18/25 08:14 02/18/25 08:00 73 02/18/25 07:14 36.8 C 74 19 02/18/25 06:54 71 16 BP BP Pulse Ox Pulse Ox O2 Del Method O2 Del Method O2 Flow Rate 02/18/25 16:27 02/18/25 15:15 95/64 L 02/18/25 15:00 92/58 L 02/18/25 14:45 89/55 L 02/18/25 14:30 96/58 L 02/18/25 14:15 91/56 L 02/18/25 14:00 95/54 L 02/18/25 13:45 90/53 L 02/18/25 13:30 85/54 L 02/18/25 13:15 102/56 L 02/18/25 13:06 97/56 L 02/18/25 13:00 02/18/25 12:40 92/54 L 94 Room Air 02/18/25 12:20 95/66 L 94 Room Air 02/18/25 12:05 99/60 L 92 Room Air 02/18/25 11:35 104/66 98 Oxymask 4 02/18/25 11:33 109/65 98 Oxymask 4 02/18/25 11:28 102/68 98 Oxymask 4 02/18/25 11:22 96/63 L 97 Oxymask 4 02/18/25 11:00 94 Room Air 02/18/25 10:58 92/58 L 95 Room Air 02/18/25 08:14 Room Air 02/18/25 08:00 02/18/25 07:14 91/64 L 92 Room Air 02/18/25 06:54 95 Room Air Laboratory Results Abnormal Lab Results 02/17/25 02/17/25 02/18/25 20:03 22:48 05:35 WBC 10.27 RBC 2.99 L Hgb 8.6 L Hct 25.6 L MCV 85.6 MCH 28.8 MCHC 33.6 RDW Std Deviation 47.2 H RDW Coeff of Sarina 15.2 H Plt Count 125 L MPV 12.0 Absolute Nucleated RBC 0.03 Nucleated RBC % (auto) 0.3 Sodium 122 L 122 L Potassium 5.4 H Chloride 86 L Carbon Dioxide 19 L Anion Gap 17 H BUN 133 H Creatinine 4.91 H* Est Cr Clr Drug Dosing 8.4 eGFR 8.39 BUN/Creatinine Ratio 27.1 H Glucose 133 H POC Glucose 183 H Calcium 7.9 L Phosphorus 8.8 H Magnesium 3.5 H Iron 323 H TIBC 339 Transferrin 242 Transferrin % Sat 95 H Ferritin 379.6 Albumin 3.3 L Hep Bs Antibody Hep Bs Antibody, Quant 02/18/25 02/18/25 02/18/25 07:19 10:50 14:04 WBC RBC Hgb Hct MCV MCH MCHC RDW Std Deviation RDW Coeff of Sarina Plt Count MPV Absolute Nucleated RBC Nucleated RBC % (auto) Sodium Potassium Chloride Carbon Dioxide Anion Gap BUN Creatinine Est Cr Clr Drug Dosing eGFR BUN/Creatinine Ratio Glucose POC Glucose 165 H 199 H Calcium Phosphorus Magnesium Iron TIBC Transferrin Transferrin % Sat Ferritin Albumin Hep Bs Antibody Non-Immune Hep Bs Antibody, Quant 3.64 02/18/25 16:09 WBC RBC Hgb Hct MCV MCH MCHC RDW Std Deviation RDW Coeff of Sarina Plt Count MPV Absolute Nucleated RBC Nucleated RBC % (auto) Sodium Potassium Chloride Carbon Dioxide Anion Gap BUN Creatinine Est Cr Clr Drug Dosing eGFR BUN/Creatinine Ratio Glucose POC Glucose 129 H Calcium Phosphorus Magnesium Iron TIBC Transferrin Transferrin % Sat Ferritin Albumin Hep Bs Antibody Hep Bs Antibody, Quant PG Care Time/CCT Total # of Minutes Spent Total Time Spent with Patient: Total time spent is greater than 50% in coordination of care (as documented) at patient's floor/unit and/or counseling patient: Coding Level of Care Code 18501 SUB INP/OBS CARE 235MIN Diagnoses CHF (congestive heart failure) I50.9
[2025-02-18 17:16] LABS: Hep B Surface Ag with confirm Negative (Negative)
[2025-02-18] MEDS: POLYETHYLENE (MIRALAX) 17 GM PACK PO SCH (20:52)
[2025-02-18 21:17] LABS: Anion Gap 14.0 (3-11); Blood Urea Nitrogen 100.0 mg/dl (6-23); Calcium 8.0 mg/dl (8.6-10.3); Carbon Dioxide 20.0 mmol/L (21-32); Chloride 92.0 mmol/L (98-107); Creatinine Clr Calc Pharmacy 11.2 ml/min; Glucose 100.0 mg/dl (70-99(Fasting)); Potassium 4.8 mmol/L (3.5-5.1); Sodium 126.0 mmol/L (136-145)
[2025-02-19 06:47] LABS: Hematocrit (blood only) 26.1 % (37.0-47.0); Hemoglobin 8.6 g/dL (12.0-16.0); Mean Corpuscular Hemoglobin 28.6 pg (25.0-34.0); Mean Corpuscular Volume 86.7 fL (80.0-100.0); Platelet Count 118 K/uL (130-400); RDW Standard Deviation 48.2 fL (36.4-46.3); Red Blood Count 3.01 M/uL (4.20-5.40); White Blood Count 12.50 K/ul (4.8-10.8)
--- NOTE | 2025-02-19 06:54 | Hospitalist Progress Note ---
Date of Service February 19, 2025 Assessment & Plan (1) CHF (congestive heart failure): (2) Ischemic cardiomyopathy: (3) CKD stage 3b, GFR 30-44 ml/min: (4) Elevated troponin: Plan William Xie is an 79yo F with PMH including CKD3b, DM2 on Insulin, CAD s/p CABG, HFrEF, Pulmonary Hypertension, Cirrhosis, and Depression who presented to the hospital 02/12 with worsening of SOB for 3 days and chest pain that started the morning of coming to the ER. Initial workup notable for EKG showing new T wave inversion and ST segment depressions, and echo showing significant decrease in EF compared to prior studies. She is admitted for management of NSTEMI and related CHF Exacerbation. Requires continued admission for management and workup of her worsening renal function now on temp hemodialysis, likely as a consequence of contrast dye and aggressive diuresis for improved cardiac function. UPDATE at 18:50 patient had a code purple called on her around 1700 when she reportedly fainted upon turning her in bed. BP was down to 80s/50s and glucose was 59; was given a small fluid bolus and half ampule of D50 - BP improved a bit however CBC showing WBCs 15 up from 12, AST 1242, ALT 369, APK 338) - now on zosyn and obtaining blood cultures #JOBY on CKD3b, temporary hemodialysis #Hyponatremia #Hyperkalemia s/p contrast dye from cardiac caths and aggressive diuresis with bumex for new HFrEF exacerbation followup NSTEMI Na improved to 128, K again increasing at 5.1, creatinine >4 again after initial HD session day prior; phos still very elevated >7 - no concerning tele findings, continues to be hemodynamically stable - nephro on board, appreciate recs and interventions: continue temporary dialysis based on worsening Na/K/Cr as well as phos and mag Continue dialysis as tolerated, next labs in AM per nephro rec - 02/17 labs: serum osmolality high end of normal, urine osmolality low- this points of likelihood of the contrast dye from heart caths inducing JOBY on pt's CKD, likely exacerbated further by bumex on 02/13 Diet nephro easy to chew, being wary of significant sodium intake and fluids as this could worsen pt's cardiac function by fluid overload trending BMP, mag, phos #Acute CHF exacerbation #NSTEMI - Worsening shortness of breath for 3 days prior to arrival. Echo on 02/12 showed: Normal LV size, borderline concentric LVH, mild global hypokinesis, and LVEF 25-30% (compared to Echo on 12/05/2024 w/ LVEF of 40-35%) - Left heart cath showed 100% occlusion of distal aspect of LCX stent and 100% occlusion of proximal LAD stent - Cardiology on board, appreciate recs - NSTEMI likely contributing to acute exacerbation of heart failure Continue DAPT: Clopidogrel + aspirin however holding aspirin for worsening kidney function - Metoprolol 200mg qAM at home. Holding given soft BP. - On Losartan 50mg po daily at home. Holding given BP. - Continue Atorvastatin 80mg qPM - Sublingual Nitroglycerin and Morphine as needed - holding off on diuresis- clinically dry and - Dry weight ~68kg. Currently 76.3kg 02/19/25 #Anemia, normocytic Hgb improved at 8.1 -> 8.6, stable s/p venofer 02/17 - no overt signs or symptoms of bleeding reported or seen and pt has not been receiving much IV fluids due to narrow euvolemic range Signed transfusion consent, will transfuse for Hgb <7.0 CBC and iron profile in AM #RUQ tenderness / LUQ tenderness / UTI - AST/ALT: WNL on admission Currently some abdominal bloating w/ belching, constipation for 2 days -> given additional miralax dosage - RUQ US on 02/13 showed cholelithiasis, borderline (8.4mm) dilation of CBD, trace intraperitoneal fluid in the perihepatic region. - CTAP on 02/14 showed: Mildly dilated small bowel loops with air-fluid levels, cannot r/o SBO; Small amount of air in the urinary bladder, may be post-cath or current inflammatory changes; Mild left back pressure changes, no obvious renal stones; mild progression of perinephric stranding; Progression of pleural effusion; Mild ascites, new finding; Minimal circumferential mural thickening of the rectum with slight smudging of the mesorectal and presacral fat planes, could be proctitis, new finding - UA obtained 02/14 was cloudy with 1+ gluc, 1+ blood, 3+ LE, >50 WBC, and 4+ bacteria. Ucx pending switch from Unasyn IV to Augmentin PO - Having small, hard BMs; continue Miralax daily - Continue GI prophylaxis with Protonix 40mg daily and Pepcid 10mg daily - Morphine 2mg available q6h prn for pain #Parkinson disease - Continue Levodopa/Carbidopa #DM2 - Current home regimen: metformin 500mg BID, jardiance 10mg, NPH 32 units prior to breakfast and dinner, regular insulin 26u qAM and 20u in PM - Holding metformin. Continue Jardiance. Lantus 25 unit qAM - SSI w/ goal 110-150, CF 30, CR 10, BSGs ACHS Hypertension - Holding metoprolol & losartan given continued low BP Hyperlipidemia - Continue Atorvastatin Breast cancer s/p mastectomies -Continue anastrozole Diet: clear liquids, fluids <1200mL VTE ppx: heparin 5,000units q12 Admission and Anticipated Discharge Date Admission Date: February 12, 2025 Supervising Physician Co-Signing Physician Notes Patient seen and examined, chart reviewed, case discussed with Little Figueroa and I agree with the assessment and plan as above except as otherwise noted Labs and images reviewed Seen as bedside this morning. Continues to feel fatigued, tired. Denies chest pain, chest pressure. Still having some urine output. Diuresis remains held. JOBY likely due to ATN and cardiorenal syndrome. S/p HD 02/18. Anticipate dialysis 02/20. Nephrology following, free water restriction continued. Hyponatremia persists, slowly improving. 128 up from previous 126. Potassium 5.1. Phosphorus 7.5 . saturating on room air, lungs are diminished but clear without evidence of overt edema, she denies urinary symptoms, completing antibiotics for suspected UTI. No lower extremity edema, MM tacky. Abd soft, NT. Prior gaseous distention resolved. Agree with above Addendum: Patient seen in afternoon during CODE PURPLE. Patient was rolling in bed and per nusing resport she had a bowel movement became hypotensive. Inital pressures 81/53systolic. Placed flat on the bed. Abd soft. BSG 70s. HR 80s. BSG reported 50s, on recheck 70s. Given 1/2 amp d50. Hx cardiorenal and undergoing HD, clinically appears dry with tachy MMs, poor PO intake, and lungs clear, 100% saturation on O2. Given 500cc NSS bolus. Pt improving to 90/60s. ?vagdal event with hypotension, volume depletion, vs cardiorenal. As her lungs were clear and with normal sats and she appeared contracted with poor PO intake --> 500cc @ 500/hr, and additional 500cc pending volume and lung reassessments. She reports she felt like she was clinically improving on second reassessment. BP still borderline low, but improving and pt reports she was starting to feel better at bedside. Fluids continued 500cc to be run slowly with intermittent BP and pulm checks due to recently severely reduced EF and ischemic disease. Has had some intermitted GI discomfort, no clinical bleeding. H&H stable, no evidence of bleeding. She was not tachycardic at reassessment. Signed out directly to night team for reassessment 2/2 concern for tenuous BP with guarded progression/improvement at bedside. Subjective Seen at bedside this AM, appearing and feeling tired. Overnight denies any concerning symptoms. States she has not had a BM in a few days and still belching more than usual. Willing to try more miralax to help her go. No reported chest pain, SOB, or lightheadedness. Physical Exam Physical Exam: General: appearing tired and in mild discomfort Resp: decreased breath sounds at bases b/l, otherwise generally clear to auscultation b/l CV: RRR, soft systolic murmur otherwise no m/r/g GI/Abd: normo-hyperactive BS, moderate abd distention but no guarding, some discomfort with palpation Extremities: Well perfused, no peripheral edema Results & Data Results & Data Vital Signs (Past 12 Hours) Vital Signs Temp Pulse Pulse Pulse Resp BP Pulse Ox 02/19/25 04:21 36.9 C 77 21 104/63 96 02/18/25 23:45 36.6 C 79 20 101/63 94 02/18/25 23:00 78 02/18/25 20:00 02/18/25 19:33 37.0 C 84 24 101/55 L 94 O2 Del Method 02/19/25 04:21 Room Air 02/18/25 23:45 Room Air 02/18/25 23:00 02/18/25 20:00 Room Air 02/18/25 19:33 Room Air Resident Activity Tracking Resident Involvement: Resident Care Provided Care Provided: Adult Hospital Medicine (1) CHF (congestive heart failure) Heart failure chronicity: unspecified Heart failure type: unspecified Qualified Code(s): I50.9 - Heart failure, unspecified
[2025-02-19 07:06] LABS: Anion Gap 16.0 (3-11); Blood Urea Nitrogen 103.0 mg/dl (6-23); Calcium 8.1 mg/dl (8.6-10.3); Carbon Dioxide 21.0 mmol/L (21-32); Chloride 91.0 mmol/L (98-107); Creatinine Clr Calc Pharmacy 10.1 ml/min; Glucose 68.0 mg/dl (70-99(Fasting)); Potassium 5.1 mmol/L (3.5-5.1); Sodium 128.0 mmol/L (136-145)
--- NOTE | 2025-02-19 09:07 | Nephrology Progress Note ---
Date of Service February 19, 2025 Assessment & Plan (1) Acute kidney injury: Plan: Non-oliguric. JOBY attributed to ATN and cardiorenal syndrome. 1st HD treatment completed 02/18 via R femoral catheter placed by Dr. Huber. The catheter functioned well yesterday. The catheter was sluggish with high venous pressure at the start of treatment but adequate blood flow achieved running V-->A. The orders for her second treatment were entered into the EHR this AM and reviewed with the diaylsis RN. William was seen and evaluated at the start of HD and during treatment. BP low but acceptable. She does not endose symptomatic hypotension. Medications are currently appropriately dosed for kidney function. Document strict I/O's. Repeat serum metabolic profile tomorrow AM. Anticipate next HD treatment tomorrow. (2) CKD stage 3b, GFR 30-44 ml/min: Plan: CKD IIIb A2. Baseline creatinine ~1.8-2.0 mg/dL. MACR 50->250 mcg/mg. CKD attributed to underlying atherosclerosis and CRS. Cortical thickness is preserved on imaging. (3) CHF (congestive heart failure): Plan: Diuretics held. Metoprolol and RAASi held due to hypotension and JOBY. Cardiology following. (4) Ischemic cardiomyopathy: (5) Chronic hyponatremia: Plan: Improving with HD. Continue 1.2 L daily free water restriction. (6) Acute hyperkalemia: Plan: Maintain dietary restriction. HD Rx adjusted accordingly. (7) Anemia: Plan: Iron profile acceptable. Epogen 4000 units provided with HD 02/18. (8) UTI (urinary tract infection): Plan: Cx + E coli and alpha strep. Remains on Augmentin dosed appropriately for IHD. (9) Hematuria: Plan: Urine notable for evidence of cystitis which is currently being treated with Augmentin. UA + microscopy will be repeated once UTI treated. Review of records demonstrate chronic intermittent hematuria for which outpatient follow up is advised. Admission and Anticipated Discharge Date Admission Date: February 12, 2025 Subjective No acute events overnight. William tolerated HD well yesterday. There were no complications with treatment. She is feeling slightly better this morning. Abdomen is distended but she denies abdominal pain. Mild discomfort but tenderness has improved. Garcia is draining clear yellow urine. She remains non-oliguric with 400 ml in the past 24 hours. Appetite is poor. She was feeling very weak this morning and was unable to stand with 2 person assist to obtain a standing weight. She describes generalized weakness. She denies any shortness of breath. She is not experiencing chest pains or palpitations. No fevers or chills. Review of Systems Review of Systems: All systems reviewed & are unremarkable except as noted in HPI & below Physical Exam Constitutional: + frail appearing; no acute distress Eyes: + anicteric sclerae; no conjunctival abn ormality ENMT: external ear and nose normal, oropharynx normal Neck: normal visual inspection and trachea midline Respiratory: normal respiratory effort Auscultation: lungs clear to auscultation bilaterally, + diminished lung sounds and + rales (soft BL to midlung) Cardiovascular: Rate/Rhythm: regular rate and regular rhythm Heart Sounds: normal S1 and normal S2 R femoral HD catheter Gastrointestinal (Abdomen): Inspection/Auscultation: + abdomen distended Percussion/Palpation: + dullness to percussion; no guarding and abdomen not rigid Musculoskeletal: Extremities: no cyanosis and no clubbing Skin: normal turgor; no jaundice Neurologic: Motor/Sensory: no tremor and no asterixis Psychiatric: Orientation: alert and oriented x 3 Results & Data Vital Signs (Past 12 Hours) Vital Signs Temp Pulse Pulse Pulse Pulse Resp BP 02/19/25 07:53 36.3 C L 87 20 95/68 L 02/19/25 07:12 81 16 02/19/25 04:21 36.9 C 77 21 104/63 02/18/25 23:45 36.6 C 79 20 101/63 02/18/25 23:00 78 Pulse Ox O2 Del Method 02/19/25 07:53 94 Room Air 02/19/25 07:12 96 Room Air 02/19/25 04:21 96 Room Air 02/18/25 23:45 94 Room Air 02/18/25 23:00 Laboratory Results Laboratory Results - last 24 hr 02/18/25 02/18/25 02/18/25 10:50 14:04 16:09 WBC RBC Hgb Hct MCV MCH MCHC RDW Std Deviation RDW Coeff of Sarina Plt Count MPV Absolute Nucleated RBC Nucleated RBC % (auto) Sodium Potassium Chloride Carbon Dioxide Anion Gap BUN Creatinine Est Cr Clr Drug Dosing eGFR BUN/Creatinine Ratio Glucose POC Glucose 199 H 129 H Calcium Phosphorus Hep Bs Antigen Negative Hep Bs Antibody Non-Immune Hep Bs Antibody, Quant 3.64 SARS-CoV-2, RNA, NAAT 02/18/25 02/18/25 02/18/25 19:42 20:46 Unknown WBC RBC Hgb Hct MCV MCH MCHC RDW Std Deviation RDW Coeff of Sarina Plt Count MPV Absolute Nucleated RBC Nucleated RBC % (auto) Sodium 126 L Potassium 4.8 Chloride 92 L Carbon Dioxide 20 L Anion Gap 14 H BUN 100 H D Creatinine 3.72 H D Est Cr Clr Drug Dosing 11.2 eGFR 11.70 BUN/Creatinine Ratio 26.9 H Glucose 100 H POC Glucose 141 H Calcium 8.0 L Phosphorus Hep Bs Antigen Hep Bs Antibody Hep Bs Antibody, Quant SARS-CoV-2, RNA, NAAT NEGATIVE 02/19/25 02/19/25 06:09 07:17 WBC 12.50 H RBC 3.01 L Hgb 8.6 L Hct 26.1 L MCV 86.7 MCH 28.6 MCHC 33.0 RDW Std Deviation 48.2 H RDW Coeff of Sarina 15.4 H Plt Count 118 L MPV 12.1 Absolute Nucleated RBC 0.02 Nucleated RBC % (auto) 0.2 Sodium 128 L Potassium 5.1 Chloride 91 L Carbon Dioxide 21 Anion Gap 16 H BUN 103 H Creatinine 4.18 H D Est Cr Clr Drug Dosing 10.1 eGFR 10.17 BUN/Creatinine Ratio 24.6 H Glucose 68 L POC Glucose 92 Calcium 8.1 L Phosphorus 7.5 H Hep Bs Antigen Hep Bs Antibody Hep Bs Antibody, Quant SARS-CoV-2, RNA, NAAT PG Care Time/CCT Total # of Minutes Spent Total Time Spent with Patient: Total time spent is greater than 50% in coordination of care (as documented) at patient's floor/unit and/or counseling patient: Coding Level of Care Code 31738 SUB INP/OBS CARE 3/50MIN Diagnoses Acute kidney injury N17.9 CKD stage 3b, GFR 30-44 ml/min N18.32 CHF (congestive heart failure) I50.9 Heart failure chronicity: unspecified Heart failure type: unspecified Ischemic cardiomyopathy I25.5 Chronic hyponatremia E87.1 Acute hyperkalemia E87.5 Anemia D64.9 UTI (urinary tract infection) N39.0 Hematuria R31.9 (3) CHF (congestive heart failure) Heart failure chronicity: unspecified Heart failure type: unspecified Qualified Code(s): I50.9 - Heart failure, unspecified
--- NOTE | 2025-02-19 10:43 | Billing Data ---
Date of Service February 13, 2025 Coding Level of Care Code 29439 SUB INP/OBS CARE MIN
--- NOTE | 2025-02-19 10:43 | Billing Data ---
Date of Service February 14, 2025 Coding Level of Care Code 25419 SUB INP/OBS CARE MIN
--- NOTE | 2025-02-19 10:44 | Billing Data ---
Date of Service February 19, 2025 Coding Level of Care Code 53718 SUB INP/OBS CARE MIN
--- NOTE | 2025-02-19 10:44 | Billing Data ---
Date of Service February 15, 2025 Coding Level of Care Code [id number] SUB INP/OBS CARE
[2025-02-19] MEDS: DEXTROSE 50% 50 ML SYRINGE IV PRN (17:41)
[2025-02-19 17:45] LABS: Hematocrit (blood only) 27.6 % (37.0-47.0); Hemoglobin 8.7 g/dL (12.0-16.0); Immature Granulocytes # (auto) 0.18 K/uL (0.01-0.20); Immature Granulocytes % (auto) 1.2 %; Mean Corpuscular Hemoglobin 28.5 pg (25.0-34.0); Mean Corpuscular Volume 90.5 fL (80.0-100.0); Platelet Count 129 K/uL (130-400); RDW Standard Deviation 50.9 fL (36.4-46.3); Red Blood Count 3.05 M/uL (4.20-5.40); White Blood Count 15.61 K/ul (4.8-10.8)
[2025-02-19] MEDS: SODIUM CHLORIDE 0.9% 500 ML IV ONE (17:47)
[2025-02-19 18:31] LABS: Alanine Aminotransferase 369.0 U/L (7-52); Albumin Globulin Ratio 0.9 (0.9-2); Albumin Level 3.1 gm/dl (3.4-5.0); Alkaline Phosphatase 338.0 U/L (34-104); Anion Gap 21.0 (3-11); Bilirubin,Total 1.3 mg/dl (0.2-1.0); Blood Urea Nitrogen 65.0 mg/dl (6-23); Calcium 8.1 mg/dl (8.6-10.3); Carbon Dioxide 16.0 mmol/L (21-32); Chloride 94.0 mmol/L (98-107); Creatinine Clr Calc Pharmacy 13.1 ml/min; Globulin 3.3 gm/dl (2.5-4.0); Glucose 94.0 mg/dl (70-99(Fasting)); Potassium 4.9 mmol/L (3.5-5.1); Sodium 131.0 mmol/L (136-145); Total Protein 6.4 gm/dl (6.0-8.3)
[2025-02-19] MEDS ORDERED: PIPERACILLIN/TAZOBACTAM 4.5 GM/100 ML BAG IV ONE (19:00)
[2025-02-19 19:52] VITALS: PULSE 84; RESP 24; TEMP 97.9; O2SAT 95
[2025-02-19 19:53] VITALS: BP 74/57
[2025-02-19] MEDS: SODIUM BICARB 8.4% INJ 50 MEQ/50 ML SYR IV STA (20:15)
[2025-02-19] MEDS: ALBUMIN 25% 25 GM/100 ML VIAL IV ONE (20:16)
[2025-02-19] MEDS: DEXTROSE 50% 50 ML SYRINGE IV ONE (20:17)
[2025-02-19] MEDS: CALCIUM GLUCONATE 1,000 MG/60 ML BAG IV SCH (20:18)
--- NOTE | 2025-02-19 20:20 | Communication Note ---
Date of Service: February 19, 2025 Contacted by RN of patient developing hypotension of 74/57 as well as new hypoxia reaching 87-88% at room air with new oxygen requirement of NC 2 lpm. A rrived at bedside to assess. Patient found to be awake and alert, uncomfortable appearing, and slightly drowsy. Endorses feeling tired as well as new b/l LE pain, but no pain, chest pain, or other new sxs. Ordered stat CXR to assess for possible effusions/edema given fluid boluses given throughout the day as management for hypotension, as well as albumin and bicarb amp. Discussed patient status with ICU SONALI preemptively in case her level of care would need to be escalated overnight. Shortly after, code PURPLE was called due to patient developing gagging w/ associated SOB, hypoxia and hypotension. On arrival, pulse was lost and thus code was changed to code BLUE and chest compressions began. ICU SONALI and ED physician trying to establish advanced airway via intubation, and despite some difficulty managed to place ETT. After a few rounds of chest compressions and initiating NE drip, patient's who was at bedside requested to stop resuscitative measures. Chest compressions were stopped and patient was extubated. Patient status changed to [employer] and a few minutes later passed with time of being called at 20:54. and one of her daughters at bedside. For further details regarding events of code blue, please refer to separate note. Resident Activity Tracking Resident Involvement: Resident Care Provided Care Provided: Adult [facility]
[2025-02-19] MEDS ORDERED: NOREPINEPHRINE/D5W 4 MG/250 ML IV ONE (20:27)
[2025-02-19] MEDS ORDERED: RAPID SEQUENCE INDUCTION BAG ONE (20:28)
[2025-02-19] MEDS ORDERED: MoRPHine SULFATE 2 MG/ML CARP ONE (20:43)
[2025-02-19] MEDS ORDERED: MoRPHine SULFATE 2 MG/ML CARP IV PRN (20:46)
[2025-02-19] MEDS ORDERED: LORazepam Inj 0.5 MG in SYRINGE 0.25 ML IV PRN (20:46)
[2025-02-19] MEDS ORDERED: ONDANSETRON INJ 2 MG/ML 2 ML VIAL IV PRN (20:46)
[2025-02-19] MEDS ORDERED: GLYCOPYRROLATE 0.2 MG/ML VIAL IV PRN (20:46)
--- NOTE | 2025-02-19 20:51 | Emergency Department Note ---
ED Visit Note CODE BLUE note. The patient is an 79-year-old female who is in room 203 who is made initially a code purple. This was upgraded to a cardiac arrest. When I arrived at the room the patient was hypotensive but not breathing. She was not awake or alert. The provider from the ICU was at the head of the bed evaluating the patient. The patient only had 1 IV in her right hand. I placed an 18-gauge peripheral IV into the left external jugular vein. Good flush was noted. This was used for the code line. Initial attempt was made for endotracheal intubation but the equipment seemed to be malfunctioning and the GlideScope kept shutting off. After the attempt by the provider from the ICU I offered to take a look. Endotracheal Intubation Indication cardiac arrest. The patient was on 100% oxygen via NRB prior to the procedure. Suction, airway equipment, RSI drugs, respiratory equipment, and appropriate personnel were prepared prior to the initiation of the procedure. A time out was taken. Induction was performed with etomidate. After observing the clinical benefit of the medications, the airway was easily visualized utilizing a glide scope. A 7.5 size ETT tube was placed atraumatically to 25 cm using standard technique. The cuff inflated without signs of malfunction. There were bilateral breath sounds, positive colormetric change, no gastric sounds, a good capnography waveform, and post procedure pulse oximetry was poor. The patient tolerated the procedure well. I discussed the patient's condition with her significant other. I discussed the patient's condition with the [facility] hospitalist who was also at the bedside for the entirety of the course. The patient's significant other states that she would not want to be this way and would not want to be on a ventilator. He asked that we refrain from any further resuscitation efforts. After discussion with the patient the decision was made to withdraw the endotracheal tube as well. The patient was left in the care of her nursing staff. I did closed-loop communication with the [facility] prior to leaving the floor. .
[2025-02-19] MEDS ORDERED: LORazepam Inj 0.5 MG in SYRINGE 0.25 ML IV SCH (21:00)
--- NOTE | 2025-02-19 21:18 | Death Pronouncement Note ---
Date of Service February 19, 2025 Pronouncement Note Admission Date February 12, 2025 Date and Time of Date of : 02/19/25 Time of : 20:54 Preliminary Cause of (1) Cardiac arrest: (2) Acute kidney injury superimposed on CKD: (3) CHF (congestive heart failure): Heart failure chronicity: unspecified Heart failure type: unspecified Qualified Code(s): I50.9 - Heart failure, unspecified (4) NSTEMI (non-ST elevated myocardial infarction): Summary Notified by nursing at 19:58 that patient was hypotensive 74/57. Examined at bedside - patient complaining of pain in the legs. Appeared somewhat ashen in color. Maintenance fluids running at 100mL/hr. Labs from 17:31 reviewed - revealed worsening acidosis with HCO3=16, AG=21. BSG=66 for which she received dextrose. Ordered Albumin x 25gm, Calcium gluconate x 2 gm, NaHCO3 push x 1 amp Patient became less responsive, code purple called which was transitioned to Code Blue. Please see Code Note for details -Patient received two rounds of epinephrine -Bicarbonate -Levophed drip -Intubation at bedside. Did verbalize his desire to cease with resuscitative efforts as he did not wish to prolong patient's pain and suffering. At the time efforts were aborted, patient did have a dopplerable femoral pulse, levophed infusing. desired no further resuscitative care and opted for compassionate extubation and comfort measures. and daughter at bedside. They contacted second daughter who will be coming to the bedside. Patient pronounced at 20:54 Additional Data Confirmation of : no pulse, no respirations, no heart sounds and pupils fixed and dilated Pronouncement Performed By: Attending Physician Family: at bedside Attending physician: Xu Kim MD Was code activated?: Yes Coding Level of Care Code 75919 INP/OBS DISCH >30 MIN Diagnoses Cardiac arrest I46.9 Acute kidney injury superimposed on CKD N17.9; N18.9 CHF (congestive heart failure) I50.9 Heart failure chronicity: unspecified Heart failure type: unspecified NSTEMI (non-ST elevated myocardial infarction) I21.4
--- NOTE | 2025-02-19 23:41 | Ultrasound Report ---
Exam(s): US LIVER EXAM: US Abdomen Limited CLINICAL HISTORY: Reason for exam: new AST 1242, evaluate path. OTHER: Other Notes: Abnormal labs, abdomen pain. PANC duct 0.3 cm LIVER 17 cm. Rt pleural effusion seen. GB ??partially distended. wall 0.5 cm, edematous appearance. Negative Blanca's. Small amount cheryl fluid vs ascites. CBD 1. 0 cm. RK 9.8cm. No hydro. Incidental ascites seen RLQ and LLQ. Small amount. TECHNIQUE: Real-time ultrasound of the abdomen with image documentation. COMPARISON: No relevant prior studies available. FINDINGS: Gallbladder: Gallbladder wall thickening. Small amount of pericholecystic fluid. Common bile duct: Dilated common bile duct measuring 1 cm. Kidneys: Unremarkable. No stones. No hydronephrosis. Right kidney measures 9.8 cm. Free fluid: Small amount of intra-abdominal volume of abdominal and pelvic ascites. IMPRESSION: Gallbladder wall thickening and pericholecystic fluid consistent with acute cholecystitis Common bile duct is dilated suggesting choledocholithiasis. MRCP recommended for further evaluation. Small amount of intra-abdominal ascites. Electronically signed by: Asim Bone MD 02/19/25 23:40 PM
[2025-02-20] MEDS ORDERED: PIPERACILLIN/TAZOBACTAM 4.5 GM/100 ML BAG IV SCH (03:00)
== END 2025-02-19 23:31 | disposition expired ==
LOC: ED 05:53 → CC 09:00 → 2E 09:01 → SUATTDRO 09:01
DX: I34.0 Nonrheumatic mitral (valve) insufficiency; E11.22 Type 2 diabetes mellitus with diabetic chronic kidney disease; Y92.009 Unspecified place in unspecified non-institutional (private) residence as the place of occurrence of the external cause; Z85.3 Personal history of malignant neoplasm of breast; D64.9 Anemia, unspecified; Z82.49 Family history of ischemic heart disease and other diseases of the circulatory system; B96.20 Unspecified Escherichia coli [E. coli] as the cause of diseases classified elsewhere; Z51.5 Encounter for palliative care; Z79.02 Long term (current) use of antithrombotics/antiplatelets; K59.00 Constipation, unspecified; G20.C Parkinsonism, unspecified; Z87.891 Personal history of nicotine dependence; Z79.4 Long term (current) use of insulin; Z95.5 Presence of coronary angioplasty implant and graft; E11.319 Type 2 diabetes mellitus with unspecified diabetic retinopathy without macular edema; B95.4 Other streptococcus as the cause of diseases classified elsewhere; N39.0 Urinary tract infection, site not specified; Y71.2 Prosthetic and other implants, materials and accessory cardiovascular devices associated with adverse incidents; I25.5 Ischemic cardiomyopathy; T82.855A Stenosis of coronary artery stent, initial encounter; Z66 Do not resuscitate; Z95.1 Presence of aortocoronary bypass graft; N17.0 Acute kidney failure with tubular necrosis; I27.20 Pulmonary hypertension, unspecified; I46.2 Cardiac arrest due to underlying cardiac condition; I50.23 Acute on chronic systolic (congestive) heart failure; E87.1 Hypo-osmolality and hyponatremia; I21.4 Non-ST elevation (NSTEMI) myocardial infarction; I13.0 Hypertensive heart and chronic kidney disease with heart failure and stage 1 through stage 4 chronic kidney disease, or unspecified chronic kidney disease; I25.2 Old myocardial infarction; I25.810 Atherosclerosis of coronary artery bypass graft(s) without angina pectoris; E87.5 Hyperkalemia; I25.119 Atherosclerotic heart disease of native coronary artery with unspecified angina pectoris